=== PATIENT | male | born 1990 | race Caucasian/White ===

== ENCOUNTER 2022-12-02 08:45 | Outpatient (OUT) | payer OTHER, SELFPAY ==
[2022-12-03 04:07] LABS: Prolactin 6.1 ng/mL (4.0-15.2); Testosterone 110 ng/dL (264-916)
== END 2022-12-02 08:46 | disposition home or self-care (01) ==
LOC: LAB 08:53
PROVIDERS: PCP Nurse Practitioner Family; Visit Provider Urology
DX: E29.1 Testicular hypofunction (principal)
CPT/HCPCS: 36415; 84146; 84403

== ENCOUNTER 2022-12-17 20:04 | Inpatient (IN) | payer OTHER, SELFPAY ==
[2022-12-17 20:07] VITALS: BP 129/77; PULSE 128; RESP 22; TEMP 36.9; O2SAT 94; BMI 47.5
[2022-12-17 20:13] VITALS: O2SAT 94
--- NOTE | 2022-12-17 20:17 | ED.URI1 ---
HPI - URI/Sore Throat General Chief Complaint: Upper Respiratory Infection Stated Complaint: uri Time Seen by Provider: 12/17/22 20:12 Source: patient History of Present Illness HPI Narrative: ill for a couple of days. Cough with coughing jags. Chest pain with cough. Short of breath. no fever or nausea. No abdominal pain. Past history of diabetes. Doesn't smoke cigarettes but does vape elicited complaint: Reports cough Related Data Allergies Allergy/AdvReac Type Severity Reaction Status Date / Time No Known Drug Allergies Allergy Verified 12/17/22 20:11 Review of Systems ROS Status of ROS 10 or more systems reviewed and unremarkable except as noted in history and below Exam Constitutional Vital Signs, click to edit/add: Last Vital Signs Temp 98.5 F 12/17/22 20:07 Pulse 122 H 12/17/22 21:05 Resp 20 12/17/22 21:05 BP 129/77 12/17/22 20:07 Pulse Ox 96 12/17/22 21:05 O2 Del Method Nasal Cannula 12/17/22 21:05 O2 Flow Rate 2 12/17/22 21:05 Common normals: no apparent distress, oriented x3, healthy appearing, alert and well nourished [facility] Common normals: normocephalic and head/scalp atraumatic Eye Common normals: EOMs intact bilaterally and conjunctivae normal Chest Common normals: inspection of chest normal and palpation of chest normal Respiratory Common normals: normal respiratory effort, no retractions, no use of accessory muscles and clear to auscultation bilaterally Cardio Common normals: S1 normal heart sound and S2 normal heart sound Rate: tachycardic GI Common normals: Normal to inspection, nondistended, normoactive bowel sounds present, soft to palpation and non-tender Extremity Common normals: normal to inspection and full ROM Neuro Common normals: oriented x3, CN's II-XII intact bilaterally, moves all extremities, no focal motor deficits and no sensory deficits noted Psych Appearance: grossly normal Course Vital Signs Vital signs: Vital Signs Temperature 98.5 F 12/17/22 20:07 Pulse Rate 128 H 12/17/22 20:07 Respiratory Rate 22 12/17/22 20:07 Blood Pressure 129/77 12/17/22 20:07 Pulse Oximetry 94 L 12/17/22 20:07 Oxygen Delivery Method Room Air 12/17/22 20:07 Temperature 98.5 F 12/17/22 20:07 Pulse Rate 122 H 12/17/22 21:05 Respiratory Rate 20 12/17/22 21:05 Blood Pressure 129/77 12/17/22 20:07 Pulse Oximetry 96 12/17/22 21:05 Oxygen Delivery Method Nasal Cannula 12/17/22 21:05 Oxygen Delivery Flow Rate 2 12/17/22 21:05 MDM - URI/Sore Throat MDM Narrative Medical decision making narrative: patient presents with complaints of coughing jags, shortness of breath and feeling ill . chest is clear but he does start coughing after deep breath. No fever. WBC elevated at 14. sodium low at 128 and bicarb low also. Nasal swab positive for enter/rhino virus. Cxray is clear. Patient treated with duoneb without much improvement. pulse ox on 3L NC 90%. Discussed with hospitalist and will plan obs admission. Patient has past history of diabetes. RBS 302. he had no nausea or vomiting Lab Data Labs: Lab Results 12/17/22 12/17/22 Range/Units 20:40 20:55 WBC 14.0 H (4.0-11.0) 10^3/uL RBC 4.75 (4.70-6.10) 10^6/uL Hgb 15.5 (14.0-18.0) g/dL Hct 44.9 (42.0-54.0) % MCV 94.5 H (80.0-94.0) fL MCH 32.6 (25.9-34.0) pg MCHC 34.5 (29.9-35.2) g/dL RDW 13.2 (11.0-15.0) % Plt Count 225 (150-450) 10^3/uL MPV 11.7 (9.5-13.5) fL Neut % (Auto) 88.4 H (43.0-75.0) % Lymph % (Auto) 5.4 L (20.5-60.0) % [place] % (Auto) 5.1 (1.7-12.0) % Eos % (Auto) 0.2 L (0.9-7.0) % Baso % (Auto) 0.5 (0.2-2.0) % Neut # (Auto) 12.4 H (1.4-6.5) 10^3/uL Lymph # (Auto) 0.8 L (1.2-3.8) 10^3/uL [place] # (Auto) 0.7 (0.3-0.8) 10^3/uL Eos # (Auto) 0.0 (0.0-0.7) 10^3/uL Baso # (Auto) 0.1 (0.0-0.1) 10^3/uL Abs Immat Gran (auto) 0.05 H (0.00-0.03) 10^3/uL Imm/Tot Granulo (auto) 0.4 (0.0-0.5) % Sodium 128 L (136-145) mmol/L Potassium 4.2 (3.5-5.1) mmol/L Chloride 95 L (98-107) mmol/L Carbon Dioxide 16.8 L (21.0-32.0) mmol/L Anion Gap 20.4 BUN 8.0 (7.0-18.0) mg/dL Creatinine 0.74 (0.70-1.30) mg/dL Est GFR ( Amer) >60 (>=60) Est GFR (Non-Af Amer) >60 (>=60) BUN/Creatinine Ratio 10.8 Glucose 302 H (74-106) mg/dL Lactate <0.3 L (0.4-2.0) mmol/L Calcium 8.3 L (8.5-10.1) mg/dL Total Bilirubin 1.3 H (0.2-1.0) mg/dL AST 8 L (15-37) U/L ALT 50 (16-63) U/L Alkaline Phosphatase 101 (46-116) U/L Troponin I High Sens 4.4 (4.0-76.1) pg/mL Total Protein 7.6 (6.4-8.2) g/dL Albumin 3.4 (3.4-5.0) g/dL Globulin 4.2 g/dL Albumin/Globulin Ratio 0.8 Adenovirus (PCR) Not detected (NOT DETECTE) C. pneumoniae DNA (PCR) Not detected (NOT DETECTE) Coronavirus Type OC43 Not detected (NOT DETECTE) Coronavirus Type HKU1 Not detected (NOT DETECTE) Coronavirus Type 229E Not detected (NOT DETECTE) Coronavirus Type NL63 Not detected (NOT DETECTE) Human Metapneumovir PCR Not detected (NOT DETECTE) M. pneumoniae (PCR) Not detected (NOT DETECTE) Parainfluenza PCR Not detected (NOT DETECTE) Parainfluenza 2 (PCR) Not detected (NOT DETECTE) Parainfluenza 3 (PCR) Not detected (NOT DETECTE) Parainfluenza 4 (PCR) Not detected (NOT DETECTE) RSV (RT-PCR) Not detected (NOT DETECTE) Entero/Rhino (PCR) Detected A (NOT DETECTE) SARS-CoV-2 (PCR) Not detected (NOT DETECTE) Bordetella pertussis (PCR) Not detected (NOT DETECTE) B parapertussis DNA PCR Not detected (NOT DETECTE) Influenza Type A (PCR) Not detected (NOT DETECTE) Influenza Type B (PCR) Not detected (NOT DETECTE) Discharge Plan Discharge Chief Complaint: Upper Respiratory Infection Clinical Impression: Upper respiratory infection, Acute hyperglycemia, Hypoxemia, Hyponatremia, Viral infection Patient Disposition: Admitted as Observation
--- NOTE | 2022-12-17 20:20 | XR_ITS ---
[address] [address] Patient Name: SUHAIL RAYMOND MRN: [id number] date: 1990 Sex: M Assigned Patient Location: ER Current Patient Location: ER Accession/Order Number: [id number] Exam Date: 12/17/2022 20:50 Report Date: 12/17/2022 21:44 At the request of: NOLAN MOODY Procedure: XR chest 1V ONE-VIEW CHEST RADIOGRAPH, 12/17/2022 8:50 PM EDT COMPARISON: Chest, 05/15/2019 CLINICAL HISTORY: cough/shortness of breath and body aches FINDINGS: No acute cardiopulmonary disease. No pulmonary edema, pneumothorax, or pleural effusion. Normal heart size. No acute osseous abnormality. XR/XR chest 1V IMPRESSION: No acute abnormality identified. Electronically authenticated by: Adry FERNANDEZ Date: 12/17/2022 21:44
[2022-12-17 20:52] VITALS: PULSE 120; RESP 22; O2SAT 95
[2022-12-17] MEDS: IPRATROPIUM/ALBUTEROL SULFATE 3 ML AMPUL.NEB IH (20:52)
[2022-12-17] MEDS: ONDANSETRON PF 4 MG/2 ML VIAL IV (20:57)
[2022-12-17] MEDS: 0.9 % SODIUM CHLORIDE 1,000 ML 999 ML IV (20:57)
[2022-12-17 21:02] VITALS: O2SAT 92
--- NOTE | 2022-12-17 21:02 | PC.NURSE ---
PATIENT STARTED ON OXYGEN AT THIS TIME FOR COMFORT.
[2022-12-17 21:04] LABS: Adenovirus NOT DETECTED (NOT DETECTE); Bordetella parapertussis NOT DETECTED (NOT DETECTE); Coronavirus 229E NOT DETECTED (NOT DETECTE); Coronavirus HKU1 NOT DETECTED (NOT DETECTE); Coronavirus NL63 NOT DETECTED (NOT DETECTE); Coronavirus OC43 NOT DETECTED (NOT DETECTE); Human Metapneumovirus NOT DETECTED (NOT DETECTE); Influenza A NOT DETECTED (NOT DETECTE); Influenza B NOT DETECTED (NOT DETECTE); Mycoplasma pneumoniae NOT DETECTED (NOT DETECTE); Parainfluenza Virus 1 NOT DETECTED (NOT DETECTE); Parainfluenza Virus 2 NOT DETECTED (NOT DETECTE); Parainfluenza Virus 3 NOT DETECTED (NOT DETECTE); Parainfluenza Virus 4 NOT DETECTED (NOT DETECTE); Respiratory Syncytial Virus NOT DETECTED (NOT DETECTE); SARS-CoV-2 NOT DETECTED (NOT DETECTE)
[2022-12-17 21:05] VITALS: PULSE 122; RESP 20; O2SAT 96
[2022-12-17 21:08] LABS: Basophils Absolute Auto 0.1 10^3/uL (0.0-0.1); Basophils Percent Auto 0.5 % (0.2-2.0); Eosinophils Percent Auto 0.2 % (0.9-7.0); Hematocrit 44.9 % (42.0-54.0); Hemoglobin 15.5 g/dL (14.0-18.0); Immature Granulocytes Abs Auto 0.05 10^3/uL (0.00-0.03); Immature Granulocytes Pct Auto 0.4 % (0.0-0.5); Lymphocytes Absolute Auto 0.8 10^3/uL (1.2-3.8); Lymphocytes Percent Auto 5.4 % (20.5-60.0); Mean Corpuscular HGB Conc 34.5 g/dL (29.9-35.2); Mean Corpuscular Hemoglobin 32.6 pg (25.9-34.0); Mean Corpuscular Volume 94.5 fL (80.0-94.0); Mean Platelet Volume 11.7 fL (9.5-13.5); Monocytes Absolute Auto 0.7 10^3/uL (0.3-0.8); Monocytes Percent Auto 5.1 % (1.7-12.0); Neutrophils Absolute Auto 12.4 10^3/uL (1.4-6.5); Neutrophils Percent Auto 88.4 % (43.0-75.0); Platelet Count 225 10^3/uL (150-450); Red Blood Count 4.75 10^6/uL (4.70-6.10); Red Cell Distribution Width 13.2 % (11.0-15.0)
[2022-12-17 21:26] LABS: Lactate/Lactic Acid <0.3 mmol/L (0.4-2.0)
[2022-12-17 21:33] LABS: Alanine Aminotransferase 50 U/L (16-63); Albumin Globulin Ratio 0.8; Albumin Level 3.4 g/dL (3.4-5.0); Alkaline Phosphatase 101 U/L (46-116); Anion Gap 20.4; Aspartate Amino Transferase 8 U/L (15-37); BUN Creatinine Ratio 10.8; Bilirubin Total 1.3 mg/dL (0.2-1.0); Calcium 8.3 mg/dL (8.5-10.1); Carbon Dioxide 16.8 mmol/L (21.0-32.0); Chloride 95 mmol/L (98-107); Estimated GFR (African America >60 (>=60); Estimated GFR (Non-African Ame >60 (>=60); Globulin 4.2 g/dL; Glucose 302 mg/dL (74-106); Potassium 4.2 mmol/L (3.5-5.1); Sodium 128 mmol/L (136-145); Total Protein 7.6 g/dL (6.4-8.2); Troponin I High Sensitivity 4.4 pg/mL (4.0-76.1)
[2022-12-17 21:57] LABS: Human Rhinovirus/Enterovirus DETECTED (NOT DETECTE)
[2022-12-17 23:43] VITALS: BP 137/81; PULSE 118; RESP 20; TEMP 37.6; O2SAT 92; BMI 49.9
[2022-12-18] VITALS (8 sets, daily range): BP systolic 96–130; BP diastolic 60–79; PULSE 91–114; RESP 18–24; TEMP 36.3–37; O2SAT 90–95
[2022-12-18 00:26] LABS: Glucometer 263 mg/dL (74-106)
--- NOTE | 2022-12-18 00:51 | P.PN_ITS ---
Progress Note: Subjective Subjective Interval history: CC: Fever, chills, generalized body aches, shortness of breath, dry cough HPI: This is usually healthy 32 years old obese white male who presents with above complaints. Patient stating that he has not been feeling well for the last few days developing above symptoms. On evaluation emergency room patient found to be hypoxic. Patient not using oxygen at home. No previous history of hypoxic. Patient tested positive for entero and rhinovirus. No signs of pneumonia on chest x-ray. Admitted for further evaluation and treatment Exam Narrative Exam Narrative: ROS: 1.General: See above 2.HEENT: no GALDAMEZ, no blurry vision, no swallow problems, no nasal congestion, no sore throat 3.Pulmonary: no cough, SOB, wheezes 4.CVS: no CP, no palpitations, no GEIGER, no SOB, no intermittent claudication 5.GI: no nausea, vomiting or diarrhea, no abdominal pain, no constipation, no hematemesis or hematochezia 6.: no renal colic, no hematuria, urinary frequency or urgency 7.Extremities: no edema 8.Neurological: no dizziness, vertigo, double or blurry vision, no no focal weakness, no paresthesia, no swallow or speech problems 9.Musculosceletal: no joint pains, no joint swelling, no back pain 10.Dermatological: no skin rashes, no lesions, no pruritus 11.Hematological: no bleeding, no hx/o clots 12.Endocrinological: no heat/cold intolerance, no hx/o diabetes 13.Psychiatric: no suicidal or homicidal thoughts Physical Exam: Not in distress, pleasant, lucid, cooperative, morbidly obese Head - atraumatic, eyes - pupils equal, round, reactive to light, extra ocular movement intact, MMM Neck - supple, thyroid not enlarged, LN not palpated Lungs - clear to auscultation, no dullness on percussion CVS - heart sounds S1, S2, no additional murmurs gallop, regular rate and rhythm Gastrointestinal?abdomen is soft, non-tender, non-distended, no organomegaly, positive bowel sounds Extremities no clubbing, cyanosis or edema Neurological?cranial nerve II?XII grossly intact, no meningeal signs, no cerebellar signs, no sensory deficit Musculoskeletal - joints, no effusions, ROM preserved Dermatological - the skin dry, warm, no rashes Psychiatric?patient is AAO X3, patient has normal affect Constitutional Vital Signs, click to edit/add: Last Vital Signs Temp 99.7 F 12/17/22 23:43 Pulse 118 H 12/17/22 23:43 Resp 20 12/17/22 23:43 BP 137/81 12/17/22 23:43 Pulse Ox 92 L 12/17/22 23:43 O2 Del Method Nasal Cannula 12/17/22 23:43 O2 Flow Rate 2.5 12/17/22 23:43 Progress Note: Objective Labs Labs: Short CBC 12/17/22 Range/Units 20:40 WBC 14.0 H (4.0-11.0) 10^3/uL Hgb 15.5 (14.0-18.0) g/dL Hct 44.9 (42.0-54.0) % Plt Count 225 (150-450) 10^3/uL BMP 12/17/22 20:40 Sodium 128 L Potassium 4.2 Chloride 95 L Carbon Dioxide 16.8 L BUN 8.0 Creatinine 0.74 Glucose 302 H Calcium 8.3 L Liver Function 12/17/22 Range/Units 20:40 Total Bilirubin 1.3 H (0.2-1.0) mg/dL AST 8 L (15-37) U/L ALT 50 (16-63) U/L Alkaline Phosphatase 101 (46-116) U/L Albumin 3.4 (3.4-5.0) g/dL Progress Note: A&P Assessment and Plan (1) Upper respiratory infection: Assessment and Plan: Patient tested positive for entero and rhinovirus?symptoms control (2) Hypoxemia: Assessment and Plan: Most probably related to the above. Cannot exclude chronic due to patient's body habitus. I am going to check blood gas to delineate further. Also going to check CT angiogram of the chest to rule out pulmonary embolism (patient has a history of) (3) Diabetes: Assessment and Plan: I am going to continue with ADA diet, Accu-Cheks, coverage with insulin sliding scale (4) History of pulmonary embolism: Assessment and Plan: See above Plan END: As the provider for the telehealth service, I attest that I introduced myself to the patient, provided my credentials, disclosed by location and determined that based on a review of the patient's chart and discussion with members of the patient's treatment team, telemedicine via real-time, 2 way, and interactive audio and video platform is an appropriate and effective means of providing the service. ?The patient and I mutually agree this visit is appropriate for telemedicine. ?[place] ?The encounter took approximately 35 minutes. ?The nurse was present during the entire time and I was able to move the stethoscope in appropriate directions. ?The patient was evaluated at the Hospital ? Portions of this note may be dictated using [employer] voice recognition software. Variances in spelling and vocabulary are possible and unintentional. Not all errors may be caught and/or corrected. Please notify the author if any discrepancies are noted and/or if the meaning of any statement is unclear.? ? Patient verbally consented for treatment via video visit with patient currently located at the [facility] and provider located in [place]. Telemedicine Attestation Telemedicine Attestation I conducted this encounter from [[place]] via secure live, [id number] video conference with the patient, located at [facility] with [hypoxia]. Prior to the interview, the risks and benefits of telemedicine were discussed with the patient and verbal consent was obtained.
--- NOTE | 2022-12-18 00:56 | CT_ITS ---
The [address] [address] Patient Name: SUHAIL RAYMOND MRN: [id number] date: 1990 Sex: M Assigned Patient Location: MS Current Patient Location: [place] Accession/Order Number: [id number] Exam Date: 12/18/2022 02:40 Report Date: 12/18/2022 03:34 At the request of: SANDRA Olivarez SISTER Procedure: CT angio chest EXAM: CT angio chest HISTORY: pulmonary embolism? COMPARISON: 10/04/2020, MR 10/25/2020 TECHNIQUE: CT angiography of the pulmonary arteries following the administration of intravenous contrast. Coronal and sagittal MIP (maximum intensity projection) images were performed. FINDINGS: The study is technically adequate for the diagnosis of pulmonary embolism, with good contrast bolus to the pulmonary arteries. TUBES AND IMPLANTS: None. CHEST WALL AND LOWER NECK: Unremarkable. BONES: No suspicious lesions. Multilevel degenerative changes of the spine UPPER ABDOMEN: Hepatic steatosis. Hyperdense focus seen in the left liver lobe measuring up to 1.9 centimeters prior study dated 10/25/2020 MEDIASTINUM AND JOSEP: Unremarkable. AORTA: Unremarkable. PULMONARY ARTERIES: Unremarkable. HEART: Borderline enlarged CORONARY ARTERIES: No coronary artery calcifications. LUNG AND AIRWAYS: Confluent airspace seen in the right upper lobe and in the bilateral lower lobes PLEURA: Unremarkable. CT/CT angio chest IMPRESSION: 1. No evidence for pulmonary embolism. 2. Confluent airspace disease seen in the right upper lobe and in the bilateral lower lobe concerning for multifocal pneumonia. 3. Hepatic steatosis. Stable size of 1.9 centimeter hyperdense focus seen in the left lobe of the liver compared to 10/04/2020, suggesting benign etiology. Electronically authenticated by: MARY DHALIWAL Date: 12/18/2022 03:34
[2022-12-18 01:48] LABS: ABG PCO2 34.4 mmHg (35.0-45.0); Allen Test POSITIVE (POSITIVE); Base Excess ABG -9.7 mmol/L (-2.0-2.0); HCO3 ABG 16.8 mmol/L (22.0-26.0); Liters per Minute 2; O2 Mode NASAL CANNULA; Oxygen Saturation ABG 93.4 %; PO2 ABG 68.8 mmHg (80.0-100.0); Puncture Site R RADIAL
[2022-12-18 01:50] LABS: pH ABG 7.297 (7.350-7.450)
[2022-12-18] MEDS: INSULIN DETEMIR 300 UNIT/3 ML INSULN.PEN 10 UNIT SUBQ ×2 (01:51→21:28)
[2022-12-18] MEDS: IBUPROFEN 600 MG TABLET PO (01:51)
[2022-12-18] MEDS: 0.9 % SODIUM CHLORIDE 1,000 ML 100 ML IV ×2 (01:52→15:22)
[2022-12-18] MEDS: IPRATROPIUM/ALBUTEROL SULFATE 3 ML AMPUL.NEB IH ×4 (04:21→23:33)
[2022-12-18 05:13] LABS: Basophils Absolute Auto 0.1 10^3/uL (0.0-0.1); Basophils Percent Auto 0.4 % (0.2-2.0); Eosinophils Absolute Auto 0.1 10^3/uL (0.0-0.7); Eosinophils Percent Auto 0.4 % (0.9-7.0); Hematocrit 42.3 % (42.0-54.0); Hemoglobin 14.4 g/dL (14.0-18.0); Immature Granulocytes Abs Auto 0.05 10^3/uL (0.00-0.03); Immature Granulocytes Pct Auto 0.4 % (0.0-0.5); Lymphocytes Absolute Auto 1.8 10^3/uL (1.2-3.8); Lymphocytes Percent Auto 12.4 % (20.5-60.0); Mean Corpuscular Hemoglobin 32.7 pg (25.9-34.0); Mean Corpuscular Volume 96.1 fL (80.0-94.0); Mean Platelet Volume 11.2 fL (9.5-13.5); Monocytes Absolute Auto 0.8 10^3/uL (0.3-0.8); Monocytes Percent Auto 5.8 % (1.7-12.0); Neutrophils Absolute Auto 11.5 10^3/uL (1.4-6.5); Neutrophils Percent Auto 80.6 % (43.0-75.0); Platelet Count 207 10^3/uL (150-450); Red Cell Distribution Width 13.5 % (11.0-15.0); White Blood Count 14.3 10^3/uL (4.0-11.0)
[2022-12-18 05:22] LABS: Anion Gap 20.9; BUN Creatinine Ratio 11.2; Calcium 8.3 mg/dL (8.5-10.1); Chloride 97 mmol/L (98-107); Estimated GFR (African America >60 (>=60); Estimated GFR (Non-African Ame >60 (>=60); Glucose 308 mg/dL (74-106); Potassium 3.9 mmol/L (3.5-5.1); Sodium 130 mmol/L (136-145)
--- NOTE | 2022-12-18 08:28 | P.HP_ITS ---
H&P: HPI History of Present Illness Chief complaint: uri Narrative: Patient presented to the emergency room with increasing respiratory distress, found to be hypoxic in ER, work-up showed possible viral with positive rhinovirus but multifocal pneumonia with leukocytosis with left shift, respiratory and metabolic acidosis. Patient mated for work-up and treatment of same Review of Systems ROS Status of ROS 10 or more systems reviewed and unremarkable except as noted in history and below Constitutional Denies: fever Eyes Denies: change in vision Ears, nose, mouth, and throat Denies: throat pain Cardiovascular Denies: chest pain Respiratory Reports: shortness of breath, cough, wheezing and change in phlegm color Gastrointestinal Denies: abdominal pain Genitourinary Denies: painful urination Musculoskeletal Denies: back pain PFSH PFSH Medical History (Updated 12/18/22 @ 08:39 by Hossein Santos MD) Diabetic acidosis, type II ?E11.10 - Type 2 diabetes mellitus with ketoacidosis without coma (ICD-10) Gangrene ?I96 - Gangrene, not elsewhere classified (ICD-10) Pulmonary embolus ?I26.99 - Other pulmonary embolism without acute cor pulmonale (ICD-10) Surgical History (Updated 12/17/22 @ 23:41 by Cherise Garcia) H/O vasectomy ?Z98.52 - Vasectomy status (ICD-10) [place] teeth extracted ?K08.409 - Partial loss of teeth, unspecified cause, unspecified class (ICD- 10) Family History (Updated 12/17/22 @ 23:41 by Cherise Garcia) Grandfather Family history of cancer Grandmother Family history of cancer Social History (Updated 12/17/22 @ 23:43 by Cherise Garcia) Within the past year, how often did you have a drink containing alcohol: never Score interpretation: A score less than 4 is consistent with normal alcohol consumption. Do you use any of these nicotine containing products: vaping products Non-prescribed substance use: denies use Previous occupational history: none Highest level of school completed/degree received: high school graduate Are you now , , , , never or living with a partner: In a typical week, how many times do you talk on the telephone with family, friends, or neighbors: once per week How often do you get together with friends or relatives: once per week How often do you attend restorationism or zoroastrianism services: never Do you belong to any clubs or organizations such as restorationism groups unions, fraternal or athletic groups, or school groups: no Total score: 1 Score interpretation: A score of less than or equal to 1 indicates the most socially isolated. Little interest or pleasure in doing things: several days Feeling down, depressed, or hopeless: several days Feel stressed/tense/nervous/anxious/difficulty sleeping: only a little Do you think of yourself as: straight/heterosexual Gender Identity: male Meds Home Medications and Allergies Home Medications Medication Instructions Recorded Confirmed Type No Known Home Medications 12/17/22 12/17/22 History Allergies Allergy/AdvReac Type Severity Reaction Status Date / Time No Known Drug Allergies Allergy Verified 12/17/22 20:11 Exam Constitutional Vital Signs, click to edit/add: Last Vital Signs Temp 98 F 12/18/22 05:21 Pulse 114 H 12/18/22 05:21 Resp 20 12/18/22 05:21 BP 130/79 12/18/22 05:21 Pulse Ox 94 L 12/18/22 05:21 O2 Del Method Nasal Cannula 12/18/22 05:21 O2 Flow Rate 2 12/18/22 05:21 Documenting provider has reviewed patient's vital signs: yes Common normals: apparent distress General appearance: in distress Chest Common normals: inspection of chest normal Respiratory Common normals: abnormal respiratory effort and not clear to ascultation bilaterally Auscultation: rhonchi (Diffuse), wheezes and egophony (Egophony bilateral lower lobes) Cardio Common normals: regular rate, regular rhythm and no murmurs GI Common normals: Normal to inspection, nondistended, normoactive bowel sounds present (Morbidly obese) Results Labs Labs: Short CBC 12/17/22 12/18/22 Range/Units 20:40 04:39 WBC 14.0 H 14.3 H (4.0-11.0) 10^3/uL Hgb 15.5 14.4 (14.0-18.0) g/dL Hct 44.9 42.3 (42.0-54.0) % Plt Count 225 207 (150-450) 10^3/uL BMP 12/17/22 12/18/22 20:40 04:39 Sodium 128 L 130 L Potassium 4.2 3.9 Chloride 95 L 97 L Carbon Dioxide 16.8 L 16.0 L BUN 8.0 9.0 Creatinine 0.74 0.80 Glucose 302 H 308 H Calcium 8.3 L 8.3 L Liver Function 12/17/22 Range/Units 20:40 Total Bilirubin 1.3 H (0.2-1.0) mg/dL AST 8 L (15-37) U/L ALT 50 (16-63) U/L Alkaline Phosphatase 101 (46-116) U/L Albumin 3.4 (3.4-5.0) g/dL ABG ABG results: 12/18/22 01:40 ABG pH 7.297 L* ABG pCO2 34.4 L ABG pO2 68.8 L ABG HCO3 16.8 L ABG O2 Saturation 93.4 ABG Base Excess -9.7 L Assessment and Plan Assessment and Plan (1) Upper respiratory infection: (2) Hypoxemia: (3) Diabetes: (4) History of pulmonary embolism: Plan Sinus tachycardia, acute hypoxic respiratory failure, relative hypoxia on 2 L, metabolic and respiratory acidosis with hyponatremia, leukocytosis with left shift, severely uncontrolled diabetes mellitus secondary to multifocal pneumonia resulting in sepsis-did test positive for viral agent but with progression of disease and left shift on CBC will add IV antibiotics, wheezes noted on exam so we will change patient's aerosols to [id number] with as needed aerosols as well. Check sputum culture Poorly controlled diabetes mellitus-increase insulin sliding scale-we will hold off on steroids to treat the above secondary to his poorly controlled diabetes already Hyponatremia likely secondary to dehydration somewhat improved today. Continue to monitor Leukocytosis with left shift secondary to multifocal pneumonia-continue with antibiotics as above Hepatic steatosis with mild borderline elevated bilirubin-we will monitor this more as an outpatient Morbidly obese with possible pickwickian syndrome-diet management With severity of illness high secondary to the multifocal pneumonia with hypoxia in the metabolic and respiratory acidosis-change patient to inpatient status
[2022-12-18] MEDS: BUDESONIDE 0.5 MG/2 ML AMPULE NEB IH ×2 (09:26→23:34)
[2022-12-18] MEDS: CEFTRIAXONE 1,000 MG in 0.9 % SODIUM CHLORIDE 50 ML 100 MG IV (09:33)
[2022-12-18] MEDS: L. ACIDOPHILUS/L.BULGARICUS 1 PACKET GRAN.PACK PO ×2 (09:33→21:28)
[2022-12-18] MEDS: INSULIN ASPART 300 UNIT/3 ML PEN SUBQ ×4 (10:33→21:29)
[2022-12-18] MEDS: LEVOFLOXACIN IN DEXTROSE 5 % 750 MG/150 ML IV.SOLN 100 MG IV (10:34)
[2022-12-18] MEDS: ACETAMINOPHEN 500 MG TABLET 1000 MG PO ×3 (10:36→23:10)
[2022-12-18 11:35] LABS: Glucometer 268 mg/dL (74-106)
[2022-12-18 16:53] LABS: Glucometer 249 mg/dL (74-106)
[2022-12-18] MEDS: FLUTICASONE PROPIONATE 50 MCG NASAL SPRAY 2 SPRAY NS (18:26)
[2022-12-18 20:55] LABS: Glucometer 247 mg/dL (74-106)
[2022-12-18] MEDS: SOLIFENACIN SUCCINATE 10 MG TABLET PO (21:28)
[2022-12-19] MEDS: 0.9 % SODIUM CHLORIDE 1,000 ML 100 ML IV (01:26)
[2022-12-19] MEDS: IBUPROFEN 600 MG TABLET PO (01:31)
[2022-12-19 05:32] VITALS: PULSE 82; RESP 18; O2SAT 94
[2022-12-19] MEDS: IPRATROPIUM/ALBUTEROL SULFATE 3 ML AMPUL.NEB IH ×2 (05:32→11:12)
[2022-12-19 05:48] LABS: Basophils Percent Auto 0.6 % (0.2-2.0); Eosinophils Absolute Auto 0.1 10^3/uL (0.0-0.7); Hematocrit 38.2 % (42.0-54.0); Hemoglobin 12.6 g/dL (14.0-18.0); Immature Granulocytes Abs Auto 0.05 10^3/uL (0.00-0.03); Immature Granulocytes Pct Auto 0.8 % (0.0-0.5); Lymphocytes Absolute Auto 1.3 10^3/uL (1.2-3.8); Lymphocytes Percent Auto 19.9 % (20.5-60.0); Mean Corpuscular Hemoglobin 32.1 pg (25.9-34.0); Mean Corpuscular Volume 97.4 fL (80.0-94.0); Mean Platelet Volume 11.2 fL (9.5-13.5); Monocytes Absolute Auto 0.5 10^3/uL (0.3-0.8); Monocytes Percent Auto 7.3 % (1.7-12.0); Neutrophils Absolute Auto 4.6 10^3/uL (1.4-6.5); Neutrophils Percent Auto 69.4 % (43.0-75.0); Platelet Count 179 10^3/uL (150-450); Red Blood Count 3.92 10^6/uL (4.70-6.10); White Blood Count 6.6 10^3/uL (4.0-11.0)
[2022-12-19] MEDS: HYDROCODONE/ACET 5-325 MG TABLET 1 TAB PO (05:51)
[2022-12-19 05:54] VITALS: BP 124/60; PULSE 71; RESP 18; TEMP 36.8; O2SAT 92
[2022-12-19 06:14] LABS: Alanine Aminotransferase 30 U/L (16-63); Albumin Globulin Ratio 0.8; Albumin Level 2.9 g/dL (3.4-5.0); Alkaline Phosphatase 81 U/L (46-116); Anion Gap 16.7; Aspartate Amino Transferase <5 U/L (15-37); BUN Creatinine Ratio 11.9; Bilirubin Total 0.3 mg/dL (0.2-1.0); Calcium 8.2 mg/dL (8.5-10.1); Carbon Dioxide 18.9 mmol/L (21.0-32.0); Chloride 101 mmol/L (98-107); Estimated GFR (African America >60 (>=60); Estimated GFR (Non-African Ame >60 (>=60); Globulin 3.8 g/dL; Glucose 254 mg/dL (74-106); Potassium 3.6 mmol/L (3.5-5.1); Sodium 133 mmol/L (136-145); Total Protein 6.7 g/dL (6.4-8.2)
[2022-12-19 07:50] LABS: Glucometer 248 mg/dL (74-106)
[2022-12-19] MEDS: INSULIN ASPART 300 UNIT/3 ML PEN SUBQ ×2 (08:26→11:59)
[2022-12-19] MEDS: CEFTRIAXONE 1,000 MG in 0.9 % SODIUM CHLORIDE 50 ML 100 MG IV (08:28)
[2022-12-19] MEDS: FLUTICASONE PROPIONATE 50 MCG NASAL SPRAY 2 SPRAY NS (08:29)
--- NOTE | 2022-12-19 09:02 | PM.PN ---
Progress Note: Subjective Subjective Interval history: CC: Fever, chills, generalized body aches, shortness of breath, dry cough HPI: This is usually healthy 32 years old obese white male who presents with above complaints. Patient stating that he has not been feeling well for the last few days developing above symptoms. On evaluation emergency room patient found to be hypoxic. Patient not using oxygen at home. No previous history of hypoxic. Patient tested positive for entero and rhinovirus. No signs of pneumonia on chest x-ray. Admitted for further evaluation and treatment Exam Constitutional Vital Signs, click to edit/add: Last Vital Signs Temp 98.2 F 12/19/22 05:54 Pulse 71 12/19/22 05:54 Resp 18 12/19/22 05:54 BP 124/60 12/19/22 05:54 Pulse Ox 92 L 12/19/22 05:54 O2 Del Method Room Air 12/19/22 05:54 O2 Flow Rate 2 12/18/22 05:21 Progress Note: Objective Labs Labs: Short CBC 12/19/22 Range/Units 05:30 WBC 6.6 (4.0-11.0) 10^3/uL Hgb 12.6 L (14.0-18.0) g/dL Hct 38.2 L (42.0-54.0) % Plt Count 179 (150-450) 10^3/uL BMP 12/19/22 05:30 Sodium 133 L Potassium 3.6 Chloride 101 Carbon Dioxide 18.9 L BUN 8.0 Creatinine 0.67 L Glucose 254 H Calcium 8.2 L Liver Function 12/19/22 Range/Units 05:30 Total Bilirubin 0.3 (0.2-1.0) mg/dL AST <5 L (15-37) U/L ALT 30 (16-63) U/L Alkaline Phosphatase 81 (46-116) U/L Albumin 2.9 L (3.4-5.0) g/dL Progress Note: A&P Assessment and Plan (1) Upper respiratory infection: (2) Hypoxemia: (3) Diabetes: (4) History of pulmonary embolism:
[2022-12-19] MEDS: LEVOFLOXACIN IN DEXTROSE 5 % 750 MG/150 ML IV.SOLN 100 MG IV (09:40)
[2022-12-19 10:30] VITALS: O2SAT 94; O2SAT 96
[2022-12-19 11:10] LABS: Glucometer 303 mg/dL (74-106)
[2022-12-19 11:12] VITALS: PULSE 92; O2SAT 94
[2022-12-19] MEDS: BUDESONIDE 0.5 MG/2 ML AMPULE NEB IH (11:12)
--- NOTE | 2022-12-19 11:57 | PM.DS1 ---
DS: Providers Provider Date of admission: 12/18/22 08:59 Primary care physician: KRUPA DÍAZ Admitting clinician: Hossein Sanots Discharging clinician: Lisa Joyce DS: Diagnosis Discharge Diagnosis (1) Multifocal pneumonia: (2) Upper respiratory infection: (3) Hypoxemia: (4) Diabetes: (5) History of pulmonary embolism: DS: Summary Hospital Course Hospital Course: patient was found to have multifocal pneumonia as seen on CTA of the chest,was placed on Rocephin and Levaquin, scheduled nebulizer treatments and oxygen therapy as needed. At the time of discharge patient was saturating normal on room air also had normal saturation with ambulation. normal white blood cell count of 6.6, will be discharged home on Levaquin 750 mg daily ?5 days, albuterol inhaler to use every four hours while awake for the next two days and then just as needed and Tessalon Perles to use just as needed. Patient will have close follow-up with his primary care physician within 3-5 days to further assess his diabetes as an outpatient. Is to resume all other home medications. Patient is stable at the time of discharge please return to the hospital with any worsening signs or symptoms. Status at Discharge Functional status at discharge: independent ambulation Time Spent with Patient Time attestation: Total time spent providing and/or coordinating discharge services: Time spent: greater than 30 minutes Exam Narrative Exam Narrative: General: Patient is alert, and oriented to person, place and time with normal affect, proper hygiene, mobid obesity Skin: no visible rashes, or ulcers Head: atraumatic, acephalic Eyes: PERRLA, no nystagmus present, conjunctiva clear, no scleral icterus Heart: Normal rate and rhythm, no murmurs/rubs/gallops Lungs: no audible wheezes, crackles and normal breath sounds all lung chavis Abdomen: Normal audible bowel sounds, no distension, No palpable masses, no organomegaly, no rebound/guarding/ or rigidity Musculoskeletal: no swelling bilateral lower extremities Vascular: Normal carotid, radial, femoral, posterior tibial, and dorsalis pedis pulses Lymph: no supraclavicular, axillary, or anterior/posterior cervical adenopathy Neuro: CN II-X grossly intact, normal sensation upper and lower extremities Constitutional Vital Signs, click to edit/add: Last Vital Signs Temp 98.2 F 12/19/22 05:54 Pulse 92 H 12/19/22 11:12 Resp 18 12/19/22 05:54 BP 124/60 12/19/22 05:54 Pulse Ox 94 L 12/19/22 11:12 O2 Del Method Room Air 12/19/22 11:12 O2 Flow Rate 2 12/18/22 05:21 DS: Data Data Completed and Pending Labs on day of discharge: Labs from last 24 hours 12/19/22 12/19/22 12/19/22 11:09 07:49 05:30 WBC 6.6 RBC 3.92 L Hgb 12.6 L Hct 38.2 L MCV 97.4 H MCH 32.1 MCHC 33.0 RDW 14.0 Plt Count 179 MPV 11.2 Neut % (Auto) 69.4 Lymph % (Auto) 19.9 L Gentry % (Auto) 7.3 Eos % (Auto) 2.0 Baso % (Auto) 0.6 Neut # (Auto) 4.6 Lymph # (Auto) 1.3 Gentry # (Auto) 0.5 Eos # (Auto) 0.1 Baso # (Auto) 0.0 Abs Immat Gran (auto) 0.05 H Imm/Tot Granulo (auto) 0.8 H Sodium 133 L Potassium 3.6 Chloride 101 Carbon Dioxide 18.9 L Anion Gap 16.7 BUN 8.0 Creatinine 0.67 L Est GFR ( Amer) >60 Est GFR (Non-Af Amer) >60 BUN/Creatinine Ratio 11.9 Glucose 254 H Calcium 8.2 L Total Bilirubin 0.3 AST <5 L ALT 30 Alkaline Phosphatase 81 Total Protein 6.7 Albumin 2.9 L Globulin 3.8 Albumin/Globulin Ratio 0.8 POC Glucose 303 H 248 H 12/18/22 12/18/22 20:49 16:53 WBC RBC Hgb Hct MCV MCH MCHC RDW Plt Count MPV Neut % (Auto) Lymph % (Auto) Gentry % (Auto) Eos % (Auto) Baso % (Auto) Neut # (Auto) Lymph # (Auto) Gentry # (Auto) Eos # (Auto) Baso # (Auto) Abs Immat Gran (auto) Imm/Tot Granulo (auto) Sodium Potassium Chloride Carbon Dioxide Anion Gap BUN Creatinine Est GFR ( Amer) Est GFR (Non-Af Amer) BUN/Creatinine Ratio Glucose Calcium Total Bilirubin AST ALT Alkaline Phosphatase Total Protein Albumin Globulin Albumin/Globulin Ratio POC Glucose 247 H 249 H Discharge Plan Discharge Disposition: Home, Self-Care Discharge Medications: New benzonatate 100 mg Capsule 200 mg PO Q8H PRN (Reason: Cough) 10 Days Qty: 30 0RF albuterol sulfate 90 mcg/actuation HFA aerosol inhaler 2 inh inhalation Q4H PRN (Reason: shortness of breath or wheezing) 30 Days Qty: 8.5 0RF levofloxacin 750 mg tablet 750 mg PO DAILY 5 Days Qty: 5 0RF Continued imipramine pamoate 100 mg capsule 200 mg PO BEDTIME Levemir FlexPen 100 unit/mL (3 mL) insulin pen 100 unit subcut BID solifenacin 10 mg tablet 10 mg PO DAILY metformin 1,000 mg tablet 1,000 mg PO BID Activity: increase activity as tolerated Diet: advance to your usual diet Patient Instructions: Upper Respiratory Infection (DC) Activity Restrictions/Additional Instructions: Use albuterol every 4 hours while awake for 2 days then just as he needs it Forms: Portal Instructions Follow Up Appointments: Follow up with Dr Santos in 3-5 days. Please call Wednesday morning to make an appt - [phone] Discharge Date/Time: 12/19/22 13:48
--- NOTE | 2022-12-21 15:43 | CM.DCFOLLOWU ---
1st attempt discharge follow up call made by Floridalma Madison on 12/21/22, no answer at this time
--- NOTE | 2022-12-23 16:14 | CM.DCFOLLOWU ---
2nd attempt discharge follow up call made by Floridalma Madison on 12/23/22, no answer at this time.
--- NOTE | 2022-12-24 15:49 | CM.DCFOLLOWU ---
3 discharge follow up calls were attempted, no answer each time.
== END 2022-12-19 13:48 | disposition home or self-care (01) | DRG 720 ==
LOC: ER 23:02 → MS 23:41
PROVIDERS: Family Medicine; Internal Medicine; Admitting Provider Family Medicine; Emergency Provider Internal Medicine; Family Provider Family Medicine; PCP Nurse Practitioner Family; Visit Provider Family Medicine
DX: A41.9 Sepsis, unspecified organism (principal); J18.8 Other pneumonia, unspecified organism; J96.01 Acute respiratory failure with hypoxia; E87.4 Mixed disorder of acid-base balance; E87.1 Hypo-osmolality and hyponatremia; E66.2 Morbid (severe) obesity with alveolar hypoventilation; R65.20 Severe sepsis without septic shock; J06.9 Acute upper respiratory infection, unspecified; B34.1 Enterovirus infection, unspecified; R00.0 Tachycardia, unspecified; E11.65 Type 2 diabetes mellitus with hyperglycemia; E86.0 Dehydration; K76.0 Fatty (change of) liver, not elsewhere classified; Z68.42 Body mass index [BMI] 45.0-49.9, adult; Z79.84 Long term (current) use of oral hypoglycemic drugs; Z86.711 Personal history of pulmonary embolism; Z98.52 Vasectomy status; Z80.9 Family history of malignant neoplasm, unspecified
CPT/HCPCS: 0202U; 36415; 36600; 71045; 71275; 80048; 80053; 82805; 82948; 83605; 83880; 84484; 85025; 87070; 94640; 94761; 96365; 96366; 96367; 96375; 99285; G0378; Q3014; Q9967

== ENCOUNTER 2023-02-23 19:09 | Emergency (ER) | payer OTHER, SELFPAY ==
[2023-02-23 19:15] VITALS: BP 124/82; PULSE 100; RESP 18; TEMP 37; O2SAT 95; BMI 48.7
--- NOTE | 2023-02-23 19:29 | PC.NURSE ---
Pt presents to ER for left sided ear pain and sinus pressure Pt states this has been going on for several days and is worse at night time and mornings
--- NOTE | 2023-02-23 19:36 | ED_ITS ---
HPI - URI/Sore Throat General Chief Complaint: Upper Respiratory Infection Stated Complaint: URTI Time Seen by Provider: 02/23/23 19:20 Source: patient Limitations: no limitations History of Present Illness HPI Narrative: presents complaining of left sinus pressure for a couple of days and now has left ear pain. Tried irrigating his ear but it still feels like it it plugged. No dizziness , headache or fever. He is diabetic but states his BS are controlled. No associated nausea Related Data Allergies Allergy/AdvReac Type Severity Reaction Status Date / Time No Known Drug Allergies Allergy Verified 02/23/23 19:19 Review of Systems ROS Status of ROS 10 or more systems reviewed and unremark able except as noted in history and below [facility] Medical History (Updated 02/23/23 @ 19:40 by [place] Mor[place] MD) History of pulmonary embolism ?Z86.711 - Personal history of pulmonary embolism (ICD-10) Diabetes ?E11.9 - Type 2 diabetes mellitus without complications (ICD-10) Gangrene ?I96 - Gangrene, not elsewhere classified (ICD-10) Pulmonary embolus ?I26.99 - Other pulmonary embolism without acute cor pulmonale (ICD-10) Diabetic acidosis, type II ?E11.10 - Type 2 diabetes mellitus with ketoacidosis without coma (ICD-10) Acute hyperglycemia ?R73.9 - Hyperglycemia, unspecified (ICD-10) Surgical History (Updated 12/17/22 @ 23:41 by Cherise Garcia) [place] teeth extracted ?K08.409 - Partial loss of teeth, unspecified cause, unspecified class (ICD- 10) H/O vasectomy ?Z98.52 - Vasectomy status (ICD-10) Family History (Updated 12/17/22 @ 23:41 by Cherise Garcia) Grandfather Family history of cancer Grandmother Family history of cancer Social History (Updated 12/17/22 @ 23:43 by Cherise Garcia) Within the past year, how often did you have a drink containing alcohol: never Score interpretation: A score less than 4 is consistent with normal alcohol consumption. Smoking status: Current every day smoker Do you use any of these nicotine containing products: vaping products Non-prescribed substance use: denies use Previous occupational history: none Highest level of school completed/degree received: high school graduate Are you now , , , , never or living with a partner: In a typical week, how many times do you talk on the telephone with family, friends, or neighbors: once per week How often do you get together with friends or relatives: once per week How often do you attend orthodox or moravian services: never Do you belong to any clubs or organizations such as orthodox groups unions, fraternal or athletic groups, or school groups: no Total score: 1 Score interpretation: A score of less than or equal to 1 indicates the most socially isolated. Little interest or pleasure in doing things: several days Feeling down, depressed, or hopeless: several days Feel stressed/tense/nervous/anxious/difficulty sleeping: only a little Do you think of yourself as: straight/heterosexual Gender Identity: male Exam Constitutional Vital Signs, click to edit/add: Last Vital Signs Temp 98.6 F 02/23/23 19:15 Pulse 100 H 02/23/23 19:15 Resp 18 02/23/23 19:15 BP 124/82 02/23/23 19:15 Pulse Ox 95 02/23/23 19:15 O2 Del Method Room Air 02/23/23 19:15 Common normals: no apparent distress, oriented x3, no limitations, healthy appearing, alert and well nourished HENNM Other: left TM inflamed Eye Common normals: PERRL, EOMs intact bilaterally and conjunctivae normal Respiratory Common normals: normal respiratory effort, no retractions, no use of accessory muscles and clear to auscultation bilaterally Cardio Common normals: regular rate, regular rhythm, S1 normal heart sound and S2 normal heart sound Extremity Common normals: normal to inspection and full ROM Neuro Common normals: CN's II-XII intact bilaterally, moves all extremities and no focal motor deficits Psych Appearance: grossly normal Course Vital Signs Vital signs: Vital Signs Temperature 98.6 F 02/23/23 19:15 Pulse Rate 100 H 02/23/23 19:15 Respiratory Rate 18 02/23/23 19:15 Blood Pressure 124/82 02/23/23 19:15 Pulse Oximetry 95 02/23/23 19:15 Oxygen Delivery Method Room Air 02/23/23 19:15 Temperature 98.6 F 02/23/23 19:15 Pulse Rate 100 H 02/23/23 19:15 Respiratory Rate 18 02/23/23 19:15 Blood Pressure 124/82 02/23/23 19:15 Pulse Oximetry 95 02/23/23 19:15 Oxygen Delivery Method Room Air 02/23/23 19:15 MDM - URI/Sore Throat MDM Narrative Medical decision making narrative: patient presents with acute onset of left maxillary pressure and left ear pain. Found to have an inflamed left TM. Given dose of Augmentin in the department and discharged home with a prescription for Augmentin. Adviosed to follow up with his doctor next week for recheck Discharge Plan Discharge Chief Complaint: Upper Respiratory Infection Clinical Impression: Acute left otitis media Patient Disposition: Home, Self-Care Instructions: Ear Infection (ED) Additional Instructions: follow up with your doctor next week for recheck Stand Alone Forms: Portal Instructions Referrals: KRUPA DÍAZ [Primary Care Provider] - 1 week
[2023-02-23] MEDS: AMOXICILLIN/POTASSIUM CLAV 1 TAB TABLET PO (20:00)
== END 2023-02-23 20:04 | disposition home or self-care (01) ==
PROVIDERS: Emergency Provider Internal Medicine; Family Provider Family Medicine; PCP Nurse Practitioner Family
DX: H66.92 Otitis media, unspecified, left ear (principal); E11.9 Type 2 diabetes mellitus without complications; Z86.711 Personal history of pulmonary embolism; Z98.52 Vasectomy status
CPT/HCPCS: 99283

== ENCOUNTER 2023-07-20 09:35 | Outpatient (OUT) | payer OTHER, SELFPAY ==
--- NOTE | 2023-07-20 09:41 | XR_ITS ---
[address] [address] Patient Name: SUHAIL RAYMOND MRN: [facility]:[id number] date: 1990 Sex: M Assigned Patient Location: LAB Current Patient Location: LAB Accession/Order Number: [id number] Exam Date: 07/20/2023 09:45 Report Date: 07/20/2023 14:03 At the request of: KRUPA DÍAZ Procedure: XR lumbar spine 2-3V EXAMINATION: XR thoracic spine 3V, XR lumbar spine 2-3V HISTORY: Thoracic Back Pain M54.6 COMPARISON: CTA chest 12/18/2022, MRI lumbar spine 06/18/2022 FINDINGS: BONES: Mild right convex curvature of mid thoracic spine. Mild anterior wedging of L1 vertebral body. Mild degenerative facet arthropathy L5-S1. DISC SPACES: Moderate disc space narrowing L4-5. PARASPINOUS: Negative. No paraspinous abnormality is seen. OTHER: Negative. XR/XR lumbar spine 2-3V IMPRESSION: 1. Mild dextrocurvature of mid thoracic spine, unchanged. 2. Mild degenerative disc disease and facet arthropathy of lower lumbar spine; not appreciably changed. 3. Slight anterior wedging of L1; new versus slightly suboptimal image projection. Electronically authenticated by: VANESSA LYN Date: 07/20/2023 14:03
--- NOTE | 2023-07-20 09:41 | XR_ITS ---
[address] [address] Patient Name: SUHAIL RAYMOND MRN: [id number] date: 1990 Sex: M Assigned Patient Location: LAB Current Patient Location: LAB Accession/Order Number: [id number] Exam Date: 07/20/2023 09:45 Report Date: 07/20/2023 14:03 At the request of: KRUPA DÍAZ Procedure: XR thoracic spine 3V EXAMINATION: XR thoracic spine 3V, XR lumbar spine 2-3V HISTORY: Thoracic Back Pain M54.6 COMPARISON: CTA chest 12/18/2022, MRI lumbar spine 06/18/2022 FINDINGS: BONES: Mild right convex curvature of mid thoracic spine. Mild anterior wedging of L1 vertebral body. Mild degenerative facet arthropathy L5-S1. DISC SPACES: Moderate disc space narrowing L4-5. PARASPINOUS: Negative. No paraspinous abnormality is seen. OTHER: Negative. XR/XR thoracic spine 3V IMPRESSION: 1. Mild dextrocurvature of mid thoracic spine, unchanged. 2. Mild degenerative disc disease and facet arthropathy of lower lumbar spine; not appreciably changed. 3. Slight anterior wedging of L1; new versus slightly suboptimal image projection. Electronically authenticated by: VANESSA LYN Date: 07/20/2023 14:03
[2023-07-20 10:06] LABS: Basophils Absolute Auto 0.1 10^3/uL (0.0-0.1); Basophils Percent Auto 0.7 % (0.2-2.0); Eosinophils Absolute Auto 0.1 10^3/uL (0.0-0.7); Eosinophils Percent Auto 1.4 % (0.9-7.0); Hematocrit 43.6 % (42.0-54.0); Hemoglobin 14.7 g/dL (14.0-18.0); Immature Granulocytes Abs Auto 0.01 10^3/uL (0.00-0.03); Immature Granulocytes Pct Auto 0.1 % (0.0-0.5); Lymphocytes Absolute Auto 2.7 10^3/uL (1.2-3.8); Lymphocytes Percent Auto 38.2 % (20.5-60.0); Mean Corpuscular HGB Conc 33.7 g/dL (29.9-35.2); Mean Corpuscular Hemoglobin 31.9 pg (25.9-34.0); Mean Corpuscular Volume 94.6 fL (80.0-94.0); Mean Platelet Volume 10.9 fL (9.5-13.5); Monocytes Absolute Auto 0.5 10^3/uL (0.3-0.8); Monocytes Percent Auto 6.8 % (1.7-12.0); Neutrophils Absolute Auto 3.7 10^3/uL (1.4-6.5); Neutrophils Percent Auto 52.8 % (43.0-75.0); Platelet Count 265 10^3/uL (150-450); Red Blood Count 4.61 10^6/uL (4.70-6.10); Red Cell Distribution Width 13.1 % (11.0-15.0); White Blood Count 7.1 10^3/uL (4.0-11.0)
[2023-07-20 10:46] LABS: Alanine Aminotransferase 45 U/L (16-63); Albumin Globulin Ratio 0.9; Albumin Level 3.5 g/dL (3.4-5.0); Alkaline Phosphatase 114 U/L (46-116); Aspartate Amino Transferase 6 U/L (15-37); BUN Creatinine Ratio 16.7; Bilirubin Total 0.4 mg/dL (0.2-1.0); Calcium 9.1 mg/dL (8.5-10.1); Carbon Dioxide 27.2 mmol/L (21.0-32.0); Chloride 100 mmol/L (98-107); Chol HDL Ratio 7.5; Cholesterol 271 mg/dL (<=200); Estimated GFR (African America >60 (>=60); Estimated GFR (Non-African Ame >60 (>=60); Globulin 4.1 g/dL; Glucose 237 mg/dL (74-106); HDL Cholesterol 36 mg/dL (40-60); Potassium 4.2 mmol/L (3.5-5.1); Sodium 139 mmol/L (136-145); Thyroid Stimulating Hormone 2.732 uIU/mL (0.358-3.740); Total Protein 7.6 g/dL (6.4-8.2); Triglycerides 996 mg/dL (<=150); Uric Acid 6.6 mg/dL (3.5-7.2); VLDL CHOLESTEROL 199.2 mg/dL
[2023-07-20 10:53] LABS: LDL Cholesterol Direct 102 mg/dL
[2023-07-20 11:02] LABS: Estimated Average Glucose 223 mg/dL; Glycohemoglobin A1C 9.4 % (4.5-6.2)
[2023-07-20 11:14] LABS: Prostate Specific Antigen Scrn 0.31 ng/mL (<=4.00)
[2023-07-21 04:09] LABS: Testosterone 123 ng/dL (264-916)
[2023-07-21 12:10] LABS: Insulin 18.4 uIU/mL (2.6-24.9)
== END 2023-07-20 09:36 | disposition home or self-care (01) ==
PROVIDERS: Family Provider Family Medicine; PCP Nurse Practitioner Family; Visit Provider Nurse Practitioner Family
DX: M51.26 Other intervertebral disc displacement, lumbar region (principal); E11.9 Type 2 diabetes mellitus without complications; M54.6 Pain in thoracic spine
CPT/HCPCS: 36415; 72072; 72100; 80053; 80061; 83036; 83525; 83721; 84403; 84436; 84443; 84481; 84550; 85025; G0103

== ENCOUNTER 2023-08-04 13:15 | Outpatient (OUT) | payer OTHER, SELFPAY ==
--- NOTE | 2023-08-04 13:55 | PM.CN ---
Consult Note: HPI Data of Consult Patient: new to practice Requesting Physician: Scarlet Jaffe NP Primary Care Provider: KRUPA DÍAZ Family Provider: Hossein Santos MD Consult Narrative Reason for consult: establish Narrative: Enio Parmar a pleasant 32 year old male presents for evaluation and management of chronic whole back pain, has had pain greater than 5 years without known onset/cause. Pain constant tightness sharp burning, today pain 7/10 increases to 10/10 randomly, with long periods of activity, standing, walking, grocery shopping. Severe functional limitations at home. Upcoming PT, however has failed to benefit from PT in the past. Hx of uncontrolled DM, recent A1c 9.4%. cc:: CC: Scarlet Jaffe NP Review of Systems ROS Status of ROS 10 or more systems reviewed and unremarkable except as noted in history and below Musculoskeletal Reports: back pain PFSH PFSH Medical History History of pulmonary embolism ?Z86.711 - Personal history of pulmonary embolism (ICD-10) Diabetes ?E11.9 - Type 2 diabetes mellitus without complications (ICD-10) Gangrene ?I96 - Gangrene, not elsewhere classified (ICD-10) Pulmonary embolus ?I26.99 - Other pulmonary embolism without acute cor pulmonale (ICD-10) Diabetic acidosis, type II ?E11.10 - Type 2 diabetes mellitus with ketoacidosis without coma (ICD-10) Acute hyperglycemia ?R73.9 - Hyperglycemia, unspecified (ICD-10) Surgical History [place] teeth extracted ?K08.409 - Partial loss of teeth, unspecified cause, unspecified class (ICD-10) H/O vasectomy ?Z98.52 - Vasectomy status (ICD-10) Family History Grandfather Family history of cancer Grandmother Family history of cancer Social History Within the past year, how often did you have a drink containing alcohol: never Score interpretation: A score less than 4 is consistent with normal alcohol consumption. Smoking status: Current every day smoker Do you use any of these nicotine containing products: vaping products Non-prescribed substance use: denies use Previous occupational history: none Highest level of school completed/degree received: high school graduate Are you now , , , , never or living with a partner: In a typical week, how many times do you talk on the telephone with family, friends, or neighbors: once per week How often do you get together with friends or relatives: once per week How often do you attend oriental orthodox or taoism services: never Do you belong to any clubs or organizations such as oriental orthodox groups unions, [employer] or athletic groups, or school groups: no Total score: 1 Score interpretation: A score of less than or equal to 1 indicates the most socially isolated. Little interest or pleasure in doing things: several days Feeling down, depressed, or hopeless: several days Feel stressed/tense/nervous/anxious/difficulty sleeping: only a little Do you think of yourself as: straight/heterosexual Gender Identity: male Meds Home Medications and Allergies Allergies Allergy/AdvReac Type Severity Reaction Status Date / Time No Known Drug Allergies Allergy Verified 02/23/23 19:19 Exam Constitutional Documenting provider has reviewed patient's vital signs: yes Common normals: no apparent distress, oriented x3, healthy appearing, alert and well nourished General appearance: cooperative HENMT Common normals: normocephalic, hearing grossly normal bilaterally and moist oral mucous membranes Head and scalp: normocephalic Eye Common normals: PERRL Pupil: PERRL Neck & C-Spine Common normals: full ROM General: normal visual inspection Chest Common normals: inspection of chest normal Respiratory Common normals: normal respiratory effort, no retractions and no use of accessory muscles Back & Pelvis Thoracic spine/upper back: normal to inspection, ROM limited, pain with ROM, thoracic spinal tenderness and paraspinal muscle tenderness Lumbar spine/lower back: normal to inspection, ROM limited, pain with ROM, lumbar spinal tenderness and paraspinal muscle tenderness Other: diffuse tenderness as noted below Back image (male): 1. 2. 3. 4. 5. 6. Extremity Common normals: normal to inspection and full ROM Neuro Common normals: oriented x3, CN's II-XII intact bilaterally, moves all extremities, no focal motor deficits, no sensory deficits noted, deep tendon reflexes 2+ bilaterally and gait normal Sensorium/orientation: alert Motor exam: strength 5/5 throughout and no movement abnormalities noted Psych Common normals: mental status grossly normal, thought process normal, cooperative, affect normal, speech normal and activity/motor behavior normal Speech: normal speech Thought process: normal thought process Results Additional Findings Additional findings: If on a controlled substance or opioids, I have checked an [place]AR[place] report on this patient and there are no aberrancies noted in the prescribing history.??If on a controlled substance or opioid a drug screen was completed and reviewed within the last year, and if there has not been a drug screen completed we ordered one today to monitor higher risk, state monitored pain medication use. As part of providing excellent, safe, comprehensive care, the following was completed at our patient's visit: 1. A medication reconciliation and review to ensure accurate knowledge of current/active medications, including asking our patients to inform us about any [id number] medications or herbal remedies/nutritional supplements/alternative remedies. 2. A review to specifically ensure our patients have had annual screening for screening for depression, screening for tobacco use, and screening for unhealthy alcohol use. For concerning screenings had a discussion with the patient, provided patient education, and recommended follow-up with primary care provider when appropriate. If patient noted with a risk of falling, they received education on strength, gait, and balance training to prevent future risk of falling. Assessment and Plan Assessment and Plan (1) Lumbar spondylosis: (2) Myofascial pain: (3) Fibromyalgia: Assessment and Plan: diffuse tenderness on exam, chronic pain that shifts and moves around from neck to thighs. Historically unresponsive to all medications such as motrin, diclofenac, mobic, aleve, tylenol, gabapentin, tizanidine, flexeril, baclofen, percocet, hydrocodone, morphine, toradol, dilaudid. cannot recall trying lyrica, SSRIs, or SNRIs (4) Low back pain, unspecified: Plan start lyrica 50mg TID, call to discuss effectiveness and adjust dose. risks vs benefits and potential side effects reviewed. Has failed about listed therapies, i believe with chronic pain and symptoms of fibromyalgia lyrica would be beneficial TENS discussed and ordered upcoming PT continue aquatherapy consider duloxetine or LDN in the future continue f/u with PCP, recent A1c 9.4%. 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
== END 2023-08-04 13:16 | disposition home or self-care (01) ==
PROVIDERS: Family Provider Family Medicine; PCP Nurse Practitioner Family; Visit Provider Nurse Practitioner
DX: M47.816 Spondylosis without myelopathy or radiculopathy, lumbar region (principal); M79.18 Myalgia, other site
CPT/HCPCS: G0463

== ENCOUNTER 2023-08-17 13:03 | Outpatient (RCR) | payer OTHER, SELFPAY | END 2023-09-03 17:06 | disposition home or self-care (01) | LOC: PT 13:03 | PROVIDERS: Family Provider Family Medicine; PCP Nurse Practitioner Family; Visit Provider Nurse Practitioner Family | DX: M54.16 Radiculopathy, lumbar region (principal) | CPT/HCPCS: 97110; 97161 ==

== ENCOUNTER 2023-12-07 15:43 | Outpatient (OUT) | payer OTHER, SELFPAY ==
[2023-12-07 16:34] LABS: Estimated Average Glucose 137 mg/dL; Glycohemoglobin A1C 6.4 % (4.5-6.2)
[2023-12-07 16:52] LABS: Alanine Aminotransferase 47 U/L (16-63); Albumin Level 3.5 g/dL (3.4-5.0); Alkaline Phosphatase 111 U/L (46-116); Aspartate Amino Transferase 23 U/L (15-37); BUN Creatinine Ratio 11.5; Bilirubin Total 0.3 mg/dL (0.2-1.0); Calcium 8.9 mg/dL (8.5-10.1); Carbon Dioxide 24.9 mmol/L (21.0-32.0); Chloride 104 mmol/L (98-107); Chol HDL Ratio 4.7; Cholesterol 202 mg/dL (<=200); Estimated GFR (African America >60 (>=60 mL/min/1.73m^2); Estimated GFR (Non-African Ame >60 (>=60 mL/min/1.73m^2); Globulin 3.6 g/dL; Glucose 133 mg/dL (74-106); HDL Cholesterol 43 mg/dL (40-60); Potassium 3.9 mmol/L (3.5-5.1); Sodium 136 mmol/L (136-145); Total Protein 7.1 g/dL (6.4-8.2); Triglycerides 183 mg/dL (<=150); VLDL CHOLESTEROL 36.6 mg/dL
[2023-12-09 04:12] LABS: Testosterone 242 ng/dL (264-916)
== END 2023-12-07 15:44 | disposition home or self-care (01) ==
PROVIDERS: Family Provider Family Medicine; PCP Nurse Practitioner Family; Visit Provider Nurse Practitioner Family
DX: E29.1 Testicular hypofunction (principal); E11.9 Type 2 diabetes mellitus without complications
CPT/HCPCS: 36415; 80053; 80061; 83036; 84403

== ENCOUNTER 2024-01-13 03:11 | Emergency (ER) | payer OTHER, SELFPAY ==
[2024-01-13 03:17] VITALS: BP 164/110; PULSE 92; TEMP 36.6; O2SAT 98; BMI 36.5
--- NOTE | 2024-01-13 03:26 | ED_ITS ---
HPI HPI - General Adult General Chief complaint: Dental/Oral Stated complaint: dental pain Time Seen by Provider: 01/13/24 03:25 Source: patient Mode of arrival: walk-in Limitations: no limitations History of Present Illness HPI narrative: Patient presenting to the emergency department for evaluation of dental pain. Patient states that he knows he has cavities in the bottom right teeth. For couple weeks, but since yesterday the pain seems to be getting worse. Has an appointment for fillings but this next year because of his insurance. Patient states he is not having any drooling, trismus, is not having any difficulty eating, swallowing or drinking. He just could not get to sleep tonight pain was aching him. No other this time Related Data Home Medications ?Medication ?Instructions ?Recorded ?Confirmed atorvastatin 20 mg tablet 20 mg PO DAILY 08/04/23 08/04/23 imipramine pamoate 100 mg capsule 100 mg PO BEDTIME 08/04/23 08/04/23 insulin detemir U-100 100 unit/mL 50 unit subcut BID 08/04/23 08/04/23 (3 mL) subcutaneous pen (Levemir FlexPen) liraglutide 0.6 mg/0.1 mL (18 mg/3 1.2 mg subcut DAILY 08/04/23 08/04/23 mL) subcutaneous pen injector (Victoza 3-Cachorro) metformin 1,000 mg tablet 1,000 mg PO BID 08/04/23 08/04/23 semaglutide 0.25 mg or 0.5 mg (2 2 mg subcut .weekly 01/13/24 01/13/24 mg/3 mL) subcutaneous pen injector (Ozempic) Previous Rx's ?Medication ?Instructions ?Recorded pregabalin 50 mg capsule (Lyrica) 50 mg PO TID #90 caps 08/04/23 naproxen 500 mg tablet 500 mg PO Q12H PRN pain 5 days #20 01/13/24 tabs penicillin V potassium 500 mg 500 mg PO Q8H 10 days #30 tabs 01/13/24 tablet Allergies Allergy/AdvReac Type Severity Reaction Status Date / Time No Known Drug Allergies Allergy Verified 01/13/24 03:21 Opioid HPI Opioid Management Most Recent Opioid Data: Last Pain Scale 8 01/13/24 03:25 01/13/24 Last ED Pain Assessment 01/13/24 03:25 Review of Systems ROS Narrative Negative unless otherwise stated in the HPI PFSH PFS Medical History History of pulmonary embolism ?Z86.711 - Personal history of pulmonary embolism (ICD-10) Diabetes ?E11.9 - Type 2 diabetes mellitus without complications (ICD-10) Gangrene ?I96 - Gangrene, not elsewhere classified (ICD-10) Pulmonary embolus ?I26.99 - Other pulmonary embolism without acute cor pulmonale (ICD-10) Diabetic acidosis, type II ?E11.10 - Type 2 diabetes mellitus with ketoacidosis without coma (ICD-10) Acute hyperglycemia ?R73.9 - Hyperglycemia, unspecified (ICD-10) Surgical History [place] teeth extracted ?K08.409 - Partial loss of teeth, unspecified cause, unspecified class (ICD- 10) H/O vasectomy ?Z98.52 - Vasectomy status (ICD-10) Family History Grandfather Family history of cancer Grandmother Family history of cancer Social History Within the past year, how often did you have a drink containing alcohol: never Score interpretation: A score less than 4 is consistent with normal alcohol consumption. Smoking status: Current every day smoker Do you use any of these nicotine containing products: vaping products Non-prescribed substance use: denies use Previous occupational history: none Highest level of school completed/degree received: high school graduate Are you now , , , , never or living with a partner: In a typical week, how many times do you talk on the telephone with family, friends, or neighbors: once per week How often do you get together with friends or relatives: once per week How often do you attend congregation or gnosticist services: never Do you belong to any clubs or organizations such as congregation groups unions, fraternal or athletic groups, or school groups: no Total score: 1 Score interpretation: A score of less than or equal to 1 indicates the most socially isolated. Little interest or pleasure in doing things: not at all Feeling down, depressed, or hopeless: not at all Feel stressed/tense/nervous/anxious/difficulty sleeping: only a little Do you think of yourself as: straight/heterosexual Gender Identity: male Exam Narrative Exam Narrative: General: NAD, AAOx3, no distress HEENT: NCAT, mmm, tooth #31 at the lingual surface there is a cavity, hole with dentin, pulp exposed Neck: Supple, no LAD, negative Kernig/Brudzinski, non meningeal, no bruit Constitutional Vital Signs, click to edit/add: Last Vital Signs Temp 98 F 01/13/24 03:17 Pulse 92 H 01/13/24 03:17 Resp 20 01/13/24 03:17 BP 164/110 H 01/13/24 03:17 Pulse Ox 98 01/13/24 03:17 O2 Del Method Room Air 01/13/24 03:17 Course Vital Signs Vital signs: Vital Signs Temperature 98 F 01/13/24 03:17 Pulse Rate 92 H 01/13/24 03:17 Respiratory Rate 20 01/13/24 03:17 Blood Pressure 164/110 H 01/13/24 03:17 Pulse Oximetry 98 01/13/24 03:17 Oxygen Delivery Method Room Air 01/13/24 03:17 Temperature 98 F 01/13/24 03:17 Pulse Rate 92 H 01/13/24 03:17 Respiratory Rate 20 01/13/24 03:17 Blood Pressure 164/110 H 01/13/24 03:17 Pulse Oximetry 98 01/13/24 03:17 Oxygen Delivery Method Room Air 01/13/24 03:17 Medical Decision Making MDM Narrative Medical decision making narrative: Pt presenting for the above primary dental complaint, likely dental infection, with no signs of facial or intra-oral abscess. Pt was started on Abx, given pain meds for home, will start taking Motrin, tid Listerine rinses, Orajel prn, brushing, and given list of outpatient dental resources. Advanced guidance has been given. Vss, pex is benign at this time. Pt to fu with pcp 1-2 days for reeval, rter should sx worsen, persist or become worrysome in any way. Pt expressed understanding and agreement with plan of care at this time. Will fu as planned. Pt stable for discharge. Medical Records Medical records reviewed: Yes I reviewed the patient's medical records Discharge Plan Discharge Chief Complaint: Dental/Oral Clinical Impression: Pain, dental Patient Disposition: Home, Self-Care Time of Disposition Decision: 03:28 Prescriptions / Home Meds: New penicillin V potassium 500 mg tablet 500 mg PO Q8H 10 Days Qty: 30 0RF naproxen 500 mg tablet 500 mg PO Q12H PRN (Reason: pain) 5 Days Qty: 20 0RF No Action pregabalin [Lyrica] 50 mg capsule 50 mg PO TID Qty: 90 0RF metformin 1,000 mg tablet 1,000 mg PO BID Levemir FlexPen 100 unit/mL (3 mL) insulin pen 50 unit SUBCUT BID Victoza 3-Cachorro 0.6 mg/0.1 mL (18 mg/3 mL) pen injector 1.2 mg subcut DAILY atorvastatin 20 mg tablet 20 mg PO DAILY imipramine pamoate 100 mg capsule 100 mg PO BEDTIME Ozempic 0.25 mg or 0.5 mg (2 mg/3 mL) pen injector 2 mg SUBCUT .weekly Print Language: Citizen Of [place] Instructions: Toothache (ED) Additional Instructions: Follow-up with your PCP in the next 1 to 2 days. Return to the emergency department should symptoms worsen or become worrisome in any way. Follow-up with the emergency dentist as discussed Referrals: KRUPA DÍAZ [Primary Care Provider] - 1 week
--- OUTSIDE RECORDS SUMMARY | 2024-01-13 03:35 | XMS_ITS | CCD ---
Author Organization [facility] Care Team Providers Care Geriatric Nursing Assistant Name Role Phone Jackelin Hale Primary Care Provider [phone] MD Patricio Chakraborty Attending Provider [phone] NONE, XXXX Primary Care Physician Unavailab le NO FAMILY, PHYSICIAN Primary Care Provider Unava ilable MD Oliver Diehl Jr Emergency Provider MD Segun Cho Emergency Provider Bailey Vanegas Unavailable Shruthi Billingsley Unavailable Unavailable Primary Care Provider UnavailSHRUTHI Beatty Primary Care Physician NO FAMILY, PHYSICIAN Primary Care Provider Unava ilMD Dell Brooks Admit Provider MD Dell Kim Attending Provider NO FAMILY, PHYSICIAN Primary Care Unavailable Oliver Diehl Jr Admitting Unavailable Oliver Diehl Jr Attending Unavailable NO FAMILY, PHYSICIAN Primary Care Unavailable Segun Cho Admitting Unavailable Segun Cho Attending Unavailable Patricio Chakraborty Admitting Unavailable Patricio Chakraborty Attending Unavailable Jackelin Hale Primary Care Unavailable Dell Kim Admitting Unavailable Dell Kim Attending Unavailable NO FAMILY, PHYSICIAN Primary Care Unavailable NOE HALE JACKELIN Primary Care Unavailable DR ELIUD IRIZARRY V Consulting Unavailable SHRUTHI DÍAZ Admitting Unavailable SHRUTHI DAÍZ Attending Unavailable SHRUTHI DÍAZ Consulting Unavailable SHRUTHI DÍAZ Primary Care Unavailable LAKSHMIPATHY ., NARENDRANATH Admitting Tram vailable LAKSHMIPATHY ., NARENDRANATH Consulting Tram vailable LAKSHMIPATHY ., NARENDRANATH Attending Tram vailable SHRUTHI DÍAZ Primary Care Unavailable LAKSHMIPATHY ., NARENDRANATH Admitting Tram vailable LAKSHMIPATHY ., NARENDRANATH Consulting Tram vailable LAKSHMIPATHY ., NARENDRANATH Attending Tram vailable HOY ., DR CABA Attending Unavailable HOY ., DR CABA Admitting Unavailable ARJUN, SHRUTHI Primary Care Unavailable SHRUTHI DÍAZ Consulting Unavailable HONixon ., DR CABA Admitting Unavailable HOY ., DR CABA Attending Unavailable ARJUN, SHRUTHI Primary Care Unavailable FRANSISCO, NOLAN Consulting Unavailable NOLAN MOODY Attending Unavailable FRANSISCO, NOLAN Admitting Unavailable ARJUN, SHRUTHI Primary Care Unavailable SEGUN GALLEGOS Consulting Unavailable LALITA ., GARRISON Attending Unavailable LALITA ., GARRISON Admitting Unavailable JILLIAN .CHARLES Consulting Unavailclaudia chacko [facility], SHRUTHI Primary Care Unavailable ELIUD HERNANDEZ Consulting Unavailable FAWWAD, WRIGHT H Admitting Unavailable AICHHOLZ, KNIT GOODS MENDER JACKELIN Primary Care Unavailable FAWWAD, WRIGHT H Attending Unavailable AICHOLZ, KNIT GOODS MENDER JACKELIN Primary Care Unavailable SHRUTHI DÍAZ Attending Unavailable ARJUN, SHRUTHI Admitting Unavailable FAWWAD, WRIGHT H Attending Unavailable FAWWAD, WRIGHT H Admitting Unavailable AICHHOLZ, KNIT GOODS MENDER JACKELIN Primary Care Unavailable FAWWAD, WRIGHT H Admitting Unavailable FAWWAD, WRIGHT H Attending Unavailable ARJUN, SHRUTHI Primary Care Unavailable ARJUN, SHRUTHI Primary Care Unavailable FAWWAD, WRIGHT H Admitting Unavailable FAWWAD, WRIGHT H Attending Unavailable LUANN SEYMOUR Consulting Unavailable ARJUN, SHRUTHI Primary Care Unavailable LUANN SEYMOUR Admitting Unavailable LUANN SEYMOUR Attending Unavailable NAMAN CLAYTON Consulting Unavailable SILVANA ., DR CABA Attending Unavailable HONixon ., DR CABA Admitting Unavailable HONixon .DR CABA Consulting Unavailable ARJUN, SHRUTHI Primary Care Unavailable DR ELENI HOPKINS Consulting Unavailable NOLAN MOODY Consulting Unavailable JUANITA RIEVRA Consulting Unavailable GERTRUDIS CHAUHAN Consulting Unavailable ARJUN, SHRUTHI Primary Care Unavailable ARJUN, SHRUTHI Attending Unavailable ARJUN, SHRUTHI Admitting Unavailable ARJUN, SHRUTHI Primary Care Unavailable LAKSHMIPATHY ., NARENDRANATH Admitting Tram vailable LAKSHMIPATHY ., NARENDRANATH Attending Tram vailable ARJUN, SHRUTHI Primary Care Unavailable ARJUN, SHRUTHI Attending Unavailable ARJUN, SHRUTHI Consulting Unavailable ARJUN, SHRUTHI Admitting Unavailable ARJUN, SHRUTHI Primary Care Unavailable LAKSHMIPATHY ., NARENDRANATH Admitting Tram vailable LAKSHMIPATHY ., NARENDRANATH Consulting Tram vailable LAKSHMIPATHY ., NARENDRANATH Attending Tram vailable ARJUN, SHRUTHI Primary Care Unavailable FAWWAD, WRIGHT H Admitting Unavailable FAWWAD, WRIGHT H Attending Unavailable ARJUN, SHRUTHI Primary Care Unavailable CHAKRABORTY ., DR GOETZ Attending Unavailable CHAKRABORTY ., DR GOETZ Admitting Unavailable AICHHOLZ, NOE GUTIERREZ Primary Care Unavailable ARJUN, SHRUTHI Attending Unavailable ARJUN, SHRUTHI Admitting Unavailable WEIGHT, TAHIR Attending Unavailable CHAKRABORTY, Patricio R Attending Unavailable CHAKRABORTY, Patricio Vidales Admitting Unavailable YURIDIA, Wilian Vidales Admitting Unavailable OJUKWU, Mbanefo Attending Unavailable MARIANA BRIGGS Attending Unavailable CHAKRABORTY, Patricio Vidales Attending Unavailable CHAKRABORTY, Patricio Vidales Attending Unavailable CHAKRABORTY, Patricio Vidales Attending Unavailable CHAKRABORTY, Patricio Vidales Attending Unavailable CHAKRABORTY, Patricio Vidales Attending Unavailable Allergies Allergy Classification Reported Allergen(s) Allergy Type Date of Onset Reaction(s) Facility (1 source) No Known Medication Allergies; Translations: [No Known Medication Allergies] Propensity to adverse reactions (disorder) [facility] [place] Repository Medications Current Medications Medication Drug Class(es) Dates Sig (Normalized) Sig (Original) acetaminophen 325 mg / oxyCODONE hydrochloride 5 mg oral tablet (5 sources) Opioid Agonist Start: 08-10-2021 End: 04-01-2022 take 1 tablet by mouth every four to six hours Oxycodone-Acetami nophen (Percocet) 5-325 mg tablet Active 1 - 2 TAB PO EVERY 4-6 HOURS 14 August 10, 2021 7:30pm Start: 07-31-2021 End: 04-01-2022 take 1 tablet by mouth every six hours Oxycodone-Acetaminophen (Percocet) 5-325 mg tablet Active 1 - 2 TAB PO Every 6 hours 15 July 31, 2021 11:45pm [id number] 200 actuat albuterol 0.09 mg/actuat metered dose inhaler (4 sources) beta2-Adrenergic Agonist Start: 03-24-2021 take 2 puff(s) by inhalation four times daily as needed Albuterol Sulfate HFA 108 (90 Base) MCG/ACT 2 puffs Inhalation qid prn Mar, Active Start: 11-02-2019 albuterol Refi lls(s) 0 Start Date: 11/02/19 Status: Ordered Amitriptyline (1 source) Tricyclic Antidepressant Start: 12-15-2021 amitriptyline Oral, Once a day (at bedtime), Refills(s) 0 Start Date: 12/15/21 Status: Ordered ARIPiprazole 10 mg oral tablet (6 sources) Atypical Antipsychotic Start: 04-04-2022 take 10 mg by mouth once daily Aripiprazole Active 10 MG PO Daily April 04, 2022 12:00am Start: 02-16-2022 End: 04-04-2022 aripiprazole 5 mg Tab 30 tab (s), Refills(s) 0 Start Date: 02/16/22 Status: Ordered Azithromycin (2 sources) Macrolide Antimicrobial Start: 12-15-2021 azithr omycin 250 mg Tab Refills(s) 0 Start Date: 12/15/21 Status: Ordered Start: 03-24-2021 Zithromax 250 MG 2 tablet on the first day, then 1 tablet daily for 4 days Orally Once a day for 5 day(s) Mar, Active baclofen 10 mg oral tablet (1 source) gamma-Aminobutyric Acid-ergic Agonist Start: 07-13-2022 take 1 tablet by mouth three times daily as needed for pain baclofen 10 mg Tab 10 mg = 1 tab(s), Oral, TID, PRN Muscle pain, Refills(s) 0 Start Date: 07/13/22 Status: Ordered 24 hr buPROPion hydrochloride 450 mg extended release oral tablet (19 sources) Aminoketone Start: 04-04-2022 take 450 mg by mouth once daily in the morning Bupropion Hcl Active 450 MG PO Every morning April 04, 2022 12:00am Start: 12-15-2021 take 1 tablet by jason th every twenty-four hours buPROPion 300 mg XL /24 hrs mg tab(s), Oral, q24hr, Refills(s) 0 Start Date: 12/15/21 Status: Ordered Start: 12-15-2021 take 1 tablet by jason every twenty-four hours buPROPion 300 mg XL /24 hrs mg tab(s), Oral, q24hr, Refills(s) 0 Start Date: 12/15/21 Status: Ordered Start: 06-09-2021 take 1 mg by mouth twice daily buPROPion 150 mg ER Tab mg tab(s), Oral, BID, Refills(s) 0 Start Date: 06/09/21 Status: Ordered Start: 10-07-2020 take 1 tablet by mouth once da hazel buPROPion XL (WELLBUTRIN XL) 150 mg 24 hr tablet Take 150 mg by mouth once daily. 0 06/24/2021 Active Start: 10-07-2020 End: 04-04-2022 Bupropion Hcl (Wellbutrin Xl ) 150 mg Tablet Extended Release 24 Hr Discontinued 300 MG PO Every morning October 06, 2020 11:00pm April 04, 2022 11:25am buPROPion HCl ER (XL) Active Comment on above: Take 150 mg by mouth once daily. desmopressin acetate 0.2 mg oral tablet (8 sources) Vasopressin Analog, Factor VIII Activator Start: 07-08-2022 take 1 tablet by mouth at bedtime DDAVP 0.2 mg oral tablet 0.2 mg = 1 tab(s), Oral, Bedtime, # 90 tab(s), Refills(s) 3, Pharmacy: [facility]/pharmacy #[id number], 190, ignacio, 06/11/22 8:47:00 EDT, Height/Length Dosing, 175, kg, 06/11/22 8:47:00 EDT, Weight Dosing Start Date: 07/08/22 Status: Ordered Start: 10-06-2021 take 2 tablets by mo [facility] at bedtime DDAVP 0.2 mg oral tablet 0.4 mg = 2 tab(s), Oral, Bedtime, # 180 tab(s), Refills(s) 2, Pharmacy: [facility]/pharmacy #[id number], 190, cm, 10/06/21 11:26:00 EDT, Height/Length Dosing, 175, kg, 10/06/21 11:26:00 EDT, Weight Dosing Start Date: 10/06/21 Status: Ordered Start: 10-06-2021 take 1 tablet by jason th three times daily DDAVP 0.2 mg oral tablet 0.2 mg = 1 tab(s), Oral, TID, # 90 tab(s), Refills(s) 2, Pharmacy: [facility]/pharmacy #[id number], ignacio Lindsey, 10/06/21 11:26:00 EDT, Height/Length Dosing, 175, kg, 10/06/21 11:26:00 EDT, Weight Dosing Start Date: 10/06/21 Status: Ordered Start: 06-09-2021 take 1 tablet by jason once daily DDAVP 0.2 mg oral tablet 0.2 mg = 1 tab(s), Oral, Daily, # 30 tab(s), Refills(s) 11, Pharmacy: [facility]/pharmacy #[id number], 190, ignacio, 06/09/21 13:52:00 EDT, Height/Length Dosing, 175, kg, 06/09/21 13:52:00 EDT, Weight Dosing Start Date: 06/09/21 Status: Ordered FLUoxetine 40 mg oral capsule (16 sources) Serotonin Reuptake Inhibitor Start: 04-04-2022 take 80 mg by mouth once daily Fluoxetine Active 80 MG PO Daily April 04, 2022 12:00am Start: 06-09-2021 take 1 mg by mouth once daily FLUoxetine 40 mg Cap mg cap(s), Oral, Daily, Refills(s) 0 Start Date: 06/09/21 Status: Ordered Start: 10-05-2020 take 1 capsule by mo [facility] once daily Fluoxetine (Prozac) 20 mg capsule Active 20 MG PO Daily October 05, 2020 9:32pm Start: 10-05-2020 End: 04-04-2022 take 3 capsules by mouth once daily Fluoxetine (Prozac) 20 mg capsule Discontinued 60 MG PO Daily October 04, 2020 11:00pm April 04, 2022 11:25am Comment on above: Take 40 mg by mouth once daily. Hyoscyamine (3 sources) Hyoscyamine Sulf ate Active imipramine pamoate 100 mg oral capsule (2 sources) Tricyclic Antidepressant Start: 11-23-2022 End: 06-21-2023 imipramine pamoate 100 mg oral capsule 200 mg = 2 cap(s), Oral, Once a day (at bedtime), pt is to take 200mg daily not bid., X 30 day(s), # 60 cap(s), Refills(s) 6, Pharmacy: [facility]/pharmacy #[id number], 190, cm, 11/23/22 11:45:00 EDT, Height/Length Dosing, 179.5, kg, 11/23/22 11:45:00 EDT, Weight Dosing Start Date: 11/23/22 Stop Date: 06/21/23 Status: Ordered 3 ml insulin detemir 100 unt/ml pen injector (20 sources) Insulin Analog Start: 04-01-2022 Insulin Detemir U-100 (Levemir Flextouch U-100 Insuln) 100 unit/mL (3 mL) insulin pen Active 50 UNITS SUBCUT Twice daily morning & bedtime April 01, 2022 10:09pm Start: 06-09-2021 Levemir SubCut aneous, Refills(s) 0 Start Date: 06/09/21 Status: Ordered Start: 10-09-2020 End: 09-28-2021 insulin detemir U-100 (LEVEM IR) 100 unit/mL (3 mL) injection pen Insulin Detemir U-100 (Levemir Flextouch U-100 Insuln) 100 unit/mL (3 mL) Insulin Pen Active 35 UNITS SUBCUT Daily 0 October 09, 2020 12:11pm 0 10/09/2020 Active Start: 10-09-2020 End: 04-01-2022 Insulin Detemir U-100 (Levem ir Flextouch U-100 Insuln) 100 unit/mL (3 mL) Insulin Pen Active 35 UNITS SUBCUT Daily 0 October 09, 2020 12:11pm Comment on above: Inject 30 Units subc utaneously once daily. Insulin Detemir U-10 0 (Levemir Flextouch U-100 Insuln) 100 unit/mL (3 mL) Insulin Pen Active 35 UNITS SUBCUT Daily 0 October 09, 2020 12:11pm methylPREDNISolone 4 mg oral tablet (1 source) Corticosteroid Medrol 4 MG as directed Orally as directed Active nicotine 2 mg chewing gum (1 source) Cholinergic Nicotinic Agonist Start: 023 Nicotine (Polacrilex) Active 2 MG BUCCAL Q2H 60 April 04, 2022 12:00am pantoprazole 40 mg delayed release oral tablet (18 sources) Proton Pump Inhibitor Start: take 1 mg by mouth once daily Pantoprazole [address] Tab mg tab(s), Oral, Daily, Refills(s) 0 Start Date: 06/09/21 Status: Ordered Start: 10-05-2020 End: 04-01-2022 take 1 mg by mouth once daily Pantoprazole [address] Ta b mg tab(s), Oral, Daily, Refills(s) 0 Start Date: 06/09/21 Status: Ordered Pantoprazole Sod ium Active Comment on above: Take 40 mg by mouth once daily. solifenacin succinate 10 mg oral tablet (8 sources) Cholinergic Muscarinic Antagonist Start: 12-16-19 take 1 tablet by mouth once daily Vesicare 10 mg Tab 10 mg = 1 tab(s), Oral, Daily, # 30 tab(s), Refills(s) 11, Pharmacy: [facility]/pharmacy #[id number], 190, cm, 12/15/21 14:21:00 EDT, Height/Length Dosing, 175, kg, 12/15/21 14:21:00 EDT, Weight Dosing Start Date: 12/15/21 Status: Ordered sulfamethoxazole 800 mg / trimethoprim 160 mg oral tablet (1 source) Dihydrofolate Reductase Inhibitor Antibacterial, Sulfonamide Antimicrobial Start: 07-14-19 End: 07-19-19 Bactrim D.S. 800 mg-160 mg Tab 160 mg, Oral, BID for 5 day(s), 10 tab(s), Refill(s) 0, [facility]/pharmacy #[id number], 193, cm, 07/11/22 20:16:00 EDT, Height/Length Dosing, 181.4, kg, 07/11/22 20:16:00 EDT, Weight Dosing Start Date: 07/13/22 Stop Date: 07/18/22 Status: Ordered SUMAtriptan 50 mg oral tablet (7 sources) Serotonin-1b and Serotonin-1d Receptor Agonist Start: 10-08-19 End: 04-01-19 take 1 tablet by mouth once Sumatriptan Succinate (Imitrex) 50 mg Tablet Active 50 MG PO Once October 07, 2020 5:33pm SUMAtriptan Succ inate Active Testosterone (1 source) Androgen Start: 04-01-2022 Testosterone A ctive 100 MG IM EVERY 2 WEEKS April 01, 2022 12:00am Takes every 2 weeks.First dose on 2022 Completed/Discontinued Medications Medication Drug Class(es) Dates Sig (Normalized) Sig (Original) atorvastatin 20 mg oral tablet (11 sources) HMG-CoA Reductase Inhibitor Start: 11-02-2019 End: 04-01-2022 take 1 tablet by mouth once daily Atorvastatin (Lipitor) 20 mg tablet Discontinued 20 MG PO Daily October 04, 2020 11:00pm April 01, 2022 9:17pm Comment on above: Take 20 mg by mouth once daily. DULoxetine 30 mg delayed release oral capsule (7 sources) Serotonin and Norepinephrine Reuptake Inhibitor Start: 10-05-2020 End: 10-05-2020 Duloxetine (Cymbalta) 30 mg capsule,delayed release(DR/EC) Discontinued MG PO October 05, 2020 9:32pm October 05, 2020 11:10pm DULoxetine HCl A ctive empagliflozin 10 mg oral tablet (7 sources) Sodium-Glucose Cotransporter 2 Inhibitor Start: 10-05-2020 End: 10-09-2020 take 1 tablet by mouth once daily Empagliflozin (Jardiance) 10 mg tablet Discontinued 10 MG PO Daily October 05, 2020 11:09pm October 09, 2020 12:21pm Jardiance Active Insulin Glargine (Lantus U-100 Insulin) 100 unit/mL Cartridge (4 sources) Start: 10-06-2020 End: 10-09-2020 inject 30 [IU] by subcutaneous injection once daily at bedtime Insulin Glargine (Lantus U-100 Insulin) 100 unit/mL Cartridge Discontinued 30 UNIT SUBCUT Daily at bedtime October 06, 2020 10:14pm October 09, 2020 12:21pm Start: 10-06-2020 End: 10-09-2020 inject 30 [IU] by subcutaneous injection once daily at bedtime Insulin Glargine (Lantus U-100 Insulin) 100 unit/mL Cartridge Discontinued 30 UNIT SUBCUT Daily at bedtime October 05, 2020 11:00pm October 09, 2020 11:21am ketoconazole 20 mg/ml topical cream (8 sources) Azole Antifungal Start: 05-21-2022 ketoconazole (NIZORAL) 2 % cream APPLY TO AFFECTED AREA 3 TIMES A DAY FOR 7 DAYS 0 07/26/2021 Active Start: 10-05-2020 End: 04-01-2022 Ketoconazole Active 1 APPLIC TOPICAL Daily October 05, 2020 11:09pm Comment on above: APPLY TO AFFECTED AR EA 3 TIMES A DAY FOR 7 DAYS lisinopril 20 mg oral tablet (20 sources) Angiotensin Converting Enzyme Inhibitor Start: 10-05-2020 take 10 mg by mouth once daily Lisinopril Active 10 MG PO Daily October 04, 2020 11:00pm Start: 11-02-2019 End: 07-13-2022 take 1 mg by mouth once daily lisinopril 20 mg Tab mg tab(s), Oral, Daily, Refills(s) 0 Start Date: 11/02/19 Status: Ordered Lisinopril Activ e Comment on above: Take 20 mg by mouth once daily. 24 hr metFORMIN hydrochloride 500 mg extended release oral tablet (20 sources) Biguanide Start: take 2 tablets by mouth twice daily metFORMIN ER (GLUCOPHAGE XR) 500 mg 24 hr tablet Take 2 tablets by mouth twice daily. 60 tablet 0 08/29/2021 Active Start: 11-02-2019 take 1 mg by mouth twice daily metformin 1000 mg oral tablet mg tab(s), Oral, BID, Refills(s) 0 Start Date: 11/02/19 Status: Ordered metFORMIN HCl ER Active Comment on above: Take 2 tablets by mo ut twice daily. tiZANidine 4 mg oral tablet (11 sources) Central alpha-2 Adrenergic Agonist Start: 10-05-2020 End: 04-01-2022 take 1 tablet by mouth once daily as needed for pain tiZANidine (ZANAFLEX) 4 mg tablet Take 4 mg by mouth once daily as needed for pain. 0 05/31/2021 Active tiZANidine HCl A ctive Comment on above: Take 4 mg by mouth o nce daily as needed for pain. warfarin sodium 7.5 mg oral tablet (7 sources) Vitamin K Antagonist Start: 09-02-2021 take 1 tablet by mouth once daily warfarin (COUMADIN) 7.5 mg tablet TAKE 1 TO 1 & 1/2 TABLETS BY MOUTH DAILY DIRECTED 0 09/02/2021 Active Start: 08-29-2021 take 1 tablet by jason th once daily warfarin (COUMADIN) 5 mg tablet Take 1 tablet by mouth once daily. 3 tablet 0 08/29/2021 Active Comment on above: Take 1 tablet by jason th once daily. TAKE 1 TO 1 & 1/2 TA BLETS BY MOUTH DAILY DIRECTED Problems Active Problems Problem Classification Problem Date Documented Da te Episodic/Chronic Bacterial infection; unspecified site (1 source) Personal history of Methicillin resistant Staphylococcus aureus infection; Translations: [PERS HX METHICILLIN RSIST STAPH INF] Onset: 3 Episodic Complications of surgical procedures or medical care (7 sources) Genitourinary tract hemorrhage; Translations: [Postprocedural hematoma of a genitourinary system organ or structure following a genitourinary system procedure] Onset: 2 07-31-2021 Episodic Diabetes mellitus with complications (5 sources) Diabetic ketoacidosis; Translations: [Type 2 diabetes mellitus with ketoacidosis without coma] Onset: 3 10-05-2020 Chronic Diabetes mellitus without complication (20 sources) Diabetes mellitus; Translations: [Type 2 diabetes mellitus without complications] Onset: 1 10-09-2020 Chronic Diabetes mellitus without complication (9 sources) Glycosuria; Translations: [Glycosuria] Onset: 2 Episodic Disorders of lipid metabolism (20 sources) Hypertriglyceridemia; Translations: [Pure hyperglyceridemia] 10-05-2020 Chronic E Codes: Fall (3 sources) Fall 07-11-2022 Esophageal disorders (10 sources) Gastroesophageal reflux disease; Translations: [Gastroesophageal reflux disease without esophagitis] Onset: 3 11-02-2019 Chronic Essential hypertension (10 sources) Hypertensive disorder; Translations: [Essential (primary) hypertension] Onset: 3 11-02-2019 Chronic Fever of unknown origin (4 sources) Fever; Translations: [Fever, unspecified] Onset: 2 08-22-2021 Episodic Fluid and electrolyte disorders (4 sources) Electrolyte imbalance; Translations: [Other disorders of electrolyte and fluid balance, not elsewhere classified] Onset: 2 08-21-2021 Episodic Gastrointestinal hemorrhage (9 sources) Rectal hemorrhage 11-02-2019 Episodic Genitourinary symptoms and ill-defined conditions (20 sources) Intermittent urinary incontinence; Translations: [Nocturnal enuresis] Onset: 2 11-02-2019 Chronic Genitourinary symptoms and ill-defined conditions (18 sources) Incomplete emptying of bladder; Translations: [Urgent desire to urinate] Onset: 2 06-09-2021 Episodic Headache; including migraine (3 sources) Headache; including migraine; Translations: [HEADACHE UNSPECIFIED] Onset: 3 Inflammatory conditions of male genital organs (4 sources) Golden's gangrene; 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] Onset: 2 08-14-2021 Episodic Mood disorders (20 sources) Depressive disorder; Translations: [Depression] Onset: 2 10-09-2020 Chronic Mood disorders (2 sources) Mood disorders; Translations: [DEPRESSION UNSPECIFIED] Onset: 3 Mycoses (2 sources) Tinea cruris 08-17-2022 Episodic Nutritional deficiencies (4 sources) Deficiency of macronutrients; Translations: [Mild protein-calorie malnutrition] Onset: 2 08-20-2021 Chronic Other aftercare (1 source) Long-term current use of drug therapy; Translations: [Other intermodal dispatcher (current) drug therapy] Onset: 3 Episodic Other aftercare (1 source) Other care home (current) drug therapy; Translations: [OTH HALF-WAY CURRENT DRUG THERAPY] Onset: 3 Episodic Other aftercare (1 source) snf (current) use of insulin; Translations: [HALF-WAY CURRENT USE OF INSULIN] Onset: 3 Episodic Other aftercare (1 source) snf (current) use of oral hypoglycemic drugs; Translations: [HALF-WAY USE ORAL HYPOGLYCEMIC DX] Onset: 3 Episodic Other and unspecified benign neoplasm (2 sources) Benign neoplasm of pituitary gland; Translations: [Benign neoplasm of pituitary gland] Onset: 3 Episodic Other and unspecified benign neoplasm (2 sources) Pituitary adenoma 11-23-2022 Episodic Other circulatory disease (1 source) Low blood pressure; Translations: [Hypotension, unspecified] Onset: 3 Episodic Other connective tissue disease (1 source) Other muscle spasm; Translations: [OTHER MUSCLE SPASM] Onset: 3 Episodic Other diseases of bladder and urethra (3 sources) Overactive bladder 11-02-2019 Chronic Other diseases of veins and lymphatics (9 sources) Varicocele 06-09-2021 Episodic Other ear and sense organ disorders (1 source) Cellulitis of right external ear; Translations: [CELLULITIS OF RIGHT EXTERNAL EAR] Onset: 3 Episodic Other endocrine disorders (9 sources) 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 Other endocrine disorders (9 sources) Male hypogonadism 11-02-2019 Chronic Other endocrine disorders (2 sources) Testicular hypofunction; Translations: [Testicular hypofunction] Onset: 3 Chronic Other gastrointestinal disorders (9 sources) Splenomegaly 11-02-2019 Episodic Other liver diseases (9 sources) Large liver 11-02-2019 Episodic Other lower respiratory disease (1 source) Hypoxemia; Translations: [Hypoxemia] Onset: 3 Episodic Other male genital disorders (9 sources) Impotence 06-09-2021 Chronic Other male genital disorders (1 source) Disorder of male genital organ; Translations: [Other specified disorders of the male genital organs] Onset: 2 Episodic Other male genital disorders (9 sources) Swelling of scrotum 08-13-2021 Episodic Other nutritional; endocrine; and metabolic disorders (8 sources) Morbid obesity; Translations: [Morbid (severe) obesity due to excess calories] Onset: 1 10-09-2020 Chronic Other nutritional; endocrine; and metabolic disorders (1 source) Morbid (severe) obesity due to excess calories; Translations: [MORBID SEVERE OBES D/T EXCESS MATTHEW] Onset: 3 Chronic Other nutritional; endocrine; and metabolic disorders (1 source) Body mass index (BMI) 50.0-59.9, adult; Translations: [BODY MASS INDEX BMI 50.0-59.9 ADULT] Onset: 3 Chronic Pancreatic disorders (not diabetes) (8 sources) Acute pancreatitis; Translations: [Acute pancreatitis without necrosis or infection, unspecified] Onset: 1 10-05-2020 Episodic Residual codes; unclassified (9 sources) Central sleep apnea syndrome 11-02-2019 Chronic Residual codes; unclassified (1 source) Sleep apnea; Translations: [Primary central sleep apnea] Onset: 3 Chronic Residual codes; unclassified (4 sources) Acute pain; Translations: [Pain, unspecified] Onset: 2 08-18-2021 Episodic Residual codes; unclassified (1 source) Procedure and treatment not carried out for other reasons; Translations: [PROC AND TX NOT CARRIED OUT OTH REASONS] Onset: 3 Episodic Screening and history of mental health and substance abuse codes (5 sources) H/O: drug dependency; Translations: [Personal history of nicotine dependence] Onset: 1 08-14-2021 Episodic Skin and subcutaneous tissue infections (6 sources) Cellulitis of head [any part, except face]; Translations: [Cellulitis of face] Onset: 2 Episodic Spondylosis; intervertebral disc disorders; other back problems (10 sources) Degeneration of lumbar intervertebral disc; Translations: [Other intervertebral disc displacement, lumbar region] Onset: 3 11-02-2019 Chronic Spondylosis; intervertebral disc disorders; other back problems (6 sources) Radiculopathy, lumbar region; Translations: [Intervertebral disc disorders with radiculopathy, lumbar region] Onset: 3 Episodic Substance-related disorders (4 sources) Smoker; Translations: [Nicotine dependence, other tobacco product, uncomplicated] Onset: 3 07-11-2022 Chronic Comment on above: Added secondary to d ocumentation in Social History. Syncope (1 source) Syncope and collapse; Translations: [Syncope and collapse] Onset: 3 Episodic Unclassified (1 source) N50.82 - Scrotal pain; Translations: [N50.82 - Scrotal pain] Onset: 2 Unclassified (1 source) N50.89 - Other specified disorders of the male genital organs; Translations: [N50.89 - Other specified disorders of the male genital organs] Onset: 2 Unclassified (1 source) Z30.2 - Encounter for sterilization; Translations: [Z30.2 - Encounter for sterilization] Onset: 2 Unclassified (2 sources) LOW BACK PAIN, UNSPECIFIED; Translations: [LOW BACK PAIN, UNSPECIFIED] Onset: 3 Unclassified (1 source) CONTACT W/AND (SUSP) EXPOS COVID-19; Translations: [CONTACT W/AND (SUSP) EXPOS COVID-19] Onset: 3 Urinary tract infections (1 source) Urinary tract infectious disease; Translations: [Urinary tract infection, site not specified] Onset: 3 Episodic Viral infection (4 sources) Disease caused by 2019-nCoV; Translations: [COVID-19] Onset: 2 08-26-2021 Episodic Past or Other Problems Problem Classification Problem Date Documented Da te Episodic/Chronic Contraceptive and procreative management (4 sources) Contraception status; Translations: [Vasectomy status] Onset: 09-23-2021 06-09-2021 Episodic Immunizations and screening for infectious disease (6 sources) Contact with and (suspected) exposure to other viral communicable diseases; Translations: [Contact with or exposure to other viral diseases] Onset: 01-21-2021 Resolved: 03-24-2021 Episodic Malaise and fatigue (4 sources) Other fatigue; Translations: [OTHER FATIGUE] Onset: 11-13-2021 Episodic Other aftercare (4 sources) Encounter for therapeutic drug level monitoring; Translations: [ENC THERAPEUTC DRUG LEVL MONITORING] Onset: 01-06-2022 Episodic Other aftercare (1 source) snf (current) use of anticoagulants; Translations: [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] Onset: 02-06-2022 Episodic Other liver diseases (3 sources) Liver mass; Translations: [Hepatomegaly, not elsewhere classified] Episodic Other nutritional; endocrine; and metabolic disorders (1 source) Overweight; Translations: [OVERWEIGHT] Onset: 03-19-2022 Episodic Other screening for suspected conditions (not mental disorders or infectious disease) (6 sources) Patient encounter status; Translations: [Encounter for screening for other disorder] Onset: 11-16-2021 Episodic Comment on above: MRSA nasal screen po sitive 07/11/2022 Other upper respiratory infections (1 source) Acute upper respiratory infection, unspecified Onset: 03-24-2021 Resolved: 03-24-2021 Episodic Phlebitis; thrombophlebitis and thromboembolism (1 source) Acute embolism and thrombosis of superficial veins of right upper extremity; Translations: [ACUTE EMBO THROMB SUP VNS RT UP EXT] Onset: 09-04-2021 Episodic Pulmonary heart disease (6 sources) Pulmonary embolism; Translations: [Other pulmonary embolism without acute cor pulmonale] Onset: 08-22-2021 08-22-2021 Episodic Suicide and intentional self-inflicted injury (4 sources) Suicidal ideations; Translations: [SUICIDAL IDEATIONS] Onset: 04-01-2022 Episodic Unclassified (1 source) LOW BACK PAIN, UNSPECIFIED; Translations: [LOW BACK PAIN, UNSPECIFIED] Onset: 06-25-2022 Results Test Name Value Interpretation Reference Range Facility Pre-Certification Formon Pre-Certification Form [id number] .00CD:127 [facility] Lab Reportson 12-04-2022 Lab Reports [id number] .00CD:127 Normal [facility] Ambulatory Visit Summaryon 0 11-23-2022 Ambulatory Visit Summary Normal [facility] Patient Educationon 11-24-19 Patient Education Normal [facility] Urology Office/Clinic Noteon 11-23-2022 Urology Office/Clinic Note Normal [facility] Comment on above: Result Comment: Elec tronically Signed By: Patricio CHAKRABORTY MD\.br\Date and Time Signed: 11/23/22 13:02 EDT\.br\Electronically Co-Signed By: Tara Lee\.br\Date and Time Co-Signed: 11/23/22 13:00 EDT Ambulatory Visit Summaryon 0 08-17-2022 Ambulatory Visit Summary Normal [facility] Patient Educationon 08-18-19 Patient Education [facility] Physician Referralon 023 Physician Referral [id number] .00CD:127 Normal [facility] Urology Office/Clinic Noteon 08-17-2022 Urology Office/Clinic Note [facility] Comment on above: Result Comment: Elec tronically Signed By: Patricio CHAKRABORTY MD\.br\Date and Time Signed: 08/17/22 11:40 EDT\.br\Electronically Co-Signed By: Germaine Mccain\.br\Date and Time Co-Signed: 08/17/22 11:37 EDT C Urineon 07-14-2022 Bacteria identified Cx Nom (U) Normal [facility] Comment on above: Performed By: #### 2 [id number] ####[facility] [address] [place] [address] BMPon 07-13-2022 Anion gap [Moles/Vol] 12 mmol/L Normal 6-16 [facility] Comment on above: Performed By: #### 1 [id number], [id number] ####[facility] [address] [address] Calcium [Mass/Vol] 8.9 mg/dL Normal 8.9-11.1 [facility] Comment on above: Performed By: #### 1 [id number], [id number] ####[facility] [address] [place] [address] Chloride [Moles/Vol] 102 mmol/L Normal 101-111 [facility] Comment on above: Performed By: #### 1 [id number], [id number] ####[facility] [address] [address] CO2 [Moles/Vol] 24 mmol/L Normal 21-31 [facility] Comment on above: Performed By: #### 1 [id number], [id number] ####[facility] [address] [place] [address] Creatinine [Mass/Vol] 0.6 mg/dL Normal 0.5-1.3 [facility] Comment on above: Performed By: #### 1 [id number], [id number] ####[facility] [address] [address] Glucose [Mass/Vol] 259 mg/dL High 55-199 [facility] Comment on above: Result Comment: If t his glucose result represents a fasting glucose, interpretation should refer to the following reference range: 55-99 mg/dL Performed By: #### 1 [id number], [id number] ####[facility] [address] [place] [address] Potassium [Moles/Vol] 3.9 mmol/L Normal 3.5-5.3 [facility] Comment on above: Performed By: #### 1 [id number], [id number] ####[facility] [address] [place] [address] Sodium [Moles/Vol] 134 mmol/L Low 135-145 [facility] Comment on above: Performed By: #### 1 [id number], [id number] ####[facility] [address] [place] [address] Urea nitrogen [Mass/Vol] 14 mg/dL Normal 5-21 [facility] Comment on above: Performed By: #### 1 [id number], [id number] ####[facility] [address] [facility] [place] [address] Urea nitrogen/Creatinine [Mass ratio] 23 No Units High 10-20 [facility] Comment on above: Performed By: #### 1 [id number], [id number] ####[facility] [address] [place] [address] CHEMISTRYOrdered By: Lab ROP User on 07-13-2022 Glucose [Mass/Vol] 292 mg/dL High 55 - 99 mg/dL [facility] POC Subsection Comment on above: Result Comment: Shukri sandoval RN/ POC Device SN [id number] Invalid Interpretation Code [facility] POC Subsection POC User ID [id number] Invalid Interpretation Code [facility] POC Subsection POC Username PALAK HINSON Invalid Interpretation Code [facility] POC Subsection Glucose [Mass/Vol] 238 mg/dL High 55 - 99 mg/dL [facility] POC Subsection Comment on above: Result Comment: Shukri sandoval RN/ POC Device SN [id number] Invalid Interpretation Code [facility] POC Subsection POC User ID [id number] Invalid Interpretation Code [facility] POC Subsection POC Username PALAK HINSON Invalid Interpretation Code [facility] POC Subsection CHEMISTRYOrdered By: SYSTEM SYSTEM on 07-13-2022 Anion gap [Moles/Vol] 12 mmol/L Normal 6 - 16 mEq/L [facility] Remisol Calcium [Mass/Vol] 8.9 mg/dL Normal 8.9 - 11. 1 mg/dL [facility] Remisol Chloride [Moles/Vol] 102 mmol/L Normal 101 - 1 11 mmol/L FT Remisol CO2 [Moles/Vol] 24 mmol/L Normal 21 - 31 mmol/L [facility] Remisol Creatinine [Mass/Vol] 0.6 mg/dL Normal 0.5 - 1.3 mg/dL [facility] Remisol GFR/1.73 sq M.predicted among non-blacks MDRD (S/P/Bld) [Vol rate/Area] 131 mL/min/1.73 m2 Normal >=59mL/min/ 1.73 m2 [facility] Chem S Glucose [Mass/Vol] 259 mg/dL High 55 - 199 mg/dL [facility] Remisol Potassium [Moles/Vol] 3.9 mmol/L Normal 3.5 - 5.3 mmol/L [facility] Remisol Sodium [Moles/Vol] 134 mmol/L Low 135 - 145 mmol/L [facility] Remisol Urea nitrogen [Mass/Vol] 14 mg/dL Normal 5 - 21 mg/dL [facility] Remisol Urea nitrogen/Creatinine [Mass ratio] 23 mg/mg High 10 - 20 [facility] Remisol Capillary Glucose POCon 05-0 Glucose [Mass/Vol] 292 mg/dL High 55-99 [facility] Comment on above: Result Comment: Shukri FRSOT Performed By: #### 2 [id number] ####[facility] [address] [place] [address] Glucose [Mass/Vol] 238 mg/dL High 55-99 [facility] Comment on above: Result Comment: Shukri FROST Performed By: #### 2 [id number] ####[facility] [address] [place] [address] Discharge Instructionson Discharge Instructions [id number]. 00CD:127 Normal [facility] Discharge Note-Nursingon Discharge Note-Nursing Normal [facility] Ferritinon 07-13-2022 Ferritin [Mass/Vol] 126 ng/mL Normal 24-336 [facility] Comment on above: Result Comment: NORM ALS MEN <30 YRS 16-132 ng/mL MEN >30 YRS 8-338 ng/mL WOMEN (PREMEN) 6-104 ng/mL WOMEN (POSTMEN) 12-210 ng/mL Performed By: #### 1 [id number], [id number], [id number], [id number], [id number] ####[facility] [address] [place] [address] Inpatient Clinical Summaryon 07-13-2022 Inpatient Clinical Summary Normal [facility] Inpatient Patient Summaryon 07-13-2022 Inpatient Patient Summary Normal [facility] Inpatient Patient Summary Normal [facility] Interdisciplinary Note - Kane e Manageron 07-13-2022 Interdisciplinary Note - Anatomic Pathology Assistant Normal [facility] Comment on above: Result Comment: Elec tronically Signed By: Quang CEDILLO, Evie\.br\Date and Time Signed: 07/13/22 11:37 EDT Patient Education - Texton 0 07-13-2022 Patient Education - Text Normal [facility] eGFRon 07-13-2022 GFR/1.73 sq M.predicted among non-blacks MDRD (S/P/Bld) [Vol rate/Area] 131 mL/min/1.73 m2 Normal >=59 [facility] Comment on above: Order Comment: Order added by Discern Expert. Result Comment: Casting Room Helper julián kidney disease could be indicated at eGFR's of less than 60 mL/min/1.73m2. Kidney failure is indicated at less than 15 mL/min/1.73m2. Performed By: #### 1 [id number], [id number] ####[facility] [address] [place] [address] BNPon 07-12-2022 Natriuretic peptide B (Bld) [Mass/Vol] pg/mL Normal 5-80 [facility] Comment on above: Performed By: #### 1 [id number] ####[facility] [address] [place] [address] CHEMISTRYOrdered By: Lab ROP User on 07-12-2022 Glucose [Mass/Vol] 284 mg/dL High 55 - 99 mg/dL [facility] POC Subsection Comment on above: Result Comment: Pamela fleming Meter POC Device SN [id number] Invalid Interpretation Code [facility] POC Subsection POC User ID [id number] Invalid Interpretation Code [facility] POC Subsection POC Username ARGELIA SHARIF Invalid Interpretation Code [facility] POC Subsection CHEMISTRYOrdered By: Cass Ryan on 07-12-2022 Natriuretic peptide B (Bld) [Mass/Vol] pg/mL Normal 5 - 80 pg/mL [facility] HemeManSS CHEMISTRYOrdered By: SYSTEM SYSTEM on 07-12-2022 CRP [Mass/Vol] 6.3 mg/dL High <=1.9mg/dL FT Remis ol Ferritin [Mass/Vol] 126 ng/mL Normal 24 - 336 ng/mL FT Remisol LDH [Catalytic activity/Vol] 160 [iU]/d Normal 93 - 218 Int._Unit/L FT Remisol Procalcitonin 0.10 ng/mL Normal 0.00 - 0.50 ng/mL [facility] Remisol Troponin I.cardiac [Mass/Vol] pg/mL Low 15.90 - 38.40 pg/mL [facility] Remisol COVID-19 ([facility])on 07-12-2022 Performing Instrument FT Waqas 2 Normal Fis [facility] Comment on above: Performed By: #### 2 [id number] ####[facility] [address] [place] [address] SARS-CoV-2 (COVID-19) RNA ECTOR+probe Ql (Resp) Not detected Normal Not Detected [facility] Comment on above: Result Comment: This test result should be correlated with clinical presentations and medical history by a healthcare provider to determine its clinical significance.This assay was performed by a reverse transcriptase real-time polymerase chain reaction (rt PCR) method on the [employer] system. This test has been authorized only for the detection of nucleic acid from SARS-CoV-2, not for any other viruses or pathogens. This test has not been FDA cleared or approved. This test has been authorized by FDA under an Emergency Use Authorization (EUA). This test is only authorized for the duration of time the declaration on that circumstances exist justifying the authorization emergency use of in vitro diagnostic tests for detection and/or diagnosis of COVID-19 infection under section 564 (b) (1) of the Act, 21 U.S.C. 360 bbb-3 (b) (1), unless authorization is terminated or revoked sooner. Performed By: #### 2 [id number] ####[place] [address] SARS-CoV-2 (COVID-19) RNA ECTOR+probe Ql (Unsp spec) Pass Normal Pass [facility] Comment on above: Performed By: #### 2 [id number] ####[place] [address] Specimen source Nom (Unsp spec) Nasal Normal [facility] Comment on above: Performed By: #### 2 [id number] ####[place] [address] ADMITTED TO INTENSIVE CARE UNIT FOR CONDITION OF INTEREST:FIND:PT: NO Normal [facility] Comment on above: Performed By: #### 2 [id number] ####[place] [address] EMPLOYED IN A HEALTHCARE SETTING:FIND:PT: NO Normal [facility] Comment on above: Performed By: #### 2 [id number] ####[place] [address] FIRST TEST FOR CONDITION OF INTEREST:FIND:PT: Unknown Normal [facility] Comment on above: Performed By: #### 2 [id number] ####[place] [address] HAS SYMPTOMS RELATED TO CONDITION OF INTEREST:FIND:PT: Unknown Normal [facility] Comment on above: Performed By: #### 2 [id number] ####[place] [address] HOSPITALIZED FOR CONDITION OF INTEREST:FIND:PT: YES Normal [facility] Comment on above: Performed By: #### 2 [id number] ####[place] [address] STATUS:FIND:PT: NO Normal [facility] Comment on above: Performed By: #### 2 [id number] ####[facility] [address] [place] [address] RESIDES IN A [facility] SETTING:FIND:PT: NO Normal [facility] Comment on above: Performed By: #### 2 [id number] ####[facility] [address] [place] [address] CRPon 07-12-2022 CRP [Mass/Vol] 6.3 mg/dL High <=1.9 [facility] Comment on above: Performed By: #### 1 [id number], [id number], [id number], [id number], [id number] ####[facility] [address] [place] [address] CT Head or Brain w/o Contras ton 07-12-2022 CT Head or Brain w/o Contrast Normal [facility] CT Spine Cervical w/o Contra ston 07-12-2022 CT Spine Cervical w/o Contrast Normal [facility] CTA Cheston 07-12-2022 CTA Chest Normal [facility] Capillary Glucose POCon Glucose [Mass/Vol] 284 mg/dL High 55-99 [facility] Comment on above: Result Comment: Pamela fleming Meter Performed By: #### 2 [id number] ####[facility] [address] [place] [address] Glucose [Mass/Vol] 378 mg/dL High -99 [facility] Comment on above: Performed By: #### 2 [id number] ####[facility] [address] [place] [address] Glucose [Mass/Vol] 296 mg/dL High 55-99 [facility] Comment on above: Performed By: #### 2 [id number] ####[facility] [address] [place] [address] Glucose [Mass/Vol] 324 mg/dL High 55-99 [facility] Comment on above: Result Comment: Shukri sandoval RN/ Performed By: #### 2 [id number] ####[facility] [address] [place] [address] Glucose [Mass/Vol] 409 mg/dL High 55-99 [facility] Comment on above: Result Comment: Shukri sandoval RN/ Performed By: #### 2 [id number] ####[facility] [address] [place] [address] Consent for Treatmenton 05 Consent for Treatment [id number] .00CD:127 Normal [facility] ED Clinical Summaryon 2022 ED Clinical Summary Normal [facility] ED Note-Physicianon 07-13-19 ED Note-Physician Normal [facility] Comment on above: Result Comment: Elec tronically Signed By: Marietta Guerrero DObr\Date and Time Signed: 07/12/22 01:02 EDT ED Patient Education Noteon 07-12-2022 ED Patient Education Note Normal [facility] ED Patient Summaryon 023 ED Patient Summary Normal [facility] EMS Documentationon 07-13-19 EMS Documentation Normal [facility] EMS Documentation Normal [facility] Influenza A&B Agon Influenzae A Ag Negative Normal Negative [facility] Comment on above: Performed By: #### 1 [id number], [id number] ####[facility] [address] [place] [address] Influenzae B Ag Negative Normal Negative [facility] Comment on above: Result Comment: Test sensitivity and specificity vary for age group, specimen type, antigen types, and prevalence of disease. Test results must be evaluated in conjunction with other clinical data available to the physician. Individuals who received nasally administered Influenza A vaccine may have positive test results up to 3 days after vaccination. Performed By: #### 1 [id number], [id number] ####[facility] [address] [place] [address] Insurance Correspondence Off ice07-12-2022 Insurance Correspondence Office [id number] 1.00CD:127 Normal [facility] Interdisciplinary Note - Kane e Manageron 07-12-2022 Interdisciplinary Note - Anatomic Pathology Assistant Normal [facility] Comment on above: Result Comment: Elec tronically Signed By: Cass Loera.hilda\Date and Time Signed: 07/12/22 12:26 EDT LDHon 07-12-2022 LDH [Catalytic activity/Vol] 160 Int._Unit/L Normal 93-218 [facility] Comment on above: Performed By: #### 1 [id number], [id number], [id number], [id number], [id number] ####[facility] [address] [place] [address] Monitor Recordon 07-12-2022 Monitor Record [id number]# 1.00CD:127 Normal [facility] Monitor Record [id number]# 1.00CD:127 Normal [facility] Monitor Record [id number]# 1.00CD:127 Normal [facility] Procalcitoninon 07-12-2022 Procalcitonin .10 ng/mL Normal .00-.50 [facility] Comment on above: Result Comment: <0.5 ng/mL Low risk of severe sepsis and/or shock>2.0 ng/mL High risk of severe sepsis and/or shockConcentrations under 0.5 ng/mL do not exclude local infections or systemic infections in their initial stages (e.g.. under six hours from onset of illness). PCT concentrations between 0.5 and 2.0 ng/mL should be interpreted with consideration of the patient's history. In this range, it is recommended to retest PCT within 6 to 24 hours. Performed By: #### 1 [id number], 0700086, 3676671, 7807433, [id number] ####[facility] [address] [place] [address] RAD - Preliminary Cat Scan R eporton 07-12-2022 RAD - Preliminary Cat Scan Report [id number] .00CD:127 Normal [facility] Rapid COVID Antigen ([facility])on 07-12-2022 Rapid COV Int NEG Ctl Pass Normal [facility] Comment on above: Performed By: #### 1 [id number], [id number] ####[facility] [address] [place] [address] Rapid COV Int POS Ctl Pass Normal [facility] Comment on above: Performed By: #### 1 0856278, [id number] ####[facility] [address] [place] [address] SARS-CoV+SARS-CoV-2 (COVID-19) Ag IA.rapid Ql (Resp) Not detected Normal Not Detected [facility] Comment on above: Result Comment: The [employer]? System for Rapid Detection of SARS-CoV-2 is a chromatographic digital immunoassay intended for the direct and qualitative detection of SARS-CoV-2 nucleocapsid antigens in nasal swabs from individuals who are suspected of COVID-19 by their healthcare provider within the first five days of the onset of symptoms. Negative results should be treated as presumptive, do not rule out SARS-CoV-2 infection and should not be used as the sole basis for treatment or patient management decisions, including infection control decisions. Negative results should be considered in the context of a patient?s recent exposures, history and the presence of clinical signs and symptoms consistent with COVID-19, and confirmed with a molecular assay, if necessary, for patient management. For in vitro diagnostic use. In the [place], only for use under an Emergency Use Authorization. In the [place], this test has not been FDA cleared or approved; this test has been authorized by FDA under an EUA for use by authorized laboratories; use by laboratories certified under the CLIA, 42 U.S.C. ?263a, that meet requirements to perform moderate, high, or waived complexity tests and at the Point of Care (POC), i.e., in patient care settings operating under a CLIA Certificate of Waiver, Certificate of Compliance, or Certificate of Accreditation.This test has been authorized only for the detection of proteins from SARS-CoV-2, not for any other viruses or pathogens; and, in the [place], this test is only authorized for the duration of the declaration that circumstances exist justifying the authorization of emergency use of in vitro diagnostics for detection and/or diagnosis of the virus that causes COVID-19 under Section 564(b)(1) of the Act, 21 U.S.C. ? 360bbb-3(b)(1), unless the authorization is terminated or revoked sooner. Performed By: #### 1 [id number], [id number] ####[facility] [address] [place] [address] Troponin 3 Hr.on 07-12-2022 Troponin I.cardiac [Mass/Vol] 2.30 pg/mL Low 15.90-38.40 [facility] Comment on above: Result Comment: The 95% CI (Confidence Interval) PPV (Positive Predictive Value) for myocardial infarction in females is 38 pg/mL, in males 51 pg/mL. The results should be used in conjunction with clinical conditions of myocardial infarction.(Access High Sensitivity Troponin I Instructions For Use, [employer], October 2017) Performed By: #### 1 [id number] ####[facility] [address] [place] [address] Troponin 6 Hr.on 07-12-2022 Troponin I.cardiac [Mass/Vol] ng/mL Low 15.90-38.40 [facility] Comment on above: Result Comment: The 95% CI (Confidence Interval) PPV (Positive Predictive Value) for myocardial infarction in females is 38 pg/mL, in males 51 pg/mL. The results should be used in conjunction with clinical conditions of myocardial infarction.(MadeClose High Sensitivity Troponin I Instructions For Use, [employer], October 2017) Performed By: #### 1 [id number], 6492848, 4286309, 2138848, [id number] ####[address] [place] [address] UA With Cult Reflexon 2022 Bacteria LM Ql (Urine sed) 1+ /HPF Abnormal Trace [facility] Comment on above: Performed By: #### 2 992128, [id number] ####[facility] [address] [place] [address] Bilirubin Ql (U) Negative Normal Negative [facility] Comment on above: Performed By: #### 2 093774, [id number] ####[facility] [address] [place] [address] Clarity (U) CLEAR Normal Clear [facility] Comment on above: Performed By: #### 2 731876, [id number] ####[facility] [address] [place] [address] Color (U) YELLOW Normal Yellow [facility] Comment on above: Performed By: #### 2 214098, [id number] ####[facility] [address] [place] [address] Epithelial cells.squamous LM.HPF (Urine sed) [#/Area] 3-4 Normal 0-2 [facility] Comment on above: Performed By: #### 2 400976, [id number] ####[facility] [address] [place] [address] Glucose Test strip (U) [Mass/Vol] 2+ Abnormal Negative [facility] Comment on above: Performed By: #### 2 368462, [id number] ####[facility] [address] [place] [address] Hemoglobin Ql (U) TRACE Abnormal Negative [facility] Comment on above: Performed By: #### 2 740331, 25159527 ####[facility] [address] [place] [address] Ketones (U) [Mass/Vol] Negative Normal Negative [facility] Comment on above: Performed By: #### 2 764249, [id number] ####[facility] [address] [place] [address] Callahan.plasma/Callahan. RBC (Bld) [Mass ratio] 4-20 Normal 0-3 [facility] Comment on above: Performed By: #### 2 721511, [id number] ####[facility] [address] [place] [address] Mucus Ql (Urine sed) 1+ Normal Fish [facility] Comment on above: Performed By: #### 2 602251, [id number] ####[facility] [address] [place] [address] Nitrite Ql (U) Positive Abnormal Negative [facility] Comment on above: Performed By: #### 2 480136, [id number] ####[address] [address] pH (U) 6.0 [pH] Invalid Interpretation Code 5.0-9.0 [facility] Comment on above: Performed By: #### 2 126793, 71875079 ####[address] [address] Protein (U) [Mass/Vol] 2+ Abnormal Negative [facility] Comment on above: Performed By: #### 2 704926, 85902282 ####[address] [address] Specific gravity (U) [Rel density] 1.020 Invalid Interpretation Code 1.005-1.030 [facility] Comment on above: Performed By: #### 2 879066, [id number] ####[address] [address] Type of Urine collection method Clean Catch Normal [facility] Comment on above: Performed By: #### 2 919635, 70884331 ####[address] [address] Urobilinogen Qn (U) 0.2 {Chintan'U}/dL Normal 0.0-1.0 [facility] Comment on above: Performed By: #### 2 351621, 87126648 ####[address] [address] WBC Auto Ql (U) Negative Normal Negative [facility] Comment on above: Performed By: #### 2 605282, 03091003 ####[address] [address] WBC LM.HPF (Urine sed) [#/Area] 6-15 Abnormal 0-5 [facility] Comment on above: Performed By: #### 2 719575, [id number] ####Angela [facility] [address] [place] [address] XR Chest Single Viewon 07-12 XR Chest Single View Normal Fish er [facility] Auto Diffon 07-11-2022 Basophils/100 WBC (Bld) 0.2 % Normal 0.0-2.[address] [facility] Comment on above: Order Comment: Order Added by Discern Expert. Performed By: #### 2 298999, 41862706, 8017933, 6609757, 0221366, 0172261, 78662796, 0970788, 1049375, 25845733 ####Angela [facility] [address] [place] [address] Basophils/Leukocytes Auto (Bld) [Pure # fraction] 0.0 E9/L Normal 0.0-0.2 [facility] Comment on above: Order Comment: Order Added by Discern Expert. Performed By: #### 2 681618, 68369532, 5579483, 0297115, 1147174, 8013257, 02821921, 4962788, 9948259, 24695332 ####Angela [facility] [address] [place] [address] Eosinophils/100 WBC (Bld) 0.3 % Normal 0.0-8.0 [facility] Comment on above: Order Comment: Order Added by Discern Expert. Performed By: #### 2 943233, 41429173, 6641433, 9295435, 3032323, 3682655, 32543687, 7747491, 6644839, 05455355 ####[facility] [address] [place] [address] Eosinophils/Leukocytes Auto (Bld) [Pure # fraction] 0.0 E9/L Normal 0.0-0.5 [facility] Comment on above: Order Comment: Order Added by Discern Expert. Performed By: #### 2 950720, 17924514, 4884030, 6727504, 6966407, 9976556, 62407995, 2036614, 5654936, 71867280 ####[address] [place] [address] Lymphocytes/100 WBC (Bld) 15.1 % Normal 14.0-50.0 [facility] Comment on above: Order Comment: Order Added by Discern Expert. Performed By: #### 2 182565, 60152651, 4467197, 6362792, 3635906, 8365282, 39040570, 2212545, 6640625, 79419741 ####[address] [place] [address] Lymphocytes/Leukocytes Auto (Bld) [Pure # fraction] 1.0 E9/L Normal 1.0-4.0 [facility] Comment on above: Order Comment: Order Added by Discern Expert. Performed By: #### 2 893606, 75358883, 8417331, 1536453, 4075787, 7306215, 93771672, 9396245, 6775320, 28692460 ####[address] [address] Monocytes/100 WBC (Bld) 8.3 % Normal 4.0-14.0 [facility] Comment on above: Order Comment: Order Added by Discern Expert. Performed By: #### 2 973253, 14039625, 4162821, 8415408, 4135778, 7015402, 68075798, 1972471, 9250133, 11486348 ####[address] [place] [address] Monocytes/Leukocytes Auto (Bld) [Pure # fraction] 0.6 E9/L Normal 0.2-1.0 [facility] Comment on above: Order Comment: Order Added by Discern Expert. Performed By: #### 2 221626, 79833390, 1790504, 0670268, 3413551, 2789555, 89765589, 3291424, 9426702, 07554950 ####[address] [place] [address] Neutrophils/100 WBC (Bld) 76.1 % High 36.0-75.0 [facility] Comment on above: Order Comment: Order Added by Discern Expert. Performed By: #### 2 444423, 93964051, 4122760, 1900844, 0045280, 6410417, 21046572, 1798703, 8398655, 96993259 ####[facility] [address] [place] [address] Neutrophils/Leukocytes Auto (Bld) [Pure # fraction] 5.2 E9/L Normal 2.0-7.5 [facility] Comment on above: Order Comment: Order Added by Discern Expert. Performed By: #### 2 289565, 91341713, 2450771, 2453765, 0889167, 3100752, 94496319, 3424114, 7303944, 40530490 ####[facility] [address] [place] [address] BMPon 07-11-2022 Creatinine [Mass/Vol] 1.1 mg/dL Normal 0.5-1.3 [facility] Comment on above: Performed By: #### 2 152670, 07756105, 6143213, 9091543, 1467076, 1416519, 85409279, 1928029, 9453647, 01384130 ####[facility] [address] [place] [address] Urea nitrogen [Mass/Vol] 11 mg/dL Normal 5-21 [facility] Comment on above: Performed By: #### 2 506502, 28065722, 1452966, 0618021, 2953579, 4054384, 73085782, 4030916, 4708014, 12641985 ####[facility] [address] [place] [address] Urea nitrogen/Creatinine [Mass ratio] 10 No Units Normal 10-20 [facility] Comment on above: Performed By: #### 2 515957, 58438903, 3116030, 8667992, 3550512, 9089769, 00105255, 2806951, 0856784, 54394998 ####[facility] [address] [place] [address] Anion gap [Moles/Vol] 16 mmol/L Normal 6-16 [facility] Comment on above: Performed By: #### 2 181107, 54836350, 9113978, 5486197, 9882862, 5506823, 23493905, 3164189, 4162433, 12499818 ####[facility] [address] [place] [address] Calcium [Mass/Vol] 8.9 mg/dL Normal 8.9-11.1 [facility] Comment on above: Performed By: #### 2 195424, 75207766, 1438928, 2737536, 0768932, 1315581, 81639899, 5128968, 8647635, 93369784 ####[facility] [address] [place] [address] Chloride [Moles/Vol] 98 mmol/L Low 101-111 Fish [facility] Comment on above: Performed By: #### 2 852574, 15221675, 3551754, 7213785, 6007623, 2467805, 19818626, 8219238, 0045731, 26297234 ####[facility] [address] [place] [address] CO2 [Moles/Vol] 24 mmol/L Normal 21-31 [facility] Comment on above: Performed By: #### 2 849765, 38623795, 8296238, 5807928, 6465279, 9218924, 93571882, 2605527, 3586718, 13476482 ####[facility] [address] [place] [address] Glucose [Mass/Vol] 309 mg/dL High 55-199 [facility] Comment on above: Result Comment: If t his glucose result represents a fasting glucose, interpretation should refer to the following reference range: 55-99 mg/dL Performed By: #### 2 884075, 34518644, 3807435, 2939930, 2468247, 9785661, 63246333, 6157948, 7886218, 01677496 ####[facility] [address] [place] [address] Potassium [Moles/Vol] 4.7 mmol/L Normal 3.5-5.3 [facility] Comment on above: Performed By: #### 2 496873, 90486672, 3464231, 3288716, 9205193, 3128589, 32285047, 8515467, 8633684, 01003841 ####[facility] [address] [place] [address] Sodium [Moles/Vol] 133 mmol/L Low 135-145 [facility] Comment on above: Performed By: #### 2 497971, 48091141, 1495846, 7832184, 5720087, 7168736, 26265545, 5926291, 0361775, 18753125 ####[address] [place] [address] CBC w/ Auto Diffon 3 Erythrocyte distribution width (RBC) [Ratio] 14.5 % High 10.9-14.2 [facility] Comment on above: Performed By: #### 2 363636, 74118404, 4675438, 3519458, 1463295, 7104039, 01299392, 1183944, 1930902, 62298819 ####[address] [place] [address] Hematocrit (Bld) [Volume fraction] 44.2 % Normal 37.7-49.0 [facility] Comment on above: Performed By: #### 2 932967, 27403500, 7218418, 1328196, 1924382, 4130129, 09627144, 6935123, 4335003, 02684018 ####[address] [place] [address] Hemoglobin (Bld) [Mass/Vol] 15.0 g/dL Normal 13.5-17.5 [facility] Comment on above: Performed By: #### 2 843684, 83299008, 4863796, 1103773, 5860935, 1352948, 10628257, 9222474, 3377430, 76104153 ####[facility] [address] [place] [address] MCH (RBC) [Entitic mass] 31.8 pg Normal 27.0-34.0 [facility] Comment on above: Performed By: #### 2 213925, 95062440, 6137557, 2358112, 1304284, 3773015, 18937614, 4019362, 4197306, 12992452 ####[address] [place] [address] MCHC (RBC) [Mass/Vol] 34.0 g/dL Normal 31.4-36.0 [facility] Comment on above: Performed By: #### 2 252458, 62562254, 4798976, 2139559, 3267816, 5898642, 78620476, 3460493, 5832984, 76914585 ####[address] [address] MCV (RBC) [Entitic vol] 93.3 fL Normal 80.0-100.[address] [facility] Comment on above: Performed By: #### 2 620278, 69003528, 4186629, 1856517, 7391735, 3198511, 80114073, 5368681, 4420721, 27839921 ####[facility] [address] [place] [address] Platelet mean volume (Bld) [Entitic vol] 9.4 fL Normal 6.4-10.8 [facility] Comment on above: Performed By: #### 2 826707, 17177715, 3474541, 2308909, 8327712, 6338283, 86366898, 6973578, 4762701, 30000754 ####[address] [place] [address] Platelets (Bld) [#/Vol] 191.0 E9/L Normal 150.0-500.0 [facility] Comment on above: Performed By: #### 2 682371, 17578947, 3138412, 8147867, 5839035, 2510048, 03136697, 2337743, 6049016, 78681985 ####[facility] [address] [place] [address] RBC (Bld) [#/Vol] 4.7 E12/L Normal 4.3-5.9 [facility] Comment on above: Performed By: #### 2 237976, 12213844, 5145862, 4184619, 2822051, 6997285, 18145442, 0314291, 2107543, 92220520 ####[facility] [address] [place] [address] WBC corrected for nucl RBC Auto (Bld) [#/Vol] 6.8 E9/L Normal 4.0-11.0 [facility] Comment on above: Performed By: #### 2 611707, 98420640, 0484367, 4640813, 7954953, 7525897, 04206264, 1523620, 1419341, 39260163 ####[facility] [address] [place] [address] CHEMISTRYOrdered By: SYSTEM SYSTEM on 07-11-2022 Troponin I.cardiac [Mass/Vol] 2.30 pg/mL Low 15.90 - 38.40 pg/mL [facility] Remisol Albumin [Mass/Vol] 3.8 g/dL Normal 3.3 - 5.0 gm/dL [facility] Remisol Albumin/Globulin [Mass ratio] 1.0 {ratio} Low 1.1 - 2.2 [facility] Remisol ALP [Catalytic activity/Vol] 92 [iU]/d Normal 21 - 98 Int._Unit/L [facility] Remisol ALT No additional P-5'-P [Catalytic activity/Vol] 37 [iU]/d Normal 6 - 46 Int._Unit/L [facility] Remisol Anion gap [Moles/Vol] 16 mmol/L Normal 6 - 16 mEq/L [facility] Remisol AST [Catalytic activity/Vol] 28 [iU]/d Normal 5 - 43 Int._Unit/L [facility] Remisol Bilirubin [Mass/Vol] 1.2 mg/dL High 0.0 - 1 .1 mg/dL [facility] Remisol Bilirubin.direct [Mass/Vol] 0.2 mg/dL Normal 0.1 - 0.4 mg/dL [facility] Remisol Bilirubin.indirect [Mass or moles/Vol] 1.0 mg/dL High 0.1 - 0.9 mg/dL [facility] Remisol Calcium [Mass/Vol] 8.9 mg/dL Normal 8.9 - 11. 1 mg/dL [facility] Remisol Chloride [Moles/Vol] 98 mmol/L Low 101 - 1 11 mmol/L [facility] Remisol CO2 [Moles/Vol] 24 mmol/L Normal 21 - 31 mmol/L [facility] Remisol Creatinine [Mass/Vol] 1.1 mg/dL Normal 0.5 - 1.3 mg/dL [facility] Remisol GFR/1.73 sq M.predicted among non-blacks MDRD (S/P/Bld) [Vol rate/Area] 91 mL/min/1.73 m2 Normal >=59mL/min/ 1.73 m2 FT Chem S Globulin (S) [Mass/Vol] 3.7 g/dL Normal 1.4 - 4.0 gm/dL [facility] Remisol Glucose [Mass/Vol] 309 mg/dL High 55 - 199 mg/dL [facility] Remisol Magnesium [Mass/Vol] 1.4 mg/dL Normal 1.3 - 2 .4 mg/dL [facility] Remisol Potassium [Moles/Vol] 4.7 mmol/L Normal 3.5 - 5.3 mmol/L [facility] Remisol Protein [Mass/Vol] 7.5 g/dL Normal 6.0 - 7.8 gm/dL [facility] Remisol Sodium [Moles/Vol] 133 mmol/L Low 135 - 145 mmol/L [facility] Remisol Troponin I.cardiac [Mass/Vol] 4.40 pg/mL Low 15.90 - 38.40 pg/mL [facility] Remisol Urea nitrogen [Mass/Vol] 11 mg/dL Normal 5 - 21 mg/dL [facility] Remisol Urea nitrogen/Creatinine [Mass ratio] 10 mg/mg Normal 10 - 20 [facility] Remisol COAGULATIONOrdered By: Aura Qiu on 07-11-2022 aPTT Coag (PPP) [Time] 30.5 s Normal 25.1 - 36.5 second(s) [facility] Auto Coag Fibrin D-dimer FEU (PPP) [Mass/Vol] 1690 ng/mL FEU Invalid Interpretation Code 215 - 500 ng/mL FEU [facility] Auto Coag Comment on above: Result Comment: Resu lts Called To er dr guerrero By ts And Read Back For Confirmation On 07/11/2022 20:41:56 EDT Results Verified By Repeat Analysis INR Coag (PPP) [Relative time] 1.1 {INR} Invalid Interpretation Code [facility] Auto Coag PT Coag (PPP) [Time] 12.0 s Normal 9.4 - 1 2.5 second(s) [facility] Auto Coag Capillary Glucose POCon Glucose [Mass/Vol] 317 mg/dL High 55-99 [facility] Comment on above: Result Comment: Shukri sandoval RN/ Performed By: #### 2 [id number] ####[facility] [address] [id number] D-Dimeron 07-11-2022 Fibrin D-dimer FEU (PPP) [Mass/Vol] 1690 [id number] Abnormal 215-500 [facility] Comment on above: Result Comment: Resu lts Called To er dr guerrero By ts And Read Back For Confirmation On 07/11/2022 20:41:56 EDTResults Verified By Repeat AnalysisThis assay is intended for use as an aid in the diagnosis of DVT or PE. These conditions cannot be excluded with certainty solely on the basis of a D-dimer concentration being within the reference rangeThis D-Dimer assay may be used in conjunction with a non-high clinical pretest probability assessment to exclude deep-vein thrombosis(DVT). For exclusion of venous thrombosis or pulmonary embolism the analyte D-Dimer should not be used as an aid in patients with:Therapeutic dose anticoagulant therapy for >24 hoursFibrinolytic therapy within previous 7 daysTrauma or surgery within previous 4 weeksDisseminated malignaciesAortic aneurysmSepsis, severe infections, pneumonia, severe skin infectionsLiver cirrhosisPregnancy Performed By: #### 2 786664, [id number], [id number], 1565062, 2754020, 3693336, [id number], 6719133, 3581323, [id number] ####Julio César [facility] [address] [place] [address] ED Note-Nursingon 07-11-2022 ED Note-Nursing Normal [facility] HEMATOLOGYOrdered By: SYSTEM SYSTEM on 07-11-2022 Basophils/100 WBC (Bld) 0.2 % Normal 0.0 - 2.0 % [facility] HemeAutoSS Basophils/Leukocytes Auto (Bld) [Pure # fraction] 0.0 E9/L Normal 0.0 - 0.2 E9/L [facility] HemeAutoSS Eosinophils/100 WBC (Bld) 0.3 % Normal 0.0 - 8.0 % [facility] HemeAutoSS Eosinophils/Leukocytes Auto (Bld) [Pure # fraction] 0.0 E9/L Normal 0.0 - 0.5 E9/L [facility] HemeAutoSS Lymphocytes/100 WBC (Bld) 15.1 % Normal 14.0 - 50.0 % [facility] HemeAutoSS Lymphocytes/Leukocytes Auto (Bld) [Pure # fraction] 1.0 E9/L Normal 1.0 - 4.0 E9/L [facility] HemeAutoSS Monocytes/100 WBC (Bld) 8.3 % Normal 4.0 - 14.0 % [facility] HemeAutoSS Monocytes/Leukocytes Auto (Bld) [Pure # fraction] 0.6 E9/L Normal 0.2 - 1.0 E9/L [facility] HemeAutoSS Neutrophils/100 WBC (Bld) 76.1 % High 36.0 - 75.0 % [facility] HemeAutoSS Neutrophils/Leukocytes Auto (Bld) [Pure # fraction] 5.2 E9/L Normal 2.0 - 7.5 E9/L [facility] HemeAutoSS HEMATOLOGYOrdered By: Cortez Doyle on 07-11-2022 Erythrocyte distribution width (RBC) [Ratio] 14.5 % High 10.9 - 14.2 % [facility] HemeAutoSS Hematocrit (Bld) [Volume fraction] 44.2 % Normal 37.7 - 49.0 % [facility] HemeAutoSS Hemoglobin (Bld) [Mass/Vol] 15.0 g/dL Normal 13.5 - 17.5 gm/dL [facility] HemeAutoSS MCH (RBC) [Entitic mass] 31.8 pg Normal 27.0 - 34.0 pg [facility] HemeAutoSS MCHC (RBC) [Mass/Vol] 34.0 g/dL Normal 31.4 - 36.0 gm/dL [facility] HemeAutoSS MCV (RBC) [Entitic vol] 93.3 fL Normal 80.0 - 100.0 fL [facility] HemeAutoSS Platelet mean volume (Bld) [Entitic vol] 9.4 fL Normal 6.4 - 10.8 fL [facility] HemeAutoSS Platelets (Bld) [#/Vol] 191.0 E9/L Normal 150. 0 - 500.0 E9/L [facility] HemeAutoSS RBC (Bld) [#/Vol] 4.7 E12/L Normal 4.3 - 5.9 E12/L [facility] HemeAutoSS WBC corrected for nucl RBC Auto (Bld) [#/Vol] 6.8 E9/L Normal 4.0 - 11.0 E9/L [facility] HemeAutoSS Hep Func Panelon 07-11-2022 Albumin [Mass/Vol] 3.8 g/dL Normal 3.3-5.0 [facility] Comment on above: Performed By: #### 2 105166, 25348692, 5595087, 5691270, 8107599, 8237955, 83170903, 7806292, 2315973, 31515855 ####[facility] [address] [place] [address] Albumin/Globulin (S) [Mass conc ratio] 1.0 Low 1.1-2.2 [facility] Comment on above: Performed By: #### 2 031025, 23838105, 1061083, 4020241, 3557056, 4065031, 50329859, 3302117, 2476090, 36619817 ####[facility] [address] [place] [address] ALP [Catalytic activity/Vol] 92 Int._Unit/L Normal 21-98 [facility] Comment on above: Performed By: #### 2 621671, 94674448, 1549258, 5802674, 0758206, 7356931, 06803346, 9367644, 2271150, 16546568 ####[facility] [address] [place] [address] ALT No additional P-5'-P [Catalytic activity/Vol] 37 Int._Unit/L Normal 6-46 [facility] Comment on above: Performed By: #### 2 095473, 70949473, 9641642, 9173511, 0501085, 6865079, 15375692, 6284845, 8542804, 14431750 ####[address] [address] AST [Catalytic activity/Vol] 28 Int._Unit/L Normal 5-43 [facility] Comment on above: Performed By: #### 2 748712, 46150198, 5984227, 9696506, 2805807, 1189543, 30379753, 4030149, 0024056, 92893911 ####[address] [address] Bilirubin [Mass/Vol] 1.2 mg/dL High 0.0-1.1 [facility] Comment on above: Performed By: #### 2 248504, 05690066, 9412384, 7059012, 4211987, 8494510, 86081726, 4383343, 2461829, 03102707 ####[address] [place] [address] Bilirubin.direct [Mass/Vol] 0.2 mg/dL Normal 0.1-0.4 [facility] Comment on above: Performed By: #### 2 208685, 87732445, 6166702, 2390405, 9091617, 9228231, 94148924, 4402454, 7375921, 18788249 ####[facility] [address] [place] [address] Bilirubin.indirect [Mass or moles/Vol] 1.0 mg/dL High 0.1-0.9 [facility] Comment on above: Performed By: #### 2 704559, 22727064, 5024694, 6346412, 2692199, 7792772, 86707947, 4378447, 6383274, 00084764 ####[facility] [address] [place] [address] Globulin (S) [Mass/Vol] 3.7 g/dL Normal 1.4-4.[address] [facility] Comment on above: Performed By: #### 2 377384, 32255470, 4935558, 8680035, 2591699, 8995028, 07121195, 4686322, 7615471, 43668899 ####[facility] [address] [place] [address] Protein [Mass/Vol] 7.5 g/dL Normal 6.0-7.8 [facility] Comment on above: Performed By: #### 2 648055, 06308780, 9547790, 9813812, 4872616, 2994872, 91698312, 5453166, 9818000, 46112590 ####[facility] [address] [place] [address] Laboratory - Microbiology an d Antimicrobial susceptibilityOrdered By: Lupe Barnard on 07-11-2022 Bacteria identified Cx Nom (U) >100,000 cfu/ml Staphylococcus species Coagulase Positive [facility] MICRO OTHER TESTSOrdered By: Mariana Doyle on 07-11-2022 Influenzae A Ag Negative (07/11/22 10:22 PM) Normal Negative [facility] Man Sero Influenzae B Ag Negative (07/11/22 10:22 PM) Normal Negative [facility] Man Sero Rapid COV Int NEG Ctl Pass (07/11/22 10:22 PM) Normal [facility] Man Sero Rapid COV Int POS Ctl Pass (07/11/22 10:22 PM) Normal [facility] Man Sero SARS-CoV+SARS-CoV-2 (COVID-19) Ag IA.rapid Ql (Resp) Not Detected (07/11/22 10:22 PM) Normal Not Detected FT Man Sero Magnesiumon 07-11-2022 Magnesium [Mass/Vol] 1.4 mg/dL Normal 1.3-2.4 [facility] Comment on above: Performed By: #### 2 928755, 87599766, 0126197, 6946689, 4805299, 6927852, 73008506, 5335609, 4771093, 54417325 ####[facility] [address] [place] [address] Iron Screenon 07-11-2022 Heterophile Ab LA Ql (S) Negative Normal Negative [facility] Comment on above: Performed By: #### 2 861971, 28803036, 2704040, 3120841, 4530644, 3843350, 59473640, 6804502, 7775447, 91428285 ####[facility] [address] [place] [address] PT & PTTon 07-11-2022 aPTT Coag (PPP) [Time] 30.5 second(s) Normal 25.1-36.5 [facility] Comment on above: Result Comment: Para meter 15 days - 4 weeks 1 - 5 months 6 - 11 months 1 - 5 years 6 - 10 years 11 - 17 years PTT Mean: 35.4 (27.6-45.6) Mean: 33.5 (24.8-40.7) Mean: 32.4 (25.1-40.7) Mean: 31.6 (24.0-39.2) Mean: 31.6 (26.9-38.7) Mean: 31.0 (24.6-38.4) Pediatric Reference ranges were obtained from a study by Colton Marie et al. prepared from 1437 samples obtained at 7 different centers using the same coagulation reagent and instrumentation as [facility]. Currently there are no coagulation studies available worldwide for children to 14 days, and no normal ranges. Heparin therapeutic range (represented by Anti-Factor Xa activity of 0.2 - 0.4 U/mL) corresponds to PTT of 56.6 - 109.0 sec. Performed By: #### 2 144408, 36349633, 4008760, 5814615, 2262160, 0887811, 98183781, 5446536, 6419490, 13690094 ####[facility] [address] [place] [address] INR Coag (PPP) [Relative time] 1.1 {INR} Invalid Interpretation Code [facility] Comment on above: Result Comment: INR results are specifically intended to assess patients stabilized on long-term Anticoagulation therapy suggested INR?s ?Less Intensive Anticoagulation? 2.0 ? 3.0Conventional Range 3.0 ? 4.5 Performed By: #### 2 639259, 96387838, 1805564, 3539263, 4665374, 7945168, 37081012, 4372058, 1133505, 62675174 ####[facility] [address] [place] [address] PT Coag (PPP) [Time] 12.0 second(s) Normal 9.4-12.5 [facility] Comment on above: Result Comment: 15 d ays - 4 weeks 1 - 5 months 6 -11 months 1-5 years 6-10 years 11 -17 years Mean: 11.2 (9.5-12.6) Mean: 11.0 (9.7-12.8) Mean: 11.0 (9.8-13.0) Mean: 11.3 (9.9-13.4) Mean: 11.7 (10.0-14.6) Mean: 11.8 (10.0 - 14.1) Pediatric Reference ranges were obtained from a study by Colton Marie et al. prepared from 1437 samples obtained at 7 different centers using the same coagulation reagent and instrumentation as [facility]. Currently there are no coagulation studies available worldwide for children to 14 days, and no normal ranges. Performed By: #### 2 744408, 50820624, 1630833, 0897400, 0976571, 3900253, 39466044, 0374914, 2814262, 54422165 ####[facility] [address] [place] [address] Pre-Arrival Noteon Pre-Arrival Note Normal [facility] Rapid COVID Antigen ([facility])on 07-11-2022 ADMITTED TO INTENSIVE CARE UNIT FOR CONDITION OF INTEREST:FIND:PT: NO Normal [facility] Comment on above: Performed By: #### 1 [id number], [id number] ####[place] [address] EMPLOYED IN A HEALTHCARE SETTING:FIND:PT: NO Normal [facility] Comment on above: Performed By: #### 1 4357440, [id number] ####[place] [address] FIRST TEST FOR CONDITION OF INTEREST:FIND:PT: YES Normal [facility] Comment on above: Performed By: #### 1 2922517, [id number] ####[place] [address] HAS SYMPTOMS RELATED TO CONDITION OF INTEREST:FIND:PT: YES Normal [facility] Comment on above: Performed By: #### 1 6982647, [id number] ####[place] [address] HOSPITALIZED FOR CONDITION OF INTEREST:FIND:PT: NO Normal [facility] Comment on above: Performed By: #### 1 0042200, [id number] ####[place] [address] STATUS:FIND:PT: NO Normal [facility] Comment on above: Performed By: #### 1 5877659, [id number] ####[place] [address] [facility]ID[facility]:FIND:PT: NO Normal [facility] Comment on above: Performed By: #### 1 3660924, [id number] ####[place] [address] SEROLOGYOrdered By: Aura humphrey on 07-11-2022 Heterophile Ab LA Ql (S) Negative (07/11/22 8:19 PM) Normal Negative [facility] Man Sero Troponin 0 Hr.on 07-11-2022 Troponin I.cardiac [Mass/Vol] 4.40 pg/mL Low 15.90-38.40 [facility] Comment on above: Result Comment: The 95% CI (Confidence Interval) PPV (Positive Predictive Value) for myocardial infarction in females is 38 pg/mL, in males 51 pg/mL. The results should be used in conjunction with clinical conditions of myocardial infarction.(Access High Sensitivity Troponin I Instructions For Use, Savana Rocklin, October 2017) Performed By: #### 2 978982, 50562780, 0285898, 8017674, 5185440, 6982646, 80004472, 7696306, 6389636, 31701734 ####[facility] [address] [place] [address] URINALYSISOrdered By: Cortez Doyle on 07-11-2022 Bacteria LM Ql (Urine sed) 1+ /HPF Invalid Interpretation Code Trace/HPF [facility] UA Auto SS Bilirubin Ql (U) Negative (07/11/22 10:00 PM) Normal Negative [facility] UA Auto SS Clarity (U) Clear (07/11/22 10:00 PM) Normal Clear [facility] UA Auto SS Color (U) Yellow (07/11/22 10:00 PM) Normal Yellow [facility] UA Auto SS Epithelial cells.squamous LM.HPF (Urine sed) [#/Area] 3-4 /HPF Normal 0-2/HPF [facility] UA Aut o SS Glucose Test strip (U) [Mass/Vol] 2+ *ABN* (07/11/22 10:00 PM) Invalid Interpretation Code Negative [facility] UA Auto SS Hemoglobin Ql (U) Trace *ABN* (07/11/22 10:00 PM) Invalid Interpretation Code Negative [facility] UA Auto SS Ketones (U) [Mass/Vol] Negative (07/11/22 10:00 PM) Normal Negative [facility] UA Auto SS Callahan.plasma/Callahan. RBC (Bld) [Mass ratio] 4-20 /HPF Normal 0-3/HPF [facility] UA A uto SS Mucus Ql (Urine sed) 1+ (07/11/22 10:00 PM) Normal [facility] UA Auto SS Nitrite Ql (U) Positive *ABN* (07/11/22 10:00 PM) Invalid Interpretation Code Negative [facility] UA Auto SS pH (U) 6.0 *NA* (07/11/22 10:00 PM) Invalid Interpretation Code 5.0 - 9.0 [facility] UA Auto SS Protein (U) [Mass/Vol] 2+ *ABN* (07/11/22 10:00 PM) Invalid Interpretation Code Negative [facility] UA Auto SS Specific gravity (U) [Rel density] 1.020 *NA* (07/11/22 10:00 PM) Invalid Interpretation Code 1.005 - 1.030 [facility] UA Auto SS UA Spec Desc Clean Catch (07/11/22 10:00 PM) Normal [facility] UA Auto SS Urobilinogen Qn (U) [id number] {Chintan'U}/dL Normal 0.0 - 1.0 EU/dL [facility] UA Auto SS WBC Auto Ql (U) Negative (07/11/22 10:00 PM) Normal Negative [facility] UA Auto SS WBC LM.HPF (Urine sed) [#/Area] 6-15 /HPF Invalid Interpretation Code 0-5/HPF [facility] UA Auto SS eGFRon 07-11-2022 GFR/1.73 sq M.predicted among non-blacks MDRD (S/P/Bld) [Vol rate/Area] 91 mL/min/1.73 m2 Normal >=59 [facility] Comment on above: Order Comment: Order added by Discern Expert. Result Comment: Casting Room Helper julián kidney disease could be indicated at eGFR's of less than 60 mL/min/1.73m2. Kidney failure is indicated at less than 15 mL/min/1.73m2. Performed By: #### 2 350288, 71498562, 9016150, 4593000, 8810060, 6236656, 37183545, 2580481, 8668991, 42176984 ####[facility] [address] [place] [address] POINT OF CARE GLUCOSEon Glucose [Mass/Vol] 512 mg/dL Critically high 74-106 [facility] Comment on above: Result Comment: Resu lt Not Confirmed Performed By: #### S EDR #### [facility] [address] [address] [address] Travis Sanchez CBC AUTO DIFFon 06-19-2022 BASO # 0.0 103/ul Normal 0.0-0.1 [facility] Comment on above: Performed By: #### C BC #### [facility] [address] [address] [address] Travis Sanchez Basophils/100 WBC (Bld) 0.1 % Critically low 0.2-2.0 [facility] Comment on above: Performed By: #### C BC #### [facility] [address] [place] [address] Dr. Travis Sanchez EO # 0.0 103/ul Normal 0.0-0.7 [facility] Comment on above: Performed By: #### C BC #### [facility] [address] [place] [address] Dr. Travis Sanchez Eosinophils/100 WBC (Bld) 0.1 % Critically low 0.9-7.0 [facility] Comment on above: Performed By: #### C BC #### [facility] [address] [place] [address] Dr. Travis Sanchez Erythrocyte distribution width (RBC) [Ratio] 13.6 % Normal 11.0-15.0 [facility] Comment on above: Performed By: #### C BC #### [facility] [address] [place] [address] Dr. Travis Sanchez Hematocrit (Bld) [Volume fraction] 41.6 % Critically low 42.0-54.0 [facility] Comment on above: Performed By: #### C BC #### [facility] [address] [place] [address] Dr. Travis Sanchez Hemoglobin (Bld) [Mass/Vol] 13.9 g/dL Critically low 14.0-18.0 [facility] Comment on above: Performed By: #### C BC #### [facility] [address] [place] [address] Dr. Travis Sanchez IG # 0.05 10e3/ul Critically high 0.00-0.03 [facility] Comment on above: Performed By: #### C BC #### [facility] [address] [place] [address] Dr. Travis Sanchez IG % 0.5 % Normal 0.0-0.5 [facility] Comment on above: Performed By: #### C BC #### [facility] [address] [address] [address] Travis Sanchez LYMPH # 1.1 103/ul Critically low 1.2-3.8 [facility] Comment on above: Performed By: #### C BC #### [facility] [address] [address] [address] Travis Sanchez Lymphocytes/100 WBC (Bld) 12.2 % Critically low 20.5-60.0 [facility] Comment on above: Performed By: #### C BC #### [facility] [address] [place] [address] Dr. Travis Sanchez MANUAL DIFF REQ NO Normal [facility] Comment on above: Performed By: #### C BC #### [facility] [address] [place] [address] Dr. Travis Sanchez MCH (RBC) [Entitic mass] 31.2 pg Normal 25.9-34.0 [facility] Comment on above: Performed By: #### C BC #### [facility] [address] [place] [address] Dr. Travis Sanchez MCHC (RBC) [Mass/Vol] 33.4 g/dL Normal 29.9-35.2 [facility] Comment on above: Performed By: #### C BC #### [facility] [address] [place] [address] Dr. Travis Sanchez MCV (RBC) [Entitic vol] 93.3 fL Normal 80.0-94.0 [facility] Comment on above: Performed By: #### C BC #### [facility] [address] [address] [address] Travis Sanchez MONO # 0.5 103/ul Normal 0.3-0.8 [facility] Comment on above: Performed By: #### C BC #### [facility] [address] [place] [address] Dr. Travis Sanchez Monocytes/100 WBC (Bld) 5.3 % Normal 1.7-12.0 [facility] Comment on above: Performed By: #### C BC #### [facility] [address] [address] [address] Travis Sanchez NEUT # 7.5 103/ul Critically high 1.4-6.5 [facility] Comment on above: Performed By: #### C BC #### [facility] [address] [address] [address] Travis Sanchez Neutrophils/100 WBC (Bld) 81.8 % Critically high 43.0-75.0 [facility] Comment on above: Performed By: #### C BC #### [facility] [address] [address] [address] Travis Sanchez Platelet mean volume (Bld) [Entitic vol] 10.6 fL Normal 9.5-13.5 [facility] Comment on above: Performed By: #### C BC #### [facility] [address] [place] [address] Dr. Travis Sanchez PLT 255 103/ul Normal 150-450 [facility] Comment on above: Performed By: #### C BC #### [facility] [address] [address] [address] Travis Sanchez RBC 4.46 106/ul Critically low 4.70-6.10 [facility] Comment on above: Performed By: #### C BC #### [facility] [address] [address] [address] Travis Sanchez WBC 9.1 103/ul Normal 4.0-11.0 [facility] Comment on above: Performed By: #### C BC #### [facility] [address] [place] [address] Dr. Travis Sanchez CRPon 06-19-2022 CRP 1.6 mg/dL Critically high <=1.0 [facility] Comment on above: Performed By: #### S EDR #### [facility] [address] [address] [address] Travis Sanchez PROF CHEM 8 (BAS METB)on Anion gap [Moles/Vol] 13.2 mmol/L Normal Th [facility] Comment on above: Performed By: #### S EDR #### [facility] [address] [address] [address] Travis Sanchez Calcium [Mass/Vol] 9.3 mg/dL Normal 8.5-10.1 [facility] Comment on above: Performed By: #### S EDR #### [facility] [address] [address] [address] Travis Sanchez Chloride [Moles/Vol] 103 mmol/L Normal 98-107 [facility] Comment on above: Performed By: #### S EDR #### [facility] [address] [address] [address] Travis Sanchez CO2 [Moles/Vol] 24.3 mmol/L Normal 21.0-32.0 [facility] Comment on above: Performed By: #### S EDR #### [facility] [address] [place] [address] Dr. Travis Sanchez Creatinine [Mass/Vol] 0.72 mg/dL Normal 0.70-1.30 [facility] Comment on above: Performed By: #### S EDR #### [facility] [address] [place] [address] Dr. Travis Sanchez EGFR-AF CITIZEN OF [place] >60 Normal >=60 [facility] Comment on above: Performed By: #### S EDR #### [facility] [address] [place] [address] Dr. Travis Sanchez EGFR-NON AF CITIZEN OF [place] >60 Normal >=60 [facility] Comment on above: Performed By: #### S EDR #### [facility] [address] [place] [address] Dr. Travis Sanchez Glucose [Mass/Vol] 290 mg/dL Critically high 74-106 [facility] Comment on above: Performed By: #### S EDR #### [facility] [address] [place] [address] Dr. Travis Sanchez Potassium [Moles/Vol] 4.5 mmol/L Normal 3.5-5.1 [facility] Comment on above: Performed By: #### S EDR #### [facility] [address] [place] [address] Dr. Travis Sanchez Sodium [Moles/Vol] 136 mmol/L Normal 136-145 [facility] Comment on above: Performed By: #### S EDR #### [facility] [address] [place] [address] Dr. Travis Sanchez Urea nitrogen [Mass/Vol] 20.0 mg/dL Critically high 7.0-18.0 [facility] Comment on above: Performed By: #### S EDR #### [facility] [address] [place] [address] Dr. Travis Sanchez Urea nitrogen/Creatinine [Mass ratio] 27.8 mg/mg Normal [facility] Comment on above: Performed By: #### S EDR #### [facility] [address] [place] [address] Dr. Travis Sanchez CBC AUTO DIFFon 06-18-2022 BASO # 0.0 103/ul Normal 0.0-0.1 [facility] Comment on above: Performed By: #### S EDR #### [facility] [address] [place] [address] Dr. Travis Sanchez Basophils/100 WBC (Bld) 0.2 % Normal 0.2-2.0 [facility] Comment on above: Performed By: #### S EDR #### [facility] [address] [place] [address] Dr. Travis Sanchez EO # 0.0 103/ul Normal 0.0-0.7 [facility] Comment on above: Performed By: #### S EDR #### [facility] [address] [place] [address] Dr. Travis Sanchez Eosinophils/100 WBC (Bld) 0.4 % Critically low 0.9-7.0 [facility] Comment on above: Performed By: #### S EDR #### [facility] [address] [place] [address] Dr. Travis Sanchez Erythrocyte distribution width (RBC) [Ratio] 13.9 % Normal 11.0-15.0 [facility] Comment on above: Performed By: #### S EDR #### [facility] [address] [address] [address] Travis Sanchez Hematocrit (Bld) [Volume fraction] 42.0 % Normal 42.0-54.0 [facility] Comment on above: Performed By: #### S EDR #### [facility] [address] [place] [address] Dr. Travis Sanchez Hemoglobin (Bld) [Mass/Vol] 14.2 g/dL Normal 14.0-18.0 [facility] Comment on above: Performed By: #### S EDR #### [facility] [address] [place] [address] Dr. Travis Sanchez IG # 0.03 10e3/ul Normal 0.00-0.03 [facility] Comment on above: Performed By: #### S EDR #### [facility] [address] [place] [address] Dr. Travis Sanchez IG % 0.4 % Normal 0.0-0.5 [facility] Comment on above: Performed By: #### S EDR #### [facility] [address] [place] [address] Dr. Travis Sanchez LYMPH # 1.7 103/ul Normal 1.2-3.8 [facility] Comment on above: Performed By: #### S EDR #### [facility] [address] [place] [address] Dr. Travis Sanchez Lymphocytes/100 WBC (Bld) 20.7 % Normal 20.5-60.0 [facility] Comment on above: Performed By: #### S EDR #### [facility] [address] [place] [address] Dr. Travis Sanchez MANUAL DIFF REQ NO Normal [facility] Comment on above: Performed By: #### S EDR #### [facility] [address] [place] [address] Dr. Travis Sanchez MCH (RBC) [Entitic mass] 31.8 pg Normal 25.9-34.0 [facility] Comment on above: Performed By: #### S EDR #### [facility] [address] [address] [address] Travis Sanchez MCHC (RBC) [Mass/Vol] 33.8 g/dL Normal 29.9-35.2 [facility] Comment on above: Performed By: #### S EDR #### [facility] [address] [address] [address] Travis Sanchez MCV (RBC) [Entitic vol] 94.0 fL Normal 80.0-94.0 [facility] Comment on above: Performed By: #### S EDR #### [facility] [address] [place] [address] Dr. Travis Sanchez MONO # 0.5 103/ul Normal 0.3-0.8 [facility] Comment on above: Performed By: #### S EDR #### [facility] [address] [place] [address] Dr. Travis Sanchez Monocytes/100 WBC (Bld) 5.9 % Normal 1.7-12.0 [facility] Comment on above: Performed By: #### S EDR #### [facility] [address] [place] [address] Dr. Travis Sanchez NEUT # 5.9 103/ul Normal 1.4-6.5 [facility] Comment on above: Performed By: #### S EDR #### [facility] [address] [place] [address] Dr. Travis Sanchez Neutrophils/100 WBC (Bld) 72.4 % Normal 43.0-75.0 [facility] Comment on above: Performed By: #### S EDR #### [facility] [address] [place] [address] Dr. Travis Sanchez Platelet mean volume (Bld) [Entitic vol] 11.3 fL Normal 9.5-13.5 [facility] Comment on above: Performed By: #### S EDR #### [facility] [address] [place] [address] Dr. Travis Sanchez PLT 236 103/ul Normal 150-450 [facility] Comment on above: Performed By: #### S EDR #### [facility] [address] [address] [address] Travis Sanchez RBC 4.47 106/ul Critically low 4.70-6.10 [facility] Comment on above: Performed By: #### S EDR #### [facility] [address] [address] [address] Travis Sanchez WBC 8.1 103/ul Normal 4.0-11.[address] [facility] Comment on above: Performed By: #### S EDR #### [facility] [address] [address] [address] Travis Sanchez CRPon 06-18-2022 CRP 2.9 mg/dL Critically high <=1.0 [facility] Comment on above: Performed By: #### S EDR #### [facility] [address] [address] [address] Travis Sanchez Covid-19 PCR ([facility])on 06-06 SARS-CoV-2 (COVID-19) RNA ECTOR+probe Ql (Unsp spec) Not detected Normal NOT DETECTED [facility] Comment on above: Result Comment: When diagnostic testing is negative, the possibility of a false negative should be considered in the context of a patient's recent exposures and the presence of clinical signs and symptoms consistent with SARS-CoV-2. This test is not yet approved or cleared by the [place] FDA. When there are no FDA-approved or cleared tests available, and other criteria are met, FDA can make tests available under an emergency access mechanism called an Emergency Use Authorization (EUA). The EUA for this test is supported by the [place] of Health and Human Service's declaration that circumstances exist to justify the emergency use of in vitro diagnostics for the detection and/or diagnosis of the virus that causes COVID-19. This EUA will remain in effect for the duration of the COVID-19 declaration justifying emergency of IVDs, unless it is terminated or revoked by the FDA (after which the test may no longer be used). Performed By: #### C BC #### [facility] [address] [address] [address] Travis Sanchez MRI [facility] WO CONon 06-19-19 23 MRI [facility] WO CON HISTORY: Right-sided low back pain with radiculopathy for the past 2-3 weeks. The patient was found to have a large disc extrusion at the L4-L5 level on a recent CT scan. MRI [facility] WO CON: 06/18/2022 9:29 AM EDT COMPARISON: CT scan lumbar spine 06/12/2022. TECHNIQUE: Sagittal T1, T2, STIR, axial T1 and axial T2-weighted images of the lumbar spine were obtained. FINDINGS: Several images are slightly degraded by motion artifact. A mild rotatory levoconvex scoliosis of the lumbar spine is again seen. There is mild discogenic disease at the L1-L2, L3-L4 and L4-L5 levels with disc desiccation and osteophyte formation at these levels. There is no compression fracture or subluxation. There is a chronic Schmorl's node deformity of the superior endplate of L5. There is a moderate-sized hemangioma within the superior aspect of L3. The bone marrow signal intensity appears age appropriate. The conus medullaris is not studied in detail, but it appears grossly unremarkable. L1-L2 level: There is a very small posterior disc-osteophyte complex without spinal canal stenosis or foraminal narrowing. L2-L3 level: No significant disc protrusion, spinal canal stenosis, or foraminal narrowing is seen. L3-L4 level: A small central/left paracentral disc-osteophyte complex containing an annular fissure is again seen and this appears to cause mild spinal canal stenosis. No foraminal narrowing is seen. There is mild facet joint arthropathy. L4-L5 level: There is redemonstration of a large central/right paracentral disc extrusion which dissects caudally to the inferior aspect of L5 and into the right lateral recess. This causes severe spinal canal stenosis and severe narrowing of the right lateral recess with compression of the descending right L5 nerve root. A small disc-osteophyte complex at this level appears to cause minimal bilateral foraminal narrowing. Mild facet joint arthropathy. L5-S1 level: No significant disc protrusion, spinal canal stenosis, or foraminal narrowing is seen. IMPRESSION: 1. At the L4-L5 level there is redemonstration of a large central/right paracentral disc extrusion dissecting caudally to the inferior aspect of L5 in the right lateral recess. This causes severe spinal canal stenosis and severe narrowing of the right lateral recess with compression of the descending right L5 nerve root. There is also minimal bilateral foraminal narrowing at this level secondary to a small disc-osteophyte complex. 2. Stable appearance of a small central/left paracentral disc-osteophyte complex at the L3-L4 level which causes mild spinal canal stenosis. 3. Mild rotatory levoconvex scoliosis of the lumbar spine with mild multilevel discogenic disease. Electronically authenticated by: GERTRUDIS CHAUHAN Date: 2022-06-18 13:13 Normal [facility] POINT OF CARE GLUCOSEon 06-06 Glucose [Mass/Vol] 352 mg/dL Critically high -106 [facility] Comment on above: Performed By: #### P OCGLUC #### [facility] [address] [address] [address] Travis Sanchez Glucose [Mass/Vol] 183 mg/dL Critically high [facility]106 [facility] Comment on above: Performed By: #### S EDR #### [facility] [address] [address] [address] Travis Sanchez Glucose [Mass/Vol] 178 mg/dL Critically high [address] [place] [address] Comment on above: Performed By: #### P OCGLUC #### [facility] [address] [address] [address] Travis Sanchez Glucose [Mass/Vol] 252 mg/dL Critically high [facility]106 [facility] Comment on above: Performed By: #### P SASC #### [facility] [address] [address] [address] Travis Sanchez Glucose [Mass/Vol] 272 mg/dL Critically high [address] [place] [address] Comment on above: Performed By: #### S EDR #### [facility] [address] [address] [address] Travis Sanchez PROF CHEM 8 (BAS METB)on Anion gap [Moles/Vol] 15.3 mmol/L Normal [facility] Comment on above: Performed By: #### S EDR #### [facility] [address] [address] [address] Travis Sanchez Calcium [Mass/Vol] 8.6 mg/dL Normal 8.5-10.1 [facility] Comment on above: Performed By: #### S EDR #### [facility] [address] [address] [address] Travis Sanchez Chloride [Moles/Vol] 102 mmol/L Normal 98-107 [facility] Comment on above: Performed By: #### S EDR #### [facility] [address] [address] [address] Travis Sanchez CO2 [Moles/Vol] 25.1 mmol/L Normal 21.0-32.0 [facility] Comment on above: Performed By: #### S EDR #### [facility] [address] [place] [address] Dr. Travis Sanchez Creatinine [Mass/Vol] 0.84 mg/dL Normal 0.70-1.30 [facility] Comment on above: Performed By: #### S EDR #### [facility] [address] [address] [address] Travis Sanchez EGFR-AF CITIZEN OF [place] >60 Normal >=60 [facility] Comment on above: Performed By: #### S EDR #### [facility] [address] [address] [address] Travis Sanchez EGFR-NON AF CITIZEN OF [place] >60 Normal >=60 [facility] Comment on above: Performed By: #### S EDR #### [facility] [address] [address] [address] Travis Sanchez Glucose [Mass/Vol] 348 mg/dL Critically high 74-106 [facility] Comment on above: Performed By: #### S EDR #### [facility] [address] [address] [address] Travis Sanchez Potassium [Moles/Vol] 4.4 mmol/L Normal 3.5-5.1 [facility] Comment on above: Performed By: #### S EDR #### [facility] [address] [address] [address] Travis Sanchez Sodium [Moles/Vol] 138 mmol/L Normal 136-145 [facility] Comment on above: Performed By: #### S EDR #### [facility] [address] [address] [address] Travis Sanchez Urea nitrogen [Mass/Vol] 14.0 mg/dL Normal 7.0-18.0 [facility] Comment on above: Performed By: #### S EDR #### [facility] [address] [address] [address] Travis Sanchez Urea nitrogen/Creatinine [Mass ratio] 16.7 mg/mg Normal [facility] Comment on above: Performed By: #### S EDR #### [facility] [address] [address] [address] Travis [facility] 35 mm/hr Critically high <=15 [facility] Comment on above: Performed By: #### S EDR #### [facility] [address] [place] [address] LSPINE WO CONon 3 CT LSPINE WO CON EXAM: CT LSPINE WO CON HISTORY: Right-sided back pain COMPARISON: Lumbar spine x-rays 04/14/2017 TECHNIQUE: Axial CT imaging is performed through the lumbar spine. Sagittal and coronal reformatted/reconstru cted sequences were additionally performed. FINDINGS: Maintenance of the normal lumbar lordosis. Vertebral body heights and alignments exhibit no fracture or listhesis. Sacralization of the L5 vertebral body, a normal anatomic variant. Large disc herniation at L4-L5. Scattered small endplate osteophytes. Intervertebral disc space heights are relatively maintained. Mild facet arthrosis. No prevertebral or paraspinal soft tissue edema. Sacroiliac joints are unremarkable for patient's age. IMPRESSION: Large L4-L5 disc herniation. Outpatient MRI imaging without contrast and spine surgery consultation is necessary Electronically authenticated by: ELIUD HERNANDEZ Date: 2022-06-12 18:44 Normal [facility] Ambulatory Visit Summaryon 0 06-11-2022 Ambulatory Visit Summary Normal [facility] Patient Educationon 06-12-19 Patient Education Normal [facility] Urology Office/Clinic Noteon 06-11-2022 Urology Office/Clinic Note Normal [facility] Comment on above: Result Comment: Elec tronically Signed By: MARIANA BRIGGS PA-C\.br\Date and Time Signed: 06/11/22 09:07 EDT\.br\Electronically Co-Signed By: Alannah Ragland MA\.br\Date and Time Co-Signed: 06/11/22 09:01 EDT CBC AUTO DIFFon 05-24-2022 BASO # 0.1 103/ul Normal 0.0-0.1 [facility] Comment on above: Performed By: #### C BC #### [facility] [address] [place] [address] Dr. Travis Sanchez Basophils/100 WBC (Bld) 0.4 % Normal 0.2-2.0 [facility] Comment on above: Performed By: #### C BC #### [facility] [address] [place] [address] Dr. Travis Sanchez EO # 0.0 103/ul Normal 0.0-0.7 [facility] Comment on above: Performed By: #### C BC #### [facility] [address] [place] [address] Dr. Travis Sanchez Eosinophils/100 WBC (Bld) 0.3 % Critically low 0.9-7.0 [facility] Comment on above: Performed By: #### C BC #### [facility] [address] [place] [address] Dr. Travis Sanchez Erythrocyte distribution width (RBC) [Ratio] 14.3 % Normal 11.0-15.0 [facility] Comment on above: Performed By: #### C BC #### [facility] [address] [place] [address] Dr. Travis Sanchez Hematocrit (Bld) [Volume fraction] 41.2 % Critically low 42.0-54.0 [facility] Comment on above: Performed By: #### C BC #### [facility] [address] [place] [address] Dr. Travis Sanchez Hemoglobin (Bld) [Mass/Vol] 13.9 g/dL Critically low 14.0-18.0 [facility] Comment on above: Performed By: #### C BC #### [facility] [address] [place] [address] Dr. Travis Sanchez IG # 0.05 10e3/ul Critically high 0.00-0.03 [facility] Comment on above: Performed By: #### C BC #### [facility] [address] [place] [address] Dr. Travis Sanchez IG % 0.4 % Normal 0.0-0.5 [facility] Comment on above: Performed By: #### C BC #### [facility] [address] [place] [address] Dr. Travis Sanchez LYMPH # 1.2 103/ul Normal 1.2-3.8 [facility] Comment on above: Performed By: #### C BC #### [facility] [address] [place] [address] Dr. Travis Sanchez Lymphocytes/100 WBC (Bld) 8.9 % Critically low 20.5-60.0 [facility] Comment on above: Performed By: #### C BC #### [facility] [address] [place] [address] Dr. Travis Sanchez MANUAL DIFF REQ NO Normal [facility] Comment on above: Performed By: #### C BC #### [facility] [address] [place] [address] Dr. Travis Sanchez MCH (RBC) [Entitic mass] 31.5 pg Normal 25.9-34.0 [facility] Comment on above: Performed By: #### C BC #### [facility] [address] [place] [address] Dr. Travis Sanchez MCHC (RBC) [Mass/Vol] 33.7 g/dL Normal 29.9-35.2 [facility] Comment on above: Performed By: #### C BC #### [facility] [address] [place] [address] Dr. Travis Sanchez MCV (RBC) [Entitic vol] 93.4 fL Normal 80.0-94.0 [facility] Comment on above: Performed By: #### C BC #### [facility] [address] [place] [address] Dr. Travis Sanchez MONO # 1.0 103/ul Critically high 0.3-0.8 [facility] Comment on above: Performed By: #### C BC #### [facility] [address] [place] [address] Dr. Travis Sanchez Monocytes/100 WBC (Bld) 7.3 % Normal 1.7-12.0 [facility] Comment on above: Performed By: #### C BC #### [facility] [address] [place] [address] Dr. Travis Sanchez NEUT # 11.4 103/ul Critically high 1.4-6.5 [facility] Comment on above: Performed By: #### C BC #### [facility] [address] [place] [address] Dr. Travis Sanchez Neutrophils/100 WBC (Bld) 82.7 % Critically high 43.0-75.0 [facility] Comment on above: Performed By: #### C BC #### [facility] [address] [place] [address] Dr. Travis Sanchez Platelet mean volume (Bld) [Entitic vol] 11.0 fL Normal 9.5-13.5 [facility] Comment on above: Performed By: #### C BC #### [facility] [address] [place] [address] Dr. Travis Sanchez PLT 262 103/ul Normal 150-[address] [facility] Comment on above: Performed By: #### C BC #### [facility] [address] [place], [place] [id number] Dr. Travis Sanchez RBC 4.41 106/ul Critically low 4.70-6.10 [facility] Comment on above: Performed By: #### C BC #### [facility] [address] [place] [address] Dr. Travis Sanchez WBC 13.8 103/ul Critically high 4.0-11.0 [facility] Comment on above: Performed By: #### C BC #### [facility] [address] [place], [place] [address] Dr. Travis Sanchez CRPon 05-24-2022 CRP 16.3 mg/dL Critically high <=1.0 [facility] Comment on above: Performed By: #### P SASC #### [facility] [address] [place], [place] [address] FACIAL BONES WO CONon CT FACIAL BONES WO CON INDICATION: 31 ye ars old; Male. Headache. Right-sided facial tenderness for 2 days. History of cellulitis. TECHNIQUE: CT Head (ax/cor/sag reformats). Ionizing radiation dose reduced via iterative reconstruction/FBP blend and body size kV/mA adjustment. Comparison: Brain MRI dated 10/19/2019. Head CT dated 10/12/2012. FINDINGS: POSTOPERATIVE CHANGES: None. BRAIN PARENCHYMA: No focal lesions. No mass effect. No midline shift or herniation. No intraparenchymal or extra-axial hemorrhage. Normal victor/white differentiation. VENTRICLES/EXTRA-AXIA L SPACES: Normal for patient's age. SINUSES/MASTOIDS: The visualized sinuses are clear. Left frontal sinuses are hypoplastic. Mastoid air cells are clear. MSK: No displaced or depressed calvarial fracture is noted. OTHER: No hyperdense intraluminal thrombus is seen. TECHNIQUE: CT of the facial bones was performed. IV contrast: None. Axial, coronal, sagittal reformats were created and reviewed. Dose reduction techniques were achieved by using automated exposure control and/or adjustment of mA and/or kV according to patient size and/or use of iterative reconstruction technique. COMPARISON: None FINDINGS: FRONTAL BONES: SUPRAORBITAL SOFT TISSUES: Normal without swelling, laceration or foreign body. ORBITS: Globes: Normal without proptosis or evidence of disruption or intraocular foreign body. Retrobulbar fat: normal without mass or hematoma. Extraocular Muscles: Normal and symmetric without prolapse or evidence of entrapment. Optic Nerves: Normal without mass-effect or evidence of disruption. Preseptal Soft Tissues: Normal without swelling, laceration or foreign body. Gillespie: Intact without evidence of fracture. MAXILLA AND MANDIBLE: Maxillary and buccal soft tissues: Normal without swelling, laceration or foreign body. Maxillary bones: Intact bilaterally without fracture or avulsed teeth. Mandible: Intact bilaterally without fracture, dislocation or avulsed teeth. Nasal bones and septum: There is no soft tissue swelling. No evidence of nasal bone fracture. No evidence of septal fracture. PARANASAL SINUSES: Frontal: Clear. Ethmoid: Clear. Maxillary: Clear. Sphenoid: Clear. Zygomatic arch: Intact bilaterally. Pterygoid plates: Intact bilaterally. IMPRESSION: 1. No acute intracranial abnormality. No hemorrhage or mass effect. 2. No facial fracture or bony deformity is appreciated. 3. No drainable fluid collections are seen within the subcutaneous soft tissues. Direct visualization is recommended. Electronically authenticated by: SEGUN GALLEGOS Date: 2022-05-24 00:14 Normal [facility] LACTATE/LACTIC ACIDon 2022 Lactate [Moles/Vol] 1.3 mmol/L Normal 0.4-2.0 [facility] Comment on above: Performed By: #### C BC #### [facility] [address] [place] [address] Dr. Travis Sanchez POINT OF CARE GLUCOSEon 05-06 Glucose [Mass/Vol] 208 mg/dL Critically high 74-106 [facility] Comment on above: Performed By: #### P SASC #### [facility] [address] [place] [address] Dr. Travis Sanchez PROF CHEM 8 (BAS METB)on Anion gap [Moles/Vol] 13.9 mmol/L Normal [facility] Comment on above: Performed By: #### P SASC #### [facility] [address] [place] [address] Dr. Travis Sanchez Calcium [Mass/Vol] 8.8 mg/dL Normal 8.5-10.1 [facility] Comment on above: Performed By: #### P SASC #### [facility] [address] [place] [address] Dr. Travis Sanchez Chloride [Moles/Vol] 98 mmol/L Normal 98-107 [facility] Comment on above: Performed By: #### P SASC #### [facility] [address] [address] [address] Travis Sanchez CO2 [Moles/Vol] 25.9 mmol/L Normal 21.0-32.0 [facility] Comment on above: Performed By: #### P SASC #### [facility] [address] [place] [address] Dr. Travis Sanchez Creatinine [Mass/Vol] 0.74 mg/dL Normal 0.70-1.30 [facility] Comment on above: Performed By: #### P SASC #### [facility] Laboratory [address] [place] [address] Dr. Travis Sanchez EGFR-AF CITIZEN OF [place] >60 Normal >=60 [facility] Comment on above: Performed By: #### P SASC #### [facility] Laboratory [address] [place] [address] Dr. Travis Sanchez EGFR-NON AF CITIZEN OF [place] >60 Normal >=60 [facility] Comment on above: Performed By: #### P SASC #### [facility] Laboratory [address] [address] [address] Travis Sanchez Glucose [Mass/Vol] 203 mg/dL Critically high 74-106 [facility] Comment on above: Performed By: #### P SASC #### [facility] Laboratory [address] [place] [address] Dr. Travis Sanchez Potassium [Moles/Vol] 3.8 mmol/L Normal 3.5-5.1 [facility] Comment on above: Performed By: #### P SASC #### [facility] [address] [address] [address] Travis Sanchez Sodium [Moles/Vol] 134 mmol/L Critically low 136-145 Th [facility] Comment on above: Performed By: #### P SASC #### [facility] [address] [place] [address] Dr. Travis Sanchez Urea nitrogen [Mass/Vol] 9.0 mg/dL Normal 7.0-18.0 [facility] Comment on above: Performed By: #### P SASC #### [facility] [address] [place] [address] Dr. Travis Sanchez Urea nitrogen/Creatinine [Mass ratio] 12.2 mg/mg Normal [facility] Comment on above: Performed By: #### P [facility] #### [facility] [address] [place], [place] [address] Dr. Travis Sanchez SED RATE WESTERGRENon 2022 SED RATE 61 mm/hr Critically high <=15 [facility] Comment on above: Performed By: #### S EDR #### [facility] [address] [place], [place] [address] Dr. Travis Sanchez Glucose Glucometer (BldC) [M ass/Vol]Ordered By: Dell Kim on 04-04-2022 Glucose [Mass/Vol] 144 mg/dL [facility] Comment on above: Random Glucose Refer ence Range is dependent on time and content of last meal. Glucose of more than 200 mg/dL in a nonstressed, ambulatory subject supports the diagnosis of Diabetes Mellitus. Glucose Poct Glucometerson 0 04-04-2022 Glucose [Mass/Vol] 144 mg/dL Normal [facility] Comment on above: Result Comment: [place] om Glucose Reference Range is dependent on time and content of last meal. Glucose of more than 200 mg/dL in a nonstressed, ambulatory subject supports the diagnosis of Diabetes Mellitus. PERFORMED BY: [facility] [address] [facility] [place] [address] PATHOLOGIST REFRACTORY MANAGER JOSSELYN ROSEN M.D. Performed By: #### G LULS #### Point of Care testing , Glucose Poct Glucometerson 0 04-03-2022 Glucose [Mass/Vol] 143 mg/dL Normal [facility] Comment on above: Result Comment: [place] om Glucose Reference Range is dependent on time and content of last meal. Glucose of more than 200 mg/dL in a nonstressed, ambulatory subject supports the diagnosis of Diabetes Mellitus. PERFORMED BY: [facility] [address] [place] [address] PATHOLOGIST REFRACTORY MANAGER JOSSELYN ROSEN M.D. Performed By: #### G LULS #### Point of Care testing , Cholesterol [Mass/volume] in Serum or PlasmaOrdered By: Dell Kim on 04-02-2022 Cholesterol [Mass/Vol] 244 mg/dL 140-200 [facility] Comment on above: Chol less than 200 m g/dl low riskChol 201-239 mg/dl borderline riskChol 240 mg/dl and greater high risk Cholesterol in LDL Calc [Mas s/Vol]Ordered By: Dell Kim on 04-02-2022 Cholesterol in LDL [Mass/Vol] [facility] Comment on above: Test not performed Cholesterol in VLDL Calc [Ma ss/Vol]Ordered By: Dell Kim on 04-02-2022 Cholesterol in VLDL [Mass/Vol] [facility] Comment on above: Test not performed Glucose Poct Glucometerson 0 04-02-2022 Commemt1 Glu2: Cleaned Meter Normal [facility] Comment on above: Result Comment: PERF ORMED BY: [place] [address] PATHOLOGIST REFRACTORY MANAGER JOSSELYN ROSEN M.D. Performed By: #### G LULS ####Point of Care testing, Glucose [Mass/Vol] 239 mg/dL Normal [facility] Comment on above: Result Comment: [facility] Glucose Reference Range is dependent on time and content of last meal. Glucose of more than 200 mg/dL in a nonstressed, ambulatory subject supports the diagnosis of Diabetes Mellitus. Performed By: #### G LULS ####Point of Care testing, LDL Cholesterol Measuredon 0 04-02-2022 LDL Cholesterol Measured 122 mg/dL High 0-100 [facility] Comment on above: Result Comment: LDL ATP III CLASSIFICATION LDL less than 100 mg/dL Optimal LDL 100-129 mg/dL Near or above optimal LDL 130-159 mg/dL Borderline high LDL 160-189 mg/dL High LDL greater than 189 mg/dL Very high Performed By: #### L IPID, [id number], TSH3 wRFLX, LDLD #### [address] Lipid Panelon 04-02-2022 Cholesterol [Mass/Vol] 244 mg/dL High 140-200 [facility] Comment on above: Result Comment: Chol less than 200 mg/dl low risk Chol 201-239 mg/dl borderline risk Chol 240 mg/dl and greater high risk Performed By: #### L IPID, [id number], TSH3 wRFLX, LDLD #### [facility] [address] [id number] [place] Cholesterol in HDL [Mass/Vol] 29 mg/dL Normal 29-71 [facility] Comment on above: Result Comment: HDL CHOL ATP-III CLASSIFICATION Cardiovascular Risk HDL > or equal to 60 mg/dL LOW HDL < 40 mg/dL HIGH Performed By: #### L IPID, [id number], TSH3 wRFLX, LDLD #### [facility] [address] Cholesterol.total/Linette sterol in HDL [Mass ratio] 8.4 {ratio} Normal <5.0 [facility] Comment on above: Performed By: #### L IPID, [id number], TSH3 wRFLX, LDLD #### [facility] [address] [id number] [facility] LDL Cholesterol,Calculated Not performed Normal 0-100 [facility] Comment on above: Performed By: #### L IPID, [id number], TSH3 wRFLX, LDLD #### [facility] [address] [id number] [place] Triglyceride w/Reflex 622 mg/dL High 35-149 [facility] Comment on above: Result Comment: TRIG ATP III CLASSIFICATION TRIG less than 150 mg/dL Normal TRIG 150-199 mg/dL Borderline high TRIG 200-500 mg/dL High TRIG greater than 500 mg/dL Very high Standard traceable to the Center for Disease Conrtrol and Prevention (CDC) test method. If the triglyceride result is greater than 400, LDLC and related calculations cannot be calculated and resulted. Performed By: #### L IPID, [id number], TSH3 wRFLX, LDLD #### [facility] [address] [id number] [place] VLDL CHOLESTEROL Not performed Normal [facility] Comment on above: Performed By: #### L IPID, [id number], TSH3 wRFLX, LDLD #### [facility] [address] No Panel InformationOrdered By: Dell Kim on 04-02-2022 Bedside Glucose Comment Glu2: cleaned meter [facility] 25-Hydroxy Vitamin D Total < 7.0 ng/mL 30-100 [facility] Comment on above: VITAMIN D STATUS 25( [place])VITAMIN D RANGE (ng/mL) Deficient <20 Insufficient 20 to <30Sufficient 30 to 100Reference: Rosy MF,Byron MENDOZA, Rajinder GALDAMEZ, et al. Evaluation,treatment, and prevention of vitamin D deficiency; an Endocrine Society clinical practice guideline. JCEM. 2010; 96(7):1911-30. Serum or plasma cholesterol in LDL measurement (mass/volume)Ordered By: Dell Kim on 04-02-2022 Cholesterol in LDL [Mass/Vol] 122 mg/dL 0-100 [facility] Comment on above: LDL ATP III CLASSIFI CATIONLDL less than 100 mg/dL OptimalLDL 100-129 mg/dL Near or above optimalLDL 130-159 mg/dL Borderline highLDL 160-189 mg/dL HighLDL greater than 189 mg/dL Very high Serum or plasma high density lipoprotein (HDL) cholesterol measurementOrdered By: Dell Kim on 04-02-2022 Cholesterol in HDL [Mass/Vol] 29 mg/dL 29-71 [facility] Comment on above: HDL CHOL ATP-III CLA SSIFICATION Cardiovascular RiskHDL > or equal to 60 mg/dL LOWHDL < 40 mg/dL HIGH Serum or plasma total choles terol/high density lipoprotein (HDL) cholesterol mass ratOrdered By: Dell Kim on 04-02-2022 Cholesterol.total/Linette sterol in HDL [Mass ratio] 8.4 {ratio} <5.0 [facility] TSH DL <= 0.005 mIU/L QnOrde red By: Dell Kim on 04-02-2022 TSH Qn 1.06 m[IU]/L 0.45-5.33 [facility] Thyroid Stim Hormone w/Rflxo n 04-02-2022 Thyroid Stim Hormone w/Rflx 1.06 u[iU]/mL Normal 0.45-5.33 [facility] Comment on above: Performed By: #### L IPID, [id number], TSH3 wRFLX, LDLD #### [facility] [address] [id number] [facility] Triglyceride [Mass/volume] i n Serum or PlasmaOrdered By: Dell Kim on 04-02-2022 Triglyceride [Mass/Vol] 622 mg/dL 35-149 [facility] Comment on above: If the triglyceride result is greater than 400, LDLC and related calculations cannot be calculated and resulted.TRIG ATP III CLASSIFICATIONTRIG less than 150 mg/dL NormalTRIG 150-199 mg/dL Borderline highTRIG 200-500 mg/dL High TRIG greater than 500 mg/dL Very highStandard traceable to the Center for Disease Conrtrol and Prevention (CDC) test method. Vitamin D 25 Hydroxy Totalon 04-02-2022 Vitamin D 25 Hydroxy Total < 7.0 Low 30-100 [facility] Comment on above: Result Comment: SANDRA MIN D STATUS 25([place])VITAMIN D RANGE (ng/mL) Deficient <20 Insufficient 20 to <30 Sufficient 30 to 100 Reference: Rosy MF,Byron NC, Hilario-Alex GALDAMEZ, et al. Evaluation,treatment, and prevention of vitamin D deficiency; an Endocrine Society clinical practice guideline. JCEM. 2010; 96(7):1911-30. PERFORMED BY: [place] [address] PATHOLOGIST REFRACTORY MANAGER JOSSELYN ROSEN M.D. Performed By: #### L IPID, [id number], TSH3 wRFLX, LDLD #### [facility] [address] [id number] [facility] ACETAMINOPHENon 04-01-2022 Acetaminophen [Mass/Vol] ug/mL Critically low 10.0-30.0 [facility] Comment on above: Performed By: #### C VDTBH #### [facility] [address] [address] [address] Travis Sanchez CBC AUTO DIFFon 04-01-2022 BASO # 0.1 103/ul Normal 0.0-0.1 [facility] Comment on above: Performed By: #### C BC #### [facility] [address] [address] [address] Travis Sanchez Basophils/100 WBC (Bld) 0.8 % Normal 0.2-2.0 [facility] Comment on above: Performed By: #### C BC #### [facility] [address] [address] [address] Travis Sanchez EO # 0.1 103/ul Normal 0.0-0.7 [facility] Comment on above: Performed By: #### C BC #### [facility] [address] [place] [address] Dr. Travis Sanchez Eosinophils/100 WBC (Bld) 1.3 % Normal 0.9-7.0 [facility] Comment on above: Performed By: #### C BC #### [facility] [address] [place] [address] Dr. Travis Sanchez Erythrocyte distribution width (RBC) [Ratio] 14.1 % Normal 11.0-15.0 [facility] Comment on above: Performed By: #### C BC #### [facility] [address] [place] [address] Dr. Travis Sanchez Hematocrit (Bld) [Volume fraction] 47.9 % Normal 42.0-54.0 [facility] Comment on above: Performed By: #### C BC #### [facility] [address] [place] [address] Dr. Travis Sanchez Hemoglobin (Bld) [Mass/Vol] 15.4 g/dL Normal 14.0-18.0 [facility] Comment on above: Performed By: #### C BC #### [facility] [address] [place] [address] Dr. Travis Sanchez IG # 0.03 10e3/ul Normal 0.00-0.03 [facility] Comment on above: Performed By: #### C BC #### [facility] [address] [place] [address] Dr. Travis Sanchez IG % 0.4 % Normal 0.0-0.5 [facility] Comment on above: Performed By: #### C BC #### [facility] [address] [place] [address] Dr. Travis Sanchez LYMPH # 1.7 103/ul Normal 1.2-3.8 [facility] Comment on above: Performed By: #### C BC #### [facility] [address] [place] [address] Dr. Travis Sanchez Lymphocytes/100 WBC (Bld) 22.1 % Normal 20.5-60.0 [facility] Comment on above: Performed By: #### C BC #### [facility] [address] [place] [address] Dr. Travis Sanchez MANUAL DIFF REQ NO Normal [facility] Comment on above: Performed By: #### C BC #### [facility] [address] [place] [address] Dr. Travis Sanchez MCH (RBC) [Entitic mass] 31.5 pg Normal 25.9-34.0 [facility] Comment on above: Performed By: #### C BC #### [facility] [address] [place] [address] Dr. Travis Sanchez MCHC (RBC) [Mass/Vol] 32.2 g/dL Normal 29.9-35.2 [facility] Comment on above: Performed By: #### C BC #### [facility] [address] [place] [address] Dr. Travis Sanchez MCV (RBC) [Entitic vol] 98.0 fL Critically high 80.0-94 .0 [facility] Comment on above: Performed By: #### C BC #### [facility] [address] [place] [address] Dr. Travis Sanchez MONO # 0.5 103/ul Normal 0.3-0.8 [facility] Comment on above: Performed By: #### C BC #### [facility] [address] [place] [address] Dr. Travis Sanchez Monocytes/100 WBC (Bld) 6.2 % Normal 1.7-12.0 [facility] Comment on above: Performed By: #### C BC #### [facility] [address] [place] [address] Dr. Travis Sanchez NEUT # 5.3 103/ul Normal 1.4-6.[address] [facility] Comment on above: Performed By: #### C BC #### [facility] [address] [place] [address] Dr. Travis Sanchez Neutrophils/100 WBC (Bld) 69.2 % Normal 43.0-75.0 [facility] Comment on above: Performed By: #### C BC #### [facility] [address] [place] [address] Dr. Travis Sanchez Platelet mean volume (Bld) [Entitic vol] 11.0 fL Normal 9.5-13.5 [facility] Comment on above: Performed By: #### C BC #### [facility] [address] [place] [address] Dr. Travis Sanchez PLT 314 103/ul Normal 150-[address] [facility] Comment on above: Performed By: #### C BC #### [facility] [address] [place] [address] Dr. Travis Sanchez RBC 4.89 106/ul Normal 4.70-6.[address] [facility] Comment on above: Performed By: #### C BC #### [facility] [address] [place] [address] Dr. Travis Sanchez WBC 7.6 103/ul Normal 4.0-11.0 [facility] Comment on above: Performed By: #### C BC #### [facility] [address] [place] [address] Dr. Travis Sanchez CULTURE URINEon 04-01-2022 CULTURE URINE Culture Observations : NO GROWTH. Normal [facility] Comment on above: Performed By: #### C VDTBH #### [facility] [address] [place] [address] Dr. Travis Sanchez Covid-19 PCR (CVDTB)on 03-09 SARS-CoV-2 (COVID-19) RNA ECTOR+probe Ql (Unsp spec) Not detected Normal NOT DETECTED [facility] Comment on above: Result Comment: When diagnostic testing is negative, the possibility of a false negative should be considered in the context of a patient's recent exposures and the presence of clinical signs and symptoms consistent with SARS-CoV-2. This test is not yet approved or cleared by the [place] FDA. When there are no FDA-approved or cleared tests available, and other criteria are met, FDA can make tests available under an emergency access mechanism called an Emergency Use Authorization (EUA). The EUA for this test is supported by the Contract Negotiation Manager of Health and Human Service's declaration that circumstances exist to justify the emergency use of in vitro diagnostics for the detection and/or diagnosis of the virus that causes COVID-19. This EUA will remain in effect for the duration of the COVID-19 declaration justifying emergency of IVDs, unless it is terminated or revoked by the FDA (after which the test may no longer be used). Performed By: #### C VDTB #### [facility] [address] [place] [address] Dr. Travis Sanchez DRUG SCREEN RAPID (URINE)on 04-01-2022 AMP Negative Normal NEGATIVE [facility] Comment on above: Performed By: #### C BC #### [facility] [address] [place] [address] Dr. Travis Sanchez BAR Negative Normal NEGATIVE [facility] Comment on above: Performed By: #### C BC #### [facility] [address] [place] [address] Dr. Travis Sanchez BUP Negative Normal NEGATIVE [facility] Comment on above: Performed By: #### C BC #### [facility] [address] [place] [address] Dr. Travis Sanchez BZO Negative Normal NEGATIVE [facility] Comment on above: Performed By: #### C BC #### [facility] [address] [place] [address] Dr. Travis Sanchez JESUS Negative Normal NEGATIVE [facility] Comment on above: Performed By: #### C BC #### [facility] [address] [place] [address] Dr. Travis Sanchez CUT-OFFS SEE BELOW Normal [facility] Comment on above: Result Comment: AMP (Amphetamine): 500ng/mL, BAR (Barbituates): 200 ng/mL, BZO (Benzodiazepines): 150 ng/mL, BUP (Buprenorphine): 10 ng/mL, JESUS (Cocaine): 150 ng/mL, mAMP (Methamphetamine): 500 ng/mL, MTD (Methadone): 200 ng/mL, OPI (Opiates): 100 ng/mL, OXY (Oxycodone): 100 ng/mL, PCP (Phencyclidine): 25 ng/mL, PPX (Propoxyphene): 300 ng/mL, THC (Cannabinoids): 50 ng/mL, TCA (Trycyclic Antidepressants): 300 ng/mL Performed By: #### C BC #### [facility] [address] [place] [address] Dr. Travis Sanchez DRUG CUT HEADER DRUG CLASS TEST SYSTEM CUT-OFF CONCENTRATIONS ARE FOLLOWS: Normal [facility] Comment on above: Performed By: #### C BC #### [facility] [address] [place] [address] Dr. Travis Sanchez mAMP Negative Normal NEGATIVE [facility] Comment on above: Performed By: #### C BC #### [facility] [address] [place] [address] Dr. Travis Sanchez MTD Negative Normal NEGATIVE [facility] Comment on above: Performed By: #### C BC #### [facility] [address] [place] [address] Dr. Travis Sanchez OPI Negative Normal NEGATIVE [facility] Comment on above: Performed By: #### C BC #### [facility] [address] [place] [address] Dr. Travis Sanchez OXY Negative Normal NEGATIVE [facility] Comment on above: Performed By: #### C BC #### [facility] [address] [place] [address] Dr. Travis Sanchez PCP Negative Normal NEGATIVE [facility] Comment on above: Performed By: #### C BC #### [facility] [address] [place] [address] Dr. Travis Sanchez PPX Negative Normal NEGATIVE [facility] Comment on above: Performed By: #### C BC #### [facility] [address] [place] [address] Dr. Travis Sanchez TCA Negative Normal NEGATIVE [facility] Comment on above: Performed By: #### C BC #### [facility] [address] [place] [address] Dr. Travis Sanchez THC Negative Normal NEGATIVE [facility] Comment on above: Performed By: #### C BC #### [facility] [address] [place] [address] Dr. Travis Sanchez ER URINE PROFILEon 3 Bilirubin Ql (U) Negative Normal NEGATIVE [facility] Comment on above: Performed By: #### C BC #### [facility] [address] [place] [address] Dr. Travis Sanchez Clarity (U) CLEAR Normal CLEAR [facility] Comment on above: Performed By: #### C BC #### [facility] [address] [place] [address] Dr. Travis Sanchez Color (U) YELLOW Normal YELLOW [facility] Comment on above: Performed By: #### C BC #### [facility] [address] [place] [address] Dr. Travis Sanchez ERUAHD A micrscopic examination will be performed if indicated. Normal [facility] Comment on above: Performed By: #### C BC #### [facility] [address] [place] [address] Dr. Travis Sanchez Glucose Ql (U) >1000 Abnormal NEGATIVE [facility] Comment on above: Performed By: #### C BC #### [facility] [address] [place] [address] Dr. Travis Sanchez Hemoglobin Ql (U) Negative Normal NEGATIVE [facility] [place] Comment on above: Performed By: #### C BC #### [facility] [address] [place] [address] Dr. Travis Sanchez Ketones Ql (U) TRACE Abnormal NEGATIVE [facility] Comment on above: Performed By: #### C BC #### [facility] [address] [place] [address] Dr. Travis Sanchez LEUKOCYTES Negative Normal NEGATIVE [facility] Comment on above: Performed By: #### C BC #### [facility] [address] [place] [address] Dr. Travis Sanchez Nitrite Ql (U) Negative Normal NEGATIVE [facility] Comment on above: Performed By: #### C BC #### [facility] [address] [place] [address] Dr. Travis Sanchez pH (U) 5.5 [pH] Normal 5-9 [facility] Comment on above: Performed By: #### C BC #### [facility] [address] [place] [address] Dr. Travis Sanchez Protein (U) [Mass/Vol] 100 mg/dL Abnormal NEGAT WILIAN/ TRACE [facility] Comment on above: Performed By: #### C BC #### [facility] [address] [place] [address] Dr. Travis Sanchez SPEC GRAVITY >=1.030 Abnormal 1.005-<=1.0 25 [facility] Comment on above: Performed By: #### C BC #### [facility] [address] [place] [address] Dr. Travis Sanchez UR MICRO IND INDICATED Normal [facility] Comment on above: Performed By: #### C BC #### [facility] [address] [place] [address] Dr. Travis Sanchez Urobilinogen Qn (U) 0.2 {Chintan'U}/dL Normal 0.2 - 1. 0 [facility] Comment on above: Performed By: #### C BC #### [facility] [facility] [address] [place] [address] Dr. Travis Sanchez ETHANOL (BLD ALC)on 04-01-19 23 ALC NOTE NOTE: 80 mg/dl is th e legal limit for a blood alcohol level Normal [facility] Comment on above: Performed By: #### E TH #### [facility] [address] [place] [address] Dr. Travis Sanchez Ethanol [Mass/Vol] mg/dL Normal [facility] Comment on above: Performed By: #### E TH #### [facility] [address] [place] [address] Dr. Travis Sanchez PROF 14(COMP METB)on 023 Albumin [Mass/Vol] 3.5 g/dL Normal 3.4-5.0 [facility] Comment on above: Performed By: #### C VDTBH #### [facility] [address] [place] [address] Dr. Travis Sanchez Albumin/Globulin [Mass ratio] 0.9 {ratio} Normal [facility] Comment on above: Performed By: #### C VDTBH #### [facility] [address] [place] [address] Dr. Travis Sanchez ALP [Catalytic activity/Vol] 98 U/L Normal 46-116 [facility] Comment on above: Performed By: #### C VDTBH #### [facility] [address] [place] [address] Dr. Travis Sanchez ALT [Catalytic activity/Vol] 36 U/L Normal 16-63 [facility] Comment on above: Performed By: #### C VDTBH #### [facility] [address] [place] [address] Dr. Travis Sanchez Anion gap [Moles/Vol] 16.8 mmol/L Normal [facility] Comment on above: Performed By: #### C VDTBH #### [facility] [address] [place] [address] Dr. Travis Sanchez AST [Catalytic activity/Vol] 18 U/L Normal 15-37 [facility] Comment on above: Performed By: #### C VDTBH #### [facility] [address] [place] [address] Dr. Travis Sanchez Bilirubin [Mass/Vol] 0.3 mg/dL Normal 0.2-1.0 [facility] Comment on above: Performed By: #### C VDTBH #### [facility] [address] [place] [address] Dr. Travis Sanchez Calcium [Mass/Vol] 9.1 mg/dL Normal 8.5-10.1 [facility] Comment on above: Performed By: #### C VDTBH #### [facility] [address] [address] [address] Travis Sanchez Chloride [Moles/Vol] 101 mmol/L Normal 98-107 [facility] Comment on above: Performed By: #### C VDTBH #### [facility] [address] [address] [address] Travis Sanchez CO2 [Moles/Vol] 22.1 mmol/L Normal 21.0-32.0 [facility] Comment on above: Performed By: #### C VDTBH #### [facility] [address] [address] [address] Travis Sanchez Creatinine [Mass/Vol] 0.81 mg/dL Normal 0.70-1.30 [facility] Comment on above: Performed By: #### C VDTBH #### [facility] [address] [place] [address] Dr. Travis Sanchez EGFR-AF CITIZEN OF [place] >60 Normal >=60 [facility] Comment on above: Performed By: #### C VDTBH #### [facility] [address] [place] [address] Dr. Travis Sanchez EGFR-NON AF CITIZEN OF [place] >60 Normal >=60 [facility] Comment on above: Performed By: #### C VDTBH #### [facility] [address] [place] [address] Dr. Travis Sanchez Globulin (S) [Mass/Vol] 3.7 g/dL Normal [facility] Comment on above: Performed By: #### C VDTBH #### [facility] [address] [place] [address] Dr. Travis Sanchez Glucose [Mass/Vol] 277 mg/dL Critically high 74-106 [facility] Comment on above: Performed By: #### C VDTBH #### [facility] [address] [place] [address] Dr. Travis Sanchez Potassium [Moles/Vol] 3.9 mmol/L Normal 3.5-5.1 [facility] Comment on above: Performed By: #### C VDTBH #### [facility] [address] [place] [address] Dr. Travis Sanchez Protein [Mass/Vol] 7.2 g/dL Normal 6.4-8.2 [facility] Comment on above: Performed By: #### C VDTBH #### [facility] [address] [place] [address] Dr. Travis Sanchez Sodium [Moles/Vol] 136 mmol/L Normal 136-145 [facility] Comment on above: Performed By: #### C VDTBH #### [facility] [address] [place] [address] Dr. Travis Sanchez Urea nitrogen [Mass/Vol] 11.0 mg/dL Normal 7.0-18.0 [facility] Comment on above: Performed By: #### C VDTBH #### [facility] [address] [place] [address] Dr. Travis Sanchez Urea nitrogen/Creatinine [Mass ratio] 13.6 mg/mg Normal [facility] Comment on above: Performed By: #### C VDTBH #### [facility] [address] [place] [address] Dr. Travis Sanchez SALICYLATEon 04-01-2022 SALICYLATE <2.8 Normal <=19.[address] [facility] Comment on above: Performed By: #### C VDTBH #### [facility] [address] [place] [address] Dr. Travis Sanchez URINE MICROSCOPIC ONLYon BACTERIA SMALL Abnormal NONE SEEN [facility] Comment on above: Performed By: #### C BC #### [facility] [address] [place] [address] Dr. Travis Sanchez Bacteria identified Cx Nom (U) INDICATED Normal [facility] Comment on above: Performed By: #### C BC #### [facility] [address] [place] [address] Dr. Travis Sanchez CAST SEEN Abnormal NONE SEEN [facility] Comment on above: Performed By: #### C BC #### [facility] [address] [place] [address] Dr. Travis Sanchez Crystals LM Nom (Urine sed) NONE SEEN Normal NONE SEEN [facility] Comment on above: Performed By: #### C BC #### [facility] [address] [place] [address] Dr. Travis Sanchez Epithelial cells LM Ql (Urine sed) MODERATE Abnormal NONE SEEN /RARE [facility] Comment on above: Performed By: #### C BC #### [facility] [address] [place] [address] Dr. Travis Sanchez HYALINE CAST RARE Normal [facility] Comment on above: Performed By: #### C BC #### [facility] [address] [place] [address] Dr. Travis Sanchez MUCOUS MODERATE Abnormal NONE SEEN [facility] Comment on above: Performed By: #### C BC #### [facility] [address] [place] [address] Dr. Travis Sanchez RBC 0-2 Normal 0-2 [facility] Comment on above: Performed By: #### C BC #### [facility] [address] [place] [address] Dr. Travis Sanchez WBC 2-5 Abnormal NONE SEEN [facility] Comment on above: Performed By: #### C BC #### [facility] [address] [place] [address] Dr. Travis Sanchez TESTOSTERONE, TOTALon 2022 Testosterone [Mass/Vol] 240 ng/dL Critically low 264-916 [facility] Comment on above: Result Comment: Adul t male reference interval is based on a population of healthy nonobese males (BMI <30) between 19 and 39 years old. mike Prado.al. JCEM 2017,102;6142-7144. PMID: [id number]. Performed By: #### C BC #### [facility] [address] [place] [address] Dr. Travis Sanchez GLYCOHEMOGLOBIN A1Con 2022 ADA RECOMMENDATION SEE BELOW Normal [facility] Comment on above: Result Comment: ADA RECOMMENDED LIMIT 4.0 - 6.0 ADA THERAPEUTIC TARGET < 7.0 ACTION SUGGESTED > 7.0 Performed By: #### C BC #### [facility] [address] [place], [place] [address] Dr. Travis Sanchez Glucose [Mass/Vol] 212 mg/dL Normal [facility] Comment on above: Performed By: #### C BC #### [facility] [address] [place], [place] [address] Dr. Travis Sanchez HbA1c (Bld) [Mass fraction] 9.0 % Critically high 4.5-6.2 [facility] Comment on above: Performed By: #### C BC #### [facility] [address] [place], [place] [address] Dr. Travis Sanchez [facility] Coding Summary.on 02-19-2022 Coding Summary. Normal [facility] CHEMISTRYOrdered By: SYSTEM SYSTEM on 02-16-2022 Anion gap [Moles/Vol] 16 mmol/L Normal 6 - 16 mEq/L [facility] Remisol Chloride [Moles/Vol] 97 mmol/L Low 101 - 1 11 mmol/L [facility] Remisol CO2 [Moles/Vol] 24 mmol/L Normal 21 - 31 mmol/L [facility] Remisol Potassium [Moles/Vol] 4.2 mmol/L Normal 3.5 - 5.3 mmol/L [facility] Remisol Sodium [Moles/Vol] 133 mmol/L Low 135 - 145 mmol/L [facility] Remisol Lyteson 02-16-2022 Anion gap [Moles/Vol] 16 mmol/L Normal 6-16 [facility] Comment on above: Performed By: #### 2 [id number] ####[facility] [address] [place] [address] Chloride [Moles/Vol] 97 mmol/L Low 101-111 [facility] Comment on above: Performed By: #### 2 [id number] ####[facility] [address] [address] CO2 [Moles/Vol] 24 mmol/L Normal 21-31 [facility] Comment on above: Performed By: #### 2 [id number] ####[facility] [address] [address] Potassium [Moles/Vol] 4.2 mmol/L Normal 3.5-5.3 [facility] Comment on above: Performed By: #### 2 [id number] ####[facility] [address] [place] [address] Sodium [Moles/Vol] 133 mmol/L Low 135-145 [facility] Comment on above: Performed By: #### 2 [id number] ####[facility] [address] [place] [address] Patient Educationon 02-17-20 Patient Education Normal [facility] Urology Office/Clinic Noteon 02-16-2022 Urology Office/Clinic Note Normal [facility] Comment on above: Result Comment: Elec tronically Signed By: Patricio CHAKRABORTY MD\.br\Date and Time Signed: 02/16/22 15:06 EST\.br\Electronically Co-Signed By: Germaine Mccain\.br\Date and Time Co-Signed: 02/16/22 15:05 EST Ambulatory Visit Summaryon 1 Ambulatory Visit Summary Normal [facility] Patient Educationon 12-16-19 Patient Education Normal [facility] Reminderson 12-15-2021 Reminders Normal [facility] Comment on above: Other Comment: in er ror Urology Office/Clinic Noteon 12-15-2021 Urology Office/Clinic Note Normal [facility] Comment on above: Result Comment: Elec tronically Signed By: Patricio CHAKRABORTY MD R\.br\Date and Time Signed: 12/15/21 15:50 EDT\.br\Electronically Co-Signed By: Alannah Ragland MA\.br\Date and Time Co-Signed: 12/15/21 15:45 EDT INSULINon 11-14-2021 Insulin 27.9 uIU/mL Critically high 2.6-24.9 [facility] Comment on above: Performed By: #### S EDR #### [facility] [address] [address] [address] Travis Sanchez CBC AUTO DIFFon 11-13-2021 BASO # 0.0 103/ul Normal 0.0-0.1 [facility] Comment on above: Performed By: #### C BC #### [facility] [address] [address] [address] Travis Sanchez Basophils/100 WBC (Bld) 0.5 % Normal 0.2-2.0 [facility] Comment on above: Performed By: #### C BC #### [facility] [address] [place] [address] Dr. Travis Sanchez EO # 0.1 103/ul Normal 0.0-0.7 [facility] Comment on above: Performed By: #### C BC #### [facility] [address] [place] [address] Dr. Travis Sanchez Eosinophils/100 WBC (Bld) 1.8 % Normal 0.9-7.0 [facility] Comment on above: Performed By: #### C BC #### [facility] [address] [place] [address] Dr. Travis Sanchez Erythrocyte distribution width (RBC) [Ratio] 13.7 % Normal 11.0-15.0 [facility] Comment on above: Performed By: #### C BC #### [facility] [address] [place] [address] Dr. Travis Sanchez Hematocrit (Bld) [Volume fraction] 40.9 % Critically low 42.0-54.0 [facility] Comment on above: Performed By: #### C BC #### [facility] [address] [place] [address] Dr. Travis Sanchez Hemoglobin (Bld) [Mass/Vol] 13.7 g/dL Critically low 14.0-18.0 [facility] Comment on above: Performed By: #### C BC #### [facility] [address] [place] [address] Dr. Travis Sanchez IG # 0.04 10e3/ul Critically high 0.00-0.03 [facility] Comment on above: Performed By: #### C BC #### [facility] [address] [place] [address] Dr. Travis Sanchez IG % 0.7 % Critically high 0.0-0.5 [facility] Comment on above: Performed By: #### C BC #### [facility] [address] [place] [address] Dr. Travis Sanchez LYMPH # 1.6 103/ul Normal 1.2-3.8 [facility] Comment on above: Performed By: #### C BC #### [facility] [address] [place] [address] Dr. Travis Sanchez Lymphocytes/100 WBC (Bld) 25.8 % Normal 20.5-60.0 [facility] Comment on above: Performed By: #### C BC #### [facility] [address] [place] [address] Dr. Travis Sanchez MANUAL DIFF REQ NO Normal [facility] Comment on above: Performed By: #### C BC #### [facility] [address] [place] [address] Dr. Travis Sanchez MCH (RBC) [Entitic mass] 30.4 pg Normal 25.9-34.0 [facility] Comment on above: Performed By: #### C BC #### [facility] [address] [place] [address] Dr. Travis Sanchez MCHC (RBC) [Mass/Vol] 33.5 g/dL Normal 29.9-35.2 [facility] Comment on above: Performed By: #### C BC #### [facility] [address] [place] [address] Dr. Travis Sanchez MCV (RBC) [Entitic vol] 90.9 fL Normal 80.0-94.0 [facility] Comment on above: Performed By: #### C BC #### [facility] [address] [place] [address] Dr. Travis Sanchez MONO # 0.4 103/ul Normal 0.3-0.8 [facility] Comment on above: Performed By: #### C BC #### [facility] [address] [place] [address] Dr. Travis Sanchez Monocytes/100 WBC (Bld) 6.4 % Normal 1.7-12.0 [facility] Comment on above: Performed By: #### C BC #### [facility] [address] [address] [address] Travis Sanchez NEUT # 4.0 103/ul Normal 1.4-6.5 [facility] Comment on above: Performed By: #### C BC #### [facility] [address] [address] [address] Travis Sanchez Neutrophils/100 WBC (Bld) 64.8 % Normal 43.0-75.0 [facility] Comment on above: Performed By: #### C BC #### [facility] [address] [address] [address] Travis Sanchez Platelet mean volume (Bld) [Entitic vol] 10.4 fL Normal 9.5-13.5 [facility] Comment on above: Performed By: #### C BC #### [facility] [address] [address] [address] Travis Sanchez PLT 271 103/ul Normal 150-450 [facility] Comment on above: Performed By: #### C BC #### [facility] [address] [address] [address] Travis Sanchez RBC 4.50 106/ul Critically low 4.70-6.10 [facility] Comment on above: Performed By: #### C BC #### [facility] [address] [address] [address] Travis Sanchez WBC 6.1 103/ul Normal 4.0-11.0 [facility] Comment on above: Performed By: #### C BC #### [facility] [address] [address] [address] Travis Sanchez DIRECT LDLon 11-13-2021 Cholesterol in LDL [Mass/Vol] 124 mg/dL Normal [facility] Comment on above: Performed By: #### P SASC #### [facility] [address] [address] [address] Travis Sanchez DLDL NORMAL SEE BELOW Normal [facility] Comment on above: Result Comment: <100 mg/dl OPTIMAL 100 - 129 mg/dl NEAR OR ABOVE OPTIMAL 130 - 159 mg/dl BORDERLINE HIGH 160 - 189 mg/dl HIGH >190 mg/dl VERY HIGH Performed By: #### P SASC #### [facility] [address] [address] [address] Travis Sanchez GLYCOHEMOGLOBIN A1Con 2021 ADA RECOMMENDATION SEE BELOW Normal [facility] Comment on above: Result Comment: ADA RECOMMENDED LIMIT 4.0 - 6.0 ADA THERAPEUTIC TARGET < 7.0 ACTION SUGGESTED > 7.0 Performed By: #### S EDR #### [facility] [address] [address] [address] Travis Sanchez Glucose [Mass/Vol] 223 mg/dL Normal [facility] Comment on above: Performed By: #### S EDR #### [facility] [address] [place] [address] Dr. Travis Sanchez HbA1c (Bld) [Mass fraction] 9.4 % Critically high 4.5-6.2 [facility] Comment on above: Performed By: #### S EDR #### [facility] [address] [address] [address] Travis Sanchez LIPID PROFILEon 11-13-2021 CHOL-HDL RATIO NORM SEE BELOW Normal [facility] Comment on above: Result Comment: 3.3 - 4.4 LOW RISK 4.4 - 7.1 AVERAGE RISK 7.1 - 11.0 MODERATE RISK >11.0 HIGH RISK Performed By: #### C BC #### [facility] [address] [place] [address] Dr. Travis Sanchez Cholesterol [Mass/Vol] 265 mg/dL Critically high <=200 [facility] Comment on above: Performed By: #### C BC #### [facility] [address] [address] [address] Travis Sanchez Cholesterol in HDL [Mass/Vol] 37 mg/dL Critically low 40-60 [facility] Comment on above: Performed By: #### C BC #### [facility] [address] [address] [address] Travis Sanchez Cholesterol.total/Linette sterol in HDL [Mass ratio] 7.2 {ratio} Normal [facility] Comment on above: Performed By: #### C BC #### [facility] [address] [address] [address] Travis Sanchez HDL NORMAL > or = 60 mg/dl - LO W CARDIOVASCULAR RISK <40 mg/dl - HIGH CARDIOVASCULAR RISK Normal [facility] Comment on above: Performed By: #### C BC #### [facility] [address] [address] [address] Travis Sanchez Triglyceride [Mass/Vol] 604 mg/dL Critically high <=150 [facility] Comment on above: Performed By: #### C BC #### [facility] [address] [address] [address] Travis Sanchez VLDL CALC 120.8 mg/dL Normal [facility] Comment on above: Performed By: #### C BC #### [facility] [address] [place] [address] Dr. Travis Sanchez PROF 14(COMP METB)on 022 Albumin [Mass/Vol] 3.8 g/dL Normal 3.4-5.0 [facility] Comment on above: Performed By: #### P SASC #### [facility] [address] [place] [address] Dr. Travis Sanchez Albumin/Globulin [Mass ratio] 1.0 {ratio} Normal [facility] Comment on above: Performed By: #### P SASC #### [facility] [address] [place] [address] Dr. Travis Sanchez ALP [Catalytic activity/Vol] 103 U/L Normal 46-116 [facility] Comment on above: Performed By: #### P SASC #### [facility] [address] [address] [address] Travis Sanchez ALT [Catalytic activity/Vol] 41 U/L Normal 16-63 [facility] Comment on above: Performed By: #### P SASC #### [facility] [address] [place] [address] Dr. Travis Sanchez Anion gap [Moles/Vol] 14.4 mmol/L Normal [facility] Comment on above: Performed By: #### P SASC #### [facility] [address] [address] [address] Travis Sanchez AST [Catalytic activity/Vol] 17 U/L Normal 15-37 [facility] Comment on above: Performed By: #### P SASC #### [facility] [address] [address] [address] Travis Sanchez Bilirubin [Mass/Vol] 0.3 mg/dL Normal 0.2-1.0 [facility] Comment on above: Performed By: #### P SASC #### [facility] [address] [address] [address] Travis Sanchez Calcium [Mass/Vol] 9.1 mg/dL Normal 8.5-10.1 [facility] Comment on above: Performed By: #### P SASC #### [facility] [address] [address] [address] Travis Sanchez Chloride [Moles/Vol] 99 mmol/L Normal 98-107 [facility] Comment on above: Performed By: #### P SASC #### [facility] [address] [address] [address] Travis Sanchez CO2 [Moles/Vol] 25.7 mmol/L Normal 21.0-32.0 [facility] Comment on above: Performed By: #### P SASC #### [facility] [address] [address] [address] Travis Sanchez Creatinine [Mass/Vol] 0.69 mg/dL Critically low 0.70-1.30 [facility] Comment on above: Performed By: #### P SASC #### [facility] [address] [address] [address] Travis Sanchez EGFR-AF CITIZEN [place] >60 Normal >=60 [facility] Comment on above: Performed By: #### P SASC #### [facility] [address] [address] [address] Travis Sanchez EGFR-NON AF CITIZEN [place] >60 Normal >=60 [facility] Comment on above: Performed By: #### P SASC #### [facility] [address] [address] [address] Travis Sanchez Globulin (S) [Mass/Vol] 3.9 g/dL Normal [facility] Comment on above: Performed By: #### P SASC #### [facility] [address] [address] [address] Travis Sanchez Glucose [Mass/Vol] 269 mg/dL Critically high 74-106 [facility] Comment on above: Performed By: #### P SASC #### [facility] [address] [address] [address] Travis Sanchez Potassium [Moles/Vol] 4.1 mmol/L Normal 3.5-5.1 [facility] Comment on above: Performed By: #### P SASC #### [facility] Laboratory [address] [address] [address] Travis Sanchez Protein [Mass/Vol] 7.7 g/dL Normal 6.4-8.2 [facility] Comment on above: Performed By: #### P SASC #### [facility] Laboratory [address] [address] [address] Travis Sanchez Sodium [Moles/Vol] 135 mmol/L Critically low 136-145 [facility] Comment on above: Performed By: #### P SASC #### [facility] Laboratory [address] [address] [address] Travis Sanchez Urea nitrogen [Mass/Vol] 11.0 mg/dL Normal 7.0-18.0 [facility] Comment on above: Performed By: #### P SASC #### [facility] Laboratory [address] [address] [address] Travis Sanchez Urea nitrogen/Creatinine [Mass ratio] 15.9 mg/mg Normal [facility] Comment on above: Performed By: #### P SASC #### [facility] Laboratory [address] [address] [address] Travis Sanchez URIC ACID SERUMon 11-13-2021 Urate [Mass/Vol] 5.5 mg/dL Normal 3.5-7.2 [facility] Comment on above: Performed By: #### C #### [facility] Laboratory [address] [address] [address] 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 Presented to ED on 08/13 and was taken to the OR for scrotal exploration and extensive scrotal debridement. Had scrotal debridment x3 08/13/2021, 08/15/2021 and 08/19/2021. Physical Exam There were no vitals taken for this visit. General: Alert, no acute distress, oriented Lungs: No respiratory distress or pursed lip breathing Psych: Affect and mood normal Abdomen: Estimated body mass index is 48.08 kg/m? as calculated from the following: Height as of 08/13/21: 190.5 cm (6' 3 ). Weight as of 08/29/21: 174.5 kg (384 lb 11.2 oz). Overall healing well, some fibrinous exudate, but swelling down, scrotum soft, stitches removed. Assessment: Post op Plan: - will follow up locally as needed Scribed for Dr. Tahir Dejesus by Goran Nuñez, medical scientific officer, on September 23, 2021 I agree with the Chief Complaint, ROS, and Past Histories independently gathered by the clinical direct support professional home health including scribe and or medical student and or MIGUEL and or resident or fellow and the remaining scribed note accurately describes my personal service to the patient. Tahir Dejesus MD, MS [facility] Referring Provider: SELF [200] Allergies As of Date: 09/23/2021 (No Known Allergies) Date Reviewed: 09/23/2021 Reviewed by: Rell Gallegos MA - Fully Assessed Reason for Visit: Follow Up [171] Primary Visit Diagnosis:Vasectomy status [Z98.52] Prescriptions as of 10/06/2021 - warfarin (COUMADIN) 7.5 mg tablet TAKE 1 TO 1 AND 1/2 TABLETS BY MOUTH DAILY DIRECTED - warfarin (COUMADIN) 5 mg tablet Take 1 tablet by mouth once daily. - LEVEMIR FLEXTOUCH U-100 INSULIN 100 unit/mL (3 mL) injection pen Inject 30 Units subcutaneously once daily. - metFORMIN ER (GLUCOPHAGE XR) 500 mg 24 hr tablet Take 2 tablets by mouth twice daily. - atorvastatin (LIPITOR) 20 mg tablet Take 20 mg by mouth once daily. - buPROPion XL (WELLBUTRIN XL) 150 mg 24 hr tablet Take 150 mg by mouth once daily. - FLUoxetine (PROZAC) 40 mg capsule Take 40 mg by mouth once daily. - insulin detemir U-100 (LEVEMIR) 100 unit/mL (3 mL) injection pen Insulin Detemir U-100 (Levemir Flextouch U-100 Insuln) 100 unit/mL (3 mL) Insulin Pen Active 35 UNITS SUBCUT Daily 0 October 09, 2020 12:11pm - ketoconazole (NIZORAL) 2 % cream APPLY TO AFFECTED AREA 3 TIMES A DAY FOR 7 DAYS - lisinopril (ZESTRIL, PRINIVIL) 20 mg tablet Take 20 mg by mouth once daily. - pantoprazole DR (PROTONIX) 40 mg tablet Take 40 mg by mouth once daily. - tiZANidine (ZANAFLEX) 4 mg tablet Take 4 mg by mouth once daily as needed for pain. 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 Depressive disorder [F32.A] 08/14/2021 Diabetes mellitus (HCC) [E11.9] 10/09/2020 Hypertriglyceridemia [E78.1] 08/14/2021 08/18/2021 Acute pancreatitis [K85.90] 10/25/2020 Personal history of nicotine dependence [Z87.89*10/09/2020 Obstructive sleep apnea [G47.33] 10/09/2020 08/26/2021 Morbid obesity (HCC) [E66.01] 10/09/2020 Contact with and (suspected) exposure to covid-*03/24/2021 COVID [U07.1] 08/14/2021 Hypotension [I95.9] 08/15/2021 08/26/2021 Acute postoperative respiratory insufficiency [*08/15/2021 Acute pain [R52] 08/18/2021 Mild protein-calorie malnutrition (HCC) [E44.1] 08/20/2021 Electrolyte imbalance [E87.8] 08/21/2021 Pulmonary embolism (HCC) [I26.99] 08/22/2021 Fever [R50.9] 08/22/2021 Other chest pain [R07.89] 08/26/2021 08/27/2021 Encounter Status:Closed by HERB TEEKERRI on 10/06/21 Normal [facility] US VENOUS DOPPLER R Fernie US VENOUS DOPPLER R ARM EXAMINATION: US VENOUS DOPPLER R ARM HISTORY: Cellulitis COMPARISON: No relevant comparison available. TECHNIQUE: Grayscale, color and Doppler ultrasound FINDINGS: Region: Right arm Thrombus: No deep vein thrombus. Echogenic thrombus identified in the superficial cephalic vein extending from the distal forearm to the wrist Flow: Decreased and absent flow corresponding to thrombus Compressibility: Noncompressibility corresponding to thrombus Augmentation normal augmentation of the deep vein system IMPRESSION: Occlusive and nonocclusive superficial vein thrombus identified in the cephalic vein from the distal forearm to the wrist, this corresponds to the patient's pain and redness *Exam performed in accordance with [facility] practice guidelines- Peripheral venous ultrasound, June 01, 2009. Electronically authenticated by: ELIUD IRIZARRY Date: 2021-09-01 13:01 Normal [facility] CONSULTon 08-13-2021 CONSULT HNO ID: [id number] Author: Angel Nelson MD Service: Urology Author Type: Resident Type: Consults Filed: 08/13/2021 4:55 PM Note Text: [facility] UROLOGY CONSULT NOTE Service Date: 08/13/2021 Service Time: 4:55 PM ASSESSMENT AND PLAN: 30 year old male with history of DM2, recent vasectomy presenting from [facility] urologist's office with c/f Golden's gangrene. AFVSS in ED. In distress. BG 400. Lactate 1.5. Given non-septic status, can further delineate cause of scrotal swelling with pain, necrotizing infection v. hematoma v. cellulitis. Plan: CT A/P w/ con from diaphragm->knees to assess for possible Golden's gangrene If CT negative, recommend admission to medicine for blood glucose control If CT positive for FD, to OR for exploration Informed consent obtained for surgery Serial scrotal exams Would keep patient NPO for now, mIVF Stringent glucose control COVID, CBC, BMP, coags, T+S Plan of care discussed with chief, Dr. Calderón, and staff, Weight. 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 Patient underwent uncomplicated vasectomy 3 weeks ago. Had scrotal swelling 3-4 days afterwards and then on July 31, presented to local ED for continued scrotal swelling with pain. Was given pain medications and sent home. Patient presented to urologist's office with continued pain today and exam concerning for severe swelling and pain. Patient denies associated nausea, emesis x1 at home, and SOB with this pain. Denies any hematuria or issues voiding at this time. --- No past medical history on file. No past surgical history on file. No family history on file. Social History Tobacco Use - Smoking status: Not on file - Smokeless tobacco: Not on file Substance Use Topics - Alcohol use: Not on file - Drug use: Not on file MEDICATIONS: Prior to Admission Medications: No prescriptions on file. No current facility-administered medications for this encounter. ALLERGIES: Patient has no allergy information on record. COMPLETE REVIEW OF SYSTEMS: GEN: (-)Fevers, weight loss CV: denies chest pain PULM: No cough or difficulty breathing GI: (-)diarrhea or constipation : See HPI HEME: no famhx of abnormal bleeding or bruising SKIN: (-)new rashes ID: (-)recent illness All other relevant ROS reviewed and otherwise negative unless documented above PHYSICAL EXAM: There were no vitals taken for this visit. Gen: In apparent distress, obese Pulmonary: Clear to auscultation bilaterally, symmetric and equal chest rise, tachypneic. Cardiac: Tachycardic, regular rhythm Abdomen: Soft, non-distended, non-tender in all quadrants. No peritoneal signs : Penis: circumcised, w/o plaques, lesions, masses, or deformities. Scrotum edematous and enlarged with induration, edema, no palpable crepitus, exquisitely TTP, could not palpate testicles due to TTP Extremities: No lower extremity edema LABS: Pending IMAGING: Pending Normal [facility] Glucose Glucometer (dC) [M ass/Vol]Ordered By: Segun Cho on 08-10-2021 Glucose [Mass/Vol] 397 mg/dL [facility] Comment on above: Random Glucose Refer ence Range is dependent on time and content of last meal. Glucose of more than 200 mg/dL in a nonstressed, ambulatory subject supports the diagnosis of Diabetes Mellitus. Glucose Poct Glucometerson 0 08-10-2021 Glucose [Mass/Vol] 397 mg/dL Normal [facility] Comment on above: Result Comment: [facility] Glucose Reference Range is dependent on time and content of last meal. Glucose of more than 200 mg/dL in a nonstressed, ambulatory subject supports the diagnosis of Diabetes Mellitus. PERFORMED BY: [facility] [place] [address] PATHOLOGIST REFRACTORY MANAGER JOSSELYN ROSEN M.D. Performed By: #### G LULS #### Point of Care testing , US scrotumon 08-10-2021 US scrotum [facility] Main [id number] Ultrasound Report Signed Patient: Enio Raymond MR#: [id number] : 1990 Acct:[id number] Age/Sex: 30 / M ADM Date: 08/10/21 Loc: ER Room: Type: [facility] Attending Dr: Ordering Provider: Segun Cho MD Date of Service: 08/10/21 US/US scrotum: UROGENITAL COMPLAINTS Copies to: Segun Cho MD SCROTAL ULTRASOUND WITH DUPLEX IMAGING COMPARISON: 07/31/2021 CLINICAL DATA: Testicular pain and swelling for the past 2 weeks. Recent vasectomy. The right testis measures 3.7 x 2.7 x 2.3 cm. The left testis measures 4.6 x 4.7 x 3.0 cm. The testes are normal in echogenicity. There are no developing intratesticular masses. There is demonstration of bilateral duplex and color Doppler testicular blood flow. The epididymal heads are similar in size. There is scrotal wall thickening. There is also heterogeneous mixed echogenicity area superior to the right testis which is a new finding since the previous exam. It measures at least 6.2 x 6.3 x 2.9 cm. There is no prominent hydrocele. Dilated vessels with slow flow are again seen. US/US scrotum IMPRESSION: NO INTRATESTICULAR MASS OR TORSION. SCROTAL SWELLING WITH HETEROGENEOUS MIXED ECHOGENICITY AREA WITHIN THE SOFT TISSUES NEAR THE RIGHT TESTIS. AN INFLAMMATORY PROCESS IS POSSIBLE AND ABSCESS IS NOT EXCLUDED. Impression dictated by: Estrella Chung M.D.08/10/2021 7:04 PM Dictation Location: [address] [address] Tech: Mariana Caban Transcribed By: PAVEL 08/10/211903 Dictated By: Estrella Chung MD 08/10/211899 Signed By: 08/10/211903 [facility] [address] [address] Ultrasound Report Signed Patient: Enio Raymond MR#: [id number] : 1990 Acct:[id number] Age/Sex: 30 / M ADM Date: 07/31/21 Loc: ER Room: Type: [facility] ER Attending Dr: Ordering Provider: Oliver Diehl Jr, MD Date of Service: 07/31/21 US/US scrotum: post vasectomy pain, swelling Copies to: Oliver Diehl Jr, MD Scrotal ultrasound HISTORY: Posterior vasectomy pain. Incision site pain. COMPARISON:None RIGHT testicle measures 3.7 x 2.9 x 2.3 cm. LEFT testicle measures 3.8 x 2.8 x 3.3 cm. No testicular mass or microcalcifications identified. Normal color flow of both testicles identified. RIGHT epididymal head measures 1.6 x 0.5 x 1.8 cm. LEFT epididymal head measures 1.6 x 0.7 x 2.0 cm. Between the testicles are the tubular structure which has hypoechoic material traveling through which may represent slow blood flow. This may correspond with a dilated vessel.. No hydroceles identified. Prominent edematous tissues superior to the RIGHT testicle. US/US scrotum IMPRESSION: Unremarkable testicles and epididymides. Tubular structure between the testicles which has hyperechoic material traveling through it. This is consistent with a dilated vessel with slow blood flow. RIGHT prominent edematous soft tissue changes. Impression dictated by: Gael Agiular M.D.08/01/2021 9:01 AM Dictation Location: [address] [address] Tech: [facility] Transcribed By: [facility] 08/01/21900 Dictated By: Gael Aguilar DO 08/01/21 0830 Signed By: 08/01/21 0901 Normal [facility] Urinalysison 08-01-2021 Appearance (U) Clear Normal Clear [facility] Comment on above: Order Comment: Name Collection Type:: Clean-Voided Midstream Performed By: #### U A ####[facility] [address] [place] [address] [facility] Bilirubin,Urine Negative Normal Negative [facility] Comment on above: Order Comment: Name Collection Type:: Clean-Voided Midstream Performed By: #### U A ####[address] [address] [facility] Color (U) Yellow Normal Yellow [facility] Comment on above: Order Comment: Name Collection Type:: Clean-Voided Midstream Performed By: #### U A ####[address] [address] [facility] Glucose Ql (U) >=1000 High Normal [facility] Comment on above: Order Comment: Name Collection Type:: Clean-Voided Midstream Performed By: #### U A ####[address] [address] [facility] Ketones Ql (U) Trace High Negative [facility] Comment on above: Order Comment: Name Collection Type:: Clean-Voided Midstream Performed By: #### U A ####[address] [address] [facility] Leukocyte esterase Test strip Ql (U) Negative Normal Negative [facility] Comment on above: Order Comment: Name Collection Type:: Clean-Voided Midstream Performed By: #### U A ####[address] [address] [facility] Nitrite,Urine Negative Normal Negative [facility] Comment on above: Order Comment: Name Collection Type:: Clean-Voided Midstream Performed By: #### U A ####[address] [address] [facility] Occult Blood,Urine Negative Normal Negative [facility] Comment on above: Order Comment: Name Collection Type:: Clean-Voided Midstream Result Comment: PERF ORMED BY: [facility] [address] [place] [address] PATHOLOGIST REFRACTORY MANAGER JOSSELYN ROSEN M.D. Performed By: #### U A ####[address] [address] [facility] pH (U) 6.0 [pH] Normal 5.0-9.0 [facility] Comment on above: Order Comment: Name Collection Type:: Clean-Voided Midstream Performed By: #### U A ####[address] [address] [place] [address] [facility] Protein,Urine Negative Normal Negative [facility] Comment on above: Order Comment: Name Collection Type:: Clean-Voided Midstream Performed By: #### U A ####[address] [place] [address] [facility] Specificy [place],Urine 1.038 High 1.001-1.030 [facility] Comment on above: Order Comment: Name Collection Type:: Clean-Voided Midstream Performed By: #### U A ####[facility] [place] [address] [facility] Urobilinogen,Urine Normal Normal Normal [facility] Comment on above: Order Comment: Name Collection Type:: Clean-Voided Midstream Performed By: #### U A ####[address] [place] [address] [facility] Bilirubin Test strip Ql (U)O rdered By: Oliver Diehl on 07-31-2021 Bilirubin Ql (U) Negative Negative [facility] Color Auto (U)Ordered By: Myles Diehl on 07-31-2021 Color (U) Yellow Yellow [facility] Ketones Auto test strip (U) [Mass/Vol]Ordered By: Oliver Diehl on 07-31-2021 Ketones (U) [Mass/Vol] Trace Negative [facility] Nitrite Test strip Ql (U)Ord ered By: Oliver Diehl on 07-31-2021 Nitrite Ql (U) Negative Negative [facility] Protein Auto test strip (U) [Mass/Vol]Ordered By: Oliver Diehl on 07-31-2021 Protein (U) [Mass/Vol] Negative Negative [facility] Specific gravity Auto test s trip (U) [Rel density]Ordered By: Oliver Diehl on 07-31-2021 Specific gravity (U) [Rel density] 1.038 1.001-1.030 [facility] Urine clarity by refractomet ry automatedOrdered By: Oliver Diehl on 07-31-2021 Clarity Refractometry automated (U) Clear Clear [facility] Urine glucose measurement by automated test strip (mass/volume)Ordered By: Oliver Diehl on 07-31-2021 Glucose Auto test strip (U) [Mass/Vol] >=1000 mg/dL Normal [facility] Urine hemoglobin detection b y automated test stripOrdered By: Oliver Diehl on 07-31-2021 Hemoglobin Auto test strip Ql (U) Negative Negative [facility] Urine leukocyte esterase det ection by automated test stripOrdered By: Oliver Diehl on 07-31-2021 Leukocyte esterase Auto test strip Ql (U) Negative Negative [facility] Urobilinogen Auto test strip (U) [Mass/Vol]Ordered By: Oliver Diehl on 07-31-2021 Urobilinogen (U) [Mass/Vol] Normal mg/dL Normal [facility] pH Auto test strip (U)Ordere d By: Oliver Diehl on 07-31-2021 pH (U) 6.0 [pH] 5.0-9.0 [facility] Grey 07-25-2021 L - -------- Specimen: [id number] Received: 07/25/21 Status: NIRAV Jacinto Num: [id number] Spec Type: Surgical Subm Dr: Patricio Chakraborty MD Tissues: A VAS DEFERENS - sterilization (LT) B VAS DEFERENS - sterilization (RT) Procedures: HE Stain/2, Gross/Micro L2/2 -------- Patient Age/Sex Location Account Attending Physician -------- Enio Raymond 30/M [place] [id number] Patricio Chakraborty MD -------- SPEC NUM: [id number] RECD: 07/25/21 STATUS: NIRAV BENNETT NUM: [id number] RACHEL: 07/25/21- [facility] DR: Patricio Chakraborty MD ENTERED: 07/25/[address] [facility] [address]: Dino [facility] SPEC TYPE: Surgical DEPT: S ORDERED: HE Stain/2, Gross/Micro L2/2 ORDERED: HE Stain/2, Gross/Micro L2/2 Pathological Diagnosis A. Left vas deferens, vasectomy: - Complete cross-section of benign vas deferens B. Right vas deferens, vasectomy: - Complete cross-section of benign vas deferens Clinical Information Desires sterilization Gross Description A. Received in 10% neutral buffered formalin, labeled with the patient's name, number and left vas deferens left vas deferens is a 0.8 cm in length x 0.3 cm in diameter tubular tissue fragment, which is submitted in toto to be cut at embedding. Entirely submitted in one cassette labeled A1. (JYOTI/SALINA) B. Received in 10% neutral buffered formalin, labeled with the patient's name, number and right vas deferens is a 1.3 cm in length x 0.3 cm in diameter carter tubular tissue fragment, which is submitted in toto to be cut at embedding. Entirely submitted in one cassette labeled B1. (JYOTI/SALINA) -------- Specimen: Received: 07/25/21 Status: NIRAV Bennett Num: [id number] Spec Type: Surgical Subm Dr: Patricio Chakraborty MD Tissues: A VAS DEFERENS - sterilization (LT) B VAS DEFERENS - sterilization (RT) Procedures: JOSH Stain/2, Gross/Micro L2/2 -------- Patient: Enio Raymond [id number] (Continued) -------- Specimen: Received: 07/25/21 (Continued) Signed (signature on file) Josselyn Rosen MD 07/28/21 1753 -------- Specimen: Received: 07/25/21 Status: NIRAV Bennett Num: [id number] Spec Type: Surgical Subm Dr: Patricio Chakraborty MD Tissues: A VAS DEFERENS - sterilization (LT) B VAS DEFERENS - sterilization (RT) Procedures: HE Stain/2, Gross/Micro L2/2 -------- Patient: Enio Raymond [id number] (Continued) -------- Specimen: [id number] Received: 07/25/21 (Continued) Microscopic Description A. One glass slide with H E stained material has been examined. The microscopic findings support the above pathologic diagnosis. B. One glass slide with H E stained material has been examined. The microscopic findings support the above pathologic diagnosis. [id number] -------- -------- Specimen: [id number] Received: 07/25/21 Status: NIRAV Bennett Num: [id number] Spec Type: Surgical Subm Dr: Patricio Chakraborty MD Tissues: A VAS DEFERENS - sterilization (LT) B VAS DEFERENS - sterilization (RT) Procedures: HE Stain/2, Gross/Micro L2/2 -------- Patient: Enio Raymond [id number] (Continued) -------- Signed (signature on file) Josselyn Rosen MD 07/28/21 9935 [facility] COVID Quick Testingon 2020 Result Negative [employer] Other Covid-19 PCRon 01-21-2021 SARS-CoV-2 (COVID-19) RNA ECTOR+probe Ql (Unsp spec) Not detected [employer] Other Covid-19 PCR [employer] Other Vital Signs Date Time Vital Sign Value Performing Clinician Facility 11-23-2022 11:43-0400 Blood Pressure Location Patricio CHAKRABORTY [facility] 11-23-2022 11:43-0400 Diastolic blood pressure 74 mm[Hg] Patricio CHAKRABORTY [facility] 11-23-2022 11:43-0400 Heart rate 80 /min Patricio CHAKRABORTY [facility] 11-23-2022 11:43-0400 Respiratory rate 16 /min Patricio CHAKRABORTY [facility] 11-23-2022 11:43-0400 Systolic blood pressure 120 mm[Hg] Patricio CHAKRABORTY [facility] 07-13-2022 14:00-0400 Body temperature 97.7 [degF] Ronobir YURIDIA [facility] 07-13-2022 14:00-0400 Diastolic blood pressure 73 mm[Hg] Ronobir YURIDIA [facility] 07-13-2022 14:00-0400 Heart rate 82 /min Ronobir YURIDIA [facility] 07-13-2022 14:00-0400 Respiratory rate 17 /min Ronobir YURIDIA [facility] 07-13-2022 14:00-0400 SaO2% (BldA) [Mass fraction] 95 % Ronobir YURIDIA [facility] 07-13-2022 14:00-0400 Systolic blood pressure 115 mm[Hg] Ronobir YURIDIA [facility] 07-13-2022 12:53-0400 Hourly Rounding Ronobir YURIDIA [facility] 07-13-2022 12:53-0400 Promise to Return Ronobir YURIDIA [facility] 07-13-2022 11:00-0400 gluc 292 mg/dL Ronobir YURIDIA [facility] 07-13-2022 11:00-0400 Hourly Rounding Ronobir YURIDIA [facility] 07-13-2022 11:00-0400 Promise to Return Ronobir YURIDIA [facility] 07-13-2022 10:00-0400 Hourly Rounding Ronobir YURIDIA [facility] 07-13-2022 10:00-0400 Promise to Return Ronobir YURIDIA [facility] 07-13-2022 09:29-0400 Diastolic blood pressure 70 mm[Hg] Ronobir YURIDIA [facility] 07-13-2022 09:29-0400 Systolic blood pressure 108 mm[Hg] Ronobir YURIDIA [facility] 07-13-2022 08:00-0400 Heart rate 77 /min Ronobir YURIDIA [facility] 07-13-2022 08:00-0400 Mean blood pressure 83 mm[Hg] Ronobir YURIDIA [facility] 07-13-2022 08:00-0400 Respiratory rate 18 /min Ronobir YURIDIA [facility] 07-13-2022 08:00-0400 SaO2% (BldA) [Mass fraction] 96 % Ronobir YURIDIA [facility] 07-13-2022 07:00-0400 gluc 238 mg/dL Ronobir YURIDIA [facility] 07-12-2022 20:24-0400 Heart rate 85 /min Ronobir YURIDIA [facility] 07-12-2022 20:23-0400 Mean blood pressure 89 mm[Hg] Ronobir YURIDIA [facility] 07-12-2022 20:23-0400 Body temperature 97.88 [degF] Ronobir YURIDIA [facility] 07-12-2022 17:00-0400 Mean blood pressure 88 mm[Hg] Ronobir YURIDIA [facility] 07-12-2022 17:00-0400 Body temperature 97.52 [degF] Ronobir YURIDIA [facility] 07-12-2022 16:20-0400 Mean blood pressure 93 mm[Hg] Ronobir YURIDIA [facility] 07-12-2022 12:38-0400 Respiratory rate 16 /min Ronobir YURIDIA [facility] 07-12-2022 00:44-0400 Heart rate 105 /min Ronobir YURIDIA [facility] 07-12-2022 00:00-0400 Mean blood pressure 97 mm[Hg] Ronobir YURIDIA [facility] 07-11-2022 23:00-0400 Mean blood pressure 82 mm[Hg] Ronobir YURIDIA [facility] 07-11-2022 20:13-0400 Heart rate 119 /min Ronobir YURIDIA [facility] 07-11-2022 20:10-0400 gluc 317 mg/dL Ronobir YURIDIA [facility] 07-11-2022 20:10-0400 gluc Ronobir YURIDIA [facility] 06-11-2022 08:45-0400 Blood Pressure Location MARIANA BRIGGS [facility] 06-11-2022 08:45-0400 Diastolic blood pressure 82 mm[Hg] MARIANA BRIGGS [facility] 06-11-2022 08:45-0400 Heart rate 88 /min MARIANA BRIGGS [facility] 06-11-2022 08:45-0400 Systolic blood pressure 132 mm[Hg] MARIANA BRIGGS [facility] 04-04-2022 07:30-0500 Body temperature 97.4 [degF] PHYSICIAN NO [facility] 04-04-2022 07:30-0500 Diastolic blood pressure 111 mm[Hg] PHYSICIAN NO [facility] 04-04-2022 07:30-0500 Heart rate 100 /min PHYSICIAN NO [facility] 04-04-2022 07:30-0500 SaO2% (BldA) [Mass fraction] 97 % PHYSICIAN NO [facility] 04-04-2022 07:30-0500 Systolic blood pressure 175 mm[Hg] PHYSICIAN NO [facility] 04-03-2022 20:25-0500 Respiratory rate 16 /min PHYSICIAN NO [facility] 04-02-2022 16:30-0500 Body height 193.04 cm PHYSICIAN NO [facility] 04-01-2022 19:34-0500 Body weight 184.61 kg PHYSICIAN NO [facility] 12-15-2021 14:10-0400 Blood Pressure Location Patricio CHAKRABORTY [facility] 12-15-2021 14:10-0400 Diastolic blood pressure 87 mm[Hg] Patricio CHAKRABORTY [facility] 12-15-2021 14:10-0400 Heart rate 75 /min Patricio CHAKRABORTY [facility] 12-15-2021 14:10-0400 Respiratory rate 16 /min Patricio CHAKRABORTY [facility] 12-15-2021 14:10-0400 Systolic blood pressure 137 mm[Hg] Patricio CHAKRABORTY [facility] 10-06-2021 11:21-0400 Blood Pressure Location Patricio CHAKRABORTY [facility] 10-06-2021 11:21-0400 Diastolic blood pressure 81 mm[Hg] Patricio CHAKRABORTY [facility] 10-06-2021 11:21-0400 Heart rate 104 /min Patricio CHAKRABORTY [facility] 10-06-2021 11:21-0400 Respiratory rate 16 /min Patricio CHAKRABORTY [facility] 10-06-2021 11:21-0400 Systolic blood pressure 125 mm[Hg] Patricio CHAKRABORTY [facility] 08-10-2021 17:39-0400 Body height 190.5 cm Jackelin Hale Work Phone: [facility] 08-10-2021 17:39-0400 Body mass index (BMI) [Ratio] 51 kg/m2 Jackelin Aichholz Work Phone: [facility] 08-10-2021 17:39-0400 Body temperature 98.5 [degF] Jackelin Aichholz Work Phone: [facility] 08-10-2021 17:39-0400 Body weight 185 kg Jackelin Aichholz Work Phone: [facility] 08-10-2021 17:39-0400 Diastolic blood pressure 81 mm[Hg] Jackelin Aichholz Work Phone: [facility] 08-10-2021 17:39-0400 Heart rate 122 /min Jackelin Aichholz Work Phone: [facility] 08-10-2021 17:39-0400 Respiratory rate 23 /min Jackelin Aichholz Work Phone: [facility] 08-10-2021 17:39-0400 SaO2% (BldA) [Mass fraction] 96 % Jackelin Aichholz Work Phone: [facility] 08-10-2021 17:39-0400 Systolic blood pressure 134 mm[Hg] Jackelin Aichholz Work Phone: [facility] 07-31-2021 22:13-0400 Body temperature 98.5 [degF] Jackelin Aichholz Work Phone: [facility] 07-31-2021 22:13-0400 Diastolic blood pressure 109 mm[Hg] Jackelin Aichholz Work Phone: [facility] 07-31-2021 22:13-0400 Heart rate 115 /min Jackelin Aichholz Work Phone: [facility] 07-31-2021 22:13-0400 Respiratory rate 22 /min Jackelin Aichholz Work Phone: [facility] 07-31-2021 22:13-0400 SaO2% (BldA) [Mass fraction] 95 % Jackelin Aichholz Work Phone: [facility] 07-31-2021 22:13-0400 Systolic blood pressure 177 mm[Hg] Jackelin Darlynholz Work Phone: [facility] 07-31-2021 22:12-0400 Body height 190.5 cm Jackelin Warrenhholz Work Phone: [facility] 07-31-2021 22:12-0400 Body mass index (BMI) [Ratio] 51.7 kg/m2 Jackelinkemar Kelleyhholz Work Phone: [facility] 07-31-2021 22:12-0400 Body weight 188 kg Jackelin Santizoholz Work Phone: [facility] 03-24-2021 12:30-0500 Body height 190.5 cm Shruthi Analilia Other [employer] Other 03-24-2021 12:30-0500 Body temperature 96 [degF] Shruthi Analilia Other [employer] Other 03-24-2021 12:30-0500 SaO2% (BldA) [Mass fraction] 98 % Shruthi Analilia Other [employer] Other 01-21-2021 11:15-0500 Body height 190.5 cm Bailey Ginty Other [employer] Other 01-21-2021 11:15-0500 Body mass index (BMI) [Ratio] 49.99 kg/m2 Bailey Ginty Other [employer] Other 01-21-2021 11:15-0500 Body temperature 98.1 [degF] Bailey Ginty Other [employer] Other 01-21-2021 11:15-0500 Body weight 181.44 kg Bailey Guilherme Other [employer] Other 01-21-2021 11:15-0500 SaO2% (BldA) [Mass fraction] 94 % Bailey Vanegas Other [employer] Other Encounters Encounter Date Encounter Type Care Provider Facility Start: 03-29-2023 ambulatory Patricio CHAKRABORTY Facili ty:[facility] Start: 03-29-2023 End: 03-29-2023 Patient encounter procedure Patricio CHAKRABORTY [facility] Start: 11-23-2022 End: 11-24-2022 ambulatory Patricio CHAKRABORTY Facility:[facility] Start: 11-23-2022 End: 11-23-2022 Patient encounter procedure Patricio CHAKRABORTY [facility] [employer] Start: 08-17-2022 End: 08-18-2022 ambulatory Patricio CHAKRABORTY Facility:[facility] Start: 08-04-2022 ambulatory SHRUTHI DÍAZ Facility: Start: 07-14-2022 ambulatory SHRUTHI DÍAZ Facility: Start: 07-11-2022 End: 07-13-2022 ambulatory Wilian SHI Facility:[facility] Start: 07-11-2022 End: 07-13-2022 Observation Wilian SHI [facility] Start: 07-07-2022 End: 07-07-2022 ambulatory SHRUTHI DÍAZ Facility:[facility] Start: 06-25-2022 End: 06-26-2022 ambulatory SHRUTHI DÍAZ Facility:[facility] Start: 06-19-[address] GERTRUDIS PINA . Facili ty:[facility] Start: 06-18-2022 End: 06-19-[address] GERTRUDIS PINA . Facility:[facility] Start: 06-12-2022 End: 06-12-2022 ambulatory GARRISON CELIS . Facility:[facility] Start: 06-11-2022 End: 06-12-2022 ambulatory MARIANA BRIGGS Facility:[facility] Start: 06-11-2022 End: 06-11-2022 Patient encounter procedure MARIANA E CHESTER [facility] [place] Start: 05-23-2022 End: 05-24-2022 ambulatory NOLAN FRANSISCO Facility:[facility] Start: 05-04-2022 ambulatory SHRUTHI DÍAZ Facility: [facility] Start: 04-01-2022 End: 04-04-2022 Evaluation and management of inpatient Dell Kim Facility:[facility] Start: 04-01-2022 End: 04-04-2022 Evaluation and management of inpatient PHYSICIAN MARC [facility] [place] [address] Work Phone: Start: 04-01-2022 End: 04-01-2022 ambulatory LUANN SEYMOUR Facility:[facility] Start: 03-17-2022 End: 03-18-[address] GERTRUDIS PINA . Facility:[facility] Start: 02-16-2022 End: 02-17-2022 ambulatory Patricio CHAKRABORTY Facility:[facility] Start: 02-16-2022 End: 02-16-2022 Lab Drop off Patricio CHAKRABORTY [facility] Start: 02-16-2022 End: 02-17-2022 ambulatory Patricio CHAKRABORTY Facility: [facility] Start: 02-16-2022 End: 02-16-2022 Patient encounter procedure Patricio CHAKRABORTY [facility] Start: 01-06-2022 End: 02-04-2022 ambulatory SHAIKH Patience MOSER Facility:[facility] Start: 12-15-2021 End: 10-11-2022 ambulatory Patricio CHAKRABORTY Facility:[facility] Start: 12-15-2021 End: 12-15-2021 Patient encounter procedure Patricio Vidales CHAKRABORTY [facility] Start: 12-07-2021 End: 01-05-2022 ambulatory SHRUTHI DÍAZ Facility: Start: 11-13-2021 End: 11-14-2021 ambulatory SHRUTHI DÍAZ Facility:[facility] Start: 11-06-2021 End: 12-06-2021 ambulatory SHRUTHI DÍAZ Facility:[facility] Start: 10-28-2021 End: 10-28-2021 Anticoagulant drug monitoring Viktor Gilbert MD Work Phone: Vascular Medicine Comment on above: 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) (Primary Dx); Anticoagulation management encounter Start: 10-28-2021 End: 10-28-2021 Telemedicine consultation with patient Viktor Gilbert MD Work Phone: [facility] Start: 10-09-2021 ambulatory [employer] JACKELIN GEOFFREY Facil ity:[facility] Start: 10-06-2021 End: 10-06-2021 Patient encounter procedure Patricio Vidales CHAKRABORTY [facility] Start: 10-06-2021 End: 11-05-2021 ambulatory Patience SHANTI Facility:[facility] Start: 09-23-2021 End: 09-23-2021 Patient encounter procedure Tahir Dejesus MD Work Phone: Urology Comment on above: Vasectomy status (Pr imary Dx) Start: 09-23-2021 End: 09-24-2021 ambulatory Tahir Dejesus MD Work Phone: Urology Start: 09-10-2021 Telephone encounter [facility] & Comment on above: Returning Patient's Call Start: 09-05-2021 End: 10-03-2021 ambulatory [employer] JACKELIN WARRENPatienceADALI Facility:[facility] Start: 09-02-2021 End: 09-05-2021 ambulatory SHAIKH Patience MOSER Facility:[facility] Start: 09-01-2021 End: 09-02-2021 ambulatory [employer] JACKELIN HALE Facility:[facility] Start: 08-13-2021 End: 08-13-2021 Patient encounter procedure Patricio Sobeida PALMER [facility] [place] Start: 08-10-2021 End: 08-10-2021 Emergency department patient visit PHYSICIAN NO FAMILY Facility:[facility] Start: 08-10-2021 End: 08-10-2021 Emergency department patient visit Jackelin Geoffrey Work Phone: [facility] Start: 08-01-2021 End: 08-01-2021 Emergency department patient visit PHYSICIAN NO FAMILY Facility:[facility] Start: 07-31-2021 End: 07-31-2021 Emergency department patient visit Jackelin Warrenpatienceadali Work Phone: [facility]-Emergency Room Start: 07-25-2021 End: 07-25-2021 ambulatory Patricio Chakraborty Facility:[facility] Start: 07-25-2021 End: 07-25-2021 Departed Referred Jackelin Geoffrey Work Phone: [facility] [place] Start: 03-24-2021 End: 03-24-2021 ambulatory Shruthi Billingsley Other [employer] Other Start: 03-24-2021 Office outpatient vi sit 15 minutes Shruthi Billingsley [facility] Start: 01-23-2021 End: 01-23-2021 ambulatory Bailey Ginty Other [employer] Other Start: 01-23-2021 Telephone encounter Bailey Ginty [facility] Start: 01-21-2021 End: 01-21-2021 ambulatory Bailey Ginty Other [facility] [employer] Other Start: 01-21-2021 Office outpatient vi sit 15 minutes Bailey Vanegas [facility] Procedures Date Procedure Procedure Detail Performing Clinician Start: 11-13-2021 PSA screening NOE HALE Comment on above: Performed By: #### P [facility] #### [facility] [address] [place] [address] Dr. Travis Sanchez Start: 08-13-2021 H/O: vasectomy Patricio CHAKRABORTY Start: 08-10-2021 Echography of scrotu m and contents Jackelin Hale Work Phone: Start: 07-31-2021 Echography of scrotu m and contents Jackelin Hale Work Phone: Start: 07-25-2021 Vasectomy Patricio TA H/O: vasectomy Status post vasectomy( Confirmed ) Patricio CHAKRABORTY H/O: vasectomy Vasectomy status Tee Dejesus MD Work Phone: Knee joint operation Patricio CHAKRABORTY Tooth and periodonti um operation Patricio CHAKRABORTY Plan of Treatment Date Care Activity Detail Author Start: 04-04-2022 [facility] Start: 04-01-2022 Referral to Database Management System Specialist [facility] Start: 04-01-2022 Hospital admission [facility] Start: 11-06-2021 Influenza vaccination INFLUENZA (#1) [facility] Start: 07-31-2021 Echography of scrotu m and contents US scrotum [facility] Start: 12-14-2007 HEPATITIS B (1 of 3 - Risk 3-dose series) HEPATITIS B (1 of 3 - Risk 3-dose series) [facility] Start: 12-14-2007 Urine microalbumin profile DTAP,TDAP,TD (1 - Tdap) [facility] Start: 2006 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 ANNUAL PCP TEAM CHRONIC DISEASE VISIT [facility] Start: 2006 Hepatitis B surface antibody level LDL CHOLESTEROL [facility] Start: 2006 HEPATITIS C SCREENING HEPATITIS C SC REENING [facility] Start: 2006 HIV SCREENING HIV SCREENING [facility] Start: 1998 3 comp foot exam completed DIABETIC FOOT EXAM [facility] Start: 1998 Hepatitis B screening URINE AL BUMIN:CREATININE RATIO [facility] Start: 1998 Hepatitis C antibody , confirmatory test DILATED RETINAL EXAM [facility] Start: 1994 PNEUMOCOCCAL (1 - PCV) PNEUMOCOCCAL (1 - PCV) [facility] Start: 1993 Hemoglobin A1c/Hemoglobin.total in Blood HBA1C [facility] Start: 06-13-1989 COVID-19 VACCINE (#1) COVID-19 VACCI NE (#1) [facility] Start: 1988 HEPATITIS B (1 of 3 - 3-dose series) HEPATITIS B (1 of 3 - 3-dose series) [facility] Patient Education [facility] Work Phone: Patient referral [facility] Work Phone: URINALYSIS, REFLEX MICROSCOPIC URINALYSIS, REFLEX MICROSCOPIC Lab Routine Screening for genitourinary condition Ordered: 09/23/2021 [facility] Work Phone: Comment on above: Ordered: 09/23/2021 [facility] Immunizations Immunization Date Immunization Notes Care Provider Salima eason 03-16-2006 tetanus toxoid, redu sindy diphtheria toxoid, and acellular pertussis vaccine, adsorbed MARIANA CHESTER [facility] 07-19-2001 measles, mumps and rubella virus vaccine MARIANA CHESTER [facility] 10-28-1994 DTaP, unspecified formulation MARIANA CHESTER [facility] 06-24-1990 Hib, unspecified formulation MARIANA CHESTER [facility] 03-18-1990 Hib, unspecified formulation MARIANA BRIGGS [facility] 03-18-1990 measles, mumps and rubella virus vaccine MARIANA BRIGGS [facility] Payers Date Payer Category Payer Medicaid [place] [employer] [place] [employer] [id number] 2019-Present [phone] [address] [place] [id number] Medicaid [id number] 2019 Medicaid [place] [employer] [id number] 2019-Present [phone] [address] [place] [address] Medicaid [id number] 1988 Unknown [id number] 2.16.840.1.046717.3.579.2.5 93 1988 Unknown [id number] 2.16.840.1.444176.3.579.2.5 93 1988 Unknown [id number] 2.16.840.1.177500.3.579.2.5 93 1988 Unknown [id number] 2.16.840.1.460916.3.579.2.5 93 1988 Unknown [id number] 2.16.840.1.271904.3.579.2.5 93 1988 Unknown [id number] 2.16.840.1.779036.3.579.2.5 93 1988 Unknown [id number] 2.16.840.1.628877.3.579.2.5 93 1988 Unknown [id number] 2.16.840.1.292701.3.579.2.5 93 1988 Unknown [id number] 2.16.840.1.931751.3.579.2.5 93 1988 Unknown [id number] 2.16.840.1.350631.3.579.2.5 93 1988 Unknown [id number] 2.16.840.1.186638.3.579.2.5 93 1988 Unknown [id number] 2.16.840.1.782249.3.579.2.5 93 1988 Unknown [id number] 2.16.840.1.694885.3.579.2.5 93 1988 Unknown [id number] 2.16.840.1.557167.3.579.2.5 93 1988 Unknown [id number] 2.16.840.1.844297.3.579.2.5 93 1988 Unknown [id number] 2.16.840.1.626827.3.579.2.5 93 1988 Unknown [id number] 2.16.840.1.047334.3.579.2.5 93 1988 Unknown [id number] 2.16.840.1.425522.3.579.2.5 93 1988 Unknown [id number] 2.16.840.1.898164.3.579.2.5 93 1988 Unknown [id number] 2.16.840.1.819471.3.579.2.5 93 1988 Unknown [id number] 2.16.840.1.326495.3.579.2.5 93 1988 Unknown [id number] 2.16.840.1.593179.3.579.2.7 27 1988 Unknown [id number] 2.16.840.1.661049.3.579.2.7 27 1988 Unknown [id number] 2.16.840.1.825141.3.579.2.7 27 1988 Unknown [id number] 2.16.840.1.352154.3.579.2.7 27 1988 Unknown [id number] 2.16.840.1.304093.3.579.2.7 27 1988 Unknown [id number] 2.16.840.1.937148.3.579.2.7 27 1988 Unknown [id number] 2.16.840.1.722563.3.579.2.7 27 1988 Unknown [id number] 2.16.840.1.849587.3.579.2.7 27 1959 Medicaid [id number] Self-pay [id number] Unknown [place] BC/BS [id number] Unknown [id number] 2.16.840.1.701538.19 Unknown [id number] 2.16.840.1.032966.3.579.2.5 31 Unknown [id number] 2.16.840.1.270103.3.579.2.5 31 Unknown [id number] 2.16.840.1.718595.3.579.2.5 31 Unknown [id number] 2.16.840.1.466366.3.579.2.5 31 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 [employer] [facility] [id number] Social History Date Type Detail Facility [facility]: [facility]06-[facility] Start: 10-07-2003 End: 10-06-2020 History of tobacco use [facility] Other Start: 1990 Sex Assigned At Male F [facility] Start: 06-09-2021 End: 02-16-2022 Tobacco smoking status Light tobacco smoker (finding) [facility] Tobacco smoking status Smokeless tobacco user within last 30 days [facility] Start: 07-31-2021 End: 04-02-2022 Tobacco smoking status NHIS Smoker (finding) [facility] Start: 08-13-2021 [facility] History of tobacco use Cigarette Smoker [facility] Start: 08-13-2021 Cigarettes smoked current (pack per day) - Reported 0.5 [facility] Start: 08-18-2021 End: 10-30-2021 Alcohol intake Lifetime non-drinker (finding) [facility] Start: 08-13-2021 History SDOH Alcohol Frequency 1 [facility] Start: 1990 Sex Assigned At Not on file [facility] Start: 08-18-2021 End: 09-23-2021 Exposure to SARS-CoV-2 (event) Not sure [facility] Start: 10-07-2021 End: 10-17-2021 Exposure to SARS-CoV-2 (event) Unable to assess [facility] Start: 11-23-2022 Tobacco smoking status Never s moked tobacco (finding) [facility] Goals Date Patient Goal Desired Activity /State Functional Status Date Assessment Result Facility 11-23-2022 Functional Status N/A [facility] 07-12-2022 Functional Status No [facility] 07-11-2022 Functional Status [facility] 06-11-2022 Functional Status N/A [facility] 04-04-2022 Functional status Patient at Baseline [facility] Work Phone: 02-16-2022 Functional Status N/A [facility] 12-15-2021 Functional Status N/A [facility] 10-06-2021 Functional Status N/A [facility] Mental Status Date Assessment Result Facility 04-04-2022 Cognitive function Cognitive Sta tus Patient at Baseline [facility] Work Phone: Clinical Notes 01-21-2021 to 11-23-2022 Note Date & Type Note Facility 11-23-2022 Hospital Discharg e instructions Patient Education 11/23/2022 12:58:10 Hypogonadism, Male Hypogonadism, Male Male hypogonadism is a condition of having a level of testosterone that is lower than normal. Testosterone is a chemical, or hormone, that is made mainly in the testicles. In boys, testosterone is responsible for the development of male characteristics during puberty. These include: Making the penis bigger. Growing and building the muscles. Growing facial hair. Deepening the voice. In adult men, testosterone is responsible for maintaining: An interest in sex and the ability to have sex. Muscle mass. Sperm production. Red blood cell production. Bone strength. Testosterone also gives men energy and a sense of well-being. Testosterone normally decreases as men age and the testicles make less testosterone. Testosterone levels can vary from man to man. Not all men will have signs and symptoms of low testosterone. Weight, alcohol use, medicines, and certain medical conditions can affect a man's testosterone level. What are the causes? This condition is caused by: A natural decrease in testosterone that occurs as a man grows older. This is the main cause of this condition. Use of medicines, such as antidepressants, steroids, and opioids. Diseases and conditions that affect the testicles or the making of testosterone. These include: ?Injury or damage to the testicles from trauma, cancer, cancer treatment, or infection. ?Diabetes. ?Sleep apnea. ?Genetic conditions that men are born with. ?Disease of the pituitary gland. This gland is in the brain. It produces hormones. ?Obesity. ?Metabolic syndrome. This is a group of diseases that affect blood pressure, blood sugar, cholesterol, and belly fat. ?HIV or AIDS. ?Alcohol abuse. ?Kidney failure. ?Other long-term or chronic diseases. What are the signs or symptoms? Common symptoms of this condition include: Loss of interest in sex (low sex drive). Inability to have or maintain an erection (erectile dysfunction). Feeling tired (fatigue). Mood changes, like irritability or depression. Loss of muscle and body hair. Infertility. Large breasts. Weight gain (obesity). How is this diagnosed? Your health care provider can diagnose hypogonadism based on: Your signs and symptoms. A physical exam to check your testosterone levels. This includes blood tests. Testosterone levels can change throughout the day. Levels are highest in the morning. You may need to have repeat blood tests before getting a diagnosis of hypogonadism. Depending on your medical history and test results, your health care provider may also do other tests to find the cause of low testosterone. How is this treated? This condition is treated with testosterone replacement therapy. Testosterone can be given by: Injection or through pellets inserted under the skin. Gels or patches placed on the skin or in the mouth. Testosterone therapy is not for everyone. It has risks and side effects. Your health care provider will consider your medical history, your risk for prostate cancer, your age, and your symptoms before putting you on testosterone replacement therapy. Follow these instructions at home: Take upzw-adg-kcvbbhh and prescription medicines only as told by your health care provider. Eat foods that are high in fiber, such as beans, whole grains, and fresh fruits and vegetables. Limit foods that are high in fat and processed sugars, such as fried or sweet foods. If you drink alcohol: ?Limit how much you have to 0 2 drinks a day. ?Know how much alcohol is in your drink. In the [place] one drink equals one 12 oz bottle of beer (355 mL), one 5 oz glass of wine (148 mL), or one 1 oz glass of hard liquor (44 mL). Return to your normal activities as told by your health care provider. Ask your health care provider what activities are safe for you. Keep all follow-up visits. This is important. Contact a health care provider if: You have any of the signs or symptoms of low testosterone. You have any side effects from testosterone therapy. Summary Male hypogonadism is a condition of having a level of testosterone that is lower than normal. The natural drop in testosterone production that occurs with age is the most common cause of this condition. Low testosterone can also be caused by many diseases and conditions that affect the testicles and the making of testosterone. This condition is treated with testosterone replacement therapy. There are risks and side effects of testosterone therapy. Your health care provider will consider your age, medical history, symptoms, and risks for prostate cancer before putting you on testosterone therapy. This information is not intended to replace advice given to you by your health care provider. Make sure you discuss any questions you have with your health care provider. Document Revised: 10/24/2020 Document Reviewed: 10/24/2020 [employer] Patient Education 2022 [employer]. 11/23/2022 12:46:35 Overactive Bladder, Adult Overactive Bladder, Adult Overactive bladder is a condition in which a person has a sudden and frequent need to urinate. A person might also leak urine if he or she cannot get to the bathroom fast enough (urinary incontinence). Sometimes, symptoms can interfere with work or social activities. What are the causes? Overactive bladder is associated with poor nerve signals between your bladder and your brain. Your bladder may get the signal to empty before it is full. You may also have very sensitive muscles that make your bladder squeeze too soon. This condition may also be caused by other factors, such as: Medical conditions: ?Urinary tract infection. ?Infection of nearby tissues. ?Prostate enlargement. ?Bladder stones, inflammation, or tumors. ?Diabetes. ?Muscle or nerve weakness, especially from these conditions: ?A spinal cord injury. ?Stroke. ?Multiple sclerosis. ?Parkinson's disease. Other causes: ?Surgery on the uterus or urethra. ?Drinking too much caffeine or alcohol. ?Certain medicines, especially those that eliminate extra fluid in the body (diuretics). ?Constipation. What increases the risk? You may be at greater risk for overactive bladder if you: Are an older adult. Smoke. Are going through menopause. Have prostate problems. Have a neurological disease, such as stroke, dementia, Parkinson's disease, or multiple sclerosis (MS). Eat or drink alcohol, spicy food, caffeine, and other things that irritate the bladder. Are overweight or obese. What are the signs or symptoms? Symptoms of this condition include a sudden, strong urge to urinate. Other symptoms include: Leaking urine. Urinating 8 or more times a day. Waking up to urinate 2 or more times overnight. How is this diagnosed? This condition may be diagnosed based on: Your symptoms and medical history. A physical exam. Blood or urine tests to check for possible causes, such as infection. You may also need to see a health care provider who specializes in urinary tract problems. This is called a urologist. How is this treated? Treatment for overactive bladder depends on the cause of your condition and whether it is mild or severe. Treatment may include: Bladder training, such as: ?Learning to control the urge to urinate by following a schedule to urinate at regular intervals. ?Doing Kegel exercises to strengthen the pelvic floor muscles that support your bladder. Special devices, such as: ?Biofeedback. This uses sensors to help you become aware of your body's signals. ?Electrical stimulation. This uses electrodes placed inside the body (implanted) or outside the body. These electrodes send gentle pulses of electricity to strengthen the nerves or muscles that control the bladder. ?Women may use a plastic device, called a pessary, that fits into the vagina and supports the bladder. Medicines, such as: ?Antibiotics to treat bladder infection. ?Antispasmodics to stop the bladder from releasing urine at the wrong time. ?Tricyclic antidepressants to relax bladder muscles. ?Injections of botulinum toxin type A directly into the bladder tissue to relax bladder muscles. Surgery, such as: ?A device may be implanted to help manage the nerve signals that control urination. ?An electrode may be implanted to stimulate electrical signals in the bladder. ?A procedure may be done to change the shape of the bladder. This is done only in very severe cases. Follow these instructions at home: Eating and drinking Make diet or lifestyle changes recommended by your health care provider. These may include: ?Drinking fluids throughout the day and not only with meals. ?Cutting down on caffeine or alcohol. ?Eating a healthy and balanced diet to prevent constipation. This may include: ?Choosing foods that are high in fiber, such as beans, whole grains, and fresh fruits and vegetables. ?Limiting foods that are high in fat and processed sugars, such as fried and sweet foods. Lifestyle Lose weight if needed. Do not use any products that contain nicotine or tobacco. These include cigarettes, chewing tobacco, and vaping devices, such as e-cigarettes. If you need help quitting, ask your health care provider. General instructions Take vsfx-dof-eyrgoja and prescription medicines only as told by your health care provider. If you were prescribed an antibiotic medicine, take it as told by your health care provider. Do not stop taking the antibiotic even if you start to feel better. Use any implants or pessary as told by your health care provider. If needed, wear pads to absorb urine leakage. Keep a log to track how much and when you drink, and when you need to urinate. This will help your health care provider monitor your condition. Keep all follow-up visits. This is important. Contact a health care provider if: You have a fever or chills. Your symptoms do not get better with treatment. Your pain and discomfort get worse. You have more frequent urges to urinate. Get help right away if: You are not able to control your bladder. Summary Overactive bladder refers to a condition in which a person has a sudden and frequent need to urinate. Several conditions may lead to an overactive bladder. Treatment for overactive bladder depends on the cause and severity of your condition. Making lifestyle changes, doing Kegel exercises, keeping a log, and taking medicines can help with this condition. This information is not intended to replace advice given to you by your health care provider. Make sure you discuss any questions you have with your health care provider. Document Revised: 11/11/2020 Document Reviewed: 11/11/2020 [employer] Patient Education 2022 [employer]. Follow Up Care 08/17/2022 11:49:19 With:PALMER TORREZ, Patricio Vidales, URL Address: [facility] [address], [place] [address] [phone] When: Unknown Comments:sched brain MRI [facility] 07-13-2022 Evaluation + Plan note Extrac thuy from: Title:Discharge Note Author:RENALDO TORREZ, Parvin Ventura ate:07/13/22 Discharge To, Anticipated II - Home independently Discharged to - Home independently Discharge Diet(s): Calorie Controlled- 1800 Calorie Diet (07/13/22 10:03:00) Prescriptions Bactrim D.S. 800 mg-160 mg Tab, 160 mg, Oral, BID DDAVP 0.2 mg oral tablet, 0.2 mg= 1 tab(s), Oral, Bedtime, 3 refills Vesicare 10 mg Tab, 10 mg= 1 tab(s), Oral, Daily, 11 refills Home aripiprazole 5 mg Tab baclofen 10 mg Tab, 10 mg= 1 tab(s), Oral, TID, PRN buPROPion 300 mg XL /24 hrs, Oral, q24hr FLUoxetine 40 mg Cap, Oral, Daily Levemir, SubCutaneous lisinopril 20 mg Tab, Oral, Daily metformin 1000 mg oral tablet, Oral, BID Pantoprazole [address] Tab, Oral, Daily, Still taking, not as prescribed: takes as needed With When Contact Information SHRUTHI DÍAZ Within 3 to [address] [place] [address] [phone] Business (1) Additional Instructions: Call for followup appointment Hypotension, Lmcc-aj-Kcsr Urinary Tract Infection, Adult Extracted from: Title:Admission H & P Author:Wilian SHI DO Date:07/12/22 1. Syncope (R55: Syncope and collapse) Unclear cause. Patient did have an elevated D-dimer. He states he has had sick contacts recently. I am concerned for possibility of COVID-19. We will send PCR and place patient on COVID precautions. Will fluid resuscitate patient as ordered below. 2. Hypoxia (R09.02: Hypoxemia) Again high clinical suspicion for COVID-19 PCR pending. Oxygen as needed. We will start patient on dexamethasone 6 mg IV x1 dose now. Then dexamethasone 6 mg p.o. daily. We will also start patient Paxlovid because of the hypoxia. Pulmonary toilet as ordered - duo-nebs q6hrs and alb neb q2hrs prn, Tessalon Perles as needed. CTA chest negative for central PE or acute disease. Timing of IV contrast not optimal therefore unable to exclude peripheral PE. 3. Acute UTI (N39.0: Urinary tract infection, site not specified) Rocephin 1 g IV every 24 hours 4. Central sleep apnea (G47.31: Primary central sleep apnea) Oxygen overnight. Patient noncompliant with CPAP 5. Enuresis (R32: Unspecified urinary incontinence) Will order oxybutynin while patient is in hospital. Vesicare and oral DDAVP nonformulary. 6. Depression (F32.A: Depression, unspecified) Resume home medications once reconciled. 7. Diabetes (E11.9: Type 2 diabetes mellitus without complications) Sliding scale insulin. Diabetic diet. Continue home metformin dose 8. GERD (gastroesophageal reflux disease) (K21.9: Gastro-esophageal reflux disease without esophagitis) Continue Protonix 9. On deep vein thrombosis (DVT) prophylaxis (Z79.899: Other care home (current) drug therapy) SCD, enoxaparin Orders: acetaminophen, 650 mg = 2 tab(s), Tab, Oral, q6hr PRN Pain, Routine, Start date 07/12/22 2:51:00 EDT, 07/12/22 2:51:00 EDT albuterol, 2.5 mg, 3 mL, Soln-Inh, Inhalation, q2hr PRN Shortness of breath or wheezing, Routine, Start date 07/12/22 2:52:00 EDT albuterol-ipratropium, 3 mL, Soln-Inh, Inhalation, QID, Routine, Start date 07/12/22 8:00:00 EDT aripiprazole, 5 mg = 1 tab(s), Tab, Oral, Daily, Routine, Start date 07/12/22 9:00:00 EDT, 07/12/22 1:21:00 EDT benzonatate, 100 mg = 1 cap(s), Cap, Oral, TID PRN Cough, Routine, Start date 07/12/22 2:52:00 EDT, 07/12/22 2:52:00 EDT buPROPion, 300 mg = 1 tab(s), Tab-ER, Oral, Daily, Routine, Start date 07/12/22 9:00:00 EDT, 07/12/22 1:23:00 EDT ceftriaxone + Sodium Chloride 0.9% intravenous solution 50 mL, 1,000 mg = 1 EA, IV Piggyback, q24hr, Routine, Start date 07/13/22 0:00:00 EDT, 100 mL/hr, Infuse over 30 minute(s), 07/13/22 0:00:00 EDT dexamethasone, 6 mg = 1.5 tab(s), Tab, Oral, Daily for 30 day(s), Stop date 08/11/22 8:59:00 EDT, Routine, Start date 07/12/22 9:00:00 EDT, 07/12/22 2:48:00 EDT dexamethasone, 6 mg = 1.5 mL, Injection, IV Push, Once, Stop date 07/12/22 3:00:00 EDT, Routine, Start date 07/12/22 3:00:00 EDT, 07/12/22 2:48:00 EDT diphenhydrAMINE, 25 mg = 1 cap(s), Cap, Oral, q6hr PRN Itching, Routine, Start date 07/12/22 2:51:00 EDT, 07/12/22 2:51:00 EDT enoxaparin, 40 mg = 0.4 mL, Injection, SubCutaneous, Daily, Routine, Start date 07/12/22 9:00:00 EDT, 07/12/22 2:51:00 EDT fluoxetine, 40 mg = 2 cap(s), Cap, Oral, Daily, Routine, Start date 07/12/22 9:00:00 EDT, 07/12/22 1:23:00 EDT glucose, 50 mL, Soln-IV, IV Push, Once PRN Blood glucose, Routine, Start date 07/12/22 2:50:00 EDT hydrALAZINE, 10 mg = 0.5 mL, Injection, IV Push, q6hr PRN Other (see comment), Routine, Start date 07/12/22 2:51:00 EDT, 07/12/22 2:51:00 EDT insulin lispro, 0-10 Units, Injection-Insulin, SubCutaneous, QIDACHS, Routine, Start date 07/12/22 7:30:00 EDT lisinopril, 20 mg = 1 tab(s), Tab, Oral, Daily, Routine, Start date 07/12/22 9:00:00 EDT, 07/12/22 1:24:00 EDT melatonin, 9 mg = 3 tab(s), Tab, Oral, Bedtime PRN Insomnia for 30 day(s), Stop date 08/11/22 2:47:00 EDT, Routine, Start date 07/12/22 2:48:00 EDT, 07/12/22 2:48:00 EDT metformin, 500 mg = 1 tab(s), Tab, Oral, BID, Routine, Start date 07/12/22 9:00:00 EDT, 07/12/22 1:24:00 EDT nirmatrelvir-ritonavir, 1 EA, Oral, BID, Routine, Start date 07/12/22 9:00:00 EDT ondansetron, 4 mg = 2 mL, Injection, IV Push, q6hr PRN Nausea, Routine, Start date 07/12/22 2:51:00 EDT, 07/12/22 2:51:00 EDT oxybutynin, 10 mg = 2 tab(s), Tab-ER, Oral, Daily, Routine, Start date 07/12/22 9:00:00 EDT, 07/12/22 1:25:00 EDT pantoprazole, 40 mg = 1 tab(s), Tab-DR, Oral, Daily PRN Dyspepsia, Routine, Start date 07/12/22 1:25:00 EDT promethazine, 12.5 mg = 0.5 mL, Injection, IV Push, q6hr PRN Nausea, Routine, Start date 07/12/22 2:51:00 EDT, 07/12/22 2:51:00 EDT Sodium Chloride 0.9% intravenous solution, 1,000 mL, Soln-IV, IV, Once, Stop date 07/12/22 4:00:00 EDT, Routine, Start date 07/12/22 4:00:00 EDT, Infuse over 61, minute(s) Sodium Chloride 0.9% intravenous solution 1,000 mL, 1,000 mL, IV, 75 mL/hr, Routine, Start date 07/12/22 2:51:00 EDT, 13.3 hour(s), Total volume (mL): 1,000, 181.4 kg, 3.12, m2 Ambulate with Assistance Below the Knee Intermittent Pneumatic Compression Device C-Reactive Protein Cardiac Monitoring COVID-19 ([facility]) Diabetic/Calorie Control Diet Ferritin Hypoglycemia Protocol Responsive Patient Hypoglycemia Protocol Unresponsive Patient Intake and Output Isolation Precautions Lactate Dehydrogenase Notify Provider Vital Signs Notify Provider Vital Signs Oxygen Protocol Place in Status Precautions Procalcitonin Resuscitation Status - Full Routine Capillary Glucose POC Weight Anticipated stay less than 2 midnights. Patient will be observation status. Extracted from: Title:ED Note Author:Marietta Guerrero DO Date :07/11/22 Hypoxia (R09.02: Hypoxemia) Syncope (R55: Syncope and collapse) Transient hypotension (I95.9: Hypotension, unspecified) Orders: ceftriaxone + Sodium Chloride 0.9% intravenous solution 50 mL, 1,000 mg = 1 EA, IV Piggyback, Once, Stop date 07/11/22 23:26:00 EDT, STAT, Start date 07/11/22 23:26:00 EDT, 100 mL/hr, Infuse over 30 minute(s), 07/11/22 23:26:00 EDT ondansetron, 4 mg = 2 mL, Injection, IV Push, Once, Stop date 07/11/22 20:12:00 EDT, STAT, Start date 07/11/22 20:12:00 EDT, 07/11/22 20:12:00 EDT Sodium Chloride 0.9% intravenous solution, 1,000 mL, Soln-IV, IV, Once, Stop date 07/11/22 20:12:00 EDT, STAT, Start date 07/11/22 20:12:00 EDT, Infuse over 61, minute(s) Automated Diff Basic Metabolic Panel CBC w/ Auto Diff CT Head or Brain w/o Contrast CT Spine Cervical w/o Contrast CTA Chest D-Dimer ECG 12 Lead Adult ED Cardiac Monitoring ED Physician consult Hospitalist for continued care eGFR Hepatic Function Panel Influenza A&B Ag Magnesium Level Mononucleosis Screen Oxygen Saturation PT & PTT Rapid COVID Antigen ([facility]) Saline Lock Insert Troponin 0 Hr. Troponin 3 Hr. Troponin 6 Hr. Troponin 9 Hr. UA With Cult Reflex Urine Culture Future Appointments Appointment Date:08/17/2022 10:30:00 AM Scheduled Provider:Patricio CHAKRABORTY MD Location:[facility] Appointment Type:URO Office Visit Future Scheduled Tests Laboratory* Semen Analysis Post Vasectomy 10/06/21 * Semen Analysis Post Vasectomy 10/06/21 [facility]:Result Comment: Electronically Signed By: RENALDO TORREZ, Parvin\.br\Date and Time Signed: 07/13/22 10:19 [id number] Hospital Discharge instructions Patient Education 07/13/2022 10:17:27 Hypotension, Oppz-lu-Pxur Hypotension As your heart beats, it forces blood through your body. This force is called blood pressure. If youhave hypotension, you have low blood pressure. When your blood pressure is too low, you may not get enough blood to your brain or other parts of your body. This may cause you to feel weak, light-headed, have a fast heartbeat, or even faint. Low blood pressure may be harmless, or it may cause serious problems. What are the causes? Blood loss. Not enough water in the body (dehydration). Heart problems. Hormone problems. . A very bad infection. Not having enough of certain nutrients. Very bad allergic reactions. Certain medicines. What increases the risk? Age. The risk increases as you get older. Conditions that affect the heart or the brain and spinal cord (central nervous system). What are the signs or symptoms? Feeling: ?Weak. ?Light-headed. ?Dizzy. ?Tired (fatigued). Blurred vision. Fast heartbeat. Fainting, in very bad cases. How is this treated? Changing your diet. This may involve drinking more water or including more salt (sodium) in your diet by eating high-salt foods. Taking medicines to raise your blood pressure. Changing how much you take (the dosage) of some of your medicines. Wearing compression stockings. These stockings help to prevent blood clots and reduce swelling in your legs. In some cases, you may need to go to the hospital to: Receive fluids through an IV tube. Receive donated blood through an IV tube (transfusion). Get treated for an infection or heart problems, if this applies. Be monitored while medicines that you are taking wear off. Follow these instructions at home: Eating and drinking Drink enough fluids to keep your pee (urine) pale yellow. Eat a healthy diet. Follow instructions from your doctor about what you can eat or drink. A healthydiet includes: ?Fresh fruits and vegetables. ?Whole grains. ?Low-fat (lean) meats. ?Low-fat dairy products. If told, include more salt in your diet. Do not add extra salt to your diet unless your doctor tells you to. Eat small meals often. Avoid standing up quickly after you eat. Medicines Take rbjm-utr-auonhdq and prescription medicines only as told by your doctor. ?Follow instructions from your doctor about changing how much you take of your medicines, if this applies. ?Do not stop or change any of your medicines on your own. General instructions Wear compression stockings as told by your doctor. Get up slowly from lying down or sitting. Avoid hot showers and a lot of heat as told by your doctor. Return to your normal activities when your doctor says that it is safe. Do not smoke or use any products that contain nicotine or tobacco. If you need help quitting, ask your doctor. Keep all follow-up visits. Contact a doctor if: You vomit. You have watery poop (diarrhea). You have a fever for more than 2 3 days. You feel more thirsty than normal. You feel weak and tired. Get help right away if: You have chest pain. You have a fast or uneven heartbeat. You lose feeling (have numbness) in any part of your body. You cannot move your arms or your legs. You have trouble talking. You get sweaty or feel light-headed. You faint. You have trouble breathing. You have trouble staying awake. You feel mixed up (confused). These symptoms may be an emergency. Get help right away. Call 911. Do not wait to see if the symptoms will go away. Do not drive yourself to the hospital. Summary Hypotension is also called low blood pressure. It is when the force of blood pumping through your body is too weak. Hypotension may be harmless, or it may cause serious problems. Treatment may include changing your diet and medicines, and wearing compression stockings. In very bad cases, you may need to go to the hospital. This information is not intended to replace advice given to you by your health care provider. Make sure you discuss any questions you have with your health care provider. Document Revised: 10/13/2021 Document Reviewed: 10/13/2021 [employer] Patient Education 2022 [employer]. 07/13/2022 10:17:23 Urinary Tract Infection, Adult Urinary Tract Infection, Adult A urinary tract infection (UTI) is an infection of any part of the urinary tract. The urinary tractincludes the kidneys, ureters, bladder, and urethra. These organs make, store, and get rid of urinein the body. An upper UTI affects the ureters and kidneys. A lower UTI affects the bladder and urethra. What are the causes? Most urinary tract infections are caused by bacteria in your genital area around your urethra, where urine leaves your body. These bacteria grow and cause inflammation of your urinary tract. What increases the risk? You are more likely to develop this condition if: You have a urinary catheter that stays in place. You are not able to control when you urinate or have a bowel movement (incontinence). You are female and you: ?Use a spermicide or diaphragm for control. ?Have low estrogen levels. ?Are . You have certain genes that increase your risk. You are sexually active. You take antibiotic medicines. You have a condition that causes your flow of urine to slow down, such as: ?An enlarged prostate, if you are male. ?Blockage in your urethra. ?A kidney stone. ?A nerve condition that affects your bladder control (neurogenic bladder). ?Not getting enough to drink, or not urinating often. You have certain medical conditions, such as: ?Diabetes. ?A weak disease-fighting system (immunesystem). ?Sickle cell disease. ?Gout. ?Spinal cord injury. What are the signs or symptoms? Symptoms of this condition include: Needing to urinate right away (urgency). Frequent urination. This may include small amounts of urine each time you urinate. Pain or burning with urination. Blood in the urine. Urine that smells bad or unusual. Trouble urinating. Cloudy urine. Vaginal discharge, if you are female. Pain in the abdomen or the lower back. You may also have: Vomiting or a decreased appetite. Confusion. Irritability or tiredness. A fever or chills. Diarrhea. The first symptom in older adults may be confusion. In some cases, they may not have any symptoms until the infection has worsened. How is this diagnosed? This condition is diagnosed based on your medical history and a physical exam. You may also have other tests, including: Urine tests. Blood tests. Tests for STIs (sexually transmitted infections). If you have had more than one UTI, a cystoscopy or imaging studies may be done to determine the cause of the infections. How is this treated? Treatment for this condition includes: Antibiotic medicine. Mzyz-mnf-wnjtwqj medicines to treat discomfort. Drinking enough water to stay hydrated. If you have frequent infections or have other conditions such as a kidney stone, you may need to see a health care provider who specializes in the urinary tract (urologist). In rare cases, urinary tract infections can cause sepsis. Sepsis is a life- threatening condition that occurs when the body responds to an infection. Sepsis is treated in the hospital with IV antibiotics, fluids, and other medicines. Follow these instructions at home: Medicines Take kgkx-vmy-vkdtzcr and prescription medicines only as told by your health care provider. If you were prescribed an antibiotic medicine, take it as told by your health care provider. Do notstop using the antibiotic even if you start to feel better. General instructions Make sure you: ?Empty your bladder often and completely. Do not hold urine for long periods of time. ?Empty your bladder after sex. ?Wipe from front to back after urinating or having a bowel movement if you are female. Use each tissue only one time when you wipe. Drink enough fluid to keep your urine pale yellow. Keep all follow-up visits. This is important. Contact a health care provider if: Your symptoms do not get better after 1 2 days. Your symptoms go away and then return. Get help right away if: You have severe pain in your back or your lower abdomen. You have a fever or chills. You have nausea or vomiting. Summary A urinary tract infection (UTI) is an infection of any part of the urinary tract, which includes the kidneys, ureters, bladder, and urethra. Most urinary tract infections are caused by bacteria in your genital area. Treatment for this condition often includes antibiotic medicines. If you were prescribed an antibiotic medicine, take it as told by your health care provider. Do notstop using the antibiotic even if you start to feel better. Keep all follow-up visits. This is important. This information is not intended to replace advice given to you by your health care provider. Make sure you discuss any questions you have with your health care provider. Document Revised: 10/04/2020 Document Reviewed: 10/04/2020 [employer] Patient Education 2022 [place]. Follow Up Care 07/11/2022 20:06:03 With:SHRUTHI DÍAZ Address: [address] [place] [phone] Business (1) When:07/17/2022 15:15:00 Comments:Call for followup appointment [facility]05-07-2023 [facility] [place]Comment on above:Result Comment: Electronically Signed By: Wilian SHI DO\Date and Time Signed: 07/12/22 03:16 [id number] NoteCONSULTATION CONSULTATION DATE: 06/25/2022 TO: Shruthi Díaz CNP CHIEF COMPLAINT: Includes severe lower back pain, right leg pain. HISTORY OF PRESENT ILLNESS: Review of systems, past medical/surgical history were obtained and documented on the health questionnaire and is available upon request. He is a 31-year-old male who reports having had sudden onset pain in her lower back, radiating to his thigh, his right lower extremity, starting approximately two months ago. It occurred spontaneously and increased rapidly to its present state, where he complains of 5-7/10 pain, sharp in character, increased with activities such as sitting. He feels most comfortable standing or laying in the semi-recumbent position. He denies any change in bowel and bladder habits and reports progressive weakness in his right lower extremity. EXAM: Notable for the patient having very mild weakness in his right lower extremity, mainly his right EHL. He has an equivocally depressed right Achilles reflex. Straight leg raise is positive, approximately 45 degrees. He had no clinical myelopathy involving his lower extremities, though he has had hypoesthesia along the right L5 dermatome. IMPRESSION: Patient appears to have pain secondary to L4-5 disc displacement with right L5 radicular component, myofascial spasm. RECOMMENDATIONS: I have asked him to discontinue gabapentin secondary to its ineffectiveness. We will trial him on Zonegran 100 mg to 200 mg at bedtime as tolerated. I have given him 10 pills of [place] to trial and to have available for severe pain, 5 mg pills, 1-2 b.i.d., not for daily use and these are to last him one month's time. I have placed him on baclofen 10 mg pills, 1-2 t.i.d. Will obtain urine toxicology screen on today's visit. He did report the use of Percocet did not help him to any significant degree. I have also recommended an L4-5 lumbar epidural steroid injection under fluoroscopic guidance. As part of providing excellent, safe, comprehensive care, the following was completed at our patient's visit: 1. A medication reconciliation and review to ensure accurate knowledge of current/active medications, including asking our patients to inform us about any rppk-cvf-zvmtivk medications or herbal remedies/nutritional supplements/alternative remedies. 2. A review to specifically ensure our patients have had annual screening for: elevated body mass index (BMI, see intake chart for exact total), tobacco use, screening for depression, and screening for unhealthy alcohol use. When screening is concerning, patients are provided with education and the specific recommendation to discuss the concerning health issue and treatment options with their primary care provider.[id number] Discharge instructions Patient Education 06/11/2022 08:51:48 Overactive Bladder, Adult Overactive Bladder, Adult Overactive bladder refers to a condition in which a person has a sudden need to pass urine. The person may leak urine if he or she cannot get to the bathroom fast enough (urinary incontinence). A person with this condition may also wake up several times in the night to go to the bathroom. Overactive bladder is associated with poor nerve signals between your bladder and your brain. Your bladder may get the signal to empty before it is full. You may also have very sensitive muscles thatmake your bladder squeeze too soon. These symptoms might interfere with daily work or social activities. What are the causes? This condition may be associated with or caused by: Urinary tract infection. Infection of nearby tissues, such as the prostate. Prostate enlargement. Surgery on the uterus or urethra. Bladder stones, inflammation, or tumors. Drinking too much caffeine or alcohol. Certain medicines, especially medicines that get rid of extra fluid in the body (diuretics). Muscle or nerve weakness, especially from: ?A spinal cord injury. ?Stroke. ?Multiple sclerosis. ?Parkinson's disease. Diabetes. Constipation. What increases the risk? You may be at greater risk for overactive bladder if you: Are an older adult. Smoke. Are going through menopause. Have prostate problems. Have a neurological disease, such as stroke, dementia, Parkinson's disease, or multiple sclerosis (MS). Eat or drink things that irritate the bladder. These include alcohol, spicy food, and caffeine. Are overweight or obese. What are the signs or symptoms? Symptoms of this condition include: Sudden, strong urge to urinate. Leaking urine. Urinating 8 or more times a day. Waking up to urinate 2 or more times a night. How is this diagnosed? Your health care provider may suspect overactive bladder based on your symptoms. He or she will diagnose this condition by: A physical exam and medical history. Blood or urine tests. You might need bladder or urine tests to help determine what is causing your overactive bladder. You might also need to see a health care provider who specializes in urinary tract problems (urologist). How is this treated? Treatment for overactive bladder depends on the cause of your condition and whether it is mild or severe. You can also make lifestyle changes at home. Options include: Bladder training. This may include: ?Learning to control the urge to urinate by following a schedule that directs you to urinate at regular intervals (timed voiding). ?Doing Kegel exercises to strengthen your pelvic floor muscles, which support your bladder. Toning these muscles can help you control urination, even if your bladder muscles are overactive. Special devices. This may include: ?Biofeedback, which uses sensors to help you become aware of your body's signals. ?Electrical stimulation, which uses electrodes placed inside the body (implanted) or outside the body. These electrodes send gentle pulses of electricity to strengthen the nerves or muscles that control the bladder. ?Women may use a plastic device that fits into the vagina and supports the bladder (pessary). Medicines. ?Antibiotics to treat bladder infection. ?Antispasmodics to stop the bladder from releasing urine at the wrong time. ?Tricyclic antidepressants to relax bladder muscles. ?Injections of botulinum toxin type A directly into the bladder tissue to relax bladder muscles. Lifestyle changes. This may include: ?Weight loss. Talk to your health care provider about weight loss methods that would work best for you. ?Diet changes. This may include reducing how much alcohol and caffeine you consume, or drinking fluids at different times of the day. ?Not smoking. Do not use any products that contain nicotine or tobacco, such as cigarettes and e-cigarettes. If you need help quitting, ask your health care provider. Surgery. ?A device may be implanted to help manage the nerve signals that control urination. ?An electrode may be implanted to stimulate electrical signals in the bladder. ?A procedure may be done to change the shape of the bladder. This is done only in very severe cases. Follow these instructions at home: Lifestyle Make any diet or lifestyle changes that are recommended by your health care provider. These may include: ?Drinking less fluid or drinking fluids at different times of the day. ?Cutting down on caffeine or alcohol. ?Doing Kegel exercises. ?Losing weight if needed. ?Eating a healthy and balanced diet to prevent constipation. This may include: ?Eating foods that are high in fiber, such as fresh fruits and vegetables, whole grains, and beans. ?Limiting foods that are high in fat and processed sugars, such as fried and sweet foods. General instructions Take wvee-mhb-rlhwpfc and prescription medicines only as told by your health care provider. If you were prescribed an antibiotic medicine, take it as told by your health care provider. Do notstop taking the antibiotic even if you start to feel better. Use any implants or pessary as told by your health care provider. If needed, wear pads to absorb urine leakage. Keep a journal or log to track how much and when you drink and when you feel the need to urinate. This will help your health care provider monitor your condition. Keep all follow-up visits as told by your health care provider. This is important. Contact a health care provider if: You have a fever. Your symptoms do not get better with treatment. Your pain and discomfort get worse. You have more frequent urges to urinate. Get help right away if: You are not able to control your bladder. Summary Overactive bladder refers to a condition in which a person has a sudden need to pass urine. Several conditions may lead to an overactive bladder. Treatment for overactive bladder depends on the cause and severity of your condition. Follow your health care provider's instructions about lifestyle changes, doing Kegel exercises, keeping a journal, and taking medicines. This information is not intended to replace advice given to you by your health care provider. Make sure you discuss any questions you have with your health care provider. Document Released: 12/19/2009 Document Revised: 06/15/2019 Document Reviewed: 03/10/2018 [employer] Patient Education 2020 [place]. Follow Up Care 06/04/2022 15:50:17 With:MARIANA BRIGGS PA-C, URL Address: [address] [place] [address] [phone] When: Unknown [facility] 01-28-2023 Discharge summary Author Dell Kim [facility] April 04, 2022 11:32am Note Date/Time April 04, 2022 1 1:30am [facility] [address] [place] [id number] Discharge Summary Signed Patient: Enio Raymond MR#: [id number] : 1990 Acct:[id number] Age/Sex: 31 / M Adm Date: 3 Loc: 1S Room: 7C7564-[address]: Dell Kim MD Copies to: Dell Kim MD NO FAMILY PHYSICIAN~ Providers Date of Discharge: 04/04/22 Discharging Provider: Dell Kim Primary Care Provider: PHYSICIAN NO FAMILY Consults: 04/01/22 19:46 Consult to Case Management Routine 04/01/22 19:50 Consult to Dietitian Routine Discharge Diagnosis (1) Depression: Final Diagnosis Final Discharge Diagnosis: MDD PTSD Summary Hospital Course Hospital course: According to admission: Mr. Raymond is a 31 year old male who presented to concern for depression and suicidal ideation. Upon assessment, patient reported that he was watching a show with his which triggered thoughts from his past.? He does report that his son when he was 1 years old.? He stated that he did not want to deal with things and havethoughts of suicide.? He stated that things were going on for a couple months and were worsening over the past few days.? He stated that his plan would be to overdose on medications.? He reported depressive symptoms of sleep issues, appetite issues, anhedonia and low energy.? He denied any hallucinations and denied any symptoms of shelly. 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 The doses were increased during his hospitalization. He had gradual improvement of his symptoms of depression as time went on. He did not report any other suicidal thoughts. He did not exhibit any behavior concerning for suicidality. As symptoms improved he becamebrighter and attended groups. He was able to laugh and smile more on the unit as well. His came to visit him during his hospitalization. She stated that she also noticed an improvement. She stated that he is not someone that can hide how he is feeling and felt that he was doing better. On the day of discharge, patient reported that he was doing better. He denied any depression or suicidality. He was tolerating his medications and was comfortable dischargeplan home and following up with outpatient services. Patient's also statedthat she would ensure that patient follows up with outpatient services and will call for appointments. Time spent discussing smoking cessation with patient: 3 to 10 minutes Condition Condition at Discharge: Stable Status at Discharge Cognitive/behavioral status at discharge: Mental Status Exam: Appearance: grossly normal Mental Status: mental status grossly normal Mood: Euthymic mood Affect: Normal affect Speech and Movement: speech and movement normal and speech clear Attitude: cooperative Thought Process: normal Thought Content: Denied hallucinations, no homicidality and no suicidality Insight: Good Judgment: Good Functional status at discharge: independent ambulation Overall status at discharge: patient is back to baseline Time Spent with Patient Time spent providing/coordinating discharge services (# min): 30 Diagnostic Studies Completed and Pending Studies Labs on day of discharge: 04/04/22 06:29: POC Glucose 144 Exam Physical Exam Vital Signs: Temp Pulse Resp BP Pulse Ox O2 Del Method 97.4 F L 100 H 16 175/111 H 97 Room Air 04/04/22 07:30 04/04/22 07:30 04/03/22 20:25 04/04/22 07:30 04/04/22 07:30 04/04/22 07:30 Discharge Plan Discharge Plan Patient Disposition: Home Activity: No Activity Restriction Diet: Regular Prescriptions: New aripiprazole 10 mg Tablet 10 mg PO DAILY 14 Days Qty: 14 1RF bupropion HCl 450 mg tablet extended release 24 hr 450 mg PO QAM Qty: 14 1RF fluoxetine 40 mg capsule 80 mg PO DAILY 14 Days Qty: 28 1RF nicotine (polacrilex) 2 mg Gum 2 mg buccal Q2H PRN (Reason: Nicotine Cravings) Qty: 60 0RF Continued lisinopril 20 mg tablet 10 mg PO DAILY Patient Comments: TAKE 1 TABLET BY MOUTH EVERY DAY metformin 500 mg tablet extended release 24 hr 1,000 mg PO BID Patient Comments: TAKE 2 TABLETS BY MOUTH TWICE A DAY Levemir FlexTouch U-100 Insuln 100 unit/mL (3 mL) insulin pen 50 units subcut BID.AM.HS solifenacin [Vesicare] 10 mg Tablet 10 mg PO DAILY Rx Instructions: Takes at hs testosterone 100 mg/mL Suspension 100 mg IM Q2W Rx Instructions: Takes every 2 weeks.First dose on 2022 Discontinued fluoxetine [Prozac] 20 mg capsule 60 mg PO DAILY Patient Comments: TAKE 1 CAPSULE BY MOUTH EVERY DAY bupropion HCl [Wellbutrin XL] 150 mg Tablet Extended Release 24 Hr 300 mg PO QAM aripiprazole [Abilify] 5 mg Tablet 5 mg PO DAILY Follow Up: [facility] [Other] (Psychiatry: with Dr. Biggs Therapy: ) [facility] Hotline [Outside] Shruthi Díaz NP-C [Referring] - Documented By: Dell Kim MD 04/04/22 112 Signed By: <Electronically signed by Dell Kim MD> 04/04/22 1132 [facility] Work Phone: 1(563) 772-581201-27-2023 Progress note Author Dell Kim [facility] April 03, 2022 1:47pm Note Date/Time April 03, 2022 1 :47pm [facility] [address] [place] [address] Psychiatry Progress Note Signed Patient: Enio Raymond MR#: [id number] : 1990 Acct:[id number] Age/Sex: 31 / M Adm Date: 3 Loc: Room: [address] [place] [address] Type : ADM IN Attending Dr: Dell Kim MD Copies to: ~ Date of Service: 04/03/2022 Subjective Subjective Narrative: Mr. Raymond reported that he is doing good. He reported that he feels a bit betterthan when he first came in. He reported that he is less anxious and he has had no negative thoughts. Denied any current suicidal thoughts. He stated that he has been attending groups as well. Mental Status Exam: Appearance: grossly normal Mental Status: mental status grossly normal Mood: Improving mood Affect: Improving affect Speech and Movement: speech and movement normal and speech clear Attitude: cooperative Thought Process: normal Thought Content: Denied hallucinations, no homicidality, improving suicidality Insight: fair Judgment: fair Exam Physical Exam Vital Signs: Temp Pulse Resp BP Pulse Ox O2 Del Method 97.5 F L 99 H 16 129/89 97 Room Air 04/03/22 07:30 04/03/22 07:30 04/02/22 20:23 04/03/22 08:47 04/03/22 07:30 04/03/22 07:30 Assessment/Plan Assessment/Plan (1) Depression: Code(s): F32.9 - Major depressive disorder, single episode, unspecified Status: Acute Plan Patient doing a little bit better at this time and stated that suicidal thoughtshave been improving Continue Abilify 10 mg, Prozac 80 mg and Wellbutrin 450 mg Continue to monitor mental status Encourage group participation and medication compliance Risk benefits alternatives explained Documented By: Dell Kim MD 04/03/226 Signed By: <Electronically signed by Dell Kim MD> 04/03/227 [facility] Work Phone: 1(730) 425-942701-26-2023 History and physical note Author Dell Kim [facility] April 02, 2022 1:07pm Note Date/Time April 02, 2022 1 :03pm [facility] [address] [place] [address] Psychiatry H&P Signed Patient: Enio Raymond MR#: [id number] : 1990 Acct:[id number] Age/Sex: 31 / M Adm Date: 3 Loc: Room: [address] [place] [address] Type: ADM IN Attending Dr: Dell Kim MD Copies to: Dell Kim MD NO FAMILY PHYSICIAN~ Date of Service: 04/02/2022 HPI History of Present Illness History of present illness: Mr. Raymond is a 31 year old male who presented to concern for depression and suicidal ideation. Upon assessment, patient reported that he was watching a show with his which triggered thoughts from his past. He does report that his son when hewas 1 years old. He stated that he did not want to deal with things and have thoughts of suicide. He stated that things were going on for a couple months and were worsening over the past few days. He stated that his plan would be to overdose on medications. He reported depressive symptoms of sleep issues, appetite issues, anhedonia and low energy. He denied any hallucinations and denied any symptoms of shelly. 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 Review of symptoms: Constitutional: Denies chills and Denies fever(s) Eyes: Denies change in vision ENT: Denies abnormal hearing Cardiovascular: Denies chest pain Respiratory: Denies chest congestion and Denies cough Gastrointestinal: Denies change in bowel habits Genitourinary: Denies dysuria Musculoskeletal: Denies atrophy and Denies myalgias Integumentary/Breasts: Denies dry skin Neurologic: Denies abnormal gait and Denies abnormal movements Psychiatric: Reports depression and suicidal ideation Physical exam: Const: cooperative Nutritional Appearance: average body habitus Orientation: alert, awake and oriented x3 HEENT: Head normal to inspection, hearing grossly normal bilaterally, external nose normal, face symmetric Eyes: appearance normal, both eyes and all related structures, sclerae normal Neck: normal visual inspection and full ROM Resp: normal respiratory effort, able to speak in complete sentences and symmetric chest movement Cardio: regular rate GI: normal to inspection and non-distended : deferred Skin: no rashes or lesions noted Neuro: CNII: Visual chavis intact, CNIII,IV,: EOM intact, no nystagmus. Pupilsequal, round, reactive to light and accommodation, CNV: Sensation intact to light touch, CNVII: Raises eyebrows, smile/frown, puff out cheeks symmetrically, CNVIII: Hearing intact bilaterally, CNIX,X: Voice normal, soft palate elevation normal, symmetrical, CNXI: Shoulder shrug strong, equal bilaterally, CNXII: Tongue protrusion midline, movement symmetrical. Extrem: normal to inspection and full ROM Mental Status Exam: Appearance: grossly normal Mental Status: mental status grossly normal Mood: dysthymic mood Affect: dysphoric affect Speech and Movement: speech and movement normal and speech clear Attitude: cooperative Thought Process: normal Thought Content: Denied hallucinations, no homicidality, reported suicidality Insight: fair Judgment: fair PMFSH Vaccinated for COVID-19?: No Medical History (Updated 08/10/21 @ 19:30 by Segun Cho MD) Depression Diabetes Hyperlipidemia Hypertension Morbid (severe) obesity due to excess calories Pancreatitis Surgical History (Updated 07/31/21 @ 22:12 by Laine Kent RN) History of arthroscopy of both knees History of vasectomy Family History (Updated 04/01/22 @ 19:32 by Monica Schreiber RN) Father Bipolar disorder Brother Bipolar disorder Social History Smoking Status: Current every day smoker Tobacco Type: smokeless tobacco Substance Use Type: None Social History Comments: Lives with and daughter Meds Medications and Allergies Allergies No Known Allergies Allergy (Verified 08/10/21 17:40) Home Medications fluoxetine 20 mg capsule (Prozac) 60 mg PO DAILY 10/05/20 [History Confirmed 04/01/22] lisinopril 20 mg tablet 10 mg PO DAILY 10/05/20 [History Confirmed 04/01/22] metformin 500 mg tablet,extended release 24 hr 1,000 mg PO BID 10/05/20 [History Confirmed 04/02/22] bupropion HCl 150 mg 24 hr tablet, extended release (Wellbutrin XL) 300 mg PO QAM 10/07/20 [History Confirmed 04/01/22] aripiprazole 5 mg tablet (Abilify) 5 mg PO DAILY 04/01/22 [History Confirmed 04/01/22] insulin detemir U-100 100 unit/mL (3 mL) subcutaneous pen (Levemir FlexTouch U- 100 Insulin) 50 units subcut BID.AM.HS 04/01/22 [History Confirmed 04/01/22] solifenacin 10 mg tablet (Vesicare) 10 mg PO DAILY 04/01/22 [History Confirmed 04/01/22] testosterone 100 mg/mL intramuscular suspension 100 mg IM Q2W 04/01/22 [History Confirmed 04/01/22] Exam Physical Exam Vital Signs: Temp Pulse Resp BP Pulse Ox O2 Del Method 97.3 F L 81 18 127/86 95 Room Air 04/02/22 07:30 04/02/22 07:30 04/02/22 07:30 04/02/22 07:30 04/02/22 07:30 04/02/22 07:30 Assessment/Plan (1) Depression: Code(s): F32.9 - Major depressive disorder, single episode, unspecified Status: Acute Plan Patient presenting due to concern for depression and suicidal ideation with thoughts of overdose Increase Abilify 10 mg, Prozac 80 mg and Wellbutrin 450 mg Continue to monitor mental status Encourage group participation and medication compliance Risk benefits alternatives explained Documented By: Dell Kim MD 04/02/22 1301 Signed By: <Electronically signed by Dell Kim MD> 04/02/22 1307 [facility] Work Phone: [phone] Hospital Discharge instructions Patient Education 02/16/2022 08:54:53 Overactive Bladder, Adult Overactive Bladder, Adult Overactive bladder refers to a condition in which a person has a sudden need to pass urine. The person may leak urine if he or she cannot get to the bathroom fast enough (urinary incontinence). A person with this condition may also wake up several times in the night to go to the bathroom. Overactive bladder is associated with poor nerve signals between your bladder and your brain. Your bladder may get the signal to empty before it is full. You may also have very sensitive muscles thatmake your bladder squeeze too soon. These symptoms might interfere with daily work or social activities. What are the causes? This condition may be associated with or caused by: Urinary tract infection. Infection of nearby tissues, such as the prostate. Prostate enlargement. Surgery on the uterus or urethra. Bladder stones, inflammation, or tumors. Drinking too much caffeine or alcohol. Certain medicines, especially medicines that get rid of extra fluid in the body (diuretics). Muscle or nerve weakness, especially from: ?A spinal cord injury. ?Stroke. ?Multiple sclerosis. ?Parkinson's disease. Diabetes. Constipation. What increases the risk? You may be at greater risk for overactive bladder if you: Are an older adult. Smoke. Are going through menopause. Have prostate problems. Have a neurological disease, such as stroke, dementia, Parkinson's disease, or multiple sclerosis (MS). Eat or drink things that irritate the bladder. These include alcohol, spicy food, and caffeine. Are overweight or obese. What are the signs or symptoms? Symptoms of this condition include: Sudden, strong urge to urinate. Leaking urine. Urinating 8 or more times a day. Waking up to urinate 2 or more times a night. How is this diagnosed? Your health care provider may suspect overactive bladder based on your symptoms. He or she will diagnose this condition by: A physical exam and medical history. Blood or urine tests. You might need bladder or urine tests to help determine what is causing your overactive bladder. You might also need to see a health care provider who specializes in urinary tract problems (urologist). How is this treated? Treatment for overactive bladder depends on the cause of your condition and whether it is mild or severe. You can also make lifestyle changes at home. Options include: Bladder training. This may include: ?Learning to control the urge to urinate by following a schedule that directs you to urinate at regular intervals (timed voiding). ?Doing Kegel exercises to strengthen your pelvic floor muscles, which support your bladder. Toning these muscles can help you control urination, even if your bladder muscles are overactive. Special devices. This may include: ?Biofeedback, which uses sensors to help you become aware of your body's signals. ?Electrical stimulation, which uses electrodes placed inside the body (implanted) or outside the body. These electrodes send gentle pulses of electricity to strengthen the nerves or muscles that control the bladder. ?Women may use a plastic device that fits into the vagina and supports the bladder (pessary). Medicines. ?Antibiotics to treat bladder infection. ?Antispasmodics to stop the bladder from releasing urine at the wrong time. ?Tricyclic antidepressants to relax bladder muscles. ?Injections of botulinum toxin type A directly into the bladder tissue to relax bladder muscles. Lifestyle changes. This may include: ?Weight loss. Talk to your health care provider about weight loss methods that would work best for you. ?Diet changes. This may include reducing how much alcohol and caffeine you consume, or drinking fluids at different times of the day. ?Not smoking. Do not use any products that contain nicotine or tobacco, such as cigarettes and e-cigarettes. If you need help quitting, ask your health care provider. Surgery. ?A device may be implanted to help manage the nerve signals that control urination. ?An electrode may be implanted to stimulate electrical signals in the bladder. ?A procedure may be done to change the shape of the bladder. This is done only in very severe cases. Follow these instructions at home: Lifestyle Make any diet or lifestyle changes that are recommended by your health care provider. These may include: ?Drinking less fluid or drinking fluids at different times of the day. ?Cutting down on caffeine or alcohol. ?Doing Kegel exercises. ?Losing weight if needed. ?Eating a healthy and balanced diet to prevent constipation. This may include: ?Eating foods that are high in fiber, such as fresh fruits and vegetables, whole grains, and beans. ?Limiting foods that are high in fat and processed sugars, such as fried and sweet foods. General instructions Take movg-tkg-knwkzbn and prescription medicines only as told by your health care provider. If you were prescribed an antibiotic medicine, take it as told by your health care provider. Do notstop taking the antibiotic even if you start to feel better. Use any implants or pessary as told by your health care provider. If needed, wear pads to absorb urine leakage. Keep a journal or log to track how much and when you drink and when you feel the need to urinate. This will help your health care provider monitor your condition. Keep all follow-up visits as told by your health care provider. This is important. Contact a health care provider if: You have a fever. Your symptoms do not get better with treatment. Your pain and discomfort get worse. You have more frequent urges to urinate. Get help right away if: You are not able to control your bladder. Summary Overactive bladder refers to a condition in which a person has a sudden need to pass urine. Several conditions may lead to an overactive bladder. Treatment for overactive bladder depends on the cause and severity of your condition. Follow your health care provider's instructions about lifestyle changes, doing Kegel exercises, keeping a journal, and taking medicines. This information is not intended to replace advice given to you by your health care provider. Make sure you discuss any questions you have with your health care provider. Document Released: 12/19/2009 Document Revised: 06/15/2019 Document Reviewed: 03/10/2018 [email or web address] Patient Education 2020 [place]. Follow Up Care 12/15/2021 15:51:03 With:PALMER TORRZE, Patricio Vidales, URL Address: [facility] [address] , [place] [address]- When: Unknown [facility] 10-10-2022 Hospital Discharge instructions Patient Education 12/15/2021 15:13:04 Urinary Incontinence Urinary Incontinence Urinary incontinence refers to a condition in which a person is unable to control where and when topass urine. A person with this condition will urinate when he or she does not mean to (involuntarily). What are the causes? This condition may be caused by: Medicines. Infections. Constipation. Overactive bladder muscles. Weak bladder muscles. Weak pelvic floor muscles. These muscles provide support for the bladder, intestine, and, in women,the uterus. Enlarged prostate in men. The prostate is a gland near the bladder. When it gets too big, it can pinch the urethra. With the urethra blocked, the bladder can weaken and lose the ability to empty properly. Surgery. Emotional factors, such as anxiety, stress, or post-traumatic stress disorder (PTSD). Pelvic organ prolapse. This happens in women when organs shift out of place and into the vagina. This shift can prevent the bladder and urethra from working properly. What increases the risk? The following factors may make you more likely to develop this condition: Older age. Obesity and physical inactivity. and childbirth. Menopause. Diseases that affect the nerves or spinal cord (neurological diseases). Long-term (chronic) coughing. This can increase pressure on the bladder and pelvic floor muscles. What are the signs or symptoms? Symptoms may vary depending on the type of urinary incontinence you have. They include: A sudden urge to urinate, but passing urine involuntarily before you can get to a bathroom (urge incontinence). Suddenly passing urine with any activity that forces urine to pass, such as coughing, laughing, exercise, or sneezing (stress incontinence). Needing to urinate often, but urinating only a small amount, or constantly dribbling urine (overflow incontinence). Urinating because you cannot get to the bathroom in time due to a physical disability, such as arthritis or injury, or communication and thinking problems, such as Alzheimer disease (functional incontinence). How is this diagnosed? This condition may be diagnosed based on: Your medical history. A physical exam. Tests, such as: ?Urine tests. ?X-rays of your kidney and bladder. ?Ultrasound. ?CT scan. ?Cystoscopy. In this procedure, a health care provider inserts a tube with a light and camera (cystoscope) through the urethra and into the bladder in order to check for problems. ?Urodynamic testing. These tests assess how well the bladder, urethra, and sphincter can store and release urine. There are different types of urodynamic tests, and they vary depending on what the test is measuring. To help diagnose your condition, your health care provider may recommend that you keep a log of when you urinate and how much you urinate. How is this treated? Treatment for this condition depends on the type of incontinence that you have and its cause. Treatment may include: Lifestyle changes, such as: ?Quitting smoking. ?Maintaining a healthy weight. ?Staying active. Try to get 150 minutes of moderate-intensity exercise every week. Ask your health care provider which activities are safe for you. ?Eating a healthy diet. ?Avoid high-fat foods, like fried foods. ?Avoid refined carbohydrates like white bread and white rice. ?Limit how much alcohol and caffeine you drink. ?Increase your fiber intake. Foods such as fresh fruits, vegetables, beans, and whole grains are healthy sources of fiber. Pelvic floor muscle exercises. Bladder training, such as lengthening the amount of time between bathroom breaks, or using the bathroom at regular intervals. Using techniques to suppress bladder urges. This can include distraction techniques or controlled breathing exercises. Medicines to relax the bladder muscles and prevent bladder spasms. Medicines to help slow or prevent the growth of a man's prostate. Botox injections. These can help relax the bladder muscles. Using pulses of electricity to help change bladder reflexes (electrical nerve stimulation). For women, using a bilingual medical receptionist to prevent urine leaks. This is a small, tampon-like, disposable device that is inserted into the urethra. Injecting collagen or carbon beads (bulking agents) into the urinary sphincter. These can help thicken tissue and close the bladder opening. Surgery. Follow these instructions at home: Lifestyle Limit alcohol and caffeine. These can fill your bladder quickly and irritate it. Keep yourself clean to help prevent odors and skin damage. Ask your doctor about special skin creams and cleansers that can protect the skin from urine. Consider wearing pads or adult diapers. Make sure to change them regularly, and always change them right after experiencing incontinence. General instructions Take odlx-kua-ffhbcbh and prescription medicines only as told by your health care provider. Use the bathroom about every 3 4 hours, even if you do not feel the need to urinate. Try to empty your bladder completely every time. After urinating, wait a minute. Then try to urinate again. Make sure you are in a relaxed position while urinating. If your incontinence is caused by nerve problems, keep a log of the medicines you take and the times you go to the bathroom. Keep all follow-up visits as told by your health care provider. This is important. Contact a health care provider if: You have pain that gets worse. Your incontinence gets worse. Get help right away if: You have a fever or chills. You are unable to urinate. You have redness in your groin area or down your legs. Summary Urinary incontinence refers to a condition in which a person is unable to control where and when topass urine. This condition may be caused by medicines, infection, weak bladder muscles, weak pelvic floor muscles, enlargement of the prostate (in men), or surgery. The following factors increase your risk for developing this condition: older age, obesity, and childbirth, menopause, neurological diseases, and chronic coughing. There are several types of urinary incontinence. They include urge incontinence, stress incontinence, overflow incontinence, and functional incontinence. This condition is usually treated first with lifestyle and behavioral changes, such as quitting smoking, eating a healthier diet, and doing regular pelvic floor exercises. Other treatment options include medicines, bulking agents, medical devices, electrical nerve stimulation, or surgery. This information is not intended to replace advice given to you by your health care provider. Make sure you discuss any questions you have with your health care provider. Document Released: 04/01/2005 Document Revised: 03/04/2018 Document Reviewed: 06/03/2017 [employer] Patient Education 2020 [place]. Follow Up Care 10/06/2021 12:21:17 With:PALMER TORREZ, Patricio Vidales, URL Address: [facility] [address] [place] [address] [phone] When:02/23/2022 [facility] 08-25-2022 NoteHNO ID: [id number] Author: Viktor Gilbert MD Service: ? Author Type: Physician Type: Progress Notes Filed: 10/30/2021 4:49 PM Note Text: HVTI TELEPHONE VISIT PROGRESS NOTE This is a telephone encounter initiated for an established patient, parent or guardian not originating from a related Evaluation AND Management service provided within the previous 7 days nor leading to an Evaluation AND Management service or procedure within the next 24 hours or soonest available appointment. Enio Meredith Raymond has consented to this telephone encounter. Persons Present: patient Chief Complaint/Reason: Provoked DVT HPI: Patient is a 30 year old male with a medical history significant for type 2 diabetes and morbid obesity (BMI 48). Patient underwent a vasectomy on 07/25/2021. This was complicated by a scrotal abscess and Golden's gangrene. Patient underwent several debridement surgeries in August 2021 and hospital stay was also complicated by COVID-19 infection. It was during this hospitalization patient was diagnosed with bilateral segmental and subsegmental pulmonary embolism. Patient was treated with anticoagulation (low molecular weight heparin 150 mg twice daily. This was inadequate for his weight and transition to oral anticoagulation was recommended. Unfortunately, patient did not want to stay in the hospital after his long hospitalization and left AGAINST MEDICAL ADVICE. Patient reported being switched to oral anticoagulation as an outpatient and was on the drug for about 4 to 6 weeks. Denies any significant bleeding episodes. Denied any chest pain or shortness of breath. No significant pedal edema. No anticipated surgeries for his Golden's gangrene in the upcoming weeks. This was the patient's first episode of a VTE. No family history of venous thromboembolism. Data Reviewed: CT 08/21/2021 BILATERAL PULMONARY EMBOLI IN THE SEGMENTAL AND SUBSEGMENTAL BRANCHES ESPECIALLY IN THE LOWER LOBES. THESE COULD BE RELATED TO ACUTE OR EARLY SUBACUTE IN NATURE. NO EVIDENCE OF SIGNIFICANT RV STRAIN. MULTIFOCAL PARENCHYMAL OPACITIES SUGGESTING INFLAMMATION/INFECTION, HEMORRHAGE AND/OR EDEMA WITH SUPERIMPOSED PARTIAL ATELECTASIS IN THE DEPENDENT AND BASILAR REGIONS. UNDERLYING AREA OF EARLY INFARCTION IN THE RIGHT LOWER LOBE IS NOT EXCLUDED. NODULE OF DIFFERENT ETIOLOGY IS NOT EXCLUDED WELL. CT FOLLOW-UP IS RECOMMENDED. INDETERMINATE HETEROGENEOUS DENSITIES IN BILATERAL RIBS. CLINICAL CORRELATION IS RECOMMENDED. FURTHER EVALUATION BY BONE SCAN CAN BE PERFORMED IF CLINICALLY INDICATED. Assessment and Plan: 30-year-old male with a history of provoked pulmonary embolism (08/21/2021) in the context of several surgeries and COVID-19 infection. Patient is here for follow-up. Regarding the etiology of the patient's VTE-we have obvious provoking risk factors. I would not recommend any thrombophilia testing for him. He would benefit from at least 3 months of anticoagulation (11/21/2021). Today, he reports already being off anticoagulation and does not intend to reinitiate it for the remainder of the 3 months. We talked at length about signs and symptoms of recurrent venous thromboembolism. We also further talked about his elevated risk of recurrent VTE in the context of any hospitalizations or surgeries in the future. He is otherwise doing well and will reach out to us for any concerns. Total Time Spent: 21-30 minutes Viktor Gilbert MD, MS, [facility] Department of Cardiovascular Medicine [address], [place] [address] Appointments: (Cardiology); (Vascular Medicine) This note was dictated using a voice recognition software. Please excuse any inadvertent typographical/grammatical/syntax errors that may have escaped the final proofread. Please don't hesitate to contact my office for any clarification.[facility]08[facility]2022 History of Present illness Narrative* Viktor Gilbert MD - 10/30/2021 4:37 PM EDT HVTI TELEPHONE VISIT PROGRESS NOTE This is a telephone encounter initiated for an established patient, parent or guardian not originating from a related Evaluation & Management service provided within the previous 7 days nor leading to an Evaluation & Management service or procedure within the next 24 hours or soonest available appointment. Enio Raymond has consented to this telephone encounter. Persons Present: patient Chief Complaint/Reason: Provoked DVT HPI: Patient is a 30 year old male with a medical history significant for type 2 diabetes and morbid obesity (BMI 48). Patient underwent a vasectomy on 07/25/2021. This was complicated by a scrotal abscess and Golden's gangrene. Patient underwent several debridement surgeries in August 2021 and hospital stay was also complicated by COVID-19 infection. It was during this hospitalization patient wasdiagnosed with bilateral segmental and subsegmental pulmonary embolism. Patient was treated with anticoagulation (low molecular weight heparin 150 mg twice daily. This was inadequate for his weight and transition to oral anticoagulation was recommended. Unfortunately, patient did not want to stay in the hospital after his long hospitalization and left AGAINST MEDICAL ADVICE. Patient reported being switched to oral anticoagulation as an outpatient and was on the drug for about 4 to 6 weeks. Denies any significant bleeding episodes. Denied any chest pain or shortness of breath. No significant pedal edema. No anticipated surgeries for his Golden's gangrene in the upcoming weeks. This was the patient's first episode of a VTE. No family history of venous thromboembolism. Data Reviewed: CT 08/21/2021 BILATERAL PULMONARY EMBOLI IN THE SEGMENTAL AND SUBSEGMENTAL BRANCHES ESPECIALLY IN THE LOWER LOBES. THESE COULD BE RELATED TO ACUTE OR EARLY SUBACUTE IN NATURE. NO EVIDENCE OF SIGNIFICANT RV STRAIN. MULTIFOCAL PARENCHYMAL OPACITIES SUGGESTING INFLAMMATION/INFECTION, HEMORRHAGE AND/OR EDEMA WITH SUPERIMPOSED PARTIAL ATELECTASIS IN THE DEPENDENT AND BASILAR REGIONS. UNDERLYING AREA OF EARLY INFARCTION IN THE RIGHT LOWER LOBE IS NOT EXCLUDED. NODULE OF DIFFERENT ETIOLOGY IS NOT EXCLUDED WELL. CT FOLLOW-UP IS RECOMMENDED. INDETERMINATE HETEROGENEOUS DENSITIES IN BILATERAL RIBS. CLINICAL CORRELATION IS RECOMMENDED. FURTHER EVALUATION BY BONE SCAN CAN BE PERFORMED IF CLINICALLY INDICATED. Assessment and Plan: 30-year-old male with a history of provoked pulmonary embolism (08/21/2021) in the context of several surgeries and COVID-19 infection. Patient is here for follow-up. Regarding the etiology of the patient's VTE-we have obvious provoking risk factors. I would not recommend any thrombophilia testing for him. He would benefit from at least 3 months of anticoagulation(11/21/2021). Today, he reports already being off anticoagulation and does not intend to reinitiate it for the remainder of the 3 months. We talked at length about signs and symptoms of recurrent venous thromboembolism. We also further talked about his elevated risk of recurrent VTE in the context of any hospitalizations or surgeries in the future. He is otherwise doing well and will reach out to us for any concerns. Total Time Spent: 21-30 minutes Viktor Gilbert MD, MS, [facility] Department of Cardiovascular Medicine [address], [place] [address] Appointments: (Cardiology); (Vascular Medicine) This note was dictated using a voice recognition software. Please excuse any inadvertent typographical/grammatical/syntax errors that may have escaped the final proofread. Please don't hesitate to contact my office for any clarification. [facility] Discharge instructions Patient Education 10/06/2021 12:05:20 Proteinuria Proteinuria Proteinuria is when there is too much protein in the urine. Proteins are important for building muscles and bones. Proteins are also needed to fight infections, help the blood to clot, and keep body fluids in balance. Proteinuria may be mild and temporary, or it may be an early sign of kidney disease. The kidneys make urine. Healthy kidneys also keep substances like proteins from leaving the blood and ending up inthe urine. What are the causes? This condition may be caused by damage to the kidneys or by temporary causes such as fever or stress. Proteinuria may happen when the kidneys are not working well. Healthy kidneys have filters (glomeruli) that keep proteins out of the urine. Proteinuria may mean that the glomeruli are damaged. The main causes of this type of damage are: Diabetes. High blood pressure. Other causes of kidney damage can also cause proteinuria, such as: Diseases of the immune system, such as lupus, rheumatoid arthritis, sarcoidosis, and Goodpasture syndrome. Heart disease or heart failure. Kidney infection. Certain cancers, including kidney cancer, lymphoma, leukemia, and multiple myeloma. Amyloidosis. This is a disease that causes abnormal proteins to build up in body tissues. Reactions to certain medicines, such as NSAIDs. Injuries or poisons (toxins). High blood pressure that occurs during (preeclampsia and eclampsia). Temporary proteinuria may result from conditions that put stress on the kidneys. These conditions usually do not cause kidney damage. They include: Fever. Exposure to cold or heat. Emotional or physical stress. Extreme exercise. Standing for long periods of time. What increases the risk? You are more likely to develop this condition if you: Have diabetes. Have high blood pressure. Have heart disease or heart failure. Have an immune disease, cancer, or other disease that affects the kidneys. Have a family history of kidney disease. Are 65 years of age or older. Are overweight. Are of , , /, or descent. Are . Have an infection. What are the signs or symptoms? Mild proteinuria may not cause symptoms. As more proteins enter the urine, symptoms of kidney disease may develop, such as: Foamy urine. Swelling of the face, abdomen, hands, legs, or feet (edema). Needing to urinate frequently. Fatigue. Difficulty sleeping. Dry and itchy skin. Nausea and vomiting. Muscle cramps. Shortness of breath. How is this diagnosed? This condition may be diagnosed with a urine test. You may have this test as part of a routine physical exam or because you have symptoms of kidney disease or risk factors for kidney disease. You mayalso have: Blood tests to measure the level of a certain substance (creatinine) that increases with kidney disease. Imaging tests of your kidney, such as a CT scan or an ultrasound, to look for signs of kidney damage. How is this treated? If your proteinuria is mild or temporary, treatment may not be needed for this condition. Your health care provider may show you how to monitor the level of protein in your urine at home. Identifyingproteinuria early is important so that the cause of the condition can be treated. Treatment for this condition depends on the cause of your proteinuria. Treatment may include: Making diet and lifestyle changes. Getting blood pressure under control. Getting blood sugar under control, if you have diabetes. Managing any other medical conditions you have that affect your kidneys. Giving , if you are . Avoiding medicines that damage your kidneys. In severe cases, kidney disease may need to be treated with medicines or dialysis. Follow these instructions at home: Activity Return to your normal activities as told by your health care provider. Ask your health care provider what activities are safe for you. Ask your health care provider to recommend an exercise program. General instructions Check your protein levels at home if directed by your health care provider. Follow instructions from your health care provider about eating or drinking restrictions. If you are overweight, ask your health care provider about diets that can help you get to a healthyweight. Take nihq-egv-szrfgue and prescription medicines only as told by your health care provider. Keep all follow-up visits as told by your health care provider. This is important. Contact a health care provider if: You have new symptoms. Your symptoms get worse or do not improve. Get help right away if you: Have back pain. Have diarrhea. Vomit. Have a fever. Have a rash. Summary Proteinuria is when there is too much protein in the urine. Proteinuria may be mild and temporary, or it may be an early sign of kidney disease. This condition may be diagnosed with a urine test. Treatment for this condition depends on the cause of your proteinuria. Treatment may include diet and lifestyle changes, blood pressure and blood sugar management, and avoiding medicines that may damage the kidneys. If the proteinuria is severe, it may need to be treated with medicines or dialysis. This information is not intended to replace advice given to you by your health care provider. Make sure you discuss any questions you have with your health care provider. Document Released: 04/14/2006 Document Revised: 10/10/2018 Document Reviewed: 10/10/2018 [employer] Patient Education 2020 [place]. Follow Up Care 10/01/2021 14:34:21 With:PALMER TORREZ, Patricio Vidales, URL Address: [facility] [address], [place] [phone] When:Within 2 Month(s) [facility] 07-19-2022 NoteHNO ID: [id number] Author: Tahir Dejesus MD Service: ? 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 Presented to ED on 08/13 and was taken to the OR for scrotal exploration and extensive scrotal debridement. Had scrotal debridment x3 08/13/2021, 08/15/2021 and 08/19/2021. Physical Exam There were no vitals taken for this visit. General: Alert, no acute distress, oriented Lungs: No respiratory distress or pursed lip breathing Psych: Affect and mood normal Abdomen: Estimated body mass index is 48.08 kg/m? as calculated from the following: Height as of 08/13/21: 190.5 cm (6' 3 ). Weight as of 08/29/21: 174.5 kg (384 lb 11.2 oz). Overall healing well, some fibrinous exudate, but swelling down, scrotum soft, stitches removed. Assessment: Post op Plan: - will follow up locally as needed Scribed for Dr. Tahir Dejesus by adriel Vazquez scribe, on September 23, 2021 I agree with the Chief Complaint, ROS, and Past Histories independently gathered by the clinical direct support professional home health including scribe and or medical student and or MIGUEL and or resident or fellow and the remaining scribed note accurately describes my personal service to the patient. 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 Presented to ED on 08/13 and was taken to the OR for scrotal exploration and extensive scrotal debridement. Had scrotal debridment x3 08/13/2021, 08/15/2021 and 08/19/2021. Physical Exam There were no vitals taken for this visit. General: Alert, no acute distress, oriented Lungs: No respiratory distress or pursed lip breathing Psych: Affect and mood normal Abdomen: Estimated body mass index is 48.08 kg/m as calculated from the following: Height as of 08/13/21: 190.5 cm (6' 3 ). Weight as of 08/29/21: 174.5 kg (384 lb 11.2 oz). Overall healing well, some fibrinous exudate, but swelling down, scrotum soft, stitches removed. Assessment: Post op Plan: - will follow up locally as needed Scribed for Dr. Tahir Dejesus by adriel Vazquez scribe, on September 23, 2021 I agree with the Chief Complaint, ROS, and Past Histories independently gathered by the clinical direct support professional home health including scribe and or medical student and or MIGUEL and or resident or fellow and the remaining scribed note accurately describes my personal service to the patient. Tahir Dejesus MD, MS [facility] documented in this encounterProm[facility] NotePatient Outreach (UROLMN) ENIO RAYMOND ([id number]) 1990 M T Date Time Provider Department 09/23/21 TAHIR DEJESUS During your visit today, we recorded the following information about you: Allergies As of Date: 09/23/2021 (No Known Allergies) Date Reviewed: 09/23/2021 Reviewed by: Rell Gallegos MA - Fully Assessed Visit Diagnosis:Screening for genitourinary condition [Z13.89] Order(s):URINALYSIS, REFLEX MICROSCOPIC [[id number]] Order #: [id number]. #:[id number] Prescriptions as of 09/26/2021 - warfarin (COUMADIN) 7.5 mg tablet TAKE 1 TO 1 AND 1/2 TABLETS BY MOUTH DAILY DIRECTED - warfarin (COUMADIN) 5 mg tablet Take 1 tablet by mouth once daily. - LEVEMIR FLEXTOUCH U-100 INSULIN 100 unit/mL (3 mL) injection pen Inject 30 Units subcutaneously once daily. - metFORMIN ER (GLUCOPHAGE XR) 500 mg 24 hr tablet Take 2 tablets by mouth twice daily. - atorvastatin (LIPITOR) 20 mg tablet Take 20 mg by mouth once daily. - buPROPion XL (WELLBUTRIN XL) 150 mg 24 hr tablet Take 150 mg by mouth once daily. - FLUoxetine (PROZAC) 40 mg capsule Take 40 mg by mouth once daily. - insulin detemir U-100 (LEVEMIR) 100 unit/mL (3 mL) injection pen Insulin Detemir U-100 (Levemir Flextouch U-100 Insuln) 100 unit/mL (3 mL) Insulin Pen Active 35 UNITS SUBCUT Daily 0 October 09, 2020 12:11pm - ketoconazole (NIZORAL) 2 % cream APPLY TO AFFECTED AREA 3 TIMES A DAY FOR 7 DAYS - lisinopril (ZESTRIL, PRINIVIL) 20 mg tablet Take 20 mg by mouth once daily. - pantoprazole DR (PROTONIX) 40 mg tablet Take 40 mg by mouth once daily. - tiZANidine (ZANAFLEX) 4 mg tablet Take 4 mg by mouth once daily as needed for pain. 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 Depressive disorder [F32.A] 08/14/2021 Diabetes mellitus (HCC) [E11.9] 10/09/2020 Hypertriglyceridemia [E78.1] 08/14/2021 08/18/2021 Acute pancreatitis [K85.90] 10/25/2020 Personal history of nicotine dependence [Z87.89*10/09/2020 Obstructive sleep apnea [G47.33] 10/09/2020 08/26/2021 Morbid obesity (HCC) [E66.01] 10/09/2020 Contact with and (suspected) exposure to covid-*03/24/2021 COVID [U07.1] 08/14/2021 Hypotension [I95.9] 08/15/2021 08/26/2021 Acute postoperative respiratory insufficiency [*08/15/2021 Acute pain [R52] 08/18/2021 Mild protein-calorie malnutrition (HCC) [E44.1] 08/20/2021 Electrolyte imbalance [E87.8] 08/21/2021 Pulmonary embolism (HCC) [I26.99] 08/22/2021 Fever [R50.9] 08/22/2021 Other chest pain [R07.89] 08/26/2021 08/27/2021 Encounter Status:Closed by KATALINA BILLINGS on 09/26/21[facility] 09-10-2021 Miscellaneous Notes* Telephone Encounter - Alana Douglass Castle - 09/10/2021 3:46 PM EDT Returned call to patient's . Incision edges are no longer approximated. No drainage. PCP put patient on antibiotics. They are keeping a DSD on it. Advised to monitor but it is okay to wait to seeDr. Weight until scheduled follow up appt. Mrs. Raymond verbalized understanding. All questions answered. Alana Castle RN documented in this encounterPromed[facility] History of Past illness Narrative* Problem Noted Date Resolved Date Other chest pain 08/26/2021 08/27/2021 Last Assessment & Plan: 08/26 c/o RCW and R shoulder pain radiating to R upper arm, denies SOB. ECG and troponin series unremarkable. Resolved with IV fentanyl. PLAN: - Repeat ECG and cardiac enzymes if c/o chest pain - Continue Tele Hypotension 08/15/2021 08/26/2021 Last Assessment & Plan: Assessment: Hypotensive this AM in setting of DKA/Fourniers Gangrene, [place]/Central line placed. S/p 750cc albumin with good response PLAN: -Fluid bolus prn -Consider pressors if stops responding to fluid Hypertriglyceridemia 08/14/2021 08/18/2021 Last Assessment & Plan: Trigs 1444, propofol stopped. Precedex added PLAN: -- recheck and add statin if indicated Obstructive sleep apnea 10/09/2020 08/27/19 Last Assessment & Plan: Non compliant with CPAP at home PLAN: - extubate to BiPAP today documented as of this encounter (statuses as of 09/10/2021) [facility] History of Past illness Narrative* Problem Noted Date Resolved Date Other chest pain 08/26/2021 08/27/2021 Last Assessment & Plan: 08/26 c/o RCW and R shoulder pain radiating to R upper arm, denies SOB. ECG and troponin series unremarkable. Resolved with IV fentanyl. PLAN: - Repeat ECG and cardiac enzymes if c/o chest pain - Continue Tele Hypotension 08/15/2021 08/26/2021 Last Assessment & Plan: Assessment: Hypotensive this AM in setting of DKA/Fourniers Gangrene, [place]/Central line placed. S/p 750cc albumin with good response PLAN: -Fluid bolus prn -Consider pressors if stops responding to fluid Hypertriglyceridemia 08/14/2021 08/18/2021 Last Assessment & Plan: Trigs 1444, propofol stopped. Precedex added PLAN: -- recheck and add statin if indicated Obstructive sleep apnea 10/09/2020 08/27/19 Last Assessment & Plan: Non compliant with CPAP at home PLAN: - extubate to BiPAP today documented as of this encounter (statuses as of 09/26/2021) [facility] History of Past illness Narrative* Problem Noted Date Resolved Date Other chest pain 08/26/2021 08/27/2021 Last Assessment & Plan: 08/26 c/o RCW and R shoulder pain radiating to R upper arm, denies SOB. ECG and troponin series unremarkable. Resolved with IV fentanyl. PLAN: - Repeat ECG and cardiac enzymes if c/o chest pain - Continue Tele Hypotension 08/15/2021 08/26/2021 Last Assessment & Plan: Assessment: Hypotensive this AM in setting of DKA/Fourniers Gangrene, [place]/Central line placed. S/p 750cc albumin with good response PLAN: -Fluid bolus prn -Consider pressors if stops responding to fluid Hypertriglyceridemia 08/14/2021 08/18/2021 Last Assessment & Plan: Trigs 1444, propofol stopped. Precedex added PLAN: -- recheck and add statin if indicated Obstructive sleep apnea 10/09/2020 08/27/19 Last Assessment & Plan: Non compliant with CPAP at home PLAN: - extubate to BiPAP today documented as of this encounter (statuses as of 10/06/2021) [facility] History of Past illness Narrative* Problem Noted Date Resolved Date Other chest pain 08/26/2021 08/27/2021 Last Assessment & Plan: 08/26 c/o RCW and R shoulder pain radiating to R upper arm, denies SOB. ECG and troponin series unremarkable. Resolved with IV fentanyl. PLAN: - Repeat ECG and cardiac enzymes if c/o chest pain - Continue Tele Hypotension 08/15/2021 08/26/2021 Last Assessment & Plan: Assessment: Hypotensive this AM in setting of DKA/Fourniers Gangrene, [place]/Central line placed. S/p 750cc albumin with good response PLAN: -Fluid bolus prn -Consider pressors if stops responding to fluid Hypertriglyceridemia 08/14/2021 08/18/2021 Last Assessment & Plan: Trigs 1444, propofol stopped. Precedex added PLAN: -- recheck and add statin if indicated Obstructive sleep apnea 10/09/2020 08/27/19 Last Assessment & Plan: Non compliant with CPAP at home PLAN: - extubate to BiPAP today documented as of this encounter (statuses as of 10/30/2021) [facility] Hospital Discharge instructions Patient Education 08/13/2021 12:24:12 Scrotal Swelling Scrotal Swelling Scrotal swelling refers to a condition in which the sac of skin that contains the testes (scrotum) is enlarged or swollen. Many things can cause the scrotum to enlarge or swell, including: Fluid around the testicle (hydrocele). A weakened area in the muscles around the groin (hernia). An enlarged vein around the testicle (varicocele). An injury. An infection. Certain medical treatments. Certain medical conditions, such as congestive heart failure. A recent genital surgery or procedure. A twisting of the spermatic cord that cuts off blood supply (testicular torsion). Testicular cancer. Scrotal swelling can happen along with scrotal pain. Follow these instructions at home: Until the swelling goes away: ?Rest. The best position to rest in is to lie down. ?Limit activity. Put ice on the scrotum: ?Put ice in a plastic bag. ?Place a towel between your skin and the bag. ?Leave the ice on for 20 minutes, 2 3 times a day for [address] rolled towel under your testicles for support. Wear loose-fitting clothing or an athletic support cup for comfort. Take rxfz-vbr-wnkbgfj and prescription medicines only as told by your health care provider. Perform a monthly self-exam of the scrotum and penis. Feel for changes. Ask your health care provider how to perform a monthly self-exam if you are unsure. Contact a health care provider if: You have a sudden pain that is persistent and does not improve. You have a heavy feeling or notice fluid in the scrotum. You have pain or burning while urinating. You have blood in your urine or semen. You feel a lump around the testicle. You notice that one testicle is larger than the other. Keep in mind that a small difference in sizeis normal. You have a persistent dull ache or pain in your groin or scrotum. Get help right away if: The pain does not go away. The pain becomes severe. You have a fever or chills. You have pain or vomiting that cannot be controlled. One or both sides of the scrotum are very red and swollen. There is redness spreading upward from your scrotum to your abdomen or downward from your scrotum to your thighs. Summary Scrotal swelling refers to a condition in which the sac of skin that contains the testes (scrotum) is enlarged. Many things can cause the scrotum to swell, including hydrocele, a hernia, and a varicocele. Limiting activity and icing the scrotum may help reduce swelling and pain. Contact your health care provider if you develop scrotal pain that is sudden and persistent, or if you have pain while urinating. Do this also if you feel a lump around the testicle or notice blood in your urine or semen. Get help right away for uncontrolled pain or vomiting, for very red and swollen scrotum, or for fever or chills. This information is not intended to replace advice given to you by your health care provider. Make sure you discuss any questions you have with your health care provider. Document Released: 03/27/2011 Document Revised: 02/04/2018 Document Reviewed: 05/10/2017 [employer] Patient Education 2020 [place]. Follow Up Care 08/12/2021 16:38:44 With:PALMER TORREZ, Patricio Vidales, URL Address: [facility] [address], [place] [address]- When: Unknown [facility] 01-17-2022 Evaluation note* Encounter Date Diagnosis Assessment Notes Treatment Notes Treatment Clinical Notes Mar, Contact with and (suspected) exposure to other viral communicable diseases (ICD-10 - Z20.828) Mar, Viral upper respiratory illness (ICD-10 - J06.9) Drink plenty fluids and get plenty of rest. Stop the cefdinir. Take the Zithromax and Medrol Dosepak as prescribed until gone. Use the albuterol inhaler as prescribed as needed for cough or shortness of breath. Follow-up with your family physician and request COVID PCR test today. Follow-up with your family physician if no improvement in 2 to 3 days. Mar, Other Additional time spent conducting pre-visit phone call, screening for symptoms, instructions on social distancing, application and removal of PPE, and cleaning of examination room, equipment and supplies was preformed. Patient education given for testing methodology and results. Patient care instructions given in writting by [facility] Care At Home document. [employer] Other 11-16-2021 Evaluation note* Encounter Date Diagnosis Assessment Notes Treatment Notes Treatment Clinical Notes Jan, Contact with and (suspected) exposure to other viral communicable diseases (ICD-10 - Z20.828) Advised patient that COVID antigen rapid test today in office was negative. Due to close contact with COVID+ person, I am highly suspicious and offered PCR test. After discussion with patient PCR order placed and patient was provided with copy of order and instructions on how to schedule. Advised that I will call them with results within 2-5 days. Discussed supportive care of viral infections, including, OTC cold medications such as Cordicidin HBP, Tylenol/Motrin as directed on packaging for fever/aches, increase fluids and rest, cool mist humidification, throat lozenges. Patient to follow-up with UC or PCP for persistent or worsening sx despite tx. Immediate eval by ER for warning s/sx as discussed, including but not limited to, SOB, difficulty breathing, chest pain, palpitations, fever >103 or fevers that are not reduced with antipyretic, significant dehydration (unable to keep fluids or food down, persistent vomiting/diarrhea) , abdominal pain, lethargy, severe headache. Patient was provided with education hand sheet. Patient verbalizes understanding and is agreeable to treatment plan Jan, Other Additional time spent conducting pre-visit phone call, screening for symptoms, instructions on social distancing, application and removal of PPE, and cleaning of examination room, equipment and supplies was preformed. Patient education given for testing methodology and results. Patient care instructions given in writting by [facility] Home document [employer] Other Evaluation + Plan note No data available for this section [facility] [place] Evaluation + Plan note Future Appointments Appointment Date:12/15/2021 01:15:00 PM Scheduled Provider:Patricio CHAKRABORTY MD Location:[facility] Appointment Type:URO Office Visit Diagnostic Tests Pending * Electrolyte Panel 10/06/21 Future Scheduled Tests Laboratory* Semen Analysis Post Vasectomy 10/06/21 * Semen Analysis Post Vasectomy 10/06/21 [facility] evaluation + Plan note Future Appointments Appointment Date:02/16/2022 01:15:00 PM Scheduled Provider:Patricio CHAKRABORTY MD Location:[facility] Appointment Type:URO Office Visit Diagnostic Tests Pending * Electrolyte Panel 12/15/21 Future Scheduled Tests Laboratory* Semen Analysis Post Vasectomy 10/06/21 * Semen Analysis Post Vasectomy 10/06/21 [facility] evaluation + Plan note Future Appointments Appointment Date:08/17/2022 10:30:00 AM Scheduled Provider:Patricio CHAKRABORTY MD Location:[facility] Appointment Type:URO Office Visit Future Scheduled Tests Laboratory* Semen Analysis Post Vasectomy 10/06/21 * Semen Analysis Post Vasectomy 10/06/21 [facility] evaluation + Plan note Future Appointments Appointment Date:03/29/2023 11:15:00 AM Scheduled Provider:Patricio CHAKRABORTY MD Location:[facility] Appointment Type:URO Office Visit Diagnostic Tests Pending * Testosterone Level Total 11/23/22 * Prolactin Level 11/23/22 [facility] evaldiogpo noteNo assessment information available [facility] [employer] Work Phone: Evaluation noteNo InformationNortVal[facility] [employer] Other Evaluation note* Diagnosis Screening for genitourinary condition Screening for other and unspecified genitourinary condition documented in this encounter [facility] note* Diagnosis Vasectomy status- Primary documented in this encounter [facility] note* Diagnosis Multiple subsegmental pulmonary emboli without acute cor pulmonale (HCC)- Primary Anticoagulation management encounter Encounter for therapeutic drug monitoring documented in this encounter [facility] note* Diagnosis Onset Date Resolution Status Depression acute [facility] [employer] Work Phone: Hisgerk general Narrative - Reported* Type Description Date Medical History fx rt great toe Medical History diabetes mallitus Medical History mood disorder Surgical History arthroscopic knee surgery [place] TIME PLUS Q Other Hospital Discharge instructions No data [facility] for this [facility] Additional Instructions Regular Diet No Activity [facility] Work Phone: Progress note No data available for this section [facility] Chief Complaint and Reason for Visit Chief Complaint Desired Sterilizatio n Chief Complaint Desired Sterilizatio n Urogenital Swelling s/p vasectomy Chief Complaint Desired Sterilizatio n Urogenital Swelling s/p vasectomy Cold Sweats, Scrotum Pain, loss of control of blad Chief Complaint MDD Reason for Visit Depression Advance Directives Advance Directive Response Recorded Date/ Time Advance Directives No March 22, 2020 6:22am Documents on File Type Date Recorded Patient Cna Caregiver Expl anation Advance Directive(s) 08/13/2021 5:01 PM Advance Directive Response Recorded Date/ Time Advance Directives No March 22, 2020 5:22am Summary Purpose Family History Relationship Condition Age at Onset Recorded Date/T danelle father Bipolar affective disorder Unknown brother Bipolar affective disorder Unknown No Family History Records Found Additional Source Comments Care Teams (unrecognized sec tion and content) Personnel Name: SHRUTHI DÍAZ CNP Address: Address: [address] [facility] [place] [address] Team Status: Inactive Member Role Status Dates Jackelin Hale Primary Care Provider Active Patricio Chakraborty MD Attending Provider Active Team Status: Active Member Role Status Dates Jackelin Hale Primary Care Provider Active Team Status: Inactive Member Role Status Dates PHYSICIAN NO FAMILY Primary Care Provider Active Oliver Diehl Jr, MD Emergency Provider Active Team Status: Active Member Role Status Dates PHYSICIAN NO FAMILY Primary Care Provider Active Team Status: Inactive Member Role Status Dates PHYSICIAN NO FAMILY Primary Care Provider Active Segun Cho MD Emergency Provider Active Team Status: Inactive Member Role Status Dates PHYSICIAN NO FAMILY Primary Care Provider Active Dell Kim MD Admit Provider, Attending Provider Active Goals (unrecognized section and content) Goals may be documented in a n alternate section No data available for this sectionGoals may be documented in an alternate sectionGoals may be documented in an alternate sectionNo InformationNo InformationNo Information No data available for this section No data available for this section No data available for this section No data available for this section No data available for this section No data available for this section No data available for this section No data available for this section (unrecognized sect ion and content) No Status Records FoundNo Status Records FoundNo Status Records FoundNo Status Records FoundNo Status Records Found INFORMATION SOURCE (unrecogn ized section and content) DATE CREATED AUTHOR 08/14/2021 [facility] DATE CREATED AUTHOR AUTHOR'S ORGANIZ ATION 04/04/2022 [facility] DATE CREATED AUTHOR AUTHOR'S ORGANIZ ATION [facility]/17/2022 [facility] DATE CREATED AUTHOR AUTHOR'S ORGANIZ ATION 09/22/2022 [facility] DATE CREATED AUTHOR AUTHOR'S ORGANIZ ATION 12/11/2022 [facility] REASON FOR VISIT (unrecogniz ed section and content) Reason Comments Follow Up Reason Comments Returning Patient's Call #11 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, 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, COUGH#6 EXPOSURE, COUGH, LOSS OF SMELL X3 DAYS, COVID Provider Visit Source Comments (unrecognize d section and content) In the event this informatio n is protected by the Federal Confidentiality of Alcohol and Drug Abuse Patient Records regulations: The Federal rules restrict any use of the information to criminally investigate or prosecute any alcohol or drug abuse patient.[facility] the event this information is protected by the Federal Confidentiality of Alcohol and Drug Abuse Patient Records regulations: The Federal rules restrict any use of the information to criminally investigate or prosecute any alcohol or drug abuse patient.[facility] the event this information is protected by the Federal Confidentiality of Alcohol and Drug Abuse Patient Records regulations: The Federal rules restrict any use of the information to criminally investigate or prosecute any alcohol or drug abuse patient.[facility] the event this information is protected by the Federal Confidentiality of Alcohol and Drug Abuse Patient Records regulations: The Federal rules restrict any use of the information to criminally investigate or prosecute any alcohol or drug abuse patient.[facility] FOR RECORDS PERTAINING TO PATIENTS WHO ARE OR HAVE BEEN ENROLLED IN A CHEMICAL DEPENDENCY/SUBSTANCEABUSE PROGRAM, SOME INFORMATION MAY BE OMITTED. This clinical summary was aggregated from multiple sources. Caution should be exercised in using it in the provision of clinical care. This summary normalizes information from multiple sources, and as a consequence, information in this document may materially change the coding, format and clinical context of patient data. In addition, data may be omitted in some cases. CLINICAL DECISIONS SHOULD BE BASED ON THE PRIMARY CLINICAL RECORDS. [facility] [employer] [facility]. provides no warranty or guarantee of the accuracy or completeness of information in this document.
[2024-01-13] MEDS: KETOROLAC TROMETHAMINE 30 MG/ML VIAL 15 MG IM (03:53)
[2024-01-13] MEDS: PENICILLIN V POTASSIUM 250 MG TABLET 500 MG PO (03:54)
[2024-01-13 04:02] VITALS: BP 180/120
== END 2024-01-13 04:04 | disposition home or self-care (01) ==
LOC: ER 03:32
PROVIDERS: Emergency Provider Emergency Medicine; Family Provider Family Medicine; PCP Nurse Practitioner Family
DX: K08.89 Other specified disorders of teeth and supporting structures (principal); F17.290 Nicotine dependence, other tobacco product, uncomplicated
CPT/HCPCS: 96372; 99284; J1885

== ENCOUNTER 2024-03-31 11:21 | Outpatient (OUT) | payer OTHER, SELFPAY ==
--- OUTSIDE RECORDS SUMMARY | 2024-03-31 11:38 | XMS_ITS | CCD ---
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 Name Role Phone Jackelin Hale Primary Care Provider [phone] MD Patricio Chakraborty Attending Provider [phone] NONE, XXXX Primary Care Physician Unavailab le NO FAMILY, PHYSICIAN Primary Care Provider Unava ilable MD Oliver Diehl Jr Emergency Provider MD Segun Cho Emergency Provider [phone] Bailey Vanegas Unavailable Shruthi Billingsley Unavailable Unavailable Primary Care Provider UnavailSHRUTHI Beatty Primary Care Physician [phone] NO FAMILY, PHYSICIAN Primary Care Provider Unava ilMD Dell Brooks Admit Provider MD Dell Kim Attending Provider [phone] NO FAMILY, PHYSICIAN Primary Care Unavailable Oliver [...] Consulting Unavailable SHRUTHI DÍAZ Admitting Unavailable SHRUTHI DÍAZ Attending Unavailable SHRUTHI DÍAZ Consulting Unavailable SHRUTHI [...] Admitting Unavailable JILLIAN .CHARLES Consulting Unavailclaudia chacko [facility], SHRUTHI Primary Care Unavailable ELIUD HERNANDEZ Consulting Unavailable FAWWAD, WRIGHT H Admitting Unavailable AICHHOLZ, EVENT CREW TECHNICIAN JACKELIN Primary Care Unavailable FAWWAD, WRIGHT H Attending Unavailable AICHOLZ, EVENT CREW TECHNICIAN JACKELIN Primary Care Unavailable SHRUTHI DÍAZ Attending Unavailable ARJUN, SHRUTHI Admitting Unavailable FAWWAD, WRIGHT H Attending Unavailable FAWWAD, WRIGHT H Admitting Unavailable AICHHOLZ, EVENT CREW TECHNICIAN JACKELIN Primary Care Unavailable FAWWAD, WRIGHT H Admitting Unavailable FAWWAD, WRIGHT H Attending Unavailable ARJUN, SHRUTHI Primary Care Unavailable ARJUN, HSRUTHI Primary Care Unavailable FAWWAD, WRIGHT H Admitting [...] Consulting Unavailable NOLAN MOODY Consulting Unavailable JUANITA RIVERA Consulting Unavailable GERTRUDIS CHAUHAN Consulting Unavailable ARJUN, [...] vailable LAKSHMIPATHY ., NARENDRANATH Attending Tram vailable AJRUN, SHRUTHI Primary Care Unavailable FAWWAD, WRIGHT H [...] Propensity to adverse reactions (disorder) [facility] Repository Medications Current Medications Medication Drug Class(es) [...] 6 hours 15 July 31, 2021 11:45pm [id number] 200 actuat albuterol 0.09 mg/actuat metered dose [...] Bedtime, # 90 tab(s), Refills(s) 3, Pharmacy: [facility]/pharmacy #[id number], 190, ignacio, 06/11/22 8:47:00 EDT, Height/Length Dosing, 175, kg, 06/11/22 8:47:00 EDT, Weight Dosing Start Date: 07/08/22 Status: Ordered Start: 10-06-2021 take 2 tablets by mo [facility] at bedtime DDAVP 0.2 mg oral tablet 0.4 mg = 2 tab(s), Oral, Bedtime, # 180 tab(s), Refills(s) 2, Pharmacy: [facility]/pharmacy #[id number], 190, cm, 10/06/21 11:26:00 EDT, Height/Length Dosing, 175, kg, 10/06/21 11:26:00 EDT, Weight Dosing Start Date: 10/06/21 Status: Ordered Start: 10-06-2021 take 1 tablet by jason th three times daily DDAVP 0.2 mg oral tablet 0.2 mg = 1 tab(s), Oral, TID, # 90 tab(s), Refills(s) 2, Pharmacy: [facility]/pharmacy #[id number], ignacio Lindsey, 10/06/21 11:26:00 EDT, Height/Length Dosing, 175, kg, 10/06/21 11:26:00 EDT, Weight Dosing Start Date: 10/06/21 Status: Ordered Start: 06-09-2021 take 1 tablet by jason once daily DDAVP 0.2 mg oral tablet 0.2 mg = 1 tab(s), Oral, Daily, # 30 tab(s), Refills(s) 11, Pharmacy: [facility]/pharmacy #[id number], 190, ignacio, 06/09/21 13:52:00 EDT, [...] Start: 10-05-2020 take 1 capsule by mo [facility] once daily Fluoxetine (Prozac) 20 mg capsule [...] day(s), # 60 cap(s), Refills(s) 6, Pharmacy: [facility]/pharmacy #[id number], 190, cm, 11/23/22 11:45:00 EDT, [...] Daily, # 30 tab(s), Refills(s) 11, Pharmacy: [facility]/pharmacy #[id number], 190, cm, 12/15/21 14:21:00 EDT, Height/Length Dosing, 175, kg, 12/15/21 14:21:00 EDT, Weight Dosing Start Date: 12/15/21 Status: Ordered sulfamethoxazole 800 mg / trimethoprim 160 mg oral tablet (1 source) Dihydrofolate Reductase Inhibitor Antibacterial, Sulfonamide Antimicrobial Start: 07-14-19 End: 07-19-19 Bactrim D.S. 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) drug therapy] Onset: 3 Episodic Other aftercare (1 source) Other usp (current) drug therapy; Translations: [OTH NURSING HOME CURRENT DRUG THERAPY] Onset: 3 Episodic Other aftercare (1 source) group home (current) use of insulin; Translations: [NURSING HOME CURRENT USE OF INSULIN] Onset: 3 Episodic Other aftercare (1 source) group home (current) use of oral hypoglycemic drugs; Translations: [NURSING HOME USE ORAL HYPOGLYCEMIC DX] Onset: 3 Episodic [...] Onset: 01-06-2022 Episodic Other aftercare (1 source) group home (current) use of anticoagulants; Translations: [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 USE ANTICOAGULANTS] Onset: 02-06-2022 Episodic Other [...] Facility Pre-Certification Formon Pre-Certification Form [id number]#1 .00CD:127 [facility] Lab Reportson 12-04-2022 Lab Reports [id number]#1 .00CD:127 Normal [facility] Ambulatory Visit Summaryon 0 11-23-2022 Ambulatory Visit Summary Normal [facility] Patient Educationon 11-24-19 Patient Education Normal [facility] Urology Office/Clinic Noteon 11-23-2022 Urology Office/Clinic Note Normal [facility] Comment on above: Result Comment: Elec tronically Signed By: Patricio CHAKRABORTY MD\.br\Date and Time Signed: 11/23/22 13:02 EDT\.br\Electronically Co-Signed By: Tara Lee\.br\Date and Time Co-Signed: 11/23/22 13:00 EDT Ambulatory Visit Summaryon 0 08-17-2022 Ambulatory Visit Summary Normal [facility] Patient Educationon 08-18-19 Patient Education [facility] Physician Referralon 023 Physician Referral [id number]#1 .00CD:127 Normal [facility] Urology Office/Clinic Noteon 08-17-2022 Urology Office/Clinic Note [facility] Comment on above: Result Comment: Elec tronically Signed By: Patricio CHAKRABORTY MD\.br\Date and Time Signed: 08/17/22 11:40 EDT\.br\Electronically Co-Signed By: Germaine Mccain\.br\Date and Time Co-Signed: 08/17/22 11:37 EDT C Urineon 07-14-2022 Bacteria identified Cx Nom (U) Normal [facility] Comment on above: Performed By: #### 2 [id number] ####[facility] [address] [place] [address] BMPon 07-13-2022 Anion gap [Moles/Vol] 12 mmol/L Normal 6-16 [facility] Comment on above: Performed By: #### 1 [id number], [id number] ####[facility] [address] [place] [address] Calcium [Mass/Vol] 8.9 mg/dL Normal 8.9-11.1 [facility] Comment on above: Performed By: #### 1 [id number], [id number] ####[facility] [address] [place] [address] Chloride [Moles/Vol] 102 mmol/L Normal 101-111 [facility] Comment on above: Performed By: #### 1 [id number], [id number] ####[facility] [address] [place] [address] CO2 [Moles/Vol] 24 mmol/L Normal 21-31 [facility] Comment on above: Performed By: #### 1 [id number], [id number] ####[facility] [address] [place] [address] Creatinine [Mass/Vol] 0.6 mg/dL Normal 0.5-1.3 [facility] Comment on above: Performed By: #### 1 [id number], [id number] ####[facility] [address] [place] [address] Glucose [Mass/Vol] 259 mg/dL High 55-199 [facility] Comment on above: Result Comment: If t his glucose result represents a fasting glucose, interpretation should refer to the following reference range: 55-99 mg/dL Performed By: #### 1 [id number], [id number] ####[facility] [address] [place] [address] Potassium [Moles/Vol] 3.9 mmol/L Normal 3.5-5.3 [facility] Comment on above: Performed By: #### 1 [id number], [id number] ####[facility] [address] AveNsaint [place] [address] Sodium [Moles/Vol] 134 mmol/L Low 135-145 [facility] Comment on above: Performed By: #### 1 [id number], [id number] ####[facility] [address] [place] [address] Urea nitrogen [Mass/Vol] 14 mg/dL Normal 5-21 [facility] Comment on above: Performed By: #### 1 [id number], [id number] ####[facility] [address] [place] [address] Urea nitrogen/Creatinine [Mass ratio] 23 No Units High 10-20 [facility] Comment on above: Performed By: #### 1 [id number], [id number] ####[facility] [address] [place] [address] CHEMISTRYOrdered By: Lab ROP User on 07-13-2022 Glucose [Mass/Vol] 292 mg/dL High 55 - 99 mg/dL [facility] POC Subsection Comment on above: Result Comment: Shukri sandoval RN/ POC Device SN [id number] Invalid Interpretation Code [facility] POC Subsection POC User ID [id number] Invalid Interpretation Code [facility] POC Subsection POC Username PALAK HINSON Invalid Interpretation Code [facility] POC Subsection Glucose [Mass/Vol] 238 mg/dL High 55 - 99 mg/dL [facility] POC Subsection Comment on above: Result Comment: Shukri sandoval RN/ POC Device SN [id number] Invalid Interpretation Code [facility] POC Subsection POC User ID [id number] Invalid Interpretation Code [facility] POC Subsection POC Username PALAK HINSON Invalid Interpretation Code [facility] POC Subsection CHEMISTRYOrdered By: SYSTEM SYSTEM on 07-13-2022 Anion gap [Moles/Vol] 12 mmol/L Normal 6 - 16 mEq/L [facility] Remisol Calcium [Mass/Vol] 8.9 mg/dL Normal 8.9 - 11. 1 mg/dL [facility] Remisol Chloride [Moles/Vol] 102 mmol/L Normal 101 - 1 11 mmol/L FT Remisol CO2 [Moles/Vol] 24 mmol/L Normal 21 - 31 mmol/L [facility] Remisol Creatinine [Mass/Vol] 0.6 mg/dL Normal 0.5 - 1.3 mg/dL [facility] Remisol GFR/1.73 sq M.predicted among non-blacks MDRD (S/P/Bld) [Vol rate/Area] 131 mL/min/1.73 m2 Normal >=59mL/min/ 1.73 m2 [facility] Chem S Glucose [Mass/Vol] 259 mg/dL High 55 - 199 mg/dL [facility] Remisol Potassium [Moles/Vol] 3.9 mmol/L Normal 3.5 - 5.3 mmol/L [facility] Remisol Sodium [Moles/Vol] 134 mmol/L Low 135 - 145 mmol/L [facility] Remisol Urea nitrogen [Mass/Vol] 14 mg/dL Normal 5 - 21 mg/dL [facility] Remisol Urea nitrogen/Creatinine [Mass ratio] 23 mg/mg High 10 - 20 [facility] Remisol Capillary Glucose POCon 05-0 Glucose [Mass/Vol] 292 mg/dL High 55-99 [facility] Comment on above: Result Comment: Shukri FROST Performed By: #### 2 [id number] ####[facility] [address] [place] [address] Glucose [Mass/Vol] 238 mg/dL High 55-99 [facility] Comment on above: Result Comment: Shukri FROST Performed By: #### 2 [id number] ####[facility] [address] [place] [address] Discharge Instructionson Discharge Instructions [id number]#1. 00CD:127 Normal [facility] Discharge Note-Nursingon Discharge Note-Nursing Normal [facility] Ferritinon 07-13-2022 Ferritin [Mass/Vol] 126 ng/mL Normal 24-336 [facility] Comment on above: Result Comment: NORM ALS MEN <30 YRS 16-132 ng/mL MEN >30 YRS 8-338 ng/mL WOMEN (PREMEN) 6-104 ng/mL WOMEN (POSTMEN) 12-210 ng/mL Performed By: #### 1 [id number], [id number], [id number], [id number], [id number] ####[facility] [address] [place] [address] Inpatient Clinical Summaryon 07-13-2022 Inpatient Clinical Summary Normal [facility] Inpatient Patient Summaryon 07-13-2022 Inpatient Patient Summary Normal [facility] Inpatient Patient Summary Normal [facility] Interdisciplinary Note - Kane e Manageron 07-13-2022 Interdisciplinary Note - Nutrition Consultant Normal [facility] Comment on above: Result Comment: Elec tronically Signed By: Quang CEDILLO, Evie\.br\Date and Time Signed: 07/13/22 11:37 EDT Patient Education - Texton 0 07-13-2022 Patient Education - Text Normal [facility] eGFRon 07-13-2022 GFR/1.73 sq M.predicted among non-blacks MDRD (S/P/Bld) [Vol rate/Area] 131 mL/min/1.73 m2 Normal >=59 [facility] Comment on above: Order Comment: Order added by Discern Expert. Result Comment: Director Of Partnerships julián kidney disease could be indicated at eGFR's of less than 60 mL/min/1.73m2. Kidney failure is indicated at less than 15 mL/min/1.73m2. Performed By: #### 1 [id number], [id number] ####[facility] [address] [place] [address] BNPon 07-12-2022 Natriuretic peptide B (Bld) [Mass/Vol] pg/mL Normal 5-80 [facility] Comment on above: Performed By: #### 1 [id number] ####[facility] [address] [place] [address] CHEMISTRYOrdered By: Lab ROP User on 07-12-2022 Glucose [Mass/Vol] 284 mg/dL High 55 - 99 mg/dL [facility] POC Subsection Comment on above: Result Comment: Pamela fleming Meter POC Device SN [id number] Invalid Interpretation Code [facility] POC Subsection POC User ID [id number] Invalid Interpretation Code [facility] POC Subsection POC Username ARGELIA SHARIF Invalid Interpretation Code [facility] POC Subsection CHEMISTRYOrdered By: Cass Ryan on 07-12-2022 Natriuretic peptide B (Bld) [Mass/Vol] pg/mL Normal 5 - 80 pg/mL [facility] HemeManSS CHEMISTRYOrdered By: SYSTEM SYSTEM on 07-12-2022 CRP [Mass/Vol] 6.3 mg/dL High <=1.9mg/dL FT Remis ol Ferritin [Mass/Vol] 126 ng/mL Normal 24 - 336 ng/mL FT Remisol LDH [Catalytic activity/Vol] 160 [iU]/d Normal 93 - 218 Int._Unit/L FT Remisol Procalcitonin 0.10 ng/mL Normal 0.00 - 0.50 ng/mL [facility] Remisol Troponin I.cardiac [Mass/Vol] pg/mL Low 15.90 - 38.40 pg/mL [facility] Remisol COVID-19 ([facility])on 07-12-2022 Performing Instrument FT Waqas 2 Normal Fis [facility] Comment on above: Performed By: #### 2 [id number] ####[facility] [address] [place] [address] SARS-CoV-2 (COVID-19) RNA ECTOR+probe Ql (Resp) Not detected Normal Not Detected [facility] Comment on above: Result Comment: This test result should be correlated with clinical presentations and medical history by a healthcare provider to determine its clinical significance.This assay was performed by a reverse transcriptase real-time polymerase chain reaction (rt PCR) method on the [employer] system. This test has been authorized only [...] or revoked sooner. Performed By: #### 2 [id number] ####[place] [address] SARS-CoV-2 (COVID-19) RNA ECTOR+probe Ql (Unsp spec) Pass Normal Pass [facility] Comment on above: Performed By: #### 2 [id number] ####[place] [address] Specimen source Nom (Unsp spec) Nasal Normal [facility] Comment on above: Performed By: #### 2 [id number] ####[place] [address] ADMITTED TO INTENSIVE CARE UNIT FOR CONDITION OF INTEREST:FIND:PT: NO Normal [facility] Comment on above: Performed By: #### 2 [id number] ####[place] [address] EMPLOYED IN A HEALTHCARE SETTING:FIND:PT: NO Normal [facility] Comment on above: Performed By: #### 2 [id number] ####[place] [address] FIRST TEST FOR CONDITION OF INTEREST:FIND:PT: Unknown Normal [facility] Comment on above: Performed By: #### 2 [id number] ####[place] [address] HAS SYMPTOMS RELATED TO CONDITION OF INTEREST:FIND:PT: Unknown Normal [facility] Comment on above: Performed By: #### 2 [id number] ####[place] [address] HOSPITALIZED FOR CONDITION OF INTEREST:FIND:PT: YES Normal [facility] Comment on above: Performed By: #### 2 [id number] ####[place] [address] STATUS:FIND:PT: NO Normal [facility] Comment on above: Performed By: #### 2 [id number] ####[facility] [address] [place] [address] RESIDES IN A [facility] SETTING:FIND:PT: NO Normal [facility] Comment on above: Performed By: #### 2 [id number] ####[facility] [address] [place] [address] CRPon 07-12-2022 CRP [Mass/Vol] 6.3 mg/dL High <=1.9 [facility] Comment on above: Performed By: #### 1 [id number], [id number], 8366324, [id number], [id number] ####[facility] [address] [place] [address] CT Head or Brain w/o Contras ton 07-12-2022 CT Head or Brain w/o Contrast Normal [facility] CT Spine Cervical w/o Contra ston 07-12-2022 CT Spine Cervical w/o Contrast Normal [facility] CTA Cheston 07-12-2022 CTA Chest Normal [facility] Capillary Glucose POCon Glucose [Mass/Vol] 284 mg/dL High 55-99 [facility] Comment on above: Result Comment: Pamela fleming Meter Performed By: #### 2 [id number] ####[facility] [address] [place] [address] Glucose [Mass/Vol] 378 mg/dL High -99 [facility] Comment on above: Performed By: #### 2 [id number] ####[facility] [address] [place] [address] Glucose [Mass/Vol] 296 mg/dL High 55-99 [facility] Comment on above: Performed By: #### 2 [id number] ####[facility] [address] [place] [address] Glucose [Mass/Vol] 324 mg/dL High 55-99 [facility] Comment on above: Result Comment: Shukri sandoval RN/ Performed By: #### 2 [id number] ####[facility] [address] [place] [address] Glucose [Mass/Vol] 409 mg/dL High 55-99 [facility] Comment on above: Result Comment: Shukri sandoval RN/ Performed By: #### 2 [id number] ####[facility] [address] [place] [address] Consent for Treatmenton 05 Consent for Treatment [id number]#1 .00CD:127 Normal [facility] ED Clinical Summaryon 2022 ED Clinical Summary Normal [facility] ED Note-Physicianon 07-13-19 ED Note-Physician Normal [facility] Comment on above: Result Comment: Elec tronically Signed By: Marietta Guerrero DObr\Date and Time Signed: 07/12/22 01:02 EDT ED Patient Education Noteon 07-12-2022 ED Patient Education Note Normal [facility] ED Patient Summaryon 023 ED Patient Summary Normal [facility] EMS Documentationon 07-13-19 EMS Documentation Normal [facility] EMS Documentation Normal [facility] Influenza A&B Agon Influenzae A Ag Negative Normal Negative [facility] Comment on above: Performed By: #### 1 [id number], [id number] ####[facility] [address] [place] [address] Influenzae B Ag Negative Normal Negative [facility] Comment on above: Result Comment: Test sensitivity and specificity vary for age group, specimen type, antigen types, and prevalence of disease. Test results must be evaluated in conjunction with other clinical data available to the physician. Individuals who received nasally administered Influenza A vaccine may have positive test results up to 3 days after vaccination. Performed By: #### 1 [id number], [id number] ####[facility] [address] [place] [address] Insurance Correspondence Off ice07-12-2022 Insurance Correspondence Office [id number]# 1.00CD:127 Normal [facility] Interdisciplinary Note - Kane e Manageron 07-12-2022 Interdisciplinary Note - Nutrition Consultant Normal [facility] Comment on above: Result Comment: Elec tronically Signed By: Cass Loera.hilda\Date and Time Signed: 07/12/22 12:26 EDT LDHon 07-12-2022 LDH [Catalytic activity/Vol] 160 Int._Unit/L Normal 93-218 [facility] Comment on above: Performed By: #### 1 [id number], 5402859, 9489597, [id number], [id number] ####[facility] [address] [address] Monitor Recordon 07-12-2022 Monitor Record [id number]# 1.00CD:127 Normal [facility] Monitor Record [id number]# 1.00CD:127 Normal [facility] Monitor Record [id number]# 1.00CD:127 Normal [facility] Procalcitoninon 07-12-2022 Procalcitonin .10 ng/mL Normal .00-.50 [facility] Comment on above: Result Comment: <0.5 ng/mL [...] to 24 hours. Performed By: #### 1 [id number], 7152673, 0951761, [id number], [id number] ####[facility] [address] [place] [address] RAD - Preliminary Cat Scan R eporton 07-12-2022 RAD - Preliminary Cat Scan Report [id number]#1 .00CD:127 Normal [facility] Rapid COVID Antigen ([facility])on 07-12-2022 Rapid COV Int NEG Ctl Pass Normal [facility] Comment on above: Performed By: #### 1 [id number], [id number] ####[facility] [address] [place] [address] Rapid COV Int POS Ctl Pass Normal [facility] Comment on above: Performed By: #### 1 [id number], [id number] ####[facility] [address] [place] [address] SARS-CoV+SARS-CoV-2 (COVID-19) Ag IA.rapid Ql (Resp) Not detected Normal Not Detected [facility] Comment on above: Result Comment: The [employer]? System for Rapid Detection of SARS-CoV-2 is [...] or revoked sooner. Performed By: #### 1 [id number], [id number] ####[facility] [facility] [address] [place] [address] Troponin 3 Hr.on 07-12-2022 Troponin I.cardiac [Mass/Vol] 2.30 pg/mL Low 15.90-38.40 [facility] Comment on above: Result Comment: The 95% CI (Confidence Interval) PPV (Positive Predictive Value) for myocardial infarction in females is 38 pg/mL, in males 51 pg/mL. The results should be used in conjunction with clinical conditions of myocardial infarction.(Access High Sensitivity Troponin I Instructions For Use, [employer] October 2017) Performed By: #### 1 [id number] ####[facility] [address] [place] [address] Troponin 6 Hr.on 07-12-2022 Troponin I.cardiac [Mass/Vol] ng/mL Low 15.90-38.40 [facility] Comment on above: Result Comment: The 95% CI (Confidence Interval) PPV (Positive Predictive Value) for myocardial infarction in females is 38 pg/mL, in males 51 pg/mL. The results should be used in conjunction with clinical conditions of myocardial infarction.(DoveCon[employer]ene High Sensitivity Troponin I Instructions For Use, [employer] October 2017) Performed By: #### 1 [id number], 2757539, 9804055, 9700528, [id number] ####[address] [place] [address] UA With Cult Reflexon 2022 Bacteria LM Ql (Urine sed) 1+ /HPF Abnormal Trace [facility] Comment on above: Performed By: #### 2 618778, [id number] ####[facility] [address] [place] [address] Bilirubin Ql (U) Negative Normal Negative [facility] Comment on above: Performed By: #### 2 064594, [id number] ####[facility] [address] [place] [address] Clarity (U) CLEAR Normal Clear [facility] Comment on above: Performed By: #### 2 241087, [id number] ####[facility] [address] [place] [address] Color (U) YELLOW Normal Yellow [facility] Comment on above: Performed By: #### 2 079741, [id number] ####[facility] [address] [place] [address] Epithelial cells.squamous LM.HPF (Urine sed) [#/Area] 3-4 Normal 0-2 [facility] Comment on above: Performed By: #### 2 271436, [id number] ####[facility] [address] [place] [address] Glucose Test strip (U) [Mass/Vol] 2+ Abnormal Negative [facility] Comment on above: Performed By: #### 2 639528, 68938850 ####[facility] [address] [place] [address] Hemoglobin Ql (U) TRACE Abnormal Negative [facility] Comment on above: Performed By: #### 2 537431, [id number] ####[facility] [address] [place] [address] Ketones (U) [Mass/Vol] Negative Normal Negative [facility] Comment on above: Performed By: #### 2 795903, [id number] ####[facility] [address] [place] [address] [place].plasma/[place]ub[place]. RBC (Bld) [Mass ratio] 4-20 Normal 0-3 [facility] Comment on above: Performed By: #### 2 058998, [id number] ####[facility] [address] [facility] [place] [address] Mucus Ql (Urine sed) 1+ Normal [facility] Comment on above: Performed By: #### 2 717285, 39120001 ####[facility] [address] [place] [address] Nitrite Ql (U) Positive Abnormal Negative [facility] Comment on above: Performed By: #### 2 172220, [id number] ####[address] [address] pH (U) 6.0 [pH] Invalid Interpretation Code 5.0-9.0 [facility] Comment on above: Performed By: #### 2 486879, [id number] ####[address] [address] Protein (U) [Mass/Vol] 2+ Abnormal Negative [facility] Comment on above: Performed By: #### 2 545716, [id number] ####[address] [address] Specific gravity (U) [Rel density] 1.020 Invalid Interpretation Code 1.005-1.030 [facility] Comment on above: Performed By: #### 2 335063, [id number] ####[address] [address] Type of Urine collection method Clean Catch Normal [facility] Comment on above: Performed By: #### 2 670021, 15382245 ####[address] [address] Urobilinogen Qn (U) 0.2 {Chintan'U}/dL Normal 0.0-1.0 [facility] Comment on above: Performed By: #### 2 284272, 60019900 ####[address] [address] WBC Auto Ql (U) Negative Normal Negative [facility] Comment on above: Performed By: #### 2 626767, 38649944 ####[address] [address] WBC LM.HPF (Urine sed) [#/Area] 6-15 Abnormal 0-5 [facility] Comment on above: Performed By: #### 2 162248, [id number] ####[facility] [address] [place] [address] XR Chest Single Viewon 07-12 XR Chest Single View Normal Fish er [facility] Auto Diffon 07-11-2022 Basophils/100 WBC (Bld) 0.2 % Normal 0.0-2.0 [facility] Comment on above: Order Comment: Order Added by Discern Expert. Performed By: #### 2 249171, 30527366, 3600043, 3000307, 1328072, 7445785, 87797776, 0713918, 0425145, 69150060 ####[facility] [address] [place] [address] Basophils/Leukocytes Auto (Bld) [Pure # fraction] 0.0 E9/L Normal 0.0-0.2 [facility] Comment on above: Order Comment: Order Added by Discern Expert. Performed By: #### 2 815752, 08612791, 5152901, 3819886, 1483282, 5969602, 96368087, 7453326, 3312139, 09053468 ####[facility] [address] [place] [address] Eosinophils/100 WBC (Bld) 0.3 % Normal 0.0-8.0 [facility] Comment on above: Order Comment: Order Added by Discern Expert. Performed By: #### 2 169246, 70580297, 1810494, 0439211, 6137480, 1608565, 07676143, 4347228, 6004410, 29086120 ####[facility] [address] [place] [address] Eosinophils/Leukocytes Auto (Bld) [Pure # fraction] 0.0 E9/L Normal 0.0-0.5 [facility] Comment on above: Order Comment: Order Added by Discern Expert. Performed By: #### 2 334461, 76506388, 4636542, 2285329, 8242868, 5884387, 70066572, 6297786, 4152191, 82983117 ####[address] [place] [address] Lymphocytes/100 WBC (Bld) 15.1 % Normal 14.0-50.0 [facility] Comment on above: Order Comment: Order Added by Discern Expert. Performed By: #### 2 631272, 31866915, 1450543, 8688523, 6445548, 2597601, 06448960, 5463308, 8229726, 93311100 ####[address] [place] [address] Lymphocytes/Leukocytes Auto (Bld) [Pure # fraction] 1.0 E9/L Normal 1.0-4.0 [facility] Comment on above: Order Comment: Order Added by Discern Expert. Performed By: #### 2 298665, 35574084, 9815333, 7244141, 6654534, 8141854, 38587697, 0803334, 7974186, 33912691 ####[address] [address] Monocytes/100 WBC (Bld) 8.3 % Normal 4.0-14.0 [facility] Comment on above: Order Comment: Order Added by Discern Expert. Performed By: #### 2 335129, 80917016, 9332073, 8519883, 5712654, 1113041, 70769419, 7630283, 9584683, 33243019 ####[address] [place] [address] Monocytes/Leukocytes Auto (Bld) [Pure # fraction] 0.6 E9/L Normal 0.2-1.0 [facility] Comment on above: Order Comment: Order Added by Discern Expert. Performed By: #### 2 993381, 42974651, 2677554, 3170460, 5728456, 4274269, 09235023, 8515102, 9654651, 30145027 ####[address] [place] [address] Neutrophils/100 WBC (Bld) 76.1 % High 36.0-75.0 [facility] Comment on above: Order Comment: Order Added by Discern Expert. Performed By: #### 2 640988, 10526511, 7472910, 8471120, 0922888, 2697587, 92050564, 8129146, 1032314, 10217811 ####[facility] [address] [place] [address] Neutrophils/Leukocytes Auto (Bld) [Pure # fraction] 5.2 E9/L Normal 2.0-7.5 [facility] Comment on above: Order Comment: Order Added by Discern Expert. Performed By: #### 2 574075, 51720069, 4686671, 2375937, 0184919, 0949354, 38128547, 4769860, 0393868, 49002304 ####[facility] [address] [place] [address] BMPon 07-11-2022 Creatinine [Mass/Vol] 1.1 mg/dL Normal 0.5-1.3 [facility] Comment on above: Performed By: #### 2 771969, 99931859, 9913281, 6397985, 5747530, 5357214, 85902206, 9898197, 4179867, 57592067 ####[facility] [address] [place] [address] Urea nitrogen [Mass/Vol] 11 mg/dL Normal 5-21 [facility] Comment on above: Performed By: #### 2 973991, 98860801, 6324365, 4002611, 1798272, 9279517, 55505781, 2970570, 2598158, 07079512 ####[facility] [address] [place] [address] Urea nitrogen/Creatinine [Mass ratio] 10 No Units Normal 10-20 [facility] Comment on above: Performed By: #### 2 102427, 27182858, 5373386, 0021953, 7264724, 2702606, 89808907, 2450994, 1776082, 53232023 ####[facility] [address] [facility] [place] [address] Anion gap [Moles/Vol] 16 mmol/L Normal 6-16 [facility] Comment on above: Performed By: #### 2 700768, 52111386, 0955993, 1006613, 1818572, 9740403, 87817915, 8952719, 9335240, 84078026 ####[facility] [address] [place] [address] Calcium [Mass/Vol] 8.9 mg/dL Normal 8.9-11.1 [facility] Comment on above: Performed By: #### 2 433845, 45285363, 8271067, 1344154, 6006906, 9298119, 29219341, 4918234, 3644206, 02175409 ####[facility] [address] [place] [address] Chloride [Moles/Vol] 98 mmol/L Low 101-111 Fish [facility] Comment on above: Performed By: #### 2 535560, 22515348, 7064984, 0208361, 3126418, 4784473, 42082401, 6099913, 3123781, 43343406 ####[facility] [address] [place] [address] CO2 [Moles/Vol] 24 mmol/L Normal 21-31 [facility] Comment on above: Performed By: #### 2 921570, 16882099, 8975346, 9866322, 9139351, 8775071, 37342460, 7595135, 9292522, 03305508 ####[facility] [address] [place] [address] Glucose [Mass/Vol] 309 mg/dL High 55-199 [facility] Comment on above: Result Comment: If t his glucose result represents a fasting glucose, interpretation should refer to the following reference range: 55-99 mg/dL Performed By: #### 2 202704, 06938693, 9328551, 6232372, 3489706, 3809344, 73952739, 8114618, 9947409, 88224587 ####[facility] [address] [place] [address] Potassium [Moles/Vol] 4.7 mmol/L Normal 3.5-5.3 [facility] Comment on above: Performed By: #### 2 132561, 09540741, 4576348, 8892364, 8639923, 0153047, 76552903, 9061218, 8569851, 92804357 ####[facility] [address] [place] [address] Sodium [Moles/Vol] 133 mmol/L Low 135-145 [facility] Comment on above: Performed By: #### 2 935098, 69132185, 5139304, 5917617, 3663315, 9378527, 45790635, 6728552, 8781729, 46409795 ####[address] [place] [address] CBC w/ Auto Diffon 3 Erythrocyte distribution width (RBC) [Ratio] 14.5 % High 10.9-14.2 [facility] Comment on above: Performed By: #### 2 807955, 82422675, 6571899, 5180279, 5727533, 4363254, 28783679, 7253059, 9360222, 75530285 ####[address] [place] [address] Hematocrit (Bld) [Volume fraction] 44.2 % Normal 37.7-49.0 [facility] Comment on above: Performed By: #### 2 540177, 87912352, 9338460, 2775531, 1333600, 8826772, 49626411, 9437008, 6172595, 17889113 ####[address] [place] [address] Hemoglobin (Bld) [Mass/Vol] 15.0 g/dL Normal 13.5-17.5 [facility] Comment on above: Performed By: #### 2 177054, 08384418, 9052407, 6497332, 5104010, 4376707, 64335274, 3790341, 6776852, 45236058 ####[facility] [address] [place] [address] MCH (RBC) [Entitic mass] 31.8 pg Normal 27.0-34.0 [facility] Comment on above: Performed By: #### 2 265682, 47872015, 7954475, 5618613, 7368110, 1583414, 08350637, 8197227, 4389164, 16870126 ####[address] [place] [address] MCHC (RBC) [Mass/Vol] 34.0 g/dL Normal 31.4-36.0 [facility] Comment on above: Performed By: #### 2 901825, 87340942, 9637193, 1537125, 5300183, 9741850, 63564942, 8945007, 8091225, 01207618 ####[address] [address] MCV (RBC) [Entitic vol] 93.3 fL Normal 80.0-100.0 [facility] Comment on above: Performed By: #### 2 059380, 72953826, 0850537, 4396839, 4356236, 4970107, 91429479, 8332321, 7740150, 99633801 ####[facility] [address] [place] [address] Platelet mean volume (Bld) [Entitic vol] 9.4 fL Normal 6.4-10.8 [facility] Comment on above: Performed By: #### 2 983460, 82490147, 4589645, 4397770, 3539827, 1284079, 63427447, 5187272, 3149739, 95133611 ####[address] [place] [address] Platelets (Bld) [#/Vol] 191.0 E9/L Normal 150.0-500.0 [facility] Comment on above: Performed By: #### 2 588327, 68590548, 7036614, 2241170, 1808519, 3885802, 54522208, 3211229, 5040227, 95832119 ####[facility] [address] [place] [address] RBC (Bld) [#/Vol] 4.7 E12/L Normal 4.3-5.9 [facility] Comment on above: Performed By: #### 2 266523, 42814608, 5275514, 8068889, 2625852, 5958826, 03989238, 0507223, 6683325, 95255844 ####[facility] [address] [place] [address] WBC corrected for nucl RBC Auto (Bld) [#/Vol] 6.8 E9/L Normal 4.0-11.0 [facility] Comment on above: Performed By: #### 2 692077, 53677414, 6017523, 1622731, 6985260, 7151288, 87220772, 1767362, 6459200, 63986284 ####[facility] [address] [place] [address] CHEMISTRYOrdered By: SYSTEM SYSTEM on 07-11-2022 Troponin [...] ratio] 10 mg/mg Normal 10 - 20 [facility] Remisol COAGULATIONOrdered By: Aura Qiu on 07-11-2022 aPTT Coag (PPP) [Time] 30.5 s Normal 25.1 - 36.5 second(s) [facility] Auto Coag Fibrin D-dimer FEU (PPP) [Mass/Vol] 1690 ng/mL FEU Invalid Interpretation Code 215 - 500 ng/mL FEU [facility] Auto Coag Comment on above: Result Comment: Resu lts Called To er dr guerrero By ts And Read Back For Confirmation On 07/11/2022 20:41:56 EDT Results Verified By Repeat Analysis INR Coag (PPP) [Relative time] 1.1 {INR} Invalid Interpretation Code [facility] Auto Coag PT Coag (PPP) [Time] 12.0 s Normal 9.4 - 1 2.5 second(s) [facility] Auto Coag Capillary Glucose POCon Glucose [Mass/Vol] 317 mg/dL High 55-99 [facility] Comment on above: Result Comment: Shukri sandoval RN/ Performed By: #### 2 [id number] ####[facility] [address] D-Dimeron 07-11-2022 Fibrin D-dimer FEU (PPP) [Mass/Vol] 1690 [id number] Abnormal 215-500 [facility] Comment on above: Result Comment: Resu lts [...] skin infectionsLiver cirrhosisPregnancy Performed By: #### 2 344804, 91431861, 4649257, 2304228, 2797551, 5052440, 43238458, 9933676, 7485588, 63300790 ####[facility]io [facility] [address] [place] [address] ED Note-Nursingon 07-11-2022 ED Note-Nursing Normal [facility] HEMATOLOGYOrdered By: SYSTEM SYSTEM on 07-11-2022 Basophils/100 [...] 4.7 E12/L Normal 4.3 - 5.9 E12/L [facility] HemeAutoSS WBC corrected for nucl RBC Auto (Bld) [#/Vol] 6.8 E9/L Normal 4.0 - 11.0 E9/L [facility] HemeAutoSS Hep Func Panelon 07-11-2022 Albumin [Mass/Vol] 3.8 g/dL Normal 3.3-5.0 [facility] Comment on above: Performed By: #### 2 794216, 85923064, 5128646, 6171446, 2863690, 8089588, 32562240, 6745011, 2560602, 22499631 ####[facility] [address] [place] [address] Albumin/Globulin (S) [Mass conc ratio] 1.0 Low 1.1-2.2 [facility] Comment on above: Performed By: #### 2 536481, 18760302, 4290556, 3589126, 9971698, 1059342, 44079394, 2657447, 7831937, 05495282 ####[facility] [address] [place] [address] ALP [Catalytic activity/Vol] 92 Int._Unit/L Normal 21-98 [facility] Comment on above: Performed By: #### 2 150998, 03841350, 8884513, 7296728, 9982960, 6978857, 76414190, 0390861, 9555899, 49893647 ####[facility] [address] [place] [address] ALT No additional P-5'-P [Catalytic activity/Vol] 37 Int._Unit/L Normal 6-46 [facility] Comment on above: Performed By: #### 2 038273, 66800618, 5031982, 7864597, 3045210, 7640643, 52876124, 1594851, 0057797, 95010210 ####[address] [address] AST [Catalytic activity/Vol] 28 Int._Unit/L Normal 5-43 [facility] Comment on above: Performed By: #### 2 755447, 51284328, 1900749, 1388547, 2127073, 0722789, 49605227, 2992136, 2320056, 15534476 ####[address] [address] Bilirubin [Mass/Vol] 1.2 mg/dL High 0.0-1.1 [facility] [place] Comment on above: Performed By: #### 2 423819, 65586962, 4707422, 1874223, 4177395, 5750601, 03723940, 1563228, 1351063, 66747275 ####[address] [place] [address] Bilirubin.direct [Mass/Vol] 0.2 mg/dL Normal 0.1-0.4 [facility] Comment on above: Performed By: #### 2 658601, 87198420, 1122424, 3632613, 9913719, 8268760, 40165168, 2954214, 8817610, 58097356 ####[facility] [address] [place] [address] Bilirubin.indirect [Mass or moles/Vol] 1.0 mg/dL High 0.1-0.9 [facility] Comment on above: Performed By: #### 2 562989, 14755645, 5909854, 6332565, 7075887, 6175476, 56117286, 5491169, 4071458, 88337563 ####[facility] [address] [place] [address] Globulin (S) [Mass/Vol] 3.7 g/dL Normal 1.4-4.0 [facility] Comment on above: Performed By: #### 2 506800, 81151322, 5292259, 7478194, 0530484, 5093436, 32369473, 9178617, 4484044, 00322161 ####[facility] [address] [place] [address] Protein [Mass/Vol] 7.5 g/dL Normal 6.0-7.8 [facility] Comment on above: Performed By: #### 2 529998, 10542123, 3592107, 4227169, 9863331, 2592744, 01717254, 8319111, 4913885, 28032205 ####[facility] [address] [place] [address] Laboratory - Microbiology an d Antimicrobial susceptibilityOrdered By: Lupe Barnard on 07-11-2022 Bacteria identified Cx Nom (U) >100,000 cfu/ml Staphylococcus species Coagulase Positive [facility] MICRO OTHER TESTSOrdered By: Mariana Doyle on 07-11-2022 Influenzae A Ag Negative (07/11/22 10:22 PM) Normal Negative [facility] Man Sero Influenzae B Ag Negative (07/11/22 10:22 PM) Normal Negative FT Man Sero Rapid COV Int NEG Ctl Pass (07/11/22 10:22 PM) Normal FT Man Sero Rapid COV Int POS Ctl Pass (07/11/22 10:22 PM) Normal [facility] Man Sero SARS-CoV+SARS-CoV-2 (COVID-19) Ag IA.rapid Ql (Resp) Not Detected (07/11/22 10:22 PM) Normal Not Detected FT Man Sero Magnesiumon 07-11-2022 Magnesium [Mass/Vol] 1.4 mg/dL Normal 1.3-2.4 [facility] [place] Comment on above: Performed By: #### 2 043244, 71211650, 9815561, 3894016, 2027712, 0777567, 73263760, 1560024, 4643153, 58323668 ####[facility] [address] [place] [address] Monona Screenon 07-11-2022 Heterophile Ab LA Ql (S) Negative Normal Negative [facility] Comment on above: Performed By: #### 2 961330, 45950337, 0133679, 5277535, 1307251, 4727684, 12555888, 1292250, 1370664, 52737705 ####[facility] [address] [place] [address] PT & PTTon 07-11-2022 aPTT Coag (PPP) [Time] 30.5 second(s) Normal 25.1-36.5 [facility] Comment on above: Result Comment: Para meter [...] the same coagulation reagent and instrumentation as [facility]. Currently there are no coagulation studies available worldwide for children to 14 days, and no normal ranges. Heparin therapeutic range (represented by Anti-Factor Xa activity of 0.2 - 0.4 U/mL) corresponds to PTT of 56.6 - 109.0 sec. Performed By: #### 2 846130, 16105974, 5690874, 1019579, 9429427, 6466632, 26204340, 8924119, 0038832, 25808111 ####[facility] [address] [place] [address] INR Coag (PPP) [Relative time] 1.1 {INR} Invalid Interpretation Code [facility] Comment on above: Result Comment: INR results are specifically intended to assess patients stabilized on long-term Anticoagulation therapy suggested INR?s ?Less Intensive Anticoagulation? 2.0 ? 3.0Conventional Range 3.0 ? 4.5 Performed By: #### 2 085440, 41138747, 1013267, 3825140, 3592503, 8633918, 18131378, 6359271, 7936965, 84054596 ####[facility] [address] [place] [address] PT Coag (PPP) [Time] 12.0 second(s) Normal 9.4-12.5 [facility] Comment on above: Result Comment: 15 d [...] the same coagulation reagent and instrumentation as [facility]. Currently there are no coagulation studies available worldwide for children to 14 days, and no normal ranges. Performed By: #### 2 588536, 49684137, 6727065, 9459867, 8749002, 1539977, 54837416, 3331262, 5871113, 63030097 ####[facility] [address] [place] [address] Pre-Arrival Noteon Pre-Arrival Note Normal [facility] Rapid COVID Antigen ([facility]on 07-11-2022 ADMITTED TO INTENSIVE CARE UNIT FOR CONDITION OF INTEREST:FIND:PT: NO Normal [facility] Comment on above: Performed By: #### 1 4795259, [id number] ####[place] [address] EMPLOYED IN A HEALTHCARE SETTING:FIND:PT: NO Normal [facility] Comment on above: Performed By: #### 1 7081163, [id number] ####[place] [address] FIRST TEST FOR CONDITION OF INTEREST:FIND:PT: YES Normal [facility] Comment on above: Performed By: #### 1 0971743, [id number] ####[place] [address] HAS SYMPTOMS RELATED TO CONDITION OF INTEREST:FIND:PT: YES Normal [facility] Comment on above: Performed By: #### 1 8910494, [id number] ####[place] [address] HOSPITALIZED FOR CONDITION OF INTEREST:FIND:PT: NO Normal [facility] Comment on above: Performed By: #### 1 6303540, [id number] ####[place] [address] STATUS:FIND:PT: NO Normal [facility] Comment on above: Performed By: #### 1 7883583, [id number] ####[place] [address] [facility]:FIND:PT: NO Normal [facility] Comment on above: Performed By: #### 1 [id number], [id number] ####[place] [address] SEROLOGYOrdered By: Aura humphrey on 07-11-2022 Heterophile Ab LA Ql (S) Negative (07/11/22 8:19 PM) Normal Negative [facility] [place] Sero Troponin 0 Hr.on 07-11-2022 Troponin I.cardiac [Mass/Vol] 4.40 pg/mL Low 15.90-38.40 [facility] Comment on above: Result Comment: The 95% CI (Confidence Interval) PPV (Positive Predictive Value) for myocardial infarction in females is 38 pg/mL, in males 51 pg/mL. The results should be used in conjunction with clinical conditions of myocardial infarction.(Access High Sensitivity Troponin I Instructions For Use, Savana Brodhead, October 2017) Performed By: #### 2 [id number], [id number], [id number], [id number] ####[facility] [id number] [place] [address] URINALYSISOrdered By: Cortez Doyle on 07-11-2022 Bacteria [...] PM) Normal Negative [facility] UA Auto SS [place].plasma/[place]. RBC (Bld) [Mass ratio] 4-20 /HPF Normal 0-3/HPF [facility] UA A uto SS Mucus Ql (Urine sed) 1+ (07/11/22 10:00 PM) Normal [facility] UA Auto SS Nitrite Ql (U) Positive *ABN* (07/11/22 10:00 PM) Invalid Interpretation Code Negative [facility] UA Auto SS pH (U) 6.0 *NA* (07/11/22 10:00 PM) Invalid Interpretation Code 5.0 - 9.0 [facility] [place] UA Auto SS Protein (U) [Mass/Vol] 2+ *ABN* (07/11/22 10:00 PM) Invalid Interpretation Code Negative [facility] [place] UA Auto SS Specific gravity (U) [Rel density] 1.020 *NA* (07/11/22 10:00 PM) Invalid Interpretation Code 1.005 - 1.030 [facility] [place] UA Auto SS UA Spec Desc Clean Catch (07/11/22 10:00 PM) Normal [facility] [place] UA Auto SS Urobilinogen Qn (U) [id number] {Chintan'U}/dL Normal 0.0 - 1.0 EU/dL [facility] [place] UA Auto SS WBC Auto Ql (U) Negative (07/11/22 10:00 PM) Normal Negative [facility] [place] UA Auto SS WBC LM.HPF (Urine sed) [#/Area] 6-15 /HPF Invalid Interpretation Code 0-5/HPF [facility] [place] UA Auto SS eGFRon 07-11-2022 GFR/1.73 sq M.predicted among non-blacks MDRD (S/P/Bld) [Vol rate/Area] 91 mL/min/1.73 m2 Normal >=59 [facility] Comment on above: Order Comment: Order added by Discern Expert. Result Comment: Director Of Partnerships julián kidney disease could be indicated at eGFR's of less than 60 mL/min/1.73m2. Kidney failure is indicated at less than 15 mL/min/1.73m2. Performed By: #### 2 [id number], [id number] ####[facility] [address] [place] [address] POINT OF CARE GLUCOSEon Glucose [Mass/Vol] 512 mg/dL Critically high 74-106 [facility] Comment on above: Result Comment: Resu lt Not Confirmed Performed By: #### S EDR #### [facility] [address] [address] [address] Travis Sanchez CBC AUTO DIFFon 06-19-2022 BASO # 0.0 103/ul Normal 0.0-0.1 [facility] Comment on above: Performed By: #### C BC #### [facility] [address] [address] [address] Travis Sanchez Basophils/100 WBC (Bld) 0.1 % Critically low 0.2-2.0 [facility] Comment on above: Performed By: #### C BC #### [facility] [address] [place] [address] Dr. Travis Sanchez EO # 0.0 103/ul Normal 0.0-0.7 [facility] Comment on above: Performed By: #### C BC #### [facility] [address] [place] [address] Dr. Travis Sanchez Eosinophils/100 WBC (Bld) 0.1 % Critically low 0.9-7.0 [facility] Comment on above: Performed By: #### C BC #### [facility] [address] [place] [address] Dr. Travis Sanchez Erythrocyte distribution width (RBC) [Ratio] 13.6 % Normal 11.0-15.0 [facility] Comment on above: Performed By: #### C BC #### [facility] [address] [place] [address] Dr. Travis Sanchez Hematocrit (Bld) [Volume fraction] 41.6 % Critically low 42.0-54.0 [facility] Comment on above: Performed By: #### C BC #### [facility] [address] [place] [address] Dr. Travis Sanchez Hemoglobin (Bld) [Mass/Vol] 13.9 g/dL Critically low 14.0-18.0 [facility] Comment on above: Performed By: #### C BC #### [facility] [address] [place] [address] Dr. Travis Sanchez IG # 0.05 10e3/ul Critically high 0.00-0.03 [facility] Comment on above: Performed By: #### C BC #### [facility] [address] [place] [address] Dr. Travis Sanchez IG % 0.5 % Normal 0.0-0.5 [facility] Comment on above: Performed By: #### C BC #### [facility] [address] [address] [address] Travis Sanchez LYMPH # 1.1 103/ul Critically low 1.2-3.8 [facility] Comment on above: Performed By: #### C BC #### [facility] [address] [address] [address] Travis Sanchez Lymphocytes/100 WBC (Bld) 12.2 % Critically low 20.5-60.0 [facility] Comment on above: Performed By: #### C BC #### [facility] [address] [place] [address] Dr. Travis Sanchez MANUAL DIFF REQ NO Normal [facility] Comment on above: Performed By: #### C BC #### [facility] [address] [place] [address] Dr. Travis Sanchez MCH (RBC) [Entitic mass] 31.2 pg Normal 25.9-34.0 [facility] Comment on above: Performed By: #### C BC #### [facility] [address] [place] [address] Dr. Travis Sanchez MCHC (RBC) [Mass/Vol] 33.4 g/dL Normal 29.9-35.2 [facility] Comment on above: Performed By: #### C BC #### [facility] [address] [place] [address] Dr. Travis Sanchez MCV (RBC) [Entitic vol] 93.3 fL Normal 80.0-94.0 [facility] Comment on above: Performed By: #### C BC #### [facility] [address] [address] [address] Travis Sanchez MONO # 0.5 103/ul Normal 0.3-0.8 [facility] Comment on above: Performed By: #### C BC #### [facility] [address] [place] [address] Dr. Travis Sanchez Monocytes/100 WBC (Bld) 5.3 % Normal 1.7-12.0 [facility] Comment on above: Performed By: #### C BC #### [facility] [address] [address] [address] Travis Sanchez NEUT # 7.5 103/ul Critically high 1.4-6.5 [facility] Comment on above: Performed By: #### C BC #### [facility] [address] [address] [address] Travis Sanchez Neutrophils/100 WBC (Bld) 81.8 % Critically high 43.0-75.0 [facility] Comment on above: Performed By: #### C BC #### [facility] [address] [address] [address] Travis Sanchez Platelet mean volume (Bld) [Entitic vol] 10.6 fL Normal 9.5-13.5 [facility] Comment on above: Performed By: #### C BC #### [facility] [address] [place] [address] Dr. Travis Sanchez PLT 255 103/ul Normal 150-450 [facility] Comment on above: Performed By: #### C BC #### [facility] [address] [address] [address] Travis Sanchez RBC 4.46 106/ul Critically low 4.70-6.10 [facility] Comment on above: Performed By: #### C BC #### [facility] [address] [address] [address] Travis Sanchez WBC 9.1 103/ul Normal 4.0-11.0 [facility] Comment on above: Performed By: #### C BC #### [facility] [address] [place] [address] Dr. Travis Sanchez CRPon 06-19-2022 CRP 1.6 mg/dL Critically high <=1.0 [facility] Comment on above: Performed By: #### S EDR #### [facility] [address] [address] [address] Travis Sanchez PROF CHEM 8 (BAS METB)on Anion gap [Moles/Vol] 13.2 mmol/L Normal [facility] Comment on above: Performed By: #### S EDR #### [facility] [address] [address] [address] Travis Sanchez Calcium [Mass/Vol] 9.3 mg/dL Normal 8.5-10.1 [facility] Comment on above: Performed By: #### S EDR #### [facility] [address] [address] [address] Travis Sanchez Chloride [Moles/Vol] 103 mmol/L Normal 98-107 [facility] Comment on above: Performed By: #### S EDR #### [facility] [address] [address] [address] Travis Sanchez CO2 [Moles/Vol] 24.3 mmol/L Normal 21.0-32.[address] [facility] Comment on above: Performed By: #### S EDR #### [facility] [address] [place] [address] Dr. Travis Sanchez Creatinine [Mass/Vol] 0.72 mg/dL Normal 0.70-1.30 [facility] Comment on above: Performed By: #### S EDR #### [facility] [address] [place] [address] Dr. Travis Sanchez EGFR-AF LIBERIAN >60 Normal >=[address] [facility] Comment on above: Performed By: #### S EDR #### [facility] [address] [place] [address] Dr. Travis Sanchez EGFR-NON AF LIBERIAN >60 Normal >=60 [facility] Comment on above: Performed By: #### S EDR #### [facility] [address] [place] [address] Dr. Travis Sanchez Glucose [Mass/Vol] 290 mg/dL Critically high 74-106 [facility] Comment on above: Performed By: #### S EDR #### [facility] [address] [place] [address] Dr. Travis Sanchez Potassium [Moles/Vol] 4.5 mmol/L Normal 3.5-5.1 [facility] Comment on above: Performed By: #### S EDR #### [facility] [address] [place] [address] Dr. Travis Sanchez Sodium [Moles/Vol] 136 mmol/L Normal 136-145 [facility] Comment on above: Performed By: #### S EDR #### [facility] [address] [place] [address] Dr. Travis Sanchez Urea nitrogen [Mass/Vol] 20.0 mg/dL Critically high 7.0-18.0 [facility] Comment on above: Performed By: #### S EDR #### [facility] [address] [place] [address] Dr. Travis Sanchez Urea nitrogen/Creatinine [Mass ratio] 27.8 mg/mg Normal [facility] Comment on above: Performed By: #### S EDR #### [facility] [address] [place] [address] Dr. Travis Sanchez CBC AUTO DIFFon 06-18-2022 BASO # 0.0 103/ul Normal 0.0-0.1 [facility] Comment on above: Performed By: #### S EDR #### [facility] [address] [place] [address] Dr. Travis Sanchez Basophils/100 WBC (Bld) 0.2 % Normal 0.2-2.0 [facility] Comment on above: Performed By: #### S EDR #### [facility] [address] [place] [address] Dr. Travis Sanchez EO # 0.0 103/ul Normal 0.0-0.7 [facility] Comment on above: Performed By: #### S EDR #### [facility] [address] [place] [address] Dr. Travis Sanchez Eosinophils/100 WBC (Bld) 0.4 % Critically low 0.9-7.0 [facility] Comment on above: Performed By: #### S EDR #### [facility] [address] [place] [address] Dr. Travis Sanchez Erythrocyte distribution width (RBC) [Ratio] 13.9 % Normal 11.0-15.0 [facility] Comment on above: Performed By: #### S EDR #### [facility] [address] [address] [address] Travis Sanchez Hematocrit (Bld) [Volume fraction] 42.0 % Normal 42.0-54.0 [facility] Comment on above: Performed By: #### S EDR #### [facility] [address] [place] [address] Dr. Travis Sanchez Hemoglobin (Bld) [Mass/Vol] 14.2 g/dL Normal 14.0-18.0 [facility] Comment on above: Performed By: #### S EDR #### [facility] [address] [place] [address] Dr. Travis Sanchez IG # 0.03 10e3/ul Normal 0.00-0.03 [facility] Comment on above: Performed By: #### S EDR #### [facility] [address] [place] [address] Dr. Travis Sanchez IG % 0.4 % Normal 0.0-0.5 [facility] Comment on above: Performed By: #### S EDR #### [facility] [address] [place] [address] Dr. Travis Sanchez LYMPH # 1.7 103/ul Normal 1.2-3.8 [facility] Comment on above: Performed By: #### S EDR #### [facility] [address] [place] [address] Dr. Travis Sanchez Lymphocytes/100 WBC (Bld) 20.7 % Normal 20.5-60.0 [facility] Comment on above: Performed By: #### S EDR #### [facility] [address] [place] [address] Dr. Travis Sanchez MANUAL DIFF REQ NO Normal [facility] Comment on above: Performed By: #### S EDR #### [facility] [address] [place] [address] Dr. Travis Sanchez MCH (RBC) [Entitic mass] 31.8 pg Normal 25.9-34.0 [facility] Comment on above: Performed By: #### S EDR #### [facility] [address] [address] [address] Travis Sanchez MCHC (RBC) [Mass/Vol] 33.8 g/dL Normal 29.9-35.2 [facility] Comment on above: Performed By: #### S EDR #### [facility] [address] [address] [address] Travis Sanchez MCV (RBC) [Entitic vol] 94.0 fL Normal 80.0-94.0 [facility] Comment on above: Performed By: #### S EDR #### [facility] [address] [place] [address] Dr. Travis Sanchez MONO # 0.5 103/ul Normal 0.3-0.8 [facility] Comment on above: Performed By: #### S EDR #### [facility] [address] [place] [address] Dr. Travis Sanchez Monocytes/100 WBC (Bld) 5.9 % Normal 1.7-12.0 [facility] Comment on above: Performed By: #### S EDR #### [facility] [address] [place] [address] Dr. Travis Sanchez NEUT # 5.9 103/ul Normal 1.4-6.5 [facility] Comment on above: Performed By: #### S EDR #### [facility] [address] [place] [address] Dr. Travis Sanchez Neutrophils/100 WBC (Bld) 72.4 % Normal 43.0-75.0 [facility] Comment on above: Performed By: #### S EDR #### [facility] [address] [place] [address] Dr. Travis Sanchez Platelet mean volume (Bld) [Entitic vol] 11.3 fL Normal 9.5-13.5 [facility] Comment on above: Performed By: #### S EDR #### [facility] [address] [place] [address] Dr. Travis Sanchez PLT 236 103/ul Normal 150-450 [facility] Comment on above: Performed By: #### S EDR #### [facility] [address] [address] [address] Travis Sanchez RBC 4.47 106/ul Critically low 4.70-6.10 [facility] Comment on above: Performed By: #### S EDR #### [facility] [address] [address] [address] Travis Sanchez WBC 8.1 103/ul Normal 4.0-11.0 [facility] Comment on above: Performed By: #### S EDR #### [facility] [address] [address] [address] Travis Sanchez CRPon 06-18-2022 CRP 2.9 mg/dL Critically high <=1.0 [facility] Comment on above: Performed By: #### S EDR #### [facility] [address] [address] [address] Travis Sanchez Covid-19 PCR ([facility])on 06-06 SARS-CoV-2 (COVID-19) RNA ECTOR+probe Ql (Unsp spec) Not detected Normal NOT DETECTED [facility] Comment on above: Result Comment: When [...] for this test is supported by the [place] of Health and Human Service's declaration that [...] used). Performed By: #### C BC #### [facility] [address] [address] [address] Travis Sanchez MRI LSDARBY WO CONon 06-19-19 23 MRI [facility] WO CON HISTORY: Right-sided low back pain with radiculopathy for the past 2-3 weeks. The patient was found to have a large disc extrusion at the L4-L5 level on a recent CT scan. MRI [facility] WO CON: 06/18/2022 9:29 AM EDT COMPARISON: [...] by: GERTRUDIS CHAUHAN Date: 2022-06-18 13:13 Normal [facility] POINT OF CARE GLUCOSEon 06-06 Glucose [Mass/Vol] 352 mg/dL Critically high -106 [facility] Comment on above: Performed By: #### P OCGLUC #### [facility] [address] [address] [address] Travis Sanchez Glucose [Mass/Vol] 183 mg/dL Critically high [facility]106 [facility] Comment on above: Performed By: #### S EDR #### [facility] [address] [address] [address] Travis Sanchez Glucose [Mass/Vol] 178 mg/dL Critically high [address] [place] [address] Comment on above: Performed By: #### P OCGLUC #### [facility] [address] [address] [address] Travis Sanhcez Glucose [Mass/Vol] 252 mg/dL Critically high [facility]106 [facility] Comment on above: Performed By: #### P SASC #### [facility] [address] [address] [address] Travis Sanchez Glucose [Mass/Vol] 272 mg/dL Critically high [address] [place] [address] Comment on above: Performed By: #### S EDR #### [facility] [address] [address] [address] Travis Sanchez PROF CHEM 8 (BAS METB)on Anion gap [Moles/Vol] 15.3 mmol/L Normal [facility] Comment on above: Performed By: #### S EDR #### [facility] [address] [address] [address] Travis Sanchez Calcium [Mass/Vol] 8.6 mg/dL Normal 8.5-10.1 [facility] Comment on above: Performed By: #### S EDR #### [facility] [address] [address] [address] Travis Sanchez Chloride [Moles/Vol] 102 mmol/L Normal 98-107 [facility] Comment on above: Performed By: #### S EDR #### [facility] [address] [address] [address] Travis Sanchez CO2 [Moles/Vol] 25.1 mmol/L Normal 21.0-32.[address] [facility] Comment on above: Performed By: #### S EDR #### [facility] [address] [place] [address] Dr. Travis Sanchez Creatinine [Mass/Vol] 0.84 mg/dL Normal 0.70-1.30 [facility] Comment on above: Performed By: #### S EDR #### [facility] [address] [address] [address] Travis Sanchez EGFR-AF LIBERIAN >60 Normal >=[address] [facility] Comment on above: Performed By: #### S EDR #### [facility] [address] [address] [address] Travis Sanchez EGFR-NON AF LIBERIAN >60 Normal >=60 [facility] Comment on above: Performed By: #### S EDR #### [facility] [address] [address] [address] Travis Sanchez Glucose [Mass/Vol] 348 mg/dL Critically high 74-106 [facility] Comment on above: Performed By: #### S EDR #### [facility] [address] [address] [address] Travis Sanchez Potassium [Moles/Vol] 4.4 mmol/L Normal 3.5-5.1 [facility] Comment on above: Performed By: #### S EDR #### [facility] [address] [address] [address] Travis Sanchez Sodium [Moles/Vol] 138 mmol/L Normal 136-145 [facility] Comment on above: Performed By: #### S EDR #### [facility] [address] [address] [address] Travis Sanchez Urea nitrogen [Mass/Vol] 14.0 mg/dL Normal 7.0-18.0 [facility] Comment on above: Performed By: #### S EDR #### [facility] [address] [address] [address] Travis Sanchez Urea nitrogen/Creatinine [Mass ratio] 16.7 mg/mg Normal [facility] Comment on above: Performed By: #### S EDR #### [facility] [address] [address] [address] [facility] mm/hr Critically high <=15 [facility] Comment on above: Performed By: #### S EDR #### [facility] [address] [place] [address] LSPINE WO CONon [...] by: ELIUD HERNANDEZ Date: 2022-06-12 18:44 Normal [facility] Ambulatory Visit Summaryon 0 06-11-2022 Ambulatory Visit Summary Normal [facility] Patient Educationon 06-12-19 Patient Education Normal [facility] Urology Office/Clinic Noteon 06-11-2022 Urology Office/Clinic Note Normal [facility] Comment on above: Result Comment: Elec tronically Signed By: MARIANA BRIGGS PA-C\.br\Date and Time Signed: 06/11/22 09:07 EDT\.br\Electronically Co-Signed By: Alannah Ragland MA\.br\Date and Time Co-Signed: 06/11/22 09:01 EDT CBC AUTO DIFFon 05-24-2022 BASO # 0.1 103/ul Normal 0.0-0.1 [facility] Comment on above: Performed By: #### C BC #### [facility] [address] [place] [address] Dr. Travis Sanchez Basophils/100 WBC (Bld) 0.4 % Normal 0.2-2.0 [facility] Comment on above: Performed By: #### C BC #### [facility] [address] [place] [address] Dr. Travis Sanchez EO # 0.0 103/ul Normal 0.0-0.7 [facility] Comment on above: Performed By: #### C BC #### [facility] [address] [place] [address] Dr. Travis Sanchez Eosinophils/100 WBC (Bld) 0.3 % Critically low 0.9-7.0 [facility] Comment on above: Performed By: #### C BC #### [facility] [address] [place] [address] Dr. Travis Sanchez Erythrocyte distribution width (RBC) [Ratio] 14.3 % Normal 11.0-15.0 [facility] Comment on above: Performed By: #### C BC #### [facility] [address] [place] [address] Dr. Travis Sanchez Hematocrit (Bld) [Volume fraction] 41.2 % Critically low 42.0-54.0 [facility] Comment on above: Performed By: #### C BC #### [facility] [address] [place] [address] Dr. Travis Sanchez Hemoglobin (Bld) [Mass/Vol] 13.9 g/dL Critically low 14.0-18.0 [facility] Comment on above: Performed By: #### C BC #### [facility] [address] [place] [address] Dr. Travis Sanchez IG # 0.05 10e3/ul Critically high 0.00-0.03 [facility] Comment on above: Performed By: #### C BC #### [facility] [address] [place] [address] Dr. Travis Sanchez IG % 0.4 % Normal 0.0-0.5 [facility] Comment on above: Performed By: #### C BC #### [facility] [address] [place] [address] Dr. Travis Sanchez LYMPH # 1.2 103/ul Normal 1.2-3.8 [facility] Comment on above: Performed By: #### C BC #### [facility] [address] [place] [place] [address] Dr. Travis Sanchez Lymphocytes/100 WBC (Bld) 8.9 % Critically low 20.5-60.0 [facility] Comment on above: Performed By: #### C BC #### [facility] [address] [place] [address] Dr. Travis Sanchez MANUAL DIFF REQ NO Normal [facility] Comment on above: Performed By: #### C BC #### [facility] [address] [place] [address] Dr. Travis Sanchez MCH (RBC) [Entitic mass] 31.5 pg Normal 25.9-34.0 [facility] Comment on above: Performed By: #### C BC #### [facility] [address] [place] [address] Dr. Travis Sanchez MCHC (RBC) [Mass/Vol] 33.7 g/dL Normal 29.9-35.2 [facility] Comment on above: Performed By: #### C BC #### [facility] [address] [place] [address] Dr. Travis Sanchez MCV (RBC) [Entitic vol] 93.4 fL Normal 80.0-94.0 [facility] Comment on above: Performed By: #### C BC #### [facility] [address] [place] [address] Dr. Travis Sanchze MONO # 1.0 103/ul Critically high 0.3-0.8 [facility] Comment on above: Performed By: #### C BC #### [facility] [address] [place] [address] Dr. Travis Sanchez Monocytes/100 WBC (Bld) 7.3 % Normal 1.7-12.0 [facility] Comment on above: Performed By: #### C BC #### [facility] [address] [place] [address] Dr. Travis Sanchez NEUT # 11.4 103/ul Critically high 1.4-6.[address] [facility] Comment on above: Performed By: #### C BC #### [facility] [address] [place] [address] Dr. Travis Sanchez Neutrophils/100 WBC (Bld) 82.7 % Critically high 43.0-75.0 [facility] Comment on above: Performed By: #### C BC #### [facility] [address] [place] [address] Dr. Travis Sanchez Platelet mean volume (Bld) [Entitic vol] 11.0 fL Normal 9.5-13.5 [facility] Comment on above: Performed By: #### C BC #### [facility] [address] [place] [address] Dr. Travis Sanchez PLT 262 103/ul Normal 150-450 [facility] Comment on above: Performed By: #### C BC #### [facility] [address] [place], [place] [id number] Dr. Travis Sanchez RBC 4.41 106/ul Critically low 4.70-6.10 [facility] Comment on above: Performed By: #### C BC #### [facility] [address] [place] [address] Dr. Travis Sanchez WBC 13.8 103/ul Critically high 4.0-11.0 [facility] Comment on above: Performed By: #### C BC #### [facility] [address] [place], [place] [address] Dr. Travis Sanchez CRPon 05-24-2022 CRP 16.3 mg/dL Critically high <=1.0 [facility] Comment on above: Performed By: #### P SASC #### [facility] [address] [place], [place] [address] FACIAL BONES WO [...] by: SEGUN GALLEGOS Date: 2022-05-24 00:14 Normal [facility] LACTATE/LACTIC ACIDon 2022 Lactate [Moles/Vol] 1.3 mmol/L Normal 0.4-2.0 [facility] Comment on above: Performed By: #### C BC #### [facility] [address] [place] [address] Dr. Travis Sanchez POINT OF CARE GLUCOSEon 05-06 Glucose [Mass/Vol] 208 mg/dL Critically high 74-106 [facility] Comment on above: Performed By: #### P SASC #### [facility] [address] [place] [address] Dr. Travis Sanchez PROF CHEM 8 (BAS METB)on Anion gap [Moles/Vol] 13.9 mmol/L Normal [facility] Comment on above: Performed By: #### P SASC #### [facility] [address] [place] [address] Dr. Travis Sanchez Calcium [Mass/Vol] 8.8 mg/dL Normal 8.5-10.1 [facility] Comment on above: Performed By: #### P SASC #### [facility] [address] [place] [address] Dr. Travis Sanchez Chloride [Moles/Vol] 98 mmol/L Normal 98-107 [facility] Comment on above: Performed By: #### P SASC #### [facility] [address] [place] [address] [address] Travis Sanchez CO2 [Moles/Vol] 25.9 mmol/L Normal 21.0-32.[address] [facility] Comment on above: Performed By: #### P SASC #### [facility] [address] [place] [address] Dr. Travis Sanchez Creatinine [Mass/Vol] 0.74 mg/dL Normal 0.70-1.30 [facility] Comment on above: Performed By: #### P SASC #### [facility] [address] [place] [address] Dr. Travis Sanchez EGFR-AF LIBERIAN >60 Normal >=[address] [facility] Comment on above: Performed By: #### P SASC #### [facility] [address] [place] [address] Dr. Travis Sanchez EGFR-NON AF LIBERIAN >60 Normal >=60 [facility] Comment on above: Performed By: #### P SASC #### [facility] [address] [address] [address] Travis Sanchez Glucose [Mass/Vol] 203 mg/dL Critically high 74-106 T [facility] Comment on above: Performed By: #### P SASC #### [facility] [address] [place] [address] Dr. Travis Sanchez Potassium [Moles/Vol] 3.8 mmol/L Normal 3.5-5.1 [facility] Comment on above: Performed By: #### P SASC #### [facility] [address] [place] [address] [address] Travis Sanchez Sodium [Moles/Vol] 134 mmol/L Critically low 136-145 [facility] Comment on above: Performed By: #### P SASC #### [facility] [address] [place] [address] Dr. Travis Sanchez Urea nitrogen [Mass/Vol] 9.0 mg/dL Normal 7.0-18.0 [facility] Comment on above: Performed By: #### P SASC #### [facility] [address] [place] [address] Dr. Travis Sanchez Urea nitrogen/Creatinine [Mass ratio] 12.2 mg/mg Normal [facility] Comment on above: Performed By: #### P [facility] #### [facility] [address] [place], [place] [address] Dr. Travis Sanchez SED RATE WESTERGRENon 2022 SED RATE 61 mm/hr Critically high <=15 [facility] Comment on above: Performed By: #### S EDR #### [facility] [address] [place], [place] [address] Dr. Travis Sanchez Glucose Glucometer (BldC) [M ass/Vol]Ordered By: Dell Kim on 04-04-2022 Glucose [Mass/Vol] 144 mg/dL [facility] Comment on above: Random Glucose Refer ence Range is dependent on time and content of last meal. Glucose of more than 200 mg/dL in a nonstressed, ambulatory subject supports the diagnosis of Diabetes Mellitus. Glucose Poct Glucometerson 0 04-04-2022 Glucose [Mass/Vol] 144 mg/dL Normal [facility] Comment on above: Result Comment: [place] om Glucose Reference Range is dependent on time and content of last meal. Glucose of more than 200 mg/dL in a nonstressed, ambulatory subject supports the diagnosis of Diabetes Mellitus. PERFORMED BY: [facility] [address] [place] [address] PATHOLOGIST [employer]UMENT [employer] JOSSELYN ROSEN M.D. Performed By: #### G LULS #### Point of Care testing , Glucose Poct Glucometerson 0 04-03-2022 Glucose [Mass/Vol] 143 mg/dL Normal [facility] Comment on above: Result Comment: [place] om Glucose Reference Range is dependent on time and content of last meal. Glucose of more than 200 mg/dL in a nonstressed, ambulatory subject supports the diagnosis of Diabetes Mellitus. PERFORMED BY: [facility] [address] [address] PATHOLOGIST [employer]STRUMENT [employer] JOSSELYN ROSEN M.D. Performed By: #### G LULS #### Point of Care testing , Cholesterol [Mass/volume] in Serum or PlasmaOrdered By: Dell Kim on 04-02-2022 Cholesterol [Mass/Vol] 244 mg/dL 140-200 [facility] Comment on above: Chol less than 200 m g/dl low riskChol 201-239 mg/dl borderline riskChol 240 mg/dl and greater high risk Cholesterol in LDL Calc [Mas s/Vol]Ordered By: Dell Kim on 04-02-2022 Cholesterol in LDL [Mass/Vol] [facility] Comment on above: Test not performed Cholesterol in VLDL Calc [Ma ss/Vol]Ordered By: Dell Kim on 04-02-2022 Cholesterol in VLDL [Mass/Vol] [facility] Comment on above: Test not performed Glucose Poct Glucometerson 0 04-02-2022 Commemt1 Glu2: Cleaned Meter Normal [facility] Comment on above: Result Comment: PERF ORMED BY: [place] [address] PATHOLOGIST [employer] INSTRUMENT [employer] JOSSELYN ROSEN M.D. Performed By: #### G LULS ####Point of Care testing, Glucose [Mass/Vol] 239 mg/dL Normal [facility] Comment on above: Result Comment: [facility] Glucose Reference Range is dependent on time and content of last meal. Glucose of more than 200 mg/dL in a nonstressed, ambulatory subject supports the diagnosis of Diabetes Mellitus. Performed By: #### G LULS ####Point of Care testing, LDL Cholesterol Measuredon 0 04-02-2022 LDL Cholesterol Measured 122 mg/dL High 0-100 [facility] Comment on above: Result Comment: LDL ATP III CLASSIFICATION LDL less than 100 mg/dL Optimal LDL 100-129 mg/dL Near or above optimal LDL 130-159 mg/dL Borderline high LDL 160-189 mg/dL High LDL greater than 189 mg/dL Very high Performed By: #### L IPID, [id number], TSH3 wRFLX, LDLD #### [address] Lipid Panelon 04-02-2022 Cholesterol [Mass/Vol] 244 mg/dL High 140-200 [facility] Comment on above: Result Comment: Chol less than 200 mg/dl low risk Chol 201-239 mg/dl borderline risk Chol 240 mg/dl and greater high risk Performed By: #### L IPID, [id number], TSH3 wRFLX, LDLD #### [facility] [address] [id number] [place] Cholesterol in HDL [Mass/Vol] 29 mg/dL Normal 29-71 [facility] Comment on above: Result Comment: HDL CHOL ATP-III CLASSIFICATION Cardiovascular Risk HDL > or equal to 60 mg/dL LOW HDL < 40 mg/dL HIGH Performed By: #### L IPID, [id number], TSH3 wRFLX, LDLD #### [facility] [address] Cholesterol.total/Linette sterol in HDL [Mass ratio] 8.4 {ratio} Normal <5.0 [facility] Comment on above: Performed By: #### L IPID, [id number], TSH3 wRFLX, LDLD #### [facility] [address] [id number] [facility] LDL Cholesterol,Calculated Not performed Normal 0-100 [facility] Comment on above: Performed By: #### L IPID, [id number], TSH3 wRFLX, LDLD #### [facility] [address] [id number] [place] Triglyceride w/Reflex 622 mg/dL High 35-149 [facility] Comment on above: Result Comment: TRIG ATP [...] and resulted. Performed By: #### L IPID, [id number], TSH3 wRFLX, LDLD #### [facility] [address] [id number] [place] VLDL CHOLESTEROL Not performed Normal [facility] Comment on above: Performed By: #### L IPID, [id number], TSH3 wRFLX, LDLD #### [facility] [address] No Panel InformationOrdered By: Dell Kim on 04-02-2022 Bedside Glucose Comment Glu2: cleaned meter [facility] 25-Hydroxy Vitamin D Total < 7.0 ng/mL 30-100 [facility] Comment on above: VITAMIN D [...] Cholesterol in LDL [Mass/Vol] 122 mg/dL 0-100 [facility] Comment on above: LDL ATP III CLASSIFI CATIONLDL less than 100 mg/dL OptimalLDL 100-129 mg/dL Near or above optimalLDL 130-159 mg/dL Borderline highLDL 160-189 mg/dL HighLDL greater than 189 mg/dL Very high Serum or plasma high density lipoprotein (HDL) cholesterol measurementOrdered By: Dell Kim on 04-02-2022 Cholesterol in HDL [Mass/Vol] 29 mg/dL 29-71 [facility] Comment on above: HDL CHOL ATP-III CLA SSIFICATION Cardiovascular RiskHDL > or equal to 60 mg/dL LOWHDL < 40 mg/dL HIGH Serum or plasma total choles terol/high density lipoprotein (HDL) cholesterol mass ratOrdered By: Dell Kim on 04-02-2022 Cholesterol.total/Linette sterol in HDL [Mass ratio] 8.4 {ratio} <5.0 [facility] TSH DL <= 0.005 mIU/L QnOrde red By: Dell Kim on 04-02-2022 TSH Qn 1.06 m[IU]/L 0.45-5.33 [facility] Thyroid Stim Hormone w/Rflxo n 04-02-2022 Thyroid Stim Hormone w/Rflx 1.06 u[iU]/mL Normal 0.45-5.33 [facility] Comment on above: Performed By: #### L IPID, [id number], TSH3 wRFLX, LDLD #### [facility] [address] [id number] [facility] Triglyceride [Mass/volume] i n Serum or PlasmaOrdered By: Dell Kim on 04-02-2022 Triglyceride [Mass/Vol] 622 mg/dL 35-149 F [facility] Comment on above: If the triglyceride result [...] 25 Hydroxy Total < 7.0 Low 30-100 [facility] Comment on above: Result Comment: SANDRA MIN D STATUS 25(OH)VITAMIN D RANGE (ng/mL) Deficient <20 Insufficient 20 to <30 Sufficient 30 to 100 Reference: Rosy MF,Byron NC, Hilario-Alex GALDAMEZ, et al. Evaluation,treatment, and prevention of vitamin D deficiency; an Endocrine Society clinical practice guideline. JCEM. 2010; 96(7):1911-30. PERFORMED BY: [place] [address] PATHOLOGIST [employer] IN[employer]UMENT [employer] JOSSELYN ROSEN M.D. Performed By: #### L IPID, [id number], TSH3 wRFLX, LDLD #### [facility] [address] [id number] [facility] ACETAMINOPHENon 04-01-2022 Acetaminophen [Mass/Vol] ug/mL Critically low 10.0-30.0 [facility] Comment on above: Performed By: #### C VDTBH #### [facility] [address] [address] [address] Travis Sanchez CBC AUTO DIFFon 04-01-2022 BASO # 0.1 103/ul Normal 0.0-0.1 [facility] Comment on above: Performed By: #### C BC #### [facility] [address] [address] [address] Travis Sanchez Basophils/100 WBC (Bld) 0.8 % Normal 0.2-2.0 [facility] Comment on above: Performed By: #### C BC #### [facility] [address] [address] [address] Travis Sanchez EO # 0.1 103/ul Normal 0.0-0.7 [facility] Comment on above: Performed By: #### C BC #### [facility] [address] [place] [address] Dr. Travis Sanchez Eosinophils/100 WBC (Bld) 1.3 % Normal 0.9-7.0 [facility] Comment on above: Performed By: #### C BC #### [facility] [address] [place] [address] Dr. Travis Sanchez Erythrocyte distribution width (RBC) [Ratio] 14.1 % Normal 11.0-15.0 [facility] Comment on above: Performed By: #### C BC #### [facility] [address] [place] [address] Dr. Travis Sanchez Hematocrit (Bld) [Volume fraction] 47.9 % Normal 42.0-54.0 [facility] Comment on above: Performed By: #### C BC #### [facility] [address] [place] [address] Dr. Travis Sanchez Hemoglobin (Bld) [Mass/Vol] 15.4 g/dL Normal 14.0-18.0 [facility] Comment on above: Performed By: #### C BC #### [facility] [address] [place] [address] Dr. Travis Sanchez IG # 0.03 10e3/ul Normal 0.00-0.03 [facility] Comment on above: Performed By: #### C BC #### [facility] [address] [place] [address] Dr. Travis Sanchez IG % 0.4 % Normal 0.0-0.5 [facility] Comment on above: Performed By: #### C BC #### [facility] [address] [place] [address] Dr. Tarvis Sanchez LYMPH # 1.7 103/ul Normal 1.2-3.8 [facility] Comment on above: Performed By: #### C BC #### [facility] [address] [place] [address] Dr. Travis Sanchez Lymphocytes/100 WBC (Bld) 22.1 % Normal 20.5-60.0 [facility] Comment on above: Performed By: #### C BC #### [facility] [address] [place] [address] Dr. Travis Sanchez MANUAL DIFF REQ NO Normal [facility] Comment on above: Performed By: #### C BC #### [facility] [address] [place] [address] Dr. Travis Sanchez MCH (RBC) [Entitic mass] 31.5 pg Normal 25.9-34.0 [facility] Comment on above: Performed By: #### C BC #### [facility] [address] [place] [address] Dr. Travis Sanchez MCHC (RBC) [Mass/Vol] 32.2 g/dL Normal 29.9-35.2 [facility] Comment on above: Performed By: #### C BC #### [facility] [address] [place] [address] Dr. Travis Sanchez MCV (RBC) [Entitic vol] 98.0 fL Critically high 80.0-94 .0 [facility] Comment on above: Performed By: #### C BC #### [facility] [address] [place] [address] Dr. Travis Sanchez MONO # 0.5 103/ul Normal 0.3-0.8 [facility] Comment on above: Performed By: #### C BC #### [facility] [address] [place] [address] Dr. Travis Sanchez Monocytes/100 WBC (Bld) 6.2 % Normal 1.7-12.0 [facility] Comment on above: Performed By: #### C BC #### [facility] [address] [place] [address] Dr. Travis Sanchez NEUT # 5.3 103/ul Normal 1.4-6.5 [facility] Comment on above: Performed By: #### C BC #### [facility] [address] [place] [address] Dr. Travis Sanchez Neutrophils/100 WBC (Bld) 69.2 % Normal 43.0-75.0 [facility] Comment on above: Performed By: #### C BC #### [facility] [address] [place] [address] Dr. Travis Sanchez Platelet mean volume (Bld) [Entitic vol] 11.0 fL Normal 9.5-13.5 [facility] Comment on above: Performed By: #### C BC #### [facility] [address] [place] [address] Dr. rTavis Sanchez PLT 314 103/ul Normal 150-450 [facility] Comment on above: Performed By: #### C BC #### [facility] [address] [place] [address] Dr. Travis Sanchez RBC 4.89 106/ul Normal 4.70-6.10 [facility] Comment on above: Performed By: #### C BC #### [facility] [address] [place] [address] Dr. Travis Sanchez WBC 7.6 103/ul Normal 4.0-11.0 [facility] Comment on above: Performed By: #### C BC #### [facility] [address] [place] [address] Dr. Travis Sanchez CULTURE URINEon 04-01-2022 CULTURE URINE Culture Observations : NO GROWTH. Normal [facility] Comment on above: Performed By: #### C VDTBH #### [facility] [address] [place] [address] Dr. Travis Sanchez Covid-19 PCR (CVDTB)on 03-09 SARS-CoV-2 (COVID-19) RNA ECTOR+probe Ql (Unsp spec) Not detected Normal NOT DETECTED [facility] Comment on above: Result Comment: When [...] for this test is supported by the Online Publisher of Health and Human Service's declaration that [...] used). Performed By: #### C VDTB #### [facility] [address] [place] [address] Dr. Travis Sanchez DRUG SCREEN RAPID (URINE)on 04-01-2022 AMP Negative Normal NEGATIVE [facility] Comment on above: Performed By: #### C BC #### [facility] [address] [place] [address] Dr. Travis Sanchez BAR Negative Normal NEGATIVE [facility] Comment on above: Performed By: #### C BC #### [facility] [address] [place] [address] Dr. Travis Sanchez BUP Negative Normal NEGATIVE [facility] Comment on above: Performed By: #### C BC #### [facility] [address] [place] [address] Dr. Travis Sanchez BZO Negative Normal NEGATIVE [facility] Comment on above: Performed By: #### C BC #### [facility] [address] [place] [address] Dr. Travis Sanchez JESUS Negative Normal NEGATIVE [facility] Comment on above: Performed By: #### C BC #### [facility] [address] [place] [address] Dr. Travis Sanchez CUT-OFFS SEE BELOW Normal [facility] Comment on above: Result Comment: AMP (Amphetamine): 500ng/mL, BAR (Barbituates): 200 ng/mL, BZO (Benzodiazepines): 150 ng/mL, BUP (Buprenorphine): 10 ng/mL, JESUS (Cocaine): 150 ng/mL, mAMP (Methamphetamine): 500 ng/mL, MTD (Methadone): 200 ng/mL, OPI (Opiates): 100 ng/mL, OXY (Oxycodone): 100 ng/mL, PCP (Phencyclidine): 25 ng/mL, PPX (Propoxyphene): 300 ng/mL, THC (Cannabinoids): 50 ng/mL, TCA (Trycyclic Antidepressants): 300 ng/mL Performed By: #### C BC #### [facility] [address] [place] [address] Dr. Travis Sanchez DRUG CUT HEADER DRUG CLASS TEST SYSTEM CUT-OFF CONCENTRATIONS ARE FOLLOWS: Normal [facility] Comment on above: Performed By: #### C BC #### [facility] [address] [place] [address] Dr. Travis Sanchez mAMP Negative Normal NEGATIVE [facility] Comment on above: Performed By: #### C BC #### [facility] [address] [place] [address] Dr. Travis Sanchez MTD Negative Normal NEGATIVE [facility] Comment on above: Performed By: #### C BC #### [facility] [address] [place] [address] Dr. Travis Sanchez OPI Negative Normal NEGATIVE [facility] Comment on above: Performed By: #### C BC #### [facility] [address] [place] [address] Dr. Travis Sanchez OXY Negative Normal NEGATIVE [facility] Comment on above: Performed By: #### C BC #### [facility] [address] [place] [address] Dr. Travis Sanchez PCP Negative Normal NEGATIVE [facility] Comment on above: Performed By: #### C BC #### [facility] [address] [place] [address] Dr. Travis Sanchez PPX Negative Normal NEGATIVE [facility] Comment on above: Performed By: #### C BC #### [facility] [address] [place] [address] Dr. Travis Sanchez TCA Negative Normal NEGATIVE [facility] Comment on above: Performed By: #### C BC #### [facility] [address] [place] [address] Dr. Travis Sanchez THC Negative Normal NEGATIVE [facility] Comment on above: Performed By: #### C BC #### [facility] [address] [place] [address] Dr. Travis Sanchez ER URINE PROFILEon 3 Bilirubin Ql (U) Negative Normal NEGATIVE [facility] Comment on above: Performed By: #### C BC #### [facility] [address] [place] [address] Dr. Travis Sanchez Clarity (U) CLEAR Normal CLEAR [facility] Comment on above: Performed By: #### C BC #### [facility] [address] [place] [address] Dr. Travis Sanchez Color (U) YELLOW Normal YELLOW [facility] Comment on above: Performed By: #### C BC #### [facility] [address] [place] [address] Dr. Travis Sanchez ERUAHD A micrscopic examination will be performed if indicated. Normal [facility] Comment on above: Performed By: #### C BC #### [facility] [address] [place] [address] Dr. Travis Sanchez Glucose Ql (U) >1000 Abnormal NEGATIVE [facility] Comment on above: Performed By: #### C BC #### [facility] [address] [place] [address] Dr. Travis Sanchez Hemoglobin Ql (U) Negative Normal NEGATIVE [facility] Comment on above: Performed By: #### C BC #### [facility] [address] [place] [address] Dr. Travis Sanchez Ketones Ql (U) TRACE Abnormal NEGATIVE [facility] Comment on above: Performed By: #### C BC #### [facility] [address] [place] [address] Dr. Travis Sanchez LEUKOCYTES Negative Normal NEGATIVE [facility] Comment on above: Performed By: #### C BC #### [facility] [address] [place] [address] Dr. Travis Sanchez Nitrite Ql (U) Negative Normal NEGATIVE [facility] Comment on above: Performed By: #### C BC #### [facility] [address] [place] [address] Dr. Travis Sanchez pH (U) 5.5 [pH] Normal 5-9 [facility] Comment on above: Performed By: #### C BC #### [facility] [address] [place] [address] Dr. Travis Sanchez Protein (U) [Mass/Vol] 100 mg/dL Abnormal NEGAT WILIAN/ TRACE [facility] Comment on above: Performed By: #### C BC #### [facility] [address] [place] [address] Dr. Travis Sanchez SPEC GRAVITY >=1.030 Abnormal 1.005-<=1.0 25 [facility] Comment on above: Performed By: #### C BC #### [facility] [address] [place] [address] Dr. Travis Sanchez UR MICRO IND INDICATED Normal [facility] Comment on above: Performed By: #### C BC #### [facility] [address] [place] [address] Dr. Travis Sanchez Urobilinogen Qn (U) 0.2 {Chintan'U}/dL Normal 0.2 - 1. 0 [facility] Comment on above: Performed By: #### C BC #### [facility] [address] [place] [address] Dr. Travis Sanchez ETHANOL (BLD ALC)on 04-01-19 23 ALC NOTE NOTE: 80 mg/dl is th e legal limit for a blood alcohol level Normal [facility] Comment on above: Performed By: #### E TH #### [facility] [address] [place] [address] Dr. Travis Sanchez Ethanol [Mass/Vol] mg/dL Normal [facility] Comment on above: Performed By: #### E TH #### [facility] [address] [place] [address] Dr. Travis Sanchez PROF 14(COMP METB)on 023 Albumin [Mass/Vol] 3.5 g/dL Normal 3.4-5.0 [facility] Comment on above: Performed By: #### C VDTBH #### [facility] [address] [place] [address] Dr. Travis Sanchez Albumin/Globulin [Mass ratio] 0.9 {ratio} Normal [facility] Comment on above: Performed By: #### C VDTBH #### [facility] [address] [place] [address] Dr. Travis Sanchez ALP [Catalytic activity/Vol] 98 U/L Normal 46-116 [facility] Comment on above: Performed By: #### C VDTBH #### [facility] [address] [place] [address] Dr. Travis Sanchez ALT [Catalytic activity/Vol] 36 U/L Normal 16-63 [facility] Comment on above: Performed By: #### C VDTBH #### [facility] [address] [place] [address] Dr. Travis Sanchez Anion gap [Moles/Vol] 16.8 mmol/L Normal [facility] Comment on above: Performed By: #### C VDTBH #### [facility] [address] [place] [address] Dr. Travis Sanchez AST [Catalytic activity/Vol] 18 U/L Normal 15-37 [facility] Comment on above: Performed By: #### C VDTBH #### [facility] [address] [place] [address] Dr. Travis Sanchez Bilirubin [Mass/Vol] 0.3 mg/dL Normal 0.2-1.0 [facility] Comment on above: Performed By: #### C VDTBH #### [facility] [address] [place] [address] Dr. Travis Sanchez Calcium [Mass/Vol] 9.1 mg/dL Normal 8.5-10.1 [facility] Comment on above: Performed By: #### C VDTBH #### [facility] [address] [address] [address] Travis Sanchez Chloride [Moles/Vol] 101 mmol/L Normal 98-107 [facility] Comment on above: Performed By: #### C VDTBH #### [facility] [address] [address] [address] Travis Sanchez CO2 [Moles/Vol] 22.1 mmol/L Normal 21.0-32.[address] [facility] Comment on above: Performed By: #### C VDTBH #### [facility] [address] [address] [address] Travis Sanchez Creatinine [Mass/Vol] 0.81 mg/dL Normal 0.70-1.30 [facility] Comment on above: Performed By: #### C VDTBH #### [facility] [address] [place] [address] Dr. Travis Sanchez EGFR-AF LIBERIAN >60 Normal >=[address] [facility] Comment on above: Performed By: #### C VDTBH #### [facility] [address] [place] [address] Dr. Travis Sanchez EGFR-NON AF LIBERIAN >60 Normal >=60 [facility] Comment on above: Performed By: #### C VDTBH #### [facility] [address] [place] [address] Dr. Travis Sanchez Globulin (S) [Mass/Vol] 3.7 g/dL Normal [facility] Comment on above: Performed By: #### C VDTBH #### [facility] [address] [place] [address] Dr. Travis Sanchez Glucose [Mass/Vol] 277 mg/dL Critically high 74-106 [facility] Comment on above: Performed By: #### C VDTBH #### [facility] [address] [place] [address] Dr. Travis Sanchez Potassium [Moles/Vol] 3.9 mmol/L Normal 3.5-5.1 [facility] Comment on above: Performed By: #### C VDTBH #### [facility] [address] [place] [address] Dr. Travis Sanchez Protein [Mass/Vol] 7.2 g/dL Normal 6.4-8.2 [facility] Comment on above: Performed By: #### C VDTBH #### [facility] [address] [place] [address] Dr. Travis Sanchez Sodium [Moles/Vol] 136 mmol/L Normal 136-145 [facility] Comment on above: Performed By: #### C VDTBH #### [facility] [address] [place] [address] Dr. Travis Sanchez Urea nitrogen [Mass/Vol] 11.0 mg/dL Normal 7.0-18.0 [facility] Comment on above: Performed By: #### C VDTBH #### [facility] [address] [place] [address] Dr. Travis Sanchez Urea nitrogen/Creatinine [Mass ratio] 13.6 mg/mg Normal [facility] Comment on above: Performed By: #### C VDTBH #### [facility] [address] [place] [address] Dr. Travis Sanchez SALICYLATEon 04-01-2022 SALICYLATE <2.8 Normal <=19.9 [facility] Comment on above: Performed By: #### C VDTBH #### [facility] [address] [place] [address] Dr. Travis Sanchez URINE MICROSCOPIC ONLYon BACTERIA SMALL Abnormal NONE SEEN [facility] Comment on above: Performed By: #### C BC #### [facility] [address] [place] [address] Dr. Travis Sanchez Bacteria identified Cx Nom (U) INDICATED Normal [facility] Comment on above: Performed By: #### C BC #### [facility] [address] [place] [address] Dr. Travis Sanchez CAST SEEN Abnormal NONE SEEN [facility] Comment on above: Performed By: #### C BC #### [facility] [address] [place] [address] Dr. Travis Sanchez Crystals LM Nom (Urine sed) NONE SEEN Normal NONE SEEN [facility] Comment on above: Performed By: #### C BC #### [facility] [address] [place] [address] Dr. Travis Sanchez Epithelial cells LM Ql (Urine sed) MODERATE Abnormal NONE SEEN /RARE [facility] Comment on above: Performed By: #### C BC #### [facility] [address] [place] [address] Dr. Travis Sanchez HYALINE CAST RARE Normal [facility] Comment on above: Performed By: #### C BC #### [facility] [address] [place] [address] Dr. Travis Sanchez MUCOUS MODERATE Abnormal NONE SEEN [facility] Comment on above: Performed By: #### C BC #### [facility] [address] [place] [address] Dr. Travis Sanchez RBC 0-2 Normal 0-2 [facility] Comment on above: Performed By: #### C BC #### [facility] [address] [place] [address] Dr. Travis Sanchez WBC 2-5 Abnormal NONE SEEN [facility] Comment on above: Performed By: #### C BC #### [facility] [address] [place] [address] Dr. Travis Sanchez TESTOSTERONE, TOTALon 2022 Testosterone [Mass/Vol] 240 ng/dL Critically low 264-916 [facility] Comment on above: Result Comment: Adul t male reference interval is based on a population of healthy nonobese males (BMI <30) between 19 and 39 years old. mike Prado.al. JCEM 2017,102;8057-7043. PMID: [id number]. Performed By: #### C BC #### [facility] [address] [place] [address] Dr. Travis Sanchez GLYCOHEMOGLOBIN A1Con 2022 ADA RECOMMENDATION SEE BELOW Normal [facility] Comment on above: Result Comment: ADA RECOMMENDED LIMIT 4.0 - 6.0 ADA THERAPEUTIC TARGET < 7.0 ACTION SUGGESTED > 7.0 Performed By: #### C BC #### [facility] [address] [place], [place] [address] Dr. Travis Sanchez Glucose [Mass/Vol] 212 mg/dL Normal [facility] Comment on above: Performed By: #### C BC #### [facility] [address] [place], [place] [address] Dr. Travis Sanchez HbA1c (Bld) [Mass fraction] 9.0 % Critically high 4.5-6.2 [facility] Comment on above: Performed By: #### C BC #### [facility] [address] [place], [place] [address] Dr. Travis Sanchez [place] [facility] [place] [facility] Coding Summary.on 02-19-2022 Coding Summary. Normal [facility] CHEMISTRYOrdered By: SYSTEM SYSTEM on 02-16-2022 Anion gap [Moles/Vol] 16 mmol/L Normal 6 - 16 mEq/L [facility] [place] Remisol Chloride [Moles/Vol] 97 mmol/L Low 101 - 1 11 mmol/L [facility] [place] Remisol CO2 [Moles/Vol] 24 mmol/L Normal 21 - 31 mmol/L [facility] [place] Remisol Potassium [Moles/Vol] 4.2 mmol/L Normal 3.5 - 5.3 mmol/L [facility] [place] Remisol Sodium [Moles/Vol] 133 mmol/L Low 135 - 145 mmol/L [facility] [place] Remisol Lyteson 02-16-2022 Anion gap [Moles/Vol] 16 mmol/L Normal 6-16 [facility] Comment on above: Performed By: #### 2 [id number] ####[facility] [address] [place] [address] Chloride [Moles/Vol] 97 mmol/L Low 101-111 [facility] Comment on above: Performed By: #### 2 [id number] ####[facility] [address] [place] [address] CO2 [Moles/Vol] 24 mmol/L Normal 21-31 [facility] Comment on above: Performed By: #### 2 [id number] ####[facility] [address] [place] [address] Potassium [Moles/Vol] 4.2 mmol/L Normal 3.5-5.3 [facility] Comment on above: Performed By: #### 2 [id number] ####[facility] [address] [place] [address] Sodium [Moles/Vol] 133 mmol/L Low 135-145 [facility] Comment on above: Performed By: #### 2 [id number] ####[facility] [address] [place] [address] Patient Educationon 02-17-20 Patient Education Normal [facility] Urology Office/Clinic Noteon 02-16-2022 Urology Office/Clinic Note Normal [facility] Comment on above: Result Comment: Elec tronically Signed By: Patricio CHAKRABORTY MD\.br\Date and Time Signed: 02/16/22 15:06 EST\.br\Electronically Co-Signed By: Germaine Mccain\.br\Date and Time Co-Signed: 02/16/22 15:05 EST Ambulatory Visit Summaryon 1 Ambulatory Visit Summary Normal [facility] Patient Educationon 12-16-19 Patient Education Normal [facility] Reminderson 12-15-2021 Reminders Normal [facility] Comment on above: Other Comment: in er ror Urology Office/Clinic Noteon 12-15-2021 Urology Office/Clinic Note Normal [facility] Comment on above: Result Comment: Elec tronically Signed By: Patricio CHAKRABORTY MD R\.br\Date and Time Signed: 12/15/21 15:50 EDT\.br\Electronically Co-Signed By: Alannah Ragland MA\.br\Date and Time Co-Signed: 12/15/21 15:45 EDT INSULINon 11-14-2021 Insulin 27.9 uIU/mL Critically high 2.6-24.[address] [facility] Comment on above: Performed By: #### S EDR #### [facility] [address] [address] [address] Travis Sanchez CBC AUTO DIFFon 11-13-2021 BASO # 0.0 103/ul Normal 0.0-0.1 [facility] Comment on above: Performed By: #### C BC #### [facility] [address] [address] [address] Travis Sanchez Basophils/100 WBC (Bld) 0.5 % Normal 0.2-2.0 [facility] Comment on above: Performed By: #### C BC #### [facility] [address] [place] [address] Dr. Travis Sanchez EO # 0.1 103/ul Normal 0.0-0.7 [facility] Comment on above: Performed By: #### C BC #### [facility] [address] [place] [address] Dr. Travis Sanchez Eosinophils/100 WBC (Bld) 1.8 % Normal 0.9-7.0 [facility] Comment on above: Performed By: #### C BC #### [facility] [address] [place] [address] Dr. Travis Sanchez Erythrocyte distribution width (RBC) [Ratio] 13.7 % Normal 11.0-15.0 [facility] Comment on above: Performed By: #### C BC #### [facility] [address] [place] [address] Dr. Travis Sanchez Hematocrit (Bld) [Volume fraction] 40.9 % Critically low 42.0-54.0 [facility] Comment on above: Performed By: #### C BC #### [facility] [address] [place] [address] Dr. Travis Sanchez Hemoglobin (Bld) [Mass/Vol] 13.7 g/dL Critically low 14.0-18.0 [facility] Comment on above: Performed By: #### C BC #### [facility] [address] [place] [address] Dr. Travis Sanchez IG # 0.04 10e3/ul Critically high 0.00-0.03 [facility] Comment on above: Performed By: #### C BC #### [facility] [address] [place] [address] Dr. Travis Sanchez IG % 0.7 % Critically high 0.0-0.5 [facility] Comment on above: Performed By: #### C BC #### [facility] [address] [place] [address] Dr. Travis Sanchez LYMPH # 1.6 103/ul Normal 1.2-3.8 [facility] Comment on above: Performed By: #### C BC #### [facility] [address] [place] [address] Dr. Travis Sanchez Lymphocytes/100 WBC (Bld) 25.8 % Normal 20.5-60.0 [facility] Comment on above: Performed By: #### C BC #### [facility] [address] [place] [address] Dr. Travis Sanchez MANUAL DIFF REQ NO Normal [facility] Comment on above: Performed By: #### C BC #### [facility] [address] [place] [address] Dr. Travis Sanchez MCH (RBC) [Entitic mass] 30.4 pg Normal 25.9-34.0 [facility] Comment on above: Performed By: #### C BC #### [facility] [address] [place] [address] Dr. Travis Sanchez MCHC (RBC) [Mass/Vol] 33.5 g/dL Normal 29.9-35.2 [facility] Comment on above: Performed By: #### C BC #### [facility] [address] [place] [address] Dr. Travis Sanchez MCV (RBC) [Entitic vol] 90.9 fL Normal 80.0-94.0 [facility] Comment on above: Performed By: #### C BC #### [facility] [address] [place] [address] Dr. Travis Sanchez MONO # 0.4 103/ul Normal 0.3-0.8 [facility] Comment on above: Performed By: #### C BC #### [facility] [address] [place] [address] Dr. Travis Sanchez Monocytes/100 WBC (Bld) 6.4 % Normal 1.7-12.0 [facility] Comment on above: Performed By: #### C BC #### [facility] [address] [address] [address] Travis Sanchez NEUT # 4.0 103/ul Normal 1.4-6.5 [facility] Comment on above: Performed By: #### C BC #### [facility] [address] [address] [address] Travis Sanchez Neutrophils/100 WBC (Bld) 64.8 % Normal 43.0-75.0 [facility] Comment on above: Performed By: #### C BC #### [facility] [address] [address] [address] Travis Sanchez Platelet mean volume (Bld) [Entitic vol] 10.4 fL Normal 9.5-13.5 [facility] Comment on above: Performed By: #### C BC #### [facility] [address] [address] [address] Travis Sanchez PLT 271 103/ul Normal 150-450 [facility] Comment on above: Performed By: #### C BC #### [facility] [address] [address] [address] Travis Sanchez RBC 4.50 106/ul Critically low 4.70-6.10 [facility] Comment on above: Performed By: #### C BC #### [facility] [address] [address] [address] Travis Sanchez WBC 6.1 103/ul Normal 4.0-11.0 [facility] Comment on above: Performed By: #### C BC #### [facility] [address] [address] [address] Travis Sanchez DIRECT LDLon 11-13-2021 Cholesterol in LDL [Mass/Vol] 124 mg/dL Normal [facility] Comment on above: Performed By: #### P SASC #### [facility] [address] [address] [address] Travis Sanchez DLDL NORMAL SEE BELOW Normal [facility] Comment on above: Result Comment: <100 mg/dl OPTIMAL 100 - 129 mg/dl NEAR OR ABOVE OPTIMAL 130 - 159 mg/dl BORDERLINE HIGH 160 - 189 mg/dl HIGH >190 mg/dl VERY HIGH Performed By: #### P SASC #### [facility] [address] [address] [address] Travis Sanchez GLYCOHEMOGLOBIN A1Con 2021 ADA RECOMMENDATION SEE BELOW Normal [facility] Comment on above: Result Comment: ADA RECOMMENDED LIMIT 4.0 - 6.0 ADA THERAPEUTIC TARGET < 7.0 ACTION SUGGESTED > 7.0 Performed By: #### S EDR #### [facility] [address] [address] [address] Travis Sanchez Glucose [Mass/Vol] 223 mg/dL Normal [facility] Comment on above: Performed By: #### S EDR #### [facility] [address] [place] [address] Dr. Travis Sanchez HbA1c (Bld) [Mass fraction] 9.4 % Critically high 4.5-6.2 [facility] Comment on above: Performed By: #### S EDR #### [facility] [address] [address] [address] Travis Sanchez LIPID PROFILEon 11-13-2021 CHOL-HDL RATIO NORM SEE BELOW Normal [facility] Comment on above: Result Comment: 3.3 - 4.4 LOW RISK 4.4 - 7.1 AVERAGE RISK 7.1 - 11.0 MODERATE RISK >11.0 HIGH RISK Performed By: #### C BC #### [facility] [address] [place] [address] Dr. Travis Sanchez Cholesterol [Mass/Vol] 265 mg/dL Critically high <=200 [facility] Comment on above: Performed By: #### C BC #### [facility] [address] [address] [address] Travis Sanchez Cholesterol in HDL [Mass/Vol] 37 mg/dL Critically low 40-60 [facility] Comment on above: Performed By: #### C BC #### [facility] [address] [address] [address] Travis Sanchez Cholesterol.total/Linette sterol in HDL [Mass ratio] 7.2 {ratio} Normal [facility] Comment on above: Performed By: #### C BC #### [facility] [address] [address] [address] Travis Sanchez HDL NORMAL > or = 60 mg/dl - LO W CARDIOVASCULAR RISK <40 mg/dl - HIGH CARDIOVASCULAR RISK Normal [facility] Comment on above: Performed By: #### C BC #### [facility] [address] [address] [address] Travis Sanchez Triglyceride [Mass/Vol] 604 mg/dL Critically high <=150 [facility] Comment on above: Performed By: #### C BC #### [facility] [address] [address] [address] Travis Sanchez VLDL CALC 120.8 mg/dL Normal [facility] Comment on above: Performed By: #### C BC #### [facility] [address] [place] [address] Dr. Travis Sanchez PROF 14(COMP METB)on 022 Albumin [Mass/Vol] 3.8 g/dL Normal 3.4-5.0 [facility] Comment on above: Performed By: #### P SASC #### [facility] [address] [place] [address] Dr. Travis Sanchez Albumin/Globulin [Mass ratio] 1.0 {ratio} Normal [facility] Comment on above: Performed By: #### P SASC #### [facility] [address] [place] [address] Dr. Travis Sanchez ALP [Catalytic activity/Vol] 103 U/L Normal 46-116 [facility] Comment on above: Performed By: #### P SASC #### [facility] [address] [address] [address] Travis Sanchez ALT [Catalytic activity/Vol] 41 U/L Normal 16-63 [facility] Comment on above: Performed By: #### P SASC #### [facility] [address] [place] [address] Dr. Travis Sanchez Anion gap [Moles/Vol] 14.4 mmol/L Normal [facility] Comment on above: Performed By: #### P SASC #### [facility] [address] [address] [address] Travis Sanchez AST [Catalytic activity/Vol] 17 U/L Normal 15-37 [facility] Comment on above: Performed By: #### P SASC #### [facility] [address] [address] [address] Travis Sanchez Bilirubin [Mass/Vol] 0.3 mg/dL Normal 0.2-1.0 [facility] Comment on above: Performed By: #### P SASC #### [facility] [address] [address] [address] Travis Sanchez Calcium [Mass/Vol] 9.1 mg/dL Normal 8.5-10.1 [facility] Comment on above: Performed By: #### P SASC #### [facility] [address] [address] [address] Travis Sanchez Chloride [Moles/Vol] 99 mmol/L Normal 98-107 [facility] Comment on above: Performed By: #### P SASC #### [facility] [address] [address] [address] Travis Sanchez CO2 [Moles/Vol] 25.7 mmol/L Normal 21.0-32.[address] [facility] Comment on above: Performed By: #### P SASC #### [facility] [address] [address] [address] Travis Sanchez Creatinine [Mass/Vol] 0.69 mg/dL Critically low 0.70-1.30 [facility] Comment on above: Performed By: #### P SASC #### [facility] [address] [address] [address] Travis Sanchez EGFR-AF LIBERIAN >60 Normal >=[address] [facility] Comment on above: Performed By: #### P SASC #### [facility] [address] [address] [address] Travis Sanchez EGFR-NON AF LIBERIAN >60 Normal >=60 [facility] Comment on above: Performed By: #### P SASC #### [facility] [address] [address] [address] Travis Sanchez Globulin (S) [Mass/Vol] 3.9 g/dL Normal [facility] Comment on above: Performed By: #### P SASC #### [facility] [address] [address] [address] Travis Sanchez Glucose [Mass/Vol] 269 mg/dL Critically high 74-106 [facility] Comment on above: Performed By: #### P SASC #### [facility] [address] [address] [address] Travis Sanchez Potassium [Moles/Vol] 4.1 mmol/L Normal 3.5-5.1 [facility] Comment on above: Performed By: #### P SASC #### [facility] [address] [address] [address] Travis Sanchez Protein [Mass/Vol] 7.7 g/dL Normal 6.4-8.2 [facility] Comment on above: Performed By: #### P SASC #### [facility] [address] [address] [address] Travis Sanchez Sodium [Moles/Vol] 135 mmol/L Critically low 136-145 [facility] Comment on above: Performed By: #### P SASC #### [facility] [address] [address] [address] Travis Sanchez Urea nitrogen [Mass/Vol] 11.0 mg/dL Normal 7.0-18.0 [facility] Comment on above: Performed By: #### P SASC #### [facility] [address] [address] [address] Travis Sanchez Urea nitrogen/Creatinine [Mass ratio] 15.9 mg/mg Normal [facility] Comment on above: Performed By: #### P SASC #### [facility] [address] [address] [address] Travis Sanchez URIC ACID SERUMon 11-13-2021 Urate [Mass/Vol] 5.5 mg/dL Normal 3.5-7.[address] [facility] Comment on above: Performed By: #### C #### [facility] [address] [address] [address] Travis Weems 09-23-2021 CNOV Office Visit (UROLMN ) MANDIENIO Reinoso ([id number]) 1990 M T Date Time Provider Department 09/23/21 4:00 PM TAHIR DEJESUS During your visit today, we recorded the following information about you: Tahir Dejesus MD 10/06/2021 8:48 AM Signed PATIENT: Enio Raymond [id number] REFERRING MD: Self 09/23/2021 Chief Complaint Post op History of Present Illness Enio Raymond is a very pleasant 30 year old male who presents for post op check up Had recent vasectomy from [facility] urologist office with severe scrotal pain [...] Dr. Tahir Dejesus by Goran Nuñez, medical officer psychiatry, on September 23, 2021 I agree with the Chief Complaint, ROS, and Past Histories independently gathered by the clinical clerical and office support workers including scribe and or medical student and or MIGUEL and or resident or fellow and the remaining scribed note accurately describes my personal service to the patient. Tahir Dejesus MD, MS [facility] Referring Provider: SELF [200] Allergies As [...] Status:Closed by HERB TEEKERRI on 10/06/21 Normal [facility] US VENOUS DOPPLER R Fernie US VENOUS [...] by: ELIUD IRIZARRY Date: 2021-09-01 13:01 Normal [facility] CONSULTon 08-13-2021 CONSULT HNO ID: [id number] Author: Angel Nelson MD Service: Urology Author Type: Resident Type: Consults Filed: 08/13/2021 4:55 PM Note Text: [facility] UROLOGY CONSULT NOTE Service Date: 08/13/2021 Service Time: 4:55 PM ASSESSMENT AND PLAN: 30 year old male with history of DM2, recent vasectomy presenting from [facility] urologist's office with c/f Golden's gangrene. [...] Angel Nelson MD Urology Resident PGY-2 Pager: [phone] For weekend or after hours issues [place] [phone] HPI: Enio Raymond is a 30 year old male [...] extremity edema LABS: Pending IMAGING: Pending Normal [facility] Glucose Glucometer (dC) [M ass/Vol]Ordered By: Segun Cho on 08-10-2021 Glucose [Mass/Vol] 397 mg/dL [facility] Comment on above: Random Glucose Refer ence Range is dependent on time and content of last meal. Glucose of more than 200 mg/dL in a nonstressed, ambulatory subject supports the diagnosis of Diabetes Mellitus. Glucose Poct Glucometerson 0 08-10-2021 Glucose [Mass/Vol] 397 mg/dL Normal [facility] Comment on above: Result Comment: [facility] Glucose Reference Range is dependent on time and content of last meal. Glucose of more than 200 mg/dL in a nonstressed, ambulatory subject supports the diagnosis of Diabetes Mellitus. PERFORMED BY: [facility] [place] [address] PATHOLOGIST PRECISION INSTRUMENT MAKER JOSSELYN ROSEN M.D. Performed By: #### G LULS #### Point of Care testing , US scrotumon 08-10-2021 US scrotum [facility] Main [address] [id number] Ultrasound Report Signed Patient: Enio Raymond MR#: [id number] : 1990 Acct:[id number] Age/Sex: 30 / M ADM Date: 08/10/21 Loc: ER Room: Type: [facility] Attending Dr: Ordering Provider: Segun Cho MD [...] Estrella Chung M.D.08/10/2021 7:04 PM Dictation Location: [address] [address] Tech: Mariana Caban Transcribed By: PAVEL 08/10/211903 Dictated By: Estrella Chung MD 08/10/211899 Signed By: 08/10/211903 [facility] US scrotumon 08-01-2021 scrotThe [facility] Main [address] [address] Ultrasound Report Signed Patient: Enio Raymond MR#: [id number] : 1990 Acct:[id number] Age/Sex: 30 / M ADM Date: 07/31/21 Loc: ER Room: Type: [facility] ER Attending Dr: Ordering Provider: Oliver Diehl [...] soft tissue changes. Impression dictated by: Gael Aguilar M.D.08/01/2021 9:01 AM Dictation Location: [address] [place] [address] Tech: [facility] Transcribed By: [facility] 08/01/[address] Dictated By: Gael Aguilar DO 08/01/21 0830 Signed By: 08/01/21 0901 Normal [facility] Urinalysison 08-01-2021 Appearance (U) Clear Normal Clear [facility] Comment on above: Order Comment: Name Collection Type:: Clean-Voided Midstream Performed By: #### U A ####[facility] [address] [place] [address] [facility] Bilirubin,Urine Negative Normal Negative [facility] Comment on above: Order Comment: Name Collection Type:: Clean-Voided Midstream Performed By: #### U A ####[address] [address] [facility] Color (U) Yellow Normal Yellow [facility] Comment on above: Order Comment: Name Collection Type:: Clean-Voided Midstream Performed By: #### U A ####[address] [address] [facility] Glucose Ql (U) >=1000 High Normal [facility] Comment on above: Order Comment: Name Collection Type:: Clean-Voided Midstream Performed By: #### U A ####[address] [address] [facility] Ketones Ql (U) Trace High Negative [facility] Comment on above: Order Comment: Name Collection Type:: Clean-Voided Midstream Performed By: #### U A ####[address] [address] [facility] Leukocyte esterase Test strip Ql (U) Negative Normal Negative [facility] Comment on above: Order Comment: Name Collection Type:: Clean-Voided Midstream Performed By: #### U A ####[address] [address] [facility] Nitrite,Urine Negative Normal Negative [facility] Comment on above: Order Comment: Name Collection Type:: Clean-Voided Midstream Performed By: #### U A ####[address] [address] [facility] Occult Blood,Urine Negative Normal Negative [facility] Comment on above: Order Comment: Name Collection Type:: Clean-Voided Midstream Result Comment: PERF ORMED BY: [facility] [address] [place] [address] PATHOLOGIST PRECISION INSTRUMENT MAKER JOSSELYN ROSEN M.D. Performed By: #### U A ####[address] [address] [facility] pH (U) 6.0 [pH] Normal 5.0-9.0 [facility] Comment on above: Order Comment: Name Collection Type:: Clean-Voided Midstream Performed By: #### U A ####[address] [address] [place] [address] [facility] Protein,Urine Negative Normal Negative [facility] Comment on above: Order Comment: Name Collection Type:: Clean-Voided Midstream Performed By: #### U A ####[address] [place] [address] [facility] Specificy [place],Urine 1.038 High 1.001-1.030 [facility] Comment on above: Order Comment: Name Collection Type:: Clean-Voided Midstream Performed By: #### U A ####[facility] [place] [address] [facility] Urobilinogen,Urine Normal Normal Normal [facility] Comment on above: Order Comment: Name Collection Type:: Clean-Voided Midstream Performed By: #### U A ####[address] [place] [address] [facility] Bilirubin Test strip Ql (U)O rdered By: Oliver Diehl on 07-31-2021 Bilirubin Ql (U) Negative Negative [facility] Color Auto (U)Ordered By: Myles Diehl on 07-31-2021 Color (U) Yellow Yellow [facility] Ketones Auto test strip (U) [Mass/Vol]Ordered By: Oliver Diehl on 07-31-2021 Ketones (U) [Mass/Vol] Trace Negative [facility] Nitrite Test strip Ql (U)Ord ered By: Oliver Diehl on 07-31-2021 Nitrite Ql (U) Negative Negative [facility] Protein Auto test strip (U) [Mass/Vol]Ordered By: Oliver Diehl on 07-31-2021 Protein (U) [Mass/Vol] Negative Negative [facility] Specific gravity Auto test s trip (U) [Rel density]Ordered By: Oliver Diehl on 07-31-2021 Specific gravity (U) [Rel density] 1.038 1.001-1.030 [facility] Urine clarity by refractomet ry automatedOrdered By: Oliver Diehl on 07-31-2021 Clarity Refractometry automated (U) Clear Clear [facility] Urine glucose measurement by automated test strip (mass/volume)Ordered By: Oliver Diehl on 07-31-2021 Glucose Auto test strip (U) [Mass/Vol] >=1000 mg/dL Normal [facility] Urine hemoglobin detection b y automated test stripOrdered By: Oliver Diehl on 07-31-2021 Hemoglobin Auto test strip Ql (U) Negative Negative [facility] Urine leukocyte esterase det ection by automated test stripOrdered By: Oliver Diehl on 07-31-2021 Leukocyte esterase Auto test strip Ql (U) Negative Negative [facility] Urobilinogen Auto test strip (U) [Mass/Vol]Ordered By: Oliver Dihel on 07-31-2021 Urobilinogen (U) [Mass/Vol] Normal mg/dL Normal [facility] pH Auto test strip (U)Ordere d By: Oliver Diehl on 07-31-2021 pH (U) 6.0 [pH] 5.0-9.0 [facility] Grey 07-25-2021 L - -------- Specimen: [id number] Received: 07/25/21 Status: NIRAV Jacinto Num: [id number] Spec Type: Surgical Subm Dr: Patricio Chakraborty MD Tissues: A VAS DEFERENS - sterilization (LT) B VAS DEFERENS - sterilization (RT) Procedures: HE Stain/2, Gross/Micro L2/2 -------- Patient Age/Sex Location Account Attending Physician -------- Enio Raymond 30/M [place] [id number] Patricio Chakraborty MD -------- SPEC NUM: [id number] RECD: 07/25/21 STATUS: NIRAV BENNETT NUM: [id number] RACHEL: 07/25/21- [facility] DR: Patricio Chakraborty MD ENTERED: 07/25/21 [facility] DR: Dino [facility] SPEC TYPE: Surgical DEPT: S ORDERED: HE [...] Specimen: Received: 07/25/21 Status: NIRAV Bennett Num: [id number] Spec Type: Surgical Subm Dr: Patricio Chakraborty MD Tissues: A VAS DEFERENS - sterilization (LT) B VAS DEFERENS - sterilization (RT) Procedures: JOSH Stain/2, Gross/Micro L2/2 -------- Patient: Enio Raymond [id number] (Continued) -------- Specimen: Received: 07/25/21 (Continued) Signed (signature on file) Josselyn Rosen MD 07/28/21 1753 -------- Specimen: Received: 07/25/21 Status: NIRAV Bennett Num: [id number] Spec Type: Surgical Subm Dr: Patricio Chakraborty MD Tissues: A VAS DEFERENS - sterilization (LT) B VAS DEFERENS - sterilization (RT) Procedures: HE Stain/2, Gross/Micro L2/2 -------- Patient: Enio Ryamond [id number] (Continued) -------- Specimen: [id number] Received: 07/25/21 (Continued) Microscopic Description A. One glass slide with H E stained material has been examined. The microscopic findings support the above pathologic diagnosis. B. One glass slide with H E stained material has been examined. The microscopic findings support the above pathologic diagnosis. [id number] -------- -------- Specimen: [id number] Received: 07/25/21 Status: NIRAV Bennett Num: [id number] Spec Type: Surgical Subm Dr: Patricio Chakraborty MD Tissues: A VAS DEFERENS - sterilization (LT) B VAS DEFERENS - sterilization (RT) Procedures: HE Stain/2, Gross/Micro L2/2 -------- Patient: Enio Raymond [id number] (Continued) -------- Signed (signature on file) Josselyn Rosen MD 07/28/21 7953 [facility] COVID Quick Testingon 2020 Result Negative [facility] Other Covid-19 PCRon 01-21-2021 SARS-CoV-2 (COVID-19) RNA ECTOR+probe Ql (Unsp spec) Not detected [facility] Other Covid-19 PCR [facility] Other Vital Signs Date Time Vital Sign Value Performing Clinician Facility 11-23-2022 11:43-0400 Blood Pressure Location Patricio CHAKRABORTY [facility] 11-23-2022 11:43-0400 Diastolic blood pressure 74 mm[Hg] Patricio CHAKRABORTY [facility] 11-23-2022 11:43-0400 Heart rate 80 /min Patricio CHAKRABORTY [facility] 11-23-2022 11:43-0400 Respiratory rate 16 /min Patricio CHAKRABORTY [facility] 11-23-2022 11:43-0400 Systolic blood pressure 120 mm[Hg] Patricio CHAKRABORTY [facility] 07-13-2022 14:00-0400 Body temperature 97.7 [degF] Ronobir YURIDIA [facility] 07-13-2022 14:00-0400 Diastolic blood pressure 73 mm[Hg] Ronobir YURIDIA [facility] 07-13-2022 14:00-0400 Heart rate 82 /min Ronobir YURIDIA [facility] 07-13-2022 14:00-0400 Respiratory rate 17 /min Ronobir YURIDIA [facility] 07-13-2022 14:00-0400 SaO2% (BldA) [Mass fraction] 95 % Ronobir YURIDIA [facility] 07-13-2022 14:00-0400 Systolic blood pressure 115 mm[Hg] Ronobir YURIDIA [facility] 07-13-2022 12:53-0400 Hourly Rounding Ronobir YURIDIA [facility] 07-13-2022 12:53-0400 Promise to Return Ronobir YURIDIA [facility] 07-13-2022 11:00-0400 gluc 292 mg/dL Ronobir YURIDIA [facility] 07-13-2022 11:00-0400 Hourly Rounding Ronobir YURIDIA [facility] 07-13-2022 11:00-0400 Promise to Return Ronobir YURIDIA [facility] 07-13-2022 10:00-0400 Hourly Rounding Ronobir YURIDIA [facility] 07-13-2022 10:00-0400 Promise to Return Ronobir YURIDIA [facility] 07-13-2022 09:29-0400 Diastolic blood pressure 70 mm[Hg] Ronobir YURIDIA [facility] 07-13-2022 09:29-0400 Systolic blood pressure 108 mm[Hg] Ronobir YURIDIA [facility] 07-13-2022 08:00-0400 Heart rate 77 /min Ronobir YURIDIA [facility] 07-13-2022 08:00-0400 Mean blood pressure 83 mm[Hg] Ronobir YURIDIA [facility] 07-13-2022 08:00-0400 Respiratory rate 18 /min Ronobir YURIDIA [facility] 07-13-2022 08:00-0400 SaO2% (BldA) [Mass fraction] 96 % Ronobir YURIDIA [facility] 07-13-2022 07:00-0400 gluc 238 mg/dL Ronobir YURIDIA [facility] 07-12-2022 20:24-0400 Heart rate 85 /min Ronobir YURIDIA [facility] 07-12-2022 20:23-0400 Mean blood pressure 89 mm[Hg] Ronobir YURIDIA [facility] 07-12-2022 20:23-0400 Body temperature 97.88 [degF] Ronobir YURIDIA [facility] 07-12-2022 17:00-0400 Mean blood pressure 88 mm[Hg] Ronobir YURIDIA [facility] 07-12-2022 17:00-0400 Body temperature 97.52 [degF] Ronobir YURIDIA [facility] 07-12-2022 16:20-0400 Mean blood pressure 93 mm[Hg] Ronobir YURIDIA [facility] 07-12-2022 12:38-0400 Respiratory rate 16 /min Ronobir YURIDIA [facility] 07-12-2022 00:44-0400 Heart rate 105 /min Ronobir YURIDIA [facility] 07-12-2022 00:00-0400 Mean blood pressure 97 mm[Hg] Ronobir YURIDIA [facility] 07-11-2022 23:00-0400 Mean blood pressure 82 mm[Hg] Ronobir YURIDIA [facility] 07-11-2022 20:13-0400 Heart rate 119 /min Ronobir YURIDIA [facility] 07-11-2022 20:10-0400 gluc 317 mg/dL Ronobir YURIDIA [facility] 07-11-2022 20:10-0400 gluc Ronobir YURIDIA [facility] 06-11-2022 08:45-0400 Blood Pressure Location MARIANA BRIGGS [facility] 06-11-2022 08:45-0400 Diastolic blood pressure 82 mm[Hg] MARIANA BRIGGS [facility] 06-11-2022 08:45-0400 Heart rate 88 /min MARIANA BRIGGS [facility] 06-11-2022 08:45-0400 Systolic blood pressure 132 mm[Hg] MARIANA BRIGGS [facility] 04-04-2022 07:30-0500 Body temperature 97.4 [degF] PHYSICIAN NO [facility] 04-04-2022 07:30-0500 Diastolic blood pressure 111 mm[Hg] PHYSICIAN NO [facility] 04-04-2022 07:30-0500 Heart rate 100 /min PHYSICIAN NO [facility] 04-04-2022 07:30-0500 SaO2% (BldA) [Mass fraction] 97 % PHYSICIAN NO [facility] 04-04-2022 07:30-0500 Systolic blood pressure 175 mm[Hg] PHYSICIAN NO [facility] 04-03-2022 20:25-0500 Respiratory rate 16 /min PHYSICIAN NO [facility] 04-02-2022 16:30-0500 Body height 193.04 cm PHYSICIAN NO [facility] 04-01-2022 19:34-0500 Body weight 184.61 kg PHYSICIAN NO [facility] 12-15-2021 14:10-0400 Blood Pressure Location Patricio CHAKRABORTY [facility] 12-15-2021 14:10-0400 Diastolic blood pressure 87 mm[Hg] Patricio CHAKRABORTY [facility] 12-15-2021 14:10-0400 Heart rate 75 /min Patricio CHAKRABORTY [facility] 12-15-2021 14:10-0400 Respiratory rate 16 /min Patricio CHAKRABORTY [facility] 12-15-2021 14:10-0400 Systolic blood pressure 137 mm[Hg] Patricio CHAKRABORTY [facility] 10-06-2021 11:21-0400 Blood Pressure Location Patricio CHAKRABORTY [facility] 10-06-2021 11:21-0400 Diastolic blood pressure 81 mm[Hg] Patricio CHAKRABORTY [facility] 10-06-2021 11:21-0400 Heart rate 104 /min Patricio CHAKRABORTY [facility] 10-06-2021 11:21-0400 Respiratory rate 16 /min Patricio CHAKRABORTY [facility] 10-06-2021 11:21-0400 Systolic blood pressure 125 mm[Hg] Patricio CHAKRABORTY [facility] 08-10-2021 17:39-0400 Body height 190.5 cm Jackelin Hale Work Phone: [facility] 08-10-2021 17:39-0400 Body mass index (BMI) [Ratio] 51 kg/m2 Jackelin Aichholz Work Phone: [facility] 08-10-2021 17:39-0400 Body temperature 98.5 [degF] Jackelin Aichholz Work Phone: [facility] 08-10-2021 17:39-0400 Body weight 185 kg Jackelin Aichholz Work Phone: [facility] 08-10-2021 17:39-0400 Diastolic blood pressure 81 mm[Hg] Jackelin Aichholz Work Phone: [facility] 08-10-2021 17:39-0400 Heart rate 122 /min Jackelin Aichholz Work Phone: [facility] 08-10-2021 17:39-0400 Respiratory rate 23 /min Jackelin Aichholz Work Phone: [facility] 08-10-2021 17:39-0400 SaO2% (BldA) [Mass fraction] 96 % Jackelin Aichholz Work Phone: [facility] 08-10-2021 17:39-0400 Systolic blood pressure 134 mm[Hg] Jackelin Aichholz Work Phone: [facility] 07-31-2021 22:13-0400 Body temperature 98.5 [degF] Jackelin Aichholz Work Phone: [facility] 07-31-2021 22:13-0400 Diastolic blood pressure 109 mm[Hg] Jackelin Aichholz Work Phone: [facility] 07-31-2021 22:13-0400 Heart rate 115 /min Jackelin Aichholz Work Phone: [facility] 07-31-2021 22:13-0400 Respiratory rate 22 /min Jackelin Aichholz Work Phone: [facility] 07-31-2021 22:13-0400 SaO2% (BldA) [Mass fraction] 95 % Jackelin Aichholz Work Phone: [facility] 07-31-2021 22:13-0400 Systolic blood pressure 177 mm[Hg] Jackelin Darlynholz Work Phone: [facility] 07-31-2021 22:12-0400 Body height 190.5 cm Jackelin Warrenhholz Work Phone: [facility] 07-31-2021 22:12-0400 Body mass index (BMI) [Ratio] 51.7 kg/m2 Jackelinkemar Kelleyhholz Work Phone: [facility] 07-31-2021 22:12-0400 Body weight 188 kg Jackelin Santizoholz Work Phone: [facility] 03-24-2021 12:30-0500 Body height 190.5 cm Shruthi Analilia Other [facility] Other 03-24-2021 12:30-0500 Body temperature 96 [degF] Shruthi Analilia Other [facility] Other 03-24-2021 12:30-0500 SaO2% (BldA) [Mass fraction] 98 % Shruthi Analilia Other [facility] Other 01-21-2021 11:15-0500 Body height 190.5 cm Bailey Ginty Other [facility] Other 01-21-2021 11:15-0500 Body mass index (BMI) [Ratio] 49.99 kg/m2 Bailey Ginty Other [facility] Other 01-21-2021 11:15-0500 Body temperature 98.1 [degF] Bailey Ginty Other [facility] Other 01-21-2021 11:15-0500 Body weight 181.44 kg Bailey Guilherme Other [facility] Other 01-21-2021 11:15-0500 SaO2% (BldA) [Mass fraction] 94 % Bailey Vanegas Other [facility] Other Encounters Encounter Date Encounter Type Care Provider Facility Start: 03-29-2023 ambulatory Patricio CHAKRABORTY Facili ty:[facility] [place] Start: 03-29-2023 End: 03-29-2023 Patient encounter procedure Patricio CHAKRABORTY [facility] [place] Start: 11-23-2022 End: 11-24-2022 ambulatory Patricio CHAKRABORTY Facility:[facility] [place] Start: 11-23-2022 End: 11-23-2022 Patient encounter procedure Patricio CHAKRABORTY [facility] Start: 08-17-2022 End: 08-18-2022 ambulatory Patricio CHAKRABORTY Facility:[facility] [place] Start: 08-04-2022 ambulatory SHRUTHI DÍAZ Facility: Start: 07-14-2022 ambulatory SHRUTHI DÍAZ Facility: Start: 07-11-2022 End: 07-13-2022 ambulatory Wilian SHI [place] Start: 07-11-2022 End: 07-13-2022 Observation Wilian SHI [facility] Start: 07-07-2022 End: 07-07-2022 ambulatory SHRUTHI DÍAZ [...] procedure MARIANA E CHESTER [facility] [place] Start: 05-23-2022 End: 05-24-2022 ambulatory ONLAN FRANSISCO Facility:[facility] Start: 05-04-2022 ambulatory SHRUTHI DÍAZ Facility: [facility] Start: 04-01-2022 End: 04-04-2022 Evaluation and management of inpatient Dell Kim Facility:[facility] Start: 04-01-2022 End: 04-04-2022 Evaluation and management of inpatient PHYSICIAN MARC [facility] [place] [address] Work Phone: Start: 04-01-2022 End: 04-01-2022 ambulatory LUANN SEYMOUR Facility:[facility] Start: 03-17-2022 End: 03-18-[address] GERTRUDIS PINA . Facility:[facility] Start: 02-16-2022 End: 02-17-2022 ambulatory Patricio CHAKRABORTY [place] Start: 02-16-2022 End: 02-16-2022 Lab Drop off Patricio CHAKRABORTY [facility] Start: 02-16-2022 End: 02-17-2022 ambulatory Patricio CHAKRABORTY Facility: [place] Start: 02-16-2022 End: 02-16-2022 Patient encounter procedure Patricio CHAKRABORTY [facility] [place] Start: 01-06-2022 End: 02-04-2022 ambulatory SHAIKH Patience MOSER Facility:[facility] Start: 12-15-2021 End: 10-11-2022 ambulatory Patricio CHAKRABORTY Facility:[facility] [place] Start: 12-15-2021 End: 12-15-2021 Patient encounter procedure Patricio Vidales CHAKRABORTY [facility] Start: 12-07-2021 End: 01-05-2022 ambulatory SHRUTHI DÍAZ [...] with patient Viktor Gilbert MD Work Phone: [facility] Start: 10-09-2021 ambulatory EVENT CREW TECHNICIAN JACKELIN GEOFFREY Facil ity:[facility]1 Start: 10-06-2021 End: 10-06-2021 Patient encounter procedure Patricio Vidales CHAKRABORTY [facility] Start: 10-06-2021 End: 11-05-2021 ambulatory Patience SHANTI Facility:[facility] Start: 09-23-2021 End: 09-23-2021 Patient encounter procedure Tahir Dejesus MD Work Phone: Urology Comment on above: Vasectomy status (Pr imary Dx) Start: 09-23-2021 End: 09-24-2021 ambulatory Tahir Dejesus MD Work Phone: Urology Start: 09-10-2021 Telephone encounter Alana [facility] & Comment on above: Returning Patient's Call Start: 09-05-2021 End: 10-03-2021 ambulatory EVENT CREW TECHNICIAN JACKELIN WARRENPatienceADALI Facility:[facility] Start: 09-02-2021 End: 09-05-2021 ambulatory SHAIKH Patience MOSER Facility:[facility] Start: 09-01-2021 End: 09-02-2021 ambulatory EVENT CREW TECHNICIAN JACKELIN HALE Facility:[facility] Start: 08-13-2021 End: 08-13-2021 Patient encounter procedure Patricio Sobeida PALMER [facility] [place] Start: 08-10-2021 End: 08-10-2021 Emergency department patient visit PHYSICIAN NO FAMILY Facility:[facility] Start: 08-10-2021 End: 08-10-2021 Emergency department patient visit Jackelin Geoffrey Work Phone: [facility]-Emergency [facility] Start: 08-01-2021 End: 08-01-2021 Emergency department patient visit PHYSICIAN NO FAMILY Facility:[facility] Start: 07-31-2021 End: 07-31-2021 Emergency department patient visit Jackelin Warrenpatienceadali Work Phone: [facility]-Emergency Room Start: 07-25-2021 End: 07-25-2021 ambulatory Patricio Chakraborty Facility:[facility] Start: 07-25-2021 End: 07-25-2021 Departed Referred Jackelin Geoffrey Work Phone: [facility] Main [place] Start: 03-24-2021 End: 03-24-2021 ambulatory Shruthi Billingsley Other [facility] Other Start: 03-24-2021 Office outpatient vi sit 15 minutes Shruthi Billingsley [facility] Start: 01-23-2021 End: 01-23-2021 ambulatory Bailey Ginty Other [facility] Other Start: 01-23-2021 Telephone encounter Bailey Ginty [facility] Start: 01-21-2021 End: 01-21-2021 ambulatory Bailey Ginty Other [facility] Other Start: 01-21-2021 Office outpatient vi sit 15 minutes Bailey Vanegas [facility] Procedures Date Procedure Procedure Detail Performing Clinician Start: 11-13-2021 PSA screening NOE HALE Comment on above: Performed By: #### P [facility] #### [facility] [address] [place] [address] Dr. Travis Sanchez Start: 08-13-2021 H/O: vasectomy [...] Date Care Activity Detail Author Start: 04-04-2022 [facility] Start: 04-01-2022 Referral to Dockworker [facility] Start: 04-01-2022 Hospital admission [facility] Start: 11-06-2021 Influenza vaccination INFLUENZA (#1) [facility] Start: 07-31-2021 Echography of scrotu m and contents US scrotum [facility] Start: 12-14-2007 HEPATITIS B (1 of 3 - Risk 3-dose series) HEPATITIS B (1 of 3 - Risk 3-dose series) [facility] Start: 12-14-2007 Urine microalbumin profile DTAP,TDAP,TD (1 - Tdap) [facility] Start: 2006 ANNUAL PCP TEAM BANK CASHIER JULIÁN DISEASE VISIT ANNUAL PCP TEAM CHRONIC DISEASE VISIT [facility] Start: 2006 Hepatitis B surface antibody level LDL CHOLESTEROL [facility] Start: 2006 HEPATITIS C SCREENING HEPATITIS C SC REENING [facility] Start: 2006 HIV SCREENING HIV SCREENING [facility] Start: 1998 3 comp foot exam completed DIABETIC FOOT EXAM [facility] Start: 1998 Hepatitis B screening URINE AL BUMIN:CREATININE RATIO [facility] Start: 1998 Hepatitis C antibody , confirmatory test DILATED RETINAL EXAM [facility] Start: 1994 PNEUMOCOCCAL (1 - PCV) PNEUMOCOCCAL (1 - PCV) [facility] Start: 1993 Hemoglobin A1c/Hemoglobin.total in Blood HBA1C [facility] Start: 06-13-1989 COVID-19 VACCINE (#1) COVID-19 VACCI NE (#1) [facility] Start: 1988 HEPATITIS B (1 of 3 - 3-dose series) HEPATITIS B (1 of 3 - 3-dose series) [facility] Patient Education [facility] Work Phone: Patient referral [facility] Work Phone: URINALYSIS, REFLEX MICROSCOPIC URINALYSIS, REFLEX MICROSCOPIC Lab Routine Screening for genitourinary condition Ordered: 09/23/2021 [facility] Work Phone: Comment on above: Ordered: 09/23/2021 [facility] Immunizations Immunization Date Immunization Notes Care Provider Salima eason 03-16-2006 tetanus toxoid, redu sindy diphtheria toxoid, and acellular pertussis vaccine, adsorbed MARIANA CHESTER [facility] 07-19-2001 measles, mumps and rubella virus vaccine MARIANA CHESTER [facility] 10-28-1994 DTaP, unspecified formulation MARIANA CHESTER [facility] 06-24-1990 Hib, unspecified formulation MARIANA CHESTER [facility] 03-18-1990 Hib, unspecified formulation MARIANA BRIGGS [facility] 03-18-1990 measles, mumps and rubella virus vaccine MARIANA BRIGGS [facility] Payers Date Payer Category Payer Medicaid [employer] [employer] [employer] [id number] 2019-Present [phone] [place] [address] Medicaid [id number] 2019 Medicaid [place] [employer] [place] [employer] [id number] 2019-Present [phone] [address] [place] [address] Medicaid [id number] 1988 Unknown [id number] 2.16.840.1.399725.3.579.2.5 93 1988 Unknown [id number] 2.16.840.1.675662.3.579.2.5 93 1988 Unknown [id number] 2.16.840.1.076705.3.579.2.5 93 1988 Unknown [id number] 2.16.840.1.527973.3.579.2.5 93 1988 Unknown [id number] 2.16.840.1.198523.3.579.2.5 93 1988 Unknown [id number] 2.16.840.1.868015.3.579.2.5 93 1988 Unknown [id number] 2.16.840.1.290285.3.579.2.5 93 1988 Unknown [id number] 2.16.840.1.657509.3.579.2.5 93 1988 Unknown [id number] 2.16.840.1.420710.3.579.2.5 93 1988 Unknown [id number] 2.16.840.1.450981.3.579.2.5 93 1988 Unknown [id number] 2.16.840.1.210756.3.579.2.5 93 1988 Unknown [id number] 2.16.840.1.948515.3.579.2.5 93 1988 Unknown [id number] 2.16.840.1.987414.3.579.2.5 93 1988 Unknown [id number] 2.16.840.1.523643.3.579.2.5 93 1988 Unknown [id number] 2.16.840.1.387804.3.579.2.5 93 1988 Unknown [id number] 2.16.840.1.849301.3.579.2.5 93 1988 Unknown [id number] 2.16.840.1.922041.3.579.2.5 93 1988 Unknown [id number] 2.16.840.1.024125.3.579.2.5 93 1988 Unknown [id number] 2.16.840.1.215004.3.579.2.5 93 1988 Unknown [id number] 2.16.840.1.235288.3.579.2.5 93 1988 Unknown [id number] 2.16.840.1.105958.3.579.2.5 93 1988 Unknown [id number] 2.16.840.1.010284.3.579.2.7 27 1988 Unknown [id number] 2.16.840.1.399165.3.579.2.7 27 1988 Unknown [id number] 2.16.840.1.041454.3.579.2.7 27 1988 Unknown [id number] 2.16.840.1.659124.3.579.2.7 27 1988 Unknown [id number] 2.16.840.1.519212.3.579.2.7 27 1988 Unknown [id number] 2.16.840.1.401181.3.579.2.7 27 1988 Unknown [id number] 2.16.840.1.278533.3.579.2.7 27 1988 Unknown [id number] 2.16.840.1.803250.3.579.2.7 27 1959 Medicaid [id number] 1959 Self-pay [id number] Unknown [place] BC/[place] [id number] Unknown [id number] 2.16.840.1.667313.19 Unknown [id number] 2.16.840.1.025302.3.579.2.5 31 Unknown [id number] 2.16.840.1.087163.3.579.2.5 31 Unknown [id number] 2.16.840.1.385076.3.579.2.5 31 Unknown [id number] 2.16.840.1.333512.3.579.2.5 31 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 [employer] [facility] [id number] Social History Date Type Detail Facility Start: 10-06-2020 [facility] (finding) [facility] Start: 10-07-2003 End: 10-06-2020 History of tobacco use [facility] [employer] Other Start: 1990 Sex Assigned At Male F [facility] Start: 06-09-2021 End: 02-16-2022 Tobacco smoking status Light tobacco smoker (finding) [facility] Tobacco smoking status Smokeless tobacco user within last 30 days [facility] Start: 07-31-2021 End: 04-02-2022 Tobacco smoking status NHIS Smoker (finding) [facility] Start: 08-13-2021 Tobacco [facility] Smokes tobacco daily [facility] History of tobacco use Cigarette Smoker C [facility] Start: 08-13-2021 Cigarettes smoked current (pack per day) - Reported 0.5 [facility] Start: 08-18-2021 End: 10-30-2021 Alcohol intake Lifetime non-drinker (finding) [facility] Start: 08-13-2021 History SDOH Alcohol Frequency 1 [facility] Start: 1990 Sex Assigned At Not on file C [facility] Start: 08-18-2021 End: 09-23-2021 Exposure to SARS-CoV-2 (event) Not sure [facility] Start: 10-07-2021 End: 10-17-2021 Exposure to SARS-CoV-2 (event) Unable to assess [facility] Start: 11-23-2022 Tobacco smoking status Never s moked tobacco (finding) [facility] Goals Date Patient Goal Desired Activity /State Functional Status Date Assessment Result Facility 11-23-2022 Functional Status N/A [facility] 07-12-2022 Functional Status No [facility] 07-11-2022 Functional Status [facility] 06-11-2022 Functional Status N/A [facility] 04-04-2022 Functional status Patient at Baseline [facility] Work Phone: 02-16-2022 Functional Status N/A [facility] 12-15-2021 Functional Status N/A [facility] 10-06-2021 Functional Status N/A [facility] Mental Status Date Assessment Result Facility 04-04-2022 Cognitive function Cognitive Sta tus Patient at Baseline [facility] Work Phone: Clinical Notes 01-21-2021 to [...] therapy. Follow these instructions at home: Take jaxc-bxi-yrjuyny and prescription medicines only as told by [...] provider. Document Revised: 10/24/2020 Document Reviewed: 10/24/2020 [employer] Patient Education 2022 [employer]. 11/23/2022 12:46:35 Overactive Bladder, Adult Overactive Bladder, [...] your health care provider. General instructions Take wzln-cgy-ukskizb and prescription medicines only as told by [...] provider. Document Revised: 11/11/2020 Document Reviewed: 11/11/2020 [employer] Patient Education 2022 [employer]. Follow Up Care 08/17/2022 11:49:19 With:PALMER TORREZ, Patricio Vidales, URL Address: [facility] [address], [place] [address]- [phone] When: Unknown Comments:sched brain MRI [facility] 07-13-2022 Evaluation + Plan note Extrac thuy [...] Within 3 to 5 days [address] [place] [address] [phone] Business (1) Additional Instructions: Call for followup appointment Hypotension, Juef-nx-Gyxl Urinary Tract Infection, Adult Extracted from: Title:Admission [...] deep vein thrombosis (DVT) prophylaxis (Z79.899: Other usp (current) drug therapy) SCD, enoxaparin Orders: acetaminophen, [...] Compression Device C-Reactive Protein Cardiac Monitoring COVID-19 ([facility] Diabetic/Calorie Control Diet Ferritin Hypoglycemia Protocol Responsive [...] Saturation PT & PTT Rapid COVID Antigen ([facility] Saline Lock Insert Troponin 0 Hr. Troponin 3 Hr. Troponin 6 Hr. Troponin 9 Hr. UA With Cult Reflex Urine Culture Future Appointments Appointment Date:08/17/2022 10:30:00 AM Scheduled Provider:Patricio CHAKRABORTY MD Location:[facility] Appointment Type:URO Office Visit Future Scheduled Tests Laboratory* Semen Analysis Post Vasectomy 10/06/21 * Semen Analysis Post Vasectomy 10/06/21 [facility]05-08-2023 NoteFisher R Adams Cowley Shock Trauma CenterComment on above:Result Comment: Electronically Signed By: RENALDO TORREZ, Parvin\.br\Date and Time Signed: 07/13/22 10:19 [id number] Hospital Discharge instructions Patient Education 07/13/2022 10:17:27 Hypotension, Wqqy-nn-Ahev Hypotension As your heart beats, it forces [...] up quickly after you eat. Medicines Take uizb-vwz-rbudsbk and prescription medicines only as told by [...] provider. Document Revised: 10/13/2021 Document Reviewed: 10/13/2021 [employer] Patient Education 2022 [employer]. 07/13/2022 10:17:23 Urinary Tract Infection, Adult Urinary [...] Treatment for this condition includes: Antibiotic medicine. Wtrp-lsj-qixovzq medicines to treat discomfort. Drinking enough water [...] Follow these instructions at home: Medicines Take rdty-xqf-leqqnbm and prescription medicines only as told by [...] provider. Document Revised: 10/04/2020 Document Reviewed: 10/04/2020 [employer] Patient Education 2022 [employer]. Follow Up Care 07/11/2022 20:06:03 With:SHRUTHI DÍAZ Address: [address] [place] [address]- [phone] Business (1) When:07/17/2022 15:15:00 Comments:Call for followup appointment [facility]05-07-2023 [facility]Comment on above:Result Comment: Electronically Signed By: Wilian HSI DO\Date and Time Signed: 07/12/22 03:16 [id number] NoteCONSULTATION CONSULTATION DATE: 06/25/2022 TO: Shruthi Díaz [...] I have given him 10 pills of [place] to trial and to have available for [...] our patients to inform us about any nagq-ilq-auuvvfa medications or herbal remedies/nutritional supplements/alternative remedies. 2. [...] treatment options with their primary care provider.[id number] Hospital Discharge instructions Patient Education 06/11/2022 08:51:48 [...] fried and sweet foods. General instructions Take fsuz-qdn-pvttlgf and prescription medicines only as told by [...] 12/19/2009 Document Revised: 06/15/2019 Document Reviewed: 03/10/2018 [employer] Patient Education 2020 [employer]. Follow Up Care 06/04/2022 15:50:17 With:MARIANA BRIGGS PA-C, URL Address: [address] [facility] 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 Patient was continued on his home [...] signed by Dell Kim MD> 04/04/22 1132 [facility] Work Phone: 1(680) 494-666901-27-2023 Progress note Author Dell Kim [facility] April 03, 2022 1:47pm Note Date/Time April 03, 2022 1 :47pm [facility] [address] [place] [address] Psychiatry Progress Note Signed Patient: Enio Raymond MR#: [id number] : 1990 Acct:[id number] Age/Sex: 31 / M Adm Date: 3 Loc: Room: [address] [place] [address] Type : ADM IN Attending Dr: Dell [...] <Electronically signed by Dell Kim MD> 04/03/227 [facility] Work Phone: 1(149) 240-444501-26-2023 History and physical note Author Dell Kim [facility] April 02, 2022 1:07pm Note Date/Time April 02, 2022 1 :03pm [facility] [address] [place] [address] Psychiatry H&P Signed Patient: Enio Raymond MR#: [id number] : 1990 Acct:[id number] Age/Sex: 31 / M Adm Date: 3 Loc: Room: [address] [place] [address] Type: ADM IN Attending Dr: Dell Kim [...] issues, reported sobriety Living: With family 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 General instructions Take czow-lad-dbkkret and prescription medicines only as told by [...] 12/19/2009 Document Revised: 06/15/2019 Document Reviewed: 03/10/2018 [facility] Patient Education 2020 [employer]. Follow Up Care 12/15/2021 15:51:03 With:PALMER TORREZ, Patricio Vidales, URL Address: [facility] [address] [place] [address]- When: Unknown [facility] 10-10-2022 Hospital Discharge instructions Patient Education 12/15/2021 [...] (electrical nerve stimulation). For women, using a medical detailist to prevent urine leaks. This is a [...] right after experiencing incontinence. General instructions Take vsme-zqh-wwratdh and prescription medicines only as told by [...] 04/01/2005 Document Revised: 03/04/2018 Document Reviewed: 06/03/2017 [employer] Patient Education 2020 [employer]. Follow Up Care 10/06/2021 12:21:17 With:PALMER TORREZ, Patricio Vidales, URL Address: [facility] [address] [place] [address]- [phone] When:02/23/2022 [facility] 08-25-2022 NoteHNO ID: [id number] Author: Viktor Gilbert MD Service: ? Author [...] Spent: 21-30 minutes Viktor Gilbert MD, MS, [facility] Ashley Joyce Department of Cardiovascular Medicine [address], [place] [address] Appointments: (Cardiology); (Vascular Medicine) This note was dictated using a voice recognition software. Please excuse any inadvertent typographical/grammatical/syntax errors that may have escaped the final proofread. Please don't hesitate to contact my office for any clarification.[facility]08-25-2022 History of Present illness Narrative* Viktor Gilbert [...] Spent: 21-30 minutes Viktor Gilbert MD, MS, [facility] Ashley Joyce Department of Cardiovascular Medicine [address], [place] [address] Appointments: (Cardiology); (Vascular Medicine) This note was dictated using a voice recognition software. Please excuse any inadvertent typographical/grammatical/syntax errors that may have escaped the final proofread. Please don't hesitate to contact my office for any clarification. documented in [facility] encounter[facility] Hospital Discharge instructions Patient Education 10/06/2021 [...] help you get to a healthyweight. Take cdsj-jhm-kksqiar and prescription medicines only as told by [...] 04/14/2006 Document Revised: 10/10/2018 Document Reviewed: 10/10/2018 [employer] Patient Education 2020 [employer]. Follow Up Care 10/01/2021 14:34:21 With:PALMER TORREZ, Patricio Vidales, URL Address: [facility] [address], [place] [address] [phone] When:Within 2 Month(s) [facility] 07-19-2022 NoteHNO ID: [id number] Author: Tahir Dejesus MD Service: ? Author Type: Physician Type: Progress Notes Filed: 10/06/2021 8:48 AM Note Text: PATIENT: Enio Raymond [id number] REFERRING MD: Harsh 09/23/2021 Chief Complaint Post op History of Present Illness Enio Raymond is a very pleasant 30 year old male who presents for post op check up Had recent vasectomy from [facility] urologist office with severe scrotal pain [...] Past Histories independently gathered by the clinical clerical and office support workers including scribe and or medical student and or MIGUEL and or resident or fellow and the remaining scribed note accurately describes my personal service to the patient. Tahir Dejesus MD, MS [facility]07-19-2022 History of Present illness Narrative* Tahir Dejesus MD - 09/23/2021 4:00 PM EDT PATIENT: Enio Raymond [id number] REFERRING MD: Self 09/23/2021 Chief Complaint Post op History of Present Illness Enio Raymond is a very pleasant 30 year old male who presents for post op check up Had recent vasectomy from [facility] urologist office with severe scrotal pain [...] Past Histories independently gathered by the clinical clerical and office support workers including scribe and or medical student and or MIGUEL and or resident or fellow and the remaining scribed note accurately describes my personal service to the patient. Tahir Dejesus MD, MS [facility] documented in this encounterTrihealth [facility]07-19-2022 NotePatient Outreach (UROLMN) ENIO RAYMOND ([id number]) 1990 M T Date Time Provider Department 09/23/21 TAHIR DEJESUS During your visit today, we recorded the following information about you: Allergies As of Date: 09/23/2021 (No Known Allergies) Date Reviewed: 09/23/2021 Reviewed by: Rell Gallegos MA - Fully Assessed Visit Diagnosis:Screening for genitourinary condition [Z13.89] Order(s):URINALYSIS, REFLEX MICROSCOPIC [[id number]] Order #: [id number]. #:[id number] Prescriptions as of 09/26/2021 - warfarin (COUMADIN) [...] 08/27/2021 Encounter Status:Closed by KATALINA BILLINGS on 09/26/21[facility] 09-10-2021 Miscellaneous Notes* Telephone Encounter - Alana [...] answered. Alana Castle RN [facility] History of Past illness Narrative* Problem [...] this AM in setting of DKA/[place] Gangrene, [place]/Central line placed. S/p 750cc albumin with good [...] of this encounter (statuses as of 09/10/2021) [facility] History of Past illness Narrative* Problem [...] of this encounter (statuses as of 09/26/2021) [facility] History of Past illness Narrative* Problem [...] of this encounter (statuses as of 10/06/2021) [facility] History of Past illness Narrative* Problem [...] of this encounter (statuses as of 10/30/2021) [facility] Hospital Discharge instructions Patient Education 08/13/2021 [...] an athletic support cup for comfort. Take [id number]-[id number] and prescription medicines only as told by [...] 03/27/2011 Document Revised: 02/04/2018 Document Reviewed: 05/10/2017 [employer] Patient Education 2020 [employer]. Follow Up Care 08/12/2021 16:38:44 With:PALMER TORREZ, Patricio Vidales, URL Address: [facility] [address], [place] [address]- When: Unknown [facility] [place] 01-17-2022 Evaluation note* Encounter Date [...] Patient care instructions given in writting by [facility] Care At Home document. [employer] Other 11-16-2021 Evaluation note* Encounter Date Diagnosis [...] Patient care instructions given in writting by [facility] Care At Home document [employer] Other Evaluation + Plan note No data available for this section [facility] [place] Evaluation + Plan note Future Appointments Appointment Date:12/15/2021 01:15:00 PM Scheduled Provider:Patricio CHAKRABORTY MD Location:[facility] Appointment Type:URO Office Visit Diagnostic Tests Pending * Electrolyte Panel 10/06/21 Future Scheduled Tests Laboratory* Semen Analysis Post Vasectomy 10/06/21 * Semen Analysis Post Vasectomy 10/06/21 [facility] evaluation + Plan note Future Appointments Appointment Date:02/16/2022 01:15:00 PM Scheduled Provider:Patricio CHAKRABORTY MD Location:[facility] Appointment Type:URO Office Visit Diagnostic Tests Pending * Electrolyte Panel 12/15/21 Future Scheduled Tests Laboratory* Semen Analysis Post Vasectomy 10/06/21 * Semen Analysis Post Vasectomy 10/06/21 [facility] evaluation + Plan note Future Appointments Appointment Date:08/17/2022 10:30:00 AM Scheduled Provider:Patricio CHAKRABORTY MD Location:[facility] Appointment Type:URO Office Visit Future Scheduled Tests Laboratory* Semen Analysis Post Vasectomy 10/06/21 * Semen Analysis Post Vasectomy 10/06/21 [facility] evaluation + Plan note Future Appointments Appointment Date:03/29/2023 11:15:00 AM Scheduled Provider:Patricio CHAKRABORTY MD Location:[facility] Appointment Type:URO Office Visit Diagnostic Tests Pending * Testosterone Level Total 11/23/22 * Prolactin Level 11/23/22 [facility] evalbtyymr noteNo assessment information available [facility] Work Phone: Evaluation noteNo InformationNortMercy [facility] Other Evaluation note* Diagnosis Screening for genitourinary condition Screening for other and unspecified genitourinary condition documented in this encounter [facility] note* Diagnosis Vasectomy status- Primary documented in this encounter [facility] note* Diagnosis Multiple subsegmental pulmonary emboli without acute cor pulmonale (HCC)- Primary Anticoagulation management encounter Encounter for therapeutic drug monitoring documented in this encounter [facility] note* Diagnosis Onset Date Resolution Status Depression acute [facility] Work Phone: Hiscsge general Narrative - Reported* Type Description Date Medical History fx rt great toe Medical History diabetes mallitus Medical History mood disorder Surgical History arthroscopic knee surgery [facility] [employer] Other Hospital Discharge instructions No data available for this section [facility] Additional Instructions Regular Diet No Activity RestrictionsAultman Hospital [facility] Work Phone: Progress note No data available for this section [facility] Chief Complaint and Reason for Visit Chief [...] Documents on File Type Date Recorded Patient Founder Expl anation Advance Directive(s) 08/13/2021 5:01 PM [...] SHRUTHI DÍAZ CNP Address: Address: [address] [facility], [place] [address] Team Status: Inactive Member Role Status [...] section and content) DATE CREATED AUTHOR 08/14/2021 [facility] DATE CREATED AUTHOR AUTHOR'S ORGANIZ ATION 04/04/2022 [facility] DATE CREATED AUTHOR AUTHOR'S ORGANIZ ATION 07/17/2022 [facility] DATE CREATED AUTHOR AUTHOR'S ORGANIZ ATION 09/22/2022 [facility] DATE CREATED AUTHOR AUTHOR'S ORGANIZ ATION 12/11/2022 [facility] REASON FOR VISIT (unrecogniz ed section and [...] or prosecute any alcohol or drug abuse patient.[facility] HospitalIn the event this information is protected by the Federal Confidentiality of Alcohol and Drug Abuse Patient Records regulations: The Federal rules restrict any use of the information to criminally investigate or prosecute any alcohol or drug abuse patient.[facility] Hospital[facility] the event this information is protected by the Federal Confidentiality of Alcohol and Drug Abuse Patient Records regulations: The Federal rules restrict any use of the information to criminally investigate or prosecute any alcohol or drug abuse patient.[facility] Hospital[facility] the event this information is protected by the Federal Confidentiality of Alcohol and Drug Abuse Patient Records regulations: The Federal rules restrict any use of the information to criminally investigate or prosecute any alcohol or drug abuse patient.[facility] FOR RECORDS PERTAINING TO PATIENTS WHO [...] BE BASED ON THE PRIMARY CLINICAL RECORDS. [facility] [employer] [facility]. provides no warranty or guarantee of the accuracy or completeness of information in this document.
[2024-03-31 13:28] LABS: Estimated Average Glucose 131 mg/dL; Glycohemoglobin A1C 6.2 % (4.5-6.2)
[2024-04-01 08:09] LABS: Testosterone 319 ng/dL (264-916)
== END 2024-03-31 11:22 | disposition home or self-care (01) ==
LOC: LAB 11:24
PROVIDERS: Family Provider Family Medicine; PCP Nurse Practitioner Family; Visit Provider Nurse Practitioner Family
DX: E29.1 Testicular hypofunction (principal); E11.9 Type 2 diabetes mellitus without complications
CPT/HCPCS: 36415; 83036; 84403

== ENCOUNTER 2024-04-27 21:37 | Emergency (ER) | payer OTHER, SELFPAY ==
[2024-04-27 21:40] VITALS: BP 159/99; PULSE 97; TEMP 36.7; O2SAT 98; BMI 38.7
--- OUTSIDE RECORDS SUMMARY | 2024-04-27 21:43 | XMS_ITS | CCD ---
Author Organization [facility] Care Team Providers Care Car Deliverer Name Role Phone Jackelin Hale Primary Care Provider MD Patricio Chakraborty Attending Provider [phone] NONE, XXXX Primary Care Physician Unavailab le NO FAMILY, PHYSICIAN Primary Care Provider Unava ilable MD Oliver Diehl Jr Emergency Provider MD Segun Cho Emergency Provider Bailey Vanegas Unavailable Shruthi Billingsley Unavailable Unavailable Primary Care Provider UnavailSHRUTHI Beatty Primary Care Physician [phone] NO FAMILY, PHYSICIAN Primary Care Provider Unava [...] Unavailable NO FAMILY, PHYSICIAN Primary Care Unavailable GEOFFREY, NOE JACKELIN Primary Care Unavailable DR ELIUD IRIZARRY [...] Admitting Unavailable JILLIAN .CHARLES Consulting Unavailclaudia chacko [facility], SHRUTHI Primary Care Unavailable ELIUD HERNANDEZ Consulting Unavailable FAWWAD, WRIGHT H Admitting Unavailable AICHHOLZ, PAINTER SPRING JACKELIN Primary Care Unavailable FAWWAD, WRIGHT H Attending Unavailable AICHOLZ, PAINTER SPRING JACKELIN Primary Care Unavailable SHRUTHI DÍAZ Attending Unavailable ARJUN, SHRUTHI Admitting Unavailable FAWWAD, WRIGHT H Attending Unavailable FAWWAD, WRIGHT H Admitting Unavailable AICHHOLZ, PAINTER SPRING JACKELIN Primary Care Unavailable FAWWAD, WRIGHT H [...] Medication Allergies] Propensity to adverse reactions (disorder) [facility] Repository Medications Current Medications Medication Drug Class(es) [...] 6 hours 15 July 31, 2021 11:45pm [id number] 200 actuat albuterol 0.09 mg/actuat metered dose [...] Bedtime, # 90 tab(s), Refills(s) 3, Pharmacy: [facility]/pharmacy #[id number], 190, ignacio, 06/11/22 8:47:00 EDT, Height/Length Dosing, 175, kg, 06/11/22 8:47:00 EDT, Weight Dosing Start Date: 07/08/22 Status: Ordered Start: 10-06-2021 take 2 tablets by mo [facility] at bedtime DDAVP 0.2 mg oral tablet 0.4 mg = 2 tab(s), Oral, Bedtime, # 180 tab(s), Refills(s) 2, Pharmacy: [facility]/pharmacy #[id number], 190, cm, 10/06/21 11:26:00 EDT, Height/Length Dosing, 175, kg, 10/06/21 11:26:00 EDT, Weight Dosing Start Date: 10/06/21 Status: Ordered Start: 10-06-2021 take 1 tablet by jason th three times daily DDAVP 0.2 mg oral tablet 0.2 mg = 1 tab(s), Oral, TID, # 90 tab(s), Refills(s) 2, Pharmacy: [facility]/pharmacy #[id number], ignacio Lindsey, 10/06/21 11:26:00 EDT, Height/Length Dosing, 175, kg, 10/06/21 11:26:00 EDT, Weight Dosing Start Date: 10/06/21 Status: Ordered Start: 06-09-2021 take 1 tablet by jason once daily DDAVP 0.2 mg oral tablet 0.2 mg = 1 tab(s), Oral, Daily, # 30 tab(s), Refills(s) 11, Pharmacy: [facility]/pharmacy #[id number], 190, ignacio, 06/09/21 13:52:00 EDT, Height/Length [...] Start: 10-05-2020 take 1 capsule by mo [facility] once daily Fluoxetine (Prozac) 20 mg [...] day(s), # 60 cap(s), Refills(s) 6, Pharmacy: [facility]/pharmacy #[id number], 190, cm, 11/23/22 11:45:00 EDT, Height/Length [...] Daily, # 30 tab(s), Refills(s) 11, Pharmacy: [facility]/pharmacy #[id number], 190, cm, 12/15/21 14:21:00 EDT, Height/Length Dosing, 175, kg, 12/15/21 14:21:00 EDT, Weight Dosing Start Date: 12/15/21 Status: Ordered sulfamethoxazole 800 mg / trimethoprim 160 mg oral tablet (1 source) Dihydrofolate Reductase Inhibitor Antibacterial, Sulfonamide Antimicrobial Start: 07-14-19 End: 07-19-19 Bactrim D.S. 800 mg-160 mg Tab 160 mg, Oral, BID for 5 day(s), 10 tab(s), Refill(s) 0, [facility]/pharmacy #[id number], 193, cm, 07/11/22 20:16:00 EDT, Height/Length [...] current use of drug therapy; Translations: [Other buttermaker helper (current) drug therapy] Onset: 3 Episodic Other aftercare (1 source) Other buttermaker helper (current) drug therapy; Translations: [OTH CARE HOME CURRENT DRUG THERAPY] Onset: 3 Episodic Other aftercare (1 source) watermaster (current) use of insulin; Translations: [NURSERY HAND CURRENT USE OF INSULIN] Onset: 3 Episodic Other aftercare (1 source) watermaster (current) use of oral hypoglycemic drugs; Translations: [CARE HOME USE ORAL HYPOGLYCEMIC DX] Onset: 3 [...] Onset: 01-06-2022 Episodic Other aftercare (1 source) watermaster (current) use of anticoagulants; Translations: [NURSERY HAND CURRNT USE ANTICOAGULANTS] Onset: 02-06-2022 Episodic Other [...] Facility Pre-Certification Formon Pre-Certification Form [id number]#1 .00CD:127 [facility] Lab Reportson 12-04-2022 Lab Reports [id number]#1 .00CD:127 Normal [facility] Ambulatory Visit Summaryon 0 11-23-2022 Ambulatory Visit Summary Normal [facility] Patient Educationon 11-24-19 Patient Education Normal [facility] Urology Office/Clinic Noteon 11-23-2022 Urology Office/Clinic Note Normal [facility] Comment on above: Result Comment: Elec tronically Signed By: Patricio CHAKRABORTY MD\.br\Date and Time Signed: 11/23/22 13:02 EDT\.br\Electronically Co-Signed By: Tara Lee\.br\Date and Time Co-Signed: 11/23/22 13:00 EDT Ambulatory Visit Summaryon 0 08-17-2022 Ambulatory Visit Summary Normal [facility] Patient Educationon 08-18-19 Patient Education [facility] Physician Referralon 023 Physician Referral [id number]#1 .00CD:127 Normal [facility] Urology Office/Clinic Noteon 08-17-2022 Urology Office/Clinic Note [facility] Comment on above: Result Comment: Elec tronically Signed By: Patricio CHAKRABORTY MD\.br\Date and Time Signed: 08/17/22 11:40 EDT\.br\Electronically Co-Signed By: Germaine Mccain\.br\Date and Time Co-Signed: 08/17/22 11:37 EDT C Urineon 07-14-2022 Bacteria identified Cx Nom (U) Normal [facility] Comment on above: Performed By: #### 2 [id number], [id number] ####[facility] [address] [place] [address] BMPon 07-13-2022 Anion gap [Moles/Vol] 12 mmol/L Normal 6-16 [facility] Comment on above: Performed By: #### 1 [id number], [id number] ####[facility] [address] [place] [facility] [place] [address] Calcium [Mass/Vol] 8.9 mg/dL Normal 8.9-11.1 [facility] Comment on above: Performed By: #### 1 [id number], [id number] ####[facility] [address]Norn[address] [place] [facility] [place] [address] Chloride [Moles/Vol] 102 mmol/L Normal 101-111 [facility] Comment on above: Performed By: #### 1 [id number], [id number] ####[facility] [address] [place] [address] CO2 [Moles/Vol] 24 mmol/L Normal 21-31 [facility] Comment on above: Performed By: #### 1 [id number], [id number] ####[facility] [address] [place] [facility] [place] [address] Creatinine [Mass/Vol] 0.6 mg/dL Normal 0.5-1.3 [facility] Comment on above: Performed By: #### 1 [id number], [id number] ####[facility] [address] [place] [facility] [place] [address] Glucose [Mass/Vol] 259 mg/dL High 55-199 [facility] Comment on above: Result Comment: If t his glucose result represents a fasting glucose, interpretation should refer to the following reference range: 55-99 mg/dL Performed By: #### 1 [id number], [id number] ####[facility] [address] [place] [address] Potassium [Moles/Vol] 3.9 mmol/L Normal 3.5-5.3 [facility] Comment on above: Performed By: #### 1 [id number], [id number] ####[facility] [address] [place] [address] Sodium [Moles/Vol] 134 mmol/L Low 135-145 [facility] Comment on above: Performed By: #### 1 [id number], [id number] ####[facility] [address] [facility] [place] [address] Urea nitrogen [Mass/Vol] 14 mg/dL Normal 5-21 [facility] Comment on above: Performed By: #### 1 [id number], [id number] ####[facility] [address] [facility] [place] [address] Urea nitrogen/Creatinine [Mass ratio] 23 No Units High 10-20 [facility] Comment on above: Performed By: #### 1 [id number], [id number] ####[facility] [address] [facility] [place] [address] CHEMISTRYOrdered By: Lab ROP User on 07-13-2022 Glucose [Mass/Vol] 292 mg/dL High 55 - 99 mg/dL [facility] POC Subsection Comment on above: Result Comment: Shukri sandoval RN/ POC Device SN [id number] Invalid Interpretation Code [facility] POC Subsection POC User ID [id number] Invalid Interpretation Code [facility] POC Subsection POC Username PALAK HINSON Invalid Interpretation Code [facility] POC Subsection Glucose [Mass/Vol] 238 mg/dL High 55 - 99 mg/dL [facility] POC Subsection Comment on above: Result Comment: Shukri sandoval RN/ POC Device SN [id number] Invalid Interpretation Code [facility] POC Subsection POC User ID [id number] Invalid Interpretation Code [facility] POC Subsection POC Username PALAK HINSON Invalid Interpretation Code [facility] POC Subsection CHEMISTRYOrdered By: SYSTEM SYSTEM on 07-13-2022 Anion gap [Moles/Vol] 12 mmol/L Normal 6 - 16 mEq/L [facility] Remisol Calcium [Mass/Vol] 8.9 mg/dL Normal 8.9 - 11. 1 mg/dL [facility] Remisol Chloride [Moles/Vol] 102 mmol/L Normal 101 - 1 11 mmol/L FT Remisol CO2 [Moles/Vol] 24 mmol/L Normal 21 - 31 mmol/L [facility] Remisol Creatinine [Mass/Vol] 0.6 mg/dL Normal 0.5 - 1.3 mg/dL [facility] Remisol GFR/1.73 sq M.predicted among non-blacks MDRD (S/P/Bld) [Vol rate/Area] 131 mL/min/1.73 m2 Normal >=59mL/min/ 1.73 m2 [facility] Chem S Glucose [Mass/Vol] 259 mg/dL High 55 - 199 mg/dL [facility] Remisol Potassium [Moles/Vol] 3.9 mmol/L Normal 3.5 - 5.3 mmol/L [facility] Remisol Sodium [Moles/Vol] 134 mmol/L Low 135 - 145 mmol/L [facility] Remisol Urea nitrogen [Mass/Vol] 14 mg/dL Normal 5 - 21 mg/dL [facility] Remisol Urea nitrogen/Creatinine [Mass ratio] 23 mg/mg High 10 - 20 [facility] Remisol Capillary Glucose POCon 05-0 Glucose [Mass/Vol] 292 mg/dL High 55-99 [facility] Comment on above: Result Comment: Shukri FROST Performed By: #### 2 [id number] ####[facility] [address] [place] [address] Glucose [Mass/Vol] 238 mg/dL High 55-99 [facility] Comment on above: Result Comment: Shukri FROST Performed By: #### 2 [id number] ####[facility] [address] [place] [address] Discharge Instructionson Discharge Instructions [id number]#1. 00CD:127 Normal [facility] Discharge Note-Nursingon Discharge Note-Nursing Normal [facility] Ferritinon 07-13-2022 Ferritin [Mass/Vol] 126 ng/mL Normal 24-336 [facility] Comment on above: Result Comment: NORM ALS MEN <30 YRS 16-132 ng/mL MEN >30 YRS 8-338 ng/mL WOMEN (PREMEN) 6-104 ng/mL WOMEN (POSTMEN) 12-210 ng/mL Performed By: #### 1 [id number], [id number], [id number], [id number], [id number] ####[facility] [address] [place] [address] Inpatient Clinical Summaryon 07-13-2022 Inpatient Clinical Summary Normal [facility] Inpatient Patient Summaryon 07-13-2022 Inpatient Patient Summary Normal [facility] Inpatient Patient Summary Normal [facility] Interdisciplinary Note - Kane e Manageron 07-13-2022 Interdisciplinary Note - Servomechanism Assembler Normal [facility] Comment on above: Result Comment: Elec tronically Signed By: Quang CEDILLO, Evie\.br\Date and Time Signed: 07/13/22 11:37 EDT Patient Education - Texton 0 07-13-2022 Patient Education - Text Normal [facility] eGFRon 07-13-2022 GFR/1.73 sq M.predicted among non-blacks MDRD (S/P/Bld) [Vol rate/Area] 131 mL/min/1.73 m2 Normal >=59 [facility] Comment on above: Order Comment: Order added by Discern Expert. Result Comment: In[employer] julián kidney disease could be indicated at eGFR's of less than 60 mL/min/1.73m2. Kidney failure is indicated at less than 15 mL/min/1.73m2. Performed By: #### 1 [id number], [id number] ####[facility] [address] [place] [address] BNPon 07-12-2022 Natriuretic peptide B (Bld) [Mass/Vol] pg/mL Normal 5-80 [facility] Comment on above: Performed By: #### 1 [id number] ####[facility] [address] [place] [address] CHEMISTRYOrdered By: Lab ROP User on 07-12-2022 Glucose [Mass/Vol] 284 mg/dL High 55 - 99 mg/dL [facility] POC Subsection Comment on above: Result Comment: Pamela fleming Meter POC Device SN [id number] Invalid Interpretation Code [facility] POC Subsection POC User ID [id number] Invalid Interpretation Code [facility] POC Subsection POC Username ARGELIA SHARIF Invalid Interpretation Code [facility] POC Subsection CHEMISTRYOrdered By: Cass Ryan on 07-12-2022 Natriuretic peptide B (Bld) [Mass/Vol] pg/mL Normal 5 - 80 pg/mL [facility] HemeManSS CHEMISTRYOrdered By: SYSTEM SYSTEM on 07-12-2022 CRP [Mass/Vol] 6.3 mg/dL High <=1.9mg/dL FT Remis ol Ferritin [Mass/Vol] 126 ng/mL Normal 24 - 336 ng/mL FT Remisol LDH [Catalytic activity/Vol] 160 [iU]/d Normal 93 - 218 Int._Unit/L FT Remisol Procalcitonin 0.10 ng/mL Normal 0.00 - 0.50 ng/mL [facility] Remisol Troponin I.cardiac [Mass/Vol] pg/mL Low 15.90 - 38.40 pg/mL [facility] Remisol COVID-19 ([facility])on 07-12-2022 Performing Instrument FT Waqas 2 Normal [facility] Comment on above: Performed By: #### 2 [id number] ####[facility] [address] [place] [address] SARS-CoV-2 (COVID-19) RNA ECTOR+probe Ql (Resp) Not detected Normal Not Detected [facility] Comment on above: Result Comment: This test result should be correlated with clinical presentations and medical history by a healthcare provider to determine its clinical significance.This assay was performed by a reverse transcriptase real-time polymerase chain reaction (rt PCR) method on the [employer] system. This test has been authorized only [...] or revoked sooner. Performed By: #### 2 [id number] ####[place] [address] SARS-CoV-2 (COVID-19) RNA ECTOR+probe Ql (Unsp spec) Pass Normal Pass [facility] Comment on above: Performed By: #### 2 [id number] ####[place] [address] Specimen source Nom (Unsp spec) Nasal Normal [facility] Comment on above: Performed By: #### 2 [id number] ####[place] [address] ADMITTED TO INTENSIVE CARE UNIT FOR CONDITION OF INTEREST:FIND:PT: NO Normal [facility] Comment on above: Performed By: #### 2 [id number] ####[place] [address] EMPLOYED IN A HEALTHCARE SETTING:FIND:PT: NO Normal [facility] Comment on above: Performed By: #### 2 [id number] ####[place] [address] FIRST TEST FOR CONDITION OF INTEREST:FIND:PT: Unknown Normal [facility] Comment on above: Performed By: #### 2 [id number] ####[place] [address] HAS SYMPTOMS RELATED TO CONDITION OF INTEREST:FIND:PT: Unknown Normal [facility] Comment on above: Performed By: #### 2 [id number] ####[place] [address] HOSPITALIZED FOR CONDITION OF INTEREST:FIND:PT: YES Normal [facility] Comment on above: Performed By: #### 2 [id number] ####[place] [address] STATUS:FIND:PT: NO Normal [facility] Comment on above: Performed By: #### 2 [id number] ####[facility] [address] [place] [address] RESIDES IN A [facility] CARE SETTING:FIND:PT: NO Normal [facility] Comment on above: Performed By: #### 2 [id number] ####[facility] [address] [place] [address] CRPon 07-12-2022 CRP [Mass/Vol] 6.3 mg/dL High <=1.9 [facility] Comment on above: Performed By: #### 1 [id number], [id number], [id number], [id number], [id number] ####[facility] [address] [place] [address] CT Head or Brain w/o Contras ton 07-12-2022 CT Head or Brain w/o Contrast Normal [facility] CT Spine Cervical w/o Contra ston 07-12-2022 CT Spine Cervical w/o Contrast Normal [facility] CTA Cheston 07-12-2022 CTA Chest Normal [facility] Capillary Glucose POCon Glucose [Mass/Vol] 284 mg/dL High 55-99 [facility] Comment on above: Result Comment: Pamela fleming Meter Performed By: #### 2 [id number] ####[facility] [address] [place] [address] Glucose [Mass/Vol] 378 mg/dL High -99 [facility] Comment on above: Performed By: #### 2 [id number] ####[facility] [address] [place] [address] Glucose [Mass/Vol] 296 mg/dL High 55-99 [facility] Comment on above: Performed By: #### 2 [id number] ####[facility] [address] [place] [address] Glucose [Mass/Vol] 324 mg/dL High 55-99 [facility] Comment on above: Result Comment: Shukri sandoval RN/ Performed By: #### 2 [id number] ####[facility] [address] [place] [address] Glucose [Mass/Vol] 409 mg/dL High 55-99 [facility] Comment on above: Result Comment: Shukri sandoval RN/ Performed By: #### 2 [id number] ####[facility] [address] [place] [address] Consent for Treatmenton 05 Consent for Treatment [id number] .00CD:127 Normal [facility] ED Clinical Summaryon 2022 ED Clinical Summary Normal [facility] ED Note-Physicianon 07-13-19 ED Note-Physician Normal [facility] Comment on above: Result Comment: Elec tronically Signed By: Marietta Guerrero DObr\Date and Time Signed: 07/12/22 01:02 EDT ED Patient Education Noteon 07-12-2022 ED Patient Education Note Normal [facility] ED Patient Summaryon 023 ED Patient Summary Normal [facility] EMS Documentationon 07-13-19 EMS Documentation Normal [facility] EMS Documentation Normal [facility] Influenza A&B Agon Influenzae A Ag Negative Normal Negative [facility] Comment on above: Performed By: #### 1 [id number], [id number] ####[facility] [address] [place] [address] Influenzae B Ag Negative Normal Negative [facility] Comment on above: Result Comment: Test sensitivity and specificity vary for age group, specimen type, antigen types, and prevalence of disease. Test results must be evaluated in conjunction with other clinical data available to the physician. Individuals who received nasally administered Influenza A vaccine may have positive test results up to 3 days after vaccination. Performed By: #### 1 [id number], [id number] ####[facility] [address] [place] [address] Insurance Correspondence Off ice07-12-2022 Insurance Correspondence Office [id number]# 1.00CD:127 Normal [facility] Interdisciplinary Note - Kane e Manageron 07-12-2022 Interdisciplinary Note - Servomechanism Assembler Normal [facility] Comment on above: Result Comment: Elec tronically Signed By: Cass Loera.hilda\Date and Time Signed: 07/12/22 12:26 EDT LDHon 07-12-2022 LDH [Catalytic activity/Vol] 160 Int._Unit/L Normal 93-218 [facility] Comment on above: Performed By: #### 1 [id number], 3471567, 7274983, 1393394, [id number] ####[facility] [address] [facility] [facility] [place] [address] Monitor Recordon 07-12-2022 Monitor Record [id number]# 1.00CD:127 Normal [facility] Monitor Record [id number]# 1.00CD:127 Normal [facility] Monitor Record [id number]# 1.00CD:127 Normal [facility] Procalcitoninon 07-12-2022 Procalcitonin .10 ng/mL Normal .00-.50 [facility] Comment on above: Result Comment: [...] to 24 hours. Performed By: #### 1 [id number], 8561421, 7751297, [id number], [id number] ####[facility] [address] [place] [address] RAD - Preliminary Cat Scan R eporton 07-12-2022 RAD - Preliminary Cat Scan Report [id number] .00CD:127 Normal [facility] Rapid COVID Antigen ([facility])on 07-12-2022 Rapid COV Int NEG Ctl Pass Normal [facility] Comment on above: Performed By: #### 1 [id number], [id number] ####[facility] [address] [place] [address] Rapid COV Int POS Ctl Pass Normal [facility] Comment on above: Performed By: #### 1 [id number], [id number] ####[facility] [address] [place] [address] SARS-CoV+SARS-CoV-2 (COVID-19) Ag IA.rapid Ql (Resp) Not detected Normal Not Detected [facility] Comment on above: Result Comment: The Cream.HR? System for Rapid Detection of SARS-CoV-2 is [...] or revoked sooner. Performed By: #### 1 [id number], [id number] ####[facility] [address] [place] [address] Troponin 3 Hr.on 07-12-2022 Troponin I.cardiac [Mass/Vol] 2.30 pg/mL Low 15.90-38.40 [facility] Comment on above: Result Comment: The 95% CI (Confidence Interval) PPV (Positive Predictive Value) for myocardial infarction in females is 38 pg/mL, in males 51 pg/mL. The results should be used in conjunction with clinical conditions of myocardial infarction.(Access High Sensitivity Troponin I Instructions For Use, [facility], October 2017) Performed By: #### 1 [id number] ####[facility] [address] [place] [address] Troponin 6 Hr.on 07-12-2022 Troponin I.cardiac [Mass/Vol] ng/mL Low 15.90-38.40 [facility] Comment on above: Result Comment: The 95% CI (Confidence Interval) PPV (Positive Predictive Value) for myocardial infarction in females is 38 pg/mL, in males 51 pg/mL. The results should be used in conjunction with clinical conditions of myocardial infarction.(Branch Metrics High Sensitivity Troponin I Instructions For Use, [facility], October 2017) Performed By: #### 1 [id number], 4215014, 5136514, 6880570, [id number] ####[address] [place] [address] UA With Cult Reflexon 2022 Bacteria LM Ql (Urine sed) 1+ /HPF Abnormal Trace [facility] Comment on above: Performed By: #### 2 197189, [id number] ####[facility] [address] [place] [address] Bilirubin Ql (U) Negative Normal Negative [facility] Comment on above: Performed By: #### 2 872858, [id number] ####[facility] [address] [place] [address] Clarity (U) CLEAR Normal Clear [facility] Comment on above: Performed By: #### 2 226820, [id number] ####[facility] [address] [place] [address] Color (U) YELLOW Normal Yellow [facility] Comment on above: Performed By: #### 2 080189, [id number] ####[facility] [address] [place] [address] Epithelial cells.squamous LM.HPF (Urine sed) [#/Area] 3-4 Normal 0-2 [facility] Comment on above: Performed By: #### 2 645594, [id number] ####[facility] [address] [place] [address] Glucose Test strip (U) [Mass/Vol] 2+ Abnormal Negative [facility] Comment on above: Performed By: #### 2 097425, [id number] ####[facility] [address] [place] [address] Hemoglobin Ql (U) TRACE Abnormal Negative [facility] Comment on above: Performed By: #### 2 273098, 46922386 ####[facility] [address] [place] [address] Ketones (U) [Mass/Vol] Negative Normal Negative [facility] Comment on above: Performed By: #### 2 068830, 19778404 ####[facility] [address] [facility] [place] [address] Wailuku.plasma/Wailuku. RBC (Bld) [Mass ratio] 4-20 Normal 0-3 [facility] Comment on above: Performed By: #### 2 040862, [id number] ####[facility] [address] [facility] [address] Mucus Ql (Urine sed) 1+ Normal Fish [facility] Comment on above: Performed By: #### 2 053849, [id number] ####[facility] [address] [place] [address] Nitrite Ql (U) Positive Abnormal Negative [facility] Comment on above: Performed By: #### 2 915930, [id number] ####[address] [address] pH (U) 6.0 [pH] Invalid Interpretation Code 5.0-9.0 [facility] Comment on above: Performed By: #### 2 479670, 80913765 ####[address] [address] Protein (U) [Mass/Vol] 2+ Abnormal Negative [facility] Comment on above: Performed By: #### 2 583503, 99089231 ####[address] [address] Specific gravity (U) [Rel density] 1.020 Invalid Interpretation Code 1.005-1.030 [facility] Comment on above: Performed By: #### 2 107295, [id number] ####[address] [address] Type of Urine collection method Clean Catch Normal [facility] Comment on above: Performed By: #### 2 251255, [id number] ####[address] [address] Urobilinogen Qn (U) 0.2 {Chintan'U}/dL Normal 0.0-1.0 [facility] Comment on above: Performed By: #### 2 485624, [id number] ####[address] [address] WBC Auto Ql (U) Negative Normal Negative [facility] Comment on above: Performed By: #### 2 561352, [id number] ####[address] [address] WBC LM.HPF (Urine sed) [#/Area] 6-15 Abnormal 0-5 [facility] Comment on above: Performed By: #### 2 561171, 70799012 ####Angela [facility] [address] [place] [address] XR Chest Single Viewon 07-12 XR Chest Single View Normal Fish er [facility] Auto Diffon 07-11-2022 Basophils/100 WBC (Bld) 0.2 % Normal 0.0-2.[address] [facility] Comment on above: Order Comment: Order Added by Discern Expert. Performed By: #### 2 324999, 91331618, 1018155, 9630431, 3542368, 1278521, 41207348, 9603444, 6267141, 40601999 ####Angela [facility] [address] [place] [address] Basophils/Leukocytes Auto (Bld) [Pure # fraction] 0.0 E9/L Normal 0.0-0.2 [facility] Comment on above: Order Comment: Order Added by Discern Expert. Performed By: #### 2 296267, 02303899, 4583025, 4234587, 4107487, 3784955, 06386797, 1691842, 8732938, 07790932 ####Angela [facility] [address] [place] [address] Eosinophils/100 WBC (Bld) 0.3 % Normal 0.0-8.0 [facility] Comment on above: Order Comment: Order Added by Discern Expert. Performed By: #### 2 146562, 92958830, 2790731, 1079916, 7548456, 5732484, 30397153, 5216661, 7345565, 84189909 ####[facility] [address] [place] [address] Eosinophils/Leukocytes Auto (Bld) [Pure # fraction] 0.0 E9/L Normal 0.0-0.5 [facility] Comment on above: Order Comment: Order Added by Discern Expert. Performed By: #### 2 579938, 47014781, 3775276, 3266656, 3218280, 1129133, 06750424, 9869123, 3419123, 83301188 ####[address] [place] [address] Lymphocytes/100 WBC (Bld) 15.1 % Normal 14.0-50.0 [facility] Comment on above: Order Comment: Order Added by Discern Expert. Performed By: #### 2 792136, 19714325, 0374185, 1687667, 7729326, 1748892, 82001376, 1367192, 4278976, 06363057 ####[address] [place] [address] Lymphocytes/Leukocytes Auto (Bld) [Pure # fraction] 1.0 E9/L Normal 1.0-4.0 [facility] Comment on above: Order Comment: Order Added by Discern Expert. Performed By: #### 2 067823, 21990171, 8894806, 8020679, 7387782, 0046195, 13601753, 1975043, 6463427, 28578496 ####[address] [address] Monocytes/100 WBC (Bld) 8.3 % Normal 4.0-14.0 [facility] Comment on above: Order Comment: Order Added by Discern Expert. Performed By: #### 2 782581, 72089978, 2900759, 2092408, 8745862, 0905910, 92225667, 1823608, 6593682, 44212692 ####[address] [place] [address] Monocytes/Leukocytes Auto (Bld) [Pure # fraction] 0.6 E9/L Normal 0.2-1.0 [facility] Comment on above: Order Comment: Order Added by Discern Expert. Performed By: #### 2 924224, 53607697, 4556646, 4457711, 7184701, 8977342, 88623720, 8379436, 4936374, 86453233 ####[address] [place] [address] Neutrophils/100 WBC (Bld) 76.1 % High 36.0-75.0 [facility] Comment on above: Order Comment: Order Added by Discern Expert. Performed By: #### 2 559686, 42151020, 8973057, 6445347, 4576420, 1920281, 52828921, 5056887, 0042950, 92856658 ####[facility] [address] [place] [address] Neutrophils/Leukocytes Auto (Bld) [Pure # fraction] 5.2 E9/L Normal 2.0-7.5 [facility] Comment on above: Order Comment: Order Added by Discern Expert. Performed By: #### 2 544171, 48436609, 6306526, 5043747, 0922224, 8927977, 50096819, 1935936, 3542121, 00137258 ####[facility] [address] [place] [address] BMPon 07-11-2022 Creatinine [Mass/Vol] 1.1 mg/dL Normal 0.5-1.3 [facility] Comment on above: Performed By: #### 2 705629, 12303746, 7500876, 1878826, 4199708, 1977680, 66125385, 6997974, 6874472, 58576827 ####[facility] [address] [place] [address] Urea nitrogen [Mass/Vol] 11 mg/dL Normal 5-21 [facility] Comment on above: Performed By: #### 2 514143, 22490296, 6343737, 6950274, 0991290, 1865873, 45145421, 5757303, 2977892, 09099374 ####[facility] [address] [place] [address] Urea nitrogen/Creatinine [Mass ratio] 10 No Units Normal 10-20 [facility] Comment on above: Performed By: #### 2 614020, 24065490, 0206476, 4372606, 5389948, 7292990, 84967682, 3449515, 1643083, 99266965 ####[facility] [address] [place] [address] Anion gap [Moles/Vol] 16 mmol/L Normal 6-16 [facility] Comment on above: Performed By: #### 2 050730, 48365476, 6539959, 6665764, 2045798, 4795049, 44943488, 6926081, 5010845, 67749991 ####[facility] [address] [place] [address] Calcium [Mass/Vol] 8.9 mg/dL Normal 8.9-11.1 [facility] Comment on above: Performed By: #### 2 699088, 74525898, 7653636, 6303433, 7606688, 3895957, 08424850, 5167637, 9565826, 04338653 ####[facility] [address] [place] [address] Chloride [Moles/Vol] 98 mmol/L Low 101-111 Fish [facility] Comment on above: Performed By: #### 2 598649, 42467789, 5496607, 2842359, 0725079, 7297371, 11251012, 0592369, 4656082, 25368277 ####[facility] [address] [place] [address] CO2 [Moles/Vol] 24 mmol/L Normal 21-31 [facility] Comment on above: Performed By: #### 2 807841, 03356659, 0503052, 1737675, 0640486, 3960509, 22391609, 6955296, 2685644, 52178439 ####[facility] [address] [place] [address] Glucose [Mass/Vol] 309 mg/dL High 55-199 [facility] Comment on above: Result Comment: If t his glucose result represents a fasting glucose, interpretation should refer to the following reference range: 55-99 mg/dL Performed By: #### 2 408422, 74106952, 2791543, 3635107, 4988286, 2281921, 40263089, 4122310, 6645935, 99968139 ####[facility] [address] [place] [address] Potassium [Moles/Vol] 4.7 mmol/L Normal 3.5-5.3 [facility] Comment on above: Performed By: #### 2 661047, 48908050, 7625348, 0929968, 3475501, 0899214, 83309255, 0896633, 8177236, 51223087 ####[facility] [address] [place] [address] Sodium [Moles/Vol] 133 mmol/L Low 135-145 [facility] Comment on above: Performed By: #### 2 525998, 23588194, 7549089, 9005652, 5210605, 8069778, 76798094, 3172507, 8699670, 07316134 ####[address] [place] [address] CBC w/ Auto Diffon 3 Erythrocyte distribution width (RBC) [Ratio] 14.5 % High 10.9-14.2 [facility] Comment on above: Performed By: #### 2 879061, 97068465, 5470678, 0847104, 6650291, 8333175, 05648156, 4174163, 6805728, 41645814 ####[address] [place] [address] Hematocrit (Bld) [Volume fraction] 44.2 % Normal 37.7-49.0 [facility] Comment on above: Performed By: #### 2 880221, 97598900, 5269765, 0189593, 3667312, 6158757, 14575072, 5245112, 9554554, 72403325 ####[address] [place] [address] Hemoglobin (Bld) [Mass/Vol] 15.0 g/dL Normal 13.5-17.5 [facility] Comment on above: Performed By: #### 2 294092, 36666670, 5966302, 0849176, 0579300, 5931832, 92708074, 8363818, 9991268, 09019825 ####[facility] [address] [place] [address] MCH (RBC) [Entitic mass] 31.8 pg Normal 27.0-34.0 [facility] Comment on above: Performed By: #### 2 631148, 40935965, 1378072, 3435893, 3115768, 0028378, 44402905, 8135967, 5745768, 58440781 ####[address] [place] [address] MCHC (RBC) [Mass/Vol] 34.0 g/dL Normal 31.4-36.0 [facility] Comment on above: Performed By: #### 2 757192, 88756391, 4098910, 9993878, 9908727, 3701019, 65420100, 2525093, 9493702, 24788061 ####[address] [address] MCV (RBC) [Entitic vol] 93.3 fL Normal 80.0-100.[address] [facility] Comment on above: Performed By: #### 2 579001, 57136048, 2955029, 3378934, 7137867, 5066337, 12614786, 9072005, 3796063, 16323374 ####[facility] [address] [place] [address] Platelet mean volume (Bld) [Entitic vol] 9.4 fL Normal 6.4-10.8 [facility] Comment on above: Performed By: #### 2 180481, 28336646, 5856100, 5191107, 2527856, 2103497, 73791384, 8702162, 3072285, 78441505 ####[address] [place] [address] Platelets (Bld) [#/Vol] 191.0 E9/L Normal 150.0-500.0 [facility] Comment on above: Performed By: #### 2 319047, 33050617, 2376128, 5585898, 7493643, 2081157, 05372536, 7677026, 6180432, 17772673 ####[facility] [address] [place] [address] RBC (Bld) [#/Vol] 4.7 E12/L Normal 4.3-5.9 [facility] Comment on above: Performed By: #### 2 764288, 40121366, 3370836, 0963578, 0579573, 7749241, 01964384, 2569501, 2320469, 76172577 ####[facility] [address] [place] [address] WBC corrected for nucl RBC Auto (Bld) [#/Vol] 6.8 E9/L Normal 4.0-11.0 [facility] Comment on above: Performed By: #### 2 929174, 73691642, 4695925, 7377688, 0103178, 3146418, 60061470, 6678629, 9946180, 92011725 ####[facility] [address] [place] [address] CHEMISTRYOrdered By: SYSTEM SYSTEM on 07-11-2022 Troponin [...] ratio] 10 mg/mg Normal 10 - 20 [facility] Remisol COAGULATIONOrdered By: Aura Qiu on 07-11-2022 aPTT Coag (PPP) [Time] 30.5 s Normal 25.1 - 36.5 second(s) [facility] Auto Coag Fibrin D-dimer FEU (PPP) [Mass/Vol] 1690 ng/mL FEU Invalid Interpretation Code 215 - 500 ng/mL FEU [facility] Auto Coag Comment on above: Result Comment: Resu lts Called To er dr guerrero By ts And Read Back For Confirmation On 07/11/2022 20:41:56 EDT Results Verified By Repeat Analysis INR Coag (PPP) [Relative time] 1.1 {INR} Invalid Interpretation Code [facility] Auto Coag PT Coag (PPP) [Time] 12.0 s Normal 9.4 - 1 2.5 second(s) [facility] Auto Coag Capillary Glucose POCon Glucose [Mass/Vol] 317 mg/dL High 55-99 [facility] Comment on above: Result Comment: Shukri sandoval RN/ Performed By: #### 2 99610964 ####[facility] [address] D-Dimeron 07-11-2022 Fibrin D-dimer FEU (PPP) [Mass/Vol] 1690 [id number] Abnormal 215-500 [facility] Comment on above: Result Comment: Resu lts [...] skin infectionsLiver cirrhosisPregnancy Performed By: #### 2 494041, 96094225, 2578467, 8396985, 7292300, 7757966, 75743977, 2549327, 4990169, 28329983 ####Julio César [facility] [address] [place] [address] ED Note-Nursingon 07-11-2022 ED Note-Nursing Normal [facility] HEMATOLOGYOrdered By: SYSTEM SYSTEM on 07-11-2022 Basophils/100 [...] 4.7 E12/L Normal 4.3 - 5.9 E12/L [facility] HemeAutoSS WBC corrected for nucl RBC Auto (Bld) [#/Vol] 6.8 E9/L Normal 4.0 - 11.0 E9/L [facility] HemeAutoSS Hep Func Panelon 07-11-2022 Albumin [Mass/Vol] 3.8 g/dL Normal 3.3-5.0 [facility] Comment on above: Performed By: #### 2 100640, 22504995, 3125101, 4444696, 8343345, 4118502, 36072710, 4040829, 8492742, 82867782 ####[facility] [address] [place] [address] Albumin/Globulin (S) [Mass conc ratio] 1.0 Low 1.1-2.2 [facility] Comment on above: Performed By: #### 2 375316, 14114246, 0788564, 1174530, 3254931, 0287974, 75459999, 1400340, 6872790, 01748996 ####[facility] [address] [place] [address] ALP [Catalytic activity/Vol] 92 Int._Unit/L Normal 21-98 [facility] Comment on above: Performed By: #### 2 424865, 36194954, 6565771, 6129606, 4957598, 4680035, 73360940, 8922703, 5916689, 64364983 ####[facility] [address] [place] [address] ALT No additional P-5'-P [Catalytic activity/Vol] 37 Int._Unit/L Normal 6-46 [facility] Comment on above: Performed By: #### 2 174751, 02845149, 5465954, 0547958, 7441113, 6771000, 34981544, 2634005, 6691015, 80092584 ####[address] [address] AST [Catalytic activity/Vol] 28 Int._Unit/L Normal 5-43 [facility] Comment on above: Performed By: #### 2 995935, 10719842, 6888936, 2023508, 3256706, 0702575, 40006165, 1569854, 1795440, 96031263 ####[address] [address] Bilirubin [Mass/Vol] 1.2 mg/dL High 0.0-1.1 [facility] Comment on above: Performed By: #### 2 836702, 92489585, 2334202, 5404318, 5642170, 3896087, 78909257, 0535331, 9644334, 78044740 ####[address] [place] [address] Bilirubin.direct [Mass/Vol] 0.2 mg/dL Normal 0.1-0.4 [facility] Comment on above: Performed By: #### 2 320103, 62538043, 7996665, 8484668, 0937205, 1940365, 17032687, 1830790, 3635414, 52484533 ####[facility] [address] [place] [address] Bilirubin.indirect [Mass or moles/Vol] 1.0 mg/dL High 0.1-0.9 [facility] Comment on above: Performed By: #### 2 258345, 80055116, 5845292, 2879553, 9295734, 3143012, 36921577, 9453046, 7088259, 86108711 ####[facility] [address] [place] [address] Globulin (S) [Mass/Vol] 3.7 g/dL Normal 1.4-4.[address] [facility] Comment on above: Performed By: #### 2 855444, 72434330, 0662189, 6262474, 1577474, 4389013, 10516167, 2858835, 7117162, 84808296 ####[facility] [address] [place] [address] Protein [Mass/Vol] 7.5 g/dL Normal 6.0-7.8 [facility] Comment on above: Performed By: #### 2 741917, 41686110, 5991719, 1174617, 8028675, 2771970, 21856832, 1314008, 8753141, 68146103 ####[facility] [address] [place] [address] Laboratory - Microbiology an d Antimicrobial susceptibilityOrdered By: Lupe Barnard on 07-11-2022 Bacteria identified Cx Nom (U) >100,000 cfu/ml Staphylococcus species Coagulase Positive [facility] MICRO OTHER TESTSOrdered By: Mariana Doyle on 07-11-2022 Influenzae A Ag Negative (07/11/22 10:22 PM) Normal Negative [facility] Man Sero Influenzae B Ag Negative (07/11/22 10:22 PM) Normal Negative FT Man Sero Rapid COV Int NEG Ctl Pass (07/11/22 10:22 PM) Normal FT Man Sero Rapid COV Int POS Ctl Pass (07/11/22 10:22 PM) Normal [facility] Man Sero SARS-CoV+SARS-CoV-2 (COVID-19) Ag IA.rapid Ql (Resp) Not Detected (07/11/22 10:22 PM) Normal Not Detected FT Man Sero Magnesiumon 07-11-2022 Magnesium [Mass/Vol] 1.4 mg/dL Normal 1.3-2.4 [facility] Comment on above: Performed By: #### 2 924721, 11498793, 2665490, 3254309, 2358592, 6353659, 27872068, 5031221, 5643107, 29087633 ####[facility] [address] [place] [address] [place] Screenon 07-11-2022 Heterophile Ab LA Ql (S) Negative Normal Negative [facility] Comment on above: Performed By: #### 2 225743, 87461447, 1089963, 0536733, 5894525, 4170602, 36297416, 9001692, 8491123, 60189039 ####[facility] [address] [place] [address] PT & PTTon 07-11-2022 aPTT Coag (PPP) [Time] 30.5 second(s) Normal 25.1-36.5 [facility] Comment on above: Result Comment: Para meter [...] the same coagulation reagent and instrumentation as [facility]. Currently there are no coagulation studies available worldwide for children to 14 days, and no normal ranges. Heparin therapeutic range (represented by Anti-Factor Xa activity of 0.2 - 0.4 U/mL) corresponds to PTT of 56.6 - 109.0 sec. Performed By: #### 2 969241, 71933154, 9579713, 2183353, 0854746, 5606792, 34224158, 9900415, 5585860, 25966049 ####[facility] [address] [place] [address] INR Coag (PPP) [Relative time] 1.1 {INR} Invalid Interpretation Code [facility] Comment on above: Result Comment: INR results are specifically intended to assess patients stabilized on long-term Anticoagulation therapy suggested INR?s ?Less Intensive Anticoagulation? 2.0 ? 3.0Conventional Range 3.0 ? 4.5 Performed By: #### 2 922127, 08997996, 4033535, 9500559, 4509974, 1947833, 35486805, 0702128, 7167596, 42395640 ####[facility] [address] [place] [address] PT Coag (PPP) [Time] 12.0 second(s) Normal 9.4-12.5 [facility] Comment on above: Result Comment: 15 d [...] the same coagulation reagent and instrumentation as [facility]. Currently there are no coagulation studies available worldwide for children to 14 days, and no normal ranges. Performed By: #### 2 764958, 03265991, 2505302, 7348437, 3629015, 1349339, 48403935, 8204351, 2703297, 83539430 ####[facility] [address] [place] [address] Pre-Arrival Noteon Pre-Arrival Note Normal [facility] Rapid COVID Antigen ([facility])on 07-11-2022 ADMITTED TO INTENSIVE CARE UNIT FOR CONDITION OF INTEREST:FIND:PT: NO Normal [facility] Comment on above: Performed By: #### 1 6167944, [id number] ####[place] [address] EMPLOYED IN A HEALTHCARE SETTING:FIND:PT: NO Normal [facility] Comment on above: Performed By: #### 1 2687494, [id number] ####[place] [address] FIRST TEST FOR CONDITION OF INTEREST:FIND:PT: YES Normal [facility] Comment on above: Performed By: #### 1 0380191, [id number] ####[place] [address] HAS SYMPTOMS RELATED TO CONDITION OF INTEREST:FIND:PT: YES Normal [facility] Comment on above: Performed By: #### 1 0055752, [id number] ####[place] [address] HOSPITALIZED FOR CONDITION OF INTEREST:FIND:PT: NO Normal [facility] Comment on above: Performed By: #### 1 5298274, [id number] ####[place] [address] STATUS:FIND:PT: NO Normal [facility] Comment on above: Performed By: #### 1 8103422, [id number] ####[place] [address] [facility]:FIND:PT: NO Normal [facility] Comment on above: Performed By: #### 1 1115652, [id number] ####[place] [address] SEROLOGYOrdered By: Aura humphrey on 07-11-2022 Heterophile Ab LA Ql (S) Negative (07/11/22 8:19 PM) Normal Negative [facility] Man Sero Troponin 0 Hr.on 07-11-2022 Troponin I.cardiac [Mass/Vol] 4.40 pg/mL Low 15.90-38.40 [facility] Comment on above: Result Comment: The 95% CI (Confidence Interval) PPV (Positive Predictive Value) for myocardial infarction in females is 38 pg/mL, in males 51 pg/mL. The results should be used in conjunction with clinical conditions of myocardial infarction.(Access High Sensitivity Troponin I Instructions For Use, Savana Ruben, October 2017) Performed By: #### 2 [id number], [id number], [id number], [id number], [id number], [id number] ####[facility] [id number] [place] [address] URINALYSISOrdered By: Cortez Doyle on 07-11-2022 Bacteria [...] PM) Normal Negative [facility] UA Auto SS [place].plasma/[place]. RBC (Bld) [Mass ratio] 4-20 /HPF Normal 0-3/HPF [facility] UA A uto SS Mucus Ql (Urine sed) 1+ (07/11/22 10:00 PM) Normal [facility] UA Auto SS Nitrite Ql (U) Positive *ABN* (07/11/22 10:00 PM) Invalid Interpretation Code Negative [facility] UA Auto SS pH (U) 6.0 *NA* (07/11/22 10:00 PM) Invalid Interpretation Code 5.0 - 9.0 [facility] Auto SS Protein (U) [Mass/Vol] 2+ *ABN* (07/11/22 10:00 PM) Invalid Interpretation Code Negative [facility] Auto SS Specific gravity (U) [Rel density] 1.020 *NA* (07/11/22 10:00 PM) Invalid Interpretation Code 1.005 - 1.030 [facility] Auto SS UA Spec Desc Clean Catch (07/11/22 10:00 PM) Normal [facility] Auto SS Urobilinogen Qn (U) [id number] {Chintan'U}/dL Normal 0.0 - 1.0 EU/dL [facility] Auto SS WBC Auto Ql (U) Negative (07/11/22 10:00 PM) Normal Negative [facility] Auto SS WBC LM.HPF (Urine sed) [#/Area] 6-15 /HPF Invalid Interpretation Code 0-5/HPF [facility] Auto SS eGFRon 07-11-2022 GFR/1.73 sq M.predicted among non-blacks MDRD (S/P/Bld) [Vol rate/Area] 91 mL/min/1.73 m2 Normal >=59 [facility] Comment on above: Order Comment: Order added by Discern Expert. Result Comment: [employer] julián kidney disease could be indicated at eGFR's of less than 60 mL/min/1.73m2. Kidney failure is indicated at less than 15 mL/min/1.73m2. Performed By: #### 2 [id number], [id number], [id number], [id number], [id number], [id number] ####[facility] [id number] [place] [address] POINT OF CARE GLUCOSEon Glucose [Mass/Vol] 512 mg/dL Critically high 74-106 [facility] Comment on above: Result Comment: Resu lt Not Confirmed Performed By: #### S EDR #### [facility] [address] [address] [address] Travis Sanchez CBC AUTO DIFFon 06-19-2022 BASO # 0.0 103/ul Normal 0.0-0.1 [facility] Comment on above: Performed By: #### C BC #### [facility] [address] [address] [address] Travis Sanchez Basophils/100 WBC (Bld) 0.1 % Critically low 0.2-2.0 [facility] Comment on above: Performed By: #### C BC #### [facility] [address] [place] [address] Dr. Travis Sanchez EO # 0.0 103/ul Normal 0.0-0.7 [facility] Comment on above: Performed By: #### C BC #### [facility] [address] [place] [address] Dr. Travis Sanchez Eosinophils/100 WBC (Bld) 0.1 % Critically low 0.9-7.0 [facility] Comment on above: Performed By: #### C BC #### [facility] [address] [place] [address] Dr. Travis Sanchez Erythrocyte distribution width (RBC) [Ratio] 13.6 % Normal 11.0-15.0 [facility] Comment on above: Performed By: #### C BC #### [facility] [address] [place] [address] Dr. Travis Sanchez Hematocrit (Bld) [Volume fraction] 41.6 % Critically low 42.0-54.0 [facility] Comment on above: Performed By: #### C BC #### [facility] [address] [place] [address] Dr. Travis Sanchez Hemoglobin (Bld) [Mass/Vol] 13.9 g/dL Critically low 14.0-18.0 [facility] Comment on above: Performed By: #### C BC #### [facility] [address] [place] [address] Dr. Travis Sanchez IG # 0.05 10e3/ul Critically high 0.00-0.03 [facility] Comment on above: Performed By: #### C BC #### [facility] [address] [place] [address] Dr. Travis Sanchez IG % 0.5 % Normal 0.0-0.5 [facility] Comment on above: Performed By: #### C BC #### [facility] [address] [address] [address] Travis Sanchez LYMPH # 1.1 103/ul Critically low 1.2-3.8 [facility] Comment on above: Performed By: #### C BC #### [facility] [address] [address] [address] Travis Sanchez Lymphocytes/100 WBC (Bld) 12.2 % Critically low 20.5-60.0 [facility] Comment on above: Performed By: #### C BC #### [facility] [address] [place] [address] Dr. Travis Sanchez MANUAL DIFF REQ NO Normal [facility] Comment on above: Performed By: #### C BC #### [facility] [address] [place] [address] Dr. Travis Sanchez MCH (RBC) [Entitic mass] 31.2 pg Normal 25.9-34.0 [facility] Comment on above: Performed By: #### C BC #### [facility] [address] [place] [address] Dr. Travis Sanchez MCHC (RBC) [Mass/Vol] 33.4 g/dL Normal 29.9-35.2 [facility] Comment on above: Performed By: #### C BC #### [facility] [address] [place] [address] Dr. Travis Sanchez MCV (RBC) [Entitic vol] 93.3 fL Normal 80.0-94.0 [facility] Comment on above: Performed By: #### C BC #### [facility] [address] [address] [address] Travis Sanchez MONO # 0.5 103/ul Normal 0.3-0.8 [facility] Comment on above: Performed By: #### C BC #### [facility] [address] [place] [address] Dr. Travis Sanchez Monocytes/100 WBC (Bld) 5.3 % Normal 1.7-12.0 [facility] Comment on above: Performed By: #### C BC #### [facility] [address] [address] [address] Travis Sanchez NEUT # 7.5 103/ul Critically high 1.4-6.5 [facility] Comment on above: Performed By: #### C BC #### [facility] [address] [address] [address] Travis Sanchez Neutrophils/100 WBC (Bld) 81.8 % Critically high 43.0-75.0 [facility] Comment on above: Performed By: #### C BC #### [facility] [address] [address] [address] Travis Sanchez Platelet mean volume (Bld) [Entitic vol] 10.6 fL Normal 9.5-13.5 [facility] Comment on above: Performed By: #### C BC #### [facility] [address] [place] [address] Dr. Travis Sanchez PLT 255 103/ul Normal 150-450 [facility] Comment on above: Performed By: #### C BC #### [facility] [address] [address] [address] Travis Sanchez RBC 4.46 106/ul Critically low 4.70-6.10 [facility] Comment on above: Performed By: #### C BC #### [facility] [address] [address] [address] Travis Sanchez WBC 9.1 103/ul Normal 4.0-11.0 [facility] Comment on above: Performed By: #### C BC #### [facility] [address] [place] [address] Dr. Travis Sanchez CRPon 06-19-2022 CRP 1.6 mg/dL Critically high <=1.0 [facility] Comment on above: Performed By: #### S EDR #### [facility] [address] [address] [address] Travis Sanchez PROF CHEM 8 (BAS METB)on Anion gap [Moles/Vol] 13.2 mmol/L Normal Th [facility] Comment on above: Performed By: #### S EDR #### [facility] [address] [address] [address] Travis Sanchez Calcium [Mass/Vol] 9.3 mg/dL Normal 8.5-10.1 [facility] Comment on above: Performed By: #### S EDR #### [facility] [address] [address] [address] Travis Sanchez Chloride [Moles/Vol] 103 mmol/L Normal 98-107 [facility] Comment on above: Performed By: #### S EDR #### [facility] [address] [address] [address] Travis Sanchez CO2 [Moles/Vol] 24.3 mmol/L Normal 21.0-32.0 [facility] Comment on above: Performed By: #### S EDR #### [facility] [address] [place] [address] Dr. Travis Sanchez Creatinine [Mass/Vol] 0.72 mg/dL Normal 0.70-1.30 [facility] Comment on above: Performed By: #### S EDR #### [facility] [address] [place] [address] Dr. Travis Sanchez EGFR-AF GHANAIAN >60 Normal >=60 [facility] Comment on above: Performed By: #### S EDR #### [facility] [address] [place] [address] Dr. Travis Sanchez EGFR-NON AF GHANAIAN >60 Normal >=60 [facility] Comment on above: Performed By: #### S EDR #### [facility] [address] [place] [address] Dr. Travis Sanchez Glucose [Mass/Vol] 290 mg/dL Critically high 74-106 [facility] Comment on above: Performed By: #### S EDR #### [facility] [address] [place] [address] Dr. Travis Sanchez Potassium [Moles/Vol] 4.5 mmol/L Normal 3.5-5.1 [facility] Comment on above: Performed By: #### S EDR #### [facility] [address] [place] [address] Dr. Travis Sanchez Sodium [Moles/Vol] 136 mmol/L Normal 136-145 [facility] Comment on above: Performed By: #### S EDR #### [facility] [address] [place] [address] Dr. Travis Sanchez Urea nitrogen [Mass/Vol] 20.0 mg/dL Critically high 7.0-18.0 [facility] Comment on above: Performed By: #### S EDR #### [facility] [address] [place] [address] Dr. Travis Sanchez Urea nitrogen/Creatinine [Mass ratio] 27.8 mg/mg Normal [facility] Comment on above: Performed By: #### S EDR #### [facility] [address] [place] [address] Dr. Travis Sanchez CBC AUTO DIFFon 06-18-2022 BASO # 0.0 103/ul Normal 0.0-0.1 [facility] Comment on above: Performed By: #### S EDR #### [facility] [address] [place] [address] Dr. Travis Sanchez Basophils/100 WBC (Bld) 0.2 % Normal 0.2-2.0 [facility] Comment on above: Performed By: #### S EDR #### [facility] [address] [place] [address] Dr. Travis Sanchez EO # 0.0 103/ul Normal 0.0-0.7 [facility] Comment on above: Performed By: #### S EDR #### [facility] [address] [place] [address] Dr. Travis Sanchez Eosinophils/100 WBC (Bld) 0.4 % Critically low 0.9-7.0 [facility] Comment on above: Performed By: #### S EDR #### [facility] [address] [place] [address] Dr. Travis Sanchez Erythrocyte distribution width (RBC) [Ratio] 13.9 % Normal 11.0-15.0 [facility] Comment on above: Performed By: #### S EDR #### [facility] [address] [address] [address] Tarvis Sanchez Hematocrit (Bld) [Volume fraction] 42.0 % Normal 42.0-54.0 [facility] Comment on above: Performed By: #### S EDR #### [facility] [address] [place] [address] Dr. Travis Sanchez Hemoglobin (Bld) [Mass/Vol] 14.2 g/dL Normal 14.0-18.0 [facility] Comment on above: Performed By: #### S EDR #### [facility] [address] [place] [address] Dr. Travis Sanchez IG # 0.03 10e3/ul Normal 0.00-0.03 [facility] Comment on above: Performed By: #### S EDR #### [facility] [address] [place] [address] Dr. Travis Sanchez IG % 0.4 % Normal 0.0-0.5 [facility] Comment on above: Performed By: #### S EDR #### [facility] [address] [place] [address] Dr. Travis Sanchez LYMPH # 1.7 103/ul Normal 1.2-3.8 [facility] Comment on above: Performed By: #### S EDR #### [facility] [address] [place] [address] Dr. Travis Sanchez Lymphocytes/100 WBC (Bld) 20.7 % Normal 20.5-60.0 [facility] Comment on above: Performed By: #### S EDR #### [facility] [address] [place] [address] Dr. Travis Sanchez MANUAL DIFF REQ NO Normal [facility] Comment on above: Performed By: #### S EDR #### [facility] [address] [place] [address] Dr. Travis Sanchez MCH (RBC) [Entitic mass] 31.8 pg Normal 25.9-34.0 [facility] Comment on above: Performed By: #### S EDR #### [facility] [address] [address] [address] Travis Sanchez MCHC (RBC) [Mass/Vol] 33.8 g/dL Normal 29.9-35.2 [facility] Comment on above: Performed By: #### S EDR #### [facility] [address] [address] [address] Travis Sanchez MCV (RBC) [Entitic vol] 94.0 fL Normal 80.0-94.0 [facility] Comment on above: Performed By: #### S EDR #### [facility] [address] [place] [address] Dr. Travis Sanchez MONO # 0.5 103/ul Normal 0.3-0.8 [facility] Comment on above: Performed By: #### S EDR #### [facility] [address] [place] [address] Dr. Travis Sanchez Monocytes/100 WBC (Bld) 5.9 % Normal 1.7-12.0 [facility] Comment on above: Performed By: #### S EDR #### [facility] [address] [place] [address] Dr. Travis Sanchez NEUT # 5.9 103/ul Normal 1.4-6.5 [facility] Comment on above: Performed By: #### S EDR #### [facility] [address] [place] [address] Dr. Travis Sanchez Neutrophils/100 WBC (Bld) 72.4 % Normal 43.0-75.0 [facility] Comment on above: Performed By: #### S EDR #### [facility] [address] [place] [address] Dr. Travis Sanchez Platelet mean volume (Bld) [Entitic vol] 11.3 fL Normal 9.5-13.5 [facility] Comment on above: Performed By: #### S EDR #### [facility] [address] [place] [address] Dr. Travis Sanchez PLT 236 103/ul Normal 150-450 [facility] Comment on above: Performed By: #### S EDR #### [facility] [address] [address] [address] Travis Sanchez RBC 4.47 106/ul Critically low 4.70-6.10 [facility] Comment on above: Performed By: #### S EDR #### [facility] [address] [address] [address] Travis Sanchez WBC 8.1 103/ul Normal 4.0-11.0 [facility] Comment on above: Performed By: #### S EDR #### [facility] [address] [address] [address] Travis Sanchez CRPon 06-18-2022 CRP 2.9 mg/dL Critically high <=1.0 [facility] Comment on above: Performed By: #### S EDR #### [facility] [address] [address] [address] Travis Sanchez Covid-19 PCR ([facility])on 06-06 SARS-CoV-2 (COVID-19) RNA ECTOR+probe Ql (Unsp spec) Not detected Normal NOT DETECTED [facility] Comment on above: Result Comment: When diagnostic [...] for this test is supported by the [place] of Health and Human Service's declaration that [...] used). Performed By: #### C BC #### [facility] [address] [address] [address] Travis Sanchez MRI LSHAYES WO CONon 06-19-19 23 MRI [facility] WO CON HISTORY: Right-sided low back pain with radiculopathy for the past 2-3 weeks. The patient was found to have a large disc extrusion at the L4-L5 level on a recent CT scan. MRI [facility] WO CON: 06/18/2022 9:29 AM EDT [...] by: GERTRUDIS CHAUHAN Date: 2022-06-18 13:13 Normal [facility] POINT OF CARE GLUCOSEon 06-06 Glucose [Mass/Vol] 352 mg/dL Critically high -106 [facility] Comment on above: Performed By: #### P OCGLUC #### [facility] [address] [address] [address] Travis Sanchez Glucose [Mass/Vol] 183 mg/dL Critically high [facility]106 [facility] Comment on above: Performed By: #### S EDR #### [facility] [address] [address] [address] Travis Sanchez Glucose [Mass/Vol] 178 mg/dL Critically high [address] [place] [address] Comment on above: Performed By: #### P OCGLUC #### [facility] [address] [address] [address] Travis Sanchez Glucose [Mass/Vol] 252 mg/dL Critically high [facility]106 [facility] Comment on above: Performed By: #### P SASC #### [facility] [address] [address] [address] Travis Sanchez Glucose [Mass/Vol] 272 mg/dL Critically high [address] [place] [address] Comment on above: Performed By: #### S EDR #### [facility] [address] [address] [address] Travis Sanchez PROF CHEM 8 (BAS METB)on Anion gap [Moles/Vol] 15.3 mmol/L Normal [facility] Comment on above: Performed By: #### S EDR #### [facility] [address] [address] [address] Travis Sanchez Calcium [Mass/Vol] 8.6 mg/dL Normal 8.5-10.1 [facility] Comment on above: Performed By: #### S EDR #### [facility] [address] [address] [address] Travis Sanchez Chloride [Moles/Vol] 102 mmol/L Normal 98-107 [facility] Comment on above: Performed By: #### S EDR #### [facility] [address] [address] [address] Travis Sanchez CO2 [Moles/Vol] 25.1 mmol/L Normal 21.0-32.0 [facility] Comment on above: Performed By: #### S EDR #### [facility] [address] [place] [address] Dr. Travis Sanchez Creatinine [Mass/Vol] 0.84 mg/dL Normal 0.70-1.30 [facility] Comment on above: Performed By: #### S EDR #### [facility] [address] [address] [address] Travis Sanchez EGFR-AF GHANAIAN >60 Normal >=60 [facility] Comment on above: Performed By: #### S EDR #### [facility] [address] [address] [address] Travis Sanchez EGFR-NON AF GHANAIAN >60 Normal >=60 [facility] Comment on above: Performed By: #### S EDR #### [facility] [address] [address] [address] Travis Sanchez Glucose [Mass/Vol] 348 mg/dL Critically high 74-106 [facility] Comment on above: Performed By: #### S EDR #### [facility] [address] [address] [address] Travis Sanchez Potassium [Moles/Vol] 4.4 mmol/L Normal 3.5-5.1 [facility] Comment on above: Performed By: #### S EDR #### [facility] [address] [address] [address] Travis Sanchez Sodium [Moles/Vol] 138 mmol/L Normal 136-145 [facility] Comment on above: Performed By: #### S EDR #### [facility] [address] [address] [address] Travis Sanchez Urea nitrogen [Mass/Vol] 14.0 mg/dL Normal 7.0-18.0 [facility] Comment on above: Performed By: #### S EDR #### [facility] [address] [address] [address] Travis Sanchez Urea nitrogen/Creatinine [Mass ratio] 16.7 mg/mg Normal [facility] Comment on above: Performed By: #### S EDR #### [facility] [address] [address] [address] [facility] mm/hr Critically high <=15 [facility] Comment on above: Performed By: #### S EDR #### [facility] [address] [place] [address] LSPINE WO CONon [...] by: ELIUD HERNANDEZ Date: 2022-06-12 18:44 Normal [facility] Ambulatory Visit Summaryon 0 06-11-2022 Ambulatory Visit Summary Normal [facility] Patient Educationon 06-12-19 Patient Education Normal [facility] Urology Office/Clinic Noteon 06-11-2022 Urology Office/Clinic Note Normal [facility] Comment on above: Result Comment: Elec tronically Signed By: MARIANA BRIGGS PA-C\.br\Date and Time Signed: 06/11/22 09:07 EDT\.br\Electronically Co-Signed By: Alannah Ragland MA\.br\Date and Time Co-Signed: 06/11/22 09:01 EDT CBC AUTO DIFFon 05-24-2022 BASO # 0.1 103/ul Normal 0.0-0.1 [facility] Comment on above: Performed By: #### C BC #### [facility] [address] [place] [address] Dr. Travis Sanchez Basophils/100 WBC (Bld) 0.4 % Normal 0.2-2.0 [facility] Comment on above: Performed By: #### C BC #### [facility] [address] [place] [address] Dr. Travis Sanchez EO # 0.0 103/ul Normal 0.0-0.7 [facility] Comment on above: Performed By: #### C BC #### [facility] [address] [place] [address] Dr. Travis Sanchez Eosinophils/100 WBC (Bld) 0.3 % Critically low 0.9-7.0 [facility] Comment on above: Performed By: #### C BC #### [facility] [address] [place] [address] Dr. Travis Sanchez Erythrocyte distribution width (RBC) [Ratio] 14.3 % Normal 11.0-15.0 [facility] Comment on above: Performed By: #### C BC #### [facility] [address] [place] [address] Dr. Travis Sanchez Hematocrit (Bld) [Volume fraction] 41.2 % Critically low 42.0-54.0 [facility] Comment on above: Performed By: #### C BC #### [facility] [address] [place] [address] Dr. Travis Sanchez Hemoglobin (Bld) [Mass/Vol] 13.9 g/dL Critically low 14.0-18.0 [facility] Comment on above: Performed By: #### C BC #### [facility] [address] [place] [address] Dr. Travis Sanchez IG # 0.05 10e3/ul Critically high 0.00-0.03 [facility] Comment on above: Performed By: #### C BC #### [facility] [address] [place] [address] Dr. Travis Sanchez IG % 0.4 % Normal 0.0-0.5 [facility] Comment on above: Performed By: #### C BC #### [facility] [address] [place] [address] Dr. Travis Sanchez LYMPH # 1.2 103/ul Normal 1.2-3.8 [facility] Comment on above: Performed By: #### C BC #### [facility] [address] [place] [address] Dr. Travis Sanchez Lymphocytes/100 WBC (Bld) 8.9 % Critically low 20.5-60.0 [facility] Comment on above: Performed By: #### C BC #### [facility] [address] [place] [address] Dr. Travis Sanchez MANUAL DIFF REQ NO Normal [facility] [facility] Comment on above: Performed By: #### C BC #### [facility] [address] [place] [address] Dr. Travis Sanchez MCH (RBC) [Entitic mass] 31.5 pg Normal 25.9-34.0 [facility] Comment on above: Performed By: #### C BC #### [facility] [address] [place] [address] Dr. Travis Sanchez MCHC (RBC) [Mass/Vol] 33.7 g/dL Normal 29.9-35.2 [facility] Comment on above: Performed By: #### C BC #### [facility] [address] [place] [address] Dr. Travis Sanchez MCV (RBC) [Entitic vol] 93.4 fL Normal 80.0-94.0 [facility] Comment on above: Performed By: #### C BC #### [facility] [address] [place] [address] Dr. Travis Sanchez MONO # 1.0 103/ul Critically high 0.3-0.8 [facility] Comment on above: Performed By: #### C BC #### [facility] [address] [place] [address] Dr. Travis Sanchez Monocytes/100 WBC (Bld) 7.3 % Normal 1.7-12.0 [facility] Comment on above: Performed By: #### C BC #### [facility] [address] [place] [address] Dr. Travis Sanchez NEUT # 11.4 103/ul Critically high 1.4-6.5 [facility] Comment on above: Performed By: #### C BC #### [facility] [address] [place] [address] Dr. Travis Sanchez Neutrophils/100 WBC (Bld) 82.7 % Critically high 43.0-75.0 [facility] Comment on above: Performed By: #### C BC #### [facility] [address] [place] [address] Dr. Travis Sanchez Platelet mean volume (Bld) [Entitic vol] 11.0 fL Normal 9.5-13.5 [facility] Comment on above: Performed By: #### C BC #### [facility] [address] [place] [address] Dr. Travis Sanchez PLT 262 103/ul Normal 150-450 [facility] Comment on above: Performed By: #### C BC #### [facility] [address] [place], [place] [id number] Dr. Travis Sanchez RBC 4.41 106/ul Critically low 4.70-6.10 [facility] Comment on above: Performed By: #### C BC #### [facility] [address] [place] [address] Dr. Travis Sanchez WBC 13.8 103/ul Critically high 4.0-11.0 [facility] Comment on above: Performed By: #### C BC #### [facility] [address], [place] [address] Dr. Travis Sanchez CRPon 05-24-2022 CRP 16.3 mg/dL Critically high <=1.0 [facility] Comment on above: Performed By: #### P SASC #### [facility] [address] [place], [place] [address] FACIAL BONES WO [...] by: SEGUN GALLEGOS Date: 2022-05-24 00:14 Normal [facility] LACTATE/LACTIC ACIDon 2022 Lactate [Moles/Vol] 1.3 mmol/L Normal 0.4-2.0 [facility] Comment on above: Performed By: #### C BC #### [facility] [address] [place] [address] Dr. Travis Sanchez POINT OF CARE GLUCOSEon 05-06 Glucose [Mass/Vol] 208 mg/dL Critically high 74-106 [facility] Comment on above: Performed By: #### P SASC #### [facility] [address] [place] [address] Dr. Travis Sanchez PROF CHEM 8 (BAS METB)on Anion gap [Moles/Vol] 13.9 mmol/L Normal [facility] Comment on above: Performed By: #### P SASC #### [facility] [address] [place] [address] Dr. Travis Sanchez Calcium [Mass/Vol] 8.8 mg/dL Normal 8.5-10.1 [facility] Comment on above: Performed By: #### P SASC #### [facility] [address] [place] [address] Dr. Travis Sanchez Chloride [Moles/Vol] 98 mmol/L Normal 98-107 [facility] Comment on above: Performed By: #### P SASC #### [facility] [address] [address] [address] Travis Sanchez CO2 [Moles/Vol] 25.9 mmol/L Normal 21.0-32.0 [facility] Comment on above: Performed By: #### P SASC #### [facility] [address] [place] [address] Dr. Travis Sanchez Creatinine [Mass/Vol] 0.74 mg/dL Normal 0.70-1.30 [facility] Comment on above: Performed By: #### P SASC #### [facility] [address] [place] [address] Dr. Travis Sanchez EGFR-AF GHANAIAN >60 Normal >=60 [facility] Comment on above: Performed By: #### P SASC #### [facility] [address] [place] [address] Dr. Travis Sanchez EGFR-NON AF GHANAIAN >60 Normal >=60 [facility] Comment on above: Performed By: #### P SASC #### [facility] [address] [address] [address] Travis Sanchez Glucose [Mass/Vol] 203 mg/dL Critically high 74-106 T [facility] Comment on above: Performed By: #### P SASC #### [facility] [address] [place] [address] Dr. Travis Sanchez Potassium [Moles/Vol] 3.8 mmol/L Normal 3.5-5.1 [facility] Comment on above: Performed By: #### P SASC #### [facility] [address] [address] [address] Travis Sanchez Sodium [Moles/Vol] 134 mmol/L Critically low 136-145 Th [facility] Comment on above: Performed By: #### P SASC #### [facility] [address] [place] [address] Dr. Travis Sanchez Urea nitrogen [Mass/Vol] 9.0 mg/dL Normal 7.0-18.0 [facility] Comment on above: Performed By: #### P SASC #### [facility] [address] [place] [address] Dr. Travis Sanchez Urea nitrogen/Creatinine [Mass ratio] 12.2 mg/mg Normal [facility] Comment on above: Performed By: #### P [facility] #### [facility] [address], [place] [address] Dr. Travis Sanchez SED RATE WESTERGRENon 2022 SED RATE 61 mm/hr Critically high <=15 [facility] Comment on above: Performed By: #### S EDR #### [facility] [address], [place] [address] Dr. Travis Sanchez Glucose Glucometer (BldC) [M ass/Vol]Ordered By: Dell Kim on 04-04-2022 Glucose [Mass/Vol] 144 mg/dL [facility] Comment on above: Random Glucose Refer ence Range is dependent on time and content of last meal. Glucose of more than 200 mg/dL in a nonstressed, ambulatory subject supports the diagnosis of Diabetes Mellitus. Glucose Poct Glucometerson 0 04-04-2022 Glucose [Mass/Vol] 144 mg/dL Normal [facility] Comment on above: Result Comment: [place] om Glucose Reference Range is dependent on time and content of last meal. Glucose of more than 200 mg/dL in a nonstressed, ambulatory subject supports the diagnosis of Diabetes Mellitus. PERFORMED BY: [facility] [address] [place] [address] PATHOLOGIST PROGRAM CONTROL ANALYST JOSSELYN ROSEN M.D. Performed By: #### G LULS #### Point of Care testing , Glucose Poct Glucometerson 0 04-03-2022 Glucose [Mass/Vol] 143 mg/dL Normal [facility] Comment on above: Result Comment: [place] om Glucose Reference Range is dependent on time and content of last meal. Glucose of more than 200 mg/dL in a nonstressed, ambulatory subject supports the diagnosis of Diabetes Mellitus. PERFORMED BY: [facility] [address] [address] PATHOLOGIST PROGRAM CONTROL ANALYST JOSSELYN ROSEN M.D. Performed By: #### G LULS #### Point of Care testing , Cholesterol [Mass/volume] in Serum or PlasmaOrdered By: Dell Kim on 04-02-2022 Cholesterol [Mass/Vol] 244 mg/dL 140-200 [facility] Comment on above: Chol less than 200 m g/dl low riskChol 201-239 mg/dl borderline riskChol 240 mg/dl and greater high risk Cholesterol in LDL Calc [Mas s/Vol]Ordered By: Dell Kim on 04-02-2022 Cholesterol in LDL [Mass/Vol] [facility] Comment on above: Test not performed Cholesterol in VLDL Calc [Ma ss/Vol]Ordered By: Dell Kim on 04-02-2022 Cholesterol in VLDL [Mass/Vol] [facility] Comment on above: Test not performed Glucose Poct Glucometerson 0 04-02-2022 Commemt1 Glu2: Cleaned Meter Normal [facility] Comment on above: Result Comment: PERF ORMED BY: [place] [address] PATHOLOGIST PROGRAM CONTROL ANALYST JOSSELYN ROSEN M.D. Performed By: #### G LULS ####Point of Care testing, Glucose [Mass/Vol] 239 mg/dL Normal [facility] Comment on above: Result Comment: [facility] Glucose Reference Range is dependent on time and content of last meal. Glucose of more than 200 mg/dL in a nonstressed, ambulatory subject supports the diagnosis of Diabetes Mellitus. Performed By: #### G LULS ####Point of Care testing, LDL Cholesterol Measuredon 0 04-02-2022 LDL Cholesterol Measured 122 mg/dL High 0-100 [facility] Comment on above: Result Comment: LDL ATP III CLASSIFICATION LDL less than 100 mg/dL Optimal LDL 100-129 mg/dL Near or above optimal LDL 130-159 mg/dL Borderline high LDL 160-189 mg/dL High LDL greater than 189 mg/dL Very high Performed By: #### L IPID, [id number], TSH3 wRFLX, LDLD #### [address] Lipid Panelon 04-02-2022 Cholesterol [Mass/Vol] 244 mg/dL High 140-200 [facility] Comment on above: Result Comment: Chol less than 200 mg/dl low risk Chol 201-239 mg/dl borderline risk Chol 240 mg/dl and greater high risk Performed By: #### L IPID, [id number], TSH3 wRFLX, LDLD #### [facility] [address] [id number] [place] Cholesterol in HDL [Mass/Vol] 29 mg/dL Normal 29-71 [facility] Comment on above: Result Comment: HDL CHOL ATP-III CLASSIFICATION Cardiovascular Risk HDL > or equal to 60 mg/dL LOW HDL < 40 mg/dL HIGH Performed By: #### L IPID, [id number], TSH3 wRFLX, LDLD #### [facility] [address] Cholesterol.total/Linette sterol in HDL [Mass ratio] 8.4 {ratio} Normal <5.0 [facility] Comment on above: Performed By: #### L IPID, [id number], TSH3 wRFLX, LDLD #### [facility] [address] [id number] [facility] LDL Cholesterol,Calculated Not performed Normal 0-100 [facility] Comment on above: Performed By: #### L IPID, [id number], TSH3 wRFLX, LDLD #### [facility] [address] [id number] [place] Triglyceride w/Reflex 622 mg/dL High 35-149 [facility] Comment on above: Result Comment: TRIG [...] and resulted. Performed By: #### L IPID, [id number], TSH3 wRFLX, LDLD #### [facility] [address] [id number] [place] VLDL CHOLESTEROL Not performed Normal [facility] Comment on above: Performed By: #### L IPID, [id number], TSH3 wRFLX, LDLD #### [facility] [address] No Panel InformationOrdered By: Dell Kim on 04-02-2022 Bedside Glucose Comment Glu2: cleaned meter [facility] 25-Hydroxy Vitamin D Total < 7.0 ng/mL 30-100 [facility] Comment on above: VITAMIN D STATUS 25( [place])VITAMIN D RANGE (ng/mL) Deficient <20 Insufficient 20 to <30Sufficient 30 to 100Reference: Rosy MF,Byron MENDOZA, Rajinder GALDAMEZ, et al. Evaluation,treatment, and prevention of vitamin D deficiency; an Endocrine Society clinical practice guideline. JCEM. 2010; 96(7):1911-30. Serum or plasma cholesterol in LDL measurement (mass/volume)Ordered By: Dell Kim on 04-02-2022 Cholesterol in LDL [Mass/Vol] 122 mg/dL 0-100 [facility] Comment on above: LDL ATP III CLASSIFI CATIONLDL less than 100 mg/dL OptimalLDL 100-129 mg/dL Near or above optimalLDL 130-159 mg/dL Borderline highLDL 160-189 mg/dL HighLDL greater than 189 mg/dL Very high Serum or plasma high density lipoprotein (HDL) cholesterol measurementOrdered By: Dell Kim on 04-02-2022 Cholesterol in HDL [Mass/Vol] 29 mg/dL 29-71 [facility] Comment on above: HDL CHOL ATP-III CLA SSIFICATION Cardiovascular RiskHDL > or equal to 60 mg/dL LOWHDL < 40 mg/dL HIGH Serum or plasma total choles terol/high density lipoprotein (HDL) cholesterol mass ratOrdered By: Dell Kim on 04-02-2022 Cholesterol.total/Linette sterol in HDL [Mass ratio] 8.4 {ratio} <5.0 [facility] TSH DL <= 0.005 mIU/L QnOrde red By: Dell Kim on 04-02-2022 TSH Qn 1.06 m[IU]/L 0.45-5.33 [facility] Thyroid Stim Hormone w/Rflxo n 04-02-2022 Thyroid Stim Hormone w/Rflx 1.06 u[iU]/mL Normal 0.45-5.33 [facility] Comment on above: Performed By: #### L IPID, [id number], TSH3 wRFLX, LDLD #### [facility] [address] [id number] [facility] Triglyceride [Mass/volume] i n Serum or PlasmaOrdered By: Dell Kim on 04-02-2022 Triglyceride [Mass/Vol] 622 mg/dL 35-149 [facility] Comment on above: [...] 25 Hydroxy Total < 7.0 Low 30-100 [facility] Comment on above: Result Comment: SANDRA MIN D STATUS 25([place])VITAMIN D RANGE (ng/mL) Deficient <20 Insufficient 20 to <30 Sufficient 30 to 100 Reference: Rosy MF,Byron NC, Hilario-Alex GALDAMEZ, et al. Evaluation,treatment, and prevention of vitamin D deficiency; an Endocrine Society clinical practice guideline. JCEM. 2010; 96(7):1911-30. PERFORMED BY: [place] [address] PATHOLOGIST PROGRAM CONTROL ANALYST JOSSELYN ROSEN M.D. Performed By: #### L IPID, [id number], TSH3 wRFLX, LDLD #### [facility] [address] [id number] [facility] ACETAMINOPHENon 04-01-2022 Acetaminophen [Mass/Vol] ug/mL Critically low 10.0-30.0 [facility] Comment on above: Performed By: #### C VDTBH #### [facility] [address] [address] [address] Travis Sanchez CBC AUTO DIFFon 04-01-2022 BASO # 0.1 103/ul Normal 0.0-0.1 [facility] Comment on above: Performed By: #### C BC #### [facility] [address] [address] [address] Travis Sanchez Basophils/100 WBC (Bld) 0.8 % Normal 0.2-2.0 [facility] Comment on above: Performed By: #### C BC #### [facility] [address] [address] [address] Travis Sanchez EO # 0.1 103/ul Normal 0.0-0.7 [facility] Comment on above: Performed By: #### C BC #### [facility] [address] [place] [address] Dr. Travis Sanchez Eosinophils/100 WBC (Bld) 1.3 % Normal 0.9-7.0 [facility] Comment on above: Performed By: #### C BC #### [facility] [address] [place] [address] Dr. Travis Sanchez Erythrocyte distribution width (RBC) [Ratio] 14.1 % Normal 11.0-15.0 [facility] Comment on above: Performed By: #### C BC #### [facility] [address] [place] [address] Dr. Travis Sanchez Hematocrit (Bld) [Volume fraction] 47.9 % Normal 42.0-54.0 [facility] Comment on above: Performed By: #### C BC #### [facility] [address] [place] [address] Dr. Travis Sanchez Hemoglobin (Bld) [Mass/Vol] 15.4 g/dL Normal 14.0-18.0 [facility] Comment on above: Performed By: #### C BC #### [facility] [address] [place] [address] Dr. Travis Sanchez IG # 0.03 10e3/ul Normal 0.00-0.03 [facility] Comment on above: Performed By: #### C BC #### [facility] [address] [place] [address] Dr. Travis Sanchez IG % 0.4 % Normal 0.0-0.5 [facility] Comment on above: Performed By: #### C BC #### [facility] [address] [place] [address] Dr. Travis Sanchez LYMPH # 1.7 103/ul Normal 1.2-3.8 [facility] Comment on above: Performed By: #### C BC #### [facility] [address] [place] [address] Dr. Travis Sanchez Lymphocytes/100 WBC (Bld) 22.1 % Normal 20.5-60.0 [facility] Comment on above: Performed By: #### C BC #### [facility] [address] [place] [address] Dr. Travis Sanchez MANUAL DIFF REQ NO Normal [facility] Comment on above: Performed By: #### C BC #### [facility] [address] [place] [address] Dr. Travis Sanchez MCH (RBC) [Entitic mass] 31.5 pg Normal 25.9-34.0 [facility] Comment on above: Performed By: #### C BC #### [facility] [address] [place] [address] Dr. Trvais Sanchez MCHC (RBC) [Mass/Vol] 32.2 g/dL Normal 29.9-35.2 [facility] Comment on above: Performed By: #### C BC #### [facility] [address] [place] [address] Dr. Travis Sanchez MCV (RBC) [Entitic vol] 98.0 fL Critically high 80.0-94 .0 [facility] Comment on above: Performed By: #### C BC #### [facility] [address] [place] [address] Dr. Travis Sanchez MONO # 0.5 103/ul Normal 0.3-0.8 [facility] Comment on above: Performed By: #### C BC #### [facility] [address] [place] [address] Dr. Travis Sanchez Monocytes/100 WBC (Bld) 6.2 % Normal 1.7-12.0 [facility] Comment on above: Performed By: #### C BC #### [facility] [address] [place] [address] Dr. Travis Sanchez NEUT # 5.3 103/ul Normal 1.4-6.5 [facility] Comment on above: Performed By: #### C BC #### [facility] [address] [place] [address] Dr. Travis Sanchez Neutrophils/100 WBC (Bld) 69.2 % Normal 43.0-75.0 [facility] Comment on above: Performed By: #### C BC #### [facility] [address] [place] [address] Dr. Travis Sanchez Platelet mean volume (Bld) [Entitic vol] 11.0 fL Normal 9.5-13.5 [facility] Comment on above: Performed By: #### C BC #### [facility] [address] [place] [address] Dr. Travis Sanchez PLT 314 103/ul Normal 150-450 [facility] Comment on above: Performed By: #### C BC #### [facility] [address] [place] [address] Dr. Travis Sanchez RBC 4.89 106/ul Normal 4.70-6.10 [facility] Comment on above: Performed By: #### C BC #### [facility] [address] [place] [address] Dr. Travis Sanchez WBC 7.6 103/ul Normal 4.0-11.0 [facility] Comment on above: Performed By: #### C BC #### [facility] [address] [place] [address] Dr. Travis Sanchez CULTURE URINEon 04-01-2022 CULTURE URINE Culture Observations : NO GROWTH. Normal [facility] Comment on above: Performed By: #### C VDTBH #### [facility] [address] [place] [address] Dr. Travis Sanchez Covid-19 PCR (CVDTB)on 03-09 SARS-CoV-2 (COVID-19) RNA ECTOR+probe Ql (Unsp spec) Not detected Normal NOT DETECTED [facility] Comment on above: Result Comment: When diagnostic [...] for this test is supported by the Medical Secretary Receptionist of Health and Human Service's declaration that [...] used). Performed By: #### C VDTB #### [facility] [address] [place] [address] Dr. Travis Sanchez DRUG SCREEN RAPID (URINE)on 04-01-2022 AMP Negative Normal NEGATIVE [facility] Comment on above: Performed By: #### C BC #### [facility] [address] [place] [address] Dr. Travis Sanchez BAR Negative Normal NEGATIVE [facility] Comment on above: Performed By: #### C BC #### [facility] [address] [place] [address] Dr. Travis Sanchez BUP Negative Normal NEGATIVE [facility] Comment on above: Performed By: #### C BC #### [facility] [address] [place] [address] Dr. Travis Sanchez BZO Negative Normal NEGATIVE [facility] Comment on above: Performed By: #### C BC #### [facility] [address] [place] [address] Dr. Travis Sanchez JESUS Negative Normal NEGATIVE [facility] Comment on above: Performed By: #### C BC #### [facility] [address] [place] [address] Dr. Travis Sanchez CUT-OFFS SEE BELOW Normal [facility] Comment on above: Result Comment: AMP [...] ng/mL Performed By: #### C BC #### [facility] [address] [place] [address] Dr. Travis Sanchez DRUG CUT HEADER DRUG CLASS TEST SYSTEM CUT-OFF CONCENTRATIONS ARE FOLLOWS: Normal [facility] Comment on above: Performed By: #### C BC #### [facility] [address] [place] [address] Dr. Travis Sanchez mAMP Negative Normal NEGATIVE [facility] Comment on above: Performed By: #### C BC #### [facility] [address] [place] [address] Dr. Travis Sanchez MTD Negative Normal NEGATIVE [facility] Comment on above: Performed By: #### C BC #### [facility] [address] [place] [address] Dr. Travis Sanchez OPI Negative Normal NEGATIVE [facility] Comment on above: Performed By: #### C BC #### [facility] [address] [place] [address] Dr. Travis Sanchez OXY Negative Normal NEGATIVE [facility] Comment on above: Performed By: #### C BC #### [facility] [address] [place] [address] Dr. Travis Sanchez PCP Negative Normal NEGATIVE [facility] Comment on above: Performed By: #### C BC #### [facility] [address] [place] [address] Dr. Travis Sanchez PPX Negative Normal NEGATIVE [facility] Comment on above: Performed By: #### C BC #### [facility] [address] [place] [address] Dr. Travis Sanchez TCA Negative Normal NEGATIVE [facility] Comment on above: Performed By: #### C BC #### [facility] [address] [place] [address] Dr. Travis Sanchez THC Negative Normal NEGATIVE [facility] Comment on above: Performed By: #### C BC #### [facility] [address] [place] [address] Dr. Travis Sanchez ER URINE PROFILEon 3 Bilirubin Ql (U) Negative Normal NEGATIVE [facility] Comment on above: Performed By: #### C BC #### [facility] [address] [place] [address] Dr. Travis Sanchez Clarity (U) CLEAR Normal CLEAR [facility] Comment on above: Performed By: #### C BC #### [facility] [address] [place] [address] Dr. Travis Sanchez Color (U) YELLOW Normal YELLOW [facility] Comment on above: Performed By: #### C BC #### [facility] [address] [place] [address] Dr. Travis Sanchez ERUAHD A micrscopic examination will be performed if indicated. Normal [facility] Comment on above: Performed By: #### C BC #### [facility] [address] [place] [address] Dr. Travis Sanchez Glucose Ql (U) >1000 Abnormal NEGATIVE [facility] Comment on above: Performed By: #### C BC #### [facility] [address] [place] [address] Dr. Travis Sanchez Hemoglobin Ql (U) Negative Normal NEGATIVE [facility] Comment on above: Performed By: #### C BC #### [facility] [address] [place] [address] Dr. Travis Sanchez Ketones Ql (U) TRACE Abnormal NEGATIVE [facility] Comment on above: Performed By: #### C BC #### [facility] [address] [place] [address] Dr. Travis Sanchez LEUKOCYTES Negative Normal NEGATIVE [facility] Comment on above: Performed By: #### C BC #### [facility] [address] [place] [address] Dr. Travis Sanchez Nitrite Ql (U) Negative Normal NEGATIVE [facility] Comment on above: Performed By: #### C BC #### [facility] [address] [place] [address] Dr. Travis Sanchez pH (U) 5.5 [pH] Normal 5-9 [facility] Comment on above: Performed By: #### C BC #### [facility] [address] [place] [address] Dr. Travis Sanchez Protein (U) [Mass/Vol] 100 mg/dL Abnormal NEGAT WILIAN/ TRACE [facility] Comment on above: Performed By: #### C BC #### [facility] [address] [place] [address] Dr. Travis Sanchez SPEC GRAVITY >=1.030 Abnormal 1.005-<=1.0 25 [facility] Comment on above: Performed By: #### C BC #### [facility] [address] [place] [address] Dr. Travis Sanchez UR MICRO IND INDICATED Normal [facility] Comment on above: Performed By: #### C BC #### [facility] [address] [place] [address] Dr. Travis Sanchez Urobilinogen Qn (U) 0.2 {Chintan'U}/dL Normal 0.2 - 1. 0 [facility] Comment on above: Performed By: #### C BC #### [facility] [address] [place] [address] Dr. Travis Sanchez ETHANOL (BLD ALC)on 04-01-19 23 ALC NOTE NOTE: 80 mg/dl is th e legal limit for a blood alcohol level Normal [facility] Comment on above: Performed By: #### E TH #### [facility] [address] [place] [address] Dr. Travis Sanchez Ethanol [Mass/Vol] mg/dL Normal [facility] Comment on above: Performed By: #### E TH #### [facility] [address] [place] [address] Dr. Travis Sanchez PROF 14(COMP METB)on 023 Albumin [Mass/Vol] 3.5 g/dL Normal 3.4-5.0 [facility] Comment on above: Performed By: #### C VDTBH #### [facility] [address] [place] [address] Dr. Travis Sanchez Albumin/Globulin [Mass ratio] 0.9 {ratio} Normal [facility] Comment on above: Performed By: #### C VDTBH #### [facility] [address] [place] [address] Dr. Travis Sanchez ALP [Catalytic activity/Vol] 98 U/L Normal 46-116 [facility] Comment on above: Performed By: #### C VDTBH #### [facility] [address] [place] [address] Dr. Travis Sanchez ALT [Catalytic activity/Vol] 36 U/L Normal 16-63 [facility] Comment on above: Performed By: #### C VDTBH #### [facility] [address] [place] [address] Dr. Travis Sanchez Anion gap [Moles/Vol] 16.8 mmol/L Normal [facility] Comment on above: Performed By: #### C VDTBH #### [facility] [address] [place] [address] Dr. Travis Sanchez AST [Catalytic activity/Vol] 18 U/L Normal 15-37 [facility] Comment on above: Performed By: #### C VDTBH #### [facility] [address] [place] [address] Dr. Travis Sanchez Bilirubin [Mass/Vol] 0.3 mg/dL Normal 0.2-1.0 [facility] Comment on above: Performed By: #### C VDTBH #### [facility] [address] [place] [address] Dr. Travis Sanchez Calcium [Mass/Vol] 9.1 mg/dL Normal 8.5-10.1 [facility] Comment on above: Performed By: #### C VDTBH #### [facility] [address] [address] [address] Travis Sanchez Chloride [Moles/Vol] 101 mmol/L Normal 98-107 [facility] Comment on above: Performed By: #### C VDTBH #### [facility] [address] [address] [address] Travis Sanchez CO2 [Moles/Vol] 22.1 mmol/L Normal 21.0-32.0 [facility] Comment on above: Performed By: #### C VDTBH #### [facility] [address] [address] [address] Travis Sanchez Creatinine [Mass/Vol] 0.81 mg/dL Normal 0.70-1.30 [facility] Comment on above: Performed By: #### C VDTBH #### [facility] [address] [place] [address] Dr. Trvais Sanchez EGFR-AF GHANAIAN >60 Normal >=60 [facility] Comment on above: Performed By: #### C VDTBH #### [facility] [address] [place] [address] Dr. Travis Sanchez EGFR-NON AF GHANAIAN >60 Normal >=60 [facility] Comment on above: Performed By: #### C VDTBH #### [facility] [address] [place] [address] Dr. Travis Sanchez Globulin (S) [Mass/Vol] 3.7 g/dL Normal [facility] Comment on above: Performed By: #### C VDTBH #### [facility] [address] [place] [address] Dr. Travis Sanchez Glucose [Mass/Vol] 277 mg/dL Critically high 74-106 [facility] Comment on above: Performed By: #### C VDTBH #### [facility] [address] [place] [address] Dr. Travis Sanchez Potassium [Moles/Vol] 3.9 mmol/L Normal 3.5-5.1 [facility] Comment on above: Performed By: #### C VDTBH #### [facility] [address] [place] [address] Dr. Travis Sanchez Protein [Mass/Vol] 7.2 g/dL Normal 6.4-8.2 [facility] Comment on above: Performed By: #### C VDTBH #### [facility] [address] [place] [address] Dr. Travis Sanchez Sodium [Moles/Vol] 136 mmol/L Normal 136-145 [facility] Comment on above: Performed By: #### C VDTBH #### [facility] [address] [place] [address] Dr. Travis Sanchez Urea nitrogen [Mass/Vol] 11.0 mg/dL Normal 7.0-18.0 [facility] Comment on above: Performed By: #### C VDTBH #### [facility] [address] [place] [address] Dr. Travis Sanchez Urea nitrogen/Creatinine [Mass ratio] 13.6 mg/mg Normal [facility] Comment on above: Performed By: #### C VDTBH #### [facility] [address] [place] [address] Dr. Travis Sanchez SALICYLATEon 04-01-2022 SALICYLATE <2.8 Normal <=19.9 [facility] Comment on above: Performed By: #### C VDTBH #### [facility] [address] [place] [address] Dr. Travis Sanchez URINE MICROSCOPIC ONLYon BACTERIA SMALL Abnormal NONE SEEN [facility] Comment on above: Performed By: #### C BC #### [facility] [address] [place] [address] Dr. Travis Sanchez Bacteria identified Cx Nom (U) INDICATED Normal [facility] Comment on above: Performed By: #### C BC #### [facility] [address] [place] [address] Dr. Travis Sanchez CAST SEEN Abnormal NONE SEEN [facility] Comment on above: Performed By: #### C BC #### [facility] [address] [place] [address] Dr. Travis Sanchez Crystals LM Nom (Urine sed) NONE SEEN Normal NONE SEEN [facility] Comment on above: Performed By: #### C BC #### [facility] [address] [place] [address] Dr. Travis Sanchez Epithelial cells LM Ql (Urine sed) MODERATE Abnormal NONE SEEN /RARE [facility] Comment on above: Performed By: #### C BC #### [facility] [address] [place] [address] Dr. Travis Sanchez HYALINE CAST RARE Normal [facility] Comment on above: Performed By: #### C BC #### [facility] [address] [place] [address] Dr. Travis Sanchez MUCOUS MODERATE Abnormal NONE SEEN [facility] Comment on above: Performed By: #### C BC #### [facility] [address] [place] [address] Dr. Travis Sanchez RBC 0-2 Normal 0-2 [facility] Comment on above: Performed By: #### C BC #### [facility] [address] [place] [address] Dr. Travis Sanchez WBC 2-5 Abnormal NONE SEEN [facility] Comment on above: Performed By: #### C BC #### [facility] [address] [place] [address] Dr. Travis Sanchez TESTOSTERONE, TOTALon 2022 Testosterone [Mass/Vol] 240 ng/dL Critically low 264-916 [facility] Comment on above: Result Comment: Adul t male reference interval is based on a population of healthy nonobese males (BMI <30) between 19 and 39 years old. mike Prado.al. JCEM 2017,102;3555-3733. PMID: [id number]. Performed By: #### C BC #### [facility] [address] [place] [address] Dr. Travis Sanchez GLYCOHEMOGLOBIN A1Con 2022 ADA RECOMMENDATION SEE BELOW Normal [facility] Comment on above: Result Comment: ADA RECOMMENDED LIMIT 4.0 - 6.0 ADA THERAPEUTIC TARGET < 7.0 ACTION SUGGESTED > 7.0 Performed By: #### C BC #### [facility] [address] [place], [place] [address] Dr. Travis Sanchez Glucose [Mass/Vol] 212 mg/dL Normal [facility] Comment on above: Performed By: #### C BC #### [facility] [address] [place], [place] [address] Dr. Travis Sanchez HbA1c (Bld) [Mass fraction] 9.0 % Critically high 4.5-6.2 [facility] Comment on above: Performed By: #### C BC #### [facility] [address] [place], [place] [address] Dr. Travis Sanchez Provider [facility] Letter [facility] Coding Summary.on 02-19-2022 Coding Summary. Normal [facility] CHEMISTRYOrdered By: SYSTEM SYSTEM on 02-16-2022 Anion gap [Moles/Vol] 16 mmol/L Normal 6 - 16 mEq/L [facility] Remisol Chloride [Moles/Vol] 97 mmol/L Low 101 - 1 11 mmol/L [facility] Remisol CO2 [Moles/Vol] 24 mmol/L Normal 21 - 31 mmol/L [facility] Remisol Potassium [Moles/Vol] 4.2 mmol/L Normal 3.5 - 5.3 mmol/L [facility] Remisol Sodium [Moles/Vol] 133 mmol/L Low 135 - 145 mmol/L [facility] Remisol Lyteson 02-16-2022 Anion gap [Moles/Vol] 16 mmol/L Normal 6-16 [facility] Comment on above: Performed By: #### 2 [id number] ####[facility] [address] [place] [address] Chloride [Moles/Vol] 97 mmol/L Low 101-111 [facility] Comment on above: Performed By: #### 2 [id number] ####[facility] [address] [place] [address] CO2 [Moles/Vol] 24 mmol/L Normal 21-31 [facility] Comment on above: Performed By: #### 2 [id number] ####[facility] [address] [place] [address] Potassium [Moles/Vol] 4.2 mmol/L Normal 3.5-5.3 [facility] Comment on above: Performed By: #### 2 [id number] ####[facility] [address] [place] [address] Sodium [Moles/Vol] 133 mmol/L Low 135-145 [facility] Comment on above: Performed By: #### 2 [id number] ####[facility] [address] [place] [address] Patient Educationon 02-17-20 Patient Education Normal [facility] Urology Office/Clinic Noteon 02-16-2022 Urology Office/Clinic Note Normal [facility] Comment on above: Result Comment: Elec tronically Signed By: Patricio CHAKRABORTY MD\.br\Date and Time Signed: 02/16/22 15:06 EST\.br\Electronically Co-Signed By: Germaine Mccain\.br\Date and Time Co-Signed: 02/16/22 15:05 EST Ambulatory Visit Summaryon 1 Ambulatory Visit Summary Normal [facility] Patient Educationon 12-16-19 Patient Education Normal [facility] Reminderson 12-15-2021 Reminders Normal [facility] Comment on above: Other Comment: in er ror Urology Office/Clinic Noteon 12-15-2021 Urology Office/Clinic Note Normal [facility] Comment on above: Result Comment: Elec tronically Signed By: Patricio CHAKRABORTY MD R\.br\Date and Time Signed: 12/15/21 15:50 EDT\.br\Electronically Co-Signed By: Alannah Ragland MA\.br\Date and Time Co-Signed: 12/15/21 15:45 EDT INSULINon 11-14-2021 Insulin 27.9 uIU/mL Critically high 2.6-24.9 [facility] Comment on above: Performed By: #### S EDR #### [facility] [address] [address] [address] Travis Sanchez CBC AUTO DIFFon 11-13-2021 BASO # 0.0 103/ul Normal 0.0-0.1 [facility] Comment on above: Performed By: #### C BC #### [facility] [address] [address] [address] Travis Sanchez Basophils/100 WBC (Bld) 0.5 % Normal 0.2-2.0 [facility] Comment on above: Performed By: #### C BC #### [facility] [address] [place] [address] Dr. Travis Sanchez EO # 0.1 103/ul Normal 0.0-0.7 [facility] Comment on above: Performed By: #### C BC #### [facility] [address] [place] [address] Dr. Travis Sanchez Eosinophils/100 WBC (Bld) 1.8 % Normal 0.9-7.0 [facility] Comment on above: Performed By: #### C BC #### [facility] [address] [place] [address] Dr. Travis Sanchez Erythrocyte distribution width (RBC) [Ratio] 13.7 % Normal 11.0-15.0 [facility] Comment on above: Performed By: #### C BC #### [facility] [address] [place] [address] Dr. Travis Sanchez Hematocrit (Bld) [Volume fraction] 40.9 % Critically low 42.0-54.0 [facility] Comment on above: Performed By: #### C BC #### [facility] [address] [place] [address] Dr. Travis Sanchez Hemoglobin (Bld) [Mass/Vol] 13.7 g/dL Critically low 14.0-18.0 [facility] Comment on above: Performed By: #### C BC #### [facility] [address] [place] [address] Dr. Travis Sanchez IG # 0.04 10e3/ul Critically high 0.00-0.03 [facility] Comment on above: Performed By: #### C BC #### [facility] [address] [place] [address] Dr. Travis Sanchez IG % 0.7 % Critically high 0.0-0.5 [facility] Comment on above: Performed By: #### C BC #### [facility] [address] [place] [address] Dr. Travis Sanchez LYMPH # 1.6 103/ul Normal 1.2-3.8 [facility] Comment on above: Performed By: #### C BC #### [facility] [address] [place] [address] Dr. Travis Sanchez Lymphocytes/100 WBC (Bld) 25.8 % Normal 20.5-60.0 [facility] Comment on above: Performed By: #### C BC #### [facility] [address] [place] [address] Dr. Travis Sanchez MANUAL DIFF REQ NO Normal [facility] Comment on above: Performed By: #### C BC #### [facility] [address] [place] [address] Dr. Travis Sanchez MCH (RBC) [Entitic mass] 30.4 pg Normal 25.9-34.0 [facility] Comment on above: Performed By: #### C BC #### [facility] [address] [place] [address] Dr. Travis Sanchez MCHC (RBC) [Mass/Vol] 33.5 g/dL Normal 29.9-35.2 [facility] Comment on above: Performed By: #### C BC #### [facility] [address] [place] [address] Dr. Travis Sanchez MCV (RBC) [Entitic vol] 90.9 fL Normal 80.0-94.0 [facility] Comment on above: Performed By: #### C BC #### [facility] [address] [place] [address] Dr. Travis Sanchez MONO # 0.4 103/ul Normal 0.3-0.8 [facility] Comment on above: Performed By: #### C BC #### [facility] [address] [place] [address] Dr. Travis Sanchez Monocytes/100 WBC (Bld) 6.4 % Normal 1.7-12.0 [facility] Comment on above: Performed By: #### C BC #### [facility] [address] [address] [address] Travis Sanchez NEUT # 4.0 103/ul Normal 1.4-6.5 [facility] Comment on above: Performed By: #### C BC #### [facility] [address] [address] [address] Travis Sanchez Neutrophils/100 WBC (Bld) 64.8 % Normal 43.0-75.0 [facility] Comment on above: Performed By: #### C BC #### [facility] [address] [address] [address] Travis Sanchez Platelet mean volume (Bld) [Entitic vol] 10.4 fL Normal 9.5-13.5 [facility] Comment on above: Performed By: #### C BC #### [facility] [address] [address] [address] Travis Sanchez PLT 271 103/ul Normal 150-450 [facility] Comment on above: Performed By: #### C BC #### [facility] [address] [address] [address] Travis Sanchez RBC 4.50 106/ul Critically low 4.70-6.10 [facility] Comment on above: Performed By: #### C BC #### [facility] [address] [address] [address] Travis Sanchez WBC 6.1 103/ul Normal 4.0-11.0 [facility] Comment on above: Performed By: #### C BC #### [facility] [address] [address] [address] Travis Sanchez DIRECT LDLon 11-13-2021 Cholesterol in LDL [Mass/Vol] 124 mg/dL Normal [facility] Comment on above: Performed By: #### P SASC #### [facility] [address] [address] [address] Travis Sanchez DLDL NORMAL SEE BELOW Normal [facility] Comment on above: Result Comment: <100 mg/dl OPTIMAL 100 - 129 mg/dl NEAR OR ABOVE OPTIMAL 130 - 159 mg/dl BORDERLINE HIGH 160 - 189 mg/dl HIGH >190 mg/dl VERY HIGH Performed By: #### P SASC #### [facility] [address] [address] [address] Travis Sanchez GLYCOHEMOGLOBIN A1Con 2021 ADA RECOMMENDATION SEE BELOW Normal [facility] Comment on above: Result Comment: ADA RECOMMENDED LIMIT 4.0 - 6.0 ADA THERAPEUTIC TARGET < 7.0 ACTION SUGGESTED > 7.0 Performed By: #### S EDR #### [facility] [address] [address] [address] Travis Sanchez Glucose [Mass/Vol] 223 mg/dL Normal [facility] Comment on above: Performed By: #### S EDR #### [facility] [address] [place] [address] Dr. Travis Sanchez HbA1c (Bld) [Mass fraction] 9.4 % Critically high 4.5-6.2 [facility] Comment on above: Performed By: #### S EDR #### [facility] [address] [address] [address] Travis Sanchez LIPID PROFILEon 11-13-2021 CHOL-HDL RATIO NORM SEE BELOW Normal [facility] Comment on above: Result Comment: 3.3 - 4.4 LOW RISK 4.4 - 7.1 AVERAGE RISK 7.1 - 11.0 MODERATE RISK >11.0 HIGH RISK Performed By: #### C BC #### [facility] [address] [place] [address] Dr. Travis Sanchez Cholesterol [Mass/Vol] 265 mg/dL Critically high <=200 [facility] Comment on above: Performed By: #### C BC #### [facility] [address] [address] [address] Travis Sanchez Cholesterol in HDL [Mass/Vol] 37 mg/dL Critically low 40-60 [facility] Comment on above: Performed By: #### C BC #### [facility] [address] [address] [address] Travis Sanchez Cholesterol.total/Linette sterol in HDL [Mass ratio] 7.2 {ratio} Normal [facility] Comment on above: Performed By: #### C BC #### [facility] [address] [address] [address] Travis Sanchez HDL NORMAL > or = 60 mg/dl - LO W CARDIOVASCULAR RISK <40 mg/dl - HIGH CARDIOVASCULAR RISK Normal [facility] Comment on above: Performed By: #### C BC #### [facility] [address] [address] [address] Travis Sanchez Triglyceride [Mass/Vol] 604 mg/dL Critically high <=150 [facility] Comment on above: Performed By: #### C BC #### [facility] [address] [address] [address] Travis Sanchez VLDL CALC 120.8 mg/dL Normal [facility] Comment on above: Performed By: #### C BC #### [facility] [address] [place] [address] Dr. Travis Sanchez PROF 14(COMP METB)on 022 Albumin [Mass/Vol] 3.8 g/dL Normal 3.4-5.0 [facility] Comment on above: Performed By: #### P SASC #### [facility] [address] [place] [address] Dr. Travis Sanchez Albumin/Globulin [Mass ratio] 1.0 {ratio} Normal [facility] Comment on above: Performed By: #### P SASC #### [facility] [address] [place] [address] Dr. Travis Sanchez ALP [Catalytic activity/Vol] 103 U/L Normal 46-116 [facility] Comment on above: Performed By: #### P SASC #### [facility] [address] [address] [address] Travis Sanchez ALT [Catalytic activity/Vol] 41 U/L Normal 16-63 [facility] Comment on above: Performed By: #### P SASC #### [facility] [address] [place] [address] Dr. Travis Sanchez Anion gap [Moles/Vol] 14.4 mmol/L Normal [facility] Comment on above: Performed By: #### P SASC #### [facility] [address] [address] [address] Travis Sanchez AST [Catalytic activity/Vol] 17 U/L Normal 15-37 [facility] Comment on above: Performed By: #### P SASC #### [facility] [address] [address] [address] Travis Sanchez Bilirubin [Mass/Vol] 0.3 mg/dL Normal 0.2-1.0 [facility] Comment on above: Performed By: #### P SASC #### [facility] [address] [address] [address] Travis Sanchez Calcium [Mass/Vol] 9.1 mg/dL Normal 8.5-10.1 [facility] Comment on above: Performed By: #### P SASC #### [facility] [address] [address] [address] Travis Sanchez Chloride [Moles/Vol] 99 mmol/L Normal 98-107 [facility] Comment on above: Performed By: #### P SASC #### [facility] [address] [address] [address] Travis Sanchez CO2 [Moles/Vol] 25.7 mmol/L Normal 21.0-32.0 [facility] Comment on above: Performed By: #### P SASC #### [facility] [address] [address] [address] Travis Sanchez Creatinine [Mass/Vol] 0.69 mg/dL Critically low 0.70-1.30 [facility] Comment on above: Performed By: #### P SASC #### [facility] [address] [address] [address] Travis Sanchez EGFR-AF GHANAIAN >60 Normal >=60 [facility] Comment on above: Performed By: #### P SASC #### [facility] [address] [address] [address] Travis Sanchez EGFR-NON AF GHANAIAN >60 Normal >=60 [facility] Comment on above: Performed By: #### P SASC #### [facility] [address] [address] [address] Travis Sanchez Globulin (S) [Mass/Vol] 3.9 g/dL Normal [facility] Comment on above: Performed By: #### P SASC #### [facility] [address] [address] [address] Travis Sanchez Glucose [Mass/Vol] 269 mg/dL Critically high 74-106 [facility] Comment on above: Performed By: #### P SASC #### [facility] [address] [address] [address] Travis Sanchez Potassium [Moles/Vol] 4.1 mmol/L Normal 3.5-5.1 [facility] Comment on above: Performed By: #### P SASC #### [facility] [address] [address] [address] Travis Sanchez Protein [Mass/Vol] 7.7 g/dL Normal 6.4-8.2 [facility] Comment on above: Performed By: #### P SASC #### [facility] [address] [address] [address] Travis Sanchez Sodium [Moles/Vol] 135 mmol/L Critically low 136-145 [facility] Comment on above: Performed By: #### P SASC #### [facility] [address] [address] [address] Travis Sanchez Urea nitrogen [Mass/Vol] 11.0 mg/dL Normal 7.0-18.0 [facility] Comment on above: Performed By: #### P SASC #### [facility] [address] [address] [address] Travis Sanchez Urea nitrogen/Creatinine [Mass ratio] 15.9 mg/mg Normal [facility] Comment on above: Performed By: #### P SASC #### [facility] [address] [address] [address] Travis Sanchez URIC ACID SERUMon 11-13-2021 Urate [Mass/Vol] 5.5 mg/dL Normal 3.5-7.2 [facility] Comment on above: Performed By: #### C #### [facility] [address] [address] [address] Travis Weems 09-23-2021 CNOV Office Visit (UROLMN ) MANDIENOI Reinoso ([id number]) 1990 M T Date Time Provider Department 09/23/21 4:00 PM TAHIR DEJESUS During your visit today, we recorded the following information about you: Tahir Dejesus MD 10/06/2021 8:48 AM Signed PATIENT: Enio Raymond [id number] REFERRING MD: Self 09/23/2021 Chief Complaint Post op History of Present Illness Enio Raymond is a very pleasant 30 year old male who presents for post op check up Had recent vasectomy from [facility] urologist office with severe scrotal pain with [...] Dr. Tahir Dejesus by Goran Nuñez, medical device engineer, on September 23, 2021 I agree with the Chief Complaint, ROS, and Past Histories independently gathered by the clinical system support specialist including scribe and or medical student and or MIGUEL and or resident or fellow and the remaining scribed note accurately describes my personal service to the patient. Tahir Dejesus MD, MS [facility] [place] [facility] Referring Provider: SELF [200] Allergies As of [...] Status:Closed by HERB TEEKERRI on 10/06/21 Normal [facility] US VENOUS DOPPLER R Fernie [...] by: ELIUD IRIZARRY Date: 2021-09-01 13:01 Normal [facility] CONSULTon 08-13-2021 CONSULT HNO ID: [id number] Author: Angel Nelson MD Service: Urology Author Type: Resident Type: Consults Filed: 08/13/2021 4:55 PM Note Text: [facility] UROLOGY CONSULT NOTE Service Date: 08/13/2021 Service Time: 4:55 PM ASSESSMENT AND PLAN: 30 year old male with history of DM2, recent vasectomy presenting from [facility] urologist's office with c/f Golden's gangrene. AFVSS [...] Angel Nelson MD Urology Resident PGY-2 Pager: [phone] For weekend or after hours issues [place] [phone] HPI: Enio Raymond is a 30 year [...] extremity edema LABS: Pending IMAGING: Pending Normal [facility] Glucose Glucometer (dC) [M ass/Vol]Ordered By: Segun Cho on 08-10-2021 Glucose [Mass/Vol] 397 mg/dL [facility] Comment on above: Random Glucose Refer ence Range is dependent on time and content of last meal. Glucose of more than 200 mg/dL in a nonstressed, ambulatory subject supports the diagnosis of Diabetes Mellitus. Glucose Poct Glucometerson 0 08-10-2021 Glucose [Mass/Vol] 397 mg/dL Normal [facility] Comment on above: Result Comment: [facility] Glucose Reference Range is dependent on time and content of last meal. Glucose of more than 200 mg/dL in a nonstressed, ambulatory subject supports the diagnosis of Diabetes Mellitus. PERFORMED BY: [facility] [place] [address] PATHOLOGIST PROGRAM CONTROL ANALYST JOSSELYN ROSEN M.D. Performed By: #### G LULS #### Point of Care testing , US scrotumon 08-10-2021 US scrotum [facility] [address] [place] [id number] Ultrasound Report Signed Patient: Enio Raymond MR#: [id number] : 1990 Acct:[id number] Age/Sex: 30 / M ADM Date: 08/10/21 Loc: ER Room: Type: [facility] Attending Dr: Ordering Provider: Segun Cho [...] Estrella Chung M.D.08/10/2021 7:04 PM Dictation Location: [address] [place] [address] Tech: Mariana Caban Transcribed By: PAVEL 08/10/211903 Dictated By: Estrella Chung MD 08/10/211899 Signed By: 08/10/211903 [facility] [address] [address] Ultrasound Report Signed Patient: Enio Raymond MR#: [id number] : 1990 Acct:[id number] Age/Sex: 30 / M ADM Date: 07/31/21 Loc: ER Room: Type: [facility] ER Attending Dr: Ordering Provider: Oliver [...] Gael Aguilar M.D.08/01/2021 9:01 AM Dictation Location: [place] [address] Tech: [facility] Transcribed By: [facility] 08/01/21900 Dictated By: Gael Aguilar DO 08/01/21 0830 Signed By: 08/01/21 0901 Normal [facility] Urinalysison 08-01-2021 Appearance (U) Clear Normal Clear [facility] Comment on above: Order Comment: Name Collection Type:: Clean-Voided Midstream Performed By: #### U A ####[facility] [id number] [place] [address] [facility] Bilirubin,Urine Negative Normal Negative [facility] Comment on above: Order Comment: Name Collection Type:: Clean-Voided Midstream Performed By: #### U A ####[address] [address] [facility] Color (U) Yellow Normal Yellow [facility] Comment on above: Order Comment: Name Collection Type:: Clean-Voided Midstream Performed By: #### U A ####[address] [address] [facility] Glucose Ql (U) >=1000 High Normal [facility] Comment on above: Order Comment: Name Collection Type:: Clean-Voided Midstream Performed By: #### U A ####[address] [address] [facility] Ketones Ql (U) Trace High Negative [facility] Comment on above: Order Comment: Name Collection Type:: Clean-Voided Midstream Performed By: #### U A ####[address] [address] [facility] Leukocyte esterase Test strip Ql (U) Negative Normal Negative [facility] Comment on above: Order Comment: Name Collection Type:: Clean-Voided Midstream Performed By: #### U A ####[address] [address] [facility] Nitrite,Urine Negative Normal Negative [facility] Comment on above: Order Comment: Name Collection Type:: Clean-Voided Midstream Performed By: #### U A ####[address] [address] [facility] Occult Blood,Urine Negative Normal Negative [facility] Comment on above: Order Comment: Name Collection Type:: Clean-Voided Midstream Result Comment: PERF ORMED BY: [facility] [address] [place] [address] PATHOLOGIST PROGRAM CONTROL ANALYST JOSSELYN ROSEN M.D. Performed By: #### U A ####[address] [address] [facility] pH (U) 6.0 [pH] Normal 5.0-9.0 [facility] Comment on above: Order Comment: Name Collection Type:: Clean-Voided Midstream Performed By: #### U A ####[address] [address] [place] [address] [facility] Protein,Urine Negative Normal Negative [facility] Comment on above: Order Comment: Name Collection Type:: Clean-Voided Midstream Performed By: #### U A ####[address] [place] [address] [facility] Specificy [place],Urine 1.038 High 1.001-1.030 [facility] Comment on above: Order Comment: Name Collection Type:: Clean-Voided Midstream Performed By: #### U A ####[facility] [place] [address] [facility] Urobilinogen,Urine Normal Normal Normal [facility] Comment on above: Order Comment: Name Collection Type:: Clean-Voided Midstream Performed By: #### U A ####[address] [place] [address] [facility] Bilirubin Test strip Ql (U)O rdered By: Oliver Diehl on 07-31-2021 Bilirubin Ql (U) Negative Negative [facility] Color Auto (U)Ordered By: Myles Diehl on 07-31-2021 Color (U) Yellow Yellow [facility] Ketones Auto test strip (U) [Mass/Vol]Ordered By: Oliver Diehl on 07-31-2021 Ketones (U) [Mass/Vol] Trace Negative [facility] Nitrite Test strip Ql (U)Ord ered By: Oliver Diehl on 07-31-2021 Nitrite Ql (U) Negative Negative [facility] Protein Auto test strip (U) [Mass/Vol]Ordered By: Oliver Diehl on 07-31-2021 Protein (U) [Mass/Vol] Negative Negative [facility] Specific gravity Auto test s trip (U) [Rel density]Ordered By: Oliver Diehl on 07-31-2021 Specific gravity (U) [Rel density] 1.038 1.001-1.030 [facility] Urine clarity by refractomet ry automatedOrdered By: Oliver Diehl on 07-31-2021 Clarity Refractometry automated (U) Clear Clear [facility] Urine glucose measurement by automated test strip (mass/volume)Ordered By: Oliver Diehl on 07-31-2021 Glucose Auto test strip (U) [Mass/Vol] >=1000 mg/dL Normal [facility] Urine hemoglobin detection b y automated test stripOrdered By: Oliver Diehl on 07-31-2021 Hemoglobin Auto test strip Ql (U) Negative Negative [facility] Urine leukocyte esterase det ection by automated test stripOrdered By: Oliver Diehl on 07-31-2021 Leukocyte esterase Auto test strip Ql (U) Negative Negative [facility] Urobilinogen Auto test strip (U) [Mass/Vol]Ordered By: Oliver Diehl on 07-31-2021 Urobilinogen (U) [Mass/Vol] Normal mg/dL Normal [facility] pH Auto test strip (U)Ordere d By: Oliver Diehl on 07-31-2021 pH (U) 6.0 [pH] 5.0-9.0 [facility] Grey 07-25-2021 L - -------- Specimen: [id number] Received: 07/25/21 Status: NIRAV Jacinto Num: [id number] Spec Type: Surgical Subm Dr: Patricio Chakraborty MD Tissues: A VAS DEFERENS - sterilization (LT) B VAS DEFERENS - sterilization (RT) Procedures: HE Stain/2, Gross/Micro L2/2 -------- Patient Age/Sex Location Account Attending Physician -------- Enio Raymond 30/M [place] [id number] Patricio Chakraborty MD -------- SPEC NUM: [id number] RECD: 07/25/21 STATUS: NIRAV BENNETT NUM: [id number] RACHEL: 07/25/21- [facility] DR: Patricio Chakraborty MD ENTERED: 07/25/21 [facility] DR: Dino [facility] SPEC TYPE: Surgical DEPT: S ORDERED: [...] Specimen: Received: 07/25/21 Status: NIRAV Bennett Num: [id number] Spec Type: Surgical Subm Dr: Patricio Chakraborty MD Tissues: A VAS DEFERENS - sterilization (LT) B VAS DEFERENS - sterilization (RT) Procedures: JOSH Stain/2, Gross/Micro L2/2 -------- Patient: Enio Raymond [id number] (Continued) -------- Specimen: Received: 07/25/21 (Continued) Signed (signature on file) Josselyn Rosen MD 07/28/21 1753 -------- Specimen: Received: 07/25/21 Status: NIRAV Bennett Num: [id number] Spec Type: Surgical Subm Dr: Patricio Chakraborty MD Tissues: A VAS DEFERENS - sterilization (LT) B VAS DEFERENS - sterilization (RT) Procedures: HE Stain/2, Gross/Micro L2/2 -------- Patient: Enio Raymond [id number] (Continued) -------- Specimen: [id number] Received: 07/25/21 (Continued) Microscopic Description A. One glass slide with H E stained material has been examined. The microscopic findings support the above pathologic diagnosis. B. One glass slide with H E stained material has been examined. The microscopic findings support the above pathologic diagnosis. [id number] -------- -------- Specimen: [id number] Received: 07/25/21 Status: NIRAV Bennett Num: [id number] Spec Type: Surgical Subm Dr: Patricio Chakraborty MD Tissues: A VAS DEFERENS - sterilization (LT) B VAS DEFERENS - sterilization (RT) Procedures: HE Stain/2, Gross/Micro L2/2 -------- Patient: Enio Raymond [id number] (Continued) -------- Signed (signature on file) Josselyn Rosen MD 07/28/21 1710 [facility] COVID Quick Testingon 2020 Result Negative [facility] Other Covid-19 PCRon 01-21-2021 SARS-CoV-2 (COVID-19) RNA ECTOR+probe Ql (Unsp spec) Not detected [facility] Other Covid-19 PCR [facility] Other Vital Signs Date Time Vital Sign Value Performing Clinician Facility 11-23-2022 11:43-0400 Blood Pressure Location Patricio CHAKRABORTY [facility] 11-23-2022 11:43-0400 Diastolic blood pressure 74 mm[Hg] Patricio CHAKRABORTY [facility] 11-23-2022 11:43-0400 Heart rate 80 /min Patricio CHAKRABORTY [facility] 11-23-2022 11:43-0400 Respiratory rate 16 /min Patricio CHAKRABORTY [facility] 11-23-2022 11:43-0400 Systolic blood pressure 120 mm[Hg] Patricio CHAKRABORTY [facility] 07-13-2022 14:00-0400 Body temperature 97.7 [degF] Ronobir YURIDIA [facility] 07-13-2022 14:00-0400 Diastolic blood pressure 73 mm[Hg] Ronobir YURIDIA [facility] 07-13-2022 14:00-0400 Heart rate 82 /min Ronobir [facility]ID[facility] 07-13-2022 14:00-0400 Respiratory rate 17 /min Ronobir [facility]ID[facility] 07-13-2022 14:00-0400 SaO2% (BldA) [Mass fraction] 95 % Ronobir [facility]ID[facility] 07-13-2022 14:00-0400 Systolic blood pressure 115 mm[Hg] Ronobir [facility]URID[facility] 07-13-2022 12:53-0400 Hourly Rounding Ronobir YURIDIA [facility] 07-13-2022 12:53-0400 Promise to Return Ronobir YURIDIA [facility] 07-13-2022 11:00-0400 gluc 292 mg/dL Ronobir [facility]ID[facility] 07-13-2022 11:00-0400 Hourly [address]ing Ronobir [facility]ID[facility] 07-13-2022 11:00-0400 Promise to Return Ronobir [facility]ID[facility] 07-13-2022 10:00-0400 Hourly [address] Ronobir [facility] 07-13-2022 10:00-0400 Promise to Return Ronobir [facility] 07-13-2022 09:29-0400 Diastolic blood pressure 70 mm[Hg] Ronobir [facility]ID[facility] 07-13-2022 09:29-0400 Systolic blood pressure 108 mm[Hg] Ronobir [facility]ID[facility] 07-13-2022 08:00-0400 Heart rate 77 /min Ronobir [facility] 07-13-2022 08:00-0400 Mean blood pressure 83 mm[Hg] Ronobir [facility]ID[facility] 07-13-2022 08:00-0400 Respiratory rate 18 /min Ronobir [facility] 07-13-2022 08:00-0400 SaO2% (BldA) [Mass fraction] 96 % Ronobir [facility]ID[facility] 07-13-2022 07:00-0400 gluc 238 mg/dL Ronobir [facility] 07-12-2022 20:24-0400 Heart rate 85 /min Ronobir [facility] 07-12-2022 20:23-0400 Mean blood pressure 89 mm[Hg] Ronobir [facility]ID[facility] 07-12-2022 20:23-0400 Body temperature 97.88 [degF] Ronobir [facility]ID[facility] 07-12-2022 17:00-0400 Mean blood pressure 88 mm[Hg] Ronobir [facility]ID[facility] 07-12-2022 17:00-0400 Body temperature 97.52 [degF] Ronobir [facility]ID[facility] 07-12-2022 16:20-0400 Mean blood pressure 93 mm[Hg] Ronobir [facility]ID[facility] 07-12-2022 12:38-0400 Respiratory rate 16 /min Ronobir [facility] 07-12-2022 00:44-0400 Heart rate 105 /min Ronobir [facility] 07-12-2022 00:00-0400 Mean blood pressure 97 mm[Hg] Ronobir [facility]ID[facility] 07-11-2022 23:00-0400 Mean blood pressure 82 mm[Hg] Ronobir [facility]ID[facility] 07-11-2022 20:13-0400 Heart rate 119 /min Ronobir [facility] 07-11-2022 20:10-0400 gluc 317 mg/dL Ronobir [facility] 07-11-2022 20:10-[address] [facility] 06-11-2022 08:45-0400 Blood Pressure Location MARIANA BRIGGS [facility] 06-11-2022 08:45-0400 Diastolic blood pressure 82 mm[Hg] MARIANA BRIGGS [facility] 06-11-2022 08:45-0400 Heart rate 88 /min MARIANA BRIGGS [facility] 06-11-2022 08:45-0400 Systolic blood pressure 132 mm[Hg] MARIANA BRIGGS [facility] 04-04-2022 07:30-0500 Body temperature 97.4 [degF] PHYSICIAN NO [facility] 04-04-2022 07:30-0500 Diastolic blood pressure 111 mm[Hg] PHYSICIAN NO [facility] 04-04-2022 07:30-0500 Heart rate 100 /min PHYSICIAN NO [facility] 04-04-2022 07:30-0500 SaO2% (BldA) [Mass fraction] 97 % PHYSICIAN NO [facility] 04-04-2022 07:30-0500 Systolic blood pressure 175 mm[Hg] PHYSICIAN NO [facility] 04-03-2022 20:25-0500 Respiratory rate 16 /min PHYSICIAN NO [facility] 04-02-2022 16:30-0500 Body height 193.04 cm PHYSICIAN NO [facility] 04-01-2022 19:34-0500 Body weight 184.61 kg PHYSICIAN NO [facility] 12-15-2021 14:10-0400 Blood Pressure Location Patricio CHAKRABORTY [facility] 12-15-2021 14:10-0400 Diastolic blood pressure 87 mm[Hg] Patricio CHAKRABORTY [facility] 12-15-2021 14:10-0400 Heart rate 75 /min Patricio CHAKRABORTY [facility] 12-15-2021 14:10-0400 Respiratory rate 16 /min Patricio CHAKRABORTY [facility] 12-15-2021 14:10-0400 Systolic blood pressure 137 mm[Hg] Patricio CHAKRABORTY [facility] 10-06-2021 11:21-0400 Blood Pressure Location Patricio CHAKRABORTY [facility] 10-06-2021 11:21-0400 Diastolic blood pressure 81 mm[Hg] Patricio CHAKRABORTY [facility] 10-06-2021 11:21-0400 Heart rate 104 /min Patricio CHAKRABORTY [facility] 10-06-2021 11:21-0400 Respiratory rate 16 /min Patricio CHAKRABORTY [facility] 10-06-2021 11:21-0400 Systolic blood pressure 125 mm[Hg] Patricio CHAKRABORTY [facility] 08-10-2021 17:39-0400 Body height 190.5 cm Jackelin Hale Work Phone: [facility] 08-10-2021 17:39-0400 Body mass index (BMI) [Ratio] 51 kg/m2 Jackelin Aichholz Work Phone: [facility] 08-10-2021 17:39-0400 Body temperature 98.5 [degF] Jackelin Aichholz Work Phone: [facility] 08-10-2021 17:39-0400 Body weight 185 kg Jackelin Aichholz Work Phone: [facility] 08-10-2021 17:39-0400 Diastolic blood pressure 81 mm[Hg] Jackelin Aichholz Work Phone: [facility] 08-10-2021 17:39-0400 Heart rate 122 /min Jackelin Aichholz Work Phone: [facility] 08-10-2021 17:39-0400 Respiratory rate 23 /min Jackelin Aichholz Work Phone: [facility] 08-10-2021 17:39-0400 SaO2% (BldA) [Mass fraction] 96 % Jackelin Aichholz Work Phone: [facility] 08-10-2021 17:39-0400 Systolic blood pressure 134 mm[Hg] Jackelin Aichholz Work Phone: [facility] 07-31-2021 22:13-0400 Body temperature 98.5 [degF] Jackelin Aichholz Work Phone: [facility] 07-31-2021 22:13-0400 Diastolic blood pressure 109 mm[Hg] Jackelin Aichholz Work Phone: [facility] 07-31-2021 22:13-0400 Heart rate 115 /min Jackelin Aichholz Work Phone: [facility] 07-31-2021 22:13-0400 Respiratory rate 22 /min Jackelin Aichholz Work Phone: [facility] 07-31-2021 22:13-0400 SaO2% (BldA) [Mass fraction] 95 % Jackelin Aichholz Work Phone: [facility] 07-31-2021 22:13-0400 Systolic blood pressure 177 mm[Hg] Jackelin Darlynholz Work Phone: [facility] 07-31-2021 22:12-0400 Body height 190.5 cm Jackelin Warrenhholz Work Phone: [facility] 07-31-2021 22:12-0400 Body mass index (BMI) [Ratio] 51.7 kg/m2 Jackelinkemar Kelleyhholz Work Phone: [facility] 07-31-2021 22:12-0400 Body weight 188 kg Jackelin Santizoholz Work Phone: [facility] 03-24-2021 12:30-0500 Body height 190.5 cm Shruthi Analilia Other [facility] Other 03-24-2021 12:30-0500 Body temperature 96 [degF] Shruthi Analilia Other [facility] Other 03-24-2021 12:30-0500 SaO2% (BldA) [Mass fraction] 98 % Shruthi Analilia Other [facility] Other 01-21-2021 11:15-0500 Body height 190.5 cm Bailey Ginty Other [facility] Other 01-21-2021 11:15-0500 Body mass index (BMI) [Ratio] 49.99 kg/m2 Bailey Ginty Other [facility] Other 01-21-2021 11:15-0500 Body temperature 98.1 [degF] Bailey Ginty Other [facility] Other 01-21-2021 11:15-0500 Body weight 181.44 kg Bailey Guilherme Other [facility] Other 01-21-2021 11:15-0500 SaO2% (BldA) [Mass fraction] 94 % Bailey Vanegas Other [facility] Other Encounters Encounter Date Encounter Type Care Provider Facility Start: 03-29-2023 ambulatory Patricio CHAKRABORTY Facili ty:[facility] Start: 03-29-2023 End: 03-29-2023 Patient encounter procedure Patricio CHAKRABORTY [facility] Start: 11-23-2022 End: 11-24-2022 ambulatory Patricio CHAKRABORTY Facility:[facility] Start: 11-23-2022 End: 11-23-2022 Patient encounter procedure Patricio CHAKRABORTY [facility] [employer] Start: 08-17-2022 End: 08-18-2022 ambulatory Patricio CHAKRABORTY Facility:[facility] Start: 08-04-2022 ambulatory SHRUTHI DÍAZ Facility: Start: 07-14-2022 ambulatory SHRUTHI DÍAZ Facility: Start: 07-11-2022 End: 07-13-2022 ambulatory Wilian SHI [facility] Start: 07-11-2022 End: 07-13-[address] [facility] Start: 07-07-2022 End: 07-07-2022 ambulatory SHRUTHI [...] procedure MARIANA E CHESTER [facility] Start: 05-23-2022 End: 05-24-2022 ambulatory NOLAN FRANSISCO Facility:[facility] Start: 05-04-2022 ambulatory SHRUTHI DÍAZ Facility: [facility] Start: 04-01-2022 End: 04-04-2022 Evaluation and management of inpatient Dell Kim Facility:[facility] Start: 04-01-2022 End: 04-04-2022 Evaluation and management of inpatient PHYSICIAN MARC [facility] [place] [address] Work Phone: Start: 04-01-2022 End: 04-01-2022 ambulatory LUANN SEYMOUR Facility:[facility]1 Start: 03-17-2022 End: 03-18-[address] GERTRUDIS PINA . Facility:[facility]1 Start: 02-16-2022 End: 02-17-2022 ambulatory Patricio CHAKRABORTY [facility] Start: 02-16-2022 End: 02-16-2022 Lab Drop off Patricio CHAKRABORTY [facility] Start: 02-16-2022 End: 02-17-2022 ambulatory Patricio CHAKRABORTY Facility: [place] Start: 02-16-2022 End: 02-16-2022 Patient encounter procedure Patricio CHAKRABORTY [facility] [place] Start: 01-06-2022 End: 02-04-2022 ambulatory SHAIKH Patience MOSER Facility:[facility]1 Start: 12-15-2021 End: 10-11-2022 ambulatory Patricio CHAKRABORTY Facility:[facility] [place] Start: 12-15-2021 End: 12-15-2021 Patient encounter procedure Patricio Vidales CHAKRABORTY [facility] Start: 12-07-2021 End: 01-05-2022 ambulatory SHRUTHI [...] with patient Viktor Gilbert MD Work Phone: [facility] Start: 10-09-2021 ambulatory PAINTER SPRING JACKELIN GEOFFREY Facil ity:H1 Start: 10-06-2021 End: 10-06-2021 Patient encounter procedure Patricio Vidales CHAKRABORTY [facility] Start: 10-06-2021 End: 11-05-2021 ambulatory Patience SHANTI Facility:[facility] Start: 09-23-2021 End: 09-23-2021 Patient encounter procedure Tahir Dejesus MD Work Phone: Urology Comment on above: Vasectomy status (Pr imary Dx) Start: 09-23-2021 End: 09-24-2021 ambulatory Tahir Dejesus MD Work Phone: Urology Start: 09-10-2021 Telephone encounter Alana [facility] & Comment on above: Returning Patient's Call Start: 09-05-2021 End: 10-03-2021 ambulatory PAINTER SPRING JACKELIN WARRENPatienceADALI Facility:[facility]1 Start: 09-02-2021 End: 09-05-2021 ambulatory SHAIKH Patience MOSER Facility:[facility] Start: 09-01-2021 End: 09-02-2021 ambulatory PAINTER SPRING JACKELIN HALE Facility:[facility]1 Start: 08-13-2021 End: 08-13-2021 Patient encounter procedure Patricio Sobeida PALMER [facility] Start: 08-10-2021 End: 08-10-2021 Emergency department patient visit PHYSICIAN NO FAMILY Facility:[facility] Start: 08-10-2021 End: 08-10-2021 Emergency department patient visit Jackelin Geoffrey Work Phone: [facility] Start: 08-01-2021 End: 08-01-2021 Emergency department patient visit PHYSICIAN NO FAMILY Facility:[facility] Start: 07-31-2021 End: 07-31-2021 Emergency department patient visit Jackelin Warrenpatienceadali Work Phone: [facility] Start: 07-25-2021 End: 07-25-2021 ambulatory Patricio Chakraborty Facility:[facility] Start: 07-25-2021 End: 07-25-2021 Departed Referred Jackelin Geoffrey Work Phone: [facility] [place] Start: 03-24-2021 End: 03-24-2021 ambulatory Shruthi Billingsley Other [employer] Other Start: 03-24-2021 Office outpatient vi sit 15 minutes Shruthi Billingsley [facility] Start: 01-23-2021 End: 01-23-2021 ambulatory Bailey Ginty Other [employer] Other Start: 01-23-2021 Telephone encounter Bailey Ginty [facility] Start: 01-21-2021 End: 01-21-2021 ambulatory Bailey Ginty Other [facility] [employer] Other Start: 01-21-2021 Office outpatient vi sit 15 minutes Bailey Vanegas [facility] Procedures Date Procedure Procedure Detail Performing Clinician Start: 11-13-2021 PSA screening NOE HALE Comment on above: Performed By: #### [facility] #### [facility] [address] [place] [address] Dr. Travis Sanchez Start: 08-13-2021 H/O: vasectomy [...] Date Care Activity Detail Author Start: 04-04-2022 [facility] Start: 04-01-2022 Referral to Environmental Health And Safety Manager [facility] Start: 04-01-2022 Hospital admission [facility] Start: 11-06-2021 Influenza vaccination INFLUENZA (#1) [facility] Start: 07-31-2021 Echography of scrotu m and contents US scrotum [facility] Start: 12-14-2007 HEPATITIS B (1 of 3 - Risk 3-dose series) HEPATITIS B (1 of 3 - Risk 3-dose series) [facility] Start: 12-14-2007 Urine microalbumin profile DTAP,TDAP,TD (1 - Tdap) [facility] Start: 2006 ANNUAL PCP TEAM INSPECTOR [employer] JULIÁN DISEASE VISIT ANNUAL PCP TEAM CHRONIC DISEASE VISIT [facility] Start: 2006 Hepatitis B surface antibody level LDL CHOLESTEROL [facility] Start: 2006 HEPATITIS C SCREENING HEPATITIS C SC REENING [facility] Start: 2006 HIV SCREENING HIV SCREENING [facility] Start: 1998 3 comp foot exam completed DIABETIC FOOT EXAM [facility] Start: 1998 Hepatitis B screening URINE AL BUMIN:CREATININE RATIO [facility] Start: 1998 Hepatitis C antibody , confirmatory test DILATED RETINAL EXAM [facility] Start: 1994 PNEUMOCOCCAL (1 - PCV) PNEUMOCOCCAL (1 - PCV) [facility] Start: 1993 Hemoglobin A1c/Hemoglobin.total in Blood HBA1C [facility] Start: 06-13-1989 COVID-19 VACCINE (#1) COVID-19 VACCI NE (#1) [facility] Start: 1988 HEPATITIS B (1 of 3 - 3-dose series) HEPATITIS B (1 of 3 - 3-dose series) [facility] Patient Education [facility] Work Phone: Patient referral [facility] Work Phone: URINALYSIS, REFLEX MICROSCOPIC URINALYSIS, REFLEX MICROSCOPIC Lab Routine Screening for genitourinary condition Ordered: 09/23/2021 [facility] Work Phone: Comment on above: Ordered: 09/23/2021 [facility] Immunizations Immunization Date Immunization Notes Care Provider Salima eason 03-16-2006 tetanus toxoid, redu sindy diphtheria toxoid, and acellular pertussis vaccine, adsorbed MARIANA CHESTER [facility] 07-19-2001 measles, mumps and rubella virus vaccine MARIANA CHESTER [facility] 10-28-1994 DTaP, unspecified formulation MARIANA CHESTER [facility] 06-24-1990 Hib, unspecified formulation MARIANA CHESTER [facility] 03-18-1990 Hib, unspecified formulation MARIANA BRIGGS [facility] 03-18-1990 measles, mumps and rubella virus vaccine MARIANA BRIGGS [facility] Payers Date Payer Category Payer Medicaid [place] [employer] [employer] [id number] 2019-Present [phone] [address] [place] [address] Medicaid [id number] 2019 Medicaid [place] [id number] 2019-Present [phone] [address] [place] [address] Medicaid [id number] 1988 Unknown [id number] 2.16.840.1.487506.3.579.2.5 93 1988 Unknown [id number] 2.16.840.1.179826.3.579.2.5 93 1988 Unknown [id number] 2.16.840.1.231673.3.579.2.5 93 1988 Unknown [id number] 2.16.840.1.792515.3.579.2.5 93 1988 Unknown [id number] 2.16.840.1.744728.3.579.2.5 93 1988 Unknown [id number] 2.16.840.1.071184.3.579.2.5 93 1988 Unknown [id number] 2.16.840.1.521333.3.579.2.5 93 1988 Unknown [id number] 2.16.840.1.496036.3.579.2.5 93 1988 Unknown [id number] 2.16.840.1.852712.3.579.2.5 93 1988 Unknown [id number] 2.16.840.1.856151.3.579.2.5 93 1988 Unknown [id number] 2.16.840.1.360819.3.579.2.5 93 1988 Unknown [id number] 2.16.840.1.242057.3.579.2.5 93 1988 Unknown [id number] 2.16.840.1.455953.3.579.2.5 93 1988 Unknown [id number] 2.16.840.1.148937.3.579.2.5 93 1988 Unknown [id number] 2.16.840.1.211724.3.579.2.5 93 1988 Unknown [id number] 2.16.840.1.980109.3.579.2.5 93 1988 Unknown [id number] 2.16.840.1.389166.3.579.2.5 93 1988 Unknown [id number] 2.16.840.1.973166.3.579.2.5 93 1988 Unknown [id number] 2.16.840.1.854875.3.579.2.5 93 1988 Unknown [id number] 2.16.840.1.486646.3.579.2.5 93 1988 Unknown [id number] 2.16.840.1.360813.3.579.2.5 93 1988 Unknown [id number] 2.16.840.1.391253.3.579.2.7 27 1988 Unknown [id number] 2.16.840.1.636426.3.579.2.7 27 1988 Unknown [id number] 2.16.840.1.559196.3.579.2.7 27 1988 Unknown [id number] 2.16.840.1.879170.3.579.2.7 27 1988 Unknown [id number] 2.16.840.1.763714.3.579.2.7 27 1988 Unknown [id number] 2.16.840.1.894246.3.579.2.7 27 1988 Unknown [id number] 2.16.840.1.290033.3.579.2.7 27 1988 Unknown [id number] 2.16.840.1.310099.3.579.2.7 27 1959 Medicaid [id number] 1959 Self-pay [id number] Unknown [place] [id number] Unknown [id number] 2.16.840.1.159757.19 Unknown [id number] 2.16.840.1.032178.3.579.2.5 31 Unknown [id number] 2.16.840.1.747635.3.579.2.5 31 Unknown [id number] 2.16.840.1.949248.3.579.2.5 31 Unknown [id number] 2.16.840.1.346255.3.579.2.5 31 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 Industrial [place] [facility] [id number] Social History Date Type Detail Facility Start: 10-06-2020 [facility] Start: 10-07-2003 End: 10-06-2020 History of tobacco use Ionia Poken Other Start: 1990 Sex Assigned At Male F [facility] Start: 06-09-2021 End: 02-16-2022 Tobacco smoking status Light tobacco smoker (finding) [facility] Tobacco smoking status Smokeless tobacco user within last 30 days [facility] Start: 07-31-2021 End: 04-02-2022 Tobacco smoking status NHIS Smoker (finding) [facility] Start: 08-13-2021 [facility] History of tobacco use Cigarette Smoker C [facility] Start: 08-13-2021 Cigarettes smoked current (pack per day) - Reported 0.5 [facility] Start: 08-18-2021 End: 10-30-2021 Alcohol intake Lifetime non-drinker (finding) [facility] Start: 08-13-2021 History SDOH Alcohol Frequency [address] [facility] Start: 1990 Sex Assigned At Not on file C [facility] Start: 08-18-2021 End: 09-23-2021 Exposure to SARS-CoV-2 (event) Not sure [facility] Start: 10-07-2021 End: 10-17-2021 Exposure to SARS-CoV-2 (event) Unable to assess [facility] Start: 11-23-2022 Tobacco smoking status Never s moked tobacco (finding) [facility] Goals Date Patient Goal Desired Activity /State Functional Status Date Assessment Result Facility 11-23-2022 Functional Status N/A [facility] 07-12-2022 Functional Status No [facility] 07-11-2022 Functional Status [facility] 06-11-2022 Functional Status N/A [facility] 04-04-2022 Functional status Patient at Baseline [facility] Work Phone: 02-16-2022 Functional Status N/A [facility] 12-15-2021 Functional Status N/A [facility] 10-06-2021 Functional Status N/A [facility] Mental Status Date Assessment Result Facility 04-04-2022 Cognitive function Cognitive Sta tus Patient at Baseline [facility] Work Phone: Clinical Notes 01-21-2021 to [...] therapy. Follow these instructions at home: Take bhfe-xyp-vepdcpe and prescription medicines only as told by [...] provider. Document Revised: 10/24/2020 Document Reviewed: 10/24/2020 [employer] Patient Education 2022 [employer]. 11/23/2022 12:46:35 Overactive Bladder, Adult Overactive Bladder, [...] your health care provider. General instructions Take qobg-ryw-vwbydvh and prescription medicines only as told by [...] provider. Document Revised: 11/11/2020 Document Reviewed: 11/11/2020 [employer] Patient Education 2022 Velteo. 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 Troponin 3 Hr. Troponin 6 Hr. Troponin 9 Hr. UA With Cult Reflex Urine Culture Future Appointments Appointment Date:08/17/2022 10:30:00 AM Scheduled Provider:Patricio CHAKRABORTY MD Location:[facility] Appointment Type:URO Office Visit Future Scheduled Tests Laboratory* Semen Analysis Post Vasectomy 10/06/21 * Semen Analysis Post Vasectomy 10/06/21 [facility]05-08-20[facility]Fisher [facility]Comment on above:Result Comment: Electronically Signed By: ERNALDO TORREZ, Parvin\.br\Date and Time Signed: 07/13/22 10:19 [id number] Hospital Discharge instructions Patient Education 07/13/2022 10:17:27 Hypotension, Fdhz-ou-Xmxe Hypotension As your heart beats, it forces [...] up quickly after you eat. Medicines Take ysac-ebq-afqyaie and prescription medicines only as told by [...] provider. Document Revised: 10/13/2021 Document Reviewed: 10/13/2021 [employer] Patient Education 2022 [employer]teo. 07/13/2022 10:17:23 Urinary Tract Infection, Adult Urinary [...] Treatment for this condition includes: Antibiotic medicine. Tyfr-vxz-kvbzdmi medicines to treat discomfort. Drinking enough water [...] Follow these instructions at home: Medicines Take jsgn-rnq-pwplpou and prescription medicines only as told by [...] provider. Document Revised: 10/04/2020 Document Reviewed: 10/04/2020 [employer] Patient Education 2022 Velteo. Follow Up Care 07/11/2022 20:06:03 With:SHRUTHI DÍAZ Address: [address] [place] [address]- [phone] Business (1) When:07/17/2022 15:15:00 Comments:Call for followup appointment [facility]05-07-2023 [facility]wood Medical CenterComment on above:Result Comment: Electronically Signed By: Wilian SHI DO\Date and Time Signed: 07/12/22 03:16 [id number] NoteCONSULTATION CONSULTATION DATE: 06/25/2022 TO: Shruthi Díaz [...] I have given him 10 pills of [place] to trial and to have available for [...] our patients to inform us about any ptys-noe-kxvyhpw medications or herbal remedies/nutritional supplements/alternative remedies. 2. [...] treatment options with their primary care provider.[id number] Hospital Discharge instructions Patient Education 06/11/2022 08:51:48 [...] fried and sweet foods. General instructions Take lbtt-guo-awaerdo and prescription medicines only as told by [...] 12/19/2009 Document Revised: 06/15/2019 Document Reviewed: 03/10/2018 [employer] Patient Education 2020 Velteo. Follow Up Care 06/04/2022 15:50:17 With:MARIANA BRIGGS PA-C, URL Address: [address] [facility] 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 Patient was continued on his home [...] signed by Dell Kim MD> 04/04/22 1132 [facility] Work Phone: 1(647) 456-666601-27-2023 Progress note Author Dell Kim [facility] April 03, 2022 1:47pm Note Date/Time April 03, 2022 1 :47pm [facility] [address] [place] [address] Psychiatry Progress Note Signed Patient: Enio Raymond MR#: [id number] : 1990 Acct:[id number] Age/Sex: 31 / M Adm Date: 3 Loc: Room: [address] [place] [address] Type : ADM IN Attending Dr: Dell [...] <Electronically signed by Dell Kim MD> 04/03/227 [facility] Work Phone: 1(182) 441-836001-26-2023 History and physical note Author Dell Kim [facility] April 02, 2022 1:07pm Note Date/Time April 02, 2022 1 :03pm [facility] [address] [place] [address] Psychiatry H&P Signed Patient: Enio Raymond MR#: [id number] : 1990 Acct:[id number] Age/Sex: 31 / M Adm Date: 3 Loc: Room: [address] [place] [address] Type: ADM IN Attending Dr: Dell Kim [...] issues, reported sobriety Living: With family 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 General instructions Take ntdh-uwn-aahqvhh and prescription medicines only as told by [...] 12/19/2009 Document Revised: 06/15/2019 Document Reviewed: 03/10/2018 [employer] Patient Education 2020 Velteo. Follow Up Care 12/15/2021 15:51:03 With:PALMER TORREZ, Patricio Vidales, URL Address: [facility] [address] , [place] [address]- When: Unknown [facility] 10-10-2022 Hospital Discharge instructions Patient Education [...] nerve stimulation). For women, using a medical affairs director to prevent urine leaks. This is a [...] right after experiencing incontinence. General instructions Take wzqo-cgg-oxxexxy and prescription medicines only as told by [...] 04/01/2005 Document Revised: 03/04/2018 Document Reviewed: 06/03/2017 [employer] Patient Education 2020 Velteo. Follow Up Care 10/06/2021 12:21:17 With:PALMER TORREZ, Patricio Vidales, URL Address: [facility] [address] [place] [address] [phone] When:02/23/2022 [facility] 08-25-2022 NoteHNO ID: [id number] Author: Viktor Gilbert MD Service: ? Author [...] Spent: 21-30 minutes Viktor Gilbert MD, MS, [facility] Ashley Joyce Department of Cardiovascular Medicine [address], [place] [address] Appointments: (Cardiology); (Vascular Medicine) This note was dictated using a voice recognition software. Please excuse any inadvertent typographical/grammatical/syntax errors that may have escaped the final proofread. Please don't hesitate to contact my office for any clarification.[facility]08-25-2022 History of Present illness Narrative* [...] Spent: 21-30 minutes Viktor Gilbert MD, MS, [facility] Ashley Joyce Department of Cardiovascular Medicine [address], [place] [address] Appointments: (Cardiology); (Vascular Medicine) This note was dictated using a voice recognition software. Please excuse any inadvertent typographical/grammatical/syntax errors that may have escaped the final proofread. Please don't hesitate to contact my office for any clarification. documented in [facility] Hospital Discharge instructions Patient Education 10/06/2021 12:05:20 [...] help you get to a healthyweight. Take ilaa-qsh-wteyypv and prescription medicines only as told by [...] 04/14/2006 Document Revised: 10/10/2018 Document Reviewed: 10/10/2018 [employer] Patient Education 2020 Velteo. Follow Up Care 10/01/2021 14:34:21 With:PALMER TORREZ, Patricio Vidales, URL Address: [facility] [address], [place] [phone] When:Within 2 Month(s) [facility] 07-19-2022 NoteHNO ID: [id number] Author: Tahir Dejesus MD Service: ? Author Type: Physician Type: Progress Notes Filed: 10/06/2021 8:48 AM Note Text: PATIENT: Enio Raymond [id number] REFERRING MD: Harsh 09/23/2021 Chief Complaint Post op History of Present Illness Enio Raymond is a very pleasant 30 year old male who presents for post op check up Had recent vasectomy from [facility] urologist office with severe scrotal pain with [...] Past Histories independently gathered by the clinical system support specialist including scribe and or medical student and or MIGUEL and or resident or fellow and the remaining scribed note accurately describes my personal service to the patient. Tahir Dejesus MD, MS [facility] [place] [facility]07-19-2022 History of Present illness Narrative* Tahir Dejesus MD - 09/23/2021 4:00 PM EDT PATIENT: Enio Raymond [id number] REFERRING MD: Self 09/23/2021 Chief Complaint Post op History of Present Illness Enio aRymond is a very pleasant 30 year old male who presents for post op check up Had recent vasectomy from [facility] urologist office with severe scrotal pain with [...] Past Histories independently gathered by the clinical system support specialist including scribe and or medical student and or MIGUEL and or resident or fellow and the remaining scribed note accurately describes my personal service to the patient. Tahir Dejesus MD, MS [facility] [place] [facility] documented in this encounterSt. [facility]20[facility] NotePatient Outreach (UROLMN) ENIO RAYMOND ([id number]) 1990 M T Date Time Provider Department 09/23/21 TAHIR DEJESUS During your visit today, we recorded the following information about you: Allergies As of Date: 09/23/2021 (No Known Allergies) Date Reviewed: 09/23/2021 Reviewed by: Rell Gallegos MA - Fully Assessed Visit Diagnosis:Screening for genitourinary condition [Z13.89] Order(s):URINALYSIS, REFLEX MICROSCOPIC [[id number]] Order #: [id number]. #:[id number] Prescriptions as of 09/26/2021 - warfarin (COUMADIN) [...] 08/27/2021 Encounter Status:Closed by KATALINA BILLINGS on 09/26/21[facility] 09-10-2021 Miscellaneous Notes* Telephone Encounter [...] answered. Alana Castle RN documented in this encounterSt. [facility] History of Past illness Narrative* Problem Noted [...] of this encounter (statuses as of 09/10/2021) 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 S/p 750cc albumin with good [...] of this encounter (statuses as of 09/26/2021) 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 S/p 750cc albumin with good [...] of this encounter (statuses as of 10/06/2021) 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 S/p 750cc albumin with good [...] of this encounter (statuses as of 10/30/2021) [facility] Hospital Discharge instructions Patient Education 08/13/2021 12:24:12 [...] an athletic support cup for comfort. Take [id number] and prescription medicines only as told by [...] 03/27/2011 Document Revised: 02/04/2018 Document Reviewed: 05/10/2017 [employer] Patient Education 2020 [employer]. Follow Up Care 08/12/2021 16:38:44 With:PALMER TORREZ, Patricio Vidales, URL Address: [facility] [address], [place] [address]- When: Unknown [facility] 01-17-2022 Evaluation note* Encounter Date Diagnosis Assessment [...] Patient care instructions given in writting by [facility] Care At Home document. [employer] Other 11-16-2021 Evaluation note* Encounter Date Diagnosis [...] Patient care instructions given in writting by [facility] Care At Home document [employer] Other Evaluation + Plan note No data available for this section [facility] [place] Evaluation + Plan note Future Appointments Appointment Date:12/15/2021 01:15:00 PM Scheduled Provider:Patricio CHAKRABORTY MD Location:[facility] Appointment Type:URO Office Visit Diagnostic Tests Pending * Electrolyte Panel 10/06/21 Future Scheduled Tests Laboratory* Semen Analysis Post Vasectomy 10/06/21 * Semen Analysis Post Vasectomy 10/06/21 [facility] evaluation + Plan note Future Appointments Appointment Date:02/16/2022 01:15:00 PM Scheduled Provider:Patricio CHAKRABORTY MD Location:[facility] Appointment Type:URO Office Visit Diagnostic Tests Pending * Electrolyte Panel 12/15/21 Future Scheduled Tests Laboratory* Semen Analysis Post Vasectomy 10/06/21 * Semen Analysis Post Vasectomy 10/06/21 [facility] evaluation + Plan note Future Appointments Appointment Date:08/17/2022 10:30:00 AM Scheduled Provider:Patricio CHAKRABORTY MD Location:[facility] Appointment Type:URO Office Visit Future Scheduled Tests Laboratory* Semen Analysis Post Vasectomy 10/06/21 * Semen Analysis Post Vasectomy 10/06/21 [facility] evaluation + Plan note Future Appointments Appointment Date:03/29/2023 11:15:00 AM Scheduled Provider:Patricio CHAKRABORTY MD Location:[facility] Appointment Type:URO Office Visit Diagnostic Tests Pending * Testosterone Level Total 11/23/22 * Prolactin Level 11/23/22 [facility] evalegatjh noteNo assessment information available [facility] In[employer]Patient Work Phone: Evaluation noteNo InformationNortBro[facility] [employer] Other Evaluation note* Diagnosis Screening for genitourinary condition Screening for other and unspecified genitourinary condition documented in this encounter [facility] note* Diagnosis Vasectomy status- Primary documented in this encounter [facility] note* Diagnosis Multiple subsegmental pulmonary emboli without acute cor pulmonale (HCC)- Primary Anticoagulation management encounter Encounter for therapeutic drug monitoring documented in this encounter [facility] note* Diagnosis Onset Date Resolution Status Depression acute [facility] [employer] Work Phone: Histfzm general Narrative - Reported* Type Description Date Medical History fx rt great toe Medical History diabetes mallitus Medical History mood disorder Surgical History arthroscopic knee surgery [facility] Other Hospital Discharge instructions No data 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 DATE CREATED AUTHOR AUTHOR'S ORGANIZ ATION 07/17/2022 [facility] DATE CREATED AUTHOR AUTHOR'S ORGANIZ ATION 09/22/2022 [facility] DATE CREATED AUTHOR AUTHOR'S ORGANIZ ATION 12/11/2022 [facility] REASON FOR VISIT (unrecogniz ed section and [...] or prosecute any alcohol or drug abuse patient.[facility] the event this information is protected by the Federal Confidentiality of Alcohol and Drug Abuse Patient Records regulations: The Federal rules restrict any use of the information to criminally investigate or prosecute any alcohol or drug abuse patient.[facility] the event this information is protected by the Federal Confidentiality of Alcohol and Drug Abuse Patient Records regulations: The Federal rules restrict any use of the information to criminally investigate or prosecute any alcohol or drug abuse patient.[facility] the event this information is protected by the Federal Confidentiality of Alcohol and Drug Abuse Patient Records regulations: The Federal rules restrict any use of the information to criminally investigate or prosecute any alcohol or drug abuse patient.[facility] FOR RECORDS PERTAINING TO PATIENTS WHO ARE [...] BE BASED ON THE PRIMARY CLINICAL RECORDS. [facility] [employer] [facility]. provides no warranty or guarantee of the accuracy or completeness of information in this document.
--- NOTE | 2024-04-27 22:19 | ED_ITS ---
HPI HPI - General Adult General Chief complaint: Dental/Oral Stated complaint: oral pain Time Seen by Provider: 04/27/24 21:57 Source: patient Mode of arrival: walk-in Limitations: no limitations History of Present Illness HPI narrative: Patient is a very nice 33-year-old male who is coming in complaining of dental pain that started this morning. Patient is having pain to tooth #30 and 31. Patient is clammy, rocking back and forth in bed secondary to pain. Patient was trying to sleep tonight and could not fall asleep secondary to pain. Patient has been alternating Tylenol ibuprofen today with no relief. Patient does have a dentist appointment tomorrow morning. Patient appears to be mostly in pain. He denies trauma. Patient says that he was chewing something earlier today and he felt like a piece of his tooth might of fallen off. Patient has no nausea or vomiting. No headache or neck pain. No other acute complaints. Patient drove himself to the ER today. Patient's mother is a nurse who is known to me as well. All systems are negative except as noted/marked. All systems reviewed and otherwise negative. Nurses note and vital signs reviewed and patient is not hypoxic. Nurses notes reviewed and patient is noted to be non-hypoxic. General: The patient is uncomfortable, alert and oriented x3, patient is mild distress secondary to pain, rocking back and forth, clammy, non toxic in no apparent distress. Head: Atraumatic and normocephalic. Eyes: Normal conjunctiva ENT: The oropharynx is normal. No pharyngeal erythema, uvular edema, tonsillar exudates, asymmetry or trismus. Uvula is midline. Mouth is normal to inspection With the exception of a pain on percussion of the tooth # 30/31 and evidence of dental caries. Probably has II nerve roots exposed to tooth #30/31. Tooth #30 has a opening to the medial aspect middle of the tooth. Tooth #31 to the anterior lateral aspect of the tooth, he has a small opening noted as well just above the gum tissue. No drainage or pus noted. No abscess. Patient There is no evidence of facial asymmetry or abscess formation. Floor of the mouth is soft. No tenderness in the submental or submandibular space. No tongue elevation or deviation. The patient has no evidence of periapical abscess, gingivitis, ANUG or other acute pathology. Airway is patent. Patient left TM shows no erythema, perforation or bulging. Neck: The neck demonstrates normal range of motion. No meningeals signs are present. No stridor. No masses or lymphandenopathy noted. Respiratory: No acute distress, lungs are clear to auscultation, no wheezing, rhonchi, or rales noted. No stridor or retractions are noted. Cardiovascular: Regular rate and rhythm Skin: The skin exam shows no evidence of rashes Neuro: Alert and oriented x4, normal speech Lymphatic: No cervical lymphadenopathy Related Data Home Medications ?Medication ?Instructions ?Recorded ?Confirmed imipramine pamoate 100 mg capsule 100 mg PO BEDTIME 08/04/23 04/27/24 Allergies Allergy/AdvReac Type Severity Reaction Status Date / Time No Known Drug Allergies Allergy Verified 04/27/24 21:44 Opioid HPI Opioid Management Most Recent Opioid Data: Last Pain Scale 8 01/13/24 03:53 01/13/24 [facility] Medical History History of pulmonary embolism ?Z86.711 - Personal history of pulmonary embolism (ICD-10) Diabetes ?E11.9 - Type 2 diabetes mellitus without complications (ICD-10) Gangrene ?I96 - Gangrene, not elsewhere classified (ICD-10) Pulmonary embolus ?I26.99 - Other pulmonary embolism without acute cor pulmonale (ICD-10) Diabetic acidosis, type II ?E11.10 - Type 2 diabetes mellitus with ketoacidosis without coma (ICD-10) Acute hyperglycemia ?R73.9 - Hyperglycemia, unspecified (ICD-10) Surgical History Traphill teeth extracted ?K08.409 - Partial loss of teeth, unspecified cause, unspecified class (ICD- 10) H/O vasectomy ?Z98.52 - Vasectomy status (ICD-10) Family History Grandfather Family history of cancer Grandmother Family history of cancer Social History Within the past year, how often did you have a drink containing alcohol: never Score interpretation: A score less than 4 is consistent with normal alcohol consumption. Smoking status: Current every day smoker Do you use any of these nicotine containing products: vaping products Non-prescribed substance use: denies use Previous occupational history: none Highest level of school completed/degree received: high school graduate Are you now , , , , never or living with a partner: In a typical week, how many times do you talk on the telephone with family, friends, or neighbors: once per week How often do you get together with friends or relatives: once per week How often do you attend confucianist or mandaeism services: never Do you belong to any clubs or organizations such as confucianist groups unions, [employer] or athletic groups, or school groups: no Total score: 1 Score interpretation: A score of less than or equal to 1 indicates the most socially isolated. Little interest or pleasure in doing things: not at all Feeling down, depressed, or hopeless: not at all Feel stressed/tense/nervous/anxious/difficulty sleeping: only a little Do you think of yourself as: straight/heterosexual Gender Identity: male Exam Constitutional Vital Signs, click to edit/add: Last Vital Signs Temp 98.1 F 04/27/24 21:40 Pulse 97 H 04/27/24 21:40 Resp 18 04/27/24 21:40 BP 159/99 H 04/27/24 21:40 Pulse Ox 98 04/27/24 21:40 O2 Del Method Room Air 04/27/24 21:40 Course Vital Signs Vital signs: Vital Signs Temperature 98.1 F 04/27/24 21:40 Pulse Rate 97 H 04/27/24 21:40 Respiratory Rate 18 04/27/24 21:40 Blood Pressure 159/99 H 04/27/24 21:40 Pulse Oximetry 98 04/27/24 21:40 Oxygen Delivery Method Room Air 04/27/24 21:40 Temperature 98.1 F 04/27/24 21:40 Pulse Rate 97 H 04/27/24 21:40 Respiratory Rate 18 04/27/24 21:40 Blood Pressure 159/99 H 04/27/24 21:40 Pulse Oximetry 98 04/27/24 21:40 Oxygen Delivery Method Room Air 04/27/24 21:40 Medical Decision Making MDM Narrative Medical decision making narrative: Patient was very nice, very appreciated. Patient was given dental analgesia. Patient was also given 2 [place] to take home as well for pain. Patient has not a dentist appointment in the morning. No pus or drainage needed, no antibiotic needed. Patient was very thankful for help. No question at discharge. Discharge Plan Discharge Chief Complaint: Dental/Oral Clinical Impression: Pain, dental, Atypical face pain Patient Disposition: Home, Self-Care Time of Disposition Decision: 22:17 Condition: Fair Prescriptions / Home Meds: No Action imipramine pamoate 100 mg capsule 100 mg PO BEDTIME Print Language: Tajik Instructions: Toothache (ED), Atypical Facial Pain (ED) Additional Instructions: Use 1 cotton ball every 4-6 hours to help with dental/nerve pain See your dentist tomorrow morning You may take 1 [place] every 4 hours as needed for acute pain Referrals: KRUPA DÍAZ [Primary Care Provider] - 1 week
[2024-04-27] MEDS: BENZOCAINE 30 ML, lidocaine HCL 15 ML MM (22:21)
[2024-04-27] MEDS: HYDROCODONE/ACET 5-325 MG TABLET 2 TAB PO (22:21)
== END 2024-04-27 22:29 | disposition home or self-care (01) ==
PROVIDERS: Emergency Provider Emergency Medicine; Family Provider Family Medicine; PCP Nurse Practitioner Family
DX: K08.89 Other specified disorders of teeth and supporting structures (principal); G50.1 Atypical facial pain
CPT/HCPCS: 99284

== ENCOUNTER 2024-07-04 14:28 | Outpatient (OUT) | payer OTHER, SELFPAY ==
[2024-07-04 15:22] LABS: Estimated Average Glucose 126 mg/dL
== END 2024-07-04 14:29 | disposition home or self-care (01) ==
LOC: LAB 14:31
PROVIDERS: Family Provider Family Medicine; PCP Nurse Practitioner Family; Visit Provider Nurse Practitioner Family
DX: E11.9 Type 2 diabetes mellitus without complications (principal)
CPT/HCPCS: 36415; 83036

== ENCOUNTER 2024-07-10 13:04 | Outpatient (OUT) | payer OTHER, SELFPAY ==
[2024-07-11 04:07] LABS: Testosterone 683 ng/dL (264-916)
== END 2024-07-10 13:05 | disposition home or self-care (01) ==
LOC: LAB 13:06
PROVIDERS: Family Provider Family Medicine; PCP Nurse Practitioner Family; Visit Provider Nurse Practitioner Family
DX: E29.1 Testicular hypofunction (principal)
CPT/HCPCS: 36415; 84403

== ENCOUNTER 2024-08-21 23:06 | Emergency (ER) | payer OTHER, SELFPAY ==
--- OUTSIDE RECORDS SUMMARY | 2024-04-28 05:51 | XMS_ITS | Continuity of Care Document ---
[facility] Organization [facility] Address [address] [place] [address] Phone Care Team Providers Care Extension Course Counselor Name Role Phone Mati Salgado DMD Unavailable [...] Prophylaxis Adult Nutrit Couns For Control Of [place] Dis Oct Oral Hygiene Instruction Oral Hygiene Instruction Resin Composite 2s; Posterior 4 Resin Composite 1s; Posterior 4 Intraoral-complete Series (bw) Oral Hygiene Instruction Comp Oral Eval New/estab Patient 2023 Advance Directives Directive Yes / No Effective Date File Name No Information Encounters Encounter Description Practice Location Reason(s) For Visit Diagnoses Date Provider Providers Copied on Encounter [facility], [address] [place] [address], [id number], [place] tel:[phone] Dental Clinic dental emergency (chief complaint) Encounter for screening for dental disorders Naomi Thorne. [address] [place] [address], [id number], [place]. tel:[phone] [facility], [address] [place] [address], [id number], [place] tel:[phone] Dental Clinic [place] (chief complaint) Encounter for screening for dental disorders Naomi DMD Mati. [address] [place], [place], [id number], [place]. tel:[phone] [facility], [address] [place] [address], [id number], [place] tel:[phone] Dental Clinic filling (chief complaint) Encounter for screening for dental disorders Naomi DMD Mati. [address] [place], [place], [id number], [place]. tel:[phone] [facility], [address] [place] [address], [id number], [place] tel:[phone] Dental Clinic dn (chief complaint) Encounter for screening for dental disorders Naomi DMD Mati. [address] [place], [place], [id number], [place]. tel:[phone] Family History Family Member Type Diagnosis Age At Onset No Information Payers Payer name Insurance type Covered democrat ID Dada apple(s) [facility] [employer] id CFC [id number] D Medicaid ap - [facility] [id number] Social History Type Description Quantity Date Captured [...] Of Treatment Date Type Action Status Goal Tdap. Due on due Goal Unhealthy drug use screening . Due on due Goal Hepatitis C screening. Due o n due Goal Influenza vaccine. Due on due Goal Depression screening. Due on due Goal RLP. Due on due Goal PRAPARE ASSESSMENT. Due on due Goal Tdap Vaccine. Due on 2024 due Goal Depression screening. Due on due Goal Unhealthy drug use screening . Due on due Goal PRAPARE ASSESSMENT. Due on A due Goal Hep A. Due on du e Goal RLP. Due on due Goal Influenza vaccine. Due on Au due Goal Tdap. Due on due Goal Tdap Vaccine. Due on 2023 due Goal Hepatitis C screening. Due o [...] due Goal RLP. Due on due Goal Tdap Vaccine. Due on 2023 due Goal PRAPARE ASSESSMENT. Due on due Goal RLP. Due on due Goal Depression screening. Due on due Goal Hepatitis C screening. Due o n due Goal Influenza vaccine. Due on due [...]
--- OUTSIDE RECORDS SUMMARY | 2024-08-21 23:20 | XMS_ITS | CCD ---
Author Organization [facility] Care Team Providers Care Supervisor Force Adjustment Name Role Phone Jakcelin Hale Primary Care Provider [phone] MD Patricio Chakraborty Attending Provider NONE, XXXX Primary Care Physician Unavailab le NO FAMILY, PHYSICIAN Primary Care Provider Unava ilable MD Oliver Diehl Jr Emergency Provider MD Segun Cho Emergency Provider Bailey Vanegas Unavailable Shruthi Billingsley Unavailable Unavailable Primary Care Provider UnavailSHRUTHI Beatty Primary Care Physician [phone] NO FAMILY, PHYSICIAN Primary Care Provider Unava [...] FAMILY, PHYSICIAN Primary Care Unavailable NOE HALE JACKLEIN Primary Care Unavailable DR ELIUD IRIZARRY V [...] MOODY Attending Unavailable FRANSISCO, NOLAN Admitting Unavailable AJRUN, SHRUTHI Primary Care Unavailable SEGUN GALLEGOS Consulting Unavailable LALITA ., GARRISON Attending Unavailable LALITA ., GARRISON Admitting Unavailable JILLIAN .CHARLES Consulting Unavailclaudia chacko [facility], SHRUTHI Primary Care Unavailable ELIUD HERNANDEZ Consulting Unavailable FAWWAD, WRIGHT H Admitting Unavailable AICHHOLZ, RECEIVING BARN CUSTODIAN JACKELIN Primary Care Unavailable FAWWAD, WRIGHT H Attending Unavailable AICHOLZ, RECEIVING BARN CUSTODIAN JACKELIN Primary Care Unavailable SHRUTHI DÍAZ Attending Unavailable ARJUN, SHRUTHI Admitting Unavailable FAWWAD, WRIGHT H Attending Unavailable FAWWAD, WRIGHT H Admitting Unavailable AICHHOLZ, RECEIVING BARN CUSTODIAN JACKELIN Primary Care Unavailable FAWWAD, WRIGHT H [...] SHRUTHI Primary Care Unavailable CHAKRABORTY ., DR GOEZT Attending Unavailable CHAKRABORTY ., DR GOETZ Admitting Unavailable AICHHOLZ, NOE GUTIERREZ Primary Care Unavailable ARJUN, SHRUTHI Attending Unavailable ARJUN, SHRUTHI Admitting Unavailable WEIGHT, THAIR Attending Unavailable CHAKRABORTY, Patricio R Attending Unavailable [...] Medication Allergies] Propensity to adverse reactions (disorder) [facility] Repository Medications Current Medications Medication Drug Class(es) [...] 6 hours 15 July 31, 2021 11:45pm [id number] 200 actuat albuterol 0.09 mg/actuat metered dose [...] Bedtime, # 90 tab(s), Refills(s) 3, Pharmacy: [facility]/pharmacy #[id number], 190, ignacio, 06/11/22 8:47:00 EDT, Height/Length Dosing, 175, kg, 06/11/22 8:47:00 EDT, Weight Dosing Start Date: 07/08/22 Status: Ordered Start: 10-06-2021 take 2 tablets by mo [facility] at bedtime DDAVP 0.2 mg oral tablet 0.4 mg = 2 tab(s), Oral, Bedtime, # 180 tab(s), Refills(s) 2, Pharmacy: [facility]/pharmacy #[id number], 190, cm, 10/06/21 11:26:00 EDT, Height/Length Dosing, 175, kg, 10/06/21 11:26:00 EDT, Weight Dosing Start Date: 10/06/21 Status: Ordered Start: 10-06-2021 take 1 tablet by jason th three times daily DDAVP 0.2 mg oral tablet 0.2 mg = 1 tab(s), Oral, TID, # 90 tab(s), Refills(s) 2, Pharmacy: [facility]/pharmacy #[id number], ignacio Lindsey, 10/06/21 11:26:00 EDT, Height/Length Dosing, 175, kg, 10/06/21 11:26:00 EDT, Weight Dosing Start Date: 10/06/21 Status: Ordered Start: 06-09-2021 take 1 tablet by jason once daily DDAVP 0.2 mg oral tablet 0.2 mg = 1 tab(s), Oral, Daily, # 30 tab(s), Refills(s) 11, Pharmacy: [facility]/pharmacy #[id number], 190, ignacio, 06/09/21 13:52:00 EDT, Height/Length [...] Start: 10-05-2020 take 1 capsule by mo [facility] once daily Fluoxetine (Prozac) 20 mg [...] day(s), # 60 cap(s), Refills(s) 6, Pharmacy: [facility]/pharmacy #[id number], 190, cm, 11/23/22 11:45:00 EDT, Height/Length [...] Daily, # 30 tab(s), Refills(s) 11, Pharmacy: [facility]/pharmacy #[id number], 190, cm, 12/15/21 14:21:00 EDT, Height/Length Dosing, 175, kg, 12/15/21 14:21:00 EDT, Weight Dosing Start Date: 12/15/21 Status: Ordered sulfamethoxazole 800 mg / trimethoprim 160 mg oral tablet (1 source) Dihydrofolate Reductase Inhibitor Antibacterial, Sulfonamide Antimicrobial Start: 07-14-19 End: 07-19-19 Bactrim D.S. 800 mg-160 mg Tab 160 mg, Oral, BID for 5 day(s), 10 tab(s), Refill(s) 0, [facility]/pharmacy #[id number], 193, cm, 07/11/22 20:16:00 EDT, Height/Length [...] current use of drug therapy; Translations: [Other medical terminologist (current) drug therapy] Onset: 3 Episodic Other aftercare (1 source) Other medical terminologist (current) drug therapy; Translations: [OTH ASSISTED CURRENT DRUG THERAPY] Onset: 3 Episodic Other aftercare (1 source) long term acute care registered nurse (current) use of insulin; Translations: [STONE OPERATOR CURRENT USE OF INSULIN] Onset: 3 Episodic Other aftercare (1 source) long term acute care registered nurse (current) use of oral hypoglycemic drugs; Translations: [ASSISTED USE ORAL HYPOGLYCEMIC DX] Onset: 3 Episodic [...] Onset: 01-06-2022 Episodic Other aftercare (1 source) long term acute care registered nurse (current) use of anticoagulants; Translations: [ASSISTED CURRNT USE ANTICOAGULANTS] Onset: 02-06-2022 Episodic Other [...] Facility Pre-Certification Formon Pre-Certification Form [id number]#1 .00CD:127 [facility] Lab Reportson 12-04-2022 Lab Reports [id number]#1 .00CD:[address] [facility] Ambulatory Visit Summaryon 0 11-23-2022 Ambulatory Visit Summary Normal [facility] Patient Educationon 11-24-[address] [facility] Urology Office/Clinic Noteon 11-23-2022 Urology Office/Clinic Note Normal [facility] Comment on above: Result Comment: Elec tronically Signed By: Patricio CHAKRABORTY MD\.br\Date and Time Signed: 11/23/22 13:02 EDT\.br\Electronically Co-Signed By: Tara Lee\.br\Date and Time Co-Signed: 11/23/22 13:00 EDT Ambulatory Visit Summaryon 0 08-17-2022 Ambulatory Visit Summary Normal [facility] Patient Educationon 08-18-19 Patient Education [facility] Physician Referralon 023 Physician Referral [id number]#1 .00CD:[address] [facility] Urology Office/Clinic Noteon 08-17-2022 Urology Office/Clinic Note [facility] Comment on above: Result Comment: Elec tronically Signed By: Patricio CHAKRABORTY MD\.br\Date and Time Signed: 08/17/22 11:40 EDT\.br\Electronically Co-Signed By: Germaine Mccain\.br\Date and Time Co-Signed: 08/17/22 11:37 EDT C Urineon 07-14-2022 Bacteria identified Cx Nom (U) Normal [facility] Comment on above: Performed By: #### 2 [id number], [id number] ####[facility] [address] [place] [address] BMPon 07-13-2022 Anion gap [Moles/Vol] 12 mmol/L Normal 6-16 [facility] Comment on above: Performed By: #### 1 [id number], [id number] ####[facility] [address] [place] [address] Calcium [Mass/Vol] 8.9 mg/dL Normal 8.9-11.1 [facility] Comment on above: Performed By: #### 1 [id number], [id number] ####[facility] [address] [place] [address] Chloride [Moles/Vol] 102 mmol/L Normal 101-111 [facility] Comment on above: Performed By: #### 1 [id number], [id number] ####[facility] [address] [address] CO2 [Moles/Vol] 24 mmol/L Normal 21-31 [facility] Comment on above: Performed By: #### 1 [id number], [id number] ####[facility] [address] [address] Creatinine [Mass/Vol] 0.6 mg/dL Normal 0.5-1.3 [facility] Comment on above: Performed By: #### 1 [id number], [id number] ####[facility] [address] [address] Glucose [Mass/Vol] 259 mg/dL High 55-199 [facility] Comment on above: Result Comment: If t his glucose result represents a fasting glucose, interpretation should refer to the following reference range: 55-99 mg/dL Performed By: #### 1 [id number], [id number] ####[facility] [address] [place] [address] Potassium [Moles/Vol] 3.9 mmol/L Normal 3.5-5.3 [facility] Comment on above: Performed By: #### 1 [id number], [id number] ####[facility] [address] [place] [address] Sodium [Moles/Vol] 134 mmol/L Low 135-145 [facility] Comment on above: Performed By: #### 1 6121309, [id number] ####[facility] [address] [place] [address] Urea nitrogen [Mass/Vol] 14 mg/dL Normal 5-21 [facility] Comment on above: Performed By: #### 1 [id number], [id number] ####[facility] [address] [place] [address] Urea nitrogen/Creatinine [Mass ratio] 23 No Units High 10-20 [facility] Comment on above: Performed By: #### 1 [id number], [id number] ####[facility] [address] [place] [address] CHEMISTRYOrdered By: Lab ROP User on 07-13-2022 Glucose [Mass/Vol] 292 mg/dL High 55 - 99 mg/dL [facility] POC Subsection Comment on above: Result Comment: Shukri sandoval RN/ POC Device SN [id number] Invalid Interpretation Code [facility] POC Subsection POC User ID [id number] Invalid Interpretation Code [facility] POC Subsection POC Username PALAK HINSON Invalid Interpretation Code [facility] POC Subsection Glucose [Mass/Vol] 238 mg/dL High 55 - 99 mg/dL [facility] POC Subsection Comment on above: Result Comment: Shukri sandoval RN/ POC Device SN [id number] Invalid Interpretation Code [facility] POC Subsection POC User ID [id number] Invalid Interpretation Code [facility] POC Subsection POC Username PALAK HINSON Invalid Interpretation Code [facility] POC Subsection CHEMISTRYOrdered By: SYSTEM SYSTEM on 07-13-2022 Anion gap [Moles/Vol] 12 mmol/L Normal 6 - 16 mEq/L [facility] Remisol Calcium [Mass/Vol] 8.9 mg/dL Normal 8.9 - 11. 1 mg/dL [facility] Remisol Chloride [Moles/Vol] 102 mmol/L Normal 101 - 1 11 mmol/L FT Remisol CO2 [Moles/Vol] 24 mmol/L Normal 21 - 31 mmol/L [facility] Remisol Creatinine [Mass/Vol] 0.6 mg/dL Normal 0.5 - 1.3 mg/dL [facility] Remisol GFR/1.73 sq M.predicted among non-blacks MDRD (S/P/Bld) [Vol rate/Area] 131 mL/min/1.73 m2 Normal >=59mL/min/ 1.73 m2 [facility] Chem S Glucose [Mass/Vol] 259 mg/dL High 55 - 199 mg/dL [facility] Remisol Potassium [Moles/Vol] 3.9 mmol/L Normal 3.5 - 5.3 mmol/L [facility] Remisol Sodium [Moles/Vol] 134 mmol/L Low 135 - 145 mmol/L [facility] Remisol Urea nitrogen [Mass/Vol] 14 mg/dL Normal 5 - 21 mg/dL [facility] Remisol Urea nitrogen/Creatinine [Mass ratio] 23 mg/mg High 10 - 20 [facility] Remisol Capillary Glucose POCon 05-0 Glucose [Mass/Vol] 292 mg/dL High 55-99 [facility] Comment on above: Result Comment: Shukri FROST Performed By: #### 2 [id number] ####[facility] [address] [place] [address] Glucose [Mass/Vol] 238 mg/dL High 55-99 [facility] Comment on above: Result Comment: Shukri FROST Performed By: #### 2 [id number] ####[facility] [address] [place] [address] Discharge Instructionson Discharge Instructions [id number]#1. 00CD:[address] [facility] Discharge Note-Nursingon Discharge Note-Nursing Normal [facility] Ferritinon 07-13-2022 Ferritin [Mass/Vol] 126 ng/mL Normal 24-336 [facility] Comment on above: Result Comment: NORM ALS MEN <30 YRS 16-132 ng/mL MEN >30 YRS 8-338 ng/mL WOMEN (PREMEN) 6-104 ng/mL WOMEN (POSTMEN) 12-210 ng/mL Performed By: #### 1 [id number], 5588861, 5880708, 8391647, [id number] ####[facility] [address] [place] [address] Inpatient Clinical Summaryon 07-13-2022 Inpatient Clinical Summary Normal [facility] Inpatient Patient Summaryon 07-13-2022 Inpatient Patient Summary Normal [facility] Inpatient Patient Summary Normal [facility] Interdisciplinary Note - Kane e Manageron 07-13-2022 Interdisciplinary Note - Lozenge Maker Normal [facility] Comment on above: Result Comment: Elec tronically Signed By: Quang CEDILLO, Evie\.br\Date and Time Signed: 07/13/22 11:37 EDT Patient Education - Texton 0 07-13-2022 Patient Education - Text Normal [facility] eGFRon 07-13-2022 GFR/1.73 sq M.predicted among non-blacks MDRD (S/P/Bld) [Vol rate/Area] 131 mL/min/1.73 m2 Normal >=59 [facility] Comment on above: Order Comment: Order added by Discern Expert. Result Comment: Boning Room Worker julián kidney disease could be indicated at eGFR's of less than 60 mL/min/1.73m2. Kidney failure is indicated at less than 15 mL/min/1.73m2. Performed By: #### 1 [id number], [id number] ####[facility] [address] [place] [address] BNPon 07-12-2022 Natriuretic peptide B (Bld) [Mass/Vol] pg/mL Normal 5-80 [facility] Comment on above: Performed By: #### 1 [id number] ####[facility] [address] [place] [address] CHEMISTRYOrdered By: Lab ROP User on 07-12-2022 Glucose [Mass/Vol] 284 mg/dL High 55 - 99 mg/dL [facility] POC Subsection Comment on above: Result Comment: Pamela fleming Meter POC Device SN [id number] Invalid Interpretation Code [facility] POC Subsection POC User ID [id number] Invalid Interpretation Code [facility] POC Subsection POC Username ARGELIA SHARIF Invalid Interpretation Code [facility] POC Subsection CHEMISTRYOrdered By: Cass Ryan on 07-12-2022 Natriuretic peptide B (Bld) [Mass/Vol] pg/mL Normal 5 - 80 pg/mL [facility] HemeManSS CHEMISTRYOrdered By: SYSTEM SYSTEM on 07-12-2022 CRP [Mass/Vol] 6.3 mg/dL High <=1.9mg/dL FT Remis ol Ferritin [Mass/Vol] 126 ng/mL Normal 24 - 336 ng/mL FT Remisol LDH [Catalytic activity/Vol] 160 [iU]/d Normal 93 - 218 Int._Unit/L FT Remisol Procalcitonin 0.10 ng/mL Normal 0.00 - 0.50 ng/mL [facility] Remisol Troponin I.cardiac [Mass/Vol] pg/mL Low 15.90 - 38.40 pg/mL [facility] Remisol COVID-19 ([facility])on 07-12-2022 Performing Instrument FT Waqas 2 Normal Fis [facility] Comment on above: Performed By: #### 2 [id number] ####[facility] [address] [place] [address] SARS-CoV-2 (COVID-19) RNA ECTOR+probe Ql (Resp) Not detected Normal Not Detected [facility] Comment on above: Result Comment: This test result should be correlated with clinical presentations and medical history by a healthcare provider to determine its clinical significance.This assay was performed by a reverse transcriptase real-time polymerase chain reaction (rt PCR) method on the Mobile [employer] system. This test has been authorized only [...] or revoked sooner. Performed By: #### 2 [id number] ####[place] [address] SARS-CoV-2 (COVID-19) RNA ECTOR+probe Ql (Unsp spec) Pass Normal Pass [facility] Comment on above: Performed By: #### 2 [id number] ####[place] [address] Specimen source Nom (Unsp spec) Nasal Normal [facility] Comment on above: Performed By: #### 2 [id number] ####[place] [address] ADMITTED TO INTENSIVE CARE UNIT FOR CONDITION OF INTEREST:FIND:PT: NO Normal [facility] Comment on above: Performed By: #### 2 [id number] ####[place] [address] EMPLOYED IN A HEALTHCARE SETTING:FIND:PT: NO Normal [facility] Comment on above: Performed By: #### 2 [id number] ####[place] [address] FIRST TEST FOR CONDITION OF INTEREST:FIND:PT: Unknown Normal [facility] Comment on above: Performed By: #### 2 [id number] ####[place] [address] HAS SYMPTOMS RELATED TO CONDITION OF INTEREST:FIND:PT: Unknown Normal [facility] Comment on above: Performed By: #### 2 [id number] ####[place] [address] HOSPITALIZED FOR CONDITION OF INTEREST:FIND:PT: YES Normal [facility] Comment on above: Performed By: #### 2 [id number] ####[place] [address] STATUS:FIND:PT: NO Normal [facility] Comment on above: Performed By: #### 2 [id number] ####[facility] [address] [place] [address] RESIDES IN A [facility] CARE SETTING:FIND:PT: NO Normal [facility] Comment on above: Performed By: #### 2 [id number] ####[facility] [address] [place] [address] CRPon 07-12-2022 CRP [Mass/Vol] 6.3 mg/dL High <=1.9 [facility] Comment on above: Performed By: #### 1 9883271, 8698765, 6180148, 2697523, [id number] ####[facility] [address] [place] [address] CT Head or Brain w/o Contras ton 07-12-2022 CT Head or Brain w/o Contrast Normal [facility] CT Spine Cervical w/o Contra ston 07-12-2022 CT Spine Cervical w/o Contrast Normal [facility] CTA Cheston 07-12-[address] [facility] Capillary Glucose POCon Glucose [Mass/Vol] 284 mg/dL High 55-99 [facility] Comment on above: Result Comment: Pamela fleming Meter Performed By: #### 2 [id number] ####[facility] [address] [place] [address] Glucose [Mass/Vol] 378 mg/dL High -99 [facility] Comment on above: Performed By: #### 2 [id number] ####[facility] [address] [place] [address] Glucose [Mass/Vol] 296 mg/dL High 55-99 [facility] Comment on above: Performed By: #### 2 [id number] ####[facility] [address] [place] [address] Glucose [Mass/Vol] 324 mg/dL High 55-99 [facility] Comment on above: Result Comment: Shukri sandoval RN/ Performed By: #### 2 [id number] ####[facility] [address] [place] [address] Glucose [Mass/Vol] 409 mg/dL High 55-99 [facility] Comment on above: Result Comment: Shukri sandoval RN/ Performed By: #### 2 [id number] ####[facility] [address] [place] [address] Consent for Treatmenton 05 Consent for Treatment [id number]#1 .00CD:[address] [facility] ED Clinical Summaryon 2022 ED Clinical Summary Normal [facility] ED Note-Physicianon 07-13-19 ED Note-Physician Normal [facility] Comment on above: Result Comment: Elec tronically Signed By: Marietta Guerrero DObr\Date and Time Signed: 07/12/22 01:02 EDT ED Patient Education Noteon 07-12-2022 ED Patient Education Note Normal [facility] ED Patient Summaryon 023 ED Patient Summary [address] [facility] EMS Documentationon 07-13-[address] [facility] EMS Documentation Normal [facility] Influenza A&B Agon Influenzae A Ag Negative Normal Negative [facility] Comment on above: Performed By: #### 1 [id number], [id number] ####[facility] [address] [place] [address] Influenzae B Ag Negative Normal Negative [facility] Comment on above: Result Comment: Test sensitivity and specificity vary for age group, specimen type, antigen types, and prevalence of disease. Test results must be evaluated in conjunction with other clinical data available to the physician. Individuals who received nasally administered Influenza A vaccine may have positive test results up to 3 days after vaccination. Performed By: #### 1 [id number], [id number] ####[facility] [address] [place] [address] Insurance Correspondence Off ice07-12-2022 Insurance Correspondence Office [id number]# 1.00CD:[address] [facility] Interdisciplinary Note - Kane e Manageron 07-12-2022 Interdisciplinary Note - Lozenge Maker Normal [facility] Comment on above: Result Comment: Elec tronically Signed By: Cass Loera.hilda\Date and Time Signed: 07/12/22 12:26 EDT LDHon 07-12-2022 LDH [Catalytic activity/Vol] 160 Int._Unit/L Normal 93-218 [facility] Comment on above: Performed By: #### 1 3788365, 6559547, 0323131, 3585544, [id number] ####[facility] [address] ReplySendbridgeport [place] [address] Monitor Recordon 07-12-2022 Monitor Record [id number]# 1.00CD:[address] [facility] Monitor Record [id number]# 1.00CD:[address] [facility] Monitor Record [id number]# 1.00CD:[address] [facility] Procalcitoninon 07-12-2022 Procalcitonin .10 ng/mL Normal .00-.50 [facility] Comment on above: [...] to 24 hours. Performed By: #### 1 8977645, 2751342, 4001783, 6011934, [id number] ####[facility] [address] [place] [address] RAD - Preliminary Cat Scan R eporton 07-12-2022 RAD - Preliminary Cat Scan Report [id number]#1 .00CD:[address] [facility] Rapid COVID Antigen ([facility])on 07-12-2022 Rapid COV Int NEG Ctl Pass Normal [facility] Comment on above: Performed By: #### 1 [id number], [id number] ####[facility] [address] [place] [address] Rapid COV Int POS Ctl Pass Normal [facility] Comment on above: Performed By: #### 1 [id number], [id number] ####[facility] [address] [place] [address] SARS-CoV+SARS-CoV-2 (COVID-19) Ag IA.rapid Ql (Resp) Not detected Normal Not Detected [facility] Comment on above: Result Comment: The [employer]? System for Rapid Detection of SARS-CoV-2 is [...] or revoked sooner. Performed By: #### 1 [id number], [id number] ####[facility] [address] [place] [address] Troponin 3 Hr.on 07-12-2022 Troponin I.cardiac [Mass/Vol] 2.30 pg/mL Low 15.90-38.40 [facility] Comment on above: Result Comment: The 95% CI (Confidence Interval) PPV (Positive Predictive Value) for myocardial infarction in females is 38 pg/mL, in males 51 pg/mL. The results should be used in conjunction with clinical conditions of myocardial infarction.(Access High Sensitivity Troponin I Instructions For Use, [employer], October 2017) Performed By: #### 1 [id number] ####[facility] [address] [place] [address] Troponin 6 Hr.on 07-12-2022 Troponin I.cardiac [Mass/Vol] ng/mL Low 15.90-38.40 [facility] Comment on above: Result Comment: The 95% CI (Confidence Interval) PPV (Positive Predictive Value) for myocardial infarction in females is 38 pg/mL, in males 51 pg/mL. The results should be used in conjunction with clinical conditions of myocardial infarction.(Gliph High Sensitivity Troponin I Instructions For Use, [employer]INAS [employer]HARMA, October 2017) Performed By: #### 1 [id number], 3407302, 0953917, 7716764, [id number] ####[address] [place] [address] UA With Cult Reflexon 2022 Bacteria LM Ql (Urine sed) 1+ /HPF Abnormal Trace [facility] Comment on above: Performed By: #### 2 291553, [id number] ####[facility] [address] [place] [address] Bilirubin Ql (U) Negative Normal Negative [facility] Comment on above: Performed By: #### 2 372074, [id number] ####[facility] [address] [place] [address] Clarity (U) CLEAR Normal Clear [facility] Comment on above: Performed By: #### 2 960239, [id number] ####[facility] [address] [place] [address] Color (U) YELLOW Normal Yellow [facility] Comment on above: Performed By: #### 2 [id number], [id number] ####[facility] [address] [place] [address] Epithelial cells.squamous LM.HPF (Urine sed) [#/Area] 3-4 Normal 0-2 [facility] Comment on above: Performed By: #### 2 978417, [id number] ####[facility] [address] [place] [address] Glucose Test strip (U) [Mass/Vol] 2+ Abnormal Negative [facility] Comment on above: Performed By: #### 2 324678, [id number] ####[facility] [address] [place] [address] Hemoglobin Ql (U) TRACE Abnormal Negative [facility] Comment on above: Performed By: #### 2 728489, [id number] ####[facility] [address] [place], [place] [address] Ketones (U) [Mass/Vol] Negative Normal Negative [facility] Comment on above: Performed By: #### 2 846370, [id number] ####[facility] [address] [place] [address] Custer.plasma/Custer. RBC (Bld) [Mass ratio] 4-20 Normal 0-3 [facility] Comment on above: Performed By: #### 2 058855, [id number] ####[facility] [address] [place] [address] Mucus Ql (Urine sed) 1+ Normal [facility] Comment on above: Performed By: #### 2 679385, [id number] ####[facility] [address] [place] [address] Nitrite Ql (U) Positive Abnormal Negative [facility] Comment on above: Performed By: #### 2 832042, [id number] ####[address] [address] pH (U) 6.0 [pH] Invalid Interpretation Code 5.0-9.0 [facility] Comment on above: Performed By: #### 2 047584, [id number] ####[address] [address] Protein (U) [Mass/Vol] 2+ Abnormal Negative [facility] Comment on above: Performed By: #### 2 621693, [id number] ####[address] [address] Specific gravity (U) [Rel density] 1.020 Invalid Interpretation Code 1.005-1.030 [facility] Comment on above: Performed By: #### 2 317008, 00685495 ####[address] [address] Type of Urine collection method Clean Catch Normal [facility] Comment on above: Performed By: #### 2 489903, 78087574 ####[address] [address] Urobilinogen Qn (U) 0.2 {Chintan'U}/dL Normal 0.0-1.0 [facility] Comment on above: Performed By: #### 2 837764, [id number] ####[address] [address] WBC Auto Ql (U) Negative Normal Negative [facility] Comment on above: Performed By: #### 2 440042, [id number] ####[address] [address] WBC LM.HPF (Urine sed) [#/Area] 6-15 Abnormal 0-5 [facility] Comment on above: Performed By: #### 2 935742, [id number] ####[facility] [address] [place] [address] XR Chest Single Viewon 07-12 XR Chest Single View Normal Fish er [facility] Auto Diffon 07-11-2022 Basophils/100 WBC (Bld) 0.2 % Normal 0.0-2.0 F [facility] Comment on above: Order Comment: Order Added by Discern Expert. Performed By: #### 2 278458, 54694809, 9804902, 2852096, 4528398, 2696689, 09997175, 5048905, 6120248, 69673469 ####[facility] [address] [place] [address] Basophils/Leukocytes Auto (Bld) [Pure # fraction] 0.0 E9/L Normal 0.0-0.2 [facility] Comment on above: Order Comment: Order Added by Discern Expert. Performed By: #### 2 525018, 30675736, 3612961, 6370803, 7122646, 8239562, 31758033, 3678374, 6866381, 80782030 ####[facility] [address] [place] [address] Eosinophils/100 WBC (Bld) 0.3 % Normal 0.0-8.0 [facility] Comment on above: Order Comment: Order Added by Discern Expert. Performed By: #### 2 702537, 40255545, 0829126, 8939985, 1076902, 7183165, 66761449, 4710251, 7912212, 87027890 ####[facility] [address] [place] [address] Eosinophils/Leukocytes Auto (Bld) [Pure # fraction] 0.0 E9/L Normal 0.0-0.5 [facility] Comment on above: Order Comment: Order Added by Discern Expert. Performed By: #### 2 415690, 40585133, 1070654, 3908810, 3082408, 4026210, 03920646, 2284688, 2924305, 56724799 ####[address] [place] [address] Lymphocytes/100 WBC (Bld) 15.1 % Normal 14.0-50.0 [facility] Comment on above: Order Comment: Order Added by Discern Expert. Performed By: #### 2 006119, 10754081, 2587074, 4320181, 7019841, 4400523, 34782735, 6643677, 4194690, 49207815 ####[address] [place] [address] Lymphocytes/Leukocytes Auto (Bld) [Pure # fraction] 1.0 E9/L Normal 1.0-4.0 [facility] Comment on above: Order Comment: Order Added by Discern Expert. Performed By: #### 2 812555, 97600978, 4410443, 3418422, 7690348, 7753611, 70474388, 8072739, 7584745, 55113867 ####[address] [address] Monocytes/100 WBC (Bld) 8.3 % Normal 4.0-14.0 [facility] Comment on above: Order Comment: Order Added by Discern Expert. Performed By: #### 2 850337, 46216963, 1280502, 2623848, 6920593, 7132491, 37926432, 8779799, 0013507, 82596012 ####[address] [place] [address] Monocytes/Leukocytes Auto (Bld) [Pure # fraction] 0.6 E9/L Normal 0.2-1.0 [facility] Comment on above: Order Comment: Order Added by Discern Expert. Performed By: #### 2 458527, 61648902, 6809375, 6722497, 3799777, 5166983, 21046228, 8709824, 2404483, 04121221 ####[address] [place] [address] Neutrophils/100 WBC (Bld) 76.1 % High 36.0-75.0 [facility] Comment on above: Order Comment: Order Added by Discern Expert. Performed By: #### 2 914911, 54354738, 4511018, 0060783, 7801011, 2460543, 62251620, 0050316, 7530661, 39678270 ####[facility] [address] [place] [address] Neutrophils/Leukocytes Auto (Bld) [Pure # fraction] 5.2 E9/L Normal 2.0-7.5 [facility] Comment on above: Order Comment: Order Added by Discern Expert. Performed By: #### 2 189041, 13804637, 0019954, 5967875, 4068206, 7693358, 53778857, 8670959, 2336566, 30923495 ####[facility] [address] [place] [address] BMPon 07-11-2022 Creatinine [Mass/Vol] 1.1 mg/dL Normal 0.5-1.3 [facility] Comment on above: Performed By: #### 2 015936, 07811642, 9496070, 5182427, 6035396, 1433548, 58154584, 3064519, 9390791, 65634483 ####[facility] [address] [place] [address] Urea nitrogen [Mass/Vol] 11 mg/dL Normal 5-21 [facility] Comment on above: Performed By: #### 2 013186, 21937502, 2384021, 1528098, 9335160, 0928177, 79582022, 4307430, 2488836, 99026535 ####[facility] [address] [place] [address] Urea nitrogen/Creatinine [Mass ratio] 10 No Units Normal 10-20 [facility] Comment on above: Performed By: #### 2 678438, 06690847, 2304688, 1774647, 9787564, 1111591, 93379626, 6277156, 3850075, 75121769 ####[facility] [address] [place] [address] Anion gap [Moles/Vol] 16 mmol/L Normal 6-16 [facility] Comment on above: Performed By: #### 2 929365, 89919067, 1898981, 1714183, 7020887, 3001067, 49719774, 4847087, 4719641, 49446663 ####[facility] [address] [place] [address] Calcium [Mass/Vol] 8.9 mg/dL Normal 8.9-11.1 [facility] Comment on above: Performed By: #### 2 143270, 99415655, 9197141, 7637438, 2458137, 6429713, 88592389, 7175796, 8060099, 62182461 ####[facility] [address] [place] [address] Chloride [Moles/Vol] 98 mmol/L Low 101-111 [facility] Comment on above: Performed By: #### 2 821504, 14357584, 0909848, 9875983, 3677774, 1356249, 87565585, 6577801, 4655162, 38054406 ####[facility] [address] [place] [address] CO2 [Moles/Vol] 24 mmol/L Normal 21-31 [facility] Comment on above: Performed By: #### 2 154744, 37444146, 4143890, 0402224, 2858921, 8577127, 80920899, 1403283, 7745520, 40721746 ####[facility] [address] [place] [address] Glucose [Mass/Vol] 309 mg/dL High 55-199 [facility] Comment on above: Result Comment: If t his glucose result represents a fasting glucose, interpretation should refer to the following reference range: 55-99 mg/dL Performed By: #### 2 869795, 52341575, 5715224, 5862946, 8877385, 8698583, 43477463, 2495791, 9059352, 77796859 ####[facility] [address] [place] [address] Potassium [Moles/Vol] 4.7 mmol/L Normal 3.5-5.3 [facility] Comment on above: Performed By: #### 2 244182, 18111846, 9753556, 7564371, 5406704, 5795711, 69458511, 0746061, 1951968, 64893371 ####[facility] [address] [place] [address] Sodium [Moles/Vol] 133 mmol/L Low 135-145 [facility] Comment on above: Performed By: #### 2 741028, 98216339, 4579927, 9520916, 8004487, 1376424, 67793526, 8500093, 3528569, 07655243 ####[address] [place] [address] CBC w/ Auto Diffon 3 Erythrocyte distribution width (RBC) [Ratio] 14.5 % High 10.9-14.2 [facility] Comment on above: Performed By: #### 2 651083, 81805360, 2105226, 4033024, 5361821, 4204112, 02355454, 0679375, 4215140, 04030094 ####[address] [place] [address] Hematocrit (Bld) [Volume fraction] 44.2 % Normal 37.7-49.0 [facility] Comment on above: Performed By: #### 2 777649, 65901002, 5393566, 5181418, 5643049, 9779865, 94537616, 9489134, 0176025, 95877567 ####[address] [place] [address] Hemoglobin (Bld) [Mass/Vol] 15.0 g/dL Normal 13.5-17.5 [facility] Comment on above: Performed By: #### 2 119475, 87517194, 8342367, 5822088, 1373878, 7426431, 49229233, 7091982, 8982076, 20358666 ####[facility] [address] [place] [address] MCH (RBC) [Entitic mass] 31.8 pg Normal 27.0-34.0 [facility] Comment on above: Performed By: #### 2 499137, 78521911, 2653209, 1767762, 2479073, 8662314, 34300803, 4785436, 6539876, 32528149 ####[address] [place] [address] MCHC (RBC) [Mass/Vol] 34.0 g/dL Normal 31.4-36.0 [facility] Comment on above: Performed By: #### 2 153655, 02367369, 4535469, 7624096, 2163185, 1193778, 32530770, 4169463, 6053303, 07637909 ####[address] [address] MCV (RBC) [Entitic vol] 93.3 fL Normal 80.0-100.0 F [facility] Comment on above: Performed By: #### 2 978259, 68649456, 8157651, 6069736, 4365586, 1307061, 19179320, 7484902, 3734357, 06926315 ####[facility] [address] [place] [address] Platelet mean volume (Bld) [Entitic vol] 9.4 fL Normal 6.4-10.8 [facility] Comment on above: Performed By: #### 2 101827, 72639964, 2614051, 7880274, 6036294, 1352011, 82850082, 9719569, 6124722, 82311085 ####[address] [place] [address] Platelets (Bld) [#/Vol] 191.0 E9/L Normal 150.0-500.0 [facility] Comment on above: Performed By: #### 2 484068, 62391157, 4576745, 8490962, 1455625, 1377474, 92790325, 3510575, 4163948, 44860431 ####[facility] [address] [place] [address] RBC (Bld) [#/Vol] 4.7 E12/L Normal 4.3-5.9 [facility] Comment on above: Performed By: #### 2 436081, 00618170, 9523984, 0002008, 7510985, 6470379, 92353576, 6265713, 5346564, 78222994 ####[facility] [address] [place] [address] WBC corrected for nucl RBC Auto (Bld) [#/Vol] 6.8 E9/L Normal 4.0-11.0 [facility] Comment on above: Performed By: #### 2 437457, 06197344, 6946658, 6791918, 2463782, 1457306, 29124923, 3791479, 0925652, 88765273 ####[facility] [address] [place] [address] CHEMISTRYOrdered By: SYSTEM SYSTEM on 07-11-2022 Troponin [...] ratio] 10 mg/mg Normal 10 - 20 [facility] Remisol COAGULATIONOrdered By: Aura Qiu on 07-11-2022 aPTT Coag (PPP) [Time] 30.5 s Normal 25.1 - 36.5 second(s) [facility] Auto Coag Fibrin D-dimer FEU (PPP) [Mass/Vol] 1690 ng/mL FEU Invalid Interpretation Code 215 - 500 ng/mL FEU [facility] Auto Coag Comment on above: Result Comment: Resu lts Called To er dr guerrero By ts And Read Back For Confirmation On 07/11/2022 20:41:56 EDT Results Verified By Repeat Analysis INR Coag (PPP) [Relative time] 1.1 {INR} Invalid Interpretation Code [facility] Auto Coag PT Coag (PPP) [Time] 12.0 s Normal 9.4 - 1 2.5 second(s) [facility] Auto Coag Capillary Glucose POCon Glucose [Mass/Vol] 317 mg/dL High 55-99 [facility] Comment on above: Result Comment: Shukri sandoval RN/ Performed By: #### 2 [id number] ####[facility] [id number] D-Dimeron 07-11-2022 Fibrin D-dimer FEU (PPP) [Mass/Vol] 1690 [id number] Abnormal 215-500 [facility] Comment on above: Result Comment: Resu lts [...] skin infectionsLiver cirrhosisPregnancy Performed By: #### 2 142917, 23815151, 5127933, 7381704, 8191182, 0585954, 65910150, 3687139, 8615054, 08912415 ####Julio César [facility] [address] [place] [address] ED Note-Nursingon 07-11-2022 ED Note-Nursing Normal [facility] HEMATOLOGYOrdered By: SYSTEM SYSTEM on 07-11-2022 [...] 4.7 E12/L Normal 4.3 - 5.9 E12/L [facility] HemeAutoSS WBC corrected for nucl RBC Auto (Bld) [#/Vol] 6.8 E9/L Normal 4.0 - 11.0 E9/L [facility] HemeAutoSS Hep Func Panelon 07-11-2022 Albumin [Mass/Vol] 3.8 g/dL Normal 3.3-5.0 [facility] Comment on above: Performed By: #### 2 075317, 02688494, 6354989, 9903905, 9024273, 4055717, 10560128, 0937537, 9007976, 35884435 ####[facility] [address] [place] [address] Albumin/Globulin (S) [Mass conc ratio] 1.0 Low 1.1-2.2 [facility] Comment on above: Performed By: #### 2 014735, 62452148, 1158307, 2009096, 9103589, 9895709, 49701733, 4407122, 7171503, 29950372 ####[facility] [address] [place] [address] ALP [Catalytic activity/Vol] 92 Int._Unit/L Normal 21-98 [facility] Comment on above: Performed By: #### 2 175485, 92724247, 1366802, 1689281, 2001702, 7709503, 24032799, 6876685, 2582156, 52670254 ####[facility] [address] [place] [address] ALT No additional P-5'-P [Catalytic activity/Vol] 37 Int._Unit/L Normal 6-46 [facility] Comment on above: Performed By: #### 2 482017, 92596390, 8137628, 6144880, 3937859, 6034482, 65818099, 3109556, 2711939, 79891414 ####[address] [address] AST [Catalytic activity/Vol] 28 Int._Unit/L Normal 5-43 [facility] Comment on above: Performed By: #### 2 849495, 50594329, 9564783, 4261537, 2614945, 2684647, 15854240, 0283457, 0130617, 16392226 ####[address] [address] Bilirubin [Mass/Vol] 1.2 mg/dL High 0.0-1.1 [facility] Comment on above: Performed By: #### 2 022564, 08166987, 8854080, 0219219, 2964342, 1112811, 19036389, 2703221, 0341155, 57667810 ####[address] [place] [address] Bilirubin.direct [Mass/Vol] 0.2 mg/dL Normal 0.1-0.4 [facility] Comment on above: Performed By: #### 2 917109, 64798558, 0541450, 5281111, 1024190, 1734214, 88305900, 9470131, 2703243, 81804920 ####[facility] [address] [place] [address] Bilirubin.indirect [Mass or moles/Vol] 1.0 mg/dL High 0.1-0.9 [facility] Comment on above: Performed By: #### 2 531545, 61966703, 4426121, 7305674, 7601340, 3902281, 19976813, 2381236, 1759096, 31177652 ####[facility] [address] [place] [address] Globulin (S) [Mass/Vol] 3.7 g/dL Normal 1.4-4.0 [facility] Comment on above: Performed By: #### 2 241226, 62950983, 0056607, 8419064, 4158658, 0791939, 13693742, 0842975, 1512805, 97904065 ####[facility] [address] [place] [address] Protein [Mass/Vol] 7.5 g/dL Normal 6.0-7.8 [facility] Comment on above: Performed By: #### 2 277804, 98253656, 0793988, 1268786, 5647966, 5673812, 42141884, 0811141, 0391981, 80277529 ####[facility] [address] [place] [address] Laboratory - Microbiology an d Antimicrobial susceptibilityOrdered By: Lupe Barnard on 07-11-2022 Bacteria identified Cx Nom (U) >100,000 cfu/ml Staphylococcus species Coagulase Positive [facility] MICRO OTHER TESTSOrdered By: Mariana Doyle on 07-11-2022 Influenzae A Ag Negative (07/11/22 10:22 PM) Normal Negative [facility] Man Sero Influenzae B Ag Negative (07/11/22 10:22 PM) Normal Negative [facility] Sero Rapid COV Int NEG Ctl Pass (07/11/22 10:22 PM) Normal [facility] Man Sero Rapid COV Int POS Ctl Pass (07/11/22 10:22 PM) Normal [facility] Man Sero SARS-CoV+SARS-CoV-2 (COVID-19) Ag IA.rapid Ql (Resp) Not Detected (07/11/22 10:22 PM) Normal Not Detected [facility] Man Sero Magnesiumon 07-11-2022 Magnesium [Mass/Vol] 1.4 mg/dL Normal 1.3-2.4 [facility] Comment on above: Performed By: #### 2 068128, 72092677, 8721693, 5707111, 9352768, 9659330, 02764558, 2962418, 5626705, 02827806 ####[facility] [address] [place] [address] [place] Screenon 07-11-2022 Heterophile Ab LA Ql (S) Negative Normal Negative [facility] Comment on above: Performed By: #### 2 241969, 25987169, 6350731, 3961748, 6549267, 6575790, 08171274, 1064081, 1456048, 54862632 ####[facility] [address] [place] [address] PT & PTTon 07-11-2022 aPTT Coag (PPP) [Time] 30.5 second(s) Normal 25.1-36.5 [facility] Comment on above: Result Comment: Para meter [...] the same coagulation reagent and instrumentation as [facility]. Currently there are no coagulation studies available worldwide for children to 14 days, and no normal ranges. Heparin therapeutic range (represented by Anti-Factor Xa activity of 0.2 - 0.4 U/mL) corresponds to PTT of 56.6 - 109.0 sec. Performed By: #### 2 029370, 40038144, 5407674, 3118378, 4363486, 5994104, 56712172, 1659887, 6384100, 73890567 ####[facility] [address] [place] [address] INR Coag (PPP) [Relative time] 1.1 {INR} Invalid Interpretation Code [facility] Comment on above: Result Comment: INR results are specifically intended to assess patients stabilized on long-term Anticoagulation therapy suggested INR?s ?Less Intensive Anticoagulation? 2.0 ? 3.0Conventional Range 3.0 ? 4.5 Performed By: #### 2 604896, 76531759, 6337028, 3981145, 5225511, 1849216, 40103074, 4826307, 0824679, 03425809 ####[facility] [address] [place] [address] PT Coag (PPP) [Time] 12.0 second(s) Normal 9.4-12.5 [facility] Comment on above: Result Comment: 15 d [...] the same coagulation reagent and instrumentation as [facility]. Currently there are no coagulation studies available worldwide for children to 14 days, and no normal ranges. Performed By: #### 2 456884, 18658322, 7345985, 9269454, 4063899, 4154698, 32016797, 9355391, 2346425, 15114099 ####[facility] [address] [place] [address] Pre-Arrival Noteon Pre-Arrival Note Normal [facility] Rapid COVID Antigen ([facility])on 07-11-2022 ADMITTED TO INTENSIVE CARE UNIT FOR CONDITION OF INTEREST:FIND:PT: NO Normal [facility] Comment on above: Performed By: #### 1 8462712, [id number] ####[place] [address] EMPLOYED IN A HEALTHCARE SETTING:FIND:PT: NO Normal [facility] Comment on above: Performed By: #### 1 6582845, [id number] ####[place] [address] FIRST TEST FOR CONDITION OF INTEREST:FIND:PT: YES Normal [facility] Comment on above: Performed By: #### 1 3219285, [id number] ####[place] [address] HAS SYMPTOMS RELATED TO CONDITION OF INTEREST:FIND:PT: YES Normal [facility] Comment on above: Performed By: #### 1 1296566, [id number] ####[place] [address] HOSPITALIZED FOR CONDITION OF INTEREST:FIND:PT: NO Normal [facility] Comment on above: Performed By: #### 1 0726245, [id number] ####[place] [address] STATUS:FIND:PT: NO Normal [facility] Comment on above: Performed By: #### 1 9001223, [id number] ####[place] [address] [facility]:FIND:PT: NO Normal [facility] Comment on above: Performed By: #### 1 0288047, [id number] ####[place] [address] SEROLOGYOrdered By: Aura humphrey on 07-11-2022 Heterophile Ab LA Ql (S) Negative (07/11/22 8:19 PM) Normal Negative [facility] Man Sero Troponin 0 Hr.on 07-11-2022 Troponin I.cardiac [Mass/Vol] 4.40 pg/mL Low 15.90-38.40 [facility] Comment on above: Result Comment: The 95% CI (Confidence Interval) PPV (Positive Predictive Value) for myocardial infarction in females is 38 pg/mL, in males 51 pg/mL. The results should be used in conjunction with clinical conditions of myocardial infarction.(Access High Sensitivity Troponin I Instructions For Use, Savana Ruben, October 2017) Performed By: #### 2 589109, 18931211, 5532079, 6922435, 0784537, 8935926, 20701486, 7368810, 8045906, 85503085 ####[facility] [address] [place] [address] URINALYSISOrdered By: Cortez Doyle on 07-11-2022 Bacteria [...] PM) Normal Negative [facility] UA Auto SS Custer.plasma/Custer. RBC (Bld) [Mass ratio] 4-20 /HPF Normal 0-3/HPF [facility] UA A uto SS Mucus Ql (Urine sed) 1+ (07/11/22 10:00 PM) Normal [facility] UA Auto SS Nitrite Ql (U) Positive *ABN* (07/11/22 10:00 PM) Invalid Interpretation Code Negative [facility] UA Auto SS pH (U) 6.0 *NA* (07/11/22 10:00 PM) Invalid Interpretation Code 5.0 - 9.0 [facility] UA Auto SS Protein (U) [Mass/Vol] 2+ *ABN* (07/11/22 10:00 PM) Invalid Interpretation Code Negative [facility] UA Auto SS Specific gravity (U) [Rel density] 1.020 *NA* (07/11/22 10:00 PM) Invalid Interpretation Code 1.005 - 1.030 [facility] UA Auto SS UA Spec Desc Clean Catch (07/11/22 10:00 PM) Normal [facility] UA Auto SS Urobilinogen Qn (U) 0.2327111 {Chintan'U}/dL Normal 0.0 - 1.0 EU/dL [facility] UA Auto SS WBC Auto Ql (U) Negative (07/11/22 10:00 PM) Normal Negative [facility] UA Auto SS WBC LM.HPF (Urine sed) [#/Area] 6-15 /HPF Invalid Interpretation Code 0-5/HPF [facility] UA Auto SS eGFRon 07-11-2022 GFR/1.73 sq M.predicted among non-blacks MDRD (S/P/Bld) [Vol rate/Area] 91 mL/min/1.73 m2 Normal >=59 [facility] Comment on above: Order Comment: Order added by Discern Expert. Result Comment: Boning Room Worker juilán kidney disease could be indicated at eGFR's of less than 60 mL/min/1.73m2. Kidney failure is indicated at less than 15 mL/min/1.73m2. Performed By: #### 2 257503, 14659019, 1023198, 0069675, 7804989, 7598162, 01845179, 2860249, 6337210, 82140176 ####[facility] [address] [place] [address] POINT OF CARE GLUCOSEon Glucose [Mass/Vol] 512 mg/dL Critically high 74-106 [facility] Comment on above: Result Comment: Resu lt Not Confirmed Performed By: #### S EDR #### [facility] [address] [address] [address] Travis Sanchez CBC AUTO DIFFon 06-19-2022 BASO # 0.0 103/ul Normal 0.0-0.1 [facility] Comment on above: Performed By: #### C BC #### [facility] [address] [address] [address] Travis Sanchez Basophils/100 WBC (Bld) 0.1 % Critically low 0.2-2.0 [facility] Comment on above: Performed By: #### C BC #### [facility] [address] [place] [address] Dr. Travis Sanchez EO # 0.0 103/ul Normal 0.0-0.7 [facility] Comment on above: Performed By: #### C BC #### [facility] [address] [place] [address] Dr. Travis Sanchez Eosinophils/100 WBC (Bld) 0.1 % Critically low 0.9-7.0 [facility] Comment on above: Performed By: #### C BC #### [facility] [address] [place] [address] Dr. Travis Sanchez Erythrocyte distribution width (RBC) [Ratio] 13.6 % Normal 11.0-15.0 [facility] Comment on above: Performed By: #### C BC #### [facility] [address] [place] [address] Dr. Travis Sanchez Hematocrit (Bld) [Volume fraction] 41.6 % Critically low 42.0-54.0 [facility] Comment on above: Performed By: #### C BC #### [facility] [address] [place] [address] Dr. Travis Sanchez Hemoglobin (Bld) [Mass/Vol] 13.9 g/dL Critically low 14.0-18.0 [facility] Comment on above: Performed By: #### C BC #### [facility] [address] [place] [address] Dr. Travis Sanchez IG # [email or web address] [id number] Critically high 0.00-0.03 [facility] Comment on above: Performed By: #### C BC #### [facility] [address] [place] [address] Dr. Travis Sanchez IG % 0.5 % Normal 0.0-0.5 [facility] Comment on above: Performed By: #### C BC #### [facility] [facility] [address] [address] [address] Travis Sanchez LYMPH # 1.1 103/ul Critically low 1.2-3.8 [facility] Comment on above: Performed By: #### C BC #### [facility] [address] [address] [address] Travis Sanchez Lymphocytes/100 WBC (Bld) 12.2 % Critically low 20.5-60.0 [facility] Comment on above: Performed By: #### C BC #### [facility] [address] [place] [address] Dr. Travis Sanchez MANUAL DIFF REQ NO Normal [facility] Comment on above: Performed By: #### C BC #### [facility] [address] [place] [address] Dr. Travis Sanchez MCH (RBC) [Entitic mass] 31.2 pg Normal 25.9-34.0 [facility] Comment on above: Performed By: #### C BC #### [facility] [address] [place] [address] Dr. Travis Sanchez MCHC (RBC) [Mass/Vol] 33.4 g/dL Normal 29.9-35.2 [facility] Comment on above: Performed By: #### C BC #### [facility] [address] [place] [address] Dr. Travis Sanchez MCV (RBC) [Entitic vol] 93.3 fL Normal 80.0-94.0 [facility] Comment on above: Performed By: #### C BC #### [facility] [address] [address] [address] Travis Sanchez MONO # 0.5 103/ul Normal 0.3-0.8 [facility] Comment on above: Performed By: #### C BC #### [facility] [address] [place] [address] Dr. Travis Sanchez Monocytes/100 WBC (Bld) 5.3 % Normal 1.7-12.0 [facility] Comment on above: Performed By: #### C BC #### [facility] [address] [address] [address] Travis Sanchez NEUT # 7.5 103/ul Critically high 1.4-6.[address] [facility] Comment on above: Performed By: #### C BC #### [facility] [address] [address] [address] Travis Sanchez Neutrophils/100 WBC (Bld) 81.8 % Critically high 43.0-75.0 [facility] Comment on above: Performed By: #### C BC #### [facility] [address] [address] [address] Travis Sanchez Platelet mean volume (Bld) [Entitic vol] 10.6 fL Normal 9.5-13.5 [facility] Comment on above: Performed By: #### C BC #### [facility] [address] [place] [address] Dr. Travis Sanchez PLT 255 103/ul Normal 150-450 [facility] Comment on above: Performed By: #### C BC #### [facility] [address] [address] [address] Travis Sanchez RBC 4.46 106/ul Critically low 4.70-6.[address] [facility] Comment on above: Performed By: #### C BC #### [facility] [address] [address] [address] Travis Sanchez WBC 9.1 103/ul Normal 4.0-11.0 [facility] Comment on above: Performed By: #### C BC #### [facility] [address] [place] [address] Dr. Travis Sanchez CRPon 06-19-2022 CRP 1.6 mg/dL Critically high <=1.[address] [facility] Comment on above: Performed By: #### S EDR #### [facility] [address] [address] [address] Travis Sanchez PROF CHEM 8 (BAS METB)on Anion gap [Moles/Vol] 13.2 mmol/L Normal [facility] Comment on above: Performed By: #### S EDR #### [facility] [address] [address] [address] Travis Sanchez Calcium [Mass/Vol] 9.3 mg/dL Normal 8.5-10.1 [facility] Comment on above: Performed By: #### S EDR #### [facility] [address] [address] [address] Travis Sanchez Chloride [Moles/Vol] 103 mmol/L Normal 98-107 [facility] Comment on above: Performed By: #### S EDR #### [facility] [address] [address] [address] Travis Sanchez CO2 [Moles/Vol] 24.3 mmol/L Normal 21.0-32.0 [facility] Comment on above: Performed By: #### S EDR #### [facility] [address] [place] [address] Dr. Travis Sanchez Creatinine [Mass/Vol] 0.72 mg/dL Normal 0.70-1.30 [facility] Comment on above: Performed By: #### S EDR #### [facility] [address] [place] [address] Dr. Travis Sanchez EGFR-AF ZAMBIAN >60 Normal >=60 [facility] Comment on above: Performed By: #### S EDR #### [facility] [address] [place] [address] Dr. Travis Sanchez EGFR-NON AF ZAMBIAN >60 Normal >=60 [facility] Comment on above: Performed By: #### S EDR #### [facility] [address] [place] [address] Dr. Travis Sanchez Glucose [Mass/Vol] 290 mg/dL Critically high 74-106 [facility] Comment on above: Performed By: #### S EDR #### [facility] [address] [place] [address] Dr. Travis Sanchez Potassium [Moles/Vol] 4.5 mmol/L Normal 3.5-5.1 [facility] Comment on above: Performed By: #### S EDR #### [facility] [address] [place] [address] Dr. Travis Sanchez Sodium [Moles/Vol] 136 mmol/L Normal 136-145 [facility] Comment on above: Performed By: #### S EDR #### [facility] [address] [place] [address] Dr. Travis Sanchez Urea nitrogen [Mass/Vol] 20.0 mg/dL Critically high 7.0-18.0 [facility] Comment on above: Performed By: #### S EDR #### [facility] [address] [place] [address] Dr. Travis Sanchez Urea nitrogen/Creatinine [Mass ratio] 27.8 mg/mg Normal [facility] Comment on above: Performed By: #### S EDR #### [facility] [address] [place] [address] Dr. Travis Sanchez CBC AUTO DIFFon 06-18-2022 BASO # 0.0 103/ul Normal 0.0-0.1 [facility] Comment on above: Performed By: #### S EDR #### [facility] [address] [place] [address] Dr. Travis Sanchez Basophils/100 WBC (Bld) 0.2 % Normal 0.2-2.0 [facility] Comment on above: Performed By: #### S EDR #### [facility] [address] [place] [address] Dr. Travis Sanchez EO # 0.0 103/ul Normal 0.0-0.7 [facility] Comment on above: Performed By: #### S EDR #### [facility] [address] [place] [address] Dr. Travis Sanchez Eosinophils/100 WBC (Bld) 0.4 % Critically low 0.9-7.0 [facility] Comment on above: Performed By: #### S EDR #### [facility] [address] [place] [address] Dr. Travis Sanchez Erythrocyte distribution width (RBC) [Ratio] 13.9 % Normal 11.0-15.0 [facility] Comment on above: Performed By: #### S EDR #### [facility] [address] [address] [address] Travis Sanchez Hematocrit (Bld) [Volume fraction] 42.0 % Normal 42.0-54.0 [facility] Comment on above: Performed By: #### S EDR #### [facility] [address] [place] [address] Dr. Travis Sanhcez Hemoglobin (Bld) [Mass/Vol] 14.2 g/dL Normal 14.0-18.0 [facility] Comment on above: Performed By: #### S EDR #### [facility] [address] [place] [address] Dr. Travis Sanchez IG # 0.03 10e3/ul Normal 0.00-0.03 [facility] Comment on above: Performed By: #### S EDR #### [facility] [address] [place] [address] Dr. Travis Sanchez IG % 0.4 % Normal 0.0-0.5 [facility] Comment on above: Performed By: #### S EDR #### [facility] [address] [place] [address] Dr. Travis Sanchez LYMPH # 1.7 103/ul Normal 1.2-3.8 [facility] Comment on above: Performed By: #### S EDR #### [facility] [address] [place] [address] Dr. Travis Sanchez Lymphocytes/100 WBC (Bld) 20.7 % Normal 20.5-60.0 [facility] Comment on above: Performed By: #### S EDR #### [facility] [address] [place] [address] Dr. Travis Sanchez MANUAL DIFF REQ NO Normal [facility] Comment on above: Performed By: #### S EDR #### [facility] [address] [place] [address] Dr. Travis Sanchez MCH (RBC) [Entitic mass] 31.8 pg Normal 25.9-34.0 [facility] Comment on above: Performed By: #### S EDR #### [facility] [address] [address] [address] Travis Sanchez MCHC (RBC) [Mass/Vol] 33.8 g/dL Normal 29.9-35.2 [facility] Comment on above: Performed By: #### S EDR #### [facility] [address] [address] [address] Travis Sanchez MCV (RBC) [Entitic vol] 94.0 fL Normal 80.0-94.0 [facility] Comment on above: Performed By: #### S EDR #### [facility] [address] [place] [address] Dr. Travis Sanchez MONO # 0.5 103/ul Normal 0.3-0.8 [facility] Comment on above: Performed By: #### S EDR #### [facility] [address] [place] [address] Dr. Travis Sanchez Monocytes/100 WBC (Bld) 5.9 % Normal 1.7-12.0 [facility] Comment on above: Performed By: #### S EDR #### [facility] [address] [place] [address] Dr. Travis Sanchez NEUT # 5.9 103/ul Normal 1.4-6.5 [facility] Comment on above: Performed By: #### S EDR #### [facility] [address] [place] [address] Dr. Travis Sanchez Neutrophils/100 WBC (Bld) 72.4 % Normal 43.0-75.0 [facility] Comment on above: Performed By: #### S EDR #### [facility] [address] [place] [address] Dr. Travis Sanchez Platelet mean volume (Bld) [Entitic vol] 11.3 fL Normal 9.5-13.5 [facility] Comment on above: Performed By: #### S EDR #### [facility] [address] [place] [address] Dr. Travis Sanchez PLT 236 103/ul Normal 150-450 [facility] Comment on above: Performed By: #### S EDR #### [facility] [address] [address] [address] Travis Sanchez RBC 4.47 106/ul Critically low 4.70-6.10 [facility] Comment on above: Performed By: #### S EDR #### [facility] [address] [address] [address] Travis Sanchez WBC 8.1 103/ul Normal 4.0-11.0 [facility] Comment on above: Performed By: #### S EDR #### [facility] [address] [address] [address] Travis Sanchez CRPon 06-18-2022 CRP 2.9 mg/dL Critically high <=1.[address] [facility] Comment on above: Performed By: #### S EDR #### [facility] [address] [address] [address] Travis Sanchez Covid-19 PCR ([facility])on 06-06 SARS-CoV-2 (COVID-19) RNA ECTOR+probe Ql (Unsp spec) Not detected Normal NOT DETECTED [facility] Comment on above: Result Comment: When [...] for this test is supported by the [place] of [employer] and Human Service's declaration that [...] used). Performed By: #### C BC #### [facility] [address] [address] [address] Travis Sanchez [place] WO CONon 06-19-19 23 MRI [facility] WO CON HISTORY: Right-sided low back pain with radiculopathy for the past 2-3 weeks. The patient was found to have a large disc extrusion at the L4-L5 level on a recent CT scan. MRI [facility] WO CON: 06/18/2022 9:29 AM EDT [...] by: GERTRUDIS CHAUHAN Date: 2022-06-18 13:13 Normal [facility] POINT OF CARE GLUCOSEon 06-06 Glucose [Mass/Vol] 352 mg/dL Critically high -106 [facility] Comment on above: Performed By: #### P OCGLUC #### [facility] [address] [address] [address] Travis Sanchez Glucose [Mass/Vol] 183 mg/dL Critically high [facility]106 [facility] Comment on above: Performed By: #### S EDR #### [facility] [address] [address] [address] Travis Sanchez Glucose [Mass/Vol] 178 mg/dL Critically high [address] [place] [address] Comment on above: Performed By: #### P OCGLUC #### [facility] [address] [address] [address] Travis Sanchez Glucose [Mass/Vol] 252 mg/dL Critically high [facility]106 [facility] Comment on above: Performed By: #### P SASC #### [facility] [address] [address] [address] Travis Sanchez Glucose [Mass/Vol] 272 mg/dL Critically high [address] [place] [address] Comment on above: Performed By: #### S EDR #### [facility] [address] [address] [address] Travis Sanchez PROF CHEM 8 (BAS METB)on Anion gap [Moles/Vol] 15.3 mmol/L Normal [facility] Comment on above: Performed By: #### S EDR #### [facility] [address] [address] [address] Travis Sanchez Calcium [Mass/Vol] 8.6 mg/dL Normal 8.5-10.1 [facility] Comment on above: Performed By: #### S EDR #### [facility] [address] [address] [address] Trvais Sanchez Chloride [Moles/Vol] 102 mmol/L Normal 98-107 [facility] Comment on above: Performed By: #### S EDR #### [facility] [address] [address] [address] Travis Sanchez CO2 [Moles/Vol] 25.1 mmol/L Normal 21.0-32.0 [facility] Comment on above: Performed By: #### S EDR #### [facility] [address] [place] [address] Dr. Travis Sanchez Creatinine [Mass/Vol] 0.84 mg/dL Normal 0.70-1.30 [facility] Comment on above: Performed By: #### S EDR #### [facility] [address] [address] [address] Travis Sanchez EGFR-AF ZAMBIAN >60 Normal >=60 [facility] Comment on above: Performed By: #### S EDR #### [facility] [address] [address] [address] Travis Sanchez EGFR-NON AF ZAMBIAN >60 Normal >=60 [facility] Comment on above: Performed By: #### S EDR #### [facility] [address] [address] [address] Travis Sanchez Glucose [Mass/Vol] 348 mg/dL Critically high 74-106 [facility] Comment on above: Performed By: #### S EDR #### [facility] [address] [address] [address] Travis Sanchez Potassium [Moles/Vol] 4.4 mmol/L Normal 3.5-5.1 [facility] Comment on above: Performed By: #### S EDR #### [facility] [address] [address] [address] Travis Sanchez Sodium [Moles/Vol] 138 mmol/L Normal 136-145 [facility] Comment on above: Performed By: #### S EDR #### [facility] [address] [address] [address] Travis Sanchez Urea nitrogen [Mass/Vol] 14.0 mg/dL Normal 7.0-18.0 [facility] Comment on above: Performed By: #### S EDR #### [facility] [address] [address] [address] Travis Sanchez Urea nitrogen/Creatinine [Mass ratio] 16.7 mg/mg Normal [facility] Comment on above: Performed By: #### S EDR #### [facility] [address] [address] [address] [facility]/hr Critically high <=[address] [facility] Comment on above: Performed By: #### S EDR #### [facility] [address] [place] [address] [place] WO CONon [...] by: ELIUD HERNANDEZ Date: 2022-06-12 18:44 Normal [facility] Ambulatory Visit Summaryon 0 06-11-2022 Ambulatory Visit Summary Normal [facility] Patient Educationon 06-12-[address] [facility] Urology Office/Clinic Noteon 06-11-2022 Urology Office/Clinic Note Normal [facility] Comment on above: Result Comment: Elec tronically Signed By: MARIANA BRIGGS PA-C\.br\Date and Time Signed: 06/11/22 09:07 EDT\.br\Electronically Co-Signed By: Alannah Ragland MA\.br\Date and Time Co-Signed: 06/11/22 09:01 EDT CBC AUTO DIFFon 05-24-2022 BASO # 0.1 103/ul Normal 0.0-0.1 [facility] Comment on above: Performed By: #### C BC #### [facility] [address] [place] [address] Dr. Travis Sanchez Basophils/100 WBC (Bld) 0.4 % Normal 0.2-2.0 [facility] Comment on above: Performed By: #### C BC #### [facility] [address] [place] [address] Dr. Travis Sanchez EO # 0.0 103/ul Normal 0.0-0.7 [facility] Comment on above: Performed By: #### C BC #### [facility] [address] [place] [address] Dr. Travis Sanchez Eosinophils/100 WBC (Bld) 0.3 % Critically low 0.9-7.0 [facility] Comment on above: Performed By: #### C BC #### [facility] [address] [place] [address] Dr. Travis Sanchez Erythrocyte distribution width (RBC) [Ratio] 14.3 % Normal 11.0-15.0 [facility] Comment on above: Performed By: #### C BC #### [facility] [address] [place] [address] Dr. Travis Sanchez Hematocrit (Bld) [Volume fraction] 41.2 % Critically low 42.0-54.0 [facility] Comment on above: Performed By: #### C BC #### [facility] [address] [place] [address] Dr. Travis Sanchez Hemoglobin (Bld) [Mass/Vol] 13.9 g/dL Critically low 14.0-18.0 [facility] Comment on above: Performed By: #### C BC #### [facility] [address] [place] [address] Dr. Travis Sanchez IG # 0.05 10e3/ul Critically high 0.00-0.03 [facility] Comment on above: Performed By: #### C BC #### [facility] [address] [place] [address] Dr. Travis Sanchez IG % 0.4 % Normal 0.0-0.5 [facility] Comment on above: Performed By: #### C BC #### [facility] [address] [place] [address] Dr. Travis Sanchez LYMPH # 1.2 103/ul Normal 1.2-3.8 [facility] Comment on above: Performed By: #### C BC #### [facility] [address] [place] [address] Dr. Travis Sanchez Lymphocytes/100 WBC (Bld) 8.9 % Critically low 20.5-60.0 [facility] Comment on above: Performed By: #### C BC #### [facility] [address] [place] [address] Dr. Travis Sanchez MANUAL DIFF REQ NO Normal [facility] Comment on above: Performed By: #### C BC #### [facility] [address] [place] [address] Dr. Travis Sanchez MCH (RBC) [Entitic mass] 31.5 pg Normal 25.9-34.0 [facility] Comment on above: Performed By: #### C BC #### [facility] [address] [place] [address] Dr. Travis Sanchez MCHC (RBC) [Mass/Vol] 33.7 g/dL Normal 29.9-35.2 [facility] Comment on above: Performed By: #### C BC #### [facility] [address] [place] [address] Dr. Travis Sanchez MCV (RBC) [Entitic vol] 93.4 fL Normal 80.0-94.0 [facility] Comment on above: Performed By: #### C BC #### [facility] [address] [place] [address] Dr. Travis Sanchez MONO # 1.0 103/ul Critically high 0.3-0.8 [facility] Comment on above: Performed By: #### C BC #### [facility] [address] [place] [address] Dr. Travis Sanchez Monocytes/100 WBC (Bld) 7.3 % Normal 1.7-12.0 [facility] Comment on above: Performed By: #### C BC #### [facility] [address] [place] [address] Dr. Travis Sanchez NEUT # 11.4 103/ul Critically high 1.4-6.5 [facility] Comment on above: Performed By: #### C BC #### [facility] [address] [place] [address] Dr. Travis Sanchez Neutrophils/100 WBC (Bld) 82.7 % Critically high 43.0-75.0 [facility] Comment on above: Performed By: #### C BC #### [facility] [address] [place] [address] Dr. Travis Sanchez Platelet mean volume (Bld) [Entitic vol] 11.0 fL Normal 9.5-13.5 [facility] Comment on above: Performed By: #### C BC #### [facility] [address] [place] [address] Dr. Travis Sanchez PLT 262 103/ul Normal 150-450 [facility] Comment on above: Performed By: #### C BC #### [facility] [address] [place], [place] [id number] Dr. Travis Sanchez RBC 4.41 106/ul Critically low 4.70-6.10 [facility] Comment on above: Performed By: #### C BC #### [facility] [address] [place] [address] Dr. Travis Sanchez WBC 13.8 103/ul Critically high 4.0-11.0 [facility] Comment on above: Performed By: #### C BC #### [facility] [address] [place], [place] [address] Dr. Travis Sanchez CRPon 05-24-2022 CRP 16.3 mg/dL Critically high <=1.[address] [facility] Comment on above: Performed By: #### P SASC #### [facility] [address] [place], [place] [address] FACIAL BONES WO [...] by: SEGUN GALLEGOS Date: 2022-05-24 00:14 Normal [facility] LACTATE/LACTIC ACIDon 2022 Lactate [Moles/Vol] 1.3 mmol/L Normal 0.4-2.0 [facility] [place] Comment on above: Performed By: #### C BC #### [facility] [address] [place] [address] Dr. Travis Sanchez POINT OF CARE GLUCOSEon 05-06 Glucose [Mass/Vol] 208 mg/dL Critically high 74-106 [facility] Comment on above: Performed By: #### P SASC #### [facility] [address] [place] [address] Dr. Travis Sanchez PROF CHEM 8 (BAS METB)on Anion gap [Moles/Vol] 13.9 mmol/L Normal [facility] Comment on above: Performed By: #### P SASC #### [facility] [address] [place] [address] Dr. Travis Sanchez Calcium [Mass/Vol] 8.8 mg/dL Normal 8.5-10.1 [facility] Comment on above: Performed By: #### P SASC #### [facility] [address] [place] [address] Dr. Travis Sanchez Chloride [Moles/Vol] 98 mmol/L Normal 98-107 [facility] Comment on above: Performed By: #### P SASC #### [facility] [address] [place] [address] Dr. Travis Sanchez CO2 [Moles/Vol] 25.9 mmol/L Normal 21.0-32.0 [facility] Comment on above: Performed By: #### P SASC #### [facility] [address] [place] [address] Dr. Travis Sanchez Creatinine [Mass/Vol] 0.74 mg/dL Normal 0.70-1.30 [facility] Comment on above: Performed By: #### P SASC #### [facility] [address] [place] [address] Dr. Travis Sanchez EGFR-AF ZAMBIAN >60 Normal >=60 [facility] Comment on above: Performed By: #### P SASC #### [facility] [address] [place] [address] Dr. Travis Sanchez EGFR-NON AF ZAMBIAN >60 Normal >=60 [facility] Comment on above: Performed By: #### P SASC #### [facility] [address] [place] [address] [address] Travis Sanchez Glucose [Mass/Vol] 203 mg/dL Critically high 74-106 T [facility] Comment on above: Performed By: #### P SASC #### [facility] [address] [place] [address] Dr. Travis Sanchez Potassium [Moles/Vol] 3.8 mmol/L Normal 3.5-5.1 [facility] Comment on above: Performed By: #### P SASC #### [facility] [address] [place] [address] [address] Travis Sanchez Sodium [Moles/Vol] 134 mmol/L Critically low 136-145 Th [facility] Comment on above: Performed By: #### P SASC #### [facility] [address] [place] [address] Dr. Travis Sanchez Urea nitrogen [Mass/Vol] 9.0 mg/dL Normal 7.0-18.0 [facility] Comment on above: Performed By: #### P SASC #### [facility] [address] [place] [address] Dr. Travis Sanchez Urea nitrogen/Creatinine [Mass ratio] 12.2 mg/mg Normal [facility] Comment on above: Performed By: #### P [facility] #### [facility] [address] [place], [place] [address] Dr. Travis Sanchez SED RATE WESTERGRENon 2022 SED RATE 61 mm/hr Critically high <=[address] [facility] Comment on above: Performed By: #### S EDR #### [facility] [address] [place], [place] [address] Dr. Travis Sanchez Glucose Glucometer (BldC) [M ass/Vol]Ordered By: Dlel Kim on 04-04-2022 Glucose [Mass/Vol] 144 mg/dL [facility] Comment on above: Random Glucose Refer ence Range is dependent on time and content of last meal. Glucose of more than 200 mg/dL in a nonstressed, ambulatory subject supports the diagnosis of Diabetes Mellitus. Glucose Poct Glucometerson 0 04-04-2022 Glucose [Mass/Vol] 144 mg/dL Normal [facility] Comment on above: Result Comment: [place] om Glucose Reference Range is dependent on time and content of last meal. Glucose of more than 200 mg/dL in a nonstressed, ambulatory subject supports the diagnosis of Diabetes Mellitus. PERFORMED BY: [facility] [address] [facility] [place] [address] PATHOLOGIST SUPERVISOR EVAPORATOR JOSSELYN ROSEN M.D. Performed By: #### G LULS #### Point of Care testing , Glucose Poct Glucometerson 0 04-03-2022 Glucose [Mass/Vol] 143 mg/dL Normal [facility] Comment on above: Result Comment: [place] om Glucose Reference Range is dependent on time and content of last meal. Glucose of more than 200 mg/dL in a nonstressed, ambulatory subject supports the diagnosis of Diabetes Mellitus. PERFORMED BY: [facility] [address] [place] [address] PATHOLOGIST SUPERVISOR EVAPORATOR JOSSELYN ROSEN M.D. Performed By: #### G LULS #### Point of Care testing , Cholesterol [Mass/volume] in Serum or PlasmaOrdered By: Dell Kim on 04-02-2022 Cholesterol [Mass/Vol] 244 mg/dL 140-200 [facility] Comment on above: Chol less than 200 m g/dl low riskChol 201-239 mg/dl borderline riskChol 240 mg/dl and greater high risk Cholesterol in LDL Calc [Mas s/Vol]Ordered By: Dell Kim on 04-02-2022 Cholesterol in LDL [Mass/Vol] [facility] Comment on above: Test not performed Cholesterol in VLDL Calc [Ma ss/Vol]Ordered By: Dell Kim on 04-02-2022 Cholesterol in VLDL [Mass/Vol] [facility] Comment on above: Test not performed Glucose Poct Glucometerson 0 04-02-2022 Commemt1 Glu2: Cleaned Meter Normal [facility] Comment on above: Result Comment: PERF ORMED BY: [place] [address] PATHOLOGIST SUPERVISOR EVAPORATOR JOSSELYN ROSEN M.D. Performed By: #### G LULS ####Point of Care testing, Glucose [Mass/Vol] 239 mg/dL Normal [facility] Comment on above: Result Comment: [facility] Glucose Reference Range is dependent on time and content of last meal. Glucose of more than 200 mg/dL in a nonstressed, ambulatory subject supports the diagnosis of Diabetes Mellitus. Performed By: #### G LULS ####Point of Care testing, LDL Cholesterol Measuredon 0 04-02-2022 LDL Cholesterol Measured 122 mg/dL High 0-100 [facility] Comment on above: Result Comment: LDL ATP III CLASSIFICATION LDL less than 100 mg/dL Optimal LDL 100-129 mg/dL Near or above optimal LDL 130-159 mg/dL Borderline high LDL 160-189 mg/dL High LDL greater than 189 mg/dL Very high Performed By: #### L IPID, [id number], TSH3 wRFLX, LDLD #### [address] Lipid Panelon 04-02-2022 Cholesterol [Mass/Vol] 244 mg/dL High 140-200 [facility] Comment on above: Result Comment: Chol less than 200 mg/dl low risk Chol 201-239 mg/dl borderline risk Chol 240 mg/dl and greater high risk Performed By: #### L IPID, [id number], TSH3 wRFLX, LDLD #### [facility] [address] [place] [id number] [place] Cholesterol in HDL [Mass/Vol] 29 mg/dL Normal 29-71 [facility] Comment on above: Result Comment: HDL CHOL ATP-III CLASSIFICATION Cardiovascular Risk HDL > or equal to 60 mg/dL LOW HDL < 40 mg/dL HIGH Performed By: #### L IPID, [id number], TSH3 wRFLX, LDLD #### [facility] [address] Cholesterol.total/Linette sterol in HDL [Mass ratio] 8.4 {ratio} Normal <5.0 [facility] Comment on above: Performed By: #### L IPID, [id number], TSH3 wRFLX, LDLD #### [facility] [address] [place] [id number] [facility] LDL Cholesterol,Calculated Not performed Normal 0-100 [facility] Comment on above: Performed By: #### L IPID, [id number], TSH3 wRFLX, LDLD #### [facility] [address] [place] [id number] [place] Triglyceride w/Reflex 622 mg/dL High 35-149 [facility] Comment on above: Result Comment: TRIG [...] and resulted. Performed By: #### L IPID, [id number], TSH3 wRFLX, LDLD #### [facility] [address] [place] [id number] [place] VLDL CHOLESTEROL Not performed Normal [facility] Comment on above: Performed By: #### L IPID, [id number], TSH3 wRFLX, LDLD #### [facility] [address] No Panel InformationOrdered By: Dell Kim on 04-02-2022 Bedside Glucose Comment Glu2: cleaned meter [facility] 25-Hydroxy Vitamin D Total < 7.0 ng/mL 30-100 [facility] Comment on above: VITAMIN D STATUS 25( [place])VITAMIN D RANGE (ng/mL) Deficient <20 Insufficient 20 to <30Sufficient 30 to 100Reference: Rosy MF,Byron MENDOZA, Rajinder GALDAMEZ, et al. Evaluation,treatment, and prevention of vitamin D deficiency; an Endocrine Society clinical practice guideline. JCEM. 2010; 96(7):1911-30. Serum or plasma cholesterol in LDL measurement (mass/volume)Ordered By: Dell Kim on 04-02-2022 Cholesterol in LDL [Mass/Vol] 122 mg/dL 0-100 [facility] Comment on above: LDL ATP III CLASSIFI CATIONLDL less than 100 mg/dL OptimalLDL 100-129 mg/dL Near or above optimalLDL 130-159 mg/dL Borderline highLDL 160-189 mg/dL HighLDL greater than 189 mg/dL Very high Serum or plasma high density lipoprotein (HDL) cholesterol measurementOrdered By: Dell Kim on 04-02-2022 Cholesterol in HDL [Mass/Vol] 29 mg/dL 29-71 [facility] Comment on above: HDL CHOL ATP-III CLA SSIFICATION Cardiovascular RiskHDL > or equal to 60 mg/dL LOWHDL < 40 mg/dL HIGH Serum or plasma total choles terol/high density lipoprotein (HDL) cholesterol mass ratOrdered By: Dell Kim on 04-02-2022 Cholesterol.total/Linette sterol in HDL [Mass ratio] 8.4 {ratio} <5.0 [facility] TSH DL <= 0.005 mIU/L QnOrde red By: Dell Kim on 04-02-2022 TSH Qn 1.06 m[IU]/L 0.45-5.33 [facility] Thyroid Stim Hormone w/Rflxo n 04-02-2022 Thyroid Stim Hormone w/Rflx 1.06 u[iU]/mL Normal 0.45-5.33 [facility] Comment on above: Performed By: #### L IPID, [id number], TSH3 wRFLX, LDLD #### [facility] [address] [place] [id number] [facility] Triglyceride [Mass/volume] i n Serum or PlasmaOrdered By: Dell Kim on 04-02-2022 Triglyceride [Mass/Vol] 622 mg/dL 35-149 F [facility] Comment on above: If the triglyceride [...] 25 Hydroxy Total < 7.0 Low 30-100 [facility] Comment on above: Result Comment: SANDRA MIN D STATUS 25([place])VITAMIN D RANGE (ng/mL) Deficient <20 Insufficient 20 to <30 Sufficient 30 to 100 Reference: Rosy MF,Byron NC, Hilario-Alex GALDAMEZ, et al. Evaluation,treatment, and prevention of vitamin D deficiency; an Endocrine Society clinical practice guideline. JCEM. 2010; 96(7):1911-30. PERFORMED BY: [place] [address] PATHOLOGIST SUPERVISOR EVAPORATOR JOSSELYN ROSEN M.D. Performed By: #### L IPID, [id number], TSH3 wRFLX, LDLD #### [facility] [address] [place] [id number] [facility] ACETAMINOPHENon 04-01-2022 Acetaminophen [Mass/Vol] ug/mL Critically low 10.0-30.0 [facility] Comment on above: Performed By: #### C VDTBH #### [facility] [address] [place] [address] [address] Travis Sanchez CBC AUTO DIFFon 04-01-2022 BASO # 0.1 103/ul Normal 0.0-0.1 [facility] Comment on above: Performed By: #### C BC #### [facility] [address] [place] [address] [address] Travis Sanchez Basophils/100 WBC (Bld) 0.8 % Normal 0.2-2.0 [facility] Comment on above: Performed By: #### C BC #### [facility] [address] [place] [address] [address] Travis Sanchez EO # 0.1 103/ul Normal 0.0-0.7 [facility] Comment on above: Performed By: #### C BC #### [facility] [address] [place] [address] Dr. Travis Sanchez Eosinophils/100 WBC (Bld) 1.3 % Normal 0.9-7.0 [facility] Comment on above: Performed By: #### C BC #### [facility] [address] [place] [address] Dr. Travis Sanchez Erythrocyte distribution width (RBC) [Ratio] 14.1 % Normal 11.0-15.0 [facility] Comment on above: Performed By: #### C BC #### [facility] [address] [place] [address] Dr. Travis Sanchez Hematocrit (Bld) [Volume fraction] 47.9 % Normal 42.0-54.0 [facility] Comment on above: Performed By: #### C BC #### [facility] [address] [place] [address] Dr. Travis Sanchez Hemoglobin (Bld) [Mass/Vol] 15.4 g/dL Normal 14.0-18.0 [facility] Comment on above: Performed By: #### C BC #### [facility] [address] [place] [address] Dr. Travis Sanchez IG # 0.03 10e3/ul Normal 0.00-0.03 [facility] Comment on above: Performed By: #### C BC #### [facility] [address] [place] [address] Dr. Travis Sanchez IG % 0.4 % Normal 0.0-0.5 [facility] Comment on above: Performed By: #### C BC #### [facility] [address] [place] [address] Dr. Travis Sanchez LYMPH # 1.7 103/ul Normal 1.2-3.8 [facility] Comment on above: Performed By: #### C BC #### [facility] [address] [place] [address] Dr. Travis Sanchez Lymphocytes/100 WBC (Bld) 22.1 % Normal 20.5-60.0 [facility] Comment on above: Performed By: #### C BC #### [facility] [address] [place] [address] Dr. Travis Sanchez MANUAL DIFF REQ NO Normal [facility] Comment on above: Performed By: #### C BC #### [facility] [address] [place] [address] Dr. Travis Sanchez MCH (RBC) [Entitic mass] 31.5 pg Normal 25.9-34.0 [facility] Comment on above: Performed By: #### C BC #### [facility] [address] [place] [address] Dr. Travis Sanchez MCHC (RBC) [Mass/Vol] 32.2 g/dL Normal 29.9-35.2 [facility] Comment on above: Performed By: #### C BC #### [facility] [address] [place] [address] Dr. Travis Sanchez MCV (RBC) [Entitic vol] 98.0 fL Critically high 80.0-94 .0 [facility] Comment on above: Performed By: #### C BC #### [facility] [address] [place] [address] Dr. Travis Sanchez MONO # 0.5 103/ul Normal 0.3-0.8 [facility] Comment on above: Performed By: #### C BC #### [facility] [address] [place] [address] Dr. Travis Sanchez Monocytes/100 WBC (Bld) 6.2 % Normal 1.7-12.0 [facility] Comment on above: Performed By: #### C BC #### [facility] [address] [place] [address] Dr. Travis Sanchez NEUT # 5.3 103/ul Normal 1.4-6.5 [facility] Comment on above: Performed By: #### C BC #### [facility] [address] [place] [address] Dr. Travis Sanchez Neutrophils/100 WBC (Bld) 69.2 % Normal 43.0-75.0 [facility] Comment on above: Performed By: #### C BC #### [facility] [address] [place] [address] Dr. Travis Sanchez Platelet mean volume (Bld) [Entitic vol] 11.0 fL Normal 9.5-13.5 [facility] Comment on above: Performed By: #### C BC #### [facility] [address] [place] [address] Dr. Travis Sanchez PLT 314 103/ul Normal 150-450 [facility] Comment on above: Performed By: #### C BC #### [facility] [address] [place] [address] Dr. Travis Sanchez RBC 4.89 106/ul Normal 4.70-6.10 [facility] Comment on above: Performed By: #### C BC #### [facility] [address] [place] [address] Dr. Travis Sanchez WBC 7.6 103/ul Normal 4.0-11.0 [facility] Comment on above: Performed By: #### C BC #### [facility] [address] [place] [address] Dr. Travis Sanchez CULTURE URINEon 04-01-2022 CULTURE URINE Culture Observations : NO GROWTH. Normal [facility] Comment on above: Performed By: #### C VDTBH #### [facility] [address] [place] [address] Dr. Travis Sanchez Covid-19 PCR (CVDTB)on 03-09 SARS-CoV-2 (COVID-19) RNA ECTOR+probe Ql (Unsp spec) Not detected Normal NOT DETECTED [facility] Comment on above: Result Comment: When [...] for this test is supported by the [place] of Health and Human Service's declaration that [...] used). Performed By: #### C VDTB #### [facility] [address] [place] [address] Dr. Travis Sanchez DRUG SCREEN RAPID (URINE)on 04-01-2022 AMP Negative Normal NEGATIVE [facility] Comment on above: Performed By: #### C BC #### [facility] [address] [place] [address] Dr. Travis Sanchez BAR Negative Normal NEGATIVE [facility] Comment on above: Performed By: #### C BC #### [facility] [address] [place] [address] Dr. Travis Sanchez BUP Negative Normal NEGATIVE [facility] Comment on above: Performed By: #### C BC #### [facility] [address] [place] [address] Dr. Travis Sanchez BZO Negative Normal NEGATIVE [facility] Comment on above: Performed By: #### C BC #### [facility] [address] [place] [address] Dr. Travis Sanchez JESUS Negative Normal NEGATIVE [facility] Comment on above: Performed By: #### C BC #### [facility] [address] [place] [address] Dr. Travis Sanchez CUT-OFFS SEE BELOW Normal [facility] Comment on above: Result Comment: AMP [...] ng/mL Performed By: #### C BC #### [facility] [address] [place] [address] Dr. Travis Sanchez DRUG CUT HEADER DRUG CLASS TEST SYSTEM CUT-OFF CONCENTRATIONS ARE FOLLOWS: Normal [facility] Comment on above: Performed By: #### C BC #### [facility] [address] [place] [address] Dr. Travis Sanchez mAMP Negative Normal NEGATIVE [facility] Comment on above: Performed By: #### C BC #### [facility] [address] [place] [address] Dr. Travis Sanchez MTD Negative Normal NEGATIVE [facility] Comment on above: Performed By: #### C BC #### [facility] [address] [place] [address] Dr. Travis Sanchez OPI Negative Normal NEGATIVE [facility] Comment on above: Performed By: #### C BC #### [facility] [address] [place] [address] Dr. Travis Sanchez OXY Negative Normal NEGATIVE [facility] Comment on above: Performed By: #### C BC #### [facility] [address] [place] [address] Dr. Travis Sanchez PCP Negative Normal NEGATIVE [facility] Comment on above: Performed By: #### C BC #### [facility] [address] [place] [address] Dr. Travis Sanchez PPX Negative Normal NEGATIVE [facility] Comment on above: Performed By: #### C BC #### [facility] [address] [place] [address] Dr. Travis Sanchez TCA Negative Normal NEGATIVE [facility] Comment on above: Performed By: #### C BC #### [facility] [address] [place] [address] Dr. Travis Sanchez THC Negative Normal NEGATIVE [facility] Comment on above: Performed By: #### C BC #### [facility] [address] [place] [address] Dr. Travis Sanchez ER URINE PROFILEon 3 Bilirubin Ql (U) Negative Normal NEGATIVE [facility] Comment on above: Performed By: #### C BC #### [facility] [address] [place] [address] Dr. Travis Sanchez Clarity (U) CLEAR Normal CLEAR [facility] Comment on above: Performed By: #### C BC #### [facility] [address] [place] [address] Dr. Travis Sanchez Color (U) YELLOW Normal YELLOW [facility] Comment on above: Performed By: #### C BC #### [facility] [address] [place] [address] Dr. Travis Sanchez ERUAHD A micrscopic examination will be performed if indicated. Normal [facility] Comment on above: Performed By: #### C BC #### [facility] [address] [place] [address] Dr. Travis Sanchez Glucose Ql (U) >1000 Abnormal NEGATIVE [facility] Comment on above: Performed By: #### C BC #### [facility] [address] [place] [address] Dr. Travis Sanchez Hemoglobin Ql (U) Negative Normal NEGATIVE [facility] Comment on above: Performed By: #### C BC #### [facility] [address] [place] [address] Dr. Travis Sanchez Ketones Ql (U) TRACE Abnormal NEGATIVE [facility] Comment on above: Performed By: #### C BC #### [facility] [address] [place] [address] Dr. Travis Sanchez LEUKOCYTES Negative Normal NEGATIVE [facility] Comment on above: Performed By: #### C BC #### [facility] [address] [place] [address] Dr. Travis Sanchez Nitrite Ql (U) Negative Normal NEGATIVE [facility] Comment on above: Performed By: #### C BC #### [facility] [address] [place] [address] Dr. Travis Sanchez pH (U) 5.5 [pH] Normal 5-9 [facility] Comment on above: Performed By: #### C BC #### [facility] [address] [place] [address] Dr. Travis Sanchez Protein (U) [Mass/Vol] 100 mg/dL Abnormal NEGAT WILIAN/ TRACE [facility] Comment on above: Performed By: #### C BC #### [facility] [address] [place] [address] Dr. Travis Sanchez SPEC GRAVITY >=1.030 Abnormal 1.005-<=1.0 25 [facility] Comment on above: Performed By: #### C BC #### [facility] [address] [place] [address] Dr. Travis Sanchez UR MICRO IND INDICATED Normal [facility] Comment on above: Performed By: #### C BC #### [facility] [address] [place] [address] Dr. Travis Sanchez Urobilinogen Qn (U) 0.2 {Chintan'U}/dL Normal 0.2 - 1. 0 [facility] Comment on above: Performed By: #### C BC #### [facility] [address] [place] [address] Dr. Travis Sanchez ETHANOL (BLD ALC)on 04-01-19 23 ALC NOTE NOTE: 80 mg/dl is th e legal limit for a blood alcohol level Normal [facility] Comment on above: Performed By: #### E TH #### [facility] [address] [place] [address] Dr. Travis Sanchez Ethanol [Mass/Vol] mg/dL Normal [facility] Comment on above: Performed By: #### E TH #### [facility] [address] [place] [address] Dr. Travis Sanchez PROF 14(COMP METB)on 023 Albumin [Mass/Vol] 3.5 g/dL Normal 3.4-5.0 [facility] Comment on above: Performed By: #### C VDTBH #### [facility] [address] [place] [address] Dr. Travis Sanchez Albumin/Globulin [Mass ratio] 0.9 {ratio} Normal [facility] Comment on above: Performed By: #### C VDTBH #### [facility] [address] [place] [address] Dr. Travis Sanchez ALP [Catalytic activity/Vol] 98 U/L Normal 46-116 [facility] Comment on above: Performed By: #### C VDTBH #### [facility] [address] [place] [address] Dr. Travis Sanchez ALT [Catalytic activity/Vol] 36 U/L Normal 16-63 [facility] Comment on above: Performed By: #### C VDTBH #### [facility] [address] [place] [address] Dr. Travis Sanchez Anion gap [Moles/Vol] 16.8 mmol/L Normal [facility] Comment on above: Performed By: #### C VDTBH #### [facility] [address] [place] [address] Dr. Travis Sanchez AST [Catalytic activity/Vol] 18 U/L Normal 15-37 [facility] Comment on above: Performed By: #### C VDTBH #### [facility] [address] [place] [address] Dr. Travis Sanchez Bilirubin [Mass/Vol] 0.3 mg/dL Normal 0.2-1.0 [facility] Comment on above: Performed By: #### C VDTBH #### [facility] [address] [place] [address] Dr. Travis Sanchez Calcium [Mass/Vol] 9.1 mg/dL Normal 8.5-10.1 [facility] Comment on above: Performed By: #### C VDTBH #### [facility] [address] [address] [address] Travis Sanchez Chloride [Moles/Vol] 101 mmol/L Normal 98-107 [facility] Comment on above: Performed By: #### C VDTBH #### [facility] [address] [address] [address] Travis Sanchez CO2 [Moles/Vol] 22.1 mmol/L Normal 21.0-32.0 [facility] Comment on above: Performed By: #### C VDTBH #### [facility] [address] [address] [address] Travis Sanchez Creatinine [Mass/Vol] 0.81 mg/dL Normal 0.70-1.30 [facility] Comment on above: Performed By: #### C VDTBH #### [facility] [address] [place] [address] Dr. Travis Sanchez EGFR-AF ZAMBIAN >60 Normal >=60 [facility] Comment on above: Performed By: #### C VDTBH #### [facility] [address] [place] [address] Dr. Travis Sanchez EGFR-NON AF ZAMBIAN >60 Normal >=60 [facility] Comment on above: Performed By: #### C VDTBH #### [facility] [address] [place] [address] Dr. Travis Sanchez Globulin (S) [Mass/Vol] 3.7 g/dL Normal [facility] Comment on above: Performed By: #### C VDTBH #### [facility] [address] [place] [address] Dr. Travis Sanchez Glucose [Mass/Vol] 277 mg/dL Critically high 74-106 [facility] Comment on above: Performed By: #### C VDTBH #### [facility] [address] [place] [address] Dr. Travis Sanchez Potassium [Moles/Vol] 3.9 mmol/L Normal 3.5-5.1 [facility] Comment on above: Performed By: #### C VDTBH #### [facility] [address] [place] [address] Dr. Travis Sanchez Protein [Mass/Vol] 7.2 g/dL Normal 6.4-8.2 [facility] Comment on above: Performed By: #### C VDTBH #### [facility] [address] [place] [address] Dr. Travis Sanchez Sodium [Moles/Vol] 136 mmol/L Normal 136-145 [facility] Comment on above: Performed By: #### C VDTBH #### [facility] [address] [place] [address] Dr. Travis Sanchez Urea nitrogen [Mass/Vol] 11.0 mg/dL Normal 7.0-18.0 [facility] Comment on above: Performed By: #### C VDTBH #### [facility] [address] [place] [address] Dr. Travis Sanchez Urea nitrogen/Creatinine [Mass ratio] 13.6 mg/mg Normal [facility] Comment on above: Performed By: #### C VDTBH #### [facility] [address] [place] [address] Dr. Travis Sanchez SALICYLATEon 04-01-2022 SALICYLATE <2.8 Normal <=19.9 [facility] Comment on above: Performed By: #### C VDTBH #### [facility] [address] [place] [address] Dr. Travis Sanchez URINE MICROSCOPIC ONLYon BACTERIA SMALL Abnormal NONE SEEN [facility] Comment on above: Performed By: #### C BC #### [facility] [address] [place] [address] Dr. Travis Sanchez Bacteria identified Cx Nom (U) INDICATED Normal [facility] Comment on above: Performed By: #### C BC #### [facility] [address] [place] [address] Dr. Travis Sanchez CAST SEEN Abnormal NONE SEEN [facility] Comment on above: Performed By: #### C BC #### [facility] [address] [place] [address] Dr. Travis Sanchez Crystals LM Nom (Urine sed) NONE SEEN Normal NONE SEEN [facility] Comment on above: Performed By: #### C BC #### [facility] [address] [place] [address] Dr. Travis Sanchez Epithelial cells LM Ql (Urine sed) MODERATE Abnormal NONE SEEN /RARE [facility] Comment on above: Performed By: #### C BC #### [facility] [address] [place] [address] Dr. Travis Sanchez HYALINE CAST RARE Normal [facility] Comment on above: Performed By: #### C BC #### [facility] [address] [place] [address] Dr. Travis Sanchez MUCOUS MODERATE Abnormal NONE SEEN [facility] Comment on above: Performed By: #### C BC #### [facility] [address] [place] [address] Dr. Travis Sanchez RBC 0-2 Normal 0-2 [facility] Comment on above: Performed By: #### C BC #### [facility] [address] [place] [address] Dr. Travis Sanchez WBC 2-5 Abnormal NONE SEEN [facility] Comment on above: Performed By: #### C BC #### [facility] [address] [place] [address] Dr. Travis Sanchez TESTOSTERONE, TOTALon 2022 Testosterone [Mass/Vol] 240 ng/dL Critically low 264-916 [facility] Comment on above: Result Comment: Adul t male reference interval is based on a population of healthy nonobese males (BMI <30) between 19 and 39 years old. mike Prado.al. JCEM 2017,102;3573-4067. PMID: [id number]. Performed By: #### C BC #### [facility] [address] [place] [address] Dr. Travis Sanchez GLYCOHEMOGLOBIN A1Con 2022 ADA RECOMMENDATION SEE BELOW Normal [facility] Comment on above: Result Comment: ADA RECOMMENDED LIMIT 4.0 - 6.0 ADA THERAPEUTIC TARGET < 7.0 ACTION SUGGESTED > 7.0 Performed By: #### C BC #### [facility] [address] [place], [place] [address] Dr. Travis Sanchez Glucose [Mass/Vol] 212 mg/dL Normal [facility] Comment on above: Performed By: #### C BC #### [facility] [address] [place], [place] [address] Dr. Travis Sanchez HbA1c (Bld) [Mass fraction] 9.0 % Critically high 4.5-6.2 [facility] Comment on above: Performed By: #### C BC #### [facility] [address] [place], [place] [address] Dr. Travis Sanchez [facility] Coding Summary.on 02-19-2022 Coding Summary. Normal [facility] CHEMISTRYOrdered By: SYSTEM SYSTEM on 02-16-2022 Anion gap [Moles/Vol] 16 mmol/L Normal 6 - 16 mEq/L [facility] Remisol Chloride [Moles/Vol] 97 mmol/L Low 101 - 1 11 mmol/L [facility] Remisol CO2 [Moles/Vol] 24 mmol/L Normal 21 - 31 mmol/L [facility] Remisol Potassium [Moles/Vol] 4.2 mmol/L Normal 3.5 - 5.3 mmol/L [facility] Remisol Sodium [Moles/Vol] 133 mmol/L Low 135 - 145 mmol/L [facility] Remisol Lyteson 02-16-2022 Anion gap [Moles/Vol] 16 mmol/L Normal 6-16 [facility] Comment on above: Performed By: #### 2 [id number] ####[facility] [address] [place] [place] [address] Chloride [Moles/Vol] 97 mmol/L Low 101-111 [facility] Comment on above: Performed By: #### 2 [id number] ####[facility] [address] [place] [address] CO2 [Moles/Vol] 24 mmol/L Normal 21-31 [facility] Comment on above: Performed By: #### 2 [id number] ####[facility] [address] [address] Potassium [Moles/Vol] 4.2 mmol/L Normal 3.5-5.3 [facility] Comment on above: Performed By: #### 2 [id number] ####[facility] [address] [place] [address] Sodium [Moles/Vol] 133 mmol/L Low 135-145 [facility] Comment on above: Performed By: #### 2 [id number] ####[facility] [address] [place] [address] Patient Educationon 02-17-[address] [facility] Urology Office/Clinic Noteon 02-16-2022 Urology Office/Clinic Note Normal [facility] Comment on above: Result Comment: Elec tronically Signed By: Patricio CHAKRABORTY MD\.br\Date and Time Signed: 02/16/22 15:06 EST\.br\Electronically Co-Signed By: Germaine Mccain\.br\Date and Time Co-Signed: 02/16/22 15:05 EST Ambulatory Visit Summaryon 1 Ambulatory Visit Summary Normal [facility] Patient Educationon 12-16-[address] [facility] Reminderson 12-15-[address] [facility] Comment on above: Other Comment: in er ror Urology Office/Clinic Noteon 12-15-2021 Urology Office/Clinic Note Normal [facility] Comment on above: Result Comment: Elec tronically Signed By: Patricio CHAKRABORTY MD R\.br\Date and Time Signed: 12/15/21 15:50 EDT\.br\Electronically Co-Signed By: Alannah Ragland MA\.br\Date and Time Co-Signed: 12/15/21 15:45 EDT INSULINon 11-14-2021 Insulin 27.9 uIU/mL Critically high 2.6-24.9 [facility] Comment on above: Performed By: #### S EDR #### [facility] [address] [address] [address] Travis Sanchez CBC AUTO DIFFon 11-13-2021 BASO # 0.0 103/ul Normal 0.0-0.1 [facility] Comment on above: Performed By: #### C BC #### [facility] [address] [address] [address] Travis Sanchez Basophils/100 WBC (Bld) 0.5 % Normal 0.2-2.0 [facility] Comment on above: Performed By: #### C BC #### [facility] [address] [place] [address] Dr. Travis Sanchez EO # 0.1 103/ul Normal 0.0-0.7 [facility] Comment on above: Performed By: #### C BC #### [facility] [address] [place] [address] Dr. Travis Sanchez Eosinophils/100 WBC (Bld) 1.8 % Normal 0.9-7.0 [facility] Comment on above: Performed By: #### C BC #### [facility] [address] [place] [address] Dr. Travis Sanchez Erythrocyte distribution width (RBC) [Ratio] 13.7 % Normal 11.0-15.0 [facility] Comment on above: Performed By: #### C BC #### [facility] [address] [place] [address] Dr. Travis Sanchez Hematocrit (Bld) [Volume fraction] 40.9 % Critically low 42.0-54.0 [facility] Comment on above: Performed By: #### C BC #### [facility] [address] [place] [address] Dr. Travis Sanchez Hemoglobin (Bld) [Mass/Vol] 13.7 g/dL Critically low 14.0-18.0 [facility] Comment on above: Performed By: #### C BC #### [facility] [address] [place] [address] Dr. Travis Sanchez IG # 0.04 10e3/ul Critically high 0.00-0.03 [facility] Comment on above: Performed By: #### C BC #### [facility] [address] [place] [address] Dr. Travis Sanchez IG % 0.7 % Critically high 0.0-0.[address] [facility] Comment on above: Performed By: #### C BC #### [facility] [address] [place] [address] Dr. Travis Sanchez LYMPH # 1.6 103/ul Normal 1.2-3.8 [facility] Comment on above: Performed By: #### C BC #### [facility] [address] [place] [address] Dr. Travis Sanchez Lymphocytes/100 WBC (Bld) 25.8 % Normal 20.5-60.0 [facility] Comment on above: Performed By: #### C BC #### [facility] [address] [place] [address] Dr. Travis Sanchez MANUAL DIFF REQ NO Normal [facility] Comment on above: Performed By: #### C BC #### [facility] [address] [place] [address] Dr. Travis Sanchez MCH (RBC) [Entitic mass] 30.4 pg Normal 25.9-34.0 [facility] Comment on above: Performed By: #### C BC #### [facility] [address] [place] [address] Dr. Travis Sanchez MCHC (RBC) [Mass/Vol] 33.5 g/dL Normal 29.9-35.2 [facility] Comment on above: Performed By: #### C BC #### [facility] [address] [place] [address] Dr. Travis Sanchez MCV (RBC) [Entitic vol] 90.9 fL Normal 80.0-94.0 [facility] Comment on above: Performed By: #### C BC #### [facility] [address] [place] [address] Dr. Travis Sanchez MONO # 0.4 103/ul Normal 0.3-0.8 [facility] Comment on above: Performed By: #### C BC #### [facility] [address] [place] [address] Dr. Travis Sanchez Monocytes/100 WBC (Bld) 6.4 % Normal 1.7-12.0 [facility] Comment on above: Performed By: #### C BC #### [facility] [address] [address] [address] Travis Sanchez NEUT # 4.0 103/ul Normal 1.4-6.5 [facility] Comment on above: Performed By: #### C BC #### [facility] [address] [address] [address] Travis Sanchez Neutrophils/100 WBC (Bld) 64.8 % Normal 43.0-75.0 [facility] Comment on above: Performed By: #### C BC #### [facility] [address] [address] [address] Travis Sanchez Platelet mean volume (Bld) [Entitic vol] 10.4 fL Normal 9.5-13.5 [facility] Comment on above: Performed By: #### C BC #### [facility] [address] [address] [address] Travis Sanchez PLT 271 103/ul Normal 150-450 [facility] Comment on above: Performed By: #### C BC #### [facility] [address] [address] [address] Travis Sanchez RBC 4.50 106/ul Critically low 4.70-6.[address] [facility] Comment on above: Performed By: #### C BC #### [facility] [address] [address] [address] Travis Sanchez WBC 6.1 103/ul Normal 4.0-11.0 [facility] Comment on above: Performed By: #### C BC #### [facility] [address] [address] [address] Travis Sanchez DIRECT LDLon 11-13-2021 Cholesterol in LDL [Mass/Vol] 124 mg/dL Normal [facility] Comment on above: Performed By: #### P SASC #### [facility] [address] [address] [address] Travis Sanchez DLDL NORMAL SEE BELOW Normal [facility] Comment on above: Result Comment: <100 mg/dl OPTIMAL 100 - 129 mg/dl NEAR OR ABOVE OPTIMAL 130 - 159 mg/dl BORDERLINE HIGH 160 - 189 mg/dl HIGH >190 mg/dl VERY HIGH Performed By: #### P SASC #### [facility] [address] [address] [address] Travis Sanchez GLYCOHEMOGLOBIN A1Con 2021 ADA RECOMMENDATION SEE BELOW Normal [facility] Comment on above: Result Comment: ADA RECOMMENDED LIMIT 4.0 - 6.0 ADA THERAPEUTIC TARGET < 7.0 ACTION SUGGESTED > 7.0 Performed By: #### S EDR #### [facility] [address] [address] [address] Travis Sanchez Glucose [Mass/Vol] 223 mg/dL Normal [facility] Comment on above: Performed By: #### S EDR #### [facility] [address] [place] [address] Dr. Travis Sanchez HbA1c (Bld) [Mass fraction] 9.4 % Critically high 4.5-6.2 [facility] Comment on above: Performed By: #### S EDR #### [facility] [address] [address] [address] Travis Sanchez LIPID PROFILEon 11-13-2021 CHOL-HDL RATIO NORM SEE BELOW Normal [facility] [place] Comment on above: Result Comment: 3.3 - 4.4 LOW RISK 4.4 - 7.1 AVERAGE RISK 7.1 - 11.0 MODERATE RISK >11.0 HIGH RISK Performed By: #### C BC #### [facility] [address] [place] [address] Dr. Travis Sanchez Cholesterol [Mass/Vol] 265 mg/dL Critically high <=200 [facility] Comment on above: Performed By: #### C BC #### [facility] [address] [address] [address] Travis Sanchez Cholesterol in HDL [Mass/Vol] 37 mg/dL Critically low 40-60 [facility] Comment on above: Performed By: #### C BC #### [facility] [address] [address] [address] Travis Sanchez Cholesterol.total/Linette sterol in HDL [Mass ratio] 7.2 {ratio} Normal [facility] Comment on above: Performed By: #### C BC #### [facility] [address] [address] [address] Travis Sanchez HDL NORMAL > or = 60 mg/dl - LO W CARDIOVASCULAR RISK <40 mg/dl - HIGH CARDIOVASCULAR RISK Normal [facility] Comment on above: Performed By: #### C BC #### [facility] [address] [address] [address] Travis Sanchez Triglyceride [Mass/Vol] 604 mg/dL Critically high <=150 [facility] Comment on above: Performed By: #### C BC #### [facility] [address] [address] [address] Travis Sanchez VLDL CALC 120.8 mg/dL Normal [facility] Comment on above: Performed By: #### C BC #### [facility] [address] [place] [address] Dr. Travis Sanchez PROF 14(COMP METB)on 022 Albumin [Mass/Vol] 3.8 g/dL Normal 3.4-5.0 [facility] Comment on above: Performed By: #### P SASC #### [facility] [address] [place] [address] Dr. Travis Sanchez Albumin/Globulin [Mass ratio] 1.0 {ratio} Normal [facility] Comment on above: Performed By: #### P SASC #### [facility] [address] [place] [address] Dr. Travis Sanchez ALP [Catalytic activity/Vol] 103 U/L Normal 46-116 [facility] Comment on above: Performed By: #### P SASC #### [facility] [address] [address] [address] Travis Sanchez ALT [Catalytic activity/Vol] 41 U/L Normal 16-63 [facility] Comment on above: Performed By: #### P SASC #### [facility] [address] [place] [address] Dr. Travis Sanchez Anion gap [Moles/Vol] 14.4 mmol/L Normal [facility] Comment on above: Performed By: #### P SASC #### [facility] [address] [address] [address] Travis Sanchez AST [Catalytic activity/Vol] 17 U/L Normal 15-37 [facility] Comment on above: Performed By: #### P SASC #### [facility] [address] [address] [address] Travis Sanchez Bilirubin [Mass/Vol] 0.3 mg/dL Normal 0.2-1.0 [facility] Comment on above: Performed By: #### P SASC #### [facility] [address] [address] [address] Travis Sanchez Calcium [Mass/Vol] 9.1 mg/dL Normal 8.5-10.1 [facility] Comment on above: Performed By: #### P SASC #### [facility] [address] [address] [address] Travis Sanchez Chloride [Moles/Vol] 99 mmol/L Normal 98-107 [facility] Comment on above: Performed By: #### P SASC #### [facility] [address] [address] [address] Travis Sanchez CO2 [Moles/Vol] 25.7 mmol/L Normal 21.0-32.0 [facility] Comment on above: Performed By: #### P SASC #### [facility] [address] [address] [address] Travis Sanchez Creatinine [Mass/Vol] 0.69 mg/dL Critically low 0.70-1.30 [facility] Comment on above: Performed By: #### P SASC #### [facility] [address] [address] [address] Travis Sanchez EGFR-AF ZAMBIAN >60 Normal >=60 [facility] Comment on above: Performed By: #### P SASC #### [facility] [address] [address] [address] Travis Sanchez EGFR-NON AF ZAMBIAN >60 Normal >=60 [facility] Comment on above: Performed By: #### P SASC #### [facility] [address] [address] [address] Travis Sanchez Globulin (S) [Mass/Vol] 3.9 g/dL Normal [facility] Comment on above: Performed By: #### P SASC #### [facility] [address] [address] [address] Travis Sanchez Glucose [Mass/Vol] 269 mg/dL Critically high 74-106 [facility] Comment on above: Performed By: #### P SASC #### [facility] [address] [address] [address] Travis Sanchez Potassium [Moles/Vol] 4.1 mmol/L Normal 3.5-5.1 [facility] Comment on above: Performed By: #### P SASC #### [facility] [address] [address] [address] Travis Sanchez Protein [Mass/Vol] 7.7 g/dL Normal 6.4-8.2 [facility] Comment on above: Performed By: #### P SASC #### [facility] [address] [address] [address] Travis Sanchez Sodium [Moles/Vol] 135 mmol/L Critically low 136-145 [facility] Comment on above: Performed By: #### P SASC #### [facility] [address] [address] [address] Travis Sanchez Urea nitrogen [Mass/Vol] 11.0 mg/dL Normal 7.0-18.0 [facility] Comment on above: Performed By: #### P SASC #### [facility] [address] [address] [address] Travis Sanchez Urea nitrogen/Creatinine [Mass ratio] 15.9 mg/mg Normal [facility] Comment on above: Performed By: #### P SASC #### [facility] [address] [address] [address] Travis Sanchez URIC ACID SERUMon 11-13-2021 Urate [Mass/Vol] 5.5 mg/dL Normal 3.5-7.2 [facility] Comment on above: Performed By: #### C #### [facility] [address] [address] [address] Travis Weems 09-23-2021 CNOV Office Visit (UROLMN ) MANDIENIO Reinoso ([id number]) 1990 M T Date Time Provider Department 09/23/21 4:00 PM TAHIR DEJESUS During your visit today, we recorded the following information about you: Tahir Dejesus MD 10/06/2021 8:48 AM Signed PATIENT: Enio Raymond [id number] REFERRING MD: Self 09/23/2021 Chief Complaint Post op History of Present Illness Enio Raymond is a very pleasant 30 year old male who presents for post op check up Had recent vasectomy from [facility] urologist office with severe scrotal [...] Dr. Tahir Dejesus by Goran Nuñez, medical lab tech instructor, on September 23, 2021 I agree with the Chief Complaint, ROS, and Past Histories independently gathered by the clinical is support analyst including scribe and or medical student and or MIGUEL and or resident or fellow and the remaining scribed note accurately describes my personal service to the patient. Tahir Dejesus MD, MS [facility] Referring Provider: SELF [[id number]] Allergies [...] Status:Closed by HERB TEEKERRI on 10/06/21 Normal [facility] US VENOUS DOPPLER R Fernie US VENOUS [...] by: ELIUD IRIZARRY Date: 2021-09-01 13:01 Normal [facility] CONSULTon 08-13-2021 CONSULT HNO ID: [id number] Author: Angel Nelson MD Service: Urology Author Type: Resident Type: Consults Filed: 08/13/2021 4:55 PM Note Text: [facility] UROLOGY CONSULT NOTE Service Date: 08/13/2021 Service Time: 4:55 PM ASSESSMENT AND PLAN: 30 year old male with history of DM2, recent vasectomy presenting from [facility] urologist's office with c/f Golden's [...] Angel Nelson MD Urology Resident PGY-2 Pager: [phone] For weekend or after hours issues [place] [phone] HPI: Enio Raymond is a 30 year [...] extremity edema LABS: Pending IMAGING: Pending Normal [facility] Glucose Glucometer (dC) [M ass/Vol]Ordered By: Segun Cho on 08-10-2021 Glucose [Mass/Vol] 397 mg/dL [facility] Comment on above: Random Glucose Refer ence Range is dependent on time and content of last meal. Glucose of more than 200 mg/dL in a nonstressed, ambulatory subject supports the diagnosis of Diabetes Mellitus. Glucose Poct Glucometerson 0 08-10-2021 Glucose [Mass/Vol] 397 mg/dL Normal [facility] Comment on above: Result Comment: [facility] Glucose Reference Range is dependent on time and content of last meal. Glucose of more than 200 mg/dL in a nonstressed, ambulatory subject supports the diagnosis of Diabetes Mellitus. PERFORMED BY: [facility] [address] PATHOLOGIST SUPERVISOR EVAPORATOR JOSSELYN ROSEN M.D. Performed By: #### G LULS #### Point of Care testing , US scrotumon 08-10-2021 US scrotum [facility] Main [place] [id number] Ultrasound Report Signed Patient: Enio Raymond MR#: [id number] : 1990 Acct:[id number] Age/Sex: 30 / M ADM Date: 08/10/21 Loc: ER Room: Type: [facility] Attending Dr: Ordering Provider: Segun Cho [...] Estrella Chung M.D.08/10/2021 7:04 PM Dictation Location: [place] [address] Tech: Mariana Caban Transcribed By: PAVEL 08/10/211903 Dictated By: Estrella Chung MD 08/10/211899 Signed By: 08/10/211903 [facility] [address] [address] Ultrasound Report Signed Patient: Enio Raymond MR#: [id number] : 1990 Acct:[id number] Age/Sex: 30 / M ADM Date: 07/31/21 Loc: ER Room: Type: [facility] ER Attending Dr: Ordering Provider: Oliver Diehl [...] Gael Aguilar M.D.08/01/2021 9:01 AM Dictation Location: [place] [address] Tech: [facility] Transcribed By: [facility] 08/01/21900 Dictated By: Gael Aguilar DO 08/01/21 0830 Signed By: 08/01/21 0901 Normal [facility] Urinalysison 08-01-2021 Appearance (U) Clear Normal Clear [facility] Comment on above: Order Comment: Name Collection Type:: Clean-Voided Midstream Performed By: #### U A ####[facility] [id number] [place] [address] [facility] Bilirubin,Urine Negative Normal Negative [facility] Comment on above: Order Comment: Name Collection Type:: Clean-Voided Midstream Performed By: #### U A ####[address] [address] [facility] Color (U) Yellow Normal Yellow [facility] Comment on above: Order Comment: Name Collection Type:: Clean-Voided Midstream Performed By: #### U A ####[address] [address] [facility] Glucose Ql (U) >=1000 High Normal [facility] Comment on above: Order Comment: Name Collection Type:: Clean-Voided Midstream Performed By: #### U A ####[address] [address] [facility] Ketones Ql (U) Trace High Negative [facility] Comment on above: Order Comment: Name Collection Type:: Clean-Voided Midstream Performed By: #### U A ####[address] [address] [facility] Leukocyte esterase Test strip Ql (U) Negative Normal Negative [facility] Comment on above: Order Comment: Name Collection Type:: Clean-Voided Midstream Performed By: #### U A ####[address] [address] [facility] Nitrite,Urine Negative Normal Negative [facility] Comment on above: Order Comment: Name Collection Type:: Clean-Voided Midstream Performed By: #### U A ####[address] [address] [facility] Occult Blood,Urine Negative Normal Negative [facility] Comment on above: Order Comment: Name Collection Type:: Clean-Voided Midstream Result Comment: PERF ORMED BY: [facility] [address] [place] [address] PATHOLOGIST SUPERVISOR EVAPORATOR JOSSELYN ROSEN M.D. Performed By: #### U A ####[address] [address] [facility] pH (U) 6.0 [pH] Normal 5.0-9.0 [facility] Comment on above: Order Comment: Name Collection Type:: Clean-Voided Midstream Performed By: #### U A ####[place] [address] [place] [address] [facility] Protein,Urine Negative Normal Negative [facility] Comment on above: Order Comment: Name Collection Type:: Clean-Voided Midstream Performed By: #### U A ####[place] [address] [place] [address] [facility] Specificy [place],Urine 1.038 High 1.001-1.030 [facility] Comment on above: Order Comment: Name Collection Type:: Clean-Voided Midstream Performed By: #### U A ####[facility] [place] [address] [facility] Urobilinogen,Urine Normal Normal Normal [facility] Comment on above: Order Comment: Name Collection Type:: Clean-Voided Midstream Performed By: #### U A ####[place] [address] [place] [address] [facility] Bilirubin Test strip Ql (U)O rdered By: Oliver Diehl on 07-31-2021 Bilirubin Ql (U) Negative Negative [facility] Color Auto (U)Ordered By: Myles Diehl on 07-31-2021 Color (U) Yellow Yellow [facility] Ketones Auto test strip (U) [Mass/Vol]Ordered By: Oliver Diehl on 07-31-2021 Ketones (U) [Mass/Vol] Trace Negative [facility] Nitrite Test strip Ql (U)Ord ered By: Oliver Diehl on 07-31-2021 Nitrite Ql (U) Negative Negative [facility] Protein Auto test strip (U) [Mass/Vol]Ordered By: Oliver Diehl on 07-31-2021 Protein (U) [Mass/Vol] Negative Negative [facility] Specific gravity Auto test s trip (U) [Rel density]Ordered By: Oliver Diehl on 07-31-2021 Specific gravity (U) [Rel density] 1.038 1.001-1.030 [facility] Urine clarity by refractomet ry automatedOrdered By: Oliver Diehl on 07-31-2021 Clarity Refractometry automated (U) Clear Clear [facility] Urine glucose measurement by automated test strip (mass/volume)Ordered By: Oliver Diehl on 07-31-2021 Glucose Auto test strip (U) [Mass/Vol] >=1000 mg/dL Normal [facility] Urine hemoglobin detection b y automated test stripOrdered By: Oliver Diehl on 07-31-2021 Hemoglobin Auto test strip Ql (U) Negative Negative [facility] Urine leukocyte esterase det ection by automated test stripOrdered By: Oliver Diehl on 07-31-2021 Leukocyte esterase Auto test strip Ql (U) Negative Negative [facility] Urobilinogen Auto test strip (U) [Mass/Vol]Ordered By: Oliver Diehl on 07-31-2021 Urobilinogen (U) [Mass/Vol] Normal mg/dL Normal [facility] pH Auto test strip (U)Ordere d By: Oliver Diehl on 07-31-2021 pH (U) 6.0 [pH] 5.0-9.0 [facility] Grey 07-25-2021 L - -------- Specimen: [id number] Received: 07/25/21 Status: NIRAV Jacinto Num: [id number] Spec Type: Surgical Subm Dr: Patricio Chakraborty MD Tissues: A VAS DEFERENS - sterilization (LT) B VAS DEFERENS - sterilization (RT) Procedures: HE Stain/2, Gross/Micro L2/2 -------- Patient Age/Sex Location Account Attending Physician -------- Enio Raymond 30/M [place] [id number] Patricio Chakraborty MD -------- SPEC NUM: [id number] RECD: 07/25/21 STATUS: NIARV BENNETT NUM: [id number] RACHEL: 07/25/21- [facility] DR: Patricio Chakraborty MD ENTERED: 07/25/21 [facility] DR: D[facility] SPEC TYPE: Surgical DEPT: S ORDERED: [...] Specimen: Received: 07/25/21 Status: NIRAV Bennett Num: [id number] Spec Type: Surgical Subm Dr: Patricio Chakraborty MD Tissues: A VAS DEFERENS - sterilization (LT) B VAS DEFERENS - sterilization (RT) Procedures: JOSH Stain/2, Gross/Micro L2/2 -------- Patient: Enio Raymond [id number] (Continued) -------- Specimen: Received: 07/25/21 (Continued) Signed (signature on file) Josselyn Rosen MD 07/28/21 1753 -------- Specimen: Received: 07/25/21 Status: NIRAV Bennett Num: [id number] Spec Type: Surgical Subm Dr: Patricio Chakraborty MD Tissues: A VAS DEFERENS - sterilization (LT) B VAS DEFERENS - sterilization (RT) Procedures: HE Stain/2, Gross/Micro L2/2 -------- Patient: Enio Raymond [id number] (Continued) -------- Specimen: [id number] Received: 07/25/21 (Continued) Microscopic Description A. One glass slide with H E stained material has been examined. The microscopic findings support the above pathologic diagnosis. B. One glass slide with H E stained material has been examined. The microscopic findings support the above pathologic diagnosis. [id number] -------- -------- Specimen: [id number] Received: 07/25/21 Status: NIRAV Bennett Num: [id number] Spec Type: Surgical Subm Dr: Patricio Chakraborty MD Tissues: A VAS DEFERENS - sterilization (LT) B VAS DEFERENS - sterilization (RT) Procedures: HE Stain/2, Gross/Micro L2/2 -------- Patient: Enio Raymond [id number] (Continued) -------- Signed (signature on file) Josselyn Rosen MD 07/28/21 0628 [facility] COVID Quick Testingon 2020 Result Negative [employer] Other Covid-19 PCRon 01-21-2021 SARS-CoV-2 (COVID-19) RNA ECTOR+probe Ql (Unsp spec) Not detected [employer] Other Covid-19 PCR [employer] Other Vital Signs Date Time Vital Sign Value Performing Clinician Facility 11-23-2022 11:43-0400 Blood Pressure Location Patricio CHAKRABORTY [facility] 11-23-2022 11:43-0400 Diastolic blood pressure 74 mm[Hg] Patricio CHAKRABORTY [facility] 11-23-2022 11:43-0400 Heart rate 80 /min Patricio CHAKRABORTY [facility] 11-23-2022 11:43-0400 Respiratory rate 16 /min Patricio CHAKRABORTY [facility] 11-23-2022 11:43-0400 Systolic blood pressure 120 mm[Hg] Patricio CHAKRABORTY [facility] 07-13-2022 14:00-0400 Body temperature 97.7 [degF] Ronobir YURIDIA [facility] 07-13-2022 14:00-0400 Diastolic blood pressure 73 mm[Hg] Ronobir YURIDIA [facility] 07-13-2022 14:00-0400 Heart rate 82 /min Ronobir YURIDIA [facility] 07-13-2022 14:00-0400 Respiratory rate 17 /min Ronobir YURIDIA [facility] 07-13-2022 14:00-0400 SaO2% (BldA) [Mass fraction] 95 % Ronobir YURIDIA [facility] 07-13-2022 14:00-0400 Systolic blood pressure 115 mm[Hg] Ronobir YURIDIA [facility] 07-13-2022 12:53-0400 Hourly Rounding Ronobir YURIDIA [facility] 07-13-2022 12:53-0400 Promise to Return Ronobir YURIDIA [facility] 07-13-2022 11:00-0400 gluc 292 mg/dL Ronobir YURIDIA [facility] 07-13-2022 11:00-0400 Hourly Rounding Ronobir YURIDIA [facility] 07-13-2022 11:00-0400 Promise to Return Ronobir YURIDIA [facility] 07-13-2022 10:00-0400 Hourly Rounding Ronobir YURIDIA [facility] 07-13-2022 10:00-0400 Promise to Return Ronobir YURIDIA [facility] 07-13-2022 09:29-0400 Diastolic blood pressure 70 mm[Hg] Ronobir YURIDIA [facility] 07-13-2022 09:29-0400 Systolic blood pressure 108 mm[Hg] Ronobir YURIDIA [facility] 07-13-2022 08:00-0400 Heart rate 77 /min Ronobir YURIDIA [facility] 07-13-2022 08:00-0400 Mean blood pressure 83 mm[Hg] Ronobir YURIDIA [facility] 07-13-2022 08:00-0400 Respiratory rate 18 /min Ronobir YURIDIA [facility] 07-13-2022 08:00-0400 SaO2% (BldA) [Mass fraction] 96 % Ronobir YURIDIA [facility] 07-13-2022 07:00-0400 gluc 238 mg/dL Ronobir YURIDIA [facility] 07-12-2022 20:24-0400 Heart rate 85 /min Ronobir YURIDIA [facility] 07-12-2022 20:23-0400 Mean blood pressure 89 mm[Hg] Ronobir YURIDIA [facility] 07-12-2022 20:23-0400 Body temperature 97.88 [degF] Ronobir YURIDIA [facility] 07-12-2022 17:00-0400 Mean blood pressure 88 mm[Hg] Ronobir YURIDIA [facility] 07-12-2022 17:00-0400 Body temperature 97.52 [degF] Ronobir YURIDIA [facility] 07-12-2022 16:20-0400 Mean blood pressure 93 mm[Hg] Ronobir YURIDIA [facility] 07-12-2022 12:38-0400 Respiratory rate 16 /min Ronobir YURIDIA [facility] 07-12-2022 00:44-0400 Heart rate 105 /min Ronobir YURIDIA [facility] 07-12-2022 00:00-0400 Mean blood pressure 97 mm[Hg] Ronobir YURIDIA [facility] 07-11-2022 23:00-0400 Mean blood pressure 82 mm[Hg] Ronobir YURIDIA [facility] 07-11-2022 20:13-0400 Heart rate 119 /min Ronobir YURIDIA [facility] 07-11-2022 20:10-0400 gluc 317 mg/dL Ronobir YURIDIA [facility] 07-11-2022 20:10-0400 gluc Ronobir YURIDIA [facility] 06-11-2022 08:45-0400 Blood Pressure Location MARIANA BRIGGS [facility] 06-11-2022 08:45-0400 Diastolic blood pressure 82 mm[Hg] MARIANA BRIGGS [facility] 06-11-2022 08:45-0400 Heart rate 88 /min MARIANA BRIGGS [facility] 06-11-2022 08:45-0400 Systolic blood pressure 132 mm[Hg] MARIANA BRIGGS [facility] 04-04-2022 07:30-0500 Body temperature 97.4 [degF] PHYSICIAN NO [facility] 04-04-2022 07:30-0500 Diastolic blood pressure 111 mm[Hg] PHYSICIAN NO [facility] 04-04-2022 07:30-0500 Heart rate 100 /min PHYSICIAN NO [facility] 04-04-2022 07:30-0500 SaO2% (BldA) [Mass fraction] 97 % PHYSICIAN NO [facility] 04-04-2022 07:30-0500 Systolic blood pressure 175 mm[Hg] PHYSICIAN NO [facility] 04-03-2022 20:25-0500 Respiratory rate 16 /min PHYSICIAN NO [facility] 04-02-2022 16:30-0500 Body height 193.04 cm PHYSICIAN NO [facility] 04-01-2022 19:34-0500 Body weight 184.61 kg PHYSICIAN NO [facility] 12-15-2021 14:10-0400 Blood Pressure Location Patricio CHAKRABORTY [facility] 12-15-2021 14:10-0400 Diastolic blood pressure 87 mm[Hg] Patricio CHAKRABORTY [facility] 12-15-2021 14:10-0400 Heart rate 75 /min Patricio CHAKRABORTY [facility] 12-15-2021 14:10-0400 Respiratory rate 16 /min Patricio CHAKRABORTY [facility] 12-15-2021 14:10-0400 Systolic blood pressure 137 mm[Hg] Patricio CHAKRABORTY [facility] 10-06-2021 11:21-0400 Blood Pressure Location Patricio CHAKRABORTY [facility] 10-06-2021 11:21-0400 Diastolic blood pressure 81 mm[Hg] Patricio CHAKRABORTY [facility] 10-06-2021 11:21-0400 Heart rate 104 /min Patricio CHAKRABORTY [facility] 10-06-2021 11:21-0400 Respiratory rate 16 /min Patricio CHAKRABORTY [facility] 10-06-2021 11:21-0400 Systolic blood pressure 125 mm[Hg] Patricio CHAKRABORTY [facility] 08-10-2021 17:39-0400 Body height 190.5 cm Jackelin Hale Work Phone: [facility] 08-10-2021 17:39-0400 Body mass index (BMI) [Ratio] 51 kg/m2 Jackelin Aichholz Work Phone: [facility] 08-10-2021 17:39-0400 Body temperature 98.5 [degF] Jackelin Aichholz Work Phone: [facility] 08-10-2021 17:39-0400 Body weight 185 kg Jackelin Aichholz Work Phone: [facility] 08-10-2021 17:39-0400 Diastolic blood pressure 81 mm[Hg] Jackelin Aichholz Work Phone: [facility] 08-10-2021 17:39-0400 Heart rate 122 /min Jackelin Aichholz Work Phone: [facility] 08-10-2021 17:39-0400 Respiratory rate 23 /min Jackelin Aichholz Work Phone: [facility] 08-10-2021 17:39-0400 SaO2% (BldA) [Mass fraction] 96 % Jackelin Aichholz Work Phone: [facility] 08-10-2021 17:39-0400 Systolic blood pressure 134 mm[Hg] Jackelin Aichholz Work Phone: [facility] 07-31-2021 22:13-0400 Body temperature 98.5 [degF] Jackelin Aichholz Work Phone: [facility] 07-31-2021 22:13-0400 Diastolic blood pressure 109 mm[Hg] Jackelin Aichholz Work Phone: [facility] 07-31-2021 22:13-0400 Heart rate 115 /min Jackelin Aichholz Work Phone: [facility] 07-31-2021 22:13-0400 Respiratory rate 22 /min Jackelin Aichholz Work Phone: [facility] 07-31-2021 22:13-0400 SaO2% (BldA) [Mass fraction] 95 % Jackelin Aichholz Work Phone: [facility] 07-31-2021 22:13-0400 Systolic blood pressure 177 mm[Hg] Jackelin Darlynholz Work Phone: [facility] 07-31-2021 22:12-0400 Body height 190.5 cm Jackelin Warrenhholz Work Phone: [facility] 07-31-2021 22:12-0400 Body mass index (BMI) [Ratio] 51.7 kg/m2 Jackelinkemar Kelleyhholz Work Phone: [facility] 07-31-2021 22:12-0400 Body weight 188 kg Jackelin Santizoholz Work Phone: [facility] 03-24-2021 12:30-0500 Body height 190.5 cm Shruthi Analilia Other [employer] Other 03-24-2021 12:30-0500 Body temperature 96 [degF] Shruthi Analilia Other [employer] Other 03-24-2021 12:30-0500 SaO2% (BldA) [Mass fraction] 98 % Shruthi Analilia Other [employer] Other 01-21-2021 11:15-0500 Body height 190.5 cm Bailey Ginty Other [employer] Other 01-21-2021 11:15-0500 Body mass index (BMI) [Ratio] 49.99 kg/m2 Bailey Ginty Other [employer] Other 01-21-2021 11:15-0500 Body temperature 98.1 [degF] Bailey Ginty Other [employer] Other 01-21-2021 11:15-0500 Body weight 181.44 kg Bailey Guilherme Other [employer] Other 01-21-2021 11:15-0500 SaO2% (BldA) [Mass fraction] 94 % Bailey Vanegas Other [employer] Other Encounters Encounter Date Encounter Type Care Provider Facility Start: 03-29-2023 ambulatory Patricio CHAKRABORTY Facili ty:[facility] [place] Start: 03-29-2023 End: 03-29-2023 Patient encounter procedure Patricio CHAKRABORTY [facility] [place] Start: 11-23-2022 End: 11-24-2022 ambulatory Patricio CHAKRABORTY Facility:[facility] [place] Start: 11-23-2022 End: 11-23-2022 Patient encounter procedure Patricio CHAKRABORTY [facility] [employer] Start: 08-17-2022 End: 08-18-2022 ambulatory Patricio CHAKRABORTY Facility:[facility] [place] Start: 08-04-2022 ambulatory SHRUTHI DÍAZ Facility: Start: 07-14-2022 ambulatory SHRUTHI DÍAZ Facility: Start: 07-11-2022 End: 07-13-2022 ambulatory Wilian SHI Facility:[facility] Start: 07-11-2022 End: 07-13-2022 Observation Wilian SHI [facility] Start: 07-07-2022 End: 07-07-2022 ambulatory SHRUTHI [...] procedure MARIANA E CHESTER [facility] [place] Start: 05-23-2022 End: 05-24-2022 ambulatory NOLAN FRANSISCO Facility:[facility] Start: 05-04-2022 ambulatory SHRUTHI DÍAZ Facility: [facility] Start: 04-01-2022 End: 04-04-2022 Evaluation and management of inpatient Dell Kim Facility:[facility] Start: 04-01-2022 End: 04-04-2022 Evaluation and management of inpatient PHYSICIAN MARC [facility] [place] [address] Work Phone: Start: 04-01-2022 End: 04-01-2022 ambulatory LUANN SEYMOUR Facility:[facility] Start: 03-17-2022 End: 03-18-[address] GERTRUDIS PINA . Facility:[facility] Start: 02-16-2022 End: 02-17-2022 ambulatory Patricio CHAKRABORTY Facility:[facility] Start: 02-16-2022 End: 02-16-2022 Lab Drop off Patricio HCAKRABORTY [facility] Start: 02-16-2022 End: 02-17-2022 ambulatory Patricio CHAKRABORTY [place]: [place] Start: 02-16-2022 End: 02-16-2022 Patient encounter procedure Patricio CHAKRABORTY [facility] [place] Start: 01-06-2022 End: 02-04-2022 ambulatory SHAIKH Patience MOSER Facility:[facility] Start: 12-15-2021 End: 10-11-2022 ambulatory Patricio CHAKRABORTY Facility:[facility] [place] Start: 12-15-2021 End: 12-15-2021 Patient encounter procedure Patricio Vidales CHAKRABORTY [facility] Start: 12-07-2021 End: 01-05-2022 ambulatory SHRUTHI DÍAZ [...] with patient Viktor Gilbert MD Work Phone: [facility] Start: 10-09-2021 ambulatory RECEIVING BARN CUSTODIAN JACKELIN GEOFFREY Facil ity:[facility] Start: 10-06-2021 End: 10-06-2021 Patient encounter procedure Patricio Vidales CHAKRABORTY [facility] Start: 10-06-2021 End: 11-05-2021 ambulatory Patience SHANTI Facility:[facility] Start: 09-23-2021 End: 09-23-2021 Patient encounter procedure Tahir Dejesus MD Work Phone: Urology Comment on above: Vasectomy status (Pr imary Dx) Start: 09-23-2021 End: 09-24-2021 ambulatory Tahir Dejesus MD Work Phone: Urology Start: 09-10-2021 Telephone encounter [facility] & Comment on above: Returning Patient's Call Start: 09-05-2021 End: 10-03-2021 ambulatory RECEIVING BARN CUSTODIAN JACKELIN WARRENPatienceADALI Facility:[facility] Start: 09-02-2021 End: 09-05-2021 ambulatory SHAIKH Patience MOSER Facility:[facility] Start: 09-01-2021 End: 09-02-2021 ambulatory RECEIVING BARN CUSTODIAN JACKELIN HALE Facility:[facility] Start: 08-13-2021 End: 08-13-2021 Patient encounter procedure Patricio Sobeida PALMER [facility] [place] Start: 08-10-2021 End: 08-10-2021 Emergency department patient visit PHYSICIAN NO FAMILY Facility:[facility] Start: 08-10-2021 End: 08-10-2021 Emergency department patient visit Jackelin Geoffrey Work Phone: [facility]Emergency Room Start: 08-01-2021 End: 08-01-2021 Emergency department patient visit PHYSICIAN NO FAMILY Facility:[facility] Start: 07-31-2021 End: 07-31-2021 Emergency department patient visit Jackelin Warrenpatienceadali Work Phone: [facility]-Emergency Room Start: 07-25-2021 End: 07-25-2021 ambulatory Patricio Chakraborty Facility:[facility] Start: 07-25-2021 End: 07-25-2021 Departed Referred Jackelin Geoffrey Work Phone: [facility] Main [place] Start: 03-24-2021 End: 03-24-2021 ambulatory Shruthi Billingsley Other [employer] Other Start: 03-24-2021 Office outpatient vi sit 15 minutes Shruthi Billingsley [facility] Start: 01-23-2021 End: 01-23-2021 ambulatory Bailey Ginty Other [employer] Other Start: 01-23-2021 Telephone encounter Bailey Ginty [facility] Start: 01-21-2021 End: 01-21-2021 ambulatory Bailey Ginty Other [facility] [employer] Other Start: 01-21-2021 Office outpatient vi sit 15 minutes Bailey Vanegas [facility] Procedures Date Procedure Procedure Detail Performing Clinician Start: 11-13-2021 PSA screening NOE HALE Comment on above: Performed By: #### P [facility] #### [facility] [address] [place] [address] Dr. Travis Sanchez Start: 08-13-2021 H/O: vasectomy [...] Date Care Activity Detail Author Start: 04-04-2022 [facility] Start: 04-01-2022 Referral to Service Unit Operator [facility] Start: 04-01-2022 Hospital admission [facility] Start: 11-06-2021 Influenza vaccination INFLUENZA (#1) [facility] Start: 07-31-2021 Echography of scrotu m and contents US scrotum [facility] Start: 12-14-2007 HEPATITIS B (1 of 3 - Risk 3-dose series) HEPATITIS B (1 of 3 - Risk 3-dose series) [facility] Start: 12-14-2007 Urine microalbumin profile DTAP,TDAP,TD (1 - Tdap) [facility] Start: 2006 ANNUAL PCP TEAM SERVICE COORDINATOR JULIÁN DISEASE VISIT ANNUAL PCP TEAM CHRONIC DISEASE VISIT [facility] Start: 2006 Hepatitis B surface antibody level LDL CHOLESTEROL [facility] Start: 2006 HEPATITIS C SCREENING HEPATITIS C SC REENING [facility] Start: 2006 HIV SCREENING HIV SCREENING [facility] Start: 1998 3 comp foot exam completed DIABETIC FOOT EXAM [facility] Start: 1998 Hepatitis B screening URINE AL BUMIN:CREATININE RATIO [facility] Start: 1998 Hepatitis C antibody , confirmatory test DILATED RETINAL EXAM [facility] Start: 1994 PNEUMOCOCCAL (1 - PCV) PNEUMOCOCCAL (1 - PCV) [facility] Start: 1993 Hemoglobin A1c/Hemoglobin.total in Blood HBA1C [facility] Start: 06-13-1989 COVID-19 VACCINE (#1) COVID-19 VACCI NE (#1) [facility] Start: 1988 HEPATITIS B (1 of 3 - 3-dose series) HEPATITIS B (1 of 3 - 3-dose series) [facility] Patient Education [facility] Work Phone: Patient referral [facility] Work Phone: URINALYSIS, REFLEX MICROSCOPIC URINALYSIS, REFLEX MICROSCOPIC Lab Routine Screening for genitourinary condition Ordered: 09/23/2021 [facility] Work Phone: Comment on above: Ordered: 09/23/2021 [facility] Immunizations Immunization Date Immunization Notes Care Provider Salima eason 03-16-2006 tetanus toxoid, redu sindy diphtheria toxoid, and acellular pertussis vaccine, adsorbed MARIANA CHESTER [facility] 07-19-2001 measles, mumps and rubella virus vaccine MARIANA CHESTER [facility] 10-28-1994 DTaP, unspecified formulation MARIANA CHESTER [facility] 06-24-1990 Hib, unspecified formulation MARIANA CHESTER [facility] 03-18-1990 Hib, unspecified formulation MARIANA BRIGGS [facility] 03-18-1990 measles, mumps and rubella virus vaccine MARIANA BRIGGS [facility] Payers Date Payer Category Payer Medicaid [place] [employer] [employer] [id number] 2019-Present [phone] [address] [place] [address] Medicaid [id number] 2019 Medicaid [place] [employer] [id number] 2019-Present [phone] [address] [place] [address] 76326 Medicaid [id number] 1988 Unknown [id number] 2.16.840.1.672524.3.579.2.5 93 1988 Unknown [id number] 2.16.840.1.123749.3.579.2.5 93 1988 Unknown [id number] 2.16.840.1.703184.3.579.2.5 93 1988 Unknown [id number] 2.16.840.1.786611.3.579.2.5 93 1988 Unknown [id number] 2.16.840.1.028951.3.579.2.5 93 1988 Unknown [id number] 2.16.840.1.247015.3.579.2.5 93 1988 Unknown [id number] 2.16.840.1.828566.3.579.2.5 93 1988 Unknown [id number] 2.16.840.1.010275.3.579.2.5 93 1988 Unknown [id number] 2.16.840.1.394688.3.579.2.5 93 1988 Unknown [id number] 2.16.840.1.151349.3.579.2.5 93 1988 Unknown [id number] 2.16.840.1.585290.3.579.2.5 93 1988 Unknown [id number] 2.16.840.1.884434.3.579.2.5 93 1988 Unknown [id number] 2.16.840.1.508198.3.579.2.5 93 1988 Unknown [id number] 2.16.840.1.510998.3.579.2.5 93 1988 Unknown [id number] 2.16.840.1.248210.3.579.2.5 93 1988 Unknown [id number] 2.16.840.1.118275.3.579.2.5 93 1988 Unknown [id number] 2.16.840.1.421853.3.579.2.5 93 1988 Unknown [id number] 2.16.840.1.088048.3.579.2.5 93 1988 Unknown [id number] 2.16.840.1.346484.3.579.2.5 93 1988 Unknown [id number] 2.16.840.1.100781.3.579.2.5 93 1988 Unknown [id number] 2.16.840.1.208941.3.579.2.5 93 1988 Unknown [id number] 2.16.840.1.607288.3.579.2.7 27 1988 Unknown [id number] 2.16.840.1.305025.3.579.2.7 27 1988 Unknown [id number] 2.16.840.1.684468.3.579.2.7 27 1988 Unknown [id number] 2.16.840.1.899846.3.579.2.7 27 1988 Unknown [id number] 2.16.840.1.912982.3.579.2.7 27 1988 Unknown [id number] 2.16.840.1.377921.3.579.2.7 27 1988 Unknown [id number] 2.16.840.1.505305.3.579.2.7 27 1988 Unknown [id number] 2.16.840.1.084474.3.579.2.7 27 1959 Medicaid [id number] 1961 Self-pay [id number] Unknown [employer] BC/BS [id number] Unknown [id number] 2.16.840.1.346601.19 Unknown [id number] 2.16.840.1.397358.3.579.2.5 31 Unknown [id number] 2.16.840.1.100659.3.579.2.5 31 Unknown [id number] 2.16.840.1.614663.3.579.2.5 31 Unknown [id number] 2.16.840.1.122323.3.579.2.5 31 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 [employer] [facility] [id number] Social History Date Type Detail Facility Start: 10-06-2020 [facility] Start: 10-07-2003 End: 10-06-2020 History of tobacco use [employer] Other Start: 1990 Sex Assigned At Male F [facility] Start: 06-09-2021 End: 02-16-2022 Tobacco smoking status Light tobacco smoker (finding) [facility] Tobacco smoking status Smokeless tobacco user within last 30 days [facility] Start: 07-31-2021 End: 04-02-2022 Tobacco smoking status NHIS Smoker (finding) [facility] Start: 08-13-2021 Tobacco [facility] Sm[facility] tobacco daily [facility] History of tobacco use Cigarette Smoker [facility] Start: 08-13-2021 Cigarettes smoked current (pack per day) - Reported 0.5 [facility] Start: 08-18-2021 End: 10-30-2021 Alcohol intake Lifetime non-drinker (finding) [facility] Start: 08-13-2021 History SDOH Alcohol Frequency 1 [facility] Start: 1990 Sex Assigned At Not on file C [facility] Start: 08-18-2021 End: 09-23-2021 Exposure to SARS-CoV-2 (event) Not sure [facility] Start: 10-07-2021 End: 10-17-2021 Exposure to SARS-CoV-2 (event) Unable to assess [facility] Start: 11-23-2022 Tobacco smoking status Never s moked tobacco (finding) [facility] Goals Date Patient Goal Desired Activity /State Functional Status Date Assessment Result Facility 11-23-2022 Functional Status N/A [facility] 07-12-2022 Functional Status No [facility] 07-11-2022 Functional Status [facility] 06-11-2022 Functional Status N/A [facility] 04-04-2022 Functional status Patient at Baseline [facility] Work Phone: 02-16-2022 Functional Status N/A [facility] 12-15-2021 Functional Status N/A [facility] 10-06-2021 Functional Status N/A [facility] Mental Status Date Assessment Result Facility 04-04-2022 Cognitive function Cognitive Sta tus Patient at Baseline [facility] Work Phone: Clinical Notes 01-21-2021 to 11-23-2022 [...] therapy. Follow these instructions at home: Take ukpw-tox-qsaparl and prescription medicines only as told by [...] provider. Document Revised: 10/24/2020 Document Reviewed: 10/24/2020 [employer] Patient Education 2022 [employer]. 11/23/2022 12:46:35 Overactive Bladder, Adult Overactive Bladder, [...] your health care provider. General instructions Take nxgx-eyi-iuwpdec and prescription medicines only as told by [...] provider. Document Revised: 11/11/2020 Document Reviewed: 11/11/2020 [employer] Patient Education 2022 [employer]. 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 Troponin 3 Hr. Troponin 6 Hr. Troponin 9 Hr. UA With Cult Reflex Urine Culture Future Appointments Appointment Date:08/17/2022 10:30:00 AM Scheduled Provider:Patricio CHAKRABORTY MD Location:[facility] Appointment Type:URO Office Visit Future Scheduled Tests Laboratory* Semen Analysis Post Vasectomy 10/06/21 * Semen Analysis Post Vasectomy 10/06/21 [facility]05-08-2023 [facility]:Result Comment: Electronically Signed By: RENALDO TORREZ, Parvin\.br\Date and Time Signed: 07/13/22 10:19 [id number] Hospital Discharge instructions Patient Education 07/13/2022 10:17:27 Hypotension, Avjw-jg-Wala Hypotension As your heart beats, it forces [...] up quickly after you eat. Medicines Take jsvx-ahg-fbdcqmq and prescription medicines only as told by [...] provider. Document Revised: 10/13/2021 Document Reviewed: 10/13/2021 [employer] Patient Education 2022 [employer]. 07/13/2022 10:17:23 Urinary Tract Infection, Adult Urinary [...] Treatment for this condition includes: Antibiotic medicine. Pdor-zye-critxzg medicines to treat discomfort. Drinking enough water [...] Follow these instructions at home: Medicines Take ouib-xsy-xftjthk and prescription medicines only as told by [...] provider. Document Revised: 10/04/2020 Document Reviewed: 10/04/2020 [employer] Patient Education 2022 [employer]. Follow Up Care 07/11/2022 20:06:03 With:SHRUTHI DÍAZ Address: [address] [place] [address]- [phone] Business (1) When:07/17/2022 15:15:00 Comments:Call for followup appointment [facility]05-07-2023 [facility] HospitalComment on above:Result Comment: Electronically Signed By: Wilian SHI DO\Date and Time Signed: 07/12/22 03:16 [id number] NoteCONSULTATION CONSULTATION DATE: 06/25/2022 TO: Shruthi Díaz [...] I have given him 10 pills of [place] to trial and to have available for [...] our patients to inform us about any gahz-mts-ncahxio medications or herbal remedies/nutritional supplements/alternative remedies. 2. [...] treatment options with their primary care provider.[facility] [id number] Hospital Discharge instructions Patient Education 06/11/2022 08:51:48 [...] fried and sweet foods. General instructions Take kert-mqy-knnxgoj and prescription medicines only as told by [...] 12/19/2009 Document Revised: 06/15/2019 Document Reviewed: 03/10/2018 [employer] Patient Education 2020 [employer]. Follow Up Care 06/04/2022 15:50:17 With:MARIANA BRIGGS PA-C, URL Address: [address] [facility] 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 Patient was continued on his home [...] signed by Dell Kim MD> 04/04/22 1132 [facility] Work Phone: 1(409) 170-249601-27-2023 Progress note Author Dell Kim [facility] April 03, 2022 1:47pm Note Date/Time April 03, 2022 1 :47pm [facility] [address] [place] [address] Psychiatry Progress Note Signed Patient: Enio Raymond MR#: [id number] : 1990 Acct:[id number] Age/Sex: 31 / M Adm Date: 3 Loc: Room: [address] [place] [address] Type : ADM IN Attending Dr: Dell [...] <Electronically signed by Dell Kim MD> 04/03/227 [facility] Work Phone: 1(686) 847-996901-26-2023 History and physical note Author Dell Kim [facility] April 02, 2022 1:07pm Note Date/Time April 02, 2022 1 :03pm [facility] [address] [place] [address] Psychiatry H&P Signed Patient: Enio Raymond MR#: [id number] : 1990 Acct:[id number] Age/Sex: 31 / M Adm Date: 3 Loc: Room: [address] [place] [address] Type: ADM IN Attending Dr: Dell Kim [...] issues, reported sobriety Living: With family 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 General instructions Take alno-xwz-vzgnsfi and prescription medicines only as told by [...] 12/19/2009 Document Revised: 06/15/2019 Document Reviewed: 03/10/2018 [employer] Patient Education 2020 [employer]ibe. Follow Up Care 12/15/2021 15:51:03 With:PALMER TORREZ, Patricio Vidales, URL Address: [facility] [address] [place] [address]- When: Unknown [facility] 10-10-2022 Hospital Discharge instructions Patient Education 12/15/2021 [...] (electrical nerve stimulation). For women, using a mobile paramedical examiner to prevent urine leaks. This is a [...] right after experiencing incontinence. General instructions Take afbs-rkg-bxtetju and prescription medicines only as told by [...] 04/01/2005 Document Revised: 03/04/2018 Document Reviewed: 06/03/2017 [employer] Patient Education 2020 [employer]. Follow Up Care 10/06/2021 12:21:17 With:PALMER TORREZ, Patricio Vidales, URL Address: [facility] [address] [place] [phone] When:02/23/2022 [facility] 08-25-2022 NoteHNO ID: [id number] Author: Viktor Gilbert MD Service: ? Author [...] next 24 hours or soonest available appointment. Eino Meredith Raymond has consented to this telephone [...] Spent: 21-30 minutes Viktor Gilbert MD, MS, [facility] Ashley Joyce Department of Cardiovascular Medicine [address], [place] [address] Appointments: (Cardiology); (Vascular Medicine) This note was dictated using a voice recognition software. Please excuse any inadvertent typographical/grammatical/syntax errors that may have escaped the final proofread. Please don't hesitate to contact my office for any clarification.[facility]08-25-2022 History of Present illness Narrative* Viktor Gilbert [...] Spent: 21-30 minutes Viktor Gilbert MD, MS, [facility] Ashley Joyce Department of Cardiovascular Medicine [address], [place] [address] Appointments: (Cardiology); (Vascular Medicine) This note was dictated using a voice recognition software. Please excuse any inadvertent typographical/grammatical/syntax errors that may have escaped the final proofread. Please don't hesitate to contact my office for any clarification. [facility] Hospital Discharge instructions Patient Education [...] help you get to a healthyweight. Take dplr-epi-smpyghf and prescription medicines only as told by [...] 04/14/2006 Document Revised: 10/10/2018 Document Reviewed: 10/10/2018 [employer] Patient Education 2020 [employer]. Follow Up Care 10/01/2021 14:34:21 With:PALMER TORREZ, Patricio Vidales, URL Address: [facility] [address], [place] [address] [phone] When:Within 2 Month(s) [facility] 07-19-2022 NoteHNO ID: [id number] Author: Tahir Dejesus MD Service: ? Author Type: Physician Type: Progress Notes Filed: 10/06/2021 8:48 AM Note Text: PATIENT: Enio Raymond [id number] REFERRING MD: Harsh 09/23/2021 Chief Complaint Post op History of Present Illness Enio Raymond is a very pleasant 30 year old male who presents for post op check up Had recent vasectomy from [facility] urologist office with severe scrotal [...] Past Histories independently gathered by the clinical is support analyst including scribe and or medical student and or MIGUEL and or resident or fellow and the remaining scribed note accurately describes my personal service to the patient. Tahir Dejesus MD, MS [facility]07-19-2022 History of Present illness Narrative* Tahir Dejesus MD - 09/23/2021 4:00 PM EDT PATIENT: Enio Raymond [id number] REFERRING MD: Self 09/23/2021 Chief Complaint Post op History of Present Illness Enio Raymond is a very pleasant 30 year old male who presents for post op check up Had recent vasectomy from [facility] urologist office with severe scrotal [...] Past Histories independently gathered by the clinical is support analyst including scribe and or medical student and or MIGUEL and or resident or fellow and the remaining scribed note accurately describes my personal service to the patient. Tahir Dejesus MD, MS [facility] documented in this encounterNorwalk [facility]07-19-2022 NotePatient Outreach (UROLMN) ENIO RAYMOND ([id number]) 1990 M T Date Time Provider Department 09/23/21 TAHIR DEJESUS During your visit today, we recorded the following information about you: Allergies As of Date: 09/23/2021 (No Known Allergies) Date Reviewed: 09/23/2021 Reviewed by: Rell Gallegos MA - Fully Assessed Visit Diagnosis:Screening for genitourinary condition [Z13.89] Order(s):URINALYSIS, REFLEX MICROSCOPIC [XTU2195] Order #: [id number]. #:[id number] Prescriptions as of 09/26/2021 - warfarin (COUMADIN) [...] 08/27/2021 Encounter Status:Closed by KATALINA BILLINGS on 09/26/21[facility] 09-10-2021 Miscellaneous Notes* Telephone Encounter - Alana [...] answered. 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 S/p 750cc albumin with good [...] of this encounter (statuses as of 09/10/2021) [facility] History of Past illness Narrative* [...] of this encounter (statuses as of 09/26/2021) [facility] History of Past illness Narrative* [...] this AM in setting of DKA/[place] Gangrene, [place]/Central line placed. S/p 750cc albumin with good [...] of this encounter (statuses as of 10/06/2021) [facility] History of Past illness Narrative* [...] of this encounter (statuses as of 10/30/2021) [facility]06-08-2022 Hospital Discharge instructions Patient Education [...] an athletic support cup for comfort. Take wign-gyg-fodnvgk and prescription medicines only as told by [...] 03/27/2011 Document Revised: 02/04/2018 Document Reviewed: 05/10/2017 [employer] Patient Education 2020 [employer]. Follow Up Care 08/12/2021 16:38:44 With:PALMER TORREZ, Patricio Vidales, URL Address: [facility] [address], [place] [address]- When: Unknown [facility] [place] 01-17-2022 Evaluation note* Encounter Date [...] Patient care instructions given in writting by [facility] Care At Home document. [employer] Other 11-16-2021 Evaluation note* Encounter Date Diagnosis [...] Patient care instructions given in writting by [facility] Care At Home document [employer] Other Evaluation + Plan note No data available for this section [facility] [place] Evaluation + Plan note Future Appointments Appointment Date:12/15/2021 01:15:00 PM Scheduled Provider:Patricio CHAKRABORTY MD Location:[facility] Appointment Type:URO Office Visit Diagnostic Tests Pending * Electrolyte Panel 10/06/21 Future Scheduled Tests Laboratory* Semen Analysis Post Vasectomy 10/06/21 * Semen Analysis Post Vasectomy 10/06/21 [facility] evaluation + Plan note Future Appointments Appointment Date:02/16/2022 01:15:00 PM Scheduled Provider:Patricio CHAKRABORTY MD Location:[facility] Appointment Type:URO Office Visit Diagnostic Tests Pending * Electrolyte Panel 12/15/21 Future Scheduled Tests Laboratory* Semen Analysis Post Vasectomy 10/06/21 * Semen Analysis Post Vasectomy 10/06/21 [facility] evaluation + Plan note Future Appointments Appointment Date:08/17/2022 10:30:00 AM Scheduled Provider:Patricio CHAKRABORTY MD Location:[facility] Appointment Type:URO Office Visit Future Scheduled Tests Laboratory* Semen Analysis Post Vasectomy 10/06/21 * Semen Analysis Post Vasectomy 10/06/21 [facility] evaluation + Plan note Future Appointments Appointment Date:03/29/2023 11:15:00 AM Scheduled Provider:Patricio CHAKRABORTY MD Location:[facility] Appointment Type:URO Office Visit Diagnostic Tests Pending * Testosterone Level Total 11/23/22 * Prolactin Level 11/23/22 [facility] evalciufsr noteNo assessment information available [facility] [employer] Work Phone: Evaluation noteNo InformationNortUpper Allegheny Health System DoctorC Other Evaluation note* Diagnosis Screening for genitourinary condition Screening for other and unspecified genitourinary condition documented in this encounter [facility] note* Diagnosis Vasectomy status- Primary documented in this encounter [facility] note* Diagnosis Multiple subsegmental pulmonary emboli without acute cor pulmonale (HCC)- Primary Anticoagulation management encounter Encounter for therapeutic drug monitoring documented in this encounter [facility] note* Diagnosis Onset Date Resolution Status Depression acute [facility] [employer] Work Phone: Hismqnp general Narrative - Reported* Type Description Date Medical History fx rt great toe Medical History diabetes mallitus Medical History mood disorder Surgical History arthroscopic knee surgery [employer] Other Hospital Discharge instructions No data available for this section [facility] Additional Instructions Regular Diet No Activity RestrictionsOhio[facility] Center [employer] Work Phone: Progress note No data available for this section [facility] Chief Complaint and Reason for Visit Chief [...] Documents on File Type Date Recorded 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 Advance Directive(s) 08/13/2021 5:01 PM [...] SHRUTHI DÍAZ CNP Address: Address: [address] [facility] [address] Team Status: Inactive Member Role Status [...] section and content) DATE CREATED AUTHOR 08/14/2021 [facility] DATE CREATED AUTHOR AUTHOR'S ORGANIZ ATION 04/04/2022 [facility] DATE CREATED AUTHOR AUTHOR'S ORGANIZ ATION 07/17/2022 [facility] DATE CREATED AUTHOR AUTHOR'S ORGANIZ ATION 09/22/2022 [facility] DATE CREATED AUTHOR AUTHOR'S ORGANIZ ATION 12/11/2022 [facility] REASON FOR VISIT (unrecogniz ed section and [...] or prosecute any alcohol or drug abuse patient.[facility] the event this information is protected by the Federal Confidentiality of Alcohol and Drug Abuse Patient Records regulations: The Federal rules restrict any use of the information to criminally investigate or prosecute any alcohol or drug abuse patient.[facility] Hospital[facility] the event this information is protected by the Federal Confidentiality of Alcohol and Drug Abuse Patient Records regulations: The Federal rules restrict any use of the information to criminally investigate or prosecute any alcohol or drug abuse patient.[facility] the event this information is protected by the Federal Confidentiality of Alcohol and Drug Abuse Patient Records regulations: The Federal rules restrict any use of the information to criminally investigate or prosecute any alcohol or drug abuse patient.[facility] FOR RECORDS PERTAINING TO PATIENTS [...] BE BASED ON THE PRIMARY CLINICAL RECORDS. [facility] [employer] [facility]. provides no warranty or guarantee of the accuracy or completeness of information in this document.
[2024-08-21 23:21] VITALS: BP 171/104; PULSE 95; TEMP 36.7; O2SAT 100; BMI 32.9
[2024-08-22 00:09] VITALS: BP 162/103; PULSE 91; O2SAT 97
--- NOTE | 2024-08-22 00:12 | PC.NURSE ---
this patient complains of right upper and right lower teeth pain onset yesterday evening
--- NOTE | 2024-08-22 00:26 | ED_ITS ---
HPI - Dental/Oral General Chief complaint: Dental/Oral Stated complaint: TOOTH PAIN Time Seen by Provider: 08/22/24 00:18 Source: patient Mode of arrival: walk-in Limitations: no limitations History of Present Illness HPI Narrative: This 33-year-old male with a history of dental disease who is awaiting an appointment next month with a dentist in [place] presents for evaluation of dental pain in teeth #30 and 31. He states the pain has been ongoing for the past several days. He started amoxicillin earlier today. He states he feels like there is an exposed nerve root in his tooth. He is adamant that he not receive narcotic medications. He is not having difficulty breathing or swallowing or opening his mouth. He has not had a fever. Related Data Home Medications ?Medication ?Instructions ?Recorded ?Confirmed imipramine pamoate 100 mg capsule 100 mg PO BEDTIME 08/21/24 amoxicillin 500 mg capsule mg 08/21/24 atomoxetine 40 mg capsule mg PO 08/21/24 atorvastatin 20 mg tablet mg 08/21/24 blood sugar diagnostic (OneTouch 08/21/24 08/21/24 Ultra Test strips) dulaglutide 1.5 mg/0.5 mL mg subcut 08/21/24 subcutaneous pen injector (Trulicity) insulin glargine 100 unit/mL (3 unit subcut 08/21/24 mL) subcutaneous pen (Lantus Solostar U-100 Insulin) metformin 1,000 mg tablet mg 08/21/24 syringe with needle 3 mL 23 gauge 08/21/24 08/21/24 x 1 1/2 (BD Luer-Ana Syringe) testosterone cypionate 200 mg/mL mg 08/21/24 intramuscular oil Allergies Allergy/AdvReac Type Severity Reaction Status Date / Time No Known Drug Allergies Allergy Verified 08/21/24 23:25 Review of Systems ROS Status of ROS 10 or more systems reviewed and unremark able except as noted in history and below [facility] Medical History History of pulmonary embolism ?Z86.711 - Personal history of pulmonary embolism (ICD-10) Diabetes ?E11.9 - Type 2 diabetes mellitus without complications (ICD-10) Gangrene ?I96 - Gangrene, not elsewhere classified (ICD-10) Pulmonary embolus ?I26.99 - Other pulmonary embolism without acute cor pulmonale (ICD-10) Diabetic acidosis, type II ?E11.10 - Type 2 diabetes mellitus with ketoacidosis without coma (ICD-10) Acute hyperglycemia ?R73.9 - Hyperglycemia, unspecified (ICD-10) Surgical History [place] teeth extracted ?K08.409 - Partial loss of teeth, unspecified cause, unspecified class (ICD- 10) H/O vasectomy ?Z98.52 - Vasectomy status (ICD-10) Family History Grandfather Family history of cancer Grandmother Family history of cancer Social History Within the past year, how often did you have a drink containing alcohol: never Score interpretation: A score less than 4 is consistent with normal alcohol consumption. Smoking status: Current every day smoker Do you use any of these nicotine containing products: vaping products Non-prescribed substance use: denies use Previous occupational history: none Highest level of school completed/degree received: high school graduate Are you now , , , , never or living with a partner: In a typical week, how many times do you talk on the telephone with family, friends, or neighbors: once per week How often do you get together with friends or relatives: once per week How often do you attend gnosticist or presybeterian services: never Do you belong to any clubs or organizations such as gnosticist groups unions, fraternal or athletic groups, or school groups: no Total score: 1 Score interpretation: A score of less than or equal to 1 indicates the most socially isolated. Little interest or pleasure in doing things: not at all Feeling down, depressed, or hopeless: not at all Feel stressed/tense/nervous/anxious/difficulty sleeping: only a little Do you think of yourself as: straight/heterosexual Gender Identity: male Exam Narrative Exam Narrative: Vital signs and Nursing Notes reviewed: Patient is afebrile with a normal pulse, blood pressure is elevated at 162/103, he is not hypoxic with pulse ox of 98% on room air General: Awake, alert, oriented, nontoxic but uncomfortable appearing adult male, no respiratory distress HEENT: Normocephalic atraumatic, mucous membranes are moist and pink, eyes are clear, normal conjunctiva, vision is grossly intact, posterior pharynx is normal in appearance. There is a broken and decayed tooth #30 and 31 in the right posterior mandible area. There is no periapical abscess, gingival inflammation or sign of necrotizing gingivitis. There is no pooling of secretions, the patient's speech is clear. Neck: Supple, nontender, no lymphadenopathy appreciated Chest: Lungs are clear to auscultation with good air entry, there is no wheezing rhonchi or rales appreciated no accessory muscle use, patient is speaking in complete sentences-no chest wall tenderness to palpation CVS: Regular rate and rhythm S1-S2, no murmurs rubs or gallops, pulses are brisk and equal bilaterally Skin: Normal in appearance without rash,pallor, petechiae or purpura Neuro: No focal deficits Constitutional Vital Signs, click to edit/add: Last Vital Signs Temp 98.0 F 08/21/24 23:21 Pulse 91 H 08/22/24 00:09 Resp 18 08/22/24 00:09 BP 162/103 H 08/22/24 00:09 Pulse Ox 97 08/22/24 00:09 Course Vital Signs Vital signs: Vital Signs Temperature 98.0 F 08/21/24 23:21 Pulse Rate 95 H 08/21/24 23:21 Respiratory Rate 20 08/21/24 23:21 Blood Pressure 171/104 H 08/21/24 23:21 Pulse Oximetry 100 08/21/24 23:21 Temperature 98.0 F 08/21/24 23:21 Pulse Rate 91 H 08/22/24 00:09 Respiratory Rate 18 08/22/24 00:09 Blood Pressure 162/103 H 08/22/24 00:09 Pulse Oximetry 97 08/22/24 00:09 MDM - Dental/Oral MDM Narrative Medical decision making narrative: This 33-year-old male presents for evaluation of dental pain. He has broken and decayed teeth in his right posterior mandible teeth #30 and 31. He does have a dental appointment. He has been seen by [facility] and dentistry in the past and had x-rays taken and was referred to another dentist. He has an appointment in September. He states the teeth have been breaking and he has been spitting out shards of teeth. He does not have any sign of necrotizing gingivitis or periapical abscess. Overall his teeth appear to be in good repair. He is on amoxicillin that was prescribed earlier in the day. He was adamant that he did not want narcotic medication. He was given a dose of IM Toradol and a dental block was performed by myself with good control of his pain. He will be discharged home with dental analgesia. Discharge Plan Discharge Chief Complaint: Dental/Oral Clinical Impression: Pain, dental Patient Disposition: Home, Self-Care Time of Disposition Decision: 00:55 Condition: Good Prescriptions / Home Meds: No Action imipramine pamoate 100 mg capsule 100 mg PO BEDTIME amoxicillin 500 mg capsule atorvastatin 20 mg tablet (DME) OneTouch Ultra Test Strip MISCELLANEOUS metformin 1,000 mg tablet (DME) syringe with needle [BD Luer-Ana Syringe] 3 mL 23 gauge x 1 1/2 syringe MISCELLANEOUS testosterone cypionate 200 mg/mL oil atomoxetine 40 mg capsule PO insulin glargine [Lantus Solostar U-100 Insulin] 100 unit/mL (3 mL) insulin pen SUBCUT Trulicity 1.5 mg/0.5 mL pen injector SUBCUT Print Language: Iraqi Instructions: Toothache (ED) Referrals: KRUPA DÍAZ [Primary Care Provider, Family Practice] - 1 week Procedures ED Procedure Instructions Procedures Procedures: Procedure note: Dental block, the procedure was explained to the patient who verbalizes consent. 2 cc of 0.5% Marcaine and 2 cc of 1% lidocaine were infiltrated into the buccal mucosa adjacent to teeth #30 and 31. Shortly thereafter the patient had relief of his pain.
[2024-08-22] MEDS: KETOROLAC TROMETHAMINE 60 MG/2 ML VIAL IM (00:35)
[2024-08-22] MEDS: LIDOCAINE HCL 1% 100 MG/10 ML MDV INJ (00:45)
[2024-08-22] MEDS: BUPIVACAINE HCL 0.5% PF 50 MG/10 ML VIAL 5 ML INJ (00:45)
[2024-08-22] MEDS: BENZOCAINE 30 ML, lidocaine HCL 15 ML MM (00:46)
[2024-08-22 01:01] VITALS: BP 183/103; PULSE 83
--- NOTE | 2024-08-22 01:03 | PC.NURSE ---
i gave this patient verbal and written discharge orders and this patient voices yes to understanding these. at time of discharge this patient voices no concerns and shows no signs of distress
== END 2024-08-22 01:02 | disposition home or self-care (01) ==
PROVIDERS: Emergency Provider Emergency Medicine; Family Provider Family Medicine; PCP Nurse Practitioner Family
DX: K08.89 Other specified disorders of teeth and supporting structures (principal); Z98.52 Vasectomy status; F17.290 Nicotine dependence, other tobacco product, uncomplicated
CPT/HCPCS: 64450; 96372; 99284; J0665; J1885

== ENCOUNTER 2024-10-07 08:44 | Outpatient (OUT) | payer OTHER, SELFPAY ==
--- OUTSIDE RECORDS SUMMARY | 2024-07-18 10:33 | XMS_ITS ---
Author Organization [facility] Address [address] [place] [address] Care Team Providers Care Housekeeper Manager Name Role Phone Shruthi Carrero Primary Care Provider [phone] Reason For Referral Diagnosis 1 Hearing loss (H91.90 ) Referral Organization [facility] Referring Provider First Name Shruthi Referring Provider Last Name Alise Referring Provider Speciality Family Med icine Referred Provider Specialty Otolaryngolo gy Referral Priority Routine REASON FOR VISIT referral Problems Problem Type SNOMED Code ICD Code Onset Dates Problem Status W/U Status Risk Notes Problem Hearing loss (H91.90) Active confirmed Encounters Encounter Location Date Provider Diagnosis [facility] [address] [place] [address] 07/18/2024 Shruthi Valdezmer Hearing loss H91.90 Assessments Encounter Date Diagnosis (ICD Code) Assessment Notes Treatment Notes Treatment Clinical Notes Section Notes 07/18/2024 Hearing loss (ICD-10 - H91.90) Plan Of Treatment Referrals Referral Date Details 07/18/2024 07/18/2024 Progress Notes * MANDISadiq Reinosoan WDOB:1990 (33 yo M)Acc No.[id number]:07/18/2024 Patient: Enio COLUNGA :1990 A ge:33 Y S ex:Male Address:[address] [place] [id number] Subjective: * Chief Complaints: * R eferral * Medical History: * Surgical History: * Hospitalization/Major Diagno stic Procedure: * Medications: Objective: * Vitals: * Physical Examination: Assessment: * Assessment: 1. H earing loss - H91.90 (Primary) Plan: * Treatment: * Procedure Codes: * true * Date: Generated for Hi gonzalez/Hillary/Federica on: 0 10/07/2024 08:49 AM EDT Consultation Request Notes Referral Date Referring Provider Referred Provider Not es 07/18/2024 Shruthi Carrero ,
--- OUTSIDE RECORDS SUMMARY | 2024-07-20 09:17 | XMS_ITS ---
Author Organization [facility] in [place] Address [address] [place] [address] Care Team Providers Care [employer] Adviser Name Role Phone Shruthi Carrero Primary Care Provider REASON FOR VISIT Strattera Medications Medication SIG (Take, Route, Fr equency, Duration) Notes Start Date End Date Status Strattera 40 MG 1 capsule in the mor ahsan Orally Once a day for 30 days 07/18/2024 Active Encounters Encounter Location Date Provider Diagnosis [facility] [address] [place] [address] 07/20/2024 Shruthi Carrero Adult ADHD F90.9 Assessments Encounter Date Diagnosis (ICD Code) Assessment Notes Treatment Notes Treatment Clinical Notes Section Notes 07/20/2024 Adult ADHD (ICD-10 - F90.9) Plan Of Treatment Medication Medication Name Sig Start Date Stop Date Notes Strattera 40 MG 1 capsule in the mor ashan Orally Once a day for 30 days 07/18/2024 Progress Notes * MANDI, Enio WDOB:1990 (33 yo M)Acc No.[id number]:07/20/2024 Patient: Enio COLUNGA :1990 A ge:33 Y S ex:Male Address:[address] [place] [address], [phone] * Refills Refill Strattera Capsule, 40 MG, Orally, 30, 1 capsule in the morning, Once a day, 30 days, Refills=5 * true * Date: Generated for Printi lisa/Hillary/Federica on: 0 10/07/2024 08:48 AM EDT
--- OUTSIDE RECORDS SUMMARY | 2024-09-18 04:30 | XMS_ITS ---
Author Organization [facility] vices Address [address] [place] [phone] Care Team Providers Care Manufacturing Scheduler Name Role Phone Artur Lisa Unavailable [phone] REASON FOR VISIT PARK GUARD Comp Exam Encounters Encounter Location Date Provider Diagnosis [facility] [address] [place], [place] [id number] 09/18/2024 Lisa Siddiqui Plan Of Treatment No Information Progress Notes * MANDISadiq DeanHoldenOB:1990 ([age] yo M)Acc No.[id number]:09/18/2024 Patient: Enio COLUNGA Provider: Anneliese Siddiqui DMD :1990 A ge:33 Y S ex:Male Date:09/18/2024 Address:[address] [place], [place] [phone] Subjective: * Chief Complaints: * 1 . PARK GUARD Comp Exam. * Medical History: Objective: * Vitals: Assessment: Plan: * Treatment: * Billing Information: * Visit Code: * Procedure Codes: * Electronic signature of Ruth Siddiqui DMD on 10/07/2024 at 08:48 AM EDT Sign off status: Pending * Provider: Anneliese Siddiqui DMD Date: 09/18/2024 Generated for Hi gonzalez/Hillary/eTransmitting on: 10/07/2024 08:48 AM EDT
--- OUTSIDE RECORDS SUMMARY | 2024-10-06 05:39 | XMS_ITS ---
Author Organization [facility] [place] Address [address] [place] [address] Care Team Providers Care Warrant Server Name Role Phone Shruthi Carrero Primary Care Provider REASON FOR VISIT labs/appointment Encounters Encounter Location Date Provider Diagnosis [facility] [address] [place] [address] 10/06/2024 Shruthi Carrero Testicular hypofunct ion E29.1 ; Hyperlipidemia E78.5 and Diabetes mellitus E11.9 Assessments Encounter Date Diagnosis (ICD Code) Assessment Notes Treatment Notes Treatment Clinical Notes Section Notes 10/06/2024 Testicular hypofunction (ICD-10 - E29.1) 10/06/2024 Hyperlipidemia (ICD-10 - E78.5) 10/06/2024 Diabetes mellitus (ICD-10 - E11.9) Plan Of Treatment Pending Test Test Name Order Date TESTOSTERONE 10/06/2024 GLYCOHEMOGLOBIN A1C 10/06/2024 LIPID PROFILE 10/06/2024 Progress Notes * Enio GREY WDOB:1990 (33 yo M)Acc No.[id number]:10/06/2024 Patient: Enio COLUNGA :1990 A ge:33 Y S ex:Male Address:[address] [place] [address], [phone] Subjective: * Chief Complaints: * L abs/appointment * Medical History: * Surgical History: * Hospitalization/Major Diagno stic Procedure: * Medications: Objective: * Vitals: * Physical Examination: Assessment: * Assessment: 1. T esticular hypofunction - E29.1 (Primary) 2 . H yperlipidemia - E78.5? 3. D iabetes mellitus - E11.9 Plan: * Treatment: 2. H yperlipidemia L AB: LIPID PROFILE 3. D iabetes mellitus L AB: GLYCOHEMOGLOBIN A1C * Procedure Codes: * true * Date: Generated for Hi gonzalez/Hillary/Federica on: 0 10/07/2024 08:48 AM EDT
--- OUTSIDE RECORDS SUMMARY | 2024-10-07 08:48 | XMS_ITS | Clinical Summary ---
Author Organization [facility] Address [address] [place] [id number] Care Team Providers Care Call Center Operations Manager Name Role Phone Unavailable Primary Care Provider Unavailabl e Allergies No known active allergies Medications atorvastatin (LIPITOR) 20 mg tablet Take 20 mg by mouth once daily. 1 Active buPROPion XL (WELLBUTRIN XL) 150 mg 24 hr tablet Take 150 mg by mouth once daily. 2 Active FLUoxetine (PROZAC) 40 mg capsule Take 40 mg by mouth once daily. 2 Active insulin detemir U-100 (LEVEMIR) 100 unit/mL (3 mL) injection pen Insulin Detemir U-100 (Levemir Flextouch U-100 Insuln) 100 unit/mL (3 mL) Insulin Pen Active 35 UNITS SUBCUT Daily 0 October 09, 2020 12:11pm 1 Active ketoconazole (NIZORAL) 2 % cream APPLY TO AFFECTED AREA 3 TIMES A DAY FOR 7 DAYS 2 Active lisinopril (ZESTRIL, PRINIVIL) 20 mg tablet Take 20 mg by mouth once daily. [address] (PROTONIX) 40 mg tablet Take 40 mg by mouth once daily. 2 Active tiZANidine (ZANAFLEX) 4 mg tablet Take 4 mg by mouth once daily as needed for pain. 2 Active warfarin (COUMADIN) 5 mg tablet Take 1 tablet by mouth once daily. 3 tablet 2 Active LEVEMIR FLEXTOUCH U-100 INSULIN 100 unit/mL (3 mL) injection pen Inject 30 Units subcutaneously once daily. 9 mL 2 Active metFORMIN ER (GLUCOPHAGE XR) 500 mg 24 hr tablet Take 2 tablets by mouth twice daily. 60 tablet 2 Active warfarin (COUMADIN) 7.5 mg tablet TAKE 1 TO 1 & 1/2 TABLETS BY MOUTH DAILY DIRECTED 2 Active Active Problems Problem Noted Date Diagnosed Date Nicotine use disorder, F17.2 01/01/2022 Pulmonary embolism 08/22/2021 Assessment & Plan (08/28/2021 2:40 PM EDT): 08/21 CT bilateral segmental and subsegmental PE, ECHO w no RV strain Transitioned to Lovenox given weight - peak anti Xa therapeutic PLAN: - Continue therapeutic Lovenox - Consider repeat CT at some point --- per CT read: UNDERLYING AREA OF EARLY INFARCTION IN THE RIGHT LOWER LOBE IS NOT EXCLUDED. NODULE OF DIFFERENT ETIOLOGY IS NOT EXCLUDED WELL. CT FOLLOW-UP IS RECOMMENDED. INDETERMINATE HETEROGENEOUS DENSITIES IN BILATERAL RIBS. CLINICAL CORRELATION IS RECOMMENDED. FURTHER EVALUATION BY BONE SCAN CAN BE PERFORMED IF CLINICALLY INDICATED. Assessment & Plan (08/27/2021 5:55 PM EDT): 08/21 CT bilateral segmental and subsegmental PE, ECHO w no RV strain Transitioned to Lovenox given weight - peak anti Xa therapeutic PLAN: - Continue therapeutic Lovenox - Consider repeat CT at some point --- per CT read: UNDERLYING AREA OF EARLY INFARCTION IN THE RIGHT LOWER LOBE IS NOT EXCLUDED. NODULE OF DIFFERENT ETIOLOGY IS NOT EXCLUDED WELL. CT FOLLOW-UP IS RECOMMENDED. INDETERMINATE HETEROGENEOUS DENSITIES IN BILATERAL RIBS. CLINICAL CORRELATION IS RECOMMENDED. FURTHER EVALUATION BY BONE SCAN CAN BE PERFORMED IF CLINICALLY INDICATED. Assessment & Plan (08/26/2021 9:30 AM EDT): 08/21 CT bilateral segmental and subsegmental PE, ECHO w no RV strain Transitioned to Lovenox given weight PLAN: - Continue lovenox, following anti-Xa - Consider repeat CT at some point --- per CT read: UNDERLYING AREA OF EARLY INFARCTION IN THE RIGHT LOWER LOBE IS NOT EXCLUDED. NODULE OF DIFFERENT ETIOLOGY IS NOT EXCLUDED WELL. CT FOLLOW-UP IS RECOMMENDED. INDETERMINATE HETEROGENEOUS DENSITIES IN BILATERAL RIBS. CLINICAL CORRELATION IS RECOMMENDED. FURTHER EVALUATION BY BONE SCAN CAN BE PERFORMED IF CLINICALLY INDICATED. Assessment & Plan (08/25/2021 1:11 PM EDT): Assessment: bilateral segmental and subsegmental PE's seen on CT scan 08/21. No RV strain echo - EF 57% Remains on vent, therapeutic on lovenox PLAN: -- given weight, transitioned IV heparin to therapeutic Lovenox following anti- Xa -- consider repeat CT at some point --- per CT read: UNDERLYING AREA OF EARLY INFARCTION IN THE RIGHT LOWER LOBE IS NOT EXCLUDED. NODULE OF DIFFERENT ETIOLOGY IS NOT EXCLUDED WELL. CT FOLLOW-UP IS RECOMMENDED. INDETERMINATE HETEROGENEOUS DENSITIES IN BILATERAL RIBS. CLINICAL CORRELATION IS RECOMMENDED. FURTHER EVALUATION BY BONE SCAN CAN BE PERFORMED IF CLINICALLY INDICATED. Assessment & Plan (08/23/2021 1:26 PM EDT): Assessment: bilateral segmental and subsegmental PE's seen on CT scan 08/21. No RV strain echo - EF 57% Remains on vent, therapeutic on lovenox PLAN: -- given weight, transitioned IV heparin to therapeutic Lovenox following anti- Xa -- consider repeat CT at some point --- per CT read: UNDERLYING AREA OF EARLY INFARCTION IN THE RIGHT LOWER LOBE IS NOT EXCLUDED. NODULE OF DIFFERENT ETIOLOGY IS NOT EXCLUDED WELL. CT FOLLOW-UP IS RECOMMENDED. INDETERMINATE HETEROGENEOUS DENSITIES IN BILATERAL RIBS. CLINICAL CORRELATION IS RECOMMENDED. FURTHER EVALUATION BY BONE SCAN CAN BE PERFORMED IF CLINICALLY INDICATED. Assessment & Plan (08/22/2021 11:49 AM EDT): Assessment: bilateral segmental and subsegmental PE's seen on CT scan 08/21. No RV strain PLAN: -- given weight, will transition IV heparin to therapeutic Lovenox with anti-Xa 4 hours after first dose -- echo -- consider repeat CT at some pont --- per CT read: UNDERLYING AREA OF EARLY INFARCTION IN THE RIGHT LOWER LOBE IS NOT EXCLUDED. NODULE OF DIFFERENT ETIOLOGY IS NOT EXCLUDED WELL. CT FOLLOW-UP IS RECOMMENDED. INDETERMINATE HETEROGENEOUS DENSITIES IN BILATERAL RIBS. CLINICAL CORRELATION IS RECOMMENDED. FURTHER EVALUATION BY BONE SCAN CAN BE PERFORMED IF CLINICALLY INDICATED. Fever 08/22/2021 Assessment & Plan (08/28/2021 4:58 PM EDT): Temp 39.4 on 08/16, antibiotics escalated to mihai/linezolid. Temp 38.7 on 08/21, cultures NGTD. Remains afebrile. PLAN: - Completed Linezolid/Mihai 08/27 - Trend fever, WBC off ATB Assessment & Plan (08/27/2021 6:00 PM EDT): Temp 39.4 on 08/16, antibiotics escalated to mihai/linezolid. Temp 38.7 on 08/21, cultures NGTD. Remains afebrile. PLAN: - Continue mihai/lineozolid through 08/27 - Trend fever, WBC off ATB Assessment & Plan (08/26/2021 1:28 PM EDT): Temp 39.4 on 08/16, antibiotics escalated to mihai/linezolid. Temp 38.7 on 08/21, cultures NGTD. Most recent temp 38.3 x1 on 08/25. Currently afebrile. PLAN: - Continue mihai/lineozolid through 08/28 - Follow fever curve Assessment & Plan (08/25/2021 1:08 PM EDT): Assessment: Fever 38.7 on 08/21. UA negative for pyuria, LE, nitrites. PLAN: -- f/u blood - NGTD - resp cultures - GPCs Assessment & Plan (08/23/2021 1:24 PM EDT): Assessment: Fever 38.7 on 08/21. UA negative for pyuria, LE, nitrites. PLAN: -- f/u blood - NGTD - resp cultures - GPCs Assessment & Plan (08/22/2021 11:50 AM EDT): Assessment: Fever 38.7 on 08/21. UA negative for pyuria, LE, nitrites. PLAN: -- f/u blood and resp cultures Electrolyte imbalance 08/21/2021 Assessment & Plan (08/28/2021 4:58 PM EDT): Hypomagnesemia, and hypophosphatemia PLAN: - Lytes replaced per PRN protocol - Daily labs Assessment & Plan (08/27/2021 6:06 PM EDT): Hypokalemia, hypomagnesemia, and hypophosphatemia. Diuresing. PLAN: - Lytes replaced per PRN protocol - Daily labs - Repeat lytes after lasix Assessment & Plan (08/26/2021 1:13 PM EDT): Hypokalemia, hypomagnesemia, and hypophosphatemia PLAN: - Lytes replaced per PRN protocol - Daily labs - Repeat lytes after lasix Assessment & Plan (08/25/2021 1:04 PM EDT): Assessment: hypomagnesemia and hypophosphatemia PLAN: -- replaced Assessment & Plan (08/23/2021 1:23 PM EDT): Assessment: hypophosphatemia PLAN: -- replaced Assessment & Plan (08/22/2021 11:45 AM EDT): Assessment: hypophosphatemia PLAN: -- replaced Assessment & Plan (08/21/2021 8:33 AM EDT): Assessment: hypophosphatemia PLAN: -- replaced Mild protein-calorie malnutrition 08/20/2021 Assessment & Plan (08/28/2021 4:55 PM EDT): Tolerating TFs at goal. Passed bedside swallow 08/26. Advanced to full diet - carb controlled 08/27. Tolerating well. PLAN: - Corpak d/c - Carb control diet with supplements Assessment & Plan (08/27/2021 5:58 PM EDT): Tolerating TFs at goal. Passed bedside swallow 08/26. Started on TF with tray - carb controlled. PLAN: - Advanced to full diet - carb controlled - TF d/c - D/c Corpak tomorrow if remains off TF Assessment & Plan (08/26/2021 1:12 PM EDT): Tolerating TFs at goal PLAN: - Bedside swallow evaluation - Start CLD, advance as tolerated - Continue TFs at goal Assessment & Plan (08/25/2021 1:10 PM EDT): Assessment: TF started overnight via corpak PLAN: -- advance TF to goal Assessment & Plan (08/23/2021 1:24 PM EDT): Assessment: TF started overnight via corpak PLAN: -- advance TF to goal Assessment & Plan (08/22/2021 11:46 AM EDT): Assessment: TF started overnight via corpak PLAN: -- advance TF to goal Assessment & Plan (08/21/2021 11:02 AM EDT): Assessment: NPO pending extubation evaluation. PLAN: -- if remains intubated, will need corpak for TF Acute pain 08/18/2021 Assessment & Plan (08/28/2021 5:00 PM EDT): S/p surgical debridements PLAN: - Continue ATC tylenol - PRN oxycodone and fentanyl Assessment & Plan (08/27/2021 6:09 PM EDT): S/p surgical debridements PLAN: - Continue ATC tylenol - PRN oxycodone and fentanyl Assessment & Plan (08/26/2021 12:59 PM EDT): S/p surgical debridements PLAN: - Continue ATC tylenol - PRN oxycodone and fentanyl Assessment & Plan (08/25/2021 12:59 PM EDT): Secondary to surgical debridements PLAN: - PRN Oxycodone - ATC po tylenol Assessment & Plan (08/23/2021 1:08 PM EDT): Secondary to surgical debridements PLAN: - continue prn percocet and prn fentanyl - ATC po tylenol Assessment & Plan (08/21/2021 10:59 AM EDT): Secondary to surgical debridements PLAN: - continue prn percocet and prn fentanyl - ATC po tylenol Assessment & Plan (08/20/2021 7:25 AM EDT): Secondary to surgical debridements PLAN: - continue prn percocet and prn fentanyl - ATC po tylenol Assessment & Plan (08/19/2021 8:41 AM EDT): Secondary to surgical debridements PLAN: - continue prn percocet and prn fentanyl - ATC po tylenol Assessment & Plan (08/18/2021 10:06 AM EDT): Secondary to surgical debridements PLAN: - continue prn percocet and prn fentanyl Acute postoperative respiratory insufficiency Assessment & Plan (08/28/2021 5:00 PM EDT): Hx DENAE (non-compliant w CPAP), incidentally found to be COVID positive Extubated 08/25 to BiPAP, now on 4L NC, tolerating well PLAN: - IS, BPH, PT, OOB - Continue to wean supplemental O2 for SpO2 88-92% - BiPAP qHS - See COVID Assessment & Plan (08/27/2021 6:09 PM EDT): Hx DENAE (non-compliant w CPAP), incidentally found to be COVID positive Extubated 08/25, now on 6L NC, tolerating well PLAN: - IS, BPH, PT, OOB - Continue to wean supplemental O2 for SpO2 > 92% - 20 mg IV lasix today - BiPAP qHS - See COVID Assessment & Plan (08/26/2021 1:11 PM EDT): Hx DENAE (non-compliant w CPAP), incidentally found to be COVID positive Extubated 08/25, on HF NC 35L 40% PLAN: - IS, BPH, PT, OOB - Continue to wean supplemental O2 for SpO2 > 92% - Given 40mg IV lasix - CPAP qHS - See COVID Assessment & Plan (08/25/2021 1:01 PM EDT): Was intubated and sedated since 1st OR on 08/13, then takeback on 08/15-->extubated 08/16 Reintubated for OR 08/19 and had desaturation episode during induction likely d/t positioning on table and body habitus. No c/f aspiration. 08/21: FiO2 decreased 50%--> 40%; PEEP decreased 12-->8. Developed chest pressure during SBT (ECG WNL) 08/22: FiO2 65%, [address] + PEs. Weaned to pressure support with FiO2 40%, peep 10 PLAN: - OOB, PT, IS - wean vent to maintain oxygen sats > 92% - diurese again today - extubate to BiPAP Assessment & Plan (08/23/2021 1:09 PM EDT): Was intubated and sedated since 1st OR on 08/13, then takeback on 08/15-->extubated 08/16 Reintubated for OR 08/19 and had desaturation episode during induction likely d/t positioning on table and body habitus. No c/f aspiration. 08/21: FiO2 decreased 50%--> 40%; PEEP decreased 12-->8. Developed chest pressure during SBT (ECG WNL) 08/22: FiO2 65%, [address] + PEs. Weaned to pressure support with FiO2 40%, peep 10 PLAN: - OOB, PT, IS - wean vent to maintain oxygen sats > 92% - restart diuresis today to optimize for possible extubation - difficult art line stick - axillary art line placed 08/21 only lasted a few hours Assessment & Plan (08/22/2021 11:42 AM EDT): Was intubated and sedated since 1st OR on 08/13, then takeback on 08/15-->extubated 08/16 Reintubated for OR 08/19 and had desaturation episode during induction likely d/t positioning on table and body habitus. No c/f aspiration. 08/21: FiO2 decreased 50%--> 40%; PEEP decreased 12-->8. Developed chest pressure during SBT (ECG WNL) 08/22: FiO2 65%, [address] + PEs. PLAN: - OOB, PT, IS - wean vent to maintain oxygen sats > 92% - hold diuresis today (net negative 2.4L ) - difficult art line stick - axillary art line placed 08/21 only lasted a few hours Assessment & Plan (08/21/2021 10:59 AM EDT): Was intubated and sedated since 1st OR on 08/13, then takeback on 08/15-->extubated 08/16 Reintubated for OR 08/19 and had desaturation episode during induction likely d/t positioning on table and body habitus. No c/f aspiration. 08/21: FiO2 decreased 50%--> 40%; PEEP decreased 12-->8. Developed chest pressure during SBT (ECG WNL) PLAN: - OOB, PT, IS - wean vent to maintain oxygen sats > 92% - diurese - evaluate for extubation later today Assessment & Plan (08/20/2021 11:31 AM EDT): Was intubated and sedated since 1st OR on 08/13, then takeback on 08/15-->extubated 08/16 Reintubated for OR 08/19 and had desaturation episode during induction likely d/t positioning on table and body habitus. No c/f aspiration. Remain on vent FiO2 45%, peep 12 Possible extubation today if continues to wean PLAN: - OOB, PT, IS - wean vent to maintain oxygen sats > 92% Assessment & Plan (08/19/2021 8:42 AM EDT): Was intubated and sedated since 1st OR on 08/13, then takeback on 08/15-->extubated 08/16 Increased from 3 L NC to 6 L this morning PLAN: - OOB, PT, IS - wean O2 as able - CXR today Assessment & Plan (08/18/2021 10:02 AM EDT): Was intubated and sedated since 1st OR on 08/13, then takeback on 08/15-->extubated 08/16 Doing well on 3 L NC PLAN: - OOB, PT, IS - wean O2 as able Assessment & Plan (08/17/2021 8:02 PM EDT): Assessment: Has remained intubated and sedated since 1st OR on 08/13, now s/p takeback on 08/15 [place] on NC post extubation PLAN: -OOB as able - IS / hyperinflation - Consider CPAP for DENAE at night Assessment & Plan (08/16/2021 5:34 PM EDT): Assessment: Has remained intubated and sedated since 1st OR on 08/13, now s/p takeback on 08/15 PLAN: -Extubate -OOB as able - IS / hyperinflation - Consider CPAP for DENAE at night Assessment & Plan (08/15/2021 12:45 PM EDT): Assessment: arrived intubated s/p Scrotal I&D, with plan to remain intubated for OR on 08/15 PLAN: -Keep intubated for OR today -peridex, elevated HOB -PPI -F/u urology recs regarding WTE postop 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 CT w multiloculated abscesses in scrotum. S/p extensive debridement, scrotal exploration, and re-debridement on 08/13, 08/15, and 08/19. Operative cultures growing MRSA, E. Faecalis, and lactobacillus. Post-op c/b ongoing fevers and hypotension, vanco/Zosyn/Clinda escalated to Linezolid/Mihai. Completed Linezolid/Mihai course 08/27. Overnight jessica dislodged and attempted to be replaced by Urology at bedside unsuccessfully. PLAN: - Urology following, appreciate recs - No plans to replace jessica per Urology - D/c Valencia - strict instructions to stand at bedside when voiding with urinal Assessment & Plan (08/27/2021 5:59 PM EDT): Presented w testicular swelling, pain, and bleeding following vasectomy on 07/25. CT w multiloculated abscesses in scrotum. S/p extensive debridement, scrotal exploration, and re-debridement on 08/13, 08/15, and 08/19. Operative cultures growing MRSA, E. Faecalis, and lactobacillus. Post-op c/b ongoing fevers and hypotension, vanco/Zosyn/Clinda escalated to Linezolid/Mihai PLAN: - Continue Linezolid/Mihai through 08/27 - Urology following, appreciate recs - Transfer to Internal Medicine service once ok to d/c from SICU Assessment & Plan (08/26/2021 1:36 PM EDT): Presented w testicular swelling, pain, and bleeding following vasectomy on 07/25. CT w multiloculated abscesses in scrotum. S/p extensive debridement, scrotal exploration, and re-debridement on 08/13, 08/15, and 08/19. Operative cultures growing MRSA, E. Faecalis, and lactobacillus. Post-op c/b ongoing fevers and hypotension, vanco/Zosyn/Clinda escalated to Linezolid/Mihai PLAN: - Continue Linezolid/Mihai through 08/28 - Urology following, appreciate recs - Transfer to Internal Medicine service once ok to d/c from SICU Assessment & Plan (08/25/2021 1:10 PM EDT): 08/13 S/p I&D, testicular degloving 08/14 vanco/Zosyn/Clinda changed to Linezolid and Merrem for ongoing fevers and hypotension 08/15 re-op with urology for further I&D 08/19 s/p debridement, closure and creation of thigh pouch PLAN: - Continue Linezolid/Merrem 08/14 - 08/27 - BID WTD dressings - f/u urology recs Assessment & Plan (08/23/2021 1:24 PM EDT): 6/8 S/p I&D, testicular degloving 08/14 vanco/Zosyn/Clinda changed to Linezolid and Merrem for ongoing fevers and hypotension 610 re-op with urology for further I&D 14 s/p debridement, closure and creation of thigh pouch PLAN: - Continue Linezolid/Merrem 08/14 - 08/27 - BID WTD dressings - f/u urology recs Assessment & Plan (08/22/2021 11:46 AM EDT): /8 S/p I&D, testicular degloving 08/14 vanco/Zosyn/Clinda changed to Linezolid and Merrem for ongoing fevers and hypotension 08/15 re-op with urology for further I&D 08/19 s/p debridement, closure and creation of thigh pouch PLAN: - Continue Linezolid/Merrem 08/14 - 08/27 - BID WTD dressings - f/u urology recs Assessment & Plan (08/21/2021 9:08 AM EDT): 6/8 S/p I&D, testicular degloving 08/14 vanco/Zosyn/Clinda changed to Linezolid and Merrem for ongoing fevers and hypotension 10 re-op with urology for further I&D 08/19 s/p debridement, closure and creation of thigh pouch PLAN: - Continue Linezolid/Merrem 08/14 - 08/27 - BID WTD dressings - f/u urology recs Assessment & Plan (08/20/2021 11:31 AM EDT): 6/8 S/p I&D, testicular degloving 08/14 vanco/Zosyn/Clinda changed to Linezolid and Merrem for ongoing fevers and hypotension 610 re-op with urology for further I&D 14 s/p debridement, closure and creation of thigh pouch PLAN: - Continue Linezolid/Merrem 08/14 - 08/27 - BID WTD dressings Assessment & Plan (08/19/2021 8:47 AM EDT): 08/13 S/p I&D, testicular degloving 08/06 re-op with urology for further I&D Vanco/Zosyn/Clinda changed to Linezolid and Merrem for ongoing fevers and hypotension PLAN: - Continue Linezolid/Merrem - BID WTD dressings Assessment & Plan (08/18/2021 10:04 AM EDT): 08/13 S/p I&D, testicular degloving 08/06 re-op with urology for further I&D Vanco/Zosyn/Clinda changed to Linezolid and Merrem for ongoing fevers and hypotension PLAN: - Continue Linezolid/Merrem - BID WTD dressings Assessment & Plan (08/17/2021 8:04 PM EDT): Assessment: s/p I&D, testicular degloving 08/13 re-op 08/15 with urology for further I&D. Vanco/Zosyn/Clinda changed o/n to Linezolid and Merrem for ongoing fevers and hypotension. PLAN: - Continue Linezolid/Merrem - BID WTD dressings Assessment & Plan (08/16/2021 5:38 PM EDT): Assessment: s/p I&D, testicular degloving 08/13 re-op 08/15 with urology for further I&D. Vanco/Zosyn/Clinda changed o/n to Linezolid and Merrem for ongoing fevers and hypotension. PLAN: - Continue Linezolid/Merrem - BID WTD dressings Assessment & Plan (08/15/2021 12:29 PM EDT): Assessment: s/p I&D, testicular degloving 08/13 08/15: plan for re-op today with urology for further I&D. Vanco/Zosyn/Clinda changed o/n to Linezolid and Merrem for ongoing fevers and hypotension. PLAN: - Continue Linezolid/Merrem - F/u re-op findings/interventions - Keep intubated/sedated for OR - BID WTD dressings Assessment & Plan (08/14/2021 2:23 AM EDT): Assessment: s/p I&D, testicular degloving 08/13 PLAN: Continue vanc/zosyn, low threshold to add clinda Bedside dressing change today, urology requesting to keep intubated and sedated until after this is done Depressive disorder 08/14/2021 Assessment & Plan (08/28/2021 4:59 PM EDT): On bupropion 150mg and fluoxetine 40mg at home Denies feelings of depression PLAN: - Restart home meds now off Linezolid/Mihai Assessment & Plan (08/27/2021 6:07 PM EDT): On bupropion 150mg and fluoxetine 40mg at home Denies feelings of depression PLAN: - Restart home meds once off linezolid Assessment & Plan (08/26/2021 1:37 PM EDT): On bupropion 150mg and fluoxetine 40mg at home Denies feelings of depression PLAN: - Restart home meds once off linezolid Assessment & Plan (08/25/2021 1:01 PM EDT): buproprion and fluoxetine at home PLAN: - continue buproprion - holding fluoxetine while on linezolid Assessment & Plan (08/23/2021 1:09 PM EDT): buproprion and fluoxetine at home PLAN: - continue buproprion - holding fluoxetine while on linezolid Assessment & Plan (08/21/2021 10:59 AM EDT): buproprion and fluoxetine at home PLAN: - continue buproprion - holding fluoxetine while on linezolid Assessment & Plan (08/20/2021 7:27 AM EDT): buproprion and fluoxetine at home PLAN: - continue buproprion - holding fluoxetine while on linezolid Assessment & Plan (08/19/2021 8:43 AM EDT): buproprion and fluoxetine at home PLAN: - continue home meds Assessment & Plan (08/18/2021 10:04 AM EDT): buproprion and fluoxetine at home PLAN: - continue home meds Assessment & Plan (08/17/2021 8:03 PM EDT): Assessment: buproprion and fluoxetine at home PLAN: continue home meds Assessment & Plan (08/16/2021 5:35 PM EDT): Assessment: buproprion and fluoxetine at home PLAN: Resume when able to take PO- will restart now exubated Assessment & Plan (08/15/2021 12:30 PM EDT): Assessment: buproprion and fluoxetine at home PLAN: Resume when able to take PO Assessment & Plan (08/14/2021 1:50 AM EDT): Assessment: buproprion and fluoxetine at home PLAN: Resume when able to take PO COVID 08/14/2021 Assessment & Plan (08/28/2021 5:00 PM EDT): Incidental finding on admission, not vaccinated Per ID, would not recommend treatment of COVID-19 given lack of symptoms on presentation Completed 10 day course of decadron (08/14-08/23). Now requiring 4L NC, tolerating well. PLAN: - Maintain precautions - re-eval following 20 days isolation per [facility] protocol - Continue to wean supplemental O2 as able Assessment & Plan (08/27/2021 6:08 PM EDT): Incidental finding on admission, not vaccinated Per ID, would not recommend treatment of COVID-19 given lack of symptoms on presentation Completed 10 day course of decadron (08/14-08/23) PLAN: - Maintain precautions - re-eval following 20 days isolation per [facility] protocol - Continue to wean supplemental O2 as able Assessment & Plan (08/26/2021 1:25 PM EDT): Incidental finding on admission, not vaccinated Per ID, would not recommend treatment of COVID-19 given lack of symptoms on presentation Completed 10 day course of decadron (08/14-08/23) PLAN: - Maintain precautions while requiring HF NC - D/w infection prevention when deemed appropriate to remove precautions Assessment & Plan (08/25/2021 1:01 PM EDT): Incidental finding on admission Per ID, would not recommend treatment of COVID-19 given lack of symptoms on presentation PLAN: - Decadron 08/14 - 08/23 Assessment & Plan (08/23/2021 1:09 PM EDT): Incidental finding on admission Per ID, would not recommend treatment of COVID-19 given lack of symptoms on presentation PLAN: - Decadron 08/14 - 08/23 Assessment & Plan (08/22/2021 11:42 AM EDT): Incidental finding on admission Per ID, would not recommend treatment of COVID-19 given lack of symptoms on presentation PLAN: - Decadron 08/14 - 08/23 Assessment & Plan (08/21/2021 10:59 AM EDT): Incidental finding on admission Per ID, would not recommend treatment of COVID-19 given lack of symptoms on presentation PLAN: - Decadron 08/14 - 08/23 Assessment & Plan (08/20/2021 7:27 AM EDT): Incidental finding on admission Per ID, would not recommend treatment of COVID-19 given lack of symptoms on presentation PLAN: - Decadron 08/14 - 08/23 Assessment & Plan (08/19/2021 8:43 AM EDT): Incidental finding on admission Per ID, would not recommend treatment of COVID-19 given lack of symptoms on presentation PLAN: - Decadron started 08/14 - last ID recs 08/15 Assessment & Plan (08/18/2021 10:03 AM EDT): Incidental finding on admission Per ID, would not recommend treatment of COVID-19 given lack of symptoms on presentation PLAN: - Decadron started -9 - last ID recs 08/15 Assessment & Plan (08/17/2021 8:02 PM EDT): Assessment: Incidental finding on admission. -Per ID, would not recommend treatment of COVID-19 given lack of symptoms on presentation. Inflammatory markers would not be useful (picture mucked by presence of bacterial infection) PLAN: -Defer Covid treatment for now - consider treating If respiratory status worsens Assessment & Plan (08/16/2021 5:35 PM EDT): Assessment: Incidental finding on admission. -Per ID, would not recommend treatment of COVID-19 given lack of symptoms on presentation. Inflammatory markers would not be useful (picture mucked by presence of bacterial infection) PLAN: -Defer Covid treatment for now - consider treating If respiratory status worsens Assessment & Plan (08/15/2021 12:37 PM EDT): Assessment: Incidental finding on admission. -Per ID, would not recommend treatment of COVID-19 given lack of symptoms on presentation. Inflammatory markers would not be useful (picture mucked by presence of bacterial infection) PLAN: -Defer Covid treatment for now - consider treating If respiratory status worsens Assessment & Plan (08/14/2021 2:26 AM EDT): Assessment: Incidental finding on admission PLAN: ID consult Contact with and (suspected) exposure to covid-1 9 03/24/2021 Acute pancreatitis 10/25/2020 Diabetes mellitus 10/09/2020 Assessment & Plan (08/28/2021 4:59 PM EDT): Insulin dependent, home regimen Levermir 50U daily and metformin 1000mg BID per Endo note DKA on admission, BG now well controlled < 200 PLAN: - Continue SSI #3 and 30U lantus - Accuchecks ACHS - Re-consult endo once transferred out of SICU Assessment & Plan (08/27/2021 6:07 PM EDT): Insulin dependent, home regimen Levermir 50U daily and metformin 1000mg BID per Endo note DKA on admission, BG now well controlled < 200 PLAN: - Continue SSI #3 and 30U lantus - Accuchecks ACHS - Re-consult endo once transferred out of SICU Assessment & Plan (08/26/2021 1:17 PM EDT): Insulin dependent, home regimen Levermir 50U daily and metformin 1000mg BID per Endo note DKA on admission, BG now < 200 PLAN: - Continue SSI #3 and 30U lantus - Q6 accuchecks - Re-consult endo once transferred out of SICU Assessment & Plan (08/25/2021 1:02 PM EDT): insulin dependent, home regimen ? detemir 35u daily and metformin 1000mg daily DKA on admission PLAN: - insulin gtt --> transition to 30 units lantus and SSI 3 - endo following Assessment & Plan (08/23/2021 1:22 PM EDT): insulin dependent, home regimen ? detemir 35u daily and metformin 1000mg daily DKA on admission PLAN: - insulin gtt --> transition to 30 units lantus and SSI 3 - endo following Assessment & Plan (08/22/2021 11:42 AM EDT): insulin dependent, home regimen ? detemir 35u daily and metformin 1000mg daily DKA on admission PLAN: - insulin gtt -- once at goal TF, consider back to SSI and lantus - endo following Assessment & Plan (08/21/2021 11:00 AM EDT): insulin dependent, home regimen ? detemir 35u daily and metformin 1000mg daily DKA on admission PLAN: - insulin gtt - endo following Assessment & Plan (08/20/2021 11:31 AM EDT): insulin dependent, home regimen ? detemir 35u daily and metformin 1000mg daily DKA on admission PLAN: - insulin gtt - endo following Assessment & Plan (08/19/2021 8:47 AM EDT): insulin dependent, home regimen ? detemir 35u daily and metformin 1000mg daily DKA on admission PLAN: - give 20 unit(s) lantus x 1 now and changed the 40 unit(s) to HS - endo following, plan for accuchecks ac/hs and 0100 and 0500 Assessment & Plan (08/18/2021 10:04 AM EDT): insulin dependent, home regimen ? detemir 35u daily and metformin 1000mg daily DKA on admission PLAN: - Continue insulin infusion Assessment & Plan (08/17/2021 8:03 PM EDT): Assessment: insulin dependent, home regimen ? detemir 35u daily and metformin 1000mg daily DKA on admission PLAN: Continue insulin infusion Assessment & Plan (08/16/2021 5:37 PM EDT): Assessment: insulin dependent, home regimen ? detemir 35u daily and metformin 1000mg daily DKA on admission PLAN: Insulin gtt until AG closed Lyte replacement prn Assessment & Plan (08/15/2021 12:37 PM EDT): Assessment: insulin dependent, home regimen ? detemir 35u daily and metformin 1000mg daily DKA on admission PLAN: Insulin gtt until AG closed Clarify home meds when able Lyte replacement prn Assessment & Plan (08/14/2021 2:03 AM EDT): Assessment: insulin dependent, home regimen ? detemir 35u daily and metformin 1000mg daily DKA on admission PLAN: Insulin gtt until AG closed Clarify home meds when able Personal history of nicotine dependence 08/04/20 21 Assessment & Plan (08/28/2021 4:53 PM EDT): Current smoker, ~1/4 ppd on-off since age 14 PLAN: - Encourage cessation - Nicotine patch as needed Assessment & Plan (08/27/2021 5:55 PM EDT): Current smoker, ~1/4 ppd on-off since age 14 PLAN: - Encourage cessation - Nicotine patch as needed Assessment & Plan (08/26/2021 1:53 PM EDT): Current smoker, ~1/4 ppd on-off since age 14 PLAN: - Encourage cessation - Nicotine patch as needed Assessment & Plan (08/25/2021 1:11 PM EDT): current smoker, 1/2 ppd unknown duration PLAN: - Encourage cessation - Nicotine patch as needed Assessment & Plan (08/23/2021 1:24 PM EDT): current smoker, 1/2 ppd unknown duration PLAN: - Encourage cessation - Nicotine patch as needed Assessment & Plan (08/20/2021 7:29 AM EDT): current smoker, 1/2 ppd unknown duration PLAN: - Encourage cessation - Nicotine patch as needed Assessment & Plan (08/19/2021 8:47 AM EDT): current smoker, 1/2 ppd unknown duration PLAN: - Encourage cessation - Nicotine patch as needed Assessment & Plan (08/18/2021 10:05 AM EDT): current smoker, 1/2 ppd unknown duration PLAN: - Encourage cessation - Nicotine patch as needed Assessment & Plan (08/16/2021 5:40 PM EDT): Assessment: current smoker, 1/2 ppd unknown duration PLAN: Encourage cessation Nicotine patch as needed Assessment & Plan (08/15/2021 12:34 PM EDT): Assessment: current smoker, 1/2 ppd unknown duration PLAN: Encourage cessation Assessment & Plan (08/14/2021 2:25 AM EDT): Assessment: current smoker, 1/2 ppd unknown duration PLAN: Encourage cessation Morbid obesity 10/09/2020 Assessment & Plan (08/26/2021 1:37 PM EDT): - BMI 62 Assessment & Plan (08/25/2021 1:10 PM EDT): - BMI 62 Assessment & Plan (08/23/2021 1:24 PM EDT): - BMI 62 Assessment & Plan (08/20/2021 7:29 AM EDT): - BMI 62 Assessment & Plan (08/19/2021 8:47 AM EDT): - BMI 62 Assessment & Plan (08/18/2021 10:05 AM EDT): - BMI 62 Assessment & Plan (08/16/2021 5:39 PM EDT): Assessment: BMI 62 Assessment & Plan (08/15/2021 12:35 PM EDT): Assessment: BMI 62 PLAN: Anticipate prolonged vent weaning Consider esophageal manometry if unable to wean PEEP Assessment & Plan (08/14/2021 2:24 AM EDT): Assessment: BMI 62 PLAN: Anticipate prolonged vent weaning Consider esophageal manometry if unable to wean PEEP Resolved Problems Problem Noted Date Diagnosed Date Resolved Date Other chest pain 08/26/2021 08/27/2021 Assessment & Plan (08/27/2021 5:57 PM EDT): 08/26 c/o RCW and R shoulder pain radiating to R upper arm, denies SOB. ECG and troponin series unremarkable. Resolved with IV fentanyl. PLAN: - Repeat ECG and cardiac enzymes if c/o chest pain - Continue Tele Assessment & Plan (08/26/2021 1:07 PM EDT): 08/26 c/o RCW and R shoulder pain radiating to R upper arm, denies SOB PLAN: - Obtained EKG and cardiac enzymes, ?TWI in leads V4-6, enzymes unremarkable - Resolved with IV fentanyl Hypotension 08/15/2021 08/26/2021 Assessment & Plan (08/15/2021 12:40 PM EDT): Assessment: Hypotensive this AM in setting of DKA/[place] Gangrene, [place]/Central line placed. S/p 750cc albumin with good response PLAN: -Fluid bolus prn -Consider pressors if stops responding to fluid Hypertriglyceridemia 08/14/2021 022 Assessment & Plan (08/25/2021 1:10 PM EDT): Trigs 1444, propofol stopped. Precedex added PLAN: -- recheck and add statin if indicated Assessment & Plan (08/18/2021 10:05 AM EDT): Trigs 1444, propofol stopped. Precedex added PLAN: -- Now off sedation -- recheck and add statin if indicated Assessment & Plan (08/17/2021 8:04 PM EDT): Assessment: Trigs 1444, propofol stopped. Precedex added PLAN: -- Now off sedation -- recheck and add statin if indicated Assessment & Plan (08/16/2021 5:38 PM EDT): Assessment: Trigs 1444, propofol stopped. Precedex added PLAN: -Avoid propofol - Continue Precedex for sedation Assessment & Plan (08/15/2021 12:34 PM EDT): Assessment: Trigs 1444, propofol stopped. Precedex added PLAN: -Avoid propofol - Continue Precedex for sedation Assessment & Plan (08/14/2021 2:23 AM EDT): Assessment: pmhx PLAN: Monitor while on propofol gtt Obstructive sleep apnea 10/09/202008/07 Assessment & Plan (08/26/2021 1:11 PM EDT): Non compliant with CPAP at home PLAN: - extubate to BiPAP today Assessment & Plan (08/25/2021 1:11 PM EDT): Non compliant with CPAP at home PLAN: - extubate to BiPAP today Assessment & Plan (08/23/2021 1:24 PM EDT): Non compliant with CPAP at home PLAN: - Once ready, consider extubating to CPAP for additional PEEP Assessment & Plan (08/22/2021 11:49 AM EDT): Non compliant with CPAP at home PLAN: - Once ready, consider extubating to CPAP for additional PEEP Assessment & Plan (08/20/2021 11:32 AM EDT): Non compliant with CPAP at home PLAN: - consider extubating to CPAP for additional PEEP Assessment & Plan (08/19/2021 8:47 AM EDT): Non compliant with CPAP at home PLAN: - CPAP at night if needed Assessment & Plan (08/18/2021 10:05 AM EDT): Non compliant with CPAP at home PLAN: - CPAP at night if needed Assessment & Plan (08/17/2021 8:05 PM EDT): Assessment: non compliant with CPAP at home PLAN: -CPAP at night if needed Assessment & Plan (08/16/2021 5:39 PM EDT): Assessment: non compliant with CPAP at home PLAN: -CPAP at night Assessment & Plan (08/15/2021 12:35 PM EDT): Assessment: unknown if on CPAP at home PLAN: -NTD while intubated -Extubate to CPAP -CPAP at night Assessment & Plan (08/14/2021 2:24 AM EDT): Assessment: unknown if on CPAP at home PLAN: NTD while intubated Extubate to CPAP CPAP at night Social History Tobacco Use Types Packs/Day Years Used Date Smoking Tobacco: Every Day Cigarettes Alcohol Use Standard Drinks/Week Comments Never 0 (1 standard drink = 0.6 oz pur e alcohol) Area Deprivation Index Answer Date Carlos rded National Score (1-100), lower number is lower ri sk 65 04/05/2022 State Score (1-10), lower number is lower risk N ot on file 04/05/2022 Data from: https://www.neighborhoodatlas.medicine.[email or web address].edu/. Last address used for calculation [address] [facility] [address] [facility] 04/05/2022 Sex and Gender Information Value Date Recorded Sex Assigned at Not on file Legal Sex Male 3:07 PM EDT Gender Identity Not on file Sexual Orientation Not on file Last Filed Vital Signs Vital Sign Reading Time Taken Comments Blood Pressure 121/68 08/29/2021 7:49 PM EDT Pulse 115 08/29/2021 7:49 PM EDT Temperature 36.9 C (98.5 F) 08/29/2021 7:49 PM EDT Respiratory Rate 18 08/29/2021 7:49 PM EDT Oxygen Saturation 98% 08/29/2021 7:49 PM EDT Inhaled Oxygen Concentration - - Weight 174.5 kg (384 lb 11.2 oz) 08/29/2021 5:54 PM EDT Height 190.5 cm (6' 3 ) 08/13/2021 3:39 PM EDT Body Mass Index 48.08 08/13/2021 3:39 PM EDT Plan of Treatment Health Maintenance Due Date Last Done Comments HbA1C 1993 Diabetic Foot Exam 1998 Dilated Retinal Exam 1998 Urine Albumin:Creatinine Ratio 1998 Annual PCP Team Chronic Dise ase Visit 2006 Anxiety Screening 2006 HIV Screening 2006 Hepatitis C Screening 2006 LDL Cholesterol 2006 Hepatitis B Vaccine (1 of 3 - 19+ 3-dose series) 12/14/2007 Pneumococcal Vaccine (1 of 2 - PCV) 12/14/2007 DTaP,Tdap,Td Vaccine (7 - Td or Tdap) 03/16/2016 03/16/2006, 10/28/1994, 06/24/1990, Additional history exists Influenza Vaccine (#1) 2024 Insurance [address] [id number]
--- OUTSIDE RECORDS SUMMARY | 2024-10-07 08:48 | XMS_ITS | Patient Health Record ---
Author Organization The [facility] in [place] Address [address] [place] [address] Care Team Providers Care Space Systems Operations Manager Name Role Phone Shruthi Carrero Primary Care Provider Allergies No Known Allergies Results Component Value Reference Range Notes GLYCOHEMOGLOBIN A1C Reviewed date:07/06/2024 03:47:42 PM Interpretation: Performing Lab: Notes/Report: [facility] , Glycohemoglobin A1C 6.0 4.5-6.2 % ADA RECOMMENDED LIMIT 4.0 - 6.0 ADA THERAPEUTIC TARGET < 7.0 ACTION SUGGESTED > 7.0 Estimated Average Glucose 126 Performing Lab: see note ML - [facility] LB Testosterone Reviewed date:12/09/2023 03:26:29 PM Interpretation: Performing Lab: Notes/Report: [facility] , Testosterone 242 264-916 ng/dL Adult male reference interval is based on a population of healthy nonobese males (BMI <30) between 19 and 39 years old. Eve, et.al. JCEM 2017,102;6706-3839. PMID: 65901038. Performed at: - [facility] [address] [id number] Certified Surgical Technician: Evan Sierra PhD, Phone: [phone] Performing Lab: see note - [facility] LB Testosterone Reviewed date:04/03/2024 04:51:02 PM Interpretation: Performing Lab: Notes/Report: [facility] , Testosterone 319 264-916 ng/dL Adult male reference interval is based on a population of healthy nonobese males (BMI <30) between 19 and 39 years old. Travison, et.al. JCEM 2017,102;5842-7575. PMID: 38393928. Performed at: - [facility] [address] [id number] Certified Surgical Technician: Evan Sierra PhD, Phone: [phone] Performing Lab: see note - [facility] LB GLYCOHEMOGLOBIN A1C Reviewed date:04/03/2024 04:51:02 PM Interpretation: Performing Lab: Notes/Report: [facility] , Glycohemoglobin A1C 6.2 4.5-6.2 % ADA RECOMMENDED LIMIT 4.0 - 6.0 ADA THERAPEUTIC TARGET < 7.0 ACTION SUGGESTED > 7.0 Estimated Average Glucose 131 Performing Lab: see note - [facility] PROF 14(COMP METB) Reviewed date:12/09/2023 03:26:29 PM Interpretation: Performing Lab: Notes/Report: [facility] , Sodium 136 136-145 mmol/L Potassium 3.9 3.5-5.1 mmol/L Chloride 104 98-107 mmol/L Carbon Dioxide 24.9 21.0-32.0 mmol/L Anion Gap 11.0 Glucose 133 74-106 mg/dL Blood Urea Nitrogen 9.0 7.0-18.0 mg/dL Creatinine 0.78 0.70-1.30 mg/dL Estimated GFR ( Tami >60 >=60 mL/min/1.73m 2 Estimated GFR (Non- Melanie >60 >=60 mL/min/1.73m 2 BUN Creatinine Ratio 11.5 Calcium 8.9 8.5-10.1 mg/dL Bilirubin Total 0.3 0.2-1.0 mg/dL Aspartate Amino Transferase 23 15-37 U/L Alanine Aminotransferase 47 16-63 U/L Alkaline Phosphatase 111 46-116 U/L Total Protein 7.1 6.4-8.2 g/dL Albumin Level 3.5 3.4-5.0 g/dL Globulin 3.6 Albumin Globulin Ratio 1.0 Performing Lab: see note ML - [facility] LB LIPID PROFILE Reviewed date:12/09/2023 03:26:29 PM Interpretation: Performing Lab: Notes/Report: [facility] , Triglycerides 183 <=150 mg/dL Cholesterol 202 <=200 mg/dL HDL Cholesterol 43 40-60 mg/dL > or =60 mg/dl - LOW CARDIOVASCULAR RISK <40 mg/dl - HIGH CARDIOVASCULAR RISK LDL Cholesterol Calculated 123.0 <100 mg/dl OPTIMAL 100-129 mg/dl NEAR OR ABOVE OPTIMAL 130-159 mg/dl BORDERLINE HIGH 160-189 mg/dl HIGH >190 mg/dl VERY HIGH VLDL CHOLESTEROL 36.6 Chol HDL Ratio 4.7 3.3 - 4.4 LOW RISK 4.4 - 7.1 AVERAGE RISK 7.1 - 11.0 MODERATE RISK >11.0 HIGH RISK Performing Lab: see note - [facility] GLYCOHEMOGLOBIN A1C Reviewed date:12/09/2023 03:26:29 PM Interpretation: Performing Lab: Notes/Report: [facility] , Glycohemoglobin A1C 6.4 4.5-6.2 % ADA RECOMMENDED LIMIT 4.0 - 6.0 ADA THERAPEUTIC TARGET < 7.0 ACTION SUGGESTED > 7.0 Estimated Average Glucose 137 Performing Lab: see note - [facility] Testosterone Reviewed date:07/13/2024 11:56:24 AM Interpretation: Performing Lab: Notes/Report: [facility] , Testosterone 683 264-916 ng/dL Adult male reference interval is based on a population of healthy nonobese males (BMI <30) between 19 and 39 years old. Eve et.al. JCEM 2017,102;7550-8560. PMID: 60876079. Performed at: [facility] [address] [id number] Certified Surgical Technician: Evan Sierra PhD, Phone: [phone] Performing Lab: see note - [facility] LB Reason For Referral Reason hearing testing Diagnosis 1 Change in hearing (H 91.90) Referral Organization [facility] Referring Provider First Name Shruthi Referring Provider Last Name [facility] Referring Provider [facility] Referred Provider Ml Walsh Referred Provider Specialty Otolaryngolo gy Referral Priority Routine Diagnosis 1 Hearing loss (H91.90 ) Referral Organization [facility] Referring Provider First Name Shruthi Referring Provider Last Name Alise Referring Provider [facility] Referred Provider Specialty Otolaryngolo gy Referral Priority Routine Medications Medication SIG (Take, Route, Frequency, Duration) Notes Start Date End Date Status Atorvastatin Calcium 20 MG TAKE 1 TABLET BY MOUTH EVERY DAY FOR 30 DAYS for 90 Not-Taking Testosterone Cypionate 200 MG/ML INJECT 0.5 MILLILITERS INTRAMUSCULARLY ONCE A WEEK for 28 10/03/2024 Active BD Syringe/Needle 23G X 1 3 ML weekly for 30 days 09/23/2023 Active OneTouch Ultra - USE DIRECTED PARISH Y for 90 Active Trulicity 1.5 MG/0.5ML as directed Subcu taneous weekly for 28 days Active metFORMIN HCl 1000 MG TAKE 1 TABLET BY M OUTH TWICE A DAY FOR 30 DAYS for 90 Not-Taking Sure Comfort Pen [place] 31G X 5 MM Use 1 pen needles for insulin TID DX E11.9 for 30 days Active Imipramine Pamoate 100 MG 2 capsules Oral at HS for 90 days Active Lantus SoloStar 100 UNIT/ML 50 units Subcutaneous Twice daily Not-Taking Strattera 40 MG 1 capsule in the mor ahsan Orally Once a day for 30 days 07/18/2024 Active Social History Tobacco Use: Social History Observation Description Date Details (start date - stop date) Current Smoker NA - NA Tobacco Use/Smoking Question Answer Notes Patient is a current smoker How often do you smoke cigarettes? every day Alcohol Screen (Audit-C) Question Answer Notes Did you have a drink containing alcohol in the p ast year? No Points 0 Interpretation Negative AUDIT-C (Standard) Question Answer Notes Did you have a drink containing alcohol in the p ast year? No Points 0 Interpretation Negative Problems Problem Type SNOMED Code ICD Code Onset Dates Problem Status W/U Status Risk Notes Problem Testicular hypofunction (485039134) Testicular hypofunction (E29.1) Active confirmed Problem Overweight (872194676) Overweight (E66.3) Active confirmed Problem 385868535 Adjustment disorder with depressed mood (F43.21) Active confirmed Problem 975314351 Pneumonia, unspecified organism (J18.9) Active confirmed Problem 229764515 Abnormal level o f hormones in specimens from other organs, systems and tissues (R89.1) Active confirmed Problem 633558487 Disappearance an d of family member (Z63.4) Active confirmed Problem Fatigue (76448232) Fatigue (R53.83) Active conf irmed Problem Hyperlipidemia (23123263) Hyperlipidemia (E78.5) Active confirmed Problem Hypertension (69464762) HTN (hypertension) (I10) Active confirmed Problem Anemia (609109211) Anemia (D64.9) Active confir med Problem Depression (327301186) Depression (F32.9) Active confirmed Problem Obstructive sleep apnea (98863135) Obstructive sleep apnea (G47.33) Active confirmed Problem Urinary incontinence (345026981) Urinary incontinence (R32) Active confirmed Problem Esophageal reflux (314849649) Esophageal reflux (K21.9) Active confirmed Problem Hearing loss (58607208) Hearing loss (H91.90) Active confirmed Problem 512198772 Lumbar disc herniation (M51.26) Active confirmed Problem Tobacco user (405637758) Nicotine addiction (F17.200) Active confirmed Problem History of pulmonary embolus (418529750) History of pulmonary embolism (Z86.711) Active confirmed Problem Hemorrhoids (17391976) Hemorrhoids (K64.9) Active confirmed Problem Lumbar radiculopathy (695372885) Left lumbar radiculopathy (M54.16) Active confirmed Problem Suicidal ideation (4061609) Suicidal ideation (R45.851) Active confirmed Problem Steatosis of liver (584863007) Hepatic steatosis (K76.0) Active confirmed Problem Superficial thrombophlebitis (6433649) Superficial thrombophlebitis (I80.9) Active confirmed Problem Hearing loss (31709916) Change in hearing (H91.90) Active confirmed Problem 828258009 Lumbar radiculopathy, acute (M54.16) Active confirmed Problem History of vasectomy (808080006) H/O vasectomy (Z98.52) Active confirmed Problem Attention deficit hyperactivity disorder (635479726) Adult ADHD (F90.9) Active confirmed Problem 53734212 Primary hypertension (I10) Active confirmed Problem 535183286 Encounter for observed medication taking (Z02.89) Active confirmed Problem Obese class II (finding) (172468620331168) Class 2 obesity (E66.9) Active confirmed Problem Diabetes mellitus (69852501) Diabetes mellitus (E11.9) Active confirmed Problem Headache (63425479) Headache, unspecified (R51.9) Active confirmed Problem Low back pain (finding) (823288347) Other low back pain (M54.59) Active confirmed Vital Signs Blood pressure diastolic 74 mm Hg 07/17/2024 Height 74 in 07/17/2024 Blood pressure systolic 126 mm Hg 07/17/2024 Weight 280.6 lbs 07/17/2024 BMI 36.02 kg/m2 07/17/2024 Encounters Encounter Location Date Provider Diagnosis [facility] [address] [place] [address] 10/21/2023 Shruthi Carrero Diabetes mellitus E1 1.9 and Testicular hypofunction E29.1 [facility] [address] [place] [address] 02/01/2024 Shruthi Carrero Depression F32.9 and Diabetes mellitus E11.9 [facility] [address] [place] [address] 05/16/2024 Shruthi Carrero Depression F32.9 ; Testicular hypofunction E29.1 and Class 2 obesity E66.9 [facility] [address] [place] [address] 07/17/2024 Shruthi Carrero Change in hearing H91.90 ; Adult ADHD F90.9 ; Diabetes mellitus E11.9 ; Hyperlipidemia E78.5 and Testicular hypofunction E29.1 [facility] [address] [place] [address] 10/11/2023 Shruthi Carrero Diabetes mellitus E1 1.9 [facility] [address] [place] [address] 11/15/2023 Shruthi Carrero [facility] [address] [place] [address] 11/23/2023 Shruthi Carrero Diabetes mellitus E1 1.9 [facility] [address] [place] [address] 12/08/2023 Shruthi Carrero [facility] [address] [place] [address] 12/09/2023 Shruthi Carrero Testicular hypofunct ion E29.1 [facility] [address] [place] [address] 01/11/2024 Shruthi Carrero Diabetes mellitus E1 1.9 [facility] [address] [place] [address] 01/20/2024 Shruthi Carrero [facility] [address] [facility] [address] 01/24/2024 Shruthi Carrero [facility] [address] [facility] [address] 03/13/2024 Shruthi Carrero Diabetes mellitus E1 1.9 and Testicular hypofunction E29.1 [facility] [address] [place] [facility] [place] [place] [address] 04/03/2024 Shruthi Carrero Testicular hypofunct ion E29.1 [facility] [address] [place] [facility] [place] [place] [address] 04/04/2024 Shruthi Carrero [facility] [address] [facility] [address] 05/08/2024 Shruthi Carrero [facility] [address] [place] [facility] [place] [address] 05/18/2024 Shruthi Carrero [facility] [address] [facility] [place] [address] 07/04/2024 Shruthi Carrero Diabetes mellitus E1 1.9 [facility] [address] [place] [facility] [place] [address] 07/06/2024 Shruthi Carrero [facility] [address] [place] [facility] [place] [address] 07/07/2024 Shruthi Carrero Testicular hypofunct ion E29.1 [facility] [address] [facility] [place] [address] 07/14/2024 Shruthi Carrero [facility] [address] [facility] [place] [address] 07/18/2024 Shruthi Carrero Hearing loss H91.90 [facility] [address] [facility] [place] [address] 07/20/2024 Shruthi Carrero Adult ADHD F90.9 [facility] [address] [facility] [place] [address] 10/06/2024 Shruthi Carrero Testicular hypofunct ion E29.1 ; Hyperlipidemia E78.5 and Diabetes mellitus E11.9 Assessments Encounter Date Diagnosis (ICD Code) Assessment Notes Treatment Notes Treatment Clinical Notes Section Notes 10/21/2023 Diabetes mellitus (ICD-10 - E11.9) OZempic approved, no SE increase dose next month 02/01/2024 Depression (ICD-10 - F32.9) 02/01/2024 Diabetes mellitus (ICD-10 - E11.9) unable to find VIctoza could try rx for truilcity? ozempic samples given fu 3 months, labs due Isaac try setting alarm on phone for BID dosing, be consistent with meds!! 05/16/2024 Depression (ICD-10 - F32.9) mood has improved does take imipramine 05/16/2024 Testicular hypofunction (ICD-10 - E29.1) last test check WNL continue test, due for labs 06/2910/11/2023 Diabetes mellitus (ICD-10 - E11.9) 11/23/2023 Diabetes mellitus (ICD-10 - E11.9) 12/09/2023 Testicular hypofunction (ICD-10 - E29.1) repeat testosterone level 3 months 01/11/2024 Diabetes mellitus (ICD-10 - E11.9) 03/13/2024 Diabetes mellitus (ICD-10 - E11.9) 03/13/2024 Testicular hypofunction (ICD-10 - E29.1) 04/03/2024 Testicular hypofunction (ICD-10 - E29.1) 07/04/2024 Diabetes mellitus (ICD-10 - E11.9) 07/07/2024 Testicular hypofunction (ICD-10 - E29.1) 07/18/2024 Hearing loss (ICD-10 - H91.90) 07/20/2024 Adult ADHD (ICD-10 - F90.9) 10/06/2024 Testicular hypofunction (ICD-10 - E29.1) 10/06/2024 Hyperlipidemia (ICD-10 - E78.5) 07/17/2024 Change in hearing (ICD-10 - H91.90) 07/17/2024 Adult ADHD (ICD-10 - F90.9) trial of Straterra pt states on Wellbutrin in past and SE, didnt like it avoid controlled meds 07/17/2024 Diabetes mellitus (ICD-10 - E11.9) patient stopped insulin and metformin on own just taking trulicity lost another 27 lbs in last 3 months A1c 6 continue working on diet, exercise monitor BS Patient educated on Diabetic diet... Reviewed Hypoglycemia / Hyperglycemia action plan: Instructed to call office if blood sugar above 350 or below 65 consecutively. 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 Instructed patient to check feet daily, wear socks daily, wear proper fitting shoes, lotion feet at night with no lotion between toes, powder between toes. Follow-up with podiatry Q6M and PRN. No toenail clipping except by Podiatry. Please bring glucase meter and record to each appointment, Please feel free to call if you have questions or concerns about management or condition. Please call 1 week before medications are depleted for refills. If you are instructed to be fasting for procedure or testing, please call for dosing instructions. 10/06/2024 Diabetes mellitus (ICD-10 - E11.9) 05/16/2024 Class 2 obesity (ICD-10 - E66.9) continue faby has lost about 100 lbs in last 2 years feeling better continue work on diet, exercise 10/21/2023 Testicular hypofunction (ICD-10 - E29.1) states taking needs repeat labs 07/17/2024 Hyperlipidemia (ICD-10 - E78.5) stopped taking statin no SE, just stopped will recheck lipids 07/17/2024 Testicular hypofunction (ICD-10 - E29.1) test WNL continue test repeat labs 07/17/2024 Other get eyes checked Plan Of Treatment Pending Test Test Name Order Date Holter Test 07/17/2022 CMP (COMPLETE METABOLIC PANEL) 4 CMP (COMPLETE METABOLIC PANEL) 4 HEMOGLOBIN A1C (GLYCO) 07/15/2023 HEMOGLOBIN A1C (GLYCO) 09/23/2023 HEMOGLOBIN A1C (GLYCO) 03/13/2024 INSULIN, TOTAL 07/15/2023 LIPID PANEL (CHOL/TRIG/HDL/LDL) 07/15/19 24 LIPID PANEL (CHOL/TRIG/HDL/LDL) 09/23/19 24 CBC WITH DIFF 07/15/2023 PSA, PROSTATE-SPECIFIC ANTIGEN 4 TESTOSTERONE, TOTAL 07/15/2023 TESTOSTERONE, TOTAL 09/23/2023 URIC ACID 07/15/2023 XR Lumbar Spine (2-3 views) * 07/15/2023 TESTOSTERONE 07/07/2024 TESTOSTERONE 10/06/2024 GLYCOHEMOGLOBIN A1C 10/06/2024 LIPID PROFILE 10/06/2024 THYROID PANEL (T4/TSH/FREE T3) 4 ECHOCARDIO M/2D COMPLETE 07/17/2022 Testosterone 03/13/2024 Insurance Providers Payer Name Payer Address Payer Phone Subscriber Number Group Number Insured Name Patient Relationship to Insured Coverage Start Date Coverage End Date [employer] [place] [employer] [address] [place] [address] [id number] AgataEnio Self - patient is the insured 4 Medications Administered Medication Instructions Date of Administration Dosage Notes Kenalog-40 06/15/2022 80 mg Ketorolac Tromethamine 06/15/2022 60 mg Orphenadrine Citrate 06/15/2022 60 mg Testosterone Cypionate 08/16/2023 0.5 mL Testosterone Cypionate 08/25/2023 0.5 mL Testosterone Cypionate 09/08/2023 0.5 mL Testosterone Cypionate 09/23/2023 0.5 mL Medical (General) History Medical History History ICD Code Cellulitis, unspecified cellulitis site L03.90 Left lumbar radiculopathy M54.16 HTN (hypertension) I10 Pharyngitis J02.9 Suicidal ideation R45.851 Abnormal level of hormones i n specimens from other organs, systems and tissues R89.1 Nicotine addiction F17.200 Acute bronchitis J20.9 Overweight E66.3 Adjustment disorder with depressed mood F43.21 Disappearance and of family member Z63.4 Headache, unspecified R51.9 Sinusitis J32.9 Anemia D64.9 Depression F32.9 BMI 50.0-59.9, adult Z68.43 Obstructive sleep apnea G47.33 Fatigue R53.83 Superficial thrombophlebitis I80.9 Encounter for observed medication taking Z02.89 History of pulmonary embolism Z86.711 Gangrene I96 H/O vasectomy Z98.52 Diabetes mellitus E11.9 Internal derangement of knee M23.90 Esophageal reflux K21.9 Other low back pain M54.59 Hemorrhoids K64.9 Bronchitis J40 Strain of right knee 844.9 Contusion of knee 924.11 Surgical History Surgery Date(Month/Year) Wound Debridement Vasectomy Galliano Teeth Extraction Knee Arthroscopy Hospitalization History Reason Date(Month/Year) [facility] [place]/ [place] Pain Mental Health 03/2022 Lumbar Back Pain/ Herniated Disc 06/2022
--- OUTSIDE RECORDS SUMMARY | 2024-10-07 08:48 | XMS_ITS | Patient Health Record ---
Author Organization [facility] Address [address] [place], [place] [id number] Care Team Providers Care Data Manager Name Role Phone Lisa Siddiqui Unavailable [phone] Reason For Referral No Information Plan Of Treatment No Information Insurance Providers Payer Name Payer Address Payer Phone Subscriber Number Group Number Insured Name Patient Relationship to Insured Coverage Start Date Coverage End Date [employer] [place] [address] [place] [address] [id number] Enio Parmar Self - patient is the insured 5 DMedicaid [employer] after [employer] h[employer]entaques t [address] [place], [place] [id number] Enio Parmar Self - patient is the insured 5
--- OUTSIDE RECORDS SUMMARY | 2024-10-07 08:48 | XMS_ITS | CCD ---
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 Name Role Phone Jackelin Hale Primary Care Provider MD Patricio Chakraborty Attending Provider NONE, XXXX [...] Admitting Unavailable JILLIAN .CHARLES Consulting Unavailclaudia chacko [facility], SHRUTHI Primary Care Unavailable ELIUD HERNANDEZ Consulting Unavailable FAWWAD, WRIGHT H Admitting Unavailable AICHHOLZ, MICROSTRATEGY BI DEVELOPER JACKELIN Primary Care Unavailable FAWWAD, WRIGHT H Attending Unavailable AICHOLZ, MICROSTRATEGY BI DEVELOPER JACKELIN Primary Care Unavailable SHRUTHI DÍAZ Attending Unavailable ARJUN, SHRUTHI Admitting Unavailable FAWWAD, WRIGHT H Attending Unavailable FAWWAD, WRIGHT H Admitting Unavailable AICHHOLZ, MICROSTRATEGY BI DEVELOPER JACKELIN Primary Care Unavailable FAWWAD, WRIGHT H [...] Admitting Unavailable WEIGHT, TAHIR Attending Unavailable CHAKRABORTY, Patrciio R Attending Unavailable CHAKRABORTY, Patricio Vidales Admitting [...] Medication Allergies] Propensity to adverse reactions (disorder) [facility] Repository Medications Current Medications Medication Drug Class(es) [...] 6 hours 15 July 31, 2021 11:45pm [id number] 200 actuat albuterol 0.09 mg/actuat metered dose [...] Bedtime, # 90 tab(s), Refills(s) 3, Pharmacy: [facility]/pharmacy #[id number], 190, ignacio, 06/11/22 8:47:00 EDT, Height/Length Dosing, 175, kg, 06/11/22 8:47:00 EDT, Weight Dosing Start Date: 07/08/22 Status: Ordered Start: 10-06-2021 take 2 tablets by mo [facility] at bedtime DDAVP 0.2 mg oral tablet 0.4 mg = 2 tab(s), Oral, Bedtime, # 180 tab(s), Refills(s) 2, Pharmacy: [facility]/pharmacy #[id number], 190, cm, 10/06/21 11:26:00 EDT, Height/Length Dosing, 175, kg, 10/06/21 11:26:00 EDT, Weight Dosing Start Date: 10/06/21 Status: Ordered Start: 10-06-2021 take 1 tablet by jason th three times daily DDAVP 0.2 mg oral tablet 0.2 mg = 1 tab(s), Oral, TID, # 90 tab(s), Refills(s) 2, Pharmacy: [facility]/pharmacy #[id number], ignacio Lindsey, 10/06/21 11:26:00 EDT, Height/Length Dosing, 175, kg, 10/06/21 11:26:00 EDT, Weight Dosing Start Date: 10/06/21 Status: Ordered Start: 06-09-2021 take 1 tablet by jason once daily DDAVP 0.2 mg oral tablet 0.2 mg = 1 tab(s), Oral, Daily, # 30 tab(s), Refills(s) 11, Pharmacy: [facility]/pharmacy #[id number], 190, ignacio, 06/09/21 13:52:00 EDT, Height/Length [...] Start: 10-05-2020 take 1 capsule by mo [facility] once daily Fluoxetine (Prozac) 20 mg capsule [...] day(s), # 60 cap(s), Refills(s) 6, Pharmacy: [facility]/pharmacy #[id number], 190, cm, 11/23/22 11:45:00 EDT, Height/Length [...] Daily, # 30 tab(s), Refills(s) 11, Pharmacy: [facility]/pharmacy #[id number], 190, cm, 12/15/21 14:21:00 EDT, Height/Length Dosing, 175, kg, 12/15/21 14:21:00 EDT, Weight Dosing Start Date: 12/15/21 Status: Ordered sulfamethoxazole 800 mg / trimethoprim 160 mg oral tablet (1 source) Dihydrofolate Reductase Inhibitor Antibacterial, Sulfonamide Antimicrobial Start: 07-14-19 End: 07-19-19 Bactrim D.S. 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] Onset: 3 Episodic Other aftercare (1 source) Other mcc (current) drug therapy; Translations: [OTH DIESEL ENGINE MECHANIC CURRENT DRUG THERAPY] Onset: 3 Episodic Other aftercare (1 source) technician terminal and repeater (current) use of insulin; Translations: [INTERMEDIATE CURRENT USE OF INSULIN] Onset: 3 Episodic Other aftercare (1 source) correction (current) use of oral hypoglycemic drugs; Translations: [INTERMEDIATE USE ORAL HYPOGLYCEMIC DX] Onset: 3 Episodic [...] Onset: 01-06-2022 Episodic Other aftercare (1 source) technician terminal and repeater (current) use of anticoagulants; Translations: [DIESEL ENGINE MECHANIC CURRNT USE ANTICOAGULANTS] Onset: 02-06-2022 Episodic Other [...] Facility Pre-Certification Formon Pre-Certification Form [id number]#1 .00CD:127 [facility] Lab Reportson 12-04-2022 Lab Reports [id number]#1 .00CD:127 Normal [facility] Ambulatory Visit Summaryon 0 11-23-2022 Ambulatory Visit Summary Normal [facility] Patient Educationon 11-24-19 Patient Education Normal [facility] Urology Office/Clinic Noteon 11-23-2022 Urology Office/Clinic Note Normal [facility] Comment on above: Result Comment: Elec tronically Signed By: Patricio CHAKRABORTY MD\.br\Date and Time Signed: 11/23/22 13:02 EDT\.br\Electronically Co-Signed By: Tara Lee\.br\Date and Time Co-Signed: 11/23/22 13:00 EDT Ambulatory Visit Summaryon 0 08-17-2022 Ambulatory Visit Summary Normal [facility] Patient Educationon 08-18-[address] [facility] Physician Referralon 023 Physician Referral [id number] .00CD:127 Normal [facility] Urology Office/Clinic Noteon 08-17-2022 Urology Office/Clinic Note [facility] Comment on above: Result Comment: Elec tronically Signed By: Patricio CHAKRABORTY MD\.br\Date and Time Signed: 08/17/22 11:40 EDT\.br\Electronically Co-Signed By: Germaine Mccain\.br\Date and Time Co-Signed: 08/17/22 11:37 EDT C Urineon 07-14-2022 Bacteria identified Cx Nom (U) Normal [facility] Comment on above: Performed By: #### 2 [id number], [id number] ####[facility] [address] [place] [address] BMPon 07-13-2022 Anion gap [Moles/Vol] 12 mmol/L Normal 6-16 [facility] Comment on above: Performed By: #### 1 [id number], [id number] ####[facility] [address] [place] [address] Calcium [Mass/Vol] 8.9 mg/dL Normal 8.9-11.1 [facility] Comment on above: Performed By: #### 1 [id number], [id number] ####[facility] [address] [place] [address] Chloride [Moles/Vol] 102 mmol/L Normal 101-111 [facility] Comment on above: Performed By: #### 1 [id number], [id number] ####[facility] [address] [place] [address] CO2 [Moles/Vol] 24 mmol/L Normal 21-31 [facility] Comment on above: Performed By: #### 1 [id number], [id number] ####[facility] [address] [place] [address] Creatinine [Mass/Vol] 0.6 mg/dL Normal 0.5-1.3 [facility] Comment on above: Performed By: #### 1 [id number], [id number] ####[facility] [address] [place] [address] Glucose [Mass/Vol] 259 mg/dL High 55-199 [facility] Comment on above: Result Comment: If t his glucose result represents a fasting glucose, interpretation should refer to the following reference range: 55-99 mg/dL Performed By: #### 1 [id number], [id number] ####[facility] [address] [place] [address] Potassium [Moles/Vol] 3.9 mmol/L Normal 3.5-5.3 [facility] Comment on above: Performed By: #### 1 [id number], [id number] ####[facility] [address] [facility] [address] Sodium [Moles/Vol] 134 mmol/L Low 135-145 [facility] Comment on above: Performed By: #### 1 [id number], [id number] ####[facility] [address] [place] [address] Urea nitrogen [Mass/Vol] 14 mg/dL Normal 5-21 [facility] Comment on above: Performed By: #### 1 [id number], [id number] ####[facility] [address] [place] [address] Urea nitrogen/Creatinine [Mass ratio] 23 No Units High 10-20 [facility] Comment on above: Performed By: #### 1 [id number], [id number] ####[facility] [address] [place] [address] CHEMISTRYOrdered By: Lab ROP User on 07-13-2022 Glucose [Mass/Vol] 292 mg/dL High 55 - 99 mg/dL [facility] POC Subsection Comment on above: Result Comment: Shukri snadoval RN/ POC Device SN [id number] Invalid Interpretation Code [facility] POC Subsection POC User ID [id number] Invalid Interpretation Code [facility] POC Subsection POC Username PALAK HINSON Invalid Interpretation Code [facility] POC Subsection Glucose [Mass/Vol] 238 mg/dL High 55 - 99 mg/dL [facility] POC Subsection Comment on above: Result Comment: Shukri sandoval RN/ POC Device SN [id number] Invalid Interpretation Code [facility] POC Subsection POC User ID [id number] Invalid Interpretation Code [facility] POC Subsection POC Username PALAK HINSON Invalid Interpretation Code [facility] POC Subsection CHEMISTRYOrdered By: SYSTEM SYSTEM on 07-13-2022 Anion gap [Moles/Vol] 12 mmol/L Normal 6 - 16 mEq/L [facility] Remisol Calcium [Mass/Vol] 8.9 mg/dL Normal 8.9 - 11. 1 mg/dL [facility] Remisol Chloride [Moles/Vol] 102 mmol/L Normal 101 - 1 11 mmol/L FT Remisol CO2 [Moles/Vol] 24 mmol/L Normal 21 - 31 mmol/L [facility] Remisol Creatinine [Mass/Vol] 0.6 mg/dL Normal 0.5 - 1.3 mg/dL [facility] Remisol GFR/1.73 sq M.predicted among non-blacks MDRD (S/P/Bld) [Vol rate/Area] 131 mL/min/1.73 m2 Normal >=59mL/min/ 1.73 m2 [facility] Chem S Glucose [Mass/Vol] 259 mg/dL High 55 - 199 mg/dL [facility] Remisol Potassium [Moles/Vol] 3.9 mmol/L Normal 3.5 - 5.3 mmol/L [facility] Remisol Sodium [Moles/Vol] 134 mmol/L Low 135 - 145 mmol/L [facility] Remisol Urea nitrogen [Mass/Vol] 14 mg/dL Normal 5 - 21 mg/dL [facility] Remisol Urea nitrogen/Creatinine [Mass ratio] 23 mg/mg High 10 - 20 [facility] Remisol Capillary Glucose POCon 05-0 Glucose [Mass/Vol] 292 mg/dL High 55-99 [facility] Comment on above: Result Comment: Shukri FROST Performed By: #### 2 [id number] ####[facility] [address] [place] [address] Glucose [Mass/Vol] 238 mg/dL High 55-99 [facility] Comment on above: Result Comment: Shukri FROST Performed By: #### 2 [id number] ####[facility] [address] [place] [address] Discharge Instructionson Discharge Instructions [id number]#1. 00CD:127 Normal [facility] Discharge Note-Nursingon Discharge Note-Nursing Normal [facility] Ferritinon 07-13-2022 Ferritin [Mass/Vol] 126 ng/mL Normal 24-336 [facility] Comment on above: Result Comment: NORM ALS MEN <30 YRS 16-132 ng/mL MEN >30 YRS 8-338 ng/mL WOMEN (PREMEN) 6-104 ng/mL WOMEN (POSTMEN) 12-210 ng/mL Performed By: #### 1 [id number], [id number], [id number], 8270911, [id number] ####[facility] [address] [place] [address] Inpatient Clinical Summaryon 07-13-2022 Inpatient Clinical Summary Normal [facility] Inpatient Patient Summaryon 07-13-2022 Inpatient Patient Summary Normal [facility] Inpatient Patient Summary Normal [facility] Interdisciplinary Note - Kane e Manageron 07-13-2022 Interdisciplinary Note - Armoring Machine Operator Normal [facility] Comment on above: Result Comment: Elec tronically Signed By: Quang CEDILLO, Evie\.br\Date and Time Signed: 07/13/22 11:37 EDT Patient Education - Texton 0 07-13-2022 Patient Education - Text Normal [facility] eGFRon 07-13-2022 GFR/1.73 sq M.predicted among non-blacks MDRD (S/P/Bld) [Vol rate/Area] 131 mL/min/1.73 m2 Normal >=59 [facility] Comment on above: Order Comment: Order added by Discern Expert. Result Comment: Application Infrastructure Engineer julián kidney disease could be indicated at eGFR's of less than 60 mL/min/1.73m2. Kidney failure is indicated at less than 15 mL/min/1.73m2. Performed By: #### 1 [id number], [id number] ####[facility] [address] [place] [address] BNPon 07-12-2022 Natriuretic peptide B (Bld) [Mass/Vol] pg/mL Normal 5-80 [facility] Comment on above: Performed By: #### 1 [id number] ####[facility] [address] [place] [address] CHEMISTRYOrdered By: Lab ROP User on 07-12-2022 Glucose [Mass/Vol] 284 mg/dL High 55 - 99 mg/dL [facility] POC Subsection Comment on above: Result Comment: Pamela fleming Meter POC Device SN [id number] Invalid Interpretation Code [facility] POC Subsection POC User ID [id number] Invalid Interpretation Code [facility] POC Subsection POC Username ARGELIA SHARIF Invalid Interpretation Code [facility] POC Subsection CHEMISTRYOrdered By: Cass Ryan on 07-12-2022 Natriuretic peptide B (Bld) [Mass/Vol] pg/mL Normal 5 - 80 pg/mL [facility] HemeManSS CHEMISTRYOrdered By: SYSTEM SYSTEM on 07-12-2022 CRP [Mass/Vol] 6.3 mg/dL High <=1.9mg/dL FT Remis ol Ferritin [Mass/Vol] 126 ng/mL Normal 24 - 336 ng/mL FT Remisol LDH [Catalytic activity/Vol] 160 [iU]/d Normal 93 - 218 Int._Unit/L FT Remisol Procalcitonin 0.10 ng/mL Normal 0.00 - 0.50 ng/mL [facility] Remisol Troponin I.cardiac [Mass/Vol] pg/mL Low 15.90 - 38.40 pg/mL [facility] Remisol COVID-19 ([facility])on 07-12-2022 Performing Instrument FT Waqas 2 Normal Fis [facility] Comment on above: Performed By: #### 2 [id number] ####[facility] [address] [place] [address] SARS-CoV-2 (COVID-19) RNA ECTOR+probe Ql (Resp) Not detected Normal Not Detected [facility] Comment on above: Result Comment: This test result should be correlated with clinical presentations and medical history by a healthcare provider to determine its clinical significance.This assay was performed by a reverse transcriptase real-time polymerase chain reaction (rt PCR) method on the [employer] system. This test has been authorized only [...] or revoked sooner. Performed By: #### 2 [id number] ####[place] [address] SARS-CoV-2 (COVID-19) RNA ECTOR+probe Ql (Unsp spec) Pass Normal Pass [facility] Comment on above: Performed By: #### 2 [id number] ####[place] [address] Specimen source Nom (Unsp spec) Nasal Normal [facility] Comment on above: Performed By: #### 2 [id number] ####[place] [address] ADMITTED TO INTENSIVE CARE UNIT FOR CONDITION OF INTEREST:FIND:PT: NO Normal [facility] Comment on above: Performed By: #### 2 [id number] ####[place] [address] EMPLOYED IN A HEALTHCARE SETTING:FIND:PT: NO Normal [facility] Comment on above: Performed By: #### 2 [id number] ####[place] [address] FIRST TEST FOR CONDITION OF INTEREST:FIND:PT: Unknown Normal [facility] Comment on above: Performed By: #### 2 [id number] ####[place] [address] HAS SYMPTOMS RELATED TO CONDITION OF INTEREST:FIND:PT: Unknown Normal [facility] Comment on above: Performed By: #### 2 [id number] ####[place] [address] HOSPITALIZED FOR CONDITION OF INTEREST:FIND:PT: YES Normal [facility] Comment on above: Performed By: #### 2 [id number] ####[place] [address] STATUS:FIND:PT: NO Normal [facility] Comment on above: Performed By: #### 2 [id number] ####[facility] [address] [place] [address] RESIDES IN A [facility] CARE SETTING:FIND:PT: NO Normal [facility] Comment on above: Performed By: #### 2 [id number] ####[facility] [address] [place] [address] CRPon 07-12-2022 CRP [Mass/Vol] 6.3 mg/dL High <=1.9 [facility] Comment on above: Performed By: #### 1 [id number], [id number], 3129288, 7744540, [id number] ####[facility] [address] [place] [address] CT Head or Brain w/o Contras ton 07-12-2022 CT Head or Brain w/o Contrast Normal [facility] CT Spine Cervical w/o Contra ston 07-12-2022 CT Spine Cervical w/o Contrast Normal [facility] CTA Cheston 07-12-2022 CTA Chest Normal [facility] Capillary Glucose POCon Glucose [Mass/Vol] 284 mg/dL High 55-99 [facility] Comment on above: Result Comment: Pamela fleming Meter Performed By: #### 2 [id number] ####[facility] [address] [place] [address] Glucose [Mass/Vol] 378 mg/dL High -99 [facility] Comment on above: Performed By: #### 2 [id number] ####[facility] [address] [place] [address] Glucose [Mass/Vol] 296 mg/dL High 55-99 [facility] Comment on above: Performed By: #### 2 [id number] ####[facility] [address] [place] [address] Glucose [Mass/Vol] 324 mg/dL High 55-99 [facility] Comment on above: Result Comment: Shukri sandoval RN/ Performed By: #### 2 [id number] ####[facility] [address] [place] [address] Glucose [Mass/Vol] 409 mg/dL High 55-99 [facility] Comment on above: Result Comment: Shukri sandoval RN/ Performed By: #### 2 [id number] ####[facility] [address] [place] [address] Consent for Treatmenton 05 Consent for Treatment [id number]#1 .00CD:127 Normal [facility] ED Clinical Summaryon 2022 ED Clinical Summary Normal Jessica [facility] ED Note-Physicianon 07-13-19 ED Note-Physician Normal [facility] Comment on above: Result Comment: Elec tronically Signed By: Marietta Guerrero DObr\Date and Time Signed: 07/12/22 01:02 EDT ED Patient Education Noteon 07-12-2022 ED Patient Education Note Normal [facility] ED Patient Summaryon 023 ED Patient Summary Normal [facility] EMS Documentationon 07-13-19 EMS Documentation Normal [facility] EMS Documentation Normal [facility] Influenza A&B Agon Influenzae A Ag Negative Normal Negative [facility] Comment on above: Performed By: #### 1 [id number], [id number] ####[facility] [address] [place] [address] Influenzae B Ag Negative Normal Negative [facility] Comment on above: Result Comment: Test sensitivity and specificity vary for age group, specimen type, antigen types, and prevalence of disease. Test results must be evaluated in conjunction with other clinical data available to the physician. Individuals who received nasally administered Influenza A vaccine may have positive test results up to 3 days after vaccination. Performed By: #### 1 [id number], [id number] ####[facility] [address] [place] [address] Insurance Correspondence Off ice07-12-2022 Insurance Correspondence Office [id number]# 1.00CD:127 Normal [facility] Interdisciplinary Note - Kane e Manageron 07-12-2022 Interdisciplinary Note - Armoring Machine Operator Normal [facility] Comment on above: Result Comment: Elec tronically Signed By: Cass Loera.hilda\Date and Time Signed: 07/12/22 12:26 EDT LDHon 07-12-2022 LDH [Catalytic activity/Vol] 160 Int._Unit/L Normal 93-218 [facility] Comment on above: Performed By: #### 1 3548878, 4272735, 7051133, 9899682, [id number] ####[facility] [address] [employer] Systemssharon [place] [address] Monitor Recordon 07-12-2022 Monitor Record [id number]# 1.00CD:127 Normal [facility] Monitor Record [id number]# 1.00CD:127 Normal [facility] Monitor Record [id number]# 1.00CD:127 Normal [facility] Procalcitoninon 07-12-2022 Procalcitonin .10 ng/mL Normal .00-.50 [facility] Comment on above: Result Comment: <0.5 [...] to 24 hours. Performed By: #### 1 [id number], 4647626, 7236144, 1480115, [id number] ####[facility] [address] [employer] [place] [address] RAD - Preliminary Cat Scan R eporton 07-12-2022 RAD - Preliminary Cat Scan Report [id number]#1 .00CD:127 Normal [facility] Rapid COVID Antigen ([facility])on 07-12-2022 Rapid COV Int NEG Ctl Pass Normal [facility] Comment on above: Performed By: #### 1 [id number], [id number] ####[facility] [address] [place] [address] Rapid COV Int POS Ctl Pass Normal [facility] Comment on above: Performed By: #### 1 [id number], [id number] ####[facility] [address] [place] [address] SARS-CoV+SARS-CoV-2 (COVID-19) Ag IA.rapid Ql (Resp) Not detected Normal Not Detected [facility] Comment on above: Result Comment: The [employer]? System for Rapid Detection of SARS-CoV-2 is [...] or revoked sooner. Performed By: #### 1 [id number], [id number] ####[facility] [address] [place] [address] Troponin 3 Hr.on 07-12-2022 Troponin I.cardiac [Mass/Vol] 2.30 pg/mL Low 15.90-38.40 [facility] Comment on above: Result Comment: The 95% CI (Confidence Interval) PPV (Positive Predictive Value) for myocardial infarction in females is 38 pg/mL, in males 51 pg/mL. The results should be used in conjunction with clinical conditions of myocardial infarction.(Access High Sensitivity Troponin I Instructions For Use, [employer], October 2017) Performed By: #### 1 [id number] ####[facility] [address] [place] [address] Troponin 6 Hr.on 07-12-2022 Troponin I.cardiac [Mass/Vol] ng/mL Low 15.90-38.40 [facility] Comment on above: Result Comment: The 95% CI (Confidence Interval) PPV (Positive Predictive Value) for myocardial infarction in females is 38 pg/mL, in males 51 pg/mL. The results should be used in conjunction with clinical conditions of myocardial infarction.([employer] High Sensitivity Troponin I Instructions For Use, [employer], October 2017) Performed By: #### 1 [id number], 9663721, 9688162, 0848504, [id number] ####[address] [place] [address] UA With Cult Reflexon 2022 Bacteria LM Ql (Urine sed) 1+ /HPF Abnormal Trace [facility] Comment on above: Performed By: #### 2 [id number], [id number] ####[facility] [address] [place] [address] Bilirubin Ql (U) Negative Normal Negative [facility] Comment on above: Performed By: #### 2 983994, [id number] ####[facility] [address] [place] [address] Clarity (U) CLEAR Normal Clear [facility] Comment on above: Performed By: #### 2 047619, [id number] ####[facility] [address] [place] [address] Color (U) YELLOW Normal Yellow [facility] Comment on above: Performed By: #### 2 158066, [id number] ####[facility] [address] [place] [address] Epithelial cells.squamous LM.HPF (Urine sed) [#/Area] 3-4 Normal 0-2 [facility] Comment on above: Performed By: #### 2 039653, [id number] ####[facility] [address] [place] [address] Glucose Test strip (U) [Mass/Vol] 2+ Abnormal Negative [facility] Comment on above: Performed By: #### 2 601989, [id number] ####[facility] [address] [place] [address] Hemoglobin Ql (U) TRACE Abnormal Negative [facility] Comment on above: Performed By: #### 2 275676, [id number] ####[facility] [address] [place] [address] Ketones (U) [Mass/Vol] Negative Normal Negative [facility] Comment on above: Performed By: #### 2 165552, [id number] ####[facility] [address] [place] [address] [place].plasma/[place]. RBC (Bld) [Mass ratio] 4-20 Normal 0-3 [facility] Comment on above: Performed By: #### 2 431838, [id number] ####[facility] [address] [facility] [place] [address] Mucus Ql (Urine sed) 1+ Normal [facility] Comment on above: Performed By: #### 2 853558, 11384753 ####[facility] [address] [place] [address] Nitrite Ql (U) Positive Abnormal Negative [facility] Comment on above: Performed By: #### 2 068626, [id number] ####[address] [address] pH (U) 6.0 [pH] Invalid Interpretation Code 5.0-9.0 [facility] Comment on above: Performed By: #### 2 298832, [id number] ####[address] [address] Protein (U) [Mass/Vol] 2+ Abnormal Negative [facility] Comment on above: Performed By: #### 2 253092, [id number] ####[address] [address] Specific gravity (U) [Rel density] 1.020 Invalid Interpretation Code 1.005-1.030 [facility] Comment on above: Performed By: #### 2 970288, [id number] ####[address] [address] Type of Urine collection method Clean Catch Normal [facility] Comment on above: Performed By: #### 2 403683, [id number] ####[address] [address] Urobilinogen Qn (U) 0.2 {Chintan'U}/dL Normal 0.0-1.0 [facility] Comment on above: Performed By: #### 2 548247, [id number] ####[address] [address] WBC Auto Ql (U) Negative Normal Negative [facility] Comment on above: Performed By: #### 2 856305, [id number] ####[address] [address] WBC LM.HPF (Urine sed) [#/Area] 6-15 Abnormal 0-5 [facility] Comment on above: Performed By: #### 2 725513, [id number] ####[facility] [address] [place] [address] XR Chest Single Viewon 07-12 XR Chest Single View Normal Fish er [facility] Auto Diffon 07-11-2022 Basophils/100 WBC (Bld) 0.2 % Normal 0.0-2.0 F [facility] Comment on above: Order Comment: Order Added by Discern Expert. Performed By: #### 2 778955, 60077600, 5922068, 1051507, 1536353, 9461842, 49555034, 4595882, 4324343, 15222533 ####[facility] [address] [place] [address] Basophils/Leukocytes Auto (Bld) [Pure # fraction] 0.0 E9/L Normal 0.0-0.2 [facility] Comment on above: Order Comment: Order Added by Discern Expert. Performed By: #### 2 757957, 19235169, 3048450, 4726923, 7359870, 1963588, 49128936, 8859325, 1587761, 08199879 ####[facility] [address] [place] [address] Eosinophils/100 WBC (Bld) 0.3 % Normal 0.0-8.0 [facility] Comment on above: Order Comment: Order Added by Discern Expert. Performed By: #### 2 467147, 81184837, 9078165, 9942533, 2881211, 2614135, 69134851, 3660100, 0714337, 46251076 ####[facility] [address] [place] [address] Eosinophils/Leukocytes Auto (Bld) [Pure # fraction] 0.0 E9/L Normal 0.0-0.5 [facility] Comment on above: Order Comment: Order Added by Discern Expert. Performed By: #### 2 542313, 39587484, 0346775, 5539251, 3449709, 7920544, 34102608, 4511256, 0713205, 73335023 ####[address] [place] [address] Lymphocytes/100 WBC (Bld) 15.1 % Normal 14.0-50.0 [facility] Comment on above: Order Comment: Order Added by Discern Expert. Performed By: #### 2 376452, 85241676, 2039780, 1307924, 5534001, 1256552, 96711400, 5914695, 4798107, 37918454 ####[address] [place] [address] Lymphocytes/Leukocytes Auto (Bld) [Pure # fraction] 1.0 E9/L Normal 1.0-4.0 [facility] Comment on above: Order Comment: Order Added by Discern Expert. Performed By: #### 2 991959, 38336789, 4133555, 0283055, 2343651, 2628765, 94573856, 0606380, 1153308, 45462875 ####[address] [address] Monocytes/100 WBC (Bld) 8.3 % Normal 4.0-14.0 [facility] Comment on above: Order Comment: Order Added by Discern Expert. Performed By: #### 2 426896, 98724191, 1777423, 4717399, 9058332, 9087648, 59433992, 1821280, 9256877, 38663352 ####[address] [place] [address] Monocytes/Leukocytes Auto (Bld) [Pure # fraction] 0.6 E9/L Normal 0.2-1.0 [facility] Comment on above: Order Comment: Order Added by Discern Expert. Performed By: #### 2 052005, 52618030, 9104144, 9406833, 4539796, 3837585, 17133608, 3713858, 2840768, 67184401 ####[address] [place] [address] Neutrophils/100 WBC (Bld) 76.1 % High 36.0-75.0 [facility] Comment on above: Order Comment: Order Added by Discern Expert. Performed By: #### 2 894273, 20005348, 6254458, 5641387, 2943947, 3575980, 64785265, 6390611, 8808829, 04253701 ####[facility] [address] [place] [address] Neutrophils/Leukocytes Auto (Bld) [Pure # fraction] 5.2 E9/L Normal 2.0-7.5 [facility] Comment on above: Order Comment: Order Added by Discern Expert. Performed By: #### 2 167460, 18156166, 3344657, 9328238, 1393254, 7230237, 82173949, 8021475, 7670609, 17116860 ####[facility] [address] [place] [address] BMPon 07-11-2022 Creatinine [Mass/Vol] 1.1 mg/dL Normal 0.5-1.3 [facility] Comment on above: Performed By: #### 2 345050, 38255587, 0685752, 3263938, 1197568, 2806858, 31162258, 5735609, 2330584, 35971227 ####[facility] [address] [place] [address] Urea nitrogen [Mass/Vol] 11 mg/dL Normal 5-21 [facility] Comment on above: Performed By: #### 2 889980, 38466080, 5541054, 2909705, 2305289, 6535169, 06356201, 4537894, 5052753, 12061985 ####[facility] [address] [place] [address] Urea nitrogen/Creatinine [Mass ratio] 10 No Units Normal 10-20 [facility] Comment on above: Performed By: #### 2 515035, 58637306, 2010062, 2391630, 0192473, 5428538, 11717945, 7782228, 0921338, 78042726 ####[facility] [address] [facility] [address] Anion gap [Moles/Vol] 16 mmol/L Normal 6-16 [facility] Comment on above: Performed By: #### 2 907818, 93215290, 2848404, 1974167, 4499699, 8589604, 82650057, 8635377, 1336391, 47002611 ####[facility] [address] [place] [address] Calcium [Mass/Vol] 8.9 mg/dL Normal 8.9-11.1 [facility] Comment on above: Performed By: #### 2 272330, 91620431, 1851259, 2441136, 9565103, 3298600, 82510328, 2754333, 6172146, 46694065 ####[facility] [address] [place] [address] Chloride [Moles/Vol] 98 mmol/L Low 101-111 [facility] Comment on above: Performed By: #### 2 507857, 00845960, 8101085, 6972683, 8191912, 4804484, 46080650, 5608356, 6073138, 84313095 ####[facility] [address] [place] [address] CO2 [Moles/Vol] 24 mmol/L Normal 21-31 [facility] Comment on above: Performed By: #### 2 107426, 11811690, 1885910, 7634865, 0912302, 8666273, 17772268, 0460854, 4429212, 91004484 ####[facility] [address] [place] [address] Glucose [Mass/Vol] 309 mg/dL High 55-199 [facility] Comment on above: Result Comment: If t his glucose result represents a fasting glucose, interpretation should refer to the following reference range: 55-99 mg/dL Performed By: #### 2 344253, 65899973, 8907596, 7463409, 8017739, 0833928, 11687756, 9144542, 9178060, 47353663 ####[facility] [address] [place] [address] Potassium [Moles/Vol] 4.7 mmol/L Normal 3.5-5.3 [facility] Comment on above: Performed By: #### 2 913487, 74195206, 5576135, 2342894, 9730674, 9970208, 62548517, 1660542, 9777340, 84817657 ####[facility] [address] [place] [address] Sodium [Moles/Vol] 133 mmol/L Low 135-145 [facility] Comment on above: Performed By: #### 2 809810, 70112700, 1931126, 2547666, 6075135, 2190900, 21304221, 6773386, 0431886, 39543767 ####[address] [place] [address] CBC w/ Auto Diffon 3 Erythrocyte distribution width (RBC) [Ratio] 14.5 % High 10.9-14.2 [facility] Comment on above: Performed By: #### 2 752254, 84333874, 2638734, 3524075, 4326135, 4687074, 25579794, 1597732, 0579369, 80979157 ####[address] [place] [address] Hematocrit (Bld) [Volume fraction] 44.2 % Normal 37.7-49.0 [facility] Comment on above: Performed By: #### 2 660806, 93764517, 9202926, 6870999, 3694500, 4192683, 63331439, 5648508, 7163183, 63425540 ####[address] [place] [address] Hemoglobin (Bld) [Mass/Vol] 15.0 g/dL Normal 13.5-17.5 [facility] Comment on above: Performed By: #### 2 685919, 52651747, 9580315, 4119186, 1017566, 2183322, 04351402, 0671834, 6677869, 92415633 ####[facility] [address] [place] [address] MCH (RBC) [Entitic mass] 31.8 pg Normal 27.0-34.0 [facility] Comment on above: Performed By: #### 2 175068, 71551315, 0487897, 1866808, 8526288, 4256300, 53623557, 2914511, 2896698, 08510671 ####[address] [place] [address] MCHC (RBC) [Mass/Vol] 34.0 g/dL Normal 31.4-36.0 [facility] Comment on above: Performed By: #### 2 081869, 42244581, 1750722, 4296015, 4868184, 6475402, 28492159, 4717921, 0528551, 96552710 ####[address] [address] MCV (RBC) [Entitic vol] 93.3 fL Normal 80.0-100.0 F [facility] Comment on above: Performed By: #### 2 366030, 19761751, 4884036, 6090193, 0863445, 3648921, 88801748, 5689602, 7397942, 32120963 ####[facility] [address] [place] [address] Platelet mean volume (Bld) [Entitic vol] 9.4 fL Normal 6.4-10.8 [facility] Comment on above: Performed By: #### 2 580524, 59470534, 9763933, 2742727, 5474266, 0147600, 45970894, 1594328, 2537884, 04945813 ####[address] [place] [address] Platelets (Bld) [#/Vol] 191.0 E9/L Normal 150.0-500.0 [facility] Comment on above: Performed By: #### 2 970686, 65170075, 9690971, 8118053, 4840608, 2384284, 79881777, 6241874, 8070327, 39795253 ####[facility] [address] [place] [address] RBC (Bld) [#/Vol] 4.7 E12/L Normal 4.3-5.9 [facility] Comment on above: Performed By: #### 2 536713, 90335102, 6386631, 6457492, 3343695, 9163088, 27722479, 9300321, 6514838, 30808683 ####[facility] [address] [place] [address] WBC corrected for nucl RBC Auto (Bld) [#/Vol] 6.8 E9/L Normal 4.0-11.0 [facility] Comment on above: Performed By: #### 2 917559, 62720166, 0690453, 4879976, 0415306, 5016030, 98812486, 5741176, 0895440, 00728203 ####[facility] [address] [place] [address] CHEMISTRYOrdered By: SYSTEM SYSTEM on 07-11-2022 Troponin [...] ratio] 10 mg/mg Normal 10 - 20 [facility] Remisol COAGULATIONOrdered By: Aura Qiu on 07-11-2022 aPTT Coag (PPP) [Time] 30.5 s Normal 25.1 - 36.5 second(s) [facility] Auto Coag Fibrin D-dimer FEU (PPP) [Mass/Vol] 1690 ng/mL FEU Invalid Interpretation Code 215 - 500 ng/mL FEU [facility] Auto Coag Comment on above: Result Comment: Resu lts Called To er dr guerrero By ts And Read Back For Confirmation On 07/11/2022 20:41:56 EDT Results Verified By Repeat Analysis INR Coag (PPP) [Relative time] 1.1 {INR} Invalid Interpretation Code [facility] Auto Coag PT Coag (PPP) [Time] 12.0 s Normal 9.4 - 1 2.5 second(s) [facility] Auto Coag Capillary Glucose POCon Glucose [Mass/Vol] 317 mg/dL High 55-99 [facility] Comment on above: Result Comment: Shukri sandoval RN/ Performed By: #### 2 46819074 ####[facility] [address] D-Dimeron 07-11-2022 Fibrin D-dimer FEU (PPP) [Mass/Vol] 1690 [id number] Abnormal 215-500 [facility] Comment on above: Result Comment: Resu lts [...] skin infectionsLiver cirrhosisPregnancy Performed By: #### 2 431506, 59097581, 6947040, 6100209, 1935490, 9559070, 13971147, 0514350, 2943183, 15486512 ####Julio César [facility] [address] [place] [address] ED Note-Nursingon 07-11-2022 ED Note-Nursing Normal [facility] HEMATOLOGYOrdered By: SYSTEM SYSTEM on 07-11-2022 [...] 4.7 E12/L Normal 4.3 - 5.9 E12/L [facility] HemeAutoSS WBC corrected for nucl RBC Auto (Bld) [#/Vol] 6.8 E9/L Normal 4.0 - 11.0 E9/L [facility] HemeAutoSS Hep Func Panelon 07-11-2022 Albumin [Mass/Vol] 3.8 g/dL Normal 3.3-5.0 [facility] Comment on above: Performed By: #### 2 800959, 68765930, 9660426, 2406617, 4269428, 8267866, 70558913, 9844918, 8656551, 16754585 ####[facility] [address] [place] [address] Albumin/Globulin (S) [Mass conc ratio] 1.0 Low 1.1-2.2 [facility] Comment on above: Performed By: #### 2 604687, 72571959, 0601539, 3371631, 1783237, 8263167, 58518110, 9952726, 7429323, 27263169 ####[facility] [address] [place] [address] ALP [Catalytic activity/Vol] 92 Int._Unit/L Normal 21-98 [facility] Comment on above: Performed By: #### 2 813452, 53931491, 4369320, 3883371, 8187593, 3843395, 88360198, 6724462, 9435021, 06733881 ####[facility] [address] [place] [address] ALT No additional P-5'-P [Catalytic activity/Vol] 37 Int._Unit/L Normal 6-46 [facility] Comment on above: Performed By: #### 2 765283, 09315989, 7044720, 5046495, 8604064, 9771918, 45196231, 6651039, 7690751, 27529526 ####[address] [address] AST [Catalytic activity/Vol] 28 Int._Unit/L Normal 5-43 [facility] Comment on above: Performed By: #### 2 466449, 63626753, 8844251, 5127817, 2078327, 1961312, 58973634, 2432023, 7598773, 11669207 ####[address] [address] Bilirubin [Mass/Vol] 1.2 mg/dL High 0.0-1.1 [facility] Comment on above: Performed By: #### 2 023269, 61829728, 7881003, 5905446, 0273665, 5780030, 07348683, 1744951, 6782379, 52680250 ####[address] [place] [address] Bilirubin.direct [Mass/Vol] 0.2 mg/dL Normal 0.1-0.4 [facility] Comment on above: Performed By: #### 2 269906, 28100757, 1397082, 6772067, 6489677, 2567641, 54923998, 2431318, 1751466, 55321704 ####[facility] [address] [place] [address] Bilirubin.indirect [Mass or moles/Vol] 1.0 mg/dL High 0.1-0.9 [facility] Comment on above: Performed By: #### 2 476741, 91114825, 0151906, 5678855, 6651517, 3422642, 58892101, 6694423, 2740676, 79897879 ####[facility] [address] [place] [address] Globulin (S) [Mass/Vol] 3.7 g/dL Normal 1.4-4.0 [facility] Comment on above: Performed By: #### 2 194303, 93589241, 0991255, 2020637, 3393283, 2609199, 86322422, 3629044, 5014201, 82875113 ####[facility] [address] [place] [address] Protein [Mass/Vol] 7.5 g/dL Normal 6.0-7.8 [facility] Comment on above: Performed By: #### 2 009121, 58988726, 3450705, 4020995, 5504278, 6335826, 49400804, 9646312, 8320762, 77452826 ####[facility] [address] [place] [address] Laboratory - Microbiology an d Antimicrobial susceptibilityOrdered By: Lupe Barnard on 07-11-2022 Bacteria identified Cx Nom (U) >100,000 cfu/ml Staphylococcus species Coagulase Positive [facility] MICRO OTHER TESTSOrdered By: Mariana Doyle on 07-11-2022 Influenzae A Ag Negative (07/11/22 10:22 PM) Normal Negative [facility] Man Sero Influenzae B Ag Negative (07/11/22 10:22 PM) Normal Negative [facility] Rapid COV Int NEG Ctl Pass (07/11/22 10:22 PM) Normal [facility] Rapid COV Int POS Ctl Pass (07/11/22 10:22 PM) Normal [facility] Man Sero SARS-CoV+SARS-CoV-2 (COVID-19) Ag IA.rapid Ql (Resp) Not Detected (07/11/22 10:22 PM) Normal Not Detected [facility] Man Sero Magnesiumon 07-11-2022 Magnesium [Mass/Vol] 1.4 mg/dL Normal 1.3-2.4 [facility] Comment on above: Performed By: #### 2 239810, 72761380, 2250963, 7843548, 9961538, 5047840, 46950136, 0557983, 9008649, 23331360 ####[facility] [address] [place] [address] Amite Screenon 07-11-2022 Heterophile Ab LA Ql (S) Negative Normal Negative [facility] Comment on above: Performed By: #### 2 933712, 67278331, 2773493, 9381945, 0490522, 6468886, 37031314, 6035271, 1020447, 17395433 ####[facility] [address] [place] [address] PT & PTTon 07-11-2022 aPTT Coag (PPP) [Time] 30.5 second(s) Normal 25.1-36.5 [facility] Comment on above: Result Comment: Para meter [...] the same coagulation reagent and instrumentation as [facility]. Currently there are no coagulation studies available worldwide for children to 14 days, and no normal ranges. Heparin therapeutic range (represented by Anti-Factor Xa activity of 0.2 - 0.4 U/mL) corresponds to PTT of 56.6 - 109.0 sec. Performed By: #### 2 081639, 09292509, 5614764, 2966891, 7275475, 1283026, 81624807, 6280123, 5194911, 97910809 ####[facility] [address] [place] [address] INR Coag (PPP) [Relative time] 1.1 {INR} Invalid Interpretation Code [facility] Comment on above: Result Comment: INR results are specifically intended to assess patients stabilized on long-term Anticoagulation therapy suggested INR?s ?Less Intensive Anticoagulation? 2.0 ? 3.0Conventional Range 3.0 ? 4.5 Performed By: #### 2 730140, 85800627, 3204464, 4555567, 6811469, 2853379, 25856446, 6923864, 9254700, 18061501 ####[facility] [address] [place] [address] PT Coag (PPP) [Time] 12.0 second(s) Normal 9.4-12.5 [facility] Comment on above: Result Comment: 15 d [...] the same coagulation reagent and instrumentation as [facility]. Currently there are no coagulation studies available worldwide for children to 14 days, and no normal ranges. Performed By: #### 2 219365, 25817102, 6459153, 9341015, 7005767, 0941215, 85962557, 9646579, 1376301, 97550594 ####[facility] [address] [place] [address] Pre-Arrival Noteon Pre-Arrival Note Normal [facility] Rapid COVID Antigen ([facility])on 07-11-2022 ADMITTED TO INTENSIVE CARE UNIT FOR CONDITION OF INTEREST:FIND:PT: NO Normal [facility] Comment on above: Performed By: #### 1 9528686, [id number] ####[place] [address] EMPLOYED IN A HEALTHCARE SETTING:FIND:PT: NO Normal [facility] Comment on above: Performed By: #### 1 8374332, [id number] ####[place] [address] FIRST TEST FOR CONDITION OF INTEREST:FIND:PT: YES Normal [facility] Comment on above: Performed By: #### 1 7436503, [id number] ####[place] [address] HAS SYMPTOMS RELATED TO CONDITION OF INTEREST:FIND:PT: YES Normal [facility] Comment on above: Performed By: #### 1 3789356, [id number] ####[place] [address] HOSPITALIZED FOR CONDITION OF INTEREST:FIND:PT: NO Normal [facility] Comment on above: Performed By: #### 1 6437549, [id number] ####[place] [address] STATUS:FIND:PT: NO Normal [facility] Comment on above: Performed By: #### 1 5287227, [id number] ####[place] [address] RESIDES IN [facility]TING:FIND:PT: NO Normal [facility] Comment on above: Performed By: #### 1 2771076, [id number] ####[place] [address] SEROLOGYOrdered By: Aura humphrey on 07-11-2022 Heterophile Ab LA Ql (S) Negative (07/11/22 8:19 PM) Normal Negative [facility] Man Sero Troponin 0 Hr.on 07-11-2022 Troponin I.cardiac [Mass/Vol] 4.40 pg/mL Low 15.90-38.40 [facility] Comment on above: Result Comment: The 95% CI (Confidence Interval) PPV (Positive Predictive Value) for myocardial infarction in females is 38 pg/mL, in males 51 pg/mL. The results should be used in conjunction with clinical conditions of myocardial infarction.(Access High Sensitivity Troponin I Instructions For Use, Savana Mabie, October 2017) Performed By: #### 2 212027, 57728710, 1511329, 4465847, 1906374, 2769397, 87075746, 3793483, 2209415, 27101015 ####[facility] [address] [place] [address] URINALYSISOrdered By: Cortez Doyle on 07-11-2022 Bacteria [...] PM) Normal Negative [facility] UA Auto SS [place].plasma/[place]. RBC (Bld) [Mass ratio] 4-20 /HPF Normal 0-3/HPF [facility] UA A uto SS Mucus Ql (Urine sed) 1+ (07/11/22 10:00 PM) Normal [facility] UA Auto SS Nitrite Ql (U) Positive *ABN* (07/11/22 10:00 PM) Invalid Interpretation Code Negative [facility] UA Auto SS pH (U) 6.0 *NA* (07/11/22 10:00 PM) Invalid Interpretation Code 5.0 - 9.0 [facility] UA Auto SS Protein (U) [Mass/Vol] 2+ *ABN* (07/11/22 10:00 PM) Invalid Interpretation Code Negative [facility] UA Auto SS Specific gravity (U) [Rel density] 1.020 *NA* (07/11/22 10:00 PM) Invalid Interpretation Code 1.005 - 1.030 [facility] UA Auto SS UA Spec Desc Clean Catch (07/11/22 10:00 PM) Normal [facility] UA Auto SS Urobilinogen Qn (U) 0.6664608 {Chintan'U}/dL Normal 0.0 - 1.0 EU/dL [facility] UA Auto SS WBC Auto Ql (U) Negative (07/11/22 10:00 PM) Normal Negative [facility] UA Auto SS WBC LM.HPF (Urine sed) [#/Area] 6-15 /HPF Invalid Interpretation Code 0-5/HPF [facility] UA Auto SS eGFRon 07-11-2022 GFR/1.73 sq M.predicted among non-blacks MDRD (S/P/Bld) [Vol rate/Area] 91 mL/min/1.73 m2 Normal >=59 [facility] Comment on above: Order Comment: Order added by Discern Expert. Result Comment: Application Infrastructure Engineer julián kidney disease could be indicated at eGFR's of less than 60 mL/min/1.73m2. Kidney failure is indicated at less than 15 mL/min/1.73m2. Performed By: #### 2 [id number], [id number], [id number], [id number] ####[facility] [id number] [place] [address] POINT OF CARE GLUCOSEon Glucose [Mass/Vol] 512 mg/dL Critically high 74-106 [facility] Comment on above: Result Comment: Resu lt Not Confirmed Performed By: #### S EDR #### [facility] [address] [address] [address] Travis Sanchez CBC AUTO DIFFon 06-19-2022 BASO # 0.0 103/ul Normal 0.0-0.1 [facility] Comment on above: Performed By: #### C BC #### [facility] [address] [address] [address] Travis Sanchez Basophils/100 WBC (Bld) 0.1 % Critically low 0.2-2.0 [facility] Comment on above: Performed By: #### C BC #### [facility] [address] [place] [address] Dr. Travis Sanchez EO # 0.0 103/ul Normal 0.0-0.7 [facility] Comment on above: Performed By: #### C BC #### [facility] [address] [place] [address] Dr. Travis Sanchez Eosinophils/100 WBC (Bld) 0.1 % Critically low 0.9-7.0 [facility] Comment on above: Performed By: #### C BC #### [facility] [address] [place] [address] Dr. Travis Sanchez Erythrocyte distribution width (RBC) [Ratio] 13.6 % Normal 11.0-15.0 [facility] Comment on above: Performed By: #### C BC #### [facility] [address] [place] [address] Dr. Travis Sanchez Hematocrit (Bld) [Volume fraction] 41.6 % Critically low 42.0-54.0 [facility] Comment on above: Performed By: #### C BC #### [facility] [address] [place] [address] Dr. Travis Sanchez Hemoglobin (Bld) [Mass/Vol] 13.9 g/dL Critically low 14.0-18.0 [facility] Comment on above: Performed By: #### C BC #### [facility] [address] [place] [address] Dr. Travis Sanchez IG # 0.05 10e3/ul Critically high 0.00-0.03 [facility] Comment on above: Performed By: #### C BC #### [facility] [address] [place] [address] Dr. Travis Sanchez IG % 0.5 % Normal 0.0-0.5 [facility] Comment on above: Performed By: #### C BC #### [facility] [address] [address] [address] Travis Sanchez LYMPH # 1.1 103/ul Critically low 1.2-3.8 [facility] Comment on above: Performed By: #### C BC #### [facility] [address] [address] [address] Travis Sanchez Lymphocytes/100 WBC (Bld) 12.2 % Critically low 20.5-60.0 [facility] Comment on above: Performed By: #### C BC #### [facility] [address] [place] [address] Dr. Travis Sanchez MANUAL DIFF REQ NO Normal [facility] Comment on above: Performed By: #### C BC #### [facility] [address] [place] [address] Dr. Travis Sanchez MCH (RBC) [Entitic mass] 31.2 pg Normal 25.9-34.0 [facility] Comment on above: Performed By: #### C BC #### [facility] [address] [place] [address] Dr. Travis Sanchez MCHC (RBC) [Mass/Vol] 33.4 g/dL Normal 29.9-35.2 [facility] Comment on above: Performed By: #### C BC #### [facility] [address] [place] [address] Dr. Travis Sanchez MCV (RBC) [Entitic vol] 93.3 fL Normal 80.0-94.0 [facility] Comment on above: Performed By: #### C BC #### [facility] [address] [address] [address] Travis Sanchez MONO # 0.5 103/ul Normal 0.3-0.8 [facility] Comment on above: Performed By: #### C BC #### [facility] [address] [place] [address] Dr. Travis Sanchez Monocytes/100 WBC (Bld) 5.3 % Normal 1.7-12.0 [facility] Comment on above: Performed By: #### C BC #### [facility] [address] [address] [address] Travis Sanchez NEUT # 7.5 103/ul Critically high 1.4-6.5 [facility] Comment on above: Performed By: #### C BC #### [facility] [address] [address] [address] Travis Sanchez Neutrophils/100 WBC (Bld) 81.8 % Critically high 43.0-75.0 [facility] Comment on above: Performed By: #### C BC #### [facility] [address] [address] [address] Travis Sanchez Platelet mean volume (Bld) [Entitic vol] 10.6 fL Normal 9.5-13.5 [facility] Comment on above: Performed By: #### C BC #### [facility] [address] [place] [address] Dr. Travis Sanchez PLT 255 103/ul Normal 150-450 [facility] Comment on above: Performed By: #### C BC #### [facility] [address] [address] [address] Travis Sanchez RBC 4.46 106/ul Critically low 4.70-6.10 [facility] Comment on above: Performed By: #### C BC #### [facility] [address] [address] [address] Travis Sanchez WBC 9.1 103/ul Normal 4.0-11.0 [facility] Comment on above: Performed By: #### C BC #### [facility] [address] [place] [address] Dr. Travis Sanchez CRPon 06-19-2022 CRP 1.6 mg/dL Critically high <=1.0 [facility] Comment on above: Performed By: #### S EDR #### [facility] [address] [address] [address] Travis Sanchez PROF CHEM 8 (BAS METB)on Anion gap [Moles/Vol] 13.2 mmol/L Normal [facility] Comment on above: Performed By: #### S EDR #### [facility] [address] [address] [address] Travis Sanchez Calcium [Mass/Vol] 9.3 mg/dL Normal 8.5-10.1 [facility] Comment on above: Performed By: #### S EDR #### [facility] [address] [address] [address] Travis Sanchez Chloride [Moles/Vol] 103 mmol/L Normal 98-107 [facility] Comment on above: Performed By: #### S EDR #### [facility] [address] [address] [address] Travis Sanchez CO2 [Moles/Vol] 24.3 mmol/L Normal 21.0-32.0 [facility] Comment on above: Performed By: #### S EDR #### [facility] [address] [place] [address] Dr. Travis Sanchez Creatinine [Mass/Vol] 0.72 mg/dL Normal 0.70-1.30 [facility] Comment on above: Performed By: #### S EDR #### [facility] [address] [place] [address] Dr. Travis Sanchez EGFR-AF MACANESE >60 Normal >=60 [facility] Comment on above: Performed By: #### S EDR #### [facility] [address] [place] [address] Dr. Travis Sanchez EGFR-NON AF MACANESE >60 Normal >=60 [facility] Comment on above: Performed By: #### S EDR #### [facility] [address] [place] [address] Dr. Travis Sanchez Glucose [Mass/Vol] 290 mg/dL Critically high 74-106 [facility] Comment on above: Performed By: #### S EDR #### [facility] [address] [place] [address] Dr. Travis Sanchez Potassium [Moles/Vol] 4.5 mmol/L Normal 3.5-5.1 [facility] Comment on above: Performed By: #### S EDR #### [facility] [address] [place] [address] Dr. Travis Sanchez Sodium [Moles/Vol] 136 mmol/L Normal 136-145 [facility] Comment on above: Performed By: #### S EDR #### [facility] [address] [place] [address] Dr. Travis Sanchez Urea nitrogen [Mass/Vol] 20.0 mg/dL Critically high 7.0-18.0 [facility] Comment on above: Performed By: #### S EDR #### [facility] [address] [place] [address] Dr. Travis Sanchez Urea nitrogen/Creatinine [Mass ratio] 27.8 mg/mg Normal [facility] Comment on above: Performed By: #### S EDR #### [facility] [address] [place] [address] Dr. Travis Sanchez CBC AUTO DIFFon 06-18-2022 BASO # 0.0 103/ul Normal 0.0-0.1 [facility] Comment on above: Performed By: #### S EDR #### [facility] [address] [place] [address] Dr. Travis Sanchez Basophils/100 WBC (Bld) 0.2 % Normal 0.2-2.0 [facility] Comment on above: Performed By: #### S EDR #### [facility] [address] [place] [address] Dr. Travis Sanchez EO # 0.0 103/ul Normal 0.0-0.7 [facility] Comment on above: Performed By: #### S EDR #### [facility] [address] [place] [address] Dr. Travis Sanchez Eosinophils/100 WBC (Bld) 0.4 % Critically low 0.9-7.0 [facility] Comment on above: Performed By: #### S EDR #### [facility] [address] [place] [address] Dr. Travis Sanchez Erythrocyte distribution width (RBC) [Ratio] 13.9 % Normal 11.0-15.0 [facility] Comment on above: Performed By: #### S EDR #### [facility] [address] [address] [address] Travis Sanchez Hematocrit (Bld) [Volume fraction] 42.0 % Normal 42.0-54.0 [facility] Comment on above: Performed By: #### S EDR #### [facility] [address] [place] [address] Dr. Travis Sanchez Hemoglobin (Bld) [Mass/Vol] 14.2 g/dL Normal 14.0-18.0 [facility] Comment on above: Performed By: #### S EDR #### [facility] [address] [place] [address] Dr. Travis Sanchez IG # 0.03 10e3/ul Normal 0.00-0.03 [facility] Comment on above: Performed By: #### S EDR #### [facility] [address] [place] [address] Dr. Travis Sanchez IG % 0.4 % Normal 0.0-0.5 [facility] Comment on above: Performed By: #### S EDR #### [facility] [address] [place] [address] Dr. Travis Sanchez LYMPH # 1.7 103/ul Normal 1.2-3.8 [facility] Comment on above: Performed By: #### S EDR #### [facility] [address] [place] [address] Dr. Travis Sanchez Lymphocytes/100 WBC (Bld) 20.7 % Normal 20.5-60.0 [facility] Comment on above: Performed By: #### S EDR #### [facility] [address] [place] [address] Dr. Travis Sanchez MANUAL DIFF REQ NO Normal [facility] Comment on above: Performed By: #### S EDR #### [facility] [address] [place] [address] Dr. Travis Sanchez MCH (RBC) [Entitic mass] 31.8 pg Normal 25.9-34.0 [facility] Comment on above: Performed By: #### S EDR #### [facility] [address] [address] [address] Travis Sanchez MCHC (RBC) [Mass/Vol] 33.8 g/dL Normal 29.9-35.2 [facility] Comment on above: Performed By: #### S EDR #### [facility] [address] [address] [address] Travis Sanchez MCV (RBC) [Entitic vol] 94.0 fL Normal 80.0-94.0 [facility] Comment on above: Performed By: #### S EDR #### [facility] [address] [place] [address] Dr. Travis Sanchez MONO # 0.5 103/ul Normal 0.3-0.8 [facility] Comment on above: Performed By: #### S EDR #### [facility] [address] [place] [address] Dr. Travis Sanchez Monocytes/100 WBC (Bld) 5.9 % Normal 1.7-12.0 [facility] Comment on above: Performed By: #### S EDR #### [facility] [address] [place] [address] Dr. Travis Sanchez NEUT # 5.9 103/ul Normal 1.4-6.5 [facility] Comment on above: Performed By: #### S EDR #### [facility] [address] [place] [address] Dr. Travis Sanchez Neutrophils/100 WBC (Bld) 72.4 % Normal 43.0-75.0 [facility] Comment on above: Performed By: #### S EDR #### [facility] [address] [place] [address] Dr. Travis Sanchez Platelet mean volume (Bld) [Entitic vol] 11.3 fL Normal 9.5-13.5 [facility] Comment on above: Performed By: #### S EDR #### [facility] [address] [place] [address] Dr. Travis Sanchez PLT 236 103/ul Normal 150-450 [facility] Comment on above: Performed By: #### S EDR #### [facility] [address] [address] [address] Travis Sanchez RBC 4.47 106/ul Critically low 4.70-6.10 [facility] Comment on above: Performed By: #### S EDR #### [facility] [address] [address] [address] Travis Sanchez WBC 8.1 103/ul Normal 4.0-11.0 [facility] Comment on above: Performed By: #### S EDR #### [facility] [address] [address] [address] Travis Sanchez CRPon 06-18-2022 CRP 2.9 mg/dL Critically high <=1.0 [facility] Comment on above: Performed By: #### S EDR #### [facility] [address] [address] [address] Travis Sanchez Covid-19 PCR ([facility])on 06-06 SARS-CoV-2 (COVID-19) RNA ECTOR+probe Ql (Unsp spec) Not detected Normal NOT DETECTED [facility] Comment on above: Result Comment: When [...] for this test is supported by the General Dentist of Health and Human Service's declaration that [...] used). Performed By: #### C BC #### [facility] [address] [address] [address] Travis Sanchez MRI LSFLYNN WO CONon 06-19-19 23 MRI [facility] WO CON HISTORY: Right-sided low back pain with radiculopathy for the past 2-3 weeks. The patient was found to have a large disc extrusion at the L4-L5 level on a recent CT scan. MRI [facility] WO CON: 06/18/2022 9:29 AM EDT [...] by: GERTRUDIS CHAUHAN Date: 2022-06-18 13:13 Normal [facility] POINT OF CARE GLUCOSEon 06-06 Glucose [Mass/Vol] 352 mg/dL Critically high -106 [facility] Comment on above: Performed By: #### P OCGLUC #### [facility] [address] [address] [address] Travis Sanchez Glucose [Mass/Vol] 183 mg/dL Critically high [facility]106 [facility] Comment on above: Performed By: #### S EDR #### [facility] [address] [address] [address] Travis Sanchez Glucose [Mass/Vol] 178 mg/dL Critically high [address] [place] [address] Comment on above: Performed By: #### P OCGLUC #### [facility] [address] [address] [address] Travis Sanchez Glucose [Mass/Vol] 252 mg/dL Critically high [facility]106 [facility] Comment on above: Performed By: #### P SASC #### [facility] [address] [address] [address] Travis Sanchez Glucose [Mass/Vol] 272 mg/dL Critically high [address] [place] [address] Comment on above: Performed By: #### S EDR #### [facility] [address] [address] [address] Travis Sanchez PROF CHEM 8 (BAS METB)on Anion gap [Moles/Vol] 15.3 mmol/L Normal [facility] Comment on above: Performed By: #### S EDR #### [facility] [address] [address] [address] Travis Sanchez Calcium [Mass/Vol] 8.6 mg/dL Normal 8.5-10.1 [facility] Comment on above: Performed By: #### S EDR #### [facility] [address] [address] [address] Travis Sanchez Chloride [Moles/Vol] 102 mmol/L Normal 98-107 [facility] Comment on above: Performed By: #### S EDR #### [facility] [address] [address] [address] Travis Sanchez CO2 [Moles/Vol] 25.1 mmol/L Normal 21.0-32.0 [facility] Comment on above: Performed By: #### S EDR #### [facility] [address] [place] [address] Dr. Travis Sanchez Creatinine [Mass/Vol] 0.84 mg/dL Normal 0.70-1.30 [facility] Comment on above: Performed By: #### S EDR #### [facility] [address] [address] [address] Travis Sanchez EGFR-AF MACANESE >60 Normal >=60 [facility] Comment on above: Performed By: #### S EDR #### [facility] [address] [address] [address] Travis Sanchez EGFR-NON AF MACANESE >60 Normal >=60 [facility] Comment on above: Performed By: #### S EDR #### [facility] [address] [address] [address] Travis Sanchez Glucose [Mass/Vol] 348 mg/dL Critically high 74-106 [facility] Comment on above: Performed By: #### S EDR #### [facility] [address] [address] [address] Travis Sanchez Potassium [Moles/Vol] 4.4 mmol/L Normal 3.5-5.1 [facility] Comment on above: Performed By: #### S EDR #### [facility] [address] [address] [address] Travis Sanchez Sodium [Moles/Vol] 138 mmol/L Normal 136-145 [facility] Comment on above: Performed By: #### S EDR #### [facility] [address] [address] [address] Travis Sanchez Urea nitrogen [Mass/Vol] 14.0 mg/dL Normal 7.0-18.0 [facility] Comment on above: Performed By: #### S EDR #### [facility] [address] [address] [address] Travis Sanchez Urea nitrogen/Creatinine [Mass ratio] 16.7 mg/mg Normal [facility] Comment on above: Performed By: #### S EDR #### [facility] [address] [address] [address] Travis Sanchez [facility] mm/hr Critically high <=15 [facility] Comment on above: Performed By: #### S EDR #### [facility] [address] [place] [address] LSPINE WO CONon [...] by: ELIUD HERNANDEZ Date: 2022-06-12 18:44 Normal [facility] Ambulatory Visit Summaryon 0 06-11-2022 Ambulatory Visit Summary Normal [facility] Patient Educationon 06-12-19 Patient Education Normal [facility] Urology Office/Clinic Noteon 06-11-2022 Urology Office/Clinic Note Normal [facility] Comment on above: Result Comment: Elec tronically Signed By: MARIANA BRIGGS PA-C\.br\Date and Time Signed: 06/11/22 09:07 EDT\.br\Electronically Co-Signed By: Alannah Ragland MA\.br\Date and Time Co-Signed: 06/11/22 09:01 EDT CBC AUTO DIFFon 05-24-2022 BASO # 0.1 103/ul Normal 0.0-0.1 [facility] Comment on above: Performed By: #### C BC #### [facility] [address] [place] [address] Dr. Travis Sanchez Basophils/100 WBC (Bld) 0.4 % Normal 0.2-2.0 [facility] Comment on above: Performed By: #### C BC #### [facility] [address] [place] [address] Dr. Travis Sanchez EO # 0.0 103/ul Normal 0.0-0.7 [facility] Comment on above: Performed By: #### C BC #### [facility] [address] [place] [address] Dr. Travis Sanchez Eosinophils/100 WBC (Bld) 0.3 % Critically low 0.9-7.0 [facility] Comment on above: Performed By: #### C BC #### [facility] [address] [place] [address] Dr. Travis Sanchez Erythrocyte distribution width (RBC) [Ratio] 14.3 % Normal 11.0-15.0 [facility] Comment on above: Performed By: #### C BC #### [facility] [address] [place] [address] Dr. Travis Sanchez Hematocrit (Bld) [Volume fraction] 41.2 % Critically low 42.0-54.0 [facility] Comment on above: Performed By: #### C BC #### [facility] [address] [place] [address] Dr. Travis Sanchez Hemoglobin (Bld) [Mass/Vol] 13.9 g/dL Critically low 14.0-18.0 [facility] Comment on above: Performed By: #### C BC #### [facility] [address] [place] [address] Dr. Travis Sanchez IG # 0.05 10e3/ul Critically high 0.00-0.03 [facility] Comment on above: Performed By: #### C BC #### [facility] [address] [place] [address] Dr. Travis Sanchez IG % 0.4 % Normal 0.0-0.5 [facility] Comment on above: Performed By: #### C BC #### [facility] [address] [place] [address] Dr. Travis Sanchez LYMPH # 1.2 103/ul Normal 1.2-3.8 [facility] Comment on above: Performed By: #### C BC #### [facility] [address] [place] [address] Dr. Travis Sanchez Lymphocytes/100 WBC (Bld) 8.9 % Critically low 20.5-60.0 [facility] Comment on above: Performed By: #### C BC #### [facility] [address] [place] [address] Dr. Travis Sanchez MANUAL DIFF REQ NO Normal [facility] Comment on above: Performed By: #### C BC #### [facility] [address] [place] [address] Dr. Travis Sanchez MCH (RBC) [Entitic mass] 31.5 pg Normal 25.9-34.0 [facility] Comment on above: Performed By: #### C BC #### [facility] [address] [place] [address] Dr. Travis Sanchez MCHC (RBC) [Mass/Vol] 33.7 g/dL Normal 29.9-35.2 [facility] Comment on above: Performed By: #### C BC #### [facility] [address] [place] [address] Dr. Travis Sanchez MCV (RBC) [Entitic vol] 93.4 fL Normal 80.0-94.0 [facility] Comment on above: Performed By: #### C BC #### [facility] [address] [place] [address] Dr. Travis Sanchez MONO # 1.0 103/ul Critically high 0.3-0.8 [facility] Comment on above: Performed By: #### C BC #### [facility] [address] [place] [address] Dr. Travis Sanchez Monocytes/100 WBC (Bld) 7.3 % Normal 1.7-12.0 [facility] Comment on above: Performed By: #### C BC #### [facility] [address] [place] [address] Dr. Travis Sanchez NEUT # 11.4 103/ul Critically high 1.4-6.5 [facility] Comment on above: Performed By: #### C BC #### [facility] [address] [place] [address] Dr. Travis Sanchez Neutrophils/100 WBC (Bld) 82.7 % Critically high 43.0-75.0 [facility] Comment on above: Performed By: #### C BC #### [facility] [address] [place] [address] Dr. Travis Sanchez Platelet mean volume (Bld) [Entitic vol] 11.0 fL Normal 9.5-13.5 [facility] Comment on above: Performed By: #### C BC #### [facility] [address] [place] [address] Dr. Travis Sanchez PLT 262 103/ul Normal 150-450 [facility] Comment on above: Performed By: #### C BC #### [facility] [address] [place], [place] [id number] Dr. Travis Sanchez RBC 4.41 106/ul Critically low 4.70-6.10 [facility] Comment on above: Performed By: #### C BC #### [facility] [address] [place] [address] Dr. Travis Sanchez WBC 13.8 103/ul Critically high 4.0-11.0 The [facility] Comment on above: Performed By: #### C BC #### [facility] [address], [place] [address] Dr. Travis Sanchez CRPon 05-24-2022 CRP 16.3 mg/dL Critically high <=1.0 [facility] Comment on above: Performed By: #### P SASC #### [facility] [address], [place] [address] FACIAL BONES WO [...] by: SEGUN GALLEGOS Date: 2022-05-24 00:14 Normal [facility] LACTATE/LACTIC ACIDon 2022 Lactate [Moles/Vol] 1.3 mmol/L Normal 0.4-2.0 [facility] Comment on above: Performed By: #### C BC #### [facility] [address] [place] [address] Dr. Travis Sanchez POINT OF CARE GLUCOSEon 05-06 Glucose [Mass/Vol] 208 mg/dL Critically high 74-106 [facility] Comment on above: Performed By: #### P SASC #### [facility] [address] [place] [address] Dr. Travis Sanchez PROF CHEM 8 (BAS METB)on Anion gap [Moles/Vol] 13.9 mmol/L Normal [facility] Comment on above: Performed By: #### P SASC #### [facility] [address] [place] [address] Dr. Travis Sanchez Calcium [Mass/Vol] 8.8 mg/dL Normal 8.5-10.1 [facility] Comment on above: Performed By: #### P SASC #### [facility] [address] [place] [address] Dr. Travis Sanchez Chloride [Moles/Vol] 98 mmol/L Normal 98-107 [facility] Comment on above: Performed By: #### P SASC #### [facility] [address] [address] [address] Travis Sanchez CO2 [Moles/Vol] 25.9 mmol/L Normal 21.0-32.0 [facility] Comment on above: Performed By: #### P SASC #### [facility] [address] [place] [address] Dr. Travis Sanchez Creatinine [Mass/Vol] 0.74 mg/dL Normal 0.70-1.30 [facility] Comment on above: Performed By: #### P SASC #### [facility] [address] [place] [address] Dr. Travis Sanchez EGFR-AF MACANESE >60 Normal >=60 [facility] Comment on above: Performed By: #### P SASC #### [facility] [address] [place] [address] Dr. Travis Sanchez EGFR-NON AF MACANESE >60 Normal >=60 [facility] Comment on above: Performed By: #### P SASC #### [facility] [address] [address] [address] Travis Sanchez Glucose [Mass/Vol] 203 mg/dL Critically high 74-[address] [facility] Comment on above: Performed By: #### P SASC #### [facility] [address] [place] [address] Dr. Travis Sanchez Potassium [Moles/Vol] 3.8 mmol/L Normal 3.5-5.1 [facility] Comment on above: Performed By: #### P SASC #### [facility] [address] [address] [address] Travis Sanchez Sodium [Moles/Vol] 134 mmol/L Critically low 136-145 [facility] Comment on above: Performed By: #### P SASC #### [facility] [address] [place] [address] Dr. Travis Sanchez Urea nitrogen [Mass/Vol] 9.0 mg/dL Normal 7.0-18.0 [facility] Comment on above: Performed By: #### P SASC #### [facility] [address] [place] [address] Dr. Travis Sanchez Urea nitrogen/Creatinine [Mass ratio] 12.2 mg/mg Normal [facility] Comment on above: Performed By: #### P [facility] #### [facility] [address], [place] [address] Dr. Travis Sanchez SED RATE WESTERGRENon 2022 SED RATE 61 mm/hr Critically high <=15 [facility] Comment on above: Performed By: #### S EDR #### [facility] [address], [place] [address] Dr. Travis Sanchez Glucose Glucometer (BldC) [M [...] [facility] Comment on above: Result Comment: [place] om Glucose Reference Range is dependent on time and content of last meal. Glucose of more than 200 mg/dL in a nonstressed, ambulatory subject supports the diagnosis of Diabetes Mellitus. PERFORMED BY: [facility] [address] [facility] [address] PATHOLOGIST MAINTENANCE AND REPAIR WORKER JOSSELYN ROSEN M.D. Performed By: #### G LULS #### Point of Care testing , Glucose Poct Glucometerson 0 04-03-2022 Glucose [Mass/Vol] 143 mg/dL Normal [facility] Comment on above: Result Comment: [place] om Glucose Reference Range is dependent on time and content of last meal. Glucose of more than 200 mg/dL in a nonstressed, ambulatory subject supports the diagnosis of Diabetes Mellitus. PERFORMED BY: [facility] [address] [place] [address] PATHOLOGIST MAINTENANCE AND REPAIR WORKER JOSSELYN ROSEN M.D. Performed By: #### G LULS #### Point of Care testing , Cholesterol [Mass/volume] in Serum or PlasmaOrdered By: Dell Kim on 04-02-2022 Cholesterol [Mass/Vol] 244 mg/dL 140-200 [facility] Comment on above: Chol less than 200 m g/dl low riskChol 201-239 mg/dl borderline riskChol 240 mg/dl and greater high risk Cholesterol in LDL Calc [Mas s/Vol]Ordered By: Dell Kim on 04-02-2022 Cholesterol in LDL [Mass/Vol] [facility] Comment on above: Test not performed Cholesterol in VLDL Calc [Ma ss/Vol]Ordered By: Dell Kim on 04-02-2022 Cholesterol in VLDL [Mass/Vol] [facility] Comment on above: Test not performed Glucose Poct Glucometerson 0 04-02-2022 Commemt1 Glu2: Cleaned Meter Normal [facility] Comment on above: Result Comment: PERF ORMED BY: [place] [address] PATHOLOGIST MAINTENANCE AND REPAIR WORKER JOSSELYN ROSEN M.D. Performed By: #### G LULS ####Point of Care testing, Glucose [Mass/Vol] 239 mg/dL Normal [facility] Comment on above: Result Comment: [facility] Glucose Reference Range is dependent on time and content of last meal. Glucose of more than 200 mg/dL in a nonstressed, ambulatory subject supports the diagnosis of Diabetes Mellitus. Performed By: #### G LULS ####Point of Care testing, LDL Cholesterol Measuredon 0 04-02-2022 LDL Cholesterol Measured 122 mg/dL High 0-100 [facility] Comment on above: Result Comment: LDL ATP III CLASSIFICATION LDL less than 100 mg/dL Optimal LDL 100-129 mg/dL Near or above optimal LDL 130-159 mg/dL Borderline high LDL 160-189 mg/dL High LDL greater than 189 mg/dL Very high Performed By: #### L IPID, [id number], TSH3 wRFLX, LDLD #### [address] Lipid Panelon 04-02-2022 Cholesterol [Mass/Vol] 244 mg/dL High 140-200 [facility] Comment on above: Result Comment: Chol less than 200 mg/dl low risk Chol 201-239 mg/dl borderline risk Chol 240 mg/dl and greater high risk Performed By: #### L IPID, [id number], TSH3 wRFLX, LDLD #### [facility] [address] [id number] [place] Cholesterol in HDL [Mass/Vol] 29 mg/dL Normal 29-71 [facility] Comment on above: Result Comment: HDL CHOL ATP-III CLASSIFICATION Cardiovascular Risk HDL > or equal to 60 mg/dL LOW HDL < 40 mg/dL HIGH Performed By: #### L IPID, [id number], TSH3 wRFLX, LDLD #### [facility] [address] Cholesterol.total/Linette sterol in HDL [Mass ratio] 8.4 {ratio} Normal <5.0 [facility] Comment on above: Performed By: #### L IPID, [id number], TSH3 wRFLX, LDLD #### [facility] [address] [id number] [facility] LDL Cholesterol,Calculated Not performed Normal 0-100 [facility] Comment on above: Performed By: #### L IPID, [id number], TSH3 wRFLX, LDLD #### [facility] [address] [id number] [place] Triglyceride w/Reflex 622 mg/dL High 35-149 [facility] Comment on above: Result Comment: TRIG ATP [...] and resulted. Performed By: #### L IPID, [id number], TSH3 wRFLX, LDLD #### [facility] [address] [id number] [place] VLDL CHOLESTEROL Not performed Normal [facility] Comment on above: Performed By: #### L IPID, [id number], TSH3 wRFLX, LDLD #### [facility] [address] No Panel InformationOrdered By: Dell Kim on 04-02-2022 Bedside Glucose Comment Glu2: cleaned meter [facility] 25-Hydroxy Vitamin D Total < 7.0 ng/mL 30-100 [facility] Comment on above: VITAMIN D STATUS 25( [place])VITAMIN D RANGE (ng/mL) Deficient <20 Insufficient 20 to <30Sufficient 30 to 100Reference: Rosy MF,Byron MENDOZA, Rajinder GALDAMEZ, et al. Evaluation,treatment, and prevention of vitamin D deficiency; an Endocrine Society clinical practice guideline. JCEM. 2010; 96(7):1911-30. Serum or plasma cholesterol in LDL measurement (mass/volume)Ordered By: Dell Kim on 04-02-2022 Cholesterol in LDL [Mass/Vol] 122 mg/dL 0-100 [facility] Comment on above: LDL ATP III CLASSIFI CATIONLDL less than 100 mg/dL OptimalLDL 100-129 mg/dL Near or above optimalLDL 130-159 mg/dL Borderline highLDL 160-189 mg/dL HighLDL greater than 189 mg/dL Very high Serum or plasma high density lipoprotein (HDL) cholesterol measurementOrdered By: Dell Kim on 04-02-2022 Cholesterol in HDL [Mass/Vol] 29 mg/dL 29-71 [facility] Comment on above: HDL CHOL ATP-III CLA SSIFICATION Cardiovascular RiskHDL > or equal to 60 mg/dL LOWHDL < 40 mg/dL HIGH Serum or plasma total choles terol/high density lipoprotein (HDL) cholesterol mass ratOrdered By: Dell Kim on 04-02-2022 Cholesterol.total/Linette sterol in HDL [Mass ratio] 8.4 {ratio} <5.0 [facility] TSH DL <= 0.005 mIU/L QnOrde red By: Dell Kim on 04-02-2022 TSH Qn 1.06 m[IU]/L 0.45-5.33 [facility] Thyroid Stim Hormone w/Rflxo n 04-02-2022 Thyroid Stim Hormone w/Rflx 1.06 u[iU]/mL Normal 0.45-5.33 [facility] Comment on above: Performed By: #### L IPID, [id number], TSH3 wRFLX, LDLD #### [facility] [address] [id number] [facility] Triglyceride [Mass/volume] i n Serum or PlasmaOrdered By: Dell Kim on 04-02-2022 Triglyceride [Mass/Vol] 622 mg/dL 35-149 [facility] Comment on above: If the triglyceride [...] 25 Hydroxy Total < 7.0 Low 30-100 [facility] Comment on above: Result Comment: SANDRA MIN D STATUS 25([place])VITAMIN D RANGE (ng/mL) Deficient <20 Insufficient 20 to <30 Sufficient 30 to 100 Reference: Rosy MF,Byron NC, Hilario-Alex GALDAMEZ, et al. Evaluation,treatment, and prevention of vitamin D deficiency; an Endocrine Society clinical practice guideline. JCEM. 2010; 96(7):1911-30. PERFORMED BY: [place] [address] PATHOLOGIST MAINTENANCE AND REPAIR WORKER JOSSELYN ROSEN M.D. Performed By: #### L IPID, [id number], TSH3 wRFLX, LDLD #### [facility] [address] [id number] [facility] ACETAMINOPHENon 04-01-2022 Acetaminophen [Mass/Vol] ug/mL Critically low 10.0-30.0 [facility] Comment on above: Performed By: #### C VDTBH #### [facility] [address] [address] [address] Travis Sanchez CBC AUTO DIFFon 04-01-2022 BASO # 0.1 103/ul Normal 0.0-0.1 [facility] Comment on above: Performed By: #### C BC #### [facility] [address] [address] [address] Travis Sanchez Basophils/100 WBC (Bld) 0.8 % Normal 0.2-2.0 [facility] Comment on above: Performed By: #### C BC #### [facility] [address] [address] [address] Travis Sanchez EO # 0.1 103/ul Normal 0.0-0.7 [facility] Comment on above: Performed By: #### C BC #### [facility] [address] [place] [address] Dr. Travis Sanchez Eosinophils/100 WBC (Bld) 1.3 % Normal 0.9-7.0 [facility] Comment on above: Performed By: #### C BC #### [facility] [address] [place] [address] Dr. Travis Sanchez Erythrocyte distribution width (RBC) [Ratio] 14.1 % Normal 11.0-15.0 [facility] Comment on above: Performed By: #### C BC #### [facility] [address] [place] [address] Dr. Travis Sanchez Hematocrit (Bld) [Volume fraction] 47.9 % Normal 42.0-54.0 [facility] Comment on above: Performed By: #### C BC #### [facility] [address] [place] [address] Dr. Travis Sanchez Hemoglobin (Bld) [Mass/Vol] 15.4 g/dL Normal 14.0-18.0 [facility] Comment on above: Performed By: #### C BC #### [facility] [address] [place] [address] Dr. Travis Sanchez IG # 0.03 10e3/ul Normal 0.00-0.03 [facility] Comment on above: Performed By: #### C BC #### [facility] [address] [place] [address] Dr. Travis Sanchez IG % 0.4 % Normal 0.0-0.5 [facility] Comment on above: Performed By: #### C BC #### [facility] [address] [place] [address] Dr. Travis Sanchez LYMPH # 1.7 103/ul Normal 1.2-3.8 [facility] Comment on above: Performed By: #### C BC #### [facility] [address] [place] [address] Dr. Travis Sanchez Lymphocytes/100 WBC (Bld) 22.1 % Normal 20.5-60.0 [facility] Comment on above: Performed By: #### C BC #### [facility] [address] [place] [address] Dr. Travis Sanchez MANUAL DIFF REQ NO Normal [facility] Comment on above: Performed By: #### C BC #### [facility] [address] [place] [address] Dr. Travis Sanchez MCH (RBC) [Entitic mass] 31.5 pg Normal 25.9-34.0 [facility] Comment on above: Performed By: #### C BC #### [facility] [address] [place] [address] Dr. Travis Sanchez MCHC (RBC) [Mass/Vol] 32.2 g/dL Normal 29.9-35.2 [facility] Comment on above: Performed By: #### C BC #### [facility] [address] [place] [address] Dr. Travis Sanchez MCV (RBC) [Entitic vol] 98.0 fL Critically high 80.0-94 .0 [facility] Comment on above: Performed By: #### C BC #### [facility] [address] [place] [address] Dr. Travis Sanchez MONO # 0.5 103/ul Normal 0.3-0.8 [facility] Comment on above: Performed By: #### C BC #### [facility] [address] [place] [address] Dr. Travis Sanchez Monocytes/100 WBC (Bld) 6.2 % Normal 1.7-12.0 [facility] Comment on above: Performed By: #### C BC #### [facility] [address] [place] [address] Dr. Travis Sanchez NEUT # 5.3 103/ul Normal 1.4-6.5 [facility] Comment on above: Performed By: #### C BC #### [facility] [address] [place] [address] Dr. Travis Sanchez Neutrophils/100 WBC (Bld) 69.2 % Normal 43.0-75.0 [facility] Comment on above: Performed By: #### C BC #### [facility] [address] [place] [address] Dr. Travis Sanchez Platelet mean volume (Bld) [Entitic vol] 11.0 fL Normal 9.5-13.5 [facility] Comment on above: Performed By: #### C BC #### [facility] [address] [place] [address] Dr. Travis Sanchez PLT 314 103/ul Normal 150-450 [facility] Comment on above: Performed By: #### C BC #### [facility] [address] [place] [address] Dr. Travis Sanchez RBC 4.89 106/ul Normal 4.70-6.10 [facility] Comment on above: Performed By: #### C BC #### [facility] [address] [place] [address] Dr. Travis Sanchez WBC 7.6 103/ul Normal 4.0-11.0 [facility] Comment on above: Performed By: #### C BC #### [facility] [address] [place] [address] Dr. Travis Sanchez CULTURE URINEon 04-01-2022 CULTURE URINE Culture Observations : NO GROWTH. Normal [facility] Comment on above: Performed By: #### C VDTBH #### [facility] [address] [place] [address] Dr. Travis Sanchez Covid-19 PCR (CVDTB)on 03-09 SARS-CoV-2 (COVID-19) RNA ECTOR+probe Ql (Unsp spec) Not detected Normal NOT DETECTED [facility] Comment on above: Result Comment: When [...] for this test is supported by the [place] of [employer] and Human Service's declaration that [...] used). Performed By: #### C VDTB #### [facility] [address] [place] [address] Dr. Travis Sanchez DRUG SCREEN RAPID (URINE)on 04-01-2022 AMP Negative Normal NEGATIVE [facility] Comment on above: Performed By: #### C BC #### [facility] [address] [place] [address] Dr. Travis Sanchez BAR Negative Normal NEGATIVE [facility] Comment on above: Performed By: #### C BC #### [facility] [address] [place] [address] Dr. Travis Sanchez BUP Negative Normal NEGATIVE [facility] Comment on above: Performed By: #### C BC #### [facility] [address] [place] [address] Dr. Travis Sanchez BZO Negative Normal NEGATIVE [facility] Comment on above: Performed By: #### C BC #### [facility] [address] [place] [address] Dr. Travis Sanchez JESUS Negative Normal NEGATIVE [facility] Comment on above: Performed By: #### C BC #### [facility] [address] [place] [address] Dr. Travis Sanchez CUT-OFFS SEE BELOW Normal [facility] Comment on above: Result Comment: AMP (Amphetamine): 500ng/mL, BAR (Barbituates): 200 ng/mL, BZO (Benzodiazepines): 150 ng/mL, BUP (Buprenorphine): 10 ng/mL, JESUS (Cocaine): 150 ng/mL, mAMP (Methamphetamine): 500 ng/mL, MTD (Methadone): 200 ng/mL, OPI (Opiates): 100 ng/mL, OXY (Oxycodone): 100 ng/mL, PCP (Phencyclidine): 25 ng/mL, PPX (Propoxyphene): 300 ng/mL, THC (Cannabinoids): 50 ng/mL, TCA (Trycyclic Antidepressants): 300 ng/mL Performed By: #### C BC #### [facility] [address] [place] [address] Dr. Travis Sanchez DRUG CUT HEADER DRUG CLASS TEST SYSTEM CUT-OFF CONCENTRATIONS ARE FOLLOWS: Normal [facility] Comment on above: Performed By: #### C BC #### [facility] [address] [place] [address] Dr. Travis Sanchez mAMP Negative Normal NEGATIVE [facility] Comment on above: Performed By: #### C BC #### [facility] [address] [place] [address] Dr. Travis Sanchez MTD Negative Normal NEGATIVE [facility] Comment on above: Performed By: #### C BC #### [facility] [address] [place] [address] Dr. Travis Sanchez OPI Negative Normal NEGATIVE [facility] Comment on above: Performed By: #### C BC #### [facility] [address] [place] [address] Dr. Travis Sanchez OXY Negative Normal NEGATIVE [facility] Comment on above: Performed By: #### C BC #### [facility] [address] [place] [address] Dr. Travis Sanchez PCP Negative Normal NEGATIVE [facility] Comment on above: Performed By: #### C BC #### [facility] [address] [place] [address] Dr. Travis Sanchez PPX Negative Normal NEGATIVE [facility] Comment on above: Performed By: #### C BC #### [facility] [address] [place] [address] Dr. Travis Sanchez TCA Negative Normal NEGATIVE [facility] Comment on above: Performed By: #### C BC #### [facility] [address] [place] [address] Dr. Travis Sanchez THC Negative Normal NEGATIVE [facility] Comment on above: Performed By: #### C BC #### [facility] [address] [place] [address] Dr. Travis Sanchez ER URINE PROFILEon 3 Bilirubin Ql (U) Negative Normal NEGATIVE [facility] Comment on above: Performed By: #### C BC #### [facility] [address] [place] [address] Dr. Travis Sanchez Clarity (U) CLEAR Normal CLEAR [facility] Comment on above: Performed By: #### C BC #### [facility] [address] [place] [address] Dr. Travis Sanchez Color (U) YELLOW Normal YELLOW [facility] Comment on above: Performed By: #### C BC #### [facility] [address] [place] [address] Dr. Travis Sanchez ERUAHD A micrscopic examination will be performed if indicated. Normal [facility] Comment on above: Performed By: #### C BC #### [facility] [address] [place] [address] Dr. Travis Sanchez Glucose Ql (U) >1000 Abnormal NEGATIVE [facility] Comment on above: Performed By: #### C BC #### [facility] [address] [place] [address] Dr. Travis Sanchez Hemoglobin Ql (U) Negative Normal NEGATIVE [facility] Comment on above: Performed By: #### C BC #### [facility] [address] [place] [address] Dr. Trvais Sanchez Ketones Ql (U) TRACE Abnormal NEGATIVE [facility] Comment on above: Performed By: #### C BC #### [facility] [address] [place] [address] Dr. Travis Sanchez LEUKOCYTES Negative Normal NEGATIVE [facility] Comment on above: Performed By: #### C BC #### [facility] [address] [place] [address] Dr. Travis Sanchez Nitrite Ql (U) Negative Normal NEGATIVE [facility] Comment on above: Performed By: #### C BC #### [facility] [address] [place] [address] Dr. Travis Sanchez pH (U) 5.5 [pH] Normal 5-9 [facility] Comment on above: Performed By: #### C BC #### [facility] [address] [place] [address] Dr. Travis Sanchez Protein (U) [Mass/Vol] 100 mg/dL Abnormal NEGAT WILIAN/ TRACE [facility] Comment on above: Performed By: #### C BC #### [facility] [address] [place] [address] Dr. Travis Sanchez SPEC GRAVITY >=1.030 Abnormal 1.005-<=1.0 25 [facility] Comment on above: Performed By: #### C BC #### [facility] [address] [place] [address] Dr. Travis Sanchez UR MICRO IND INDICATED Normal [facility] Comment on above: Performed By: #### C BC #### [facility] [address] [place] [address] Dr. Travis Sanchez Urobilinogen Qn (U) 0.2 {Chintan'U}/dL Normal 0.2 - 1. 0 [facility] Comment on above: Performed By: #### C BC #### [facility] [address] [place] [address] Dr. Travis Sanchez ETHANOL (BLD ALC)on 04-01-19 23 ALC NOTE NOTE: 80 mg/dl is th e legal limit for a blood alcohol level Normal [facility] Comment on above: Performed By: #### E TH #### [facility] [address] [place] [address] Dr. Travis Sanchez Ethanol [Mass/Vol] mg/dL Normal [facility] Comment on above: Performed By: #### E TH #### [facility] [address] [place] [address] Dr. Travis Sanchez PROF 14(COMP METB)on 023 Albumin [Mass/Vol] 3.5 g/dL Normal 3.4-5.0 [facility] Comment on above: Performed By: #### C VDTBH #### [facility] [address] [place] [address] Dr. Travis Sanchez Albumin/Globulin [Mass ratio] 0.9 {ratio} Normal [facility] Comment on above: Performed By: #### C VDTBH #### [facility] [address] [place] [address] Dr. Travis Sanchez ALP [Catalytic activity/Vol] 98 U/L Normal 46-116 [facility] Comment on above: Performed By: #### C VDTBH #### [facility] [address] [place] [address] Dr. Travis Sanchez ALT [Catalytic activity/Vol] 36 U/L Normal 16-63 [facility] Comment on above: Performed By: #### C VDTBH #### [facility] [address] [place] [address] Dr. Travis Sanchez Anion gap [Moles/Vol] 16.8 mmol/L Normal [facility] Comment on above: Performed By: #### C VDTBH #### [facility] [address] [place] [address] Dr. Travis Sanchez AST [Catalytic activity/Vol] 18 U/L Normal 15-37 [facility] Comment on above: Performed By: #### C VDTBH #### [facility] [address] [place] [address] Dr. Travis Sanchez Bilirubin [Mass/Vol] 0.3 mg/dL Normal 0.2-1.0 [facility] Comment on above: Performed By: #### C VDTBH #### [facility] [address] [place] [address] Dr. Travis Sanchez Calcium [Mass/Vol] 9.1 mg/dL Normal 8.5-10.1 [facility] Comment on above: Performed By: #### C VDTBH #### [facility] [address] [address] [address] Travis Sanchez Chloride [Moles/Vol] 101 mmol/L Normal 98-107 [facility] Comment on above: Performed By: #### C VDTBH #### [facility] [address] [address] [address] Travis Sanchez CO2 [Moles/Vol] 22.1 mmol/L Normal 21.0-32.0 [facility] Comment on above: Performed By: #### C VDTBH #### [facility] [address] [address] [address] Travis Sanchez Creatinine [Mass/Vol] 0.81 mg/dL Normal 0.70-1.30 [facility] Comment on above: Performed By: #### C VDTBH #### [facility] [address] [place] [address] Dr. Travis Sanchez EGFR-AF MACANESE >60 Normal >=60 [facility] Comment on above: Performed By: #### C VDTBH #### [facility] [address] [place] [address] Dr. Travis Sanchez EGFR-NON AF MACANESE >60 Normal >=60 [facility] Comment on above: Performed By: #### C VDTBH #### [facility] [address] [place] [address] Dr. Travis Sanchez Globulin (S) [Mass/Vol] 3.7 g/dL Normal [facility] Comment on above: Performed By: #### C VDTBH #### [facility] [address] [place] [address] Dr. Travis Sanchez Glucose [Mass/Vol] 277 mg/dL Critically high 74-106 [facility] Comment on above: Performed By: #### C VDTBH #### [facility] [address] [place] [address] Dr. Travis Sanchez Potassium [Moles/Vol] 3.9 mmol/L Normal 3.5-5.1 [facility] Comment on above: Performed By: #### C VDTBH #### [facility] [address] [place] [address] Dr. Travis Sanchez Protein [Mass/Vol] 7.2 g/dL Normal 6.4-8.2 [facility] Comment on above: Performed By: #### C VDTBH #### [facility] [address] [place] [address] Dr. Travis Sanchez Sodium [Moles/Vol] 136 mmol/L Normal 136-145 [facility] Comment on above: Performed By: #### C VDTBH #### [facility] [address] [place] [address] Dr. Travis Sacnhez Urea nitrogen [Mass/Vol] 11.0 mg/dL Normal 7.0-18.0 [facility] Comment on above: Performed By: #### C VDTBH #### [facility] [address] [place] [address] Dr. Travis Sanchez Urea nitrogen/Creatinine [Mass ratio] 13.6 mg/mg Normal [facility] Comment on above: Performed By: #### C VDTBH #### [facility] [address] [place] [address] Dr. Travis Sanchez SALICYLATEon 04-01-2022 SALICYLATE <2.8 Normal <=19.9 [facility] Comment on above: Performed By: #### C VDTBH #### [facility] [address] [place] [address] Dr. Travis Sanchez URINE MICROSCOPIC ONLYon BACTERIA SMALL Abnormal NONE SEEN [facility] Comment on above: Performed By: #### C BC #### [facility] [address] [place] [address] Dr. Travis Sanchez Bacteria identified Cx Nom (U) INDICATED Normal [facility] Comment on above: Performed By: #### C BC #### [facility] [address] [place] [address] Dr. Travis Sanchez CAST SEEN Abnormal NONE SEEN [facility] Comment on above: Performed By: #### C BC #### [facility] [address] [place] [address] Dr. Travis Sanchez Crystals LM Nom (Urine sed) NONE SEEN Normal NONE SEEN [facility] Comment on above: Performed By: #### C BC #### [facility] [address] [place] [address] Dr. Travis Sanchez Epithelial cells LM Ql (Urine sed) MODERATE Abnormal NONE SEEN /RARE [facility] Comment on above: Performed By: #### C BC #### [facility] [address] [place] [address] Dr. Travis Sanchez HYALINE CAST RARE Normal [facility] Comment on above: Performed By: #### C BC #### [facility] [address] [place] [address] Dr. Travis Sanchez MUCOUS MODERATE Abnormal NONE SEEN [facility] Comment on above: Performed By: #### C BC #### [facility] [address] [place] [address] Dr. Travis Sanchez RBC 0-2 Normal 0-2 [facility] Comment on above: Performed By: #### C BC #### [facility] [address] [place] [address] Dr. Travis Sanchez WBC 2-5 Abnormal NONE SEEN [facility] Comment on above: Performed By: #### C BC #### [facility] [address] [place] [address] Dr. Travis Sanchez TESTOSTERONE, TOTALon 2022 Testosterone [Mass/Vol] 240 ng/dL Critically low 264-916 [facility] Comment on above: Result Comment: Adul t male reference interval is based on a population of healthy nonobese males (BMI <30) between 19 and 39 years old. mike Prado.al. JCEM 2017,102;8498-1944. PMID: [id number]. Performed By: #### C BC #### [facility] [address] [place] [address] Dr. Travis Sanchez GLYCOHEMOGLOBIN A1Con 2022 ADA RECOMMENDATION SEE BELOW Normal [facility] Comment on above: Result Comment: ADA RECOMMENDED LIMIT 4.0 - 6.0 ADA THERAPEUTIC TARGET < 7.0 ACTION SUGGESTED > 7.0 Performed By: #### C BC #### [facility] [address], [place] [address] Dr. Travis Sanchez Glucose [Mass/Vol] 212 mg/dL Normal [facility] Comment on above: Performed By: #### C BC #### [facility] [address], [place] [address] Dr. Travis Sanchez HbA1c (Bld) [Mass fraction] 9.0 % Critically high 4.5-6.2 [facility] Comment on above: Performed By: #### C BC #### [facility] [address], [place] [address] Dr. Travis Sanchez [facility] [place] [facility] Coding Summary.on 02-19-2022 Coding Summary. Normal [facility] CHEMISTRYOrdered By: SYSTEM SYSTEM on 02-16-2022 Anion gap [Moles/Vol] 16 mmol/L Normal 6 - 16 mEq/L [facility] [place] Remisol Chloride [Moles/Vol] 97 mmol/L Low 101 - 1 11 mmol/L [facility] [place] Remisol CO2 [Moles/Vol] 24 mmol/L Normal 21 - 31 mmol/L [facility] [place] Remisol Potassium [Moles/Vol] 4.2 mmol/L Normal 3.5 - 5.3 mmol/L [facility] [place] Remisol Sodium [Moles/Vol] 133 mmol/L Low 135 - 145 mmol/L [facility] [place] Remisol Lyteson 02-16-2022 Anion gap [Moles/Vol] 16 mmol/L Normal 6-16 [facility] Comment on above: Performed By: #### 2 [id number] ####[facility] [address] [place] [address] Chloride [Moles/Vol] 97 mmol/L Low 101-111 [facility] Comment on above: Performed By: #### 2 [id number] ####[facility] [address] [place] [address] CO2 [Moles/Vol] 24 mmol/L Normal 21-31 [facility] Comment on above: Performed By: #### 2 [id number] ####[facility] [address] [place] [address] Potassium [Moles/Vol] 4.2 mmol/L Normal 3.5-5.3 [facility] Comment on above: Performed By: #### 2 [id number] ####[facility] [address] [place] [address] Sodium [Moles/Vol] 133 mmol/L Low 135-145 [facility] Comment on above: Performed By: #### 2 [id number] ####[facility] [address] [place] [address] Patient Educationon 02-17-20 Patient Education Normal [facility] Urology Office/Clinic Noteon 02-16-2022 Urology Office/Clinic Note Normal [facility] Comment on above: Result Comment: Elec tronically Signed By: Patricio CHAKRABORTY MD\.br\Date and Time Signed: 02/16/22 15:06 EST\.br\Electronically Co-Signed By: Germaine Mccain\.br\Date and Time Co-Signed: 02/16/22 15:05 EST Ambulatory Visit Summaryon 1 Ambulatory Visit Summary Normal [facility] Patient Educationon 12-16-19 Patient Education Normal [facility] Reminderson 12-15-2021 Reminders Normal [facility] Comment on above: Other Comment: in er ror Urology Office/Clinic Noteon 12-15-2021 Urology Office/Clinic Note Normal [facility] Comment on above: Result Comment: Elec tronically Signed By: Patricio CHAKRABORTY MD R\.br\Date and Time Signed: 12/15/21 15:50 EDT\.br\Electronically Co-Signed By: Alannah Ragland MA\.br\Date and Time Co-Signed: 12/15/21 15:45 EDT INSULINon 11-14-2021 Insulin 27.9 uIU/mL Critically high 2.6-24.9 [facility] Comment on above: Performed By: #### S EDR #### [facility] [address] [address] [address] Travis Sanchez CBC AUTO DIFFon 11-13-2021 BASO # 0.0 103/ul Normal 0.0-0.1 [facility] Comment on above: Performed By: #### C BC #### [facility] [address] [address] [address] Travis Sanchez Basophils/100 WBC (Bld) 0.5 % Normal 0.2-2.0 [facility] Comment on above: Performed By: #### C BC #### [facility] [address] [place] [address] Dr. Travis Sanchez EO # 0.1 103/ul Normal 0.0-0.7 [facility] Comment on above: Performed By: #### C BC #### [facility] [address] [place] [address] Dr. Travis Sanchez Eosinophils/100 WBC (Bld) 1.8 % Normal 0.9-7.0 [facility] Comment on above: Performed By: #### C BC #### [facility] [address] [place] [address] Dr. Travis Sanchez Erythrocyte distribution width (RBC) [Ratio] 13.7 % Normal 11.0-15.0 [facility] Comment on above: Performed By: #### C BC #### [facility] [address] [place] [address] Dr. Travis Sanchez Hematocrit (Bld) [Volume fraction] 40.9 % Critically low 42.0-54.0 [facility] Comment on above: Performed By: #### C BC #### [facility] [address] [place] [address] Dr. Travis Sanchez Hemoglobin (Bld) [Mass/Vol] 13.7 g/dL Critically low 14.0-18.0 [facility] Comment on above: Performed By: #### C BC #### [facility] [address] [place] [address] Dr. Travis Sanchez IG # 0.04 10e3/ul Critically high 0.00-0.03 [facility] Comment on above: Performed By: #### C BC #### [facility] [address] [place] [address] Dr. Travis Sanchez IG % 0.7 % Critically high 0.0-0.5 [facility] Comment on above: Performed By: #### C BC #### [facility] [address] [place] [address] Dr. Travis Sanchez LYMPH # 1.6 103/ul Normal 1.2-3.8 [facility] Comment on above: Performed By: #### C BC #### [facility] [address] [place] [address] Dr. Travis Sanchez Lymphocytes/100 WBC (Bld) 25.8 % Normal 20.5-60.0 [facility] Comment on above: Performed By: #### C BC #### [facility] [address] [place] [address] Dr. Travis Sanchez MANUAL DIFF REQ NO Normal [facility] Comment on above: Performed By: #### C BC #### [facility] [address] [place] [address] Dr. Travis Sanchez MCH (RBC) [Entitic mass] 30.4 pg Normal 25.9-34.0 [facility] Comment on above: Performed By: #### C BC #### [facility] [address] [place] [address] Dr. Travis Sanchez MCHC (RBC) [Mass/Vol] 33.5 g/dL Normal 29.9-35.2 [facility] Comment on above: Performed By: #### C BC #### [facility] [address] [place] [address] Dr. Travis Sanchez MCV (RBC) [Entitic vol] 90.9 fL Normal 80.0-94.0 [facility] Comment on above: Performed By: #### C BC #### [facility] [address] [place] [address] Dr. Travis Sanchez MONO # 0.4 103/ul Normal 0.3-0.8 [facility] Comment on above: Performed By: #### C BC #### [facility] [address] [place] [address] Dr. Travis Sanchez Monocytes/100 WBC (Bld) 6.4 % Normal 1.7-12.0 [facility] Comment on above: Performed By: #### C BC #### [facility] [address] [address] [address] Travis Sanchez NEUT # 4.0 103/ul Normal 1.4-6.5 [facility] Comment on above: Performed By: #### C BC #### [facility] [address] [address] [address] Travis Sanchez Neutrophils/100 WBC (Bld) 64.8 % Normal 43.0-75.0 [facility] Comment on above: Performed By: #### C BC #### [facility] [address] [address] [address] Travis Sanchez Platelet mean volume (Bld) [Entitic vol] 10.4 fL Normal 9.5-13.5 [facility] Comment on above: Performed By: #### C BC #### [facility] [address] [address] [address] Travis Sanchez PLT 271 103/ul Normal 150-450 [facility] Comment on above: Performed By: #### C BC #### [facility] [address] [address] [address] Travis Sanchez RBC 4.50 106/ul Critically low 4.70-6.10 [facility] Comment on above: Performed By: #### C BC #### [facility] [address] [address] [address] Travis Sanchez WBC 6.1 103/ul Normal 4.0-11.0 [facility] Comment on above: Performed By: #### C BC #### [facility] [address] [address] [address] Tarvis Sanchez DIRECT LDLon 11-13-2021 Cholesterol in LDL [Mass/Vol] 124 mg/dL Normal [facility] Comment on above: Performed By: #### P SASC #### [facility] [address] [address] [address] Travis Sanchez DLDL NORMAL SEE BELOW Normal [facility] Comment on above: Result Comment: <100 mg/dl OPTIMAL 100 - 129 mg/dl NEAR OR ABOVE OPTIMAL 130 - 159 mg/dl BORDERLINE HIGH 160 - 189 mg/dl HIGH >190 mg/dl VERY HIGH Performed By: #### P SASC #### [facility] [address] [address] [address] Travis Sanchez GLYCOHEMOGLOBIN A1Con 2021 ADA RECOMMENDATION SEE BELOW Normal [facility] Comment on above: Result Comment: ADA RECOMMENDED LIMIT 4.0 - 6.0 ADA THERAPEUTIC TARGET < 7.0 ACTION SUGGESTED > 7.0 Performed By: #### S EDR #### [facility] [address] [address] [address] Travis Sanchez Glucose [Mass/Vol] 223 mg/dL Normal [facility] Comment on above: Performed By: #### S EDR #### [facility] [address] [place] [address] Dr. Travis Sanchez HbA1c (Bld) [Mass fraction] 9.4 % Critically high 4.5-6.2 [facility] Comment on above: Performed By: #### S EDR #### [facility] [address] [address] [address] Travis Sanchez LIPID PROFILEon 11-13-2021 CHOL-HDL RATIO NORM SEE BELOW Normal [facility] Comment on above: Result Comment: 3.3 - 4.4 LOW RISK 4.4 - 7.1 AVERAGE RISK 7.1 - 11.0 MODERATE RISK >11.0 HIGH RISK Performed By: #### C BC #### [facility] [address] [place] [address] Dr. Travis Sanchez Cholesterol [Mass/Vol] 265 mg/dL Critically high <=200 [facility] Comment on above: Performed By: #### C BC #### [facility] [address] [address] [address] Travis Sanchez Cholesterol in HDL [Mass/Vol] 37 mg/dL Critically low 40-60 [facility] Comment on above: Performed By: #### C BC #### [facility] [address] [address] [address] Travis Sanchez Cholesterol.total/Linette sterol in HDL [Mass ratio] 7.2 {ratio} Normal [facility] Comment on above: Performed By: #### C BC #### [facility] [address] [address] [address] Travis Sanchez HDL NORMAL > or = 60 mg/dl - LO W CARDIOVASCULAR RISK <40 mg/dl - HIGH CARDIOVASCULAR RISK Normal [facility] Comment on above: Performed By: #### C BC #### [facility] [address] [address] [address] Travis Sanchez Triglyceride [Mass/Vol] 604 mg/dL Critically high <=150 [facility] Comment on above: Performed By: #### C BC #### [facility] [address] [address] [address] Travis Sanchez VLDL CALC 120.8 mg/dL Normal [facility] Comment on above: Performed By: #### C BC #### [facility] [address] [place] [address] Dr. Travis Sanchez PROF 14(COMP METB)on 022 Albumin [Mass/Vol] 3.8 g/dL Normal 3.4-5.0 [facility] Comment on above: Performed By: #### P SASC #### [facility] [address] [place] [address] Dr. Travis Sanchez Albumin/Globulin [Mass ratio] 1.0 {ratio} Normal [facility] Comment on above: Performed By: #### P SASC #### [facility] [address] [place] [address] Dr. Travis Sanchez ALP [Catalytic activity/Vol] 103 U/L Normal 46-116 [facility] Comment on above: Performed By: #### P SASC #### [facility] [address] [id number] Dr. Travis Sanchez ALT [Catalytic activity/Vol] 41 U/L Normal 16-63 [facility] Comment on above: Performed By: #### P SASC #### [facility] [address] [place] [address] Dr. Travis Sanchez Anion gap [Moles/Vol] 14.4 mmol/L Normal [facility] Comment on above: Performed By: #### P SASC #### [facility] [address] [address] [address] Travis Sanchez AST [Catalytic activity/Vol] 17 U/L Normal 15-37 [facility] Comment on above: Performed By: #### P SASC #### [facility] [address] [address] [address] Travis Sanchez Bilirubin [Mass/Vol] 0.3 mg/dL Normal 0.2-1.0 [facility] Comment on above: Performed By: #### P SASC #### [facility] [address] [address] [address] Travis Sanchez Calcium [Mass/Vol] 9.1 mg/dL Normal 8.5-10.1 [facility] Comment on above: Performed By: #### P SASC #### [facility] [address] [address] [address] Travis Sanchez Chloride [Moles/Vol] 99 mmol/L Normal 98-107 [facility] Comment on above: Performed By: #### P SASC #### [facility] [address] [address] [address] Travis Sanchez CO2 [Moles/Vol] 25.7 mmol/L Normal 21.0-32.0 [facility] Comment on above: Performed By: #### P SASC #### [facility] [address] [address] [address] Travis Sanchez Creatinine [Mass/Vol] 0.69 mg/dL Critically low 0.70-1.30 [facility] Comment on above: Performed By: #### P SASC #### [facility] [address] [address] [address] Travis Sanchez EGFR-AF MACANESE >60 Normal >=60 [facility] Comment on above: Performed By: #### P SASC #### [facility] [address] [address] [address] Travis Sanchez EGFR-NON AF MACANESE >60 Normal >=60 [facility] Comment on above: Performed By: #### P SASC #### [facility] [address] [address] [address] Travis Sanchez Globulin (S) [Mass/Vol] 3.9 g/dL Normal [facility] Comment on above: Performed By: #### P SASC #### [facility] [address] [address] [address] Travis Sanchez Glucose [Mass/Vol] 269 mg/dL Critically high 74-106 [facility] Comment on above: Performed By: #### P SASC #### [facility] [address] [address] [address] Travis Sanchez Potassium [Moles/Vol] 4.1 mmol/L Normal 3.5-5.1 [facility] Comment on above: Performed By: #### P SASC #### [facility] [address] [address] [address] Travis Sanchez Protein [Mass/Vol] 7.7 g/dL Normal 6.4-8.2 [facility] Comment on above: Performed By: #### P SASC #### [facility] [address] [address] [address] Travis Sanchez Sodium [Moles/Vol] 135 mmol/L Critically low 136-145 [facility] Comment on above: Performed By: #### P SASC #### [facility] [address] [address] [address] Travis Sanchez Urea nitrogen [Mass/Vol] 11.0 mg/dL Normal 7.0-18.0 [facility] Comment on above: Performed By: #### P SASC #### [facility] [address] [address] [address] Travis Sanchez Urea nitrogen/Creatinine [Mass ratio] 15.9 mg/mg Normal [facility] Comment on above: Performed By: #### P SASC #### [facility] [address] [address] [address] Travis Sanchez URIC ACID SERUMon 11-13-2021 Urate [Mass/Vol] 5.5 mg/dL Normal 3.5-7.2 [facility] Comment on above: Performed By: #### C #### [facility] [address] [address] [address] Travis Weems 09-23-2021 CNOV Office Visit (UROLMN ) MANDIENIO Reinoso ([id number]) 1990 M T Date Time Provider Department 09/23/21 4:00 PM TAHIR DEJESUS During your visit today, we recorded the following information about you: Tahir Dejesus MD 10/06/2021 8:48 AM Signed PATIENT: Enio Raymond [id number] REFERRING MD: Self 09/23/2021 Chief Complaint Post op History of Present Illness Enio Raymond is a very pleasant 30 year old male who presents for post op check up Had recent vasectomy from [facility] urologist office with severe [...] for Dr. Tahir Dejesus by Goran Nuñez, general medical practitioner, on September 23, 2021 I agree with the Chief Complaint, ROS, and Past Histories independently gathered by the clinical direct support staff member including scribe and or medical student and or MIGUEL and or resident or fellow and the remaining scribed note accurately describes my personal service to the patient. Tahir Dejesus MD, MS [facility] Referring Provider: SELF [200] Allergies As of [...] Status:Closed by HERB TEEKERRI on 10/06/21 Normal [facility] US VENOUS DOPPLER R Fernie US VENOUS [...] by: ELIUD IRIZARRY Date: 2021-09-01 13:01 Normal [facility] CONSULTon 08-13-2021 CONSULT HNO ID: [id number] Author: Angel Nelson MD Service: Urology Author Type: Resident Type: Consults Filed: 08/13/2021 4:55 PM Note Text: [facility] UROLOGY CONSULT NOTE Service Date: 08/13/2021 Service Time: 4:55 PM ASSESSMENT AND PLAN: 30 year old male with history of DM2, recent vasectomy presenting from [facility] urologist's office with c/f [...] Angel Nelson MD Urology Resident PGY-2 Pager: [phone] For weekend or after hours issues [place] [phone] HPI: Enio Raymond is a 30 year [...] extremity edema LABS: Pending IMAGING: Pending Normal [facility] Glucose Glucometer (dC) [M ass/Vol]Ordered By: Segun [...] [facility] Comment on above: Result Comment: [facility] Glucose Reference Range is dependent on time and content of last meal. Glucose of more than 200 mg/dL in a nonstressed, ambulatory subject supports the diagnosis of Diabetes Mellitus. PERFORMED BY: [facility] [place] [address] PATHOLOGIST MAINTENANCE AND REPAIR WORKER JOSSELYN ROSEN M.D. Performed By: #### G LULS #### Point of Care testing , US scrotumon 08-10-2021 US scrotum [facility] Main [place] [id number] Ultrasound Report Signed Patient: Enio Raymond MR#: [id number] : 1990 Acct:[id number] Age/Sex: 30 / M ADM Date: 08/10/21 Loc: ER Room: Type: [facility] Attending Dr: Ordering Provider: Segun [...] Estrella Chung M.D.08/10/2021 7:04 PM Dictation Location: [place] [address] Tech: Mariana Caban Transcribed By: PAVEL 08/10/211903 Dictated By: Estrella Chung MD 08/10/211899 Signed By: 08/10/211903 [facility] US scrotumon 08-01-2021 [facility] [address] [address] Ultrasound Report Signed Patient: Enio Raymond MR#: [id number] : 1990 Acct:[id number] Age/Sex: 30 / M ADM Date: 07/31/21 Loc: ER Room: Type: [facility] ER Attending Dr: Ordering Provider: Oliver Diehl [...] Gael Aguilar M.D.08/01/2021 9:01 AM Dictation Location: [place] [address] Tech: [facility] Transcribed By: [facility] 08/01/[address]00 Dictated By: Gael Aguilar DO 08/01/21 0830 Signed By: 08/01/21 0901 Normal [facility] Urinalysison 08-01-2021 Appearance (U) Clear Normal Clear [facility] Comment on above: Order Comment: Name Collection Type:: Clean-Voided Midstream Performed By: #### U A ####[facility] [address] [place] [address] [facility] Bilirubin,Urine Negative Normal Negative [facility] Comment on above: Order Comment: Name Collection Type:: Clean-Voided Midstream Performed By: #### U A ####[address] [address] [facility] Color (U) Yellow Normal Yellow [facility] Comment on above: Order Comment: Name Collection Type:: Clean-Voided Midstream Performed By: #### U A ####[address] [address] [facility] Glucose Ql (U) >=1000 High Normal [facility] Comment on above: Order Comment: Name Collection Type:: Clean-Voided Midstream Performed By: #### U A ####[address] [address] [facility] Ketones Ql (U) Trace High Negative [facility] Comment on above: Order Comment: Name Collection Type:: Clean-Voided Midstream Performed By: #### U A ####[address] [address] [facility] Leukocyte esterase Test strip Ql (U) Negative Normal Negative [facility] Comment on above: Order Comment: Name Collection Type:: Clean-Voided Midstream Performed By: #### U A ####[address] [address] [facility] Nitrite,Urine Negative Normal Negative [facility] Comment on above: Order Comment: Name Collection Type:: Clean-Voided Midstream Performed By: #### U A ####[address] [address] [facility] Occult Blood,Urine Negative Normal Negative [facility] Comment on above: Order Comment: Name Collection Type:: Clean-Voided Midstream Result Comment: PERF ORMED BY: [facility] [address] [place] [address] PATHOLOGIST MAINTENANCE AND REPAIR WORKER JOSSELYN ROSEN M.D. Performed By: #### U A ####[address] [address] [facility] pH (U) 6.0 [pH] Normal 5.0-9.0 [facility] Comment on above: Order Comment: Name Collection Type:: Clean-Voided Midstream Performed By: #### U A ####[address] [address] [place] [address] [facility] Protein,Urine Negative Normal Negative [facility] Comment on above: Order Comment: Name Collection Type:: Clean-Voided Midstream Performed By: #### U A ####[address] [place] [address] [facility] Specificy [place],Urine 1.038 High 1.001-1.030 [facility] Comment on above: Order Comment: Name Collection Type:: Clean-Voided Midstream Performed By: #### U A ####[facility] [place] [address] [facility] Urobilinogen,Urine Normal Normal Normal [facility] Comment on above: Order Comment: Name Collection Type:: Clean-Voided Midstream Performed By: #### U A ####[address] [place] [address] [facility] Bilirubin Test strip Ql (U)O rdered By: Oliver Diehl on 07-31-2021 Bilirubin Ql (U) Negative Negative [facility] Color Auto (U)Ordered By: Myles Diehl on 07-31-2021 Color (U) Yellow Yellow [facility] Ketones Auto test strip (U) [Mass/Vol]Ordered By: Oliver Diehl on 07-31-2021 Ketones (U) [Mass/Vol] Trace Negative [facility] Nitrite Test strip Ql (U)Ord ered By: Oliver Diehl on 07-31-2021 Nitrite Ql (U) Negative Negative [facility] Protein Auto test strip (U) [Mass/Vol]Ordered By: Oliver Diehl on 07-31-2021 Protein (U) [Mass/Vol] Negative Negative [facility] Specific gravity Auto test s trip (U) [Rel density]Ordered By: Oliver Diehl on 07-31-2021 Specific gravity (U) [Rel density] 1.038 1.001-1.030 [facility] Urine clarity by refractomet ry automatedOrdered By: Oliver Diehl on 07-31-2021 Clarity Refractometry automated (U) Clear Clear [facility] Urine glucose measurement by automated test strip (mass/volume)Ordered By: Oliver Diehl on 07-31-2021 Glucose Auto test strip (U) [Mass/Vol] >=1000 mg/dL Normal [facility] Urine hemoglobin detection b y automated test stripOrdered By: Oliver Diehl on 07-31-2021 Hemoglobin Auto test strip Ql (U) Negative Negative [facility] Urine leukocyte esterase det ection by automated test stripOrdered By: Oliver Diehl on 07-31-2021 Leukocyte esterase Auto test strip Ql (U) Negative Negative [facility] Urobilinogen Auto test strip (U) [Mass/Vol]Ordered By: Oilver Diehl on 07-31-2021 Urobilinogen (U) [Mass/Vol] Normal mg/dL Normal [facility] pH Auto test strip (U)Ordere d By: Oliver Diehl on 07-31-2021 pH (U) 6.0 [pH] 5.0-9.0 [facility] Grey 07-25-2021 L - -------- Specimen: [id number] Received: 07/25/21 Status: NIRAV Jacinto Num: [id number] Spec Type: Surgical Subm Dr: Patricio Chakraborty MD Tissues: A VAS DEFERENS - sterilization (LT) B VAS DEFERENS - sterilization (RT) Procedures: HE Stain/2, Gross/Micro L2/2 -------- Patient Age/Sex Location Account Attending Physician -------- Enio Raymond 30/M [place] [id number] Patricio Chakraborty MD -------- SPEC NUM: [id number] RECD: 07/25/21 STATUS: NIRAV BENNETT NUM: [id number] RACHEL: 07/25/21- [facility] DR: Patricio Chakraborty MD ENTERED: 07/25/21 [facility] [address]: Dino [facility] SPEC TYPE: Surgical DEPT: S ORDERED: [...] Specimen: Received: 07/25/21 Status: NIRAV Bennett Num: [id number] Spec Type: Surgical Subm Dr: Patricio Chakraborty MD Tissues: A VAS DEFERENS - sterilization (LT) B VAS DEFERENS - sterilization (RT) Procedures: JOSH Stain/2, Gross/Micro L2/2 -------- Patient: Enio Raymond [id number] (Continued) -------- Specimen: Received: 07/25/21 (Continued) Signed (signature on file) Josselyn Rosen MD 07/28/21 1753 -------- Specimen: Received: 07/25/21 Status: NIRAV Bennett Num: [id number] Spec Type: Surgical Subm Dr: Patricio Chakraborty MD Tissues: A VAS DEFERENS - sterilization (LT) B VAS DEFERENS - sterilization (RT) Procedures: HE Stain/2, Gross/Micro L2/2 -------- Patient: Enio Raymond [id number] (Continued) -------- Specimen: [id number] Received: 07/25/21 (Continued) Microscopic Description A. One glass slide with H E stained material has been examined. The microscopic findings support the above pathologic diagnosis. B. One glass slide with H E stained material has been examined. The microscopic findings support the above pathologic diagnosis. [id number] -------- -------- Specimen: [id number] Received: 07/25/21 Status: NIRAV Bennett Num: [id number] Spec Type: Surgical Subm Dr: Patricio Chakraborty MD Tissues: A VAS DEFERENS - sterilization (LT) B VAS DEFERENS - sterilization (RT) Procedures: HE Stain/2, Gross/Micro L2/2 -------- Patient: Enio Raymond [id number] (Continued) -------- Signed (signature on file) Josselyn Rosen MD 07/28/21 4006 [facility] COVID Quick Testingon 2020 Result Negative [place] Other Covid-19 PCRon 01-21-2021 SARS-CoV-2 (COVID-19) RNA ECTOR+probe Ql (Unsp spec) Not detected [place] [facility] Covid-19 PCR [place] Other Vital Signs Date Time Vital Sign Value Performing Clinician Facility 11-23-2022 11:43-0400 Blood Pressure Location Patricio CHAKRABORTY [facility] 11-23-2022 11:43-0400 Diastolic blood pressure 74 mm[Hg] Patricio CHAKRABORTY [facility] 11-23-2022 11:43-0400 Heart rate 80 /min Patricio CHAKRABORTY [facility] 11-23-2022 11:43-0400 Respiratory rate 16 /min Patricio CHAKRABORTY [facility] 11-23-2022 11:43-0400 Systolic blood pressure 120 mm[Hg] Patricio CHAKRABORTY [facility] 07-13-2022 14:00-0400 Body temperature 97.7 [degF] Ronobir YURIDIA [facility] 07-13-2022 14:00-0400 Diastolic blood pressure 73 mm[Hg] Ronobir YURIDIA [facility] 07-13-2022 14:00-0400 Heart rate 82 /min Ronobir YURIDIA [facility] 07-13-2022 14:00-0400 Respiratory rate 17 /min Ronobir YURIDIA [facility] 07-13-2022 14:00-0400 SaO2% (BldA) [Mass fraction] 95 % Ronobir YURIDIA [facility] 07-13-2022 14:00-0400 Systolic blood pressure 115 mm[Hg] Ronobir YURIDIA [facility] 07-13-2022 12:53-0400 Hourly Rounding Ronobir YURIDIA [facility] 07-13-2022 12:53-0400 Promise to Return Ronobir YURIDIA [facility] 07-13-2022 11:00-0400 gluc 292 mg/dL Ronobir YURIDIA [facility] 07-13-2022 11:00-0400 Hourly Rounding Ronobir YURIDIA [facility] 07-13-2022 11:00-0400 Promise to Return Ronobir YURIDIA [facility] 07-13-2022 10:00-0400 Hourly Rounding Ronobir YURIDIA [facility] 07-13-2022 10:00-0400 Promise to Return Ronobir YURIDIA [facility] 07-13-2022 09:29-0400 Diastolic blood pressure 70 mm[Hg] Ronobir YURIDIA [facility] 07-13-2022 09:29-0400 Systolic blood pressure 108 mm[Hg] Ronobir YURIDIA [facility] 07-13-2022 08:00-0400 Heart rate 77 /min Ronobir YURIDIA [facility] 07-13-2022 08:00-0400 Mean blood pressure 83 mm[Hg] Ronobir YURIDIA [facility] 07-13-2022 08:00-0400 Respiratory rate 18 /min Ronobir YURIDIA [facility] 07-13-2022 08:00-0400 SaO2% (BldA) [Mass fraction] 96 % Ronobir YURIDIA [facility] 07-13-2022 07:00-0400 gluc 238 mg/dL Ronobir YURIDIA [facility] 07-12-2022 20:24-0400 Heart rate 85 /min Ronobir YURIDIA [facility] 07-12-2022 20:23-0400 Mean blood pressure 89 mm[Hg] Ronobir YURIDIA [facility] 07-12-2022 20:23-0400 Body temperature 97.88 [degF] Ronobir YURIDIA [facility] 07-12-2022 17:00-0400 Mean blood pressure 88 mm[Hg] Ronobir YURIDIA [facility] 07-12-2022 17:00-0400 Body temperature 97.52 [degF] Ronobir YURIDIA [facility] 07-12-2022 16:20-0400 Mean blood pressure 93 mm[Hg] Ronobir YURIDIA [facility] 07-12-2022 12:38-0400 Respiratory rate 16 /min Ronobir YURIDIA [facility] 07-12-2022 00:44-0400 Heart rate 105 /min Ronobir YURIDIA [facility] 07-12-2022 00:00-0400 Mean blood pressure 97 mm[Hg] Ronobir YURIDIA [facility] 07-11-2022 23:00-0400 Mean blood pressure 82 mm[Hg] Ronobir YURIDIA [facility] 07-11-2022 20:13-0400 Heart rate 119 /min Ronobir YURIDIA [facility] 07-11-2022 20:10-0400 gluc 317 mg/dL Ronobir YURIDIA [facility] 07-11-2022 20:10-0400 gluc Ronobir YURIDIA [facility] 06-11-2022 08:45-0400 Blood Pressure Location MARIANA BRIGGS [facility] 06-11-2022 08:45-0400 Diastolic blood pressure 82 mm[Hg] MARIANA BRIGGS [facility] 06-11-2022 08:45-0400 Heart rate 88 /min MARIANA BRIGGS [facility] 06-11-2022 08:45-0400 Systolic blood pressure 132 mm[Hg] MARIANA BRIGGS [facility] 04-04-2022 07:30-0500 Body temperature 97.4 [degF] PHYSICIAN NO [facility] 04-04-2022 07:30-0500 Diastolic blood pressure 111 mm[Hg] PHYSICIAN NO [facility] 04-04-2022 07:30-0500 Heart rate 100 /min PHYSICIAN NO [facility] 04-04-2022 07:30-0500 SaO2% (BldA) [Mass fraction] 97 % PHYSICIAN NO [facility] 04-04-2022 07:30-0500 Systolic blood pressure 175 mm[Hg] PHYSICIAN NO [facility] 04-03-2022 20:25-0500 Respiratory rate 16 /min PHYSICIAN NO [facility] 04-02-2022 16:30-0500 Body height 193.04 cm PHYSICIAN NO [facility] 04-01-2022 19:34-0500 Body weight 184.61 kg PHYSICIAN NO [facility] 12-15-2021 14:10-0400 Blood Pressure Location Patricio CHAKRABORTY [facility] 12-15-2021 14:10-0400 Diastolic blood pressure 87 mm[Hg] Patricio CHAKRABORTY [facility] 12-15-2021 14:10-0400 Heart rate 75 /min Patricio CHAKRABORTY [facility] 12-15-2021 14:10-0400 Respiratory rate 16 /min Patricio CHAKRABORTY [facility] 12-15-2021 14:10-0400 Systolic blood pressure 137 mm[Hg] Patricio CHAKRABORTY [facility] 10-06-2021 11:21-0400 Blood Pressure Location Patricio CHAKRABORTY [facility] 10-06-2021 11:21-0400 Diastolic blood pressure 81 mm[Hg] Patricio CHAKRABORTY [facility] 10-06-2021 11:21-0400 Heart rate 104 /min Patricio CHAKRABORTY [facility] 10-06-2021 11:21-0400 Respiratory rate 16 /min Patricio CHAKRABORTY [facility] 10-06-2021 11:21-0400 Systolic blood pressure 125 mm[Hg] Patricio CHAKRABORTY [facility] 08-10-2021 17:39-0400 Body height 190.5 cm Jackelin Hale Work Phone: [facility] 08-10-2021 17:39-0400 Body mass index (BMI) [Ratio] 51 kg/m2 Jackelin Aichholz Work Phone: [facility] 08-10-2021 17:39-0400 Body temperature 98.5 [degF] Jackelin Aichholz Work Phone: [facility] 08-10-2021 17:39-0400 Body weight 185 kg Jackelin Aichholz Work Phone: [facility] 08-10-2021 17:39-0400 Diastolic blood pressure 81 mm[Hg] Jackelin Aichholz Work Phone: [facility] 08-10-2021 17:39-0400 Heart rate 122 /min Jackelin Aichholz Work Phone: [facility] 08-10-2021 17:39-0400 Respiratory rate 23 /min Jackelin Aichholz Work Phone: [facility] 08-10-2021 17:39-0400 SaO2% (BldA) [Mass fraction] 96 % Jackelin Aichholz Work Phone: [facility] 08-10-2021 17:39-0400 Systolic blood pressure 134 mm[Hg] Jackelin Aichholz Work Phone: [facility] 07-31-2021 22:13-0400 Body temperature 98.5 [degF] Jackelin Aichholz Work Phone: [facility] 07-31-2021 22:13-0400 Diastolic blood pressure 109 mm[Hg] Jackelin Aichholz Work Phone: [facility] 07-31-2021 22:13-0400 Heart rate 115 /min Jackelin Aichholz Work Phone: [facility] 07-31-2021 22:13-0400 Respiratory rate 22 /min Jackelin Aichholz Work Phone: [facility] 07-31-2021 22:13-0400 SaO2% (BldA) [Mass fraction] 95 % Jackelin Aichholz Work Phone: [facility] 07-31-2021 22:13-0400 Systolic blood pressure 177 mm[Hg] Jackelin Darlynholz Work Phone: [facility] 07-31-2021 22:12-0400 Body height 190.5 cm Jackelin Warrenhholz Work Phone: [facility] 07-31-2021 22:12-0400 Body mass index (BMI) [Ratio] 51.7 kg/m2 Jackelinkemar Kelleyhholz Work Phone: [facility] 07-31-2021 22:12-0400 Body weight 188 kg Jackelin Santizoholz Work Phone: [facility] 03-24-2021 12:30-0500 Body height 190.5 cm Shruthi Analilia Other [place] Other 03-24-2021 12:30-0500 Body temperature 96 [degF] Shruthi Analilia Other [facility] [facility] 03-24-2021 12:30-0500 SaO2% (BldA) [Mass fraction] 98 % Shruthi Analilia Other [place] Other 01-21-2021 11:15-0500 Body height 190.5 cm Bailey Ginty Other [facility] Other 01-21-2021 11:15-0500 Body mass index (BMI) [Ratio] 49.99 kg/m2 Bailey Ginty Other [facility] Other 01-21-2021 11:15-0500 Body temperature 98.1 [degF] Bailey Ginty Other [facility] Other 01-21-2021 11:15-0500 Body weight 181.44 kg Bailey Guilherme Other [place] Other 01-21-2021 11:15-0500 SaO2% (BldA) [Mass fraction] 94 % Bailey Vanegas Other [place] Other Encounters Encounter Date Encounter Type Care Provider Facility Start: 03-29-2023 ambulatory Patricio CHAKRABORTY Facili ty:[facility] [place] Start: 03-29-2023 End: 03-29-2023 Patient encounter procedure Patricio CHAKRABORTY [facility] [place] Start: 11-23-2022 End: 11-24-2022 ambulatory Patricio CHAKRABORTY Facility:[facility] [place] Start: 11-23-2022 End: 11-23-2022 Patient encounter procedure Patricio CHAKRABORTY [facility] Start: 08-17-2022 End: 08-18-2022 ambulatory Patricio CHAKRABORTY Facility:[facility] [place] Start: 08-04-2022 ambulatory SHRUTHI DÍAZ Facility: Start: 07-14-2022 ambulatory SHRUTHI DÍAZ Facility: Start: 07-11-2022 End: 07-13-2022 ambulatory Wilian SHI Facility:[facility] Start: 07-11-2022 End: 07-13-2022 Observation Wilian SHI [facility] Start: 07-07-2022 End: 07-07-2022 ambulatory SHRUTHI DÍAZ [...] procedure MARIANA E CHESTER [facility] [place] Start: 05-23-2022 End: 05-24-2022 ambulatory NOLAN FRANSISCO Facility:[facility] Start: 05-04-2022 ambulatory SHRUTHI DÍAZ Facility: [facility] Start: 04-01-2022 End: 04-04-2022 Evaluation and management of inpatient Dell Kim Facility:[facility] Start: 04-01-2022 End: 04-04-2022 Evaluation and management of inpatient PHYSICIAN MARC [facility] [place] [address] Work Phone: Start: 04-01-2022 End: 04-01-2022 ambulatory LUANN SEYMOUR Facility:[facility] Start: 03-17-2022 End: 03-18-[address] GERTRUDIS PINA . Facility:[facility] Start: 02-16-2022 End: 02-17-2022 ambulatory Patricio CHAKRABORTY Facility:[facility] Start: 02-16-2022 End: 02-16-2022 Lab Drop off Patricio CHAKRABORTY [facility] Start: 02-16-2022 End: 02-17-2022 ambulatory Particio CHAKRABORTY Facility: [place] Start: 02-16-2022 End: 02-16-2022 Patient encounter procedure Patricio CHAKRABORTY [facility] [place] Start: 01-06-2022 End: 02-04-2022 ambulatory SHAIKH Patience MOSER Facility:[facility] Start: 12-15-2021 End: 10-11-2022 ambulatory Patricio CHAKRABORTY Facility:[facility] [place] Start: 12-15-2021 End: 12-15-2021 Patient encounter procedure Patricio Vidales CHAKRABORTY [facility] Start: 12-07-2021 End: 01-05-2022 ambulatory SHRUTHI [...] with patient Viktor Gilbert MD Work Phone: [facility] Start: 10-09-2021 ambulatory MICROSTRATEGY BI DEVELOPER JACKELIN GEOFFREY Facil ity:[facility]1 Start: 10-06-2021 End: 10-06-2021 Patient encounter procedure Patricio Vidales CHAKRABORTY [facility] Start: 10-06-2021 End: 11-05-2021 ambulatory Patience SHANTI Facility:[facility] Start: 09-23-2021 End: 09-23-2021 Patient encounter procedure Tahir Dejesus MD Work Phone: Urology Comment on above: Vasectomy status (Pr imary Dx) Start: 09-23-2021 End: 09-24-2021 ambulatory Tahir Dejesus MD Work Phone: Urology Start: 09-10-2021 Telephone encounter Alana [facility] & Comment on above: Returning Patient's Call Start: 09-05-2021 End: 10-03-2021 ambulatory MICROSTRATEGY BI DEVELOPER JACKELIN WARRENPatienceADALI Facility:[facility] Start: 09-02-2021 End: 09-05-2021 ambulatory SHAIKH Patience MOSER Facility:[facility] Start: 09-01-2021 End: 09-02-2021 ambulatory MICROSTRATEGY BI DEVELOPER JACKELIN HALE Facility:[facility] Start: 08-13-2021 End: 08-13-2021 Patient encounter procedure Patricio Sobeida PALMER [facility] [place] Start: 08-10-2021 End: 08-10-2021 Emergency department patient visit PHYSICIAN NO FAMILY Facility:[facility] Start: 08-10-2021 End: 08-10-2021 Emergency department patient visit Jackelin Geoffrey Work Phone: [facility] Start: 08-01-2021 End: 08-01-2021 Emergency department patient visit PHYSICIAN NO FAMILY Facility:[facility] Start: 07-31-2021 End: 07-31-2021 Emergency department patient visit Jackelin Warrenpatienceadali Work Phone: [facility]-Emergency Room Start: 07-25-2021 End: 07-25-2021 ambulatory Patricio Chakraborty Facility:[facility] Start: 07-25-2021 End: 07-25-2021 Departed Referred Jackelin Geoffrey Work Phone: [facility] [place] Start: 03-24-2021 End: 03-24-2021 ambulatory Shruthi Billingsley Other [place] Other Start: 03-24-2021 Office outpatient vi sit 15 minutes Shruthi Billingsley [facility] Start: 01-23-2021 End: 01-23-2021 ambulatory Bailey Ginty Other [place] Other Start: 01-23-2021 Telephone encounter Bailey Ginty [facility] Start: 01-21-2021 End: 01-21-2021 ambulatory Bailey Ginty Other [facility] [employer] Other Start: 01-21-2021 Office outpatient vi sit 15 minutes Bailey Vanegas [facility] Procedures Date Procedure Procedure Detail Performing Clinician Start: 11-13-2021 PSA screening NOE HALE Comment on above: Performed By: #### P [facility] #### [facility] [address] [place] [address] Dr. Travis Sanchez Start: 08-13-2021 H/O: vasectomy [...] Date Care Activity Detail Author Start: 04-04-2022 [facility] Start: 04-01-2022 Referral to Commissions Specialist [facility] Start: 04-01-2022 Hospital admission [facility] Start: 11-06-2021 Influenza vaccination INFLUENZA (#1) [facility] Start: 07-31-2021 Echography of scrotu m and contents US scrotum [facility] Start: 12-14-2007 HEPATITIS B (1 of 3 - Risk 3-dose series) HEPATITIS B (1 of 3 - Risk 3-dose series) [facility] Start: 12-14-2007 Urine microalbumin profile DTAP,TDAP,TD (1 - Tdap) [facility] Start: 2006 ANNUAL PCP TEAM SKID ADZER JULIÁN DISEASE VISIT ANNUAL PCP TEAM CHRONIC DISEASE VISIT [facility] Start: 2006 Hepatitis B surface antibody level LDL CHOLESTEROL [facility] Start: 2006 HEPATITIS C SCREENING HEPATITIS C SC REENING [facility] Start: 2006 HIV SCREENING HIV SCREENING [facility] Start: 1998 3 comp foot exam completed DIABETIC FOOT EXAM [facility] Start: 1998 Hepatitis B screening URINE AL BUMIN:CREATININE RATIO [facility] Start: 1998 Hepatitis C antibody , confirmatory test DILATED RETINAL EXAM [facility] Start: 1994 PNEUMOCOCCAL (1 - PCV) PNEUMOCOCCAL (1 - PCV) [facility] Start: 1993 Hemoglobin A1c/Hemoglobin.total in Blood HBA1C [facility] Start: 06-13-1989 COVID-19 VACCINE (#1) COVID-19 VACCI NE (#1) [facility] Start: 1988 HEPATITIS B (1 of 3 - 3-dose series) HEPATITIS B (1 of 3 - 3-dose series) [facility] Patient Education [facility] Work Phone: Patient referral [facility] Work Phone: URINALYSIS, REFLEX MICROSCOPIC URINALYSIS, REFLEX MICROSCOPIC Lab Routine Screening for genitourinary condition Ordered: 09/23/2021 [facility] Work Phone: Comment on above: Ordered: 09/23/2021 [facility] Immunizations Immunization Date Immunization Notes Care Provider Salima eason 03-16-2006 tetanus toxoid, redu sindy diphtheria toxoid, and acellular pertussis vaccine, adsorbed MARIANA CHESTER [facility] 07-19-2001 measles, mumps and rubella virus vaccine MARIANA CHESTER [facility] 10-28-1994 DTaP, unspecified formulation MARIANA CHESTER [facility] 06-24-1990 Hib, unspecified formulation MARIANA CHESTER [facility] 03-18-1990 Hib, unspecified formulation MARIANA BRIGGS [facility] 03-18-1990 measles, mumps and rubella virus vaccine MARIANA BRIGGS [facility] Payers Date Payer Category Payer Medicaid [place] [employer] [employer] [id number] 2019-Present [phone] [address] [place] [address] Medicaid [id number] 2019 Medicaid [place] [id number] 2019-Present [phone] [place] [address] Medicaid [id number] 1988 Unknown [id number] 2.16.840.1.911520.3.579.2.5 93 1988 Unknown [id number] 2.16.840.1.255187.3.579.2.5 93 1988 Unknown [id number] 2.16.840.1.888916.3.579.2.5 93 1988 Unknown [id number] 2.16.840.1.794091.3.579.2.5 93 1988 Unknown [id number] 2.16.840.1.286526.3.579.2.5 93 1988 Unknown [id number] 2.16.840.1.943562.3.579.2.5 93 1988 Unknown [id number] 2.16.840.1.818475.3.579.2.5 93 1988 Unknown [id number] 2.16.840.1.279222.3.579.2.5 93 1988 Unknown [id number] 2.16.840.1.605155.3.579.2.5 93 1988 Unknown [id number] 2.16.840.1.141321.3.579.2.5 93 1988 Unknown [id number] 2.16.840.1.448722.3.579.2.5 93 1988 Unknown [id number] 2.16.840.1.932955.3.579.2.5 93 1988 Unknown [id number] 2.16.840.1.444492.3.579.2.5 93 1988 Unknown [id number] 2.16.840.1.933456.3.579.2.5 93 1988 Unknown [id number] 2.16.840.1.494849.3.579.2.5 93 1988 Unknown [id number] 2.16.840.1.720396.3.579.2.5 93 1988 Unknown [id number] 2.16.840.1.183284.3.579.2.5 93 1988 Unknown [id number] 2.16.840.1.114327.3.579.2.5 93 1988 Unknown [id number] 2.16.840.1.462140.3.579.2.5 93 1988 Unknown [id number] 2.16.840.1.065290.3.579.2.5 93 1988 Unknown [id number] 2.16.840.1.403207.3.579.2.5 93 1988 Unknown [id number] 2.16.840.1.582521.3.579.2.7 27 1988 Unknown [id number] 2.16.840.1.971708.3.579.2.7 27 1988 Unknown [id number] 2.16.840.1.616345.3.579.2.7 27 1988 Unknown [id number] 2.16.840.1.924509.3.579.2.7 27 1988 Unknown [id number] 2.16.840.1.915008.3.579.2.7 27 1988 Unknown [id number] 2.16.840.1.449100.3.579.2.7 27 1988 Unknown [id number] 2.16.840.1.984708.3.579.2.7 27 1988 Unknown [id number] 2.16.840.1.391252.3.579.2.7 27 1959 Medicaid [id number] Self-pay [id number] Unknown [place] BC/BS [id number] Unknown [id number] 2.16.840.1.643325.19 Unknown [id number] 2.16.840.1.086340.3.579.2.5 31 Unknown [id number] 2.16.840.1.003447.3.579.2.5 31 Unknown [id number] 2.16.840.1.210222.3.579.2.5 31 Unknown [id number] 2.16.840.1.278601.3.579.2.5 31 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 [employer] [facility] [id number] Social History Date Type Detail Facility Start: 10-06-2020 [facility] Start: 10-07-2003 End: 10-06-2020 History of tobacco use [place] [employer] Other Start: 1990 Sex Assigned At Male [facility] Start: 06-09-2021 End: 02-16-2022 Tobacco smoking status Light tobacco smoker (finding) [facility] Tobacco smoking status Smokeless tobacco user within last 30 days [facility] Start: 07-31-2021 End: 04-02-2022 Tobacco smoking status NHIS Smoker (finding) [facility] Start: 08-13-2021 [facility] History of tobacco use Cigarette Smoker [facility] Start: 08-13-2021 Cigarettes smoked current (pack per day) - Reported 0.5 [facility] Start: 08-18-2021 End: 10-30-2021 Alcohol intake Lifetime non-drinker (finding) [facility] Start: 08-13-2021 History SDOH Alcohol Frequency 1 [facility] Start: 1990 Sex Assigned At Not on file [facility] Start: 08-18-2021 End: 09-23-2021 Exposure to SARS-CoV-2 (event) Not sure [facility] Start: 10-07-2021 End: 10-17-2021 Exposure to SARS-CoV-2 (event) Unable to assess [facility] Start: 11-23-2022 Tobacco smoking status Never s moked tobacco (finding) [facility] Goals Date Patient Goal Desired Activity /State Functional Status Date Assessment Result Facility 11-23-2022 Functional Status N/A [facility] 07-12-2022 Functional Status No [facility] 07-11-2022 Functional Status [facility] 06-11-2022 Functional Status N/A [facility] 04-04-2022 Functional status Patient at [facility] Work Phone: 02-16-2022 Functional Status N/A [facility] 12-15-2021 Functional Status N/A [facility] 10-06-2021 Functional Status N/A [facility] Mental Status Date Assessment Result Facility 04-04-2022 Cognitive function Cognitive Sta tus Patient at Baseline [facility] Work Phone: Clinical Notes 01-21-2021 to 11-23-2022 [...] therapy. Follow these instructions at home: Take hseg-zew-tpofqkh and prescription medicines only as told by [...] provider. Document Revised: 10/24/2020 Document Reviewed: 10/24/2020 PingMD Patient Education 2022 [employer]. 11/23/2022 12:46:35 Overactive Bladder, Adult Overactive Bladder, [...] your health care provider. General instructions Take bgfr-lfr-ifnfrxj and prescription medicines only as told by [...] provider. Document Revised: 11/11/2020 Document Reviewed: 11/11/2020 PingMD Patient Education 2022 [employer]. 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 Troponin 3 Hr. Troponin 6 Hr. Troponin 9 Hr. UA With Cult Reflex Urine Culture Future Appointments Appointment Date:08/17/2022 10:30:00 AM Scheduled Provider:Patricio CHAKRABORTY MD Location:[facility] Appointment Type:URO Office Visit Future Scheduled Tests Laboratory* Semen Analysis Post Vasectomy 10/06/21 * Semen Analysis Post Vasectomy 10/06/21 [facility]05-08[facility]2023 [facility]Fisher [facility] CenterComment on above:Result Comment: Electronically Signed By: RENALDO TORREZ, Parvin\.br\Date and Time Signed: 07/13/22 10:19 [id number] Hospital Discharge instructions Patient Education 07/13/2022 10:17:27 Hypotension, Sgjt-tr-Kpxs Hypotension As your heart beats, it forces [...] up quickly after you eat. Medicines Take zamj-gcz-jklnfpd and prescription medicines only as told by [...] provider. Document Revised: 10/13/2021 Document Reviewed: 10/13/2021 PingMD Patient Education 2022 [employer]. 07/13/2022 10:17:23 Urinary Tract Infection, Adult Urinary [...] Treatment for this condition includes: Antibiotic medicine. Elqi-mzw-pqtoiro medicines to treat discomfort. Drinking enough water [...] Follow these instructions at home: Medicines Take wpng-ofk-rjpxzgh and prescription medicines only as told by [...] provider. Document Revised: 10/04/2020 Document Reviewed: 10/04/2020 PingMD Patient Education 2022 [employer]. Follow Up Care 07/11/2022 20:06:03 With:SHRUTHI DÍAZ Address: [address] [place] [address]- [phone] Business (1) When:07/17/2022 15:15:00 Comments:Call for followup appointment [facility]05-07-2023 [facility]Veterans Health AdministrationComment on above:Result Comment: Electronically Signed By: Wilian SHI DO\Date and Time Signed: 07/12/22 03:16 [id number] NoteCONSULTATION CONSULTATION DATE: 06/25/2022 TO: Shruthi Díaz [...] I have given him 10 pills of Moseley to trial and to have available for [...] our patients to inform us about any jgvs-bjr-bcymqoz medications or herbal remedies/nutritional supplements/alternative remedies. 2. [...] treatment options with their primary care provider.[facility] [id number] Hospital Discharge instructions Patient Education 06/11/2022 08:51:48 [...] fried and sweet foods. General instructions Take mnrr-lgn-fksetal and prescription medicines only as told by [...] 12/19/2009 Document Revised: 06/15/2019 Document Reviewed: 03/10/2018 PingMD Patient Education 2020 [employer]. Follow Up Care 06/04/2022 15:50:17 With:MARIANA BRIGGS PA-C, URL Address: [address] [facility] [place] [address] [phone] When: Unknown [facility] 01-28-2023 Discharge summary Author Dell Kim [facility] April 04, 2022 11:32am Note Date/Time April 04, 2022 1 1:30am 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 Work Phone: 1(472) 550-523301-27-2023 Progress note Author Dell Kim [facility] April 03, 2022 1:47pm Note Date/Time April 03, 2022 1 :47pm [facility] [address] [place] [address] Psychiatry Progress Note Signed Patient: Enio Raymond MR#: [id number] : 1990 Acct:[id number] Age/Sex: 31 / M Adm Date: 3 Loc: Room: [address] [place] [address] Type : ADM IN Attending Dr: Dell [...] <Electronically signed by Dell Kim MD> 04/03/227 [facility] Work Phone: 1(199) 372-854801-26-2023 History and physical note Author Dell Kim [facility] April 02, 2022 1:07pm Note Date/Time April 02, 2022 1 :03pm 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 Work Phone: 1(621) 666-989612-12-2022 Hospital Discharge instructions Patient Education 02/16/2022 08:54:53 [...] fried and sweet foods. General instructions Take zjzh-skx-lcfkcus and prescription medicines only as told by [...] 12/19/2009 Document Revised: 06/15/2019 Document Reviewed: 03/10/2018 ElseDecisionView Patient Education 2020 [employer]. Follow Up Care 12/15/2021 15:51:03 With:PALMER TORREZ, Patricio Vidales, URL Address: [facility] [address] [place] [address]- When: Unknown [facility] 10-10-2022 Hospital Discharge instructions Patient Education [...] nerve stimulation). For women, using a medical office manager to prevent urine leaks. This is a [...] right after experiencing incontinence. General instructions Take huif-axl-tofgnvd and prescription medicines only as told by [...] 04/01/2005 Document Revised: 03/04/2018 Document Reviewed: 06/03/2017 PingMD Patient Education 2020 [employer]. Follow Up Care 10/06/2021 12:21:17 With:PALMER TORREZ, Patricio Vidales, URL Address: [facility] [address] [place] [address]- [phone] When:02/23/2022 [facility] 08-25-2022 NoteHNO ID: [id number] Author: Viktor Gilbert MD Service: ? Author [...] Spent: 21-30 minutes Viktor Gilbert MD, MS, [facility] Department of Cardiovascular Medicine [address], [facility] [place] [address] Appointments: (Cardiology); (Vascular Medicine) This note was dictated using a voice recognition software. Please excuse any inadvertent typographical/grammatical/syntax errors that may have escaped the final proofread. Please don't hesitate to contact my office for any clarification.[facility]08-25-2022 History of Present illness Narrative* Viktor Gilbert [...] Spent: 21-30 minutes Viktor Gilbert MD, MS, [facility] Department of Cardiovascular Medicine [address], [place] [address] Appointments: (Cardiology); (Vascular Medicine) This note was dictated using a voice recognition software. Please excuse any inadvertent typographical/grammatical/syntax errors that may have escaped the final proofread. Please don't hesitate to contact my office for any clarification. [facility] Hospital Discharge instructions Patient Education 10/06/2021 12:05:20 [...] help you get to a healthyweight. Take thlt-hjs-xpkuwqd and prescription medicines only as told by [...] 04/14/2006 Document Revised: 10/10/2018 Document Reviewed: 10/10/2018 PingMD Patient Education 2020 [employer]. Follow Up Care 10/01/2021 14:34:21 With:PALMER TORREZ, Patricio Vidales, URL Address: [facility] [address], [place] [address] [phone] When:Within 2 Month(s) [facility] 07-19-2022 NoteHNO ID: [id number] Author: Tahir Dejesus MD Service: ? Author Type: Physician Type: Progress Notes Filed: 10/06/2021 8:48 AM Note Text: PATIENT: Enio Raymond [id number] REFERRING MD: Harsh 09/23/2021 Chief Complaint Post op History of Present Illness Enio Raymond is a very pleasant 30 year old male who presents for post op check up Had recent vasectomy from [facility] urologist office with severe [...] independently gathered by the clinical direct support staff member including scribe and or medical student and or MIGUEL and or resident or fellow and the remaining scribed note accurately describes my personal service to the patient. Tahir Dejesus MD, MS [facility] History of Present illness Narrative* Tahir Dejesus MD - 09/23/2021 4:00 PM EDT PATIENT: Enio Raymond [id number] REFERRING MD: Self 09/23/2021 Chief Complaint Post op History of Present Illness Enio Raymond is a very pleasant 30 year old male who presents for post op check up Had recent vasectomy from [facility] urologist office with severe [...] independently gathered by the clinical direct support staff member including scribe and or medical student and or MIGUEL and or resident or fellow and the remaining scribed note accurately describes my personal service to the patient. Tahir Dejesus MD, MS [facility] [place] [facility] documented in this encounterK[facility] Health07-19-2022 NotePatient Outreach (UROLMN) ENIO RAYMOND ([id number]) 1990 M T Date Time Provider Department 09/23/21 TAHIR DEJESUS During your visit today, we recorded the following information about you: Allergies As of Date: 09/23/2021 (No Known Allergies) Date Reviewed: 09/23/2021 Reviewed by: Rell Gallegos MA - Fully Assessed Visit Diagnosis:Screening for genitourinary condition [Z13.89] Order(s):URINALYSIS, REFLEX MICROSCOPIC [[id number]] Order #: [id number]. #:[id number] Prescriptions as of 09/26/2021 - warfarin (COUMADIN) [...] 08/27/2021 Encounter Status:Closed by KATALINA BILLINGS on 09/26/21[facility] 09-10-2021 Miscellaneous Notes* Telephone Encounter - Alana [...] answered. 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 S/p 750cc albumin with good [...] of this encounter (statuses as of 09/10/2021) [facility] of Past illness Narrative* Problem Noted [...] of this encounter (statuses as of 09/26/2021) [facility] History of Past illness Narrative* Problem Noted [...] this AM in setting of DKA/Fourn[place] Gangrene, [place]/Central line placed. S/p 750cc albumin with good [...] of this encounter (statuses as of 10/06/2021) [facility] of Past illness Narrative* Problem Noted [...] of this encounter (statuses as of 10/30/2021) [facility] Discharge instructions Patient Education 08/13/2021 12:24:12 [...] an athletic support cup for comfort. Take ksds-gcx-qkbeibp and prescription medicines only as told by [...] 03/27/2011 Document Revised: 02/04/2018 Document Reviewed: 05/10/2017 Ping[employer] Patient Education 2020 [employer]. Follow Up Care 08/12/2021 16:38:44 With:PALMER TORREZ, Patricio Vidales, URL Address: [facility] [address], [place] [address]- When: Unknown [facility] 01-17-2022 Evaluation note* Encounter [...] care instructions given in writting by [facility] Care At Home document. [place] Other 11-16-2021 Evaluation note* Encounter Date Diagnosis [...] care instructions given in writting by [facility] Care At Home document [place] Other Evaluation + Plan note No data available for this section [facility] Evaluation + Plan note Future Appointments Appointment Date:12/15/2021 01:15:00 PM Scheduled Provider:Patricio CHAKRABORYT MD Location:[facility] Appointment Type:URO Office Visit Diagnostic Tests Pending * Electrolyte Panel 10/06/21 Future Scheduled Tests Laboratory* Semen Analysis Post Vasectomy 10/06/21 * Semen Analysis Post Vasectomy 10/06/21 [facility] evaluation + Plan note Future Appointments Appointment Date:02/16/2022 01:15:00 PM Scheduled Provider:Patricio CHAKRABORTY MD Location:[facility] Appointment Type:URO Office Visit Diagnostic Tests Pending * Electrolyte Panel 12/15/21 Future Scheduled Tests Laboratory* Semen Analysis Post Vasectomy 10/06/21 * Semen Analysis Post Vasectomy 10/06/21 [facility] evaluation + Plan note Future Appointments Appointment Date:08/17/2022 10:30:00 AM Scheduled Provider:Patricio CHAKRABORTY MD Location:[facility] Appointment Type:URO Office Visit Future Scheduled Tests Laboratory* Semen Analysis Post Vasectomy 10/06/21 * Semen Analysis Post Vasectomy 10/06/21 [facility] evaluation + Plan note Future Appointments Appointment Date:03/29/2023 11:15:00 AM Scheduled Provider:Patricio CHAKRABORTY MD Location:[facility] Appointment Type:URO Office Visit Diagnostic Tests Pending * Testosterone Level Total 11/23/22 * Prolactin Level 11/23/22 [facility] evaljmxsct noteNo assessment information available [facility] [employer] Work Phone: Evaluation noteNo InformationNortGeisinger-[facility] [employer] Other Evaluation note* Diagnosis Screening for genitourinary condition Screening for other and unspecified genitourinary condition documented in this encounter [facility] note* Diagnosis Vasectomy status- Primary documented in this encounter [facility] note* Diagnosis Multiple subsegmental pulmonary emboli without acute cor pulmonale (HCC)- Primary Anticoagulation management encounter Encounter for therapeutic drug monitoring documented in this encounter [facility] note* Diagnosis Onset Date Resolution Status Depression acute [facility] [employer] Work Phone: Hisvbbx general Narrative - Reported* Type Description Date Medical History fx rt great toe Medical History diabetes mallitus Medical History mood disorder Surgical History arthroscopic knee surgery [place] [facility] Other Hospital Discharge instructions No data available for this section [facility] Additional Instructions Regular Diet No Activity [facility] [employer] Work Phone: Progress note No data available for this section [facility] Chief Complaint and Reason for Visit [...] Documents on File Type Date Recorded 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 Advance Directive(s) 08/13/2021 5:01 PM [...] DÍAZ CNP Address: Address: [address] [facility] [place] [address] [address] Team Status: Inactive Member Role Status [...] section and content) DATE CREATED AUTHOR 08/14/2021 [facility] DATE CREATED AUTHOR AUTHOR'S ORGANIZ ATION 04/04/2022 [facility] DATE CREATED AUTHOR AUTHOR'S ORGANIZ ATION 07/17/2022 [facility] DATE CREATED AUTHOR AUTHOR'S ORGANIZ ATION 09/22/2022 [facility] DATE CREATED AUTHOR AUTHOR'S ORGANIZ ATION 12/11/2022 [facility] REASON FOR VISIT (unrecogniz ed [...] or prosecute any alcohol or drug abuse patient.[facility] HealthIn the event this information is protected by the Federal Confidentiality of Alcohol and Drug Abuse Patient Records regulations: The Federal rules restrict any use of the information to criminally investigate or prosecute any alcohol or drug abuse patient.[facility] HealthIn the event this information is protected by the Federal Confidentiality of Alcohol and Drug Abuse Patient Records regulations: The Federal rules restrict any use of the information to criminally investigate or prosecute any alcohol or drug abuse patient.[facility] HealthIn the event this information is protected by the Federal Confidentiality of Alcohol and Drug Abuse Patient Records regulations: The Federal rules restrict any use of the information to criminally investigate or prosecute any alcohol or drug abuse patient.[facility] FOR RECORDS PERTAINING TO PATIENTS WHO ARE [...] BE BASED ON THE PRIMARY CLINICAL RECORDS. [facility]. provides no warranty or guarantee of the accuracy or completeness of information in this document.
[2024-10-07 09:49] LABS: Cholesterol 179 mg/dL (<=200); HDL Cholesterol 49 mg/dL (40-60); Triglycerides 78 mg/dL (<=150); VLDL CHOLESTEROL 15.6 mg/dL
== END 2024-10-07 08:45 | disposition home or self-care (01) ==
LOC: LAB 08:45
PROVIDERS: Family Provider Family Medicine; PCP Nurse Practitioner Family; Visit Provider Nurse Practitioner Family
DX: E29.1 Testicular hypofunction (principal); E11.9 Type 2 diabetes mellitus without complications
CPT/HCPCS: 36415; 80061; 83036; 84403

== ENCOUNTER 2025-01-30 13:59 | Outpatient (OUT) | payer OTHER, SELFPAY ==
--- OUTSIDE RECORDS SUMMARY | 2024-09-18 03:30 | XMS_ITS ---
Author Organization [facility] vices Address [address] [place] [phone] Care Team Providers Care Finance Assistant Name Role Phone Carinajordan Lisa Unavailable [phone] REASON FOR VISIT MANAGER ENROLLMENT Comp Exam Encounters Encounter Location Date Provider Diagnosis [facility] [address] [place], [place] [id number] 09/18/2024 Lisa Siddiqui Plan Of Treatment No Information Progress Notes * Lincoln RAYMONDOB:1990 ([age] yo M)Acc No.[id number]:09/18/2024 Patient:?Sadiq Raymondan :?Lisa Siddiqui DMDDOB:1990???Age:33 Y ???Sex:MaleDate:09/18/2024Phone:[phone]:[address] [place], [place] [id number] Subjective: * Chief Complaints: * N P Comp Exam Billing Information: * Procedure Codes: * Electronic signature of Lisa Siddiqui DMD on 01/30/2025 at 02:04 PM ESTSign off status: Pending * Provider: Anneliese Siddiqui DMD Date: 0 09/18/2024 Generated for Printing/Faxing/eTransmitting on:?01/30/2025 02:04 PM EST
--- OUTSIDE RECORDS SUMMARY | 2025-01-30 14:04 | XMS_ITS | Patient Health Record ---
Author Organization [facility] Address [address] [place], [place] [id number] Care Team Providers Care Store Management Trainee Name Role Phone Lisa Siddiqui Unavailable [phone] Reason For Referral No Information Plan Of Treatment No Information Insurance Providers Payer Name Payer Address Payer Phone Subscriber Number Group Number Insured Name Patient Relationship to Insured Coverage Start Date Coverage End Date [facility] [employer] [facility] [address] [place] [address] [id number] Kelly Parmarelf - patient is the [id number] 2024DMedicaid C after erihealthDentaquestPO [address] [place], [place] [id number], Bryan Self - patient is the [id number] 2024
--- OUTSIDE RECORDS SUMMARY | 2025-01-30 14:04 | XMS_ITS | Clinical Summary ---
Author Organization [facility] Address [address] [place] [id number] Care Team Providers Care Hide Worker Name Role Phone Unavailable Primary Care Provider Unavailabl e Allergies No known active allergies Medications MedicationSigDispense QuantityRefillsLast FilledStart DateEnd DateStatus atorvastatin (LIPITOR) 20 mg tablet Take 20 mg by mouth once daily.10/05/2020ctive buPROPion XL (WELLBUTRIN XL) 150 mg 24 hr tablet Take 150 mg by mouth once daily.06/24/2021ctive FLUoxetine (PROZAC) 40 mg capsule Take 40 mg by mouth once daily.06/24/2021ctive insulin detemir U-100 (LEVEMIR) 100 unit/mL (3 mL) injection pen Insulin Detemir U-100 (Levemir Flextouch U-100 Insuln) 100 unit/mL (3 mL) Insulin Pen Active 35 UNITS SUBCUT Daily 0 October 09, 2020 12:11pm10/09/2020 Active ketoconazole (NIZORAL) 2 % cream APPLY TO AFFECTED AREA 3 TIMES A DAY FOR 7 DAYS07/26/2021ctive lisinopril (ZESTRIL, PRINIVIL) 20 mg tablet Take 20 mg by mouth once daily.10/05/2020ctive pantoprazole DR (PROTONIX) 40 mg tablet Take 40 mg by mouth once daily.05/31/2021ctive tiZANidine (ZANAFLEX) 4 mg tablet Take 4 mg by mouth once daily as needed for pain.05/31/2021ctive warfarin (COUMADIN) 5 mg tablet Take 1 tablet by mouth once daily. 3 tablet 08/29/2021ctive LEVEMIR FLEXTOUCH U-100 INSULIN 100 unit/mL (3 mL) injection pen Inject 30 Units subcutaneously once daily. 9 mL 08/29/2021ctive metFORMIN ER (GLUCOPHAGE XR) 500 mg 24 hr tablet Take 2 tablets by mouth twice daily. 60 tablet 08/29/2021ctive warfarin (COUMADIN) 7.5 mg tablet TAKE 1 TO 1 & 1/2 TABLETS BY MOUTH DAILY RHQHQHHC44/28/2022ctive Active Problems ProblemNoted DateDiagnosed DateNicotine use disorder, F17.ulmonary rmpnicfh33/17/2022 Assessment & Plan (08/28/2021 2:40 PM EDT): 08/21 CT bilateral segmental and subsegmental PE, ECHO w no RV strain Transitioned to Lovenox given weight - peak anti Xa therapeutic PLAN: - Continue therapeutic Lovenox - Consider repeat CT at some point --- per CT read: UNDERLYING AREA OF EARLY INFARCTION IN THE RIGHT LOWER LOBE IS NOT EXCLUDED. ??NODULE OF DIFFERENT ETIOLOGY IS NOT EXCLUDED WELL. ??CT FOLLOW-UP IS RECOMMENDED. INDETERMINATE HETEROGENEOUS DENSITIES IN BILATERAL RIBS. ??CLINICAL CORRELATION IS RECOMMENDED. ??FURTHER EVALUATION BY BONE SCAN CAN BE PERFORMED [...] THE RIGHT LOWER LOBE IS NOT EXCLUDED. ??NODULE OF DIFFERENT ETIOLOGY IS NOT EXCLUDED WELL. ??CT FOLLOW-UP IS RECOMMENDED. INDETERMINATE HETEROGENEOUS DENSITIES IN BILATERAL RIBS. ??CLINICAL CORRELATION IS RECOMMENDED. ??FURTHER EVALUATION BY BONE SCAN CAN BE PERFORMED [...] THE RIGHT LOWER LOBE IS NOT EXCLUDED. ??NODULE OF DIFFERENT ETIOLOGY IS NOT EXCLUDED WELL. ??CT FOLLOW-UP IS RECOMMENDED. INDETERMINATE HETEROGENEOUS DENSITIES IN BILATERAL RIBS. ??CLINICAL CORRELATION IS RECOMMENDED. ??FURTHER EVALUATION BY BONE SCAN CAN BE PERFORMED IF CLINICALLY INDICATED. Assessment & Plan (08/25/2021 1:11 PM EDT): Assessment: bilateral segmental and subsegmental PE's seen on CT scan 08/21. No RV strain echo - EF 57% Remains on vent, therapeutic on lovenox PLAN: -- given weight, transitioned IV heparin to therapeutic Lovenox following anti-Xa -- consider repeat CT at some point --- per CT read: UNDERLYING AREA OF EARLY INFARCTION IN THE RIGHT LOWER LOBE IS NOT EXCLUDED. ??NODULE OF DIFFERENT ETIOLOGY IS NOT EXCLUDED WELL. ??CT FOLLOW-UP IS RECOMMENDED. INDETERMINATE HETEROGENEOUS DENSITIES IN BILATERAL RIBS. ??CLINICAL CORRELATION IS RECOMMENDED. ??FURTHER EVALUATION BY BONE SCAN CAN BE PERFORMED IF CLINICALLY INDICATED. Assessment & Plan (08/23/2021 1:26 PM EDT): Assessment: bilateral segmental and subsegmental PE's seen on CT scan 08/21. No RV strain echo - EF 57% Remains on vent, therapeutic on lovenox PLAN: -- given weight, transitioned IV heparin to therapeutic Lovenox following anti-Xa -- consider repeat CT at some point --- per CT read: UNDERLYING AREA OF EARLY INFARCTION IN THE RIGHT LOWER LOBE IS NOT EXCLUDED. ??NODULE OF DIFFERENT ETIOLOGY IS NOT EXCLUDED WELL. ??CT FOLLOW-UP IS RECOMMENDED. INDETERMINATE HETEROGENEOUS DENSITIES IN BILATERAL RIBS. ??CLINICAL CORRELATION IS RECOMMENDED. ??FURTHER EVALUATION BY BONE SCAN CAN BE PERFORMED IF CLINICALLY INDICATED. Assessment & Plan (08/22/2021 11:49 AM EDT): Assessment: bilateral segmental and subsegmental PE's seen on CT scan 08/21. No RV strain PLAN: -- given weight, will transition IV heparin to therapeutic Lovenox with anti-Xa 4 hours after firstdose -- echo -- consider repeat CT at some pont --- per CT read: UNDERLYING AREA OF EARLY INFARCTION IN THE RIGHT LOWER LOBE IS NOT EXCLUDED. ??NODULE OF DIFFERENT ETIOLOGY IS NOT EXCLUDED WELL. ??CT FOLLOW-UP IS RECOMMENDED. INDETERMINATE HETEROGENEOUS DENSITIES IN BILATERAL RIBS. ??CLINICAL CORRELATION IS RECOMMENDED. ??FURTHER EVALUATION BY BONE SCAN CAN BE PERFORMED IF CLINICALLY INDICATED. Fever08/22/2021 Assessment & Plan (08/28/2021 4:58 PM EDT): [...] -- f/u blood and resp cultures Electrolyte qbjeunlxx58/16/2022 Assessment & Plan (08/28/2021 4:58 PM EDT): [...] Assessment: hypophosphatemia PLAN: -- replaced Mild protein-calorie addyosnhvabm31/15/2022 Assessment & Plan (08/28/2021 4:55 PM EDT): [...] intubated, will need corpak for TF Acute pain08/18/2021 Assessment & Plan (08/28/2021 5:00 PM EDT): [...] percocet and prn fentanyl Acute postoperative respiratory anzintjyedfcp81/10/2022 Assessment & Plan (08/28/2021 5:00 PM EDT): [...] PM EDT): Was intubated and sedated since OR on 08/13, then takeback on 08/15-->extubated [...] Assessment: Has remained intubated and sedated since OR on 08/13, now s/p takeback on [...] -F/u urology recs regarding WTE postop Golden ufksrrdy08/09/2022 Assessment & Plan (08/28/2021 4:57 PM EDT): [...] Assessment & Plan (08/23/2021 1:24 PM EDT): 8 S/p I&D, testicular degloving 08/14 vanco/Zosyn/Clinda changed to Linezolid and Merrem for ongoing fevers and hypotension 08/15 re-op with urology for further I&D 08/19 s/p debridement, closure and creation of thigh pouch PLAN: - Continue Linezolid/Merrem 08/14 - 08/27 - BID WTD dressings - f/u urology recs Assessment & Plan (08/22/2021 11:46 AM EDT): 08/13 S/p I&D, testicular degloving 08/14 vanco/Zosyn/Clinda changed to Linezolid and Merrem for ongoing fevers and hypotension 08/15 re-op with urology for further I&D 08/19 s/p debridement, closure and creation of thigh pouch PLAN: - Continue Linezolid/Merrem 08/14 - 08/27 - BID WTD dressings - f/u urology recs Assessment & Plan (08/21/2021 9:08 AM EDT): 8 S/p I&D, testicular degloving 08/14 vanco/Zosyn/Clinda changed to Linezolid and Merrem for ongoing fevers and hypotension 08/15 re-op with urology for further I&D 08/19 s/p debridement, closure and creation of thigh pouch PLAN: - Continue Linezolid/Merrem 08/14 - 08/27 - BID WTD dressings - f/u urology recs Assessment & Plan (08/20/2021 11:31 AM EDT): /8 S/p I&D, testicular degloving [...] I&D. Vanco/Zosyn/Clinda changed o/n to Linezolid and Merremfor ongoing fevers and hypotension. PLAN: - Continue Linezolid/Merrem - BID WTD dressings Assessment & Plan (08/16/2021 5:38 PM EDT): Assessment: s/p I&D, testicular degloving 08/13 re-op 08/15 with urology for further I&D. Vanco/Zosyn/Clinda changed o/n to Linezolid and Merremfor ongoing fevers and hypotension. PLAN: - Continue [...] keep intubated and sedated until after this isdone Depressive vvutkopt93/09/2022 Assessment & Plan (08/28/2021 4:59 PM EDT): [...] PLAN: Resume when able to take PO COVID08/14/2021 Assessment & Plan (08/28/2021 5:00 PM EDT): [...] symptoms on presentation PLAN: - Decadron started - - last ID recs 08/15 Assessment & [...] consult Contact with and (suspected) exposure to covid-1902Acute pancreatitis 1Diabetes afihsmhc79/04/2021 Assessment & Plan (08/28/2021 4:59 PM EDT): [...] meds when able Personal history of nicotine oqslriqfqp67/04/2021 Assessment & Plan (08/28/2021 4:53 PM EDT): [...] ppd unknown duration PLAN: Encourage cessation Morbid anlflkc8310/09/2020 Assessment & Plan (08/26/2021 1:37 PM EDT): [...] if unable to wean PEEP Resolved Problems ProblemNoted DateDiagnosed DateResolved DateOther chest pain/ Assessment & Plan (08/27/2021 5:57 PM EDT): [...] enzymes unremarkable - Resolved with IV fentanyl Umbubetetgs82/10/202206/ Assessment & Plan (08/15/2021 12:40 PM EDT): Assessment: 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 S/p 750cc albumin with good response PLAN: -Fluid bolus prn -Consider pressors if stops responding to fluid Hestwtmokgsdaljbekvk50/09/202206/ Assessment & Plan (08/25/2021 1:10 PM EDT): [...] while on propofol gtt Obstructive sleep apnea Assessment & Plan (08/26/2021 1:11 PM EDT): [...] CPAP CPAP at night Social History Tobacco UseTypesPacks/DayYears UsedDateSmoking Tobacco: Every DayCigarettes Alcohol UseStandard Drinks/WeekCommentsNever0 (1 standard drink = 0.6 oz pure alcohol)Area Deprivation IndexAnswerDate RecordedNational Score (1-100), lower number is lower uceh617204/05/2022State Score (1-10), lower number is lower risk Not on file04/05/2022ata from: https://www.neighborhoodatlas.[facility].edu/. Last address used for xykrvxfjtrc[address] [facility]04/05/2022Sex and Gender InformationValueDate RecordedSex Assigned at BirthNot on fileLegal QwsZkfm9508/13/2021 3:07 PM EDT Gender IdentityNot on fileSexual OrientationNot on file Last Filed Vital Signs Vital SignReadingTime TakenCommentsBlood Nbpyvvjs703/68008/29/2021 7:49 PM EDT Ocryu95481/24/2022 7:49 PM EFFFofmzzckvqy73.9 ??C (98.5 ??F)08/29/2021 7:49 PM EDTRespiratory Llbn862908/29/2021 7:49 PM EDTOxygen Lakhmqnonc57%08/29/2021 7:49 PM EDTInhaled Oxygen Concentration--Eznwdp658.5 kg (384 lb 11.2 oz)08/29/2021 5:54 PM ACZYfjfpo410.5 cm (6' 3 )08/13/2021 3:39 PM EDTBody Mass Index48.08 08/13/2021 3:39 PM EDT Plan of Treatment Health MaintenanceDue DateLast DoneCommentsAnxiety Jenlhydul55/08/2007Depression Hixlgfjeq92/08/2007HIV Iqiqrqpkr33/08/2007Hepatitis C Ideswsfbf01/08/2007 Hepatitis B Vaccine (1 of 3 - 19+ 3-dose series)12/14/2007HPV Vaccine (1 - 3- dose SCDM series)12/14/2015DTaP,Tdap,Td Vaccine (7 - Td or Tdap)03/16/2016 03/16/2006, 10/28/1994, 06/24/1990, Additional history existsLipid Screening 4Covid-19 Vaccine (1 - 2024- season)2024Influenza Vaccine (#1) 2024 Insurance
--- OUTSIDE RECORDS SUMMARY | 2025-01-30 14:04 | XMS_ITS | Patient Health Record ---
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 Name Role Phone Shruthi Carrero Primary Care Provider Danielle Jatinder Unavailable [phone] Allergies No Known Allergies Results Component Value Reference Range Notes LIPID PROFILE Reviewed date:10/09/2024 09:37:21 AM Interpretation: Performing Lab: Notes/Report: [facility] , Triglycerides 78 <=150 mg/dL Wyfnxbockce987<=200 mg/dLHDL Bowxeboegsn2121-84 mg/dL > or =60 mg/dl - LOW CARDIOVASCULAR RISK <40 mg/dl - HIGH CARDIOVASCULAR RISK LDL Cholesterol Hemofdmxig004.4 160-189 mg/dl HIGH >190 mg/dl VERY HIGH <100 mg/dl OPTIMAL 130-159 mg/dl BORDERLINE HIGH 100-129 mg/dl NEAR OR ABOVE OPTIMAL VLDL SRLPTQBFWEQ86.6Chol HDL Ratio3.7 4.4 - 7.1 AVERAGE RISK 3.3 - 4.4 LOW RISK >11.0 HIGH RISK 7.1 - 11.0 MODERATE RISK Performing Lab:see noteML - [facility] LBTestosterone Reviewed date:04/03/2024 04:51:02 PM Interpretation: Performing Lab: Notes/Report: [facility] ,Iqmzliqttobk916774-573 ng/dL [id number]. Adult male reference interval is based on a population of old. mike Prado.al. JCEM 2017,102;6106-4311. PMID: Part Time Flexible Clerk: Evan Sierra PhD, Phone: [phone] healthy nonobese males (BMI <30) between 19 and 39 years [address] [place], [place] [id number] Performed at: [facility] LB[facility] Reviewed date:07/13/2024 11:56:24 AM Interpretation: Performing Lab: Notes/Report: [facility] ,Cwnjonpqkdqa707585-220 ng/dL [id number]. Performed at: [facility] Adult male reference interval is based on a population of old. Eve, et.al. EM 2017,102;9351-9935. PMID: [address], [place] [id number] Part Time Flexible Clerk: Evan Sierra PhD, Phone: [phone] healthy nonobese males (BMI <30) between 19 and 39 years Performing Lab:see [facility] LBTestosterone Reviewed date:10/09/2024 09:36:32 AM Interpretation: Performing Lab: Notes/Report: [facility] ,Bjqywjrzogrs242409-817 ng/dL [id number]. old. Eve, et.al. JCEM 2017,102;6980-6842. PMID: Adult male reference interval is based on a population of healthy nonobese males (BMI <30) between 19 and 39 years Part Time Flexible Clerk: Evan Sierra PhD, Phone: [phone] Performed at: [facility] [address], [place] [id number] Performing Lab:see [facility] LBGLYCOHEMOGLOBIN A1C Reviewed date:04/03/2024 04:51:02 PM Interpretation: Performing Lab: Notes/Report: [facility] ,Glycohemoglobin A1C6.24.5-6.2 % ACTION SUGGESTED ADA RECOMMENDED LIMIT 4.0 - 6.0 ADA THERAPEUTIC TARGET < 7.0 > 7.0 Estimated Average Sjdlmrq404Srqqkyhmjh Lab:see note - [facility] LB GLYCOHEMOGLOBIN A1C Reviewed date:10/09/2024 09:37:21 AM Interpretation: Performing Lab: Notes/Report: [facility] ,Glycohemoglobin A1C5.84.5-6.2 % ADA RECOMMENDED LIMIT 4.0 - 6.0 > 7.0 ACTION SUGGESTED ADA THERAPEUTIC TARGET < 7.0 Estimated Average Eujfcre915Bhfsmozyfc Lab:see noteML - [facility] LB GLYCOHEMOGLOBIN A1C Reviewed date:07/06/2024 03:47:42 PM Interpretation: Performing Lab: Notes/Report: [facility] ,Glycohemoglobin A1C6.04.5-6.2 % > 7.0 ACTION SUGGESTED ADA RECOMMENDED LIMIT 4.0 - 6.0 ADA THERAPEUTIC TARGET < 7.0 Estimated Average Qiitcdv669Oppgxvhgmd Lab:see noteML - [facility] LB Reason For Referral Reason hearing testing Diagnosis 1 Change in hearing (H 91.90) Referral Organization [facility] Referring Provider First Name Shruthi Referring Provider Last Name [facility] Referring Provider [facility] Referred Provider Ml Walsh Referred Provider Specialty Otolaryngolo gy Referral Priority Routine Diagnosis 1 Hearing loss (H91.90 ) Referral Organization [facility] Referring Provider First Name Shruthi Referring Provider Last Name [facility] Referring Provider [facility] Referred Provider Specialty Otolaryngolo gy Referral Priority Routine Medications Medication SIG (Take, Route, Frequency, Duration) Notes Start Date End Date Status Sure Comfort Pen Barton 31G X 5 MM Use 1 pen needles for insulin TID DX E11.9; Duration: 30 days ActiveTrulicity 1.5 MG/0.5MLas directed Subcutaneous weekly; Duration: 28 days ActiveAtorvastatin Calcium 20 MGTAKE 1 TABLET BY MOUTH EVERY DAY FOR 30 DAYS; Duration: 90Not-TakingAtomoxetine HCl 60 MG1 capsule in the morning Orally Once a day; Duration: 30 days5ActiveOneTouch Ultra -USE DIRECTED DAILY; Duration: 90ActiveStrattera 40 MG1 capsule in the morning Orally Once a day; Duration: 30 days5ActiveImipramine Pamoate 100 MG2 capsules Oral at HS; Duration: 90 daysActiveLantus SoloStar 100 UNIT/ML50 units Subcutaneous Twice dailyNot-TakingmetFORMIN HCl 1000 MGTAKE 1 TABLET BY MOUTH TWICE A DAY FOR 30 DAYS; Duration: 90Not-TakingTestosterone Cypionate 200 MG/MLINJECT 0.5 MILLILITERS INTRAMUSCULARLY ONCE A WEEK; Duration: 5ActiveBD Syringe/Needle 23G X 1 3 MLweekly; Duration: 30 days4Active Social History Tobacco Use: Social History Observation Description Date Details (start date - stop date) Current Smoker NA - NA Tobacco Use/Smoking Question Answer Notes Patient is a current smoker How often do you smoke cigarettes?every dayAlcohol Screen (Audit-C) Question Answer Notes Did you have a drink containing alcohol in the p ast year? No Rntzhx7ZnunhimzkdmrntDcfgrhjvYJMTU-I (Standard) Question Answer Notes Did you have a drink containing alcohol in the p ast year? No Gdpnzq3LbqwvbwjwqdkjoBbvhftcz Problems Problem Type SNOMED Code ICD Code Onset Dates Problem Status W/U Status Risk Notes Problem Testicular hypofunction (531217141) Testi cular hypofunction (E29.1) ActiveconfirmedProblemOverweight (527275650)Overweight (E66.3)Activeconfirmed ProblemAdjustment disorder with depressed mood (12130846)Adjustment disorder with depressed mood (F43.21)ActiveconfirmedProblemPneumonia (984433922) Pneumonia, unspecified organism (J18.9)ActiveconfirmedProblemHormone abnormality (55420897)Abnormal level of hormones in specimens from other organs, systems and tissues (R89.1)ActiveconfirmedProblemDeath of relative (557483775)Disappearance and of family member (Z63.4)ActiveconfirmedProblemFatigue (39968339) Fatigue (R53.83)ActiveconfirmedProblemHyperlipidemia (34155030)Hyperlipidemia (E78.5)ActiveconfirmedProblemHypertension (38669124)HTN (hypertension) (I10) ActiveconfirmedProblemAnemia (060796870)Anemia (D64.9)ActiveconfirmedProblem Depression (028573577)Depression (F32.9)ActiveconfirmedProblemObstructive sleep apnea (52526132)Obstructive sleep apnea (G47.33)ActiveconfirmedProblemUrinary incontinence (219288539)Urinary incontinence (R32)ActiveconfirmedProblem Esophageal reflux (235557628)Esophageal reflux (K21.9)ActiveconfirmedProblem Hearing loss (96492933)Hearing loss (H91.90)ActiveconfirmedProblemProlapsed lumbar intervertebral disc (821494828)Lumbar disc herniation (M51.26)Active confirmedProblemTobacco user (537553006)Nicotine addiction (F17.200)Active confirmedProblemHistory of pulmonary embolus (783542081)History of pulmonary embolism (Z86.711)ActiveconfirmedProblemHemorrhoids (85305599)Hemorrhoids (K64.9)ActiveconfirmedProblemLumbar radiculopathy (534582759)Left lumbar radiculopathy (M54.16)ActiveconfirmedProblemSuicidal ideation (3644037)Suicidal ideation (R45.851)ActiveconfirmedProblemSteatosis of liver (334491299)Hepatic steatosis (K76.0)ActiveconfirmedProblemSuperficial thrombophlebitis (1666705) Superficial thrombophlebitis (I80.9)ActiveconfirmedProblemHearing loss (37677292)Change in hearing (H91.90)ActiveconfirmedProblemLumbar radiculopathy (247672857)Lumbar radiculopathy, acute (M54.16)ActiveconfirmedProblemHistory of vasectomy (455564580)H/O vasectomy (Z98.52)ActiveconfirmedProblemAttention deficit hyperactivity disorder (515442708)Adult ADHD (F90.9)Activeconfirmed ProblemPrimary hypertension (71953384)Primary hypertension (I10)Activeconfirmed ProblemEncounter for observed medication taking (Z02.89)ActiveconfirmedProblem Obese class I (finding) (604423473773099)Class 1 obesity (E66.9)Activeconfirmed ProblemDiabetes mellitus (57499521)Diabetes mellitus (E11.9)Activeconfirmed ProblemHeadache (69484991)Headache, unspecified (R51.9)ActiveconfirmedProblemLow back pain (finding) (464271807)Other low back pain (M54.59)Activeconfirmed Vital Signs Blood pressure diastolic 78 mm Hg 11/10/2024 Llngsg06 in11/10/2024lood pressure sfxeamqu173 mm Hg11/10/20247448Rhzjgb499 lbs 10/16/2024BMI34.15 kg/m210/16/2024 Encounters Encounter Location Date Provider Diagnosis [facility] [address] [place] [address] 02/01/2024 Shruthi Carrero Depression F32.9 and Diabetes mellitus E11.9 [facility] [address] [place] [address] 05/16/2024 Shurthi Carrero Depression F32.9 ; Testicular hypofunction E29.1 and Class 2 obesity E66.9 [facility] [address] [place] [address] 07/17/2024 Shruthi Carrero Change in hearing H91.90 ; Adult ADHD F90.9 ; Diabetes mellitus E11.9 ; Hyperlipidemia E78.5 and Testicular hypofunction E29.1 [facility] [address] [place] [address] 10/16/2024 Shruthi Carrero Adult ADHD F90.9 ; Diabetes mellitus E11.9 ; Class 1 obesity E66.9 and Hyperlipidemia E78.5 [facility] [address] [facility] [place] [address] 11/10/2024 Jatinder Hoy [facility] [place] [address] 03/13/2024Pamela CramerDiabetes mellitus E11.9 and Testicular hypofunction E29.1 [facility] [place] [address] 04/03/2024Pamela CramerTesticular hypofunction E29.1[facility] [place] [address]/Pamela Alise [facility] [place] [address] 05/08/2024[facility] [place] [address]/[facility] [place] [address]/Pamela CramerDiabetes mellitus E11.9[facility] [address] [facility] [place] [address] 07/06/2024Pamela [facility] [facility] [place] [address]/04/2024Pamela CramerTesticular hypofunction E29.1 [facility] [facility] [place] [address] 07/14/2024[facility]ela [facility]BV[facility] [facility] [address]/Pamela CramerHearing loss H91.90[facility] [facility] [place] [address]/Pamela CramerAdult ADHD F90.9BSt. [facility] [facility] [place] [address]/03/2024Pamela CramerTesticular hypofunction E29.1 ; Hyperlipidemia E78.5 and Diabetes mellitus E11.9B[facility] [facility] [place] [address]/06/2024Pamela [facility] [facility] [place] [address]/01/2025[facility] [facility] [place] [address] 11/01/2024Pamela [facility] [facility] [place] [address]/07/2024Pamela [facility] [address] [facility] [place] [address]/12/2024Pamela CramerTesticular hypofunction E29.1 and Diabetes mellitus E11.9 Assessments Encounter Date Diagnosis (ICD Code) Assessment Notes Treatment Notes Treatment Clinical Notes Section Notes 02/01/2024 Depression (ICD-10 - F32.9) 02/01/2024iabetes mellitus (ICD-10 - E11.9) unable to find VIctoza could try rx for truilcity? ozempic samples given fu 3 months, labs due Isaac try setting alarm on phone for BID dosing, be consistent with meds!! 05/16/2024Testicular hypofunction (ICD-10 - E29.1) last test check WNL continue test, due for labs 06/2905/16/2024Depression (ICD-10 - F32.9) mood has improved does take imipramine 07/17/2024hange in hearing (ICD-10 - H91.90)07/17/2024dult ADHD (ICD-10 - F90.9) trial of Straterra pt states on Wellbutrin in past and SE, didnt like it avoid controlled meds 03/13/2024Testicular hypofunction (ICD-10 - E29.1)03/13/2024Diabetes mellitus (ICD-10 - E11.9)04/03/2024Testicular hypofunction (ICD-10 - E29.1)07/04/2024 Diabetes mellitus (ICD-10 - E11.9)07/07/2024Testicular hypofunction (ICD-10 - E29.1)07/18/2024Hearing loss (ICD-10 - H91.90)07/20/2024dult ADHD (ICD-10 - F90.9)10/06/2024Testicular hypofunction (ICD-10 - E29.1)10/06/2024Hyperlipidemia (ICD-10 - E78.5)10/16/2024dult ADHD (ICD-10 - F90.9) straterra has helped some, could be better no SE thats noticed bp elevated today, did drink red bull before came in, doesnt drink those much BP check 10/16/2024Diabetes mellitus (ICD-10 - E11.9)BS at goal on just trulicity 01/15/2025Testicular hypofunction (ICD-10 - E29.1)01/15/2025Diabetes mellitus (ICD-10 - E11.9)10/16/2024lass 1 obesity (ICD-10 - E66.9) working on diet continues to lose slowly on Trulicity more active 10/06/2024Diabetes mellitus (ICD-10 - E11.9)07/17/2024Diabetes mellitus (ICD-10 - E11.9) patient stopped insulin and metformin on own just taking trlissaity lost another 27 lbs in last 3 months A1c 6 continue working on diet, exercise monitor BS Patient educated on Diabetic diet... Reviewed Hypoglycemia / Hyperglycemia action plan: Instructed to call office if blood sugar above 350 or below 65 consecutively. 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 5Class 2 obesity (ICD-10 - E66.9) continue faby has lost about 100 lbs in last 2 years feeling better continue work on diet, exercise 10/16/2024Hyperlipidemia (ICD-10 - E78.5) cholesterol looks good patient stopped statin on his own 07/17/2024Hyperlipidemia (ICD-10 - E78.5) stopped taking statin no SE, just stopped will recheck lipids 07/17/2024Testicular hypofunction (ICD-10 - E29.1) test WNL continue test repeat labs 07/17/2024Otherget eyes checked Plan Of Treatment Pending Test Test Name Order Date Holter Test 07/17/2022 CMP (COMPLETE METABOLIC PANEL) 4 CMP (COMPLETE METABOLIC PANEL) 4 HEMOGLOBIN A1C (GLYCO) 03/13/2024 HEMOGLOBIN A1C (GLYCO) 07/15/2023 HEMOGLOBIN A1C (GLYCO) 09/23/2023 HEMOGLOBIN A1C (GLYCO) 01/15/2025 INSULIN, TOTAL 07/15/2023 LIPID PANEL (CHOL/TRIG/HDL/LDL) 07/15/19 24 LIPID PANEL (CHOL/TRIG/HDL/LDL) 09/23/19 24 CBC WITH DIFF (EXP 01/2025) 07/15/2023 PSA, PROSTATE-SPECIFIC ANTIGEN 4 TESTOSTERONE, TOTAL 07/15/2023 TESTOSTERONE, TOTAL 09/23/2023 URIC ACID 07/15/2023 XR Lumbar Spine (2-3 views) * 07/15/2023 TESTOSTERONE 07/07/2024 TESTOSTERONE 10/06/2024 THYROID PANEL (T4/TSH/FREE T3) 4 ECHOCARDIO M/2D COMPLETE 07/17/2022 Testosterone 03/13/2024 Testosterone 01/15/2025 Insurance Providers Payer Name Payer Address Payer Phone Subscriber Number Group Number Insured Name Patient Relationship to Insured Coverage Start Date Coverage End Date [employer] [place] [employer] [address] [place] [address] [id number] Agata SadiqToyelf - patient is the [id number] 2023 Medications Administered Medication Instructions Date of Administration Dosage Notes Kenalog-40 mgKetorolac Lysmxhhakzwd93/10/457425 mgOrphenadrine Citrate mgTestosterone Qaxqqvqra80/10/54776.5 mLTestosterone Cypionate .5 mLTestosterone Zpimvwoso98/03/20240.5 mLTestosterone Cypionate .5 mL Medical (General) History Medical History History [...] of knee 924.11 Surgical History Surgery Date(Month/Year) Knee Arthroscopy [place] Teeth ExtractionVasectomyWound DebridementHospitalization History Reason Date(Month/Year) [facility] [place]/ Back Pain Mental Tyyiwx76/2023Lumbar Back Pain/ Herniated Disc06/2022
--- OUTSIDE RECORDS SUMMARY | 2025-01-30 14:08 | XMS_ITS | CCD ---
Author Organization [facility] Care Team Providers Care Tube And Manifold Builder Name Role Phone Jackelin Hale Primary Care Provider MD Patricio Chakraborty Attending Provider NONE, XXXX Primary Care Physician Unavailab le NO FAMILY, PHYSICIAN Primary Care Provider Unava ilable MD Oliver Diehl Jr Emergency Provider MD Segun Cho Emergency Provider Bailey Vanegas Unavailable Shruthi Billingsley Unavailable Unavailable Primary Care Provider UnavailSHRUTHI Beatty Primary Care Physician [phone] NO FAMILY, PHYSICIAN Primary Care Provider Unava ilMD Dell Brooks Admit Provider [phone] MD Dell Kmi Attending Provider NO FAMILY, PHYSICIAN Primary Care [...] Unavailable JILLIAN .CHARLES Consulting Unavailclaudia chacko [facility], SHRUTHI Primary Care Unavailable ELIUD HERNANDEZ Consulting Unavailable FAWWAD, WRIGHT H Admitting Unavailable AICHHOLZ, RESEARCH SUPPORT SPECIALIST JACKELIN Primary Care Unavailable FAWWAD, WRIGHT H Attending Unavailable AICHOLZ, RESEARCH SUPPORT SPECIALIST JACKELIN Primary Care Unavailable SHURTHI DÍAZ Attending Unavailable ARJUN, SHRUTHI Admitting Unavailable FAWWAD, WRIGHT H Attending Unavailable FAWWAD, WRIGHT H Admitting Unavailable AICHHOLZ, RESEARCH SUPPORT SPECIALIST JACKELIN Primary Care Unavailable FAWWAD, WRIGHT H [...] ., DR GOETZ Admitting Unavailable AICHHOLZ, NOE JACKELIN Primary Care Unavailable ARJUN, SHRUTHI Attending Unavailable [...] CHAKRABORTY, Patricio Vidales Attending Unavailable Allergies Allergy ClassificationReported Allergen(s)Allergy TypeDate of OnsetReaction(s) Facility (1 source)No Known Medication Allergies; Translations: [No Known Medication Allergies]Propensity to adverse reactions (disorder)[facility] Medications Current Medications MedicationDrug Class(es)DatesSig (Normalized)Sig (Original)acetaminophen 325 mg / oxyCODONE hydrochloride 5 mg oral tablet (5 sources)Opioid AgonistStart: 08-10-2021 End: 20-94-7991gjyu 1 tablet by mouth every four to six hoursOxycodone- Acetaminophen (Percocet) 5-325 mg tablet Active 1 - 2 TAB PO EVERY 4-6 HOURS 14 August 10, 2021 7:30pmStart: 07-31-2021 End: 62-32-2537szuw 1 tablet by mouth every six hoursOxycodone-Acetaminophen (Percocet) 5-325 mg tablet Active 1 - 2 TAB PO Every 6 hours 15 July 11:[id number] 200 actuat albuterol 0.09 mg/actuat metered dose inhaler (4 sources)beta2-Adrenergic AgonistStart: 82-64-5322sauw 2 puff(s) by inhalation four times daily as neededAlbuterol Sulfate HFA 108 (90 Base) MCG/ACT 2 puffs Inhalation qid prn Mar, ActiveStart: 05-45-9726bqelauccj Refills(s) 0 Start Date: 11/02/19 Status: OrderedAmitriptyline (1 source)Tricyclic AntidepressantStart: 35-01-1935vrsucjqitiawd Oral, Once a day (at bedtime), Refills(s) 0 Start Date: 12/15/21 Status: OrderedARIPiprazole 10 mg oral tablet (6 sources)Atypical AntipsychoticStart: 26-44-8568bukl 10 mg by mouth once daily Aripiprazole Active 10 MG PO Daily April 04, 2022 12:00amStart: 02-16-2022 End: 37-95-3725ctsuabfpqstb 5 mg Tab 30 tab(s), Refills(s) 0 Start Date: 02/16/22 Status: OrderedAzithromycin (2 sources)Macrolide AntimicrobialStart: 04-20-3343kdsopeehezrz 250 mg Tab Refills(s) 0 Start Date: 12/15/21 Status: OrderedStart: 76-33-3696Ktjaozgzt 250 MG 2 tablet on the first day, then 1 tablet daily for 4 days Orally Once a day for 5 day(s) Mar, Activebaclofen 10 mg oral tablet (1 source)gamma-Aminobutyric Acid-ergic AgonistStart: 29-48-9942mzdb 1 tablet by mouth three times daily as needed for painbaclofen 10 mg Tab 10 mg = 1 tab(s), Oral, TID, PRN Muscle pain, Refills(s) 0 Start Date: 07/13/22 Status: Lbfpzal70 hr buPROPion hydrochloride 450 mg extended release oral tablet (19 sources)AminoketoneStart: 96-67-4514yeqx 450 mg by mouth once daily in the morningBupropion Hcl Active 450 MG PO Every morning April 04, 2022 12:00amStart: 17-39-8308aakp 1 tablet by mouth every twenty-four hoursbuPROPion 300 mg XL /24 hrs mg tab(s), Oral, q24hr, Refills(s) 0 Start Date: 12/15/21 Status: OrderedStart: 62-24-2694qosu 1 tablet by mouth every twenty-four hours buPROPion 300 mg XL /24 hrs mg tab(s), Oral, q24hr, Refills(s) 0 Start Date: 12/15/21 Status: OrderedStart: 07-35-1495qrkd 1 mg by mouth twice dailybuPROPion 150 mg ER Tab mg tab(s), Oral, BID, Refills(s) 0 Start Date: 06/09/21 Status: OrderedStart: 92-11-2541soba 1 tablet by mouth once dailybuPROPion XL (WELLBUTRIN XL) 150 mg 24 hr tablet Take 150 mg by mouth once daily. 0 06/24/2021 ActiveStart: 10-07-2020 End: 69-88-1895Naizrkwpe Hcl (Wellbutrin Xl) 150 mg Tablet Extended Release 24 Hr Discontinued 300 MG PO Every morning October 06, 2020 11:00pm April 04, 2022 11:25ambuPROPion HCl ER (XL) ActiveComment on above:Take 150 mg by mouth once daily.desmopressin acetate 0.2 mg oral tablet (8 sources)Vasopressin Analog, Factor VIII ActivatorStart: 42-76-0440hvye 1 tablet by mouth at bedtimeDDAVP 0.2 mg oral tablet 0.2 mg = 1 tab(s), Oral, Bedtime, # 90 tab(s), Refills(s) 3, Pharmacy: [facility]/pharmacy #[id number], 190, cm, 06/11/22 8:47:00 EDT, Height/Length Dosing, 175, kg, 06/11/22 8:47:00 EDT,Weight Dosing Start Date: 07/08/22 Status: OrderedStart: 00-76-5173zvhk 2 tablets by mouth at bedtimeDDAVP 0.2 mg oral tablet 0.4 mg = 2 tab(s), Oral, Bedtime, # 180 tab(s), Refills(s) 2, Pharmacy: [facility]/pharmacy #[id number], 190, cm, 10/06/21 11:26:00 EDT, Height/Length Dosing, 175, kg, 10/06/21 11:26:00 EDT, Weight Dosing Start Date: 10/06/21 Status: OrderedStart: 76-20-6279hqia 1 tablet by mouth three times dailyDDAVP 0.2 mg oral tablet 0.2 mg = 1 tab(s), Oral, TID, # 90 tab(s), Refills(s) 2, Pharmacy: [facility]/pharmacy #[id number], 190, cm, 10/06/21 11:26:00 EDT, Height/Length Dosing, 175, kg, 10/06/21 11:26:00 EDT, Weight Dosing Start Date: 10/06/21 Status: OrderedStart: 40-48-2682qcnp 1 tablet by mouth once dailyDDAVP 0.2 mg oral tablet 0.2 mg = 1 tab(s), Oral, Daily, # 30 tab(s), Refills(s) 11, Pharmacy: [facility]/pharmacy #[id number], 190, cm, 06/09/21 13:52:00 EDT, Height/Length Dosing, 175, kg, 06/09/21 13:52:00 EDT, Weight Dosing Start Date: 06/09/21 Status: OrderedFLUoxetine 40 mg oral capsule (16 sources)Serotonin Reuptake InhibitorStart: 94-86-9337naql 80 mg by mouth once dailyFluoxetine Active 80 MG PO Daily April 04, 2022 12:00am Start: 93-34-0159wrwq 1 mg by mouth once dailyFLUoxetine 40 mg Cap mg cap(s), Oral, Daily, Refills(s) 0 Start Date: 06/09/21 Status: OrderedStart: 10-05-2020 take 1 capsule by mouth once dailyFluoxetine (Prozac) 20 mg capsule Active 20 MG PO Daily October 05, 2020 9:32pmStart: 10-05-2020 End: 93-21-3778osju 3 capsules by mouth once dailyFluoxetine (Prozac) 20 mg capsule Discontinued 60 MG PO Daily October 04, 2020 11:00pm March 11:25amComment on above:Take 40 mg by mouth once daily.Hyoscyamine (3 sources)Hyoscyamine Sulfate Activeimipramine pamoate 100 mg oral capsule (2 sources)Tricyclic AntidepressantStart: 11-23-2022 End: 81-72-1668sffecuurrq pamoate 100 mg oral capsule 200 mg = 2 cap(s), Oral, Once a day (at bedtime), pt is to take 200mg daily not bid., X 30 day(s), # 60 cap(s), Refills(s) 6, Pharmacy: [facility]/pharmacy #[id number], 190,cm, 11/23/22 11:45:00 EDT, Height/Length Dosing, 179.5, kg, 11/23/22 11:45:00 EDT, Weight Dosing Start Date: 11/23/22 Stop Date: 06/21/23 Status: Ordered3 ml insulin detemir 100 unt/ml pen injector (20 sources)Insulin AnalogStart: 16-89-0950Hsopymx Detemir U-100 (Levemir Flextouch U-100 Insuln) 100 unit/mL (3 mL) insulin pen Active 50 UNITS SUBCUT Twice daily morning & bedtime April 01, 2022 10:09pmStart: 49-76-3527Kioevjh SubCutaneous, Refills(s) 0 Start Date: 06/09/21 Status: OrderedStart: 10-09-2020 End: 88-22-8242uumeslu detemir U-100 (LEVEMIR) 100 unit/mL (3 mL) injection pen Insulin Detemir U-100 (Levemir Flextouch U-100 Insuln) 100 unit/mL (3 mL) Insulin Pen Active 35 UNITS SUBCUT Daily 0 October 09, 2020 12:11pm 0 10/09/2020 ActiveStart: 10-09-2020 End: 52-43-7674Mvwkkbk Detemir U-100 (Levemir Flextouch U-100 Insuln) 100 unit/mL (3 mL) Insulin Pen Active 35 UNITS SUBCUT Daily 0 October 09, 2020 12:11pmComment on above:Inject 30 Units subcutaneously once daily.Insulin Detemir U-100 (Levemir Flextouch U-100 Insuln) 100 unit/mL (3 mL) Insulin Pen Active 35 UNITS SUBCUT Daily 0 October 09, 2020 12:11pmmethylPREDNISolone 4 mg oral tablet (1 source)CorticosteroidMedrol 4 MG as directed Orally as directed Active nicotine 2 mg chewing gum (1 source)Cholinergic Nicotinic AgonistStart: 89-82-7962Dnfboxjx (Polacrilex) Active 2 MG BUCCAL Q2H 60 April 04, 2022 12:00ampantoprazole 40 mg delayed release oral tablet (18 sources)Proton Pump InhibitorStart: 70-92-9722szyf 1 mg by mouth once daily Pantoprazole [address] Tab mg tab(s), Oral, Daily, Refills(s) 0 Start Date: 06/09/21 Status: OrderedStart: 10-05-2020 End: 67-09-9510tzml 1 mg by mouth once dailyPantoprazole [address] Tab mg tab(s), Oral, Daily, Refills(s) 0 Start Date: 06/09/21 Status: OrderedPantoprazole Sodium ActiveComment on above:Take 40 mg by mouth once daily.solifenacin succinate 10 mg oral tablet (8 sources)Cholinergic Muscarinic AntagonistStart: 92-55-9279zsqy 1 tablet by mouth once dailyVesicare 10 mg Tab 10 mg = 1 tab(s), Oral, Daily, # 30 tab(s), Refills(s) 11, Pharmacy: [facility]/pharmacy #[id number], 190, cm, 12/15/21 14:21:00 EDT, Height/Length Dosing, 175, kg, 12/15/21 14:21:00 EDT, Weight Dosing Start Date: 12/15/21 Status: Orderedsulfamethoxazole 800 mg / trimethoprim 160 mg oral tablet (1 source)Dihydrofolate Reductase Inhibitor Antibacterial, Sulfonamide AntimicrobialStart: 07-13-2022 End: 58-16-0568Aiowcau D.S. 800 mg-160 mg Tab 160 mg, Oral, BID for 5 day(s), 10 tab(s), Refill(s) 0, [facility]/pharmacy#[id number], 193, cm, 07/11/22 20:16:00 EDT, Height/Length Dosing, 181.4, kg, 07/11/22 20:16:00 EDT, Weight Dosing Start Date: 07/13/22 Stop Date: 07/18/22 Status: OrderedSUMAtriptan 50 mg oral tablet (7 sources)Serotonin-1b and Serotonin-1d Receptor AgonistStart: 10-07-2020 End: 51-98-0838olti 1 tablet by mouth onceSumatriptan Succinate (Imitrex) 50 mg Tablet Active 50 MG PO Once Sage 2nd, 2021 5:33pmSUMAtriptan Succinate Active Testosterone (1 source)AndrogenStart: 60-62-5885Rrbyjclvuras Active 100 MG IM EVERY 2 WEEKS April 01, 2022 12:00am Takes every 2 weeks.First dose on 2022 Completed/Discontinued Medications MedicationDrug Class(es)DatesSig (Normalized)Sig (Original)atorvastatin 20 mg oral tablet (11 sources)HMG-CoA Reductase InhibitorStart: 11-02-2019 End: 75-07-4809ljfg 1 tablet by mouth once dailyAtorvastatin (Lipitor) 20 mg tablet Discontinued 20 MG PO Daily October 04, 2020 11:00pm April 01, 2022 9:17pmComment on above:Take 20 mg by mouth once daily.DULoxetine 30 mg delayed release oral capsule (7 sources)Serotonin and Norepinephrine Reuptake InhibitorStart: 10-05-2020 End: 05-61-1070Oksyagkxbf (Cymbalta) 30 mg capsule,delayed release(DR/EC) Discontinued MG PO October 05, 2020 9:32pm October 05, 2020 11:10pmDULoxetine HCl Activeempagliflozin 10 mg oral tablet (7 sources)Sodium-Glucose Cotransporter 2 InhibitorStart: 10-05-2020 End: 80-73-9292xrzi 1 tablet by mouth once dailyEmpagliflozin (Jardiance) 10 mg tablet Discontinued 10 MG PO Daily October 05, 2020 11:09pm October 09, 2020 12:21pmJardiance ActiveInsulin Glargine (Lantus U-100 Insulin) 100 unit/mL Cartridge (4 sources)Start: 10-06-2020 End: 21-97-2095cklibs 30 [IU] by subcutaneous injection once daily at bedtime Insulin Glargine (Lantus U-100 Insulin) 100 unit/mL Cartridge Discontinued 30 UNIT SUBCUT Daily at bedtime October 06, 2020 10:14pm October 09, 2020 12:21pm Start: 10-06-2020 End: 67-78-2686yiktnq 30 [IU] by subcutaneous injection once daily at bedtime Insulin Glargine (Lantus U-100 Insulin) 100 unit/mL Cartridge Discontinued 30 UNIT SUBCUT Daily at bedtime October 05, 2020 11:00pm October 09, 2020 11:21am ketoconazole 20 mg/ml topical cream (8 sources)Azole AntifungalStart: 60-93-6102hdbkhrfalscb (NIZORAL) 2 % cream APPLY TO AFFECTED AREA 3 TIMES A DAY FOR 7 DAYS 0 07/26/2021 ActiveStart: 10-05-2020 End: 46-97-4182Mbxwiusprnpj Active 1 APPLIC TOPICAL Daily October 05, 2020 11:09pmComment on above:APPLY TO AFFECTED AREA 3 TIMES A DAY FOR 7 DAYS lisinopril 20 mg oral tablet (20 sources)Angiotensin Converting Enzyme InhibitorStart: 25-11-5555rzjj 10 mg by mouth once dailyLisinopril Active 10 MG PO Daily October 04, 2020 11:00pm Start: 11-02-2019 End: 21-16-0629tofv 1 mg by mouth once dailylisinopril 20 mg Tab mg tab(s), Oral, Daily, Refills(s) 0 Start Date: 11/02/19 Status: OrderedLisinopril Active Comment on above:Take 20 mg by mouth once daily.24 hr metFORMIN hydrochloride 500 mg extended release oral tablet (20 sources)BiguanideStart: 38-08-5655wfzr 2 tablets by mouth twice daily metFORMIN ER (GLUCOPHAGE XR) 500 mg 24 hr tablet Take 2 tablets by mouth twice daily. 60 tablet 0 08/29/2021 ActiveStart: 83-24-9566igdk 1 mg by mouth twice dailymetformin 1000 mg oral tablet mg tab(s), Oral, BID, Refills(s) 0 Start Date: 11/02/19 Status: OrderedmetFORMIN HCl ER ActiveComment on above:Take 2 tablets by mouth twice daily.tiZANidine 4 mg oral tablet (11 sources)Central alpha-2 Adrenergic AgonistStart: 10-05-2020 End: 30-83-6291nogd 1 tablet by mouth once daily as needed for paintiZANidine (ZANAFLEX) 4 mg tablet Take 4 mg by mouth once daily as needed for pain. 0 05/31/2021 ActivetiZANidine HCl ActiveComment on above:Take 4 mg by mouth once daily as needed for pain.warfarin sodium 7.5 mg oral tablet (7 sources)Vitamin K AntagonistStart: 03-38-5122dsxo 1 tablet by mouth once dailywarfarin (COUMADIN) 7.5 mg tablet TAKE 1 TO 1 & 1/2 TABLETS BY MOUTH DAILY DIRECTED 0 09/02/2021 ActiveStart: 43-03-6068hppc 1 tablet by mouth once dailywarfarin (COUMADIN) 5 mg tablet Take 1 tablet by mouth once daily. 3 tablet 0 08/29/2021 ActiveComment on above:Take 1 tablet by mouth once daily.TAKE 1 TO 1 & 1/2 TABLETS BY MOUTH DAILY DIRECTED Problems Active Problems Problem ClassificationProblemDateDocumented DateEpisodic/ChronicBacterial infection; unspecified site (1 source)Personal history of Methicillin resistant Staphylococcus aureus infection; Translations: [PERS HX METHICILLIN RSIST STAPH INF]Onset: 05-26-2022 EpisodicComplications of surgical procedures or medical care (7 sources)Genitourinary tract hemorrhage; Translations: [Postprocedural hematoma of a genitourinary system organ or structure following a genitourinary system procedure]Onset: 318051-53-6417ZqqbxdswZgbiyvkv mellitus with complications (5 sources)Diabetic ketoacidosis; Translations: [Type 2 diabetes mellitus with ketoacidosis without coma]Onset: 344311-54-2517RegkxjhHmrzedud mellitus without complication (20 sources)Diabetes mellitus; Translations: [Type 2 diabetes mellitus without complications]Onset: 279197-37-6274MgpopyzDznmhizg mellitus without complication (9 sources)Glycosuria; Translations: [Glycosuria]Onset: 15-31-4089Enphxjtl Disorders of lipid metabolism (20 sources)Hypertriglyceridemia; Translations: [Pure hyperglyceridemia] 03-66-7913UbxjtldQ Codes: Fall (3 sources)Rwbk44-10-3551Nhpqufdowp disorders (10 sources)Gastroesophageal reflux disease; Translations: [Gastroesophageal reflux disease without esophagitis]Onset: 074629-30-9037GnyziewXewtdxhgz hypertension (10 sources)Hypertensive disorder; Translations: [Essential (primary) hypertension]Onset: 801446-09-5651VidrofrPoved of unknown origin (4 sources)Fever; Translations: [Fever, unspecified]Onset: EpisodicFluid and electrolyte disorders (4 sources)Electrolyte imbalance; Translations: [Other disorders of electrolyte and fluid balance, not elsewhere classified]Onset: 464767-00-8888Nspysdof Gastrointestinal hemorrhage (9 sources)Rectal dfxtjuvblo35-00-3284KmmbiplzRjsfuwmlpqmek symptoms and ill- defined conditions (20 sources)Intermittent urinary incontinence; Translations: [Nocturnal enuresis]Onset: 245687-95-6734UhjqxgvWftvjrlqpelfd symptoms and ill- defined conditions (18 sources)Incomplete emptying of bladder; Translations: [Urgent desire to urinate]Onset: 709769-21-2332DoejfutlFcndmzce; including migraine (3 sources)Headache; including migraine; Translations: [HEADACHE UNSPECIFIED] Onset: 13-72-2445Bebpkncuijyl conditions of male genital organs (4 sources)Golden's gangrene; 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]Onset: 835581-63-0833YkmptlsqAgjz disorders (20 sources)Depressive disorder; Translations: [Depression]Onset: 08-14-2021 14-09-1259AelamtvRuug disorders (2 sources)Mood disorders; Translations: [DEPRESSION UNSPECIFIED]Onset: 12-80-4853Czutuoc (2 sources)Tinea dtlicg00-20-9742AthnoujvIalnpsahice deficiencies (4 sources)Deficiency of macronutrients; Translations: [Mild protein-calorie malnutrition]Onset: 678099-23-9067NmqzgziBersa aftercare (1 source)Long-term current use of drug therapy; Translations: [Other snf (current) drug therapy]Onset: 14-41-5568ZavkqkcpNohzw aftercare (1 source)Other snf (current) drug therapy; Translations: [OTH SENIOR LIVING CURRENT DRUG THERAPY]Onset: 47-06-0356DaazgiydCfcgr aftercare (1 source)long-term (current) use of insulin; Translations: [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 PROFESSOR CURRENT USE OF INSULIN]Onset: 26-33-4409LgdnfopcXjslk aftercare (1 source)long-term (current) use of oral hypoglycemic drugs; Translations: [SENIOR LIVING USE ORAL HYPOGLYCEMIC DX]Onset: 71-71-1390AkmgxifmLqvqd and unspecified benign neoplasm (2 sources)Benign neoplasm of pituitary gland; Translations: [Benign neoplasm of pituitary gland]Onset: 16-73-8146LzxsjwhnAjpqc and unspecified benign neoplasm (2 sources)Pituitary mjoqmca72-44-8418GbybbluwPvnxf circulatory disease (1 source)Low blood pressure; Translations: [Hypotension, unspecified]Onset: 65-54-0709AaabjhtqQngaa connective tissue disease (1 source)Other muscle spasm; Translations: [OTHER MUSCLE SPASM]Onset: 52-70-8499AnlmsymeEwpbv diseases of bladder and urethra (3 sources)Overactive -84-6392TackzigOhfud diseases of veins and lymphatics (9 sources)Lefkmkybiw00-82-3634QahlheqyVdoih ear and sense organ disorders (1 source)Cellulitis of right external ear; Translations: [CELLULITIS OF RIGHT EXTERNAL EAR]Onset: 19-42-6185YcdjxxoaKmtaq endocrine disorders (9 sources)Rgddxkjttochrmk24-48-1480FbmqqbnStoii endocrine disorders (9 sources)Male heaawkvosghk91-98-0854PwsyvepAmovu endocrine disorders (2 sources)Testicular hypofunction; Translations: [Testicular hypofunction] Onset: 71-25-5946LlbzicbOwitb gastrointestinal disorders (9 sources)Pynyqcnstvek42-84-8114GfyhuuuwWwoql liver diseases (9 sources)Large agirj68-11-6280IdhaegtwZmpfd lower respiratory disease (1 source)Hypoxemia; Translations: [Hypoxemia]Onset: 80-13-9159JxjblpgiJhxbr male genital disorders (9 sources)Dvzyhlggf60-38-4160MyimbynQpkpb male genital disorders (1 source)Disorder of male genital organ; Translations: [Other specified disorders of the male genital organs]Onset: 08-12-6933GjpcuuhwFsshp male genital disorders (9 sources)Swelling of hjcakge55-50-0565GfnjtxnuYhfhh nutritional; endocrine; and metabolic disorders (8 sources)Morbid obesity; Translations: [Morbid (severe) obesity due to excess calories]Onset: 725484-82-2270GpgwcqeDtgww nutritional; endocrine; and metabolic disorders (1 source)Morbid (severe) obesity due to excess calories; Translations: [MORBID SEVERE OBES D/T EXCESS MATTHEW]Onset: 43-00-4660WbmnvxpMqdqt nutritional; endocrine; and metabolic disorders (1 source)Body mass index (BMI) 50.0-59.9, adult; Translations: [BODY MASS INDEX BMI 50.0-59.9 ADULT]Onset: 57-86-7632MhgflyhKyxjjxodtb disorders (not diabetes) (8 sources)Acute pancreatitis; Translations: [Acute pancreatitis without necrosis or infection, unspecified]Onset: 384138-70-3807CjsalwzxOjidzpbw codes; unclassified (9 sources)Central sleep apnea ybgddrgk44-47-5378SxjkwpqMkbdfshb codes; unclassified (1 source)Sleep apnea; Translations: [Primary central sleep apnea]Onset: 61-40-3818XsmhelzMcqafgzk codes; unclassified (4 sources)Acute pain; Translations: [Pain, unspecified]Onset: 08-18-2021 62-06-5154UjdfgyyfHlngkfbl codes; unclassified (1 source)Procedure and treatment not carried out for other reasons; Translations: [PROC AND TX NOT CARRIED OUT OTH REASONS]Onset: 87-32-0594Qmklviyg Screening and history of mental health and substance abuse codes (5 sources)H/O: drug dependency; Translations: [Personal history of nicotine dependence]Onset: 524833-28-3688PymfyeupAsdz and subcutaneous tissue infections (6 sources)Cellulitis of head [any part, except face]; Translations: [Cellulitis of face]Onset: 73-58-5986PgyskvriGpxiyoqrwrw; intervertebral disc disorders; other back problems (10 sources)Degeneration of lumbar intervertebral disc; Translations: [Other intervertebral disc displacement, lumbar region]Onset: ChronicSpondylosis; intervertebral disc disorders; other back problems (6 sources)Radiculopathy, lumbar region; Translations: [Intervertebral disc disorders with radiculopathy, lumbar region]Onset: 31-76-7068WbvcqoftKdcurrfqr- related disorders (4 sources)Smoker; Translations: [Nicotine dependence, other tobacco product, uncomplicated]Onset: 264946-20-0052KqjuyfbKwlyoyk on above:Added secondary to documentation in Social History.Syncope (1 source)Syncope and collapse; Translations: [Syncope and collapse]Onset: 09-72-3325RkbthkceLffcleykjccx (1 source)N50.82 - Scrotal pain; Translations: [N50.82 - Scrotal pain]Onset: 87-80-9575Wvcaanyyqgjh (1 source)N50.89 - Other specified disorders of the male genital organs; Translations: [N50.89 - Other specified disorders of the male genital organs] Onset: 87-45-0517Leyzikdusobt (1 source)Z30.2 - Encounter for sterilization; Translations: [Z30.2 - Encounter for sterilization]Onset: 95-76-8690Tdzpgsyclbbg (2 sources)LOW BACK PAIN, UNSPECIFIED; Translations: [LOW BACK PAIN, UNSPECIFIED]Onset: 35-29-7904Snwkschplrkj (1 source)CONTACT W/AND (SUSP) EXPOS COVID-19; Translations: [CONTACT W/AND (SUSP) EXPOS COVID-19]Onset: 65-07-7173Udvgayb tract infections (1 source)Urinary tract infectious disease; Translations: [Urinary tract infection, site not specified]Onset: 91-20-0365UwkqobzkGmvwx infection (4 sources)Disease caused by 2019-nCoV; Translations: [COVID-19]Onset: 741454-50-9920Oakycqcs Past or Other Problems Problem ClassificationProblemDateDocumented DateEpisodic/ChronicContraceptive and procreative management (4 sources)Contraception status; Translations: [Vasectomy status]Onset: 361968-25-1184YepcahpjUaiswutpzxqxd and screening for infectious disease (6 sources)Contact with and (suspected) exposure to other viral communicable diseases; Translations: [Contact with or exposure to other viral diseases]Onset: 01-21-2021 Resolved: 18-34-4312SnnreittLngvjvu and fatigue (4 sources)Other fatigue; Translations: [OTHER FATIGUE]Onset: 40-27-9949Iflmqsmd Other aftercare (4 sources)Encounter for therapeutic drug level monitoring; Translations: [ENC THERAPEUTC DRUG LEVL MONITORING]Onset: 35-25-4943QcboojkdPfjcz aftercare (1 source)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 anticoagulants; Translations: [SENIOR LIVING CURRNT USE ANTICOAGULANTS]Onset: 92-60-3524BwvfdofyWzttl liver diseases (3 sources)Liver mass; Translations: [Hepatomegaly, not elsewhere classified] EpisodicOther nutritional; endocrine; and metabolic disorders (1 source)Overweight; Translations: [OVERWEIGHT]Onset: 84-15-3547WwsjykjvPmjha screening for suspected conditions (not mental disorders or infectious disease) (6 sources)Patient encounter status; Translations: [Encounter for screening for other disorder]Onset: 95-71-0163VdkcqosjPtvjzny on above:MRSA nasal screen positive 07/11/2022Other upper respiratory infections (1 source)Acute upper respiratory infection, unspecifiedOnset: 03-24-2021 Resolved: 65-84-4831OshsgrsaRkrcqhfmf; thrombophlebitis and thromboembolism (1 source)Acute embolism and thrombosis of superficial veins of right upper extremity; Translations: [ACUTE EMBO THROMB SUP VNS RT UP EXT]Onset: 09-04-2021 EpisodicPulmonary heart disease (6 sources)Pulmonary embolism; Translations: [Other pulmonary embolism without acute cor pulmonale]Onset: 228733-18-1182SroiiqfzDwmhszu and intentional self-inflicted injury (4 sources)Suicidal ideations; Translations: [SUICIDAL IDEATIONS]Onset: 01-57-1722YjoerhiaAqpaimctjhnt (1 source)LOW BACK PAIN, UNSPECIFIED; Translations: [LOW BACK PAIN, UNSPECIFIED] Onset: 06-25-2022 Results Test NameValueInterpretationReference RangeFacilityPre-Certification Formon 54-24-5690Qfv-Certification Form [id number]#1.00CD:[address] [place], [place] [address]Lab Reportson 22-53-8733Wwt Reports [id number]#1.00CD:[address] [place], [place] [address]Ambulatory Visit Summaryon 90-96-9796Gyhindtozs Visit SummaryNoUC [facility] HospitalPatient Educationon 34-90-3179Jaupxbs EducationNoUC [facility] HospitalUrology Office/Clinic Noteon 33-27-2139Vyswaki Office/Clinic NoteCleveland Clinic South Pointe HospitalComment on above:Result Comment: Electronically Signed By: Patricio CHAKRABORTY MD\.br\Date and Time Signed: 11/23/22 13:02 EDT\.br\Electronically Co-Signed By: Tara Lee\.br\Date and Time Co-Signed: 11/23/22 13:00 EDTAmbulatory Visit Summaryon 08-17-2022 Ambulatory Visit SummaryNoUC [facility] HospitalPatient Educationon 13-79-7378Lrvqbjt EducationNoUC [facility] HospitalPhysician Referralon 67-78-1124Xhykohsty [id number]#1.00CD:127 [facility] HospitalUrology Office/Clinic Noteon 03-50-1217Bovqsle Office/Clinic NoteCleveland Clinic South Pointe HospitalComment on above:Result Comment: Electronically Signed By: Patricio CHAKRABORTY MD\.br\Date and Time Signed: 08/17/22 11:40 EDT\.br\Electronically Co-Signed By: Germaine Mccain\.br\Date and Time Co-Signed: 08/17/22 11:37 EDTC Urineon 86-81-1929Mjxkgusr identified Cx Nom (U)[facility] HospitalComment on above:Performed By: #### [id number], 80579169 ####[facility] [address] [place], [place] [address]BZZpt 32-25-5445Ppsae gap [Moles/Vol]12 mmol/L [place]6-16[facility] HospitalComment on above:Performed By: #### 01170853, 6245184 ####[facility] [address]uh[address] [place], [place] [address]Frfwapu [Mass/Vol]8.9 mg/dLNormal8.9-11.1FKettering Health HamiltonComment on above:Performed By: #### 51269690, 0140847 ####[facility] [address] [place], [place] [address]Qxmeipsy [Moles/Vol]102 mmol/XPytwul018-105NnjaozKnox Community HospitalComment on above: Performed By: #### 31821747, 6951099 ####[facility] [address] [place], [place] [address]VH1 [Moles/Vol]24 mmol/CDhvwue00-25 [facility] HospitalComment on above:Performed By: #### 27634185, 3567818 ####[facility] [address]spjf[address] [place] [address] Creatinine [Mass/Vol]0.6 mg/dLNormal0.5-1.3FKettering Health HamiltonComment on above:Performed By: #### 92725199, 6928881 ####[facility] [address] [place], [place] [address]Clwyzif [Mass/Vol]259 mg/hBSfsr72-554 [facility] HospitalComment on above:Result Comment: If this glucose result represents a fasting glucose, interpretation should refer tothe following reference range: 55-99 mg/dLPerformed By: #### 55923350, 3040950 ####[address] [address]Qletiqpfu [Moles/Vol]3.9 mmol/LNormal3.5-5.3FKettering Health HamiltonComment on above: Performed By: #### 79752814, 2394754 ####[facility] [address] [place], [place] [address]Vliuml [Moles/Vol]134 mmol/LLow 135-145[facility] HospitalComment on above:Performed By: #### 91466915, 4839983 ####[facility] [address] [place], [place] [address]Qabk nitrogen [Mass/Vol]14 mg/dLNormal5-21[facility] Comment on above:Performed By: #### 11469345, 8609359 ####[facility] [address] [place], [place] [address]Doaz nitrogen/Creatinine [Mass ratio]23 No CnbvbXjkk21-43Kznxcw [facility]aritan HospitalComment on above:Performed By: #### 16468142, 5501496 ####Angela [facility] [address]yhxz[address] [place], [place] [address]HJMNBOMMSCgsdzdp By: Lab Khushboo on 07-13-2022 Glucose [Mass/Vol]292 mg/eQYucu41 - 99 mg/dLHASKELL [facility] POC SubsectionComment on above: Result Comment: Notified RN/MDPOC Device [id number] Interpretation CodeHASKELL COUNTY COMM[facility] POC SubsectionPOC User [id number] Interpretation CodeHASKELL COUNTY [facility] POC SubsectionPOC UsernamePALAGYI, CATHRYNInvalid Interpretation CodeHASKELL [facility] POC SubsectionGlucose [Mass/Vol]238 mg/xTSyny89 - 99 mg/dLHASKELL COUNTY [facility] POC SubsectionComment on above:Result Comment: Notified RN/MDPOC Device [id number] Interpretation CodeFT POC SubsectionPOC User [id number] Interpretation CodeHASKELL [facility] POC SubsectionPOC UsernamePALAGYI, CATHRYNInvalid Interpretation Code [facility] POC SubsectionCHEMISTRYOrdered By: SYSTEM SYSTEM on 08-39-7116Fhuqb gap [Moles/Vol]12 mmol/LNormal6 - 16 mEq/LFTMC RemisolCalcium [Mass/Vol]8.9 mg/dL Normal8.9 - 11.1 mg/dLFT RemisolChloride [Moles/Vol]102 mmol/OSomtmg373 - 111 mmol/LFTMC RemisolCO2 [Moles/Vol]24 mmol/LXplfwi94 - 31 mmol/LFTMC Remisol Creatinine [Mass/Vol]0.6 mg/dLNormal0.5 - 1.3 mg/dLHASKELL COUNTY [facility] RemisolGFR/1.73 sq M.predicted among non-blacks MDRD (S/P/Bld) [Vol rate/Area]131 mL/min/1.73 m2 Normal>=59mL/min/1.73 m2[facility] Chem SGlucose [Mass/Vol]259 mg/wATynu72 - 199 mg/dL [facility] RemisolPotassium [Moles/Vol]3.9 mmol/LNormal3.5 - 5.3 mmol/LFTMC Remisol Sodium [Moles/Vol]134 mmol/JGaz715 - 145 mmol/LFTMC RemisolUrea nitrogen [Mass/Vol]14 mg/dLNormal5 - 21 mg/dLHASKELL [facility] RemisolUrea nitrogen/Creatinine [Mass ratio]23 mg/rkBuxz30 - 20[facility] RemisolCapillary Glucose POCon 99-09-9112Nzcqeaa [Mass/Vol]292 mg/aWOgww05-24HjlgbfKnox Community HospitalComment on above:Result Comment: Notified RN/MDPerformed By: #### [id number] ####[facility] [address] [place], [place] [address]Kbdttso [Mass/Vol]238 mg/dL Gmgb66-73Vdqjpx34 Martin StreetComment on above:Result Comment: Notified RN/MDPerformed By: #### [id number] ####[facility] [address] [place], [place] [address]Blpzpvzav Instructionson 84-80-3596Lpdijfels [id number]#1.00CD:127NoUC [facility] HospitalDischarge Note-Nursingon 85-09-0167Hmprostrq Note-NursingNormal [facility] HospitalFerritinon 84-33-9479Ezdbuzop [Mass/Vol]126 ng/mL Awixem95-581Y[address] [place], [place] [address]Comment on above:Result Comment: NORMALS MEN <30 YRS 16-132 ng/mL MEN >30 YRS 8-338 ng/mL WOMEN (PREMEN) 6-104ng/mL WOMEN (POSTMEN) 12-210 ng/mLPerformed By: #### [id number], 3473185, 5106100, 7507840, [id number] ####[facility] [address] [place], [place] [address]Ohjdfskev Clinical Summaryon 50-60-1683Itpdlunau Clinical SummaryNormal [facility] HospitalInpatient Patient Summaryon 04-93-0211Xkmysbljx Patient SummaryNormSelect Medical Specialty Hospital - Cincinnati NorthInpatient Patient SummaryNormal [facility] HospitalInterdisciplinary Note - Case Manageron 07-13-2022 Interdisciplinary Note - Case ManagerNoUC [facility] HospitalComment on above:Result Comment: Electronically Signed By: Quang CEDILLO, Evie\.br\Date and Time Signed: 07/13/22 11:37 EDTPatient Education - Texton 76-02-0229Femvwwr Education - TextNoUC West Chester HospitaleGFRon 42-02-6365GUC/1.73 sq M.predicted among non-blacks MDRD (S/P/Bld) [Vol rate/Area]131 mL/min/1.73 m2 Normal>=59[facility] HospitalComment on above:Order Comment: Order added by Discern Expert.Result Comment: Chronic kidney disease could be indicated at eGFR's of less than 60 mL/min/1.73m2. Kidney failure is indicated at less than 15 mL/min/1.73m2.Performed By: #### [id number], 9955045 ####[facility] [address] [place], [place] [address]ABAub 37-52-0778Cusmmvehfto peptide B (Bld) [Mass/Vol]pg/mLNormal5-80[facility] HospitalComment on above:Performed By: #### [id number] ####[facility] [address] [place], [place] [address]UKKMYBKZJDrrhqgr By: Diego Cuello on 07-12-2022 Glucose [Mass/Vol]284 mg/rJOcue01 - 99 mg/dLHASKELL COUNTY [facility] POC SubsectionComment on above: Result Comment: Cleaned MeterPOC Device [id number] Interpretation CodeFT POC SubsectionPOC User [id number] Interpretation CodeFT POC SubsectionPOC UsernameMOTON, NADIAInvalid Interpretation CodeFT POC Subsection CHEMISTRYOrdered By: Cass Ryan on 71-57-0916Qsluikrhbjh peptide B (Bld) [Mass/Vol]pg/mLNormal5 - 80 pg/mLFTMC HemeManSSCHEMISTRYOrdered By: SYSTEM SYSTEM on 37-07-9112VAC [Mass/Vol]6.3 mg/dLHigh<=1.9mg/dLFTMC RemisolFerritin [Mass/Vol]126 ng/oOHhxzke34 - 336 ng/mLHASKELL [facility] RemisolLDH [Catalytic activity/Vol] 160 [iU]/zHiglcx39 - 218 Int._Unit/LFTMC RemisolProcalcitonin0.10 ng/mLNormal 0.00 - 0.50 ng/mLHAS[facility] RemisolTroponin I.cardiac [Mass/Vol]pg/mLLow15.90 - 38.40 pg/mLHASKELL [facility] RemisolCOVID-19 ([facility])on 24-71-4871Vpihecvjle InstrumentFT Waqas 2 NormalKnox Community HospitalComment on above:Performed By: #### [id number] ####[place] [address] [id number] SARS-CoV-2 (COVID-19) RNA ECTOR+probe Ql (Resp)Not detectedNormalNot Detected [facility] HospitalComment on above:Result Comment: This test result should be correlated with clinical presentations and medical history by a healthcare provider to determine its clinical significance.This assay was performed by a reverse transcriptase real-time polymerase chain reaction (rt PCR) method on the [employer] system. This test has been authorized only for the detection of nucleic acid from SARS-CoV-2, not for any other viruses or pathogens. This test has not been FDA cleared or approved. This test has been authorized by FDA under an Emergency Use Authorization (EUA). This test is only authorized for the duration of timethe declaration on that circumstances exist justifying the authorization emergency use of in vitro diagnostic tests for detection and/or diagnosis of COVID-19 infection under section 564 (b) (1) of th e Act, 21 U.S.C. 360 bbb-3 (b) (1), unless authorization is terminated or revoked sooner.Performed By: #### [id number] ####[place] [address] [id number]-NnR-4 (COVID-19) RNA ECTOR+probe Ql (Unsp spec)PassNormalPassKnox Community HospitalComment on above:Performed By: #### [id number] ####Angela Ware [address]Specimen source Nom (Unsp spec)NasalNormSelect Medical Specialty Hospital - Cincinnati NorthComment on above:Performed By: #### [id number] ####[address]ADMITTED TO INTENSIVE CARE UNIT FOR CONDITION OF INTEREST:FIND:PT:NON[facility] Comment on above:Performed By: #### [id number] ####[place] [id number] IN A HEALTHCARE SETTING:FIND:PT:NONCleveland Clinic Lutheran HospitalComment on above:Performed By: #### [id number] ####[place] [id number] TEST FOR CONDITION OF INTEREST:FIND:PT:UnknownNormal [facility] HospitalComment on above:Performed By: #### [id number] ####[address]HAS SYMPTOMS RELATED TO CONDITION OF INTEREST:FIND:PT:UnknownrmSelect Medical Specialty Hospital - Cincinnati NorthComment on above:Performed By: #### [id number] ####[place] [id number] FOR CONDITION OF INTEREST:FIND:PT:YESNormSelect Medical Specialty Hospital - Cincinnati NorthComment on above:Performed By: #### [id number] ####[address]PREGNANCY STATUS:FIND:PT:NONormal [facility] HospitalComment on above:Performed By: #### [id number] ####[address] [facility]IDES [facility] A [facility]TING:FIND:PT:NON[facility] Comment on above:Performed By: #### [id number] ####[address]CRPon 09-46-8456MHH [Mass/Vol]6.3 mg/dLHigh<=1.9[facility] HospitalComment on above:Performed By: #### 20738235, 6529284, 0651980, 0684006, [id number] ####[address] [address]UJ Head or Brain w/o Contraston 56-92-4670IB Head or Brain w/o ContrastNormalKnox Community HospitalCT Spine Cervical w/o Contraston 81-93-5884YI Spine Cervical w/o ContrastNormalKnox Community HospitalCTA Cheston 13-43-2305MJO ChestNormSelect Medical Specialty Hospital - Cincinnati NorthCapillary Glucose POCon 36-68-8690Xzrcfqa [Mass/Vol]284 mg/eTKxta07-10 [facility] HospitalComment on above:Result Comment: Cleaned Meter Performed By: #### [id number] ####[address] [address]Uylkdhv [Mass/Vol]378 mg/tPQlwp76-62CtdpacKnox Community HospitalComment on above:Performed By: #### [id number] ####[address] [address]Yivtofw [Mass/Vol]296 mg/yWFdee73-48YwzhlfKnox Community HospitalComment on above:Performed By: #### [id number] ####[address] [address]Dsgmguc [Mass/Vol]324 mg/pDStgh72-99CmelcuKnox Community HospitalComment on above:Result Comment: Notified RN/MDPerformed By: #### [id number] ####[address] [address]Tzxlrgt [Mass/Vol]409 mg/yBQwno32-45FrgoeyKnox Community HospitalComment on above:Result Comment: Notified RN/MDPerformed By: #### [id number] ####[address], [place] [address]Qdjwxxl for Treatmenton 96-76-8534Xwjhvwu for Treatment [id number]#1.00CD:127NoC[facility] Clinic [facility] CenterED Clinical Summaryon 25-76-7852UM Clinical SummaryNoMem[facility] Note-Physicianon 22-67-9388TA Note-PhysicianCleveland Clinic South Pointe HospitalComment on above:Result Comment: Electronically Signed By: Marietta Guerrero DO\Date and Time Signed: 07/12/22 01:02 EDTED Patient Education Noteon 16-80-0353LY Patient Education NoteNoMem[facility] Patient Summaryon 49-33-6699SA Patient SummaryNo[facility] EMS Documentationon 91-26-8916QNO DocumentationNo[facility] EMS DocumentationNoUC [facility] HospitalInfluenza A&B Agon 07-12-2022 Influenzae A AgNegativeNormalNegativeKnox Community HospitalComment on above:Performed By: #### [id number], [id number] ####[facility] [address] [place], [place] [address]Saxvybupfs B AgNegativeNormalNegative [facility] HospitalComment on above:Result Comment: Test sensitivity and specificity vary for age group, specimen type, antigen types, and prevalence of disease. Test results must be evaluated in conjunction with other clinical data available to the physician. Individuals who received nasally administered Influenza A vaccine may havepositive test results up to 3 days after vaccination.Performed By: #### [id number], [id number] ####[facility] [address] [place], [place] [address]Enuhiqweo Correspondence Officeon 28-73-8952Wzpswiyhe Correspondence Office [id number]#1.00CD:[address] [place], [place] [address]Interdisciplinary Note - Case Manageron 74-30-9627Bxkhyshlkqrmynpzh Note - Case ManagerNoUC West Chester HospitalComment on above:Result Comment: Electronically Signed By: Cass Loera.hilda\Date and Time Signed: 07/12/22 12:26 EDTLDHon 61-21-3540AHY [Catalytic activity/Vol]160 Int._Unit/CPwbpjs02-947 [facility] HospitalComment on above:Performed By: #### 55899000, 3236599, 8606222, 1806298, [id number] ####[facility] L [address] [place], [place] [address]Wuuvwcf Recordon 59-90-3302Lzufdcc [id number]#1.00CD:[address] [place], [place] [address]Monitor [id number]#1.00CD:127 [facility] HospitalMonitor Record [id number]#1.00CD:[address] [place], [place] [address]Procalcitoninon 60-28-9182Vdujigagsehsi.10 ng/mLNormal.00-.50[facility] HospitalComment on above:Result Comment: <0.5 ng/mL Low risk of severe [...] to retest PCT within 6 to 24 hours.Performed By: #### 45717951, 3588013, 1113595, 7020840, [id number] ####[facility] [address] [place], [place] [address]SUQ - Preliminary Cat Scan Reporton 16-27-2471RHC - Preliminary Cat Scan [id number]#1.00CD:127 NormalKnox Community HospitalRapid COVID Antigen ([facility])on 77-76-5676Csxdb COV Int NEG CtlPassNormalKnox Community HospitalComment on above:Performed By: #### [id number], [id number] ####Julio César [facility] [address] [place], [place] [address]Vpdug COV Int POS CtlPassNormalKnox Community HospitalComment on above:Performed By: #### 05037805, [id number] ####Julio César [facility] [address] [place], [place] [address]GPBG-LxL+SARS-CoV-2 (COVID-19) Ag IA.rapid Ql (Resp)Not detectedNormalNot DetectedKnox Community HospitalComment on above:Result Comment: The [employer]? System for Rapid Detection of SARS-CoV-2 is a chromatographic digital immunoassay intended for the direct and qualitative detection of SARS-CoV-2 nucleocapsid antigensin nasal swabs from individuals who are suspected of COVID-19 by their healthcare provider within the first five days of the onset of symptoms. Negative results should be treated as presumptive, do not rule out SARS-CoV-2 infection and should not be used as the sole basis for treatment or patient management decisions, including infection control decisions. Negative results should be considered inthe context of a patient?s recent exposures, history [...] the declaration that circumstances exist justifying the authori zation of emergency use of in vitro diagnostics for detection and/or diagnosis of the virus that causes COVID-19 under Section 564(b)(1) of the Act, 21 U.S.C. ? 360bbb-3(b)(1), unless the authorization is terminated or revoked sooner. Performed By: #### [id number], [id number] ####[facility] [address] [place], [place] [address]Bubzmdwx 3 Hr.on 58-60-5943Qutcfudw I.cardiac [Mass/Vol]2.30 pg/mLLow15.90-38.40[facility] HospitalComment on above:Result Comment: The 95% CI (Confidence Interval) PPV (Positive Predictive Value) for myocardial infarction in females is 38 pg/mL, in males 51 pg/mL. The results should be used in conjunction with clinical conditions of myocardial infarction.(Access High Sensitivity Troponin I Instructions For Use, [employer], October 2017)Performed By: #### [id number] ####[facility] [address] [place], [place] [address]Woywqxru 6 Hr.on 43-88-7138Qpvtzafl I.cardiac [Mass/Vol]ng/mLLow15.90-38.40[facility] HospitalComment on above:Result Comment: The 95% CI (Confidence Interval) PPV (Positive Predictive Value) for myocardial infarction in females is 38 pg/mL, in males 51 pg/mL. The results should be used in conjunction with clinical conditions of myocardial infarction.([employer] High Sensitivity Troponin I Instructions For Use,[employer], October 2017)Performed By: #### [id number], 6274902, 9781812, 8926272, [id number] ####[facility] [address] [place], [place] [address]FB With Cult Reflexon 07-12-2022 Bacteria LM Ql (Urine sed)1+ /HPFAbnormalTraceKnox Community HospitalComment on above:Performed By: #### [id number], 04080197 ####[address] [address]Ddwemlpzf Ql (U)NegativeNormal NegativeKnox Community HospitalComment on above:Performed By: #### 8626048, 23548113 ####[address] [address]Avxpsbj (U)CLEARNormalClearKnox Community HospitalComment on above: Performed By: #### 3192056, 84115304 ####[address] [address]Ituqw (U)YELLOWNormalYellowKnox Community HospitalComment on above:Performed By: #### 7482816, 84758015 ####[address] [address] Epithelial cells.squamous LM.HPF (Urine sed) [#/Area]2-3Mtmmfp6-2Cwxwoz [facility] HospitalComment on above:Performed By: #### 6199989, 19977452 ####[address] [address]Btjxsmd Test strip (U) [Mass/Vol]2+AbnormalNegativeKnox Community HospitalComment on above:Performed By: #### 2820292, 32211593 ####[address] [address]Mfhnssxvky Ql (U)TRACEAbnormal NegativeKnox Community HospitalComment on above:Performed By: #### 8871837, 42163734 ####[address] [address]Nrsxddi (U) [Mass/Vol]NegativeNormalNegativeKn[facility] Community Hospital Comment on above:Performed By: #### 0032137, 55974236 ####[address] [address]Ykshspx.plasma/Uehling.RBC (Bld) [Mass ratio]2-12Khtyhu8-6Zfhjjq [facility] HospitalComment on above: Performed By: #### 6695892, 68406546 ####[address] [address]Xuslh Ql (Urine sed)1+NormalKnox Community HospitalComment on above:Performed By: #### 9391274, 98123747 ####[address] [address] Nitrite Ql (U)PositiveAbnormalNegativeKnox Community HospitalComment on above:Performed By: #### 1713411, 29652250 ####[address] [address]aA (U)6.0 [pH]Invalid Interpretation Code5.0-9.0[facility] HospitalComment on above:Performed By: #### 3706852, 88492135 ####[address] [address]Qjcinrn (U) [Mass/Vol]2+AbnormalNegativeKnox Community HospitalComment on above:Performed By: #### 0481007, 19326660 ####[address] [address]Mdwgyzfu gravity (U) [Rel density]1.020Invalid Interpretation Code1.005-1.030[facility] HospitalComment on above:Performed By: #### 7379284, 27017628 ####[address] [address]Uhzc of Urine collection methodClean CatchNormSelect Medical Specialty Hospital - Cincinnati NorthComment on above: Performed By: #### 2365924, 37408310 ####[address] [address]Sbtqgwolognd Qn (U)0.2 {Chintan'U}/dL Normal0.0-1.0[facility] HospitalComment on above:Performed By: #### 6287654, 04678030 ####[address] [address]WFZ Auto Ql (U)NegativeNormalNegPeoples HospitalComment on above:Performed By: #### 7151253, 21934150 ####[place] [address] [place], [place] [address]JIB LM.HPF (Urine sed) [#/Area]3-60Nbpthwhx1-6MjhvnrKettering Health HamiltonComment on above:Performed By: #### 9229057, 67995169 ####[address] [address]TV Chest Single Viewon 88-83-9642TK Chest Single ViewNormal [facility] HospitalAuto Diffon 14-93-5038Ciwgpvjkt/100 WBC (Bld)0.2 % Normal0.0-2.0[facility] HospitalComment on above:Order Comment: Order Added by Discern Expert.Performed By: #### 5219327, 20402776, 2994052, 5996652, 0638858, 5414651, 30341906, 9443633, 4717947, 41532571 ####[address] [address]Fjdgmdupj/Leukocytes Auto (Bld) [Pure # fraction]0.0 E9/LNormal0.0-0.2FKettering Health HamiltonComment on above:Order Comment: Order Added by Discern Expert.Performed By: #### 1026293, 37749532, 1228568, 0833489, 2959044, 1613595, 60388221, 0943201, 4175629, 30501262 ####[place] [address] [place], [place] [address]Hmsfozolonr/100 WBC (Bld)0.3 %Normal0.0-8.0[facility] HospitalComment on above:Order Comment: Order Added by Discern Expert. Performed By: #### 5507669, 68352487, 6955746, 3052886, 7137375, 0549837, 20104100, 2707719, 5607028, 75998388 ####[place] [address] [place], [place] [address]Qflayyfzmxv/Leukocytes Auto (Bld) [Pure # fraction]0.0 E9/LNormal0.0-0.5FKettering Health HamiltonComment on above:Order Comment: Order Added by Discern Expert.Performed By: #### 9574008, 34480052, 9664397, 6770387, 4981975, 8001105, 23211090, 5299856, 7722089, 61598262 ####Angela [place] [address] [place], [place] [address]Nzsdvvvrmcb/100 WBC (Bld)15.1 %Mwiiuo17.0-50.0[facility] Comment on above:Order Comment: Order Added by Discern Expert.Performed By: #### 1884539, 15269064, 0711192, 3326374, 6056776, 0198670, 59055439, 9540445, 2451846, 75112438 ####Julio César [address] [address]Jozlnctnvqg/Leukocytes Auto (Bld) [Pure # fraction]1.0 E9/L Normal1.0-4.0[facility] HospitalComment on above:Order Comment: Order Added by Discern Expert.Performed By: #### 5724792, 24643578, 1689370, 5999857, 2524455, 9905254, 89190955, 9607088, 2050169, 41999923 ####Julio César [address] [address]Upysvctjy/100 WBC (Bld)8.3 % Normal4.0-14.0[facility] HospitalComment on above:Order Comment: Order Added by Discern Expert.Performed By: #### 4996025, 52072943, 7786456, 7334893, 0380075, 1068984, 71138817, 0967788, 8473878, 89086036 ####Julio César [place] [address] [place], [place] [address]Uvgxluglg/Leukocytes Auto (Bld) [Pure # fraction]0.6 E9/LNormal0.2-1.0[facility] HospitalComment on above:Order Comment: Order Added by Discern Expert.Performed By: #### 0520396, 82681290, 7027774, 5439541, 9886610, 2033871, 70776455, 7335405, 2417077, 62562554 ####[facility] [address] [place], [place] [address]Jxcpfbbokwy/100 WBC (Bld)76.1 %High36.0-75.0[facility] HospitalComment on above:Order Comment: Order Added by Discern Expert. Performed By: #### 1965840, 48318560, 7600035, 3310079, 0864699, 8857800, 35761768, 8551299, 3069059, 65862411 ####[address] [place], [place] [address]Pmmwgkdgone/Leukocytes Auto (Bld) [Pure # fraction]5.2 E9/LNormal2.0-7.5FKettering Health HamiltonComment on above:Order Comment: Order Added by Discern Expert.Performed By: #### 8636813, 91333628, 1909536, 4627750, 7736836, 5664684, 11162528, 7899081, 2894888, 42564040 ####[address] [place], [place] [address]XDHlq 16-39-4230Moxggwqjme [Mass/Vol]1.1 mg/dLNormal0.5-1.3FKettering Health HamiltonComment on above:Performed By: #### 7778697, 74034059, 4877714, 2877885, 7855231, 9259393, 03381274, 3738712, 4895283, 80513659 ####[address] [place], [place] [address]Vgcq nitrogen [Mass/Vol]11 mg/dLNormal5-21Kn[facility] HospitalComment on above: Performed By: #### 4961088, 95347121, 5662335, 0717975, 2427867, 4583516, 06929734, 9030749, 6260630, 64301148 ####[facility] [address] [place], [place] [address]Qhms nitrogen/Creatinine [Mass ratio] 10 No YwbvwLgmwze73-99TvfddxKnox Community HospitalComment on above:Performed By: #### 9608000, 88498465, 9978152, 0251225, 1477921, 5470860, 19992064, 7030153, 0797216, 04422870 ####[facility] [address] [place], [place] [address]Rwrep gap [Moles/Vol]16 mmol/LNormal6-16[facility] HospitalComment on above:Performed By: #### 4596827, 25728462, 3490549, 2244139, 7622774, 9572123, 41861720, 4757899, 9467270, 40467480 ####[facility] [address] [place], [place] [address]Wmtyiwm [Mass/Vol]8.9 mg/dL Normal8.9-11.1FKettering Health HamiltonComment on above:Performed By: #### 6630760, 79760737, 3470285, 2921134, 7325767, 5955610, 16187031, 3427027, 0877463, 31079641 ####[facility] [address] [place], [place] [address]Rrqtfmif [Moles/Vol]98 mmol/OWpi939-939WunpeiKnox Community HospitalComment on above:Performed By: #### 9813622, 46265167, 4813676, 8208192, 7619933, 8728576, 70522287, 9245966, 7621613, 53534032 ####[facility] [address] [place], [place] [address]LE3 [Moles/Vol]24 mmol/LNormal 21-31Kn[facility] HospitalComment on above:Performed By: #### 9656434, 63358277, 5379569, 6326353, 0759675, 6480346, 83942074, 0947545, 0568026, 83726232 ####[facility] [address] [place], [place] [address]Jqppkjp [Mass/Vol]309 mg/sKQfec16-788SydckfKnox Community HospitalComment on above:Result Comment: If this glucose result represents a fasting glucose, interpretation should refer tothe following reference range: 55-99 mg/dL Performed By: #### 6061156, 84125276, 4178441, 3662819, 1476312, 6209790, 75093660, 9312402, 6344597, 69299673 ####[facility] [address] [place], [place] [address]Htkiutury [Moles/Vol]4.7 mmol/LNormal 3.5-5.3FKettering Health HamiltonComment on above:Performed By: #### 9649501, 08863061, 1278781, 3074206, 7955306, 4011163, 84251548, 5137244, 7875586, 97987833 ####[facility] [address] [place], [place] [address]Nhvldg [Moles/Vol]133 mmol/MEhg424-583ScdqfkKnox Community HospitalComment on above:Performed By: #### 2977104, 96881978, 6292144, 6762204, 4439419, 6091272, 41913689, 4980311, 3784521, 38538376 ####[facility] [address] [place], [place] [address]IQP w/ Auto Diffon 07-11-2022 Erythrocyte distribution width (RBC) [Ratio]14.5 %High10.9-14.2FKettering Health HamiltonComment on above:Performed By: #### 2317984, 39519602, 8627299, 1452735, 7580717, 5310984, 84378469, 5181565, 9428583, 01860126 ####[facility] [address] [place], [place] [address]Egifdbaueh (Bld) [Volume fraction]44.2 %Woxoum61.7-49.0[facility] HospitalComment on above:Performed By: #### 4733415, 85122487, 4854170, 0093310, 4824717, 1865887, 72441436, 6721580, 0661170, 47246296 ####Julio César [facility] [address] [place], [place] [address]Xjfkncysvd (Bld) [Mass/Vol]15.0 g/dL Vaubbo87.5-17.5FKettering Health HamiltonComment on above:Performed By: #### 2187877, 80953147, 3600136, 3380761, 6568065, 3691040, 16774393, 2585703, 5115256, 12001737 ####[facility] [address] [place], [place] [address]QZL (RBC) [Entitic mass]31.8 hoBzsdgi94.0-34.0Kn[facility] HospitalComment on above:Performed By: #### 0042670, 47271554, 1334117, 7234116, 9082913, 5302006, 22153085, 7407466, 1973000, 56729687 ####Angela [facility] [address] [place], [place] [address]VWBH (RBC) [Mass/Vol] 34.0 g/lTXjyvut44.4-36.0Kn[facility] HospitalComment on above:Performed By: #### 7746761, 60307027, 6696737, 2953589, 5148624, 2621328, 90357622, 2715186, 2266151, 88694479 ####[facility] [address] [place], [place] [address]NVR (RBC) [Entitic vol]93.3 dZTwkcdv61.0-100.0 [facility] HospitalComment on above:Performed By: #### 8904818, 62350256, 3242642, 2687932, 2113691, 1962178, 70415748, 3167183, 9610254, 50064467 ####Julio César [facility] [address] [place], [place] [address]Fokkkqoq mean volume (Bld) [Entitic vol]9.4 fLNormal6.4-10.8[facility] HospitalComment on above:Performed By: #### 4576483, 67221467, 6551796, 3900545, 1106351, 6676499, 29502466, 2440086, 8454817, 46309591 ####Julio César [facility] [address] [place], [place] [address]Hbzuuzufl (Bld) [#/Vol]191.0 E9/EWbwrus844.0-500.0Kn[facility] HospitalComment on above: Performed By: #### 4615538, 24688931, 8064519, 0179332, 2270720, 5171278, 79129525, 8132025, 1906841, 41546043 ####Julio César [address] [address]UIK (Bld) [#/Vol]4.7 E12/LNormal 4.3-5.9Kn[facility] HospitalComment on above:Performed By: #### 5060461, 84664528, 7813655, 9322575, 9554595, 6750437, 69787073, 1642162, 0459813, 29713012 ####Angela [address] [place], [place] [address]OYY corrected for nucl RBC Auto (Bld) [#/Vol]6.8 E9/LNormal4.0-11.0[facility] HospitalComment on above:Performed By: #### 8135736, 14189223, 1154937, 1538281, 3946437, 5508588, 46019483, 4639039, 6690424, 78879583 ####Julio César [address] [place] [address] CHEMISTRYOrdered By: SYSTEM SYSTEM on 16-22-3660Dmktjoid I.cardiac [Mass/Vol] 2.30 pg/mLLow15.90 - 38.40 pg/mLFTMC RemisolAlbumin [Mass/Vol]3.8 g/dLNormal3.3 - 5.0 gm/dLFTMC RemisolAlbumin/Globulin [Mass ratio]1.0 {ratio}Low1.1 - 2.2[facility] RemisolALP [Catalytic activity/Vol]92 [iU]/bLyouha85 - 98 Int._Unit/LFTMC RemisolALT No additional P-5'-P [Catalytic activity/Vol]37 [iU]/dNormal6 - 46 Int._Unit/LFTMC RemisolAnion gap [Moles/Vol]16 mmol/LNormal6 - 16 mEq/LFTMC RemisolAST [Catalytic activity/Vol]28 [iU]/dNormal5 - 43 Int._Unit/LFTMC Remisol Bilirubin [Mass/Vol]1.2 mg/dLHigh0.0 - 1.1 mg/dLFTMC RemisolBilirubin.direct [Mass/Vol]0.2 mg/dLNormal0.1 - 0.4 mg/dLFTMC RemisolBilirubin.indirect [Mass or moles/Vol]1.0 mg/dLHigh0.1 - 0.9 mg/dLFTMC RemisolCalcium [Mass/Vol]8.9 mg/dL Normal8.9 - 11.1 mg/dLFTMC RemisolChloride [Moles/Vol]98 mmol/FNyx484 - 111 mmol/LFTMC RemisolCO2 [Moles/Vol]24 mmol/QKszang34 - 31 mmol/LFTMC Remisol Creatinine [Mass/Vol]1.1 mg/dLNormal0.5 - 1.3 mg/dLFTMC RemisolGFR/1.73 sq M.predicted among non-blacks MDRD (S/P/Bld) [Vol rate/Area]91 mL/min/1.73 m2 Normal>=59mL/min/1.73 m2FT Chem SGlobulin (S) [Mass/Vol]3.7 g/dLNormal1.4 - 4.0 gm/dLFTMC RemisolGlucose [Mass/Vol]309 mg/nBSfiw06 - 199 mg/dLFTMC Remisol Magnesium [Mass/Vol]1.4 mg/dLNormal1.3 - 2.4 mg/dLFT RemisolPotassium [Moles/Vol]4.7 mmol/LNormal3.5 - 5.3 mmol/LFTMC RemisolProtein [Mass/Vol]7.5 g/dLNormal6.0 - 7.8 gm/dLFT RemisolSodium [Moles/Vol]133 mmol/MYvz415 - 145 mmol/LFTMC RemisolTroponin I.cardiac [Mass/Vol]4.40 pg/mLLow15.90 - 38.40 pg/mL [facility] RemisolUrea nitrogen [Mass/Vol]11 mg/dLNormal5 - 21 mg/dLFT RemisolUrea nitrogen/Creatinine [Mass ratio]10 mg/juKfvrbz93 - 20[facility] RemisolCOAGULATION Ordered By: Aura Qiu on 99-36-6115vUBK Coag (PPP) [Time]30.5 aGbstby97.1 - 36.5 second(s)[facility] Auto CoagFibrin D-dimer FEU (PPP) [Mass/Vol]1690 ng/mL FEU Invalid Interpretation Bjfg285 - 500 ng/mL FEUFTMC Auto CoagComment on above: Result Comment: Results Called To er dr guerrero By And Read Back For Confirmation On 07/11/2022 20:41:56 EDT Results Verified By Repeat AnalysisINR Coag (PPP) [Relative time]1.1 {INR} Invalid Interpretation CodeFT Auto CoagPT Coag (PPP) [Time]12.0 sNormal9.4 - 12.5 second(s)[facility] Auto CoagCapillary Glucose POCon 16-55-2877Vttfhjl [Mass/Vol] 317 mg/aYYsvy49-85VetohkKnox Community HospitalComment on above:Result Comment: Notified RN/PREMerformed By: #### [id number] ####Angela [facility] [address] [place] [address]O-Gnkdvry [birth year]30Qumraa D-dimer FEU (PPP) [Mass/Vol]1690 CD:7800601148Fhizfzyn015-674Dtnfel [facility] Comment on above:Result Comment: Results Called To er dr guerrero By ts And Read Back For Confirmation On 07/11/2022 20:41:56 EDTResults Verified By Repeat AnalysisThis assay is intended for use as an aid in the diagnosis of DVT or PE. These conditions cannot be excluded with certainty solely on the basis of a D- dimer concentration being within the reference rangeThis D-Dimer assay may be used in conjunction with a non-high clinical pretest probability assessment to exclude deep-vein thrombosis(DVT). For exclusion of venous thrombosis or pulmonary embolism the analyte D-Dimer should not be used as an aid in patients with:Therapeutic dose anticoagulant therapy for >24 hoursFibrinolytic therapy within previous7 daysTrauma or surgery within previous 4 weeksDisseminated malignaciesAortic aneurysmSepsis, severe infections, pneumonia, severe skin infectionsLiver cirrhosisPregnancyPerformed By: #### 0276366, 49610403, 7364046, 1750311, 2800563, 6144024, 19515965, 7345365, 9980168, 33049971 ####Julio César [facility] [address] [place], [place] [address]RZ Note-Nursing on 86-94-2798GF Note-NursingNormalKnox Community HospitalHEMATOLOGYOrdered By: SYSTEM SYSTEM on 80-91-8793Weeannjxb/100 WBC (Bld)0.2 %Normal0.0 - 2.0 %[facility] HemeAutoSSBasophils/Leukocytes Auto (Bld) [Pure # fraction]0.0 E9/LNormal0.0 - 0.2 E9/LFTMC HemeAutoSSEosinophils/100 WBC (Bld)0.3 %Normal0.0 - 8.0 %[facility] HemeAutoSSEosinophils/Leukocytes Auto (Bld) [Pure # fraction]0.0 E9/LNormal0.0 - 0.5 E9/LFTMC HemeAutoSSLymphocytes/100 WBC (Bld)15.1 %Farldn57.0 - 50.0 %[facility] HemeAutoSSLymphocytes/Leukocytes Auto (Bld) [Pure # fraction]1.0 E9/LNormal1.0 - 4.0 E9/LFTMC HemeAutoSSMonocytes/100 WBC (Bld)8.3 %Normal4.0 - 14.0 %[facility] HemeAutoSSMonocytes/Leukocytes Auto (Bld) [Pure # fraction]0.6 E9/LNormal0.2 - 1.0 E9/LFTMC HemeAutoSSNeutrophils/100 WBC (Bld)76.1 %High36.0 - 75.0 %[facility] HemeAutoSSNeutrophils/Leukocytes Auto (Bld) [Pure # fraction]5.2 E9/LNormal2.0 - 7.5 E9/LFTMC HemeAutoSSHEMATOLOGYOrdered By: Mariana Doyle on 07-11-2022 Erythrocyte distribution width (RBC) [Ratio]14.5 %High10.9 - 14.2 %[facility] HemeAutoSSHematocrit (Bld) [Volume fraction]44.2 %Yswgln79.7 - 49.0 %[facility] HemeAutoSSHemoglobin (Bld) [Mass/Vol]15.0 g/tOYkzxbf31.5 - 17.5 gm/dLFTMC HemeAutoSSMCH (RBC) [Entitic mass]31.8 kfNnmkts22.0 - 34.0 pgFTMC HemeAutoSSMCHC (RBC) [Mass/Vol]34.0 g/hMSnkwvc97.4 - 36.0 gm/dLFTMC HemeAutoSSMCV (RBC) [Entitic vol]93.3 wORibbil92.0 - 100.0 fLFTMC HemeAutoSSPlatelet mean volume (Bld) [Entitic vol]9.4 fLNormal6.4 - 10.8 fLFTMC HemeAutoSSPlatelets (Bld) [#/Vol]191.0 E9/MNieegf473.0 - 500.0 E9/LFTMC HemeAutoSSRBC (Bld) [#/Vol]4.7 E12/LNormal4.3 - 5.9 E12/LFTMC HemeAutoSSWBC corrected for nucl RBC Auto (Bld) [#/Vol]6.8 E9/LNormal4.0 - 11.0 E9/LFTMC HemeAutoSSHep Func Panelon 07-11-2022 Albumin [Mass/Vol]3.8 g/dLNormal3.3-5.0Kn[facility] HospitalComment on above:Performed By: #### 0887093, 58779421, 7308680, 3970726, 7055387, 1728544, 84665225, 4620117, 9241269, 56427982 ####[address] [place], [place] [address]Vbsxpzh/Globulin (S) [Mass conc ratio]1.0Low1.1-2.2Fisher [facility] Samaritan HospitalComment on above:Performed By: #### 5734377, 88381827, 6153961, 2237549, 5791726, 1902073, 81795075, 3455784, 8203136, 59127961 ####[address] [address]QQF [Catalytic activity/Vol]92 Int._Unit/OFwjaod77-23TckwedKnox Community HospitalComment on above:Performed By: #### 4285100, 69223526, 9357775, 8730112, 0929598, 1701670, 57482770, 3980213, 8555313, 20884033 ####[address] [address]OKI No additional P-5'-P [Catalytic activity/Vol]37 Int._Unit/LNormal6-46Kn[facility] HospitalComment on above:Performed By: #### 3007125, 68863258, 0697718, 4131808, 2941264, 2100460, 29304211, 3255652, 0972529, 66393304 ####[address] [address]DPV [Catalytic activity/Vol]28 Int._Unit/LNormal5-43[facility] Comment on above:Performed By: #### 6084014, 36059591, 2230043, 0375390, 9792470, 8788420, 03772638, 3214185, 8627963, 88400290 ####[address] [address]Jjhpggifa [Mass/Vol]1.2 mg/dL High0.0-1.1FKettering Health HamiltonComment on above:Performed By: #### 5860707, 48993525, 2262052, 6791650, 9466953, 5883942, 76263038, 4604316, 6850600, 71267664 ####Angela [facility] [address] [place], [place] [address]Ctbwkdepo.direct [Mass/Vol]0.2 mg/dLNormal0.1-0.4FKettering Health HamiltonComment on above:Performed By: #### 6706943, 90668988, 8053906, 3999008, 6618384, 3085684, 37522323, 6098839, 8544420, 66554534 ####[facility] [address] [place] [address] Bilirubin.indirect [Mass or moles/Vol]1.0 mg/dLHigh0.1-0.9[facility] HospitalComment on above:Performed By: #### 6338076, 65780072, 9400915, 6880127, 3695087, 9458054, 21249461, 0182699, 3543420, 38238936 ####Julio César [facility] [address] [place], [place] [address]Vcokioyf (S) [Mass/Vol]3.7 g/dLNormal1.4-4.0Kn[facility] HospitalComment on above:Performed By: #### 6189474, 36854388, 4246917, 5978751, 3445077, 4797679, 14545561, 3603430, 9759413, 19170438 ####Angela [facility] [address] [place], [place] [address]Ickgeyk [Mass/Vol]7.5 g/dLNormal6.0-7.8[facility] HospitalComment on above:Performed By: #### 8654955, 52038725, 3224840, 0644673, 3005911, 0807228, 61029559, 6459388, 7978268, 15887832 ####[facility] [address] [place], [place] [address]Lakehbhnth - Microbiology and Antimicrobial susceptibilityOrdered By: Lupe Evon on 45-55-2232Ofqzjwaa identified Cx Nom (U)>100,000 cfu/ml Staphylococcus species Coagulase Positive [facility] Medical CenterMICRO OTHER TESTSOrdered By: Mariana Doyle on 92-77-8795Miyrrjhkmf A AgNegative (07/11/22 10:22 PM)NormalNegativeHASKELL [facility] Man SeroInfluenzae B AgNegative (07/11/22 10:22 PM)NormalNegativeHASKELL [facility] Man SeroRapid COV Int NEG CtlPass (07/11/22 10:22 PM)NormalHASKELL COUNTY [facility] Man SeroRapid COV Int POS CtlPass (07/11/22 10:22 PM)NormalHASKELL [facility] Man SeroSARS-CoV+SARS-CoV-2 (COVID-19) Ag IA.rapid Ql (Resp)Not Detected (07/11/22 10:22 PM)NormalNot DetectedHASKELL COUNTY COMM[facility] Man SeroMagnesiumon 93-45-5994Hnqfkflxg [Mass/Vol]1.4 mg/dLNormal1.3-2.4Fisher [facility] HospitalComment on above: Performed By: #### 8807118, 10990751, 9883396, 4923357, 7430968, 3623715, 14583694, 5741440, 1873762, 59213009 ####[facility] [address] [place], [place] [address]Svuq Screenon 00-06-4942Rnoyitwtegz Ab LA Ql (S)NegativeNormalNegativeFisher [facility]star [facility] Samaritan HospitalComment on above: Performed By: #### 8724310, 24676042, 2133534, 0866480, 1695857, 9070241, 49210285, 8819318, 1835680, 81704127 ####[facility] [address] [place], [place] [address]BA & PTTon 66-18-7641zJLZ Coag (PPP) [Time]30.5 second(s)Yommlw23.1-36.5FKettering Health HamiltonComment on above: Result Comment: Parameter 15 days - 4 weeks 1 - 5 months 6 - 11 months 1 - 5 years 6 - 10 years 11 - 17 years PTT Mean: 35.4 (27.6-45.6) Mean: 33.5 (24.8- 40.7) Mean: 32.4 (25.1-40.7) Mean: 31.6 (24.0-39.2) Mean: 31.6 (26.9-38.7) Mean: 31.0 (24.6-38.4) Pediatric Reference ranges were obtained from astudy by Colton Marie et alOsmel prepared from 1437 samples obtained at 7 different centers using Skype coagulation reagent and instrumentation as [facility]. Currently there are no coagulation studies available worldwide for children to 14 days, and no normal ranges. Heparin therapeutic range (represented by Anti-Factor Xa activity of 0.2 - 0.4 U/mL) corresponds to PTT of 56.6 - 109.0 sec.Performed By: #### 1897572, 96644671, 9154012, 9384234, 7938315, 5241281, 26013561, 9525212, 6105203, 51090643 ####Julio César [facility] [address] [place], [place] [address]FWV Coag (PPP) [Relative time]1.1 {INR}Invalid Interpretation CodeFisher Medstar Good Samaritan HospitalComment on above:Result Comment: INR results are specifically intended to assess patients stabilized on long-term Anticoagulation therapy suggested INR?s ?Less Intensive Anticoagulation? 2.0 ? 3.0Conventional Range 3.0 ? 4.5Performed By: #### 8994497, 39630749, 7007886, 0348515, 6153914, 4702149, 90975978, 5417534, 5966969, 43520805 ####[facility] [address] [place], [place] [address]WK Coag (PPP) [Time] 12.0 second(s)Normal9.4-12.5FKettering Health HamiltonComment on above:Result Comment: 15 days - 4 weeks 1 - 5 months 6 -11 months 1-5 years 6-10 years 11 -17 years Mean:11.2 (9.5-12.6) Mean: 11.0 (9.7-12.8) Mean: 11.0 (9.8-13.0) Mean: 11.3 (9.9-13.4) Mean: 11.7 (10.0-14.6) Mean: 11.8 (10.0 - 14.1) Pediatric Reference ranges were obtained from a study by mike Naranjo al. prepared from 1437 samples obtained at 7 different centers using the same coagulation reagent and instrumentation as [facility]. Currently there are no coagulation studies available worldwide for children to 14 days, and no normal ranges. Performed By: #### 5492982, 20512850, 3371743, 1193021, 9267449, 0786595, 87002501, 4180314, 4454900, 85298934 ####[facility] [address] [place] [address]Llj-Zitiwro Noteon 41-67-5713Xly- Arrival NoteNoUC [facility] HospitalRapid COVID Antigen ([facility])on 31-94-5435YLVZVUXM TO INTENSIVE CARE UNIT FOR CONDITION OF INTEREST:FIND:PT:NO [facility] HospitalComment on above:Performed By: #### [id number], [id number] ####[address] [address]KWCCRXNB IN A HEALTHCARE SETTING:FIND:PT:NONormalKnox Community HospitalComment on above:Performed By: #### 18718014, [id number] ####[address] [place], [place] [address]EBHOF TEST FOR CONDITION OF INTEREST:FIND:PT:YESNormalKnox Community HospitalComment on above:Performed By: #### 64502554, [id number] ####[address] [place], [place] [address]HNB SYMPTOMS RELATED TO CONDITION OF INTEREST:FIND:PT:YESNormSelect Medical Specialty Hospital - Cincinnati NorthComment on above:Performed By: #### [id number], [id number] ####[facility] [address] [place], [place] [address]CBSAQXZYGIML FOR CONDITION OF INTEREST:FIND:PT:NO NormalKnox Community HospitalComment on above:Performed By: #### 82117983, [id number] ####[facility] [address] [place], [place] [address]WQGXRBWDW STATUS:FIND:PT:NONormalKnox Community HospitalComment on above:Performed By: #### 47826480, [id number] ####[address] [place], [place] [address]GFWSXZS IN A CONGREGA CARE SETTING:FIND:PT:NONormalKnox Community HospitalComment on above:Performed By: #### 20772305, [id number] ####[address] [place], [place] [address]BNIBDCFKNqzqley By: Aura Qiu on 07-11-2022 Heterophile Ab LA Ql (S)Negative (07/11/22 8:19 PM)NormalNegativeHASKELL [facility] Man SeroTroponin 0 Hr.on 23-70-0962Ebdodxbo I.cardiac [Mass/Vol]4.40 pg/mLLow15.90-38.40Knox Community HospitalComment on above:Result Comment: The 95% CI (Confidence Interval) PPV (Positive Predictive Value) for myocardial infarction in females is 38 pg/mL, in males 51 pg/mL. The results should be used in conjunction with clinical conditions of myocardial infarction.(Access High Sensitivity Troponin I Instructions For Use, Savana Ruben, October 2017)Performed By: #### 9880451, 13907549, 3375576, 4430677, 4218064, 4834006, 50411414, 9012811, 1194243, 91150015 ####[facility] [address] [place], [place] [address]LKDOJZZYTKPfxyynx By: Mariana Doyle on 76-07-8846Vxjwlrrs LM Ql (Urine sed)1+ /HPFInvalid Interpretation CodeTrace/HPFHASKELL [facility] UA Auto SSBilirubin Ql (U)Negative (07/11/22 10:00 PM)NormalNegativeHASKELL [facility] UA Auto SSClarity (U)Clear (07/11/22 10:00 PM)NormalClearFTM UA Auto SSColor (U)Yellow (07/11/22 10:00 PM)NormalYellowFT UA Auto SSEpithelial cells.squamous LM.HPF (Urine sed) [#/Area]3-4 /HPFNormal0-2/HPFFT UA Auto SSGlucose Test strip (U) [Mass/Vol]2+ *ABN* (07/11/22 10:00 PM)Invalid Interpretation CodeNegativeHASKELL [facility] UA Auto SSHemoglobin Ql (U)Trace *ABN* (07/11/22 10:00 PM)Invalid Interpretation CodeNegativeHASKELL COUNTY [facility] UA Auto SSKetones (U) [Mass/Vol]Negative (07/11/22 10:00 PM)NormalNegativeHASKELL [facility] UA Auto SSLithium.plasma/Uehling.RBC (Bld) [Mass ratio]4-20 /HPFNormal0-3/HPFHASKELL COUNTY COMM[facility] UA Auto SSMucus Ql (Urine sed)1+ (07/11/22 10:00 PM)NormalHASKELL COUNTY COMM[facility] UA Auto SSNitrite Ql (U)Positive *ABN* (07/11/22 10:00 PM)Invalid Interpretation CodeNegativeHASKELL [facility] UA Auto SSpH (U)6.0 *NA* (07/11/22 10:00 PM)Invalid Interpretation Code5.0 - 9.0[facility] UA Auto SSProtein (U) [Mass/Vol]2+ *ABN* (07/11/22 10:00 PM)Invalid Interpretation CodeNegativeHASKELL [facility] [place] UA Auto SSSpecific gravity (U) [Rel density]1.020 *NA* (07/11/22 10:00 PM)Invalid Interpretation Code1.005 - 1.030[facility] [place] UA Auto SSUA Spec DescClean Catch (07/11/22 10:00 PM)NormalHASKELL COUNTY COMM[facility] [place] UA Auto SSUrobilinogen Qn (U)0.7316346 {Chintan'U}/dLNormal0.0 - 1.0 EU/dLHASKELL COUNTY COMM[facility] [place] UA Auto SSWBC Auto Ql (U)Negative (07/11/22 10:00 PM)NormalNegativeHASKELL [facility] [place] UA Auto SSWBC LM.HPF (Urine sed) [#/Area]6- 15 /HPFInvalid Interpretation Code0-5/HPFHASKELL COUNTY COMMUN[facility] UA Auto SSeGFRon 07-11-2022 GFR/1.73 sq M.predicted among non-blacks MDRD (S/P/Bld) [Vol rate/Area]91 mL/min/1.73 y0Qxazsd>=59Kn[facility] Community HospitalComment on above:Order Comment: Order added by Discern Expert.Result Comment: Chronic kidney disease could be indicated at eGFR's of less than 60 mL/min/1.73m2. Kidney failure is indicated at less than 15 mL/min/1.73m2.Performed By: #### [id number], [id number], [id number], [id number], [id number], [id number], [id number], [id number] ####Julio César [facility] [address] [place], [place] [address]POINT OF CARE GLUCOSEon [id number] [Mass/Vol]512 mg/dLCritically [id number] HospitalComment on above:Result Comment: Result Not ConfirmedPerformed By: #### SEDR #### [facility] [address] [place] [address] Dr. Travis Massey AUTO DIFFon [id number] #0.0 103/ulNormal0.0-0.1The [facility] CenterComment on above:Performed By: #### CBC #### [facility] [address] [place] [address] Dr. Travis Rankinphils/100 WBC (Bld)0.1 %Critically low0.2-2.0The [facility] CenterComment on above:Performed By: #### CBC #### [facility] [address] [place] [address] Dr. Travis Rdz #0.0 103/ulNormal0.0-0.7The [facility] CenterComment on above: Performed By: #### CBC #### [facility] [address] [address] [address] Travis Riveroosinophils/100 WBC (Bld)0.1 %Critically low0.9-7.0The [facility] on above:Performed By: #### CBC #### [facility] [address] [place] [address] Dr. Travis Riverorythrocyte distribution width (RBC) [Ratio]13.6 %Rgdczu47.0-15.0 White HospitalComment on above:Performed By: #### CBC #### [facility] [address] [place] [address] Dr. Travis SanchezHematocrit (Bld) [Volume fraction]41.6 %Critically low42.0-54.0 [facility] on above:Performed By: #### CBC #### [facility] [address] [place] [address] Dr. Travis SanchezHemoglobin (Bld) [Mass/Vol]13.9 g/dLCritically low14.0-18.0The [facility]ment on above:Performed By: #### CBC #### [facility] [address] [place] [address] Dr. Travis Kaur #0.05 10e3/ulCritically high0.00-0.03[facility] Comment on above:Performed By: #### CBC #### [facility] [address] [place] [address] Dr. Travis Kaur %0.5 %Normal0.0-0.5ThThe [facility] on above: Performed By: #### CBC #### [facility] [address] [place] [address] Dr. Travis StollH #1.1 103/ulCritically low1.2-3.8The [facility] Comment on above:Performed By: #### CBC #### [facility] [address] [place] [address] Dr. Travis Hernandezmphocytes/100 WBC (Bld)12.2 %Critically low20.5-60.0The [facility] HospitalComment on above:Performed By: #### CBC #### [facility] [address] [address] [address] Travis Martinez DIFF REQNONormalThe [facility] CenterComment on above: Performed By: #### CBC #### [facility] [address] [address] [address] Travis Glasgow (RBC) [Entitic mass]31.2 xjLfpvwr60.9-34.0The [facility] CenterComment on above:Performed By: #### CBC #### [facility] [address] [place] [address] Dr. Travis Glasgow (RBC) [Mass/Vol]33.4 g/zCGwzjdk81.9-35.2The [facility] CenterComment on above:Performed By: #### CBC #### [facility] [address] [place] [address] Dr. Travis Glasgow (RBC) [Entitic vol]93.3 eLGpzsax30.0-94.0The [facility] CenterComment on above:Performed By: #### CBC #### [facility] [address] [place] [address] Dr. Travis Fox #0.5 103/ulNormal0.3-0.8The [facility] on above:Performed By: #### CBC #### [facility] [address] [place] [address] Dr. Travis Smallsocytes/100 WBC (Bld)5.3 %Normal1.7-12.0[facility] Comment on above:Performed By: #### CBC #### [facility] [address] [place] [address] Dr. Travis Raza #7.5 103/ulCritically high1.4-6.5The [facility] Comment on above:Performed By: #### CBC #### [facility] [address] [place] [address] Dr. Travis Guidoutrophils/100 WBC (Bld)81.8 %Critically high43.0-75.0The [facility] CenterComment on above:Performed By: #### CBC #### [facility] [address] [address] [address] Travis SanchezPlatelet mean volume (Bld) [Entitic vol]10.6 fLNormal9.5-13.5The [facility] CenterComment on above:Performed By: #### CBC #### [facility] [address] [address] [address] Travis SanchezPLT255 103/riKhvqzz221-836Hkg [facility] CenterComment on above: Performed By: #### CBC #### [facility] [address] [address] [address] Travis SanchezRBC4.46 106/ulCritically low4.70-6.10The [facility] CenterComment on above:Performed By: #### CBC #### [facility] [address] [address] [address] Travis SanchezWBC9.1 103/ulNormal4.0-11.0The [facility] CenterComment on above: Performed By: #### CBC #### [facility] [address] [place] [address] Dr. Travis Jeffrey 24-27-4094AGY1.6 mg/dLCritically high<=1.0The [facility] CenterComment on above:Performed By: #### SEDR #### [facility] [address] [address] [address] Travis SanchezPROF CHEM 8 (BAS METB)on 41-94-3219Ydoif gap [Moles/Vol]13.2 mmol/LNormalThe [facility] CenterComment on above:Performed By: #### SEDR #### [facility] [address] [place] [address] Dr. Travis SanchezCalcium [Mass/Vol]9.3 mg/dLNormal8.5-10.1The [facility] Comment on above:Performed By: #### SEDR #### [facility] [address] [address] [address] Travis SanchezChloride [Moles/Vol]103 mmol/VWdqhcl30-384Zux [facility] Comment on above:Performed By: #### SEDR #### [facility] [address] [place] [address] Dr. Travis SanchezCO2 [Moles/Vol]24.3 mmol/VBxmxmv20.0-32.0The [facility] Comment on above:Performed By: #### SEDR #### [facility] [address] [place] [address] Dr. Travis SanchezCreatinine [Mass/Vol]0.72 mg/dLNormal0.70-1.30The [facility] CenterComment on above:Performed By: #### SEDR #### [facility] [address] [place] [address] Dr. Travis RiveroGFR-AF BAHRAINI>60Normal>=60The [facility] CenterComment on above:Performed By: #### SEDR #### [facility] [address] [place] [address] Dr. Travis RiveroGFR-NON AF BAHRAINI>60Normal>=60The [facility] CenterComment on above:Performed By: #### SEDR #### [facility] [address] [place] [address] Dr. Travis SanchezGlucose [Mass/Vol]290 mg/dLCritically shgr06-873Zvb [facility] CenterComment on above:Performed By: #### SEDR #### [facility] [address] [place] [address] Dr. Travis SanchezPotassium [Moles/Vol]4.5 mmol/LNormal3.5-5.1The [facility] Comment on above:Performed By: #### SEDR #### [facility] [address] [place] [address] Dr. Travis SanchezSodium [Moles/Vol]136 mmol/BWkwbeo242-198Qcl [facility] Comment on above:Performed By: #### SEDR #### [facility] [address] [place] [address] Dr. Travis SanchezUrea nitrogen [Mass/Vol]20.0 mg/dLCritically high7.0-18.0[facility]ment on above:Performed By: #### SEDR #### [facility] [address] [place] [address] Dr. Travis SanchezUrea nitrogen/Creatinine [Mass ratio]27.8 mg/mgNormalThACMC Healthcare System GlenbeighComment on above:Performed By: #### SEDR #### [facility] [address] [place] [address] Dr. Travis TrujilloC AUTO DIFFon 07-89-2626SLIA #0.0 103/ulNormal0.0-0.1The [facility] CenterComment on above:Performed By: #### SEDR #### [facility] [address] [place] [address] Dr. Travis SanchezBasophils/100 WBC (Bld)0.2 %Normal0.2-2.0[facility] Comment on above:Performed By: #### SEDR #### [facility] [address] [place] [address] Dr. Travis Rdz #0.0 103/ulNormal0.0-0.7The [facility] CenterComment on above: Performed By: #### SEDR #### [facility] [address] [place] [address] Dr. Travis Riveroosinophils/100 WBC (Bld)0.4 %Critically low0.9-7.0The [facility] CenterComment on above:Performed By: #### SEDR #### [facility] [address] [place] [address] Dr. Travis Riverorythrocyte distribution width (RBC) [Ratio]13.9 %Cofoay43.0-15.0 [facility] HospitalComment on above:Performed By: #### SEDR #### [facility] [address] [place] [address] Dr. Travis SanchezHematocrit (Bld) [Volume fraction]42.0 %Vmdkii45.0-54.0The [facility] CenterComment on above:Performed By: #### SEDR #### [facility] [address] [place] [address] Dr. Travis SanchezHemoglobin (Bld) [Mass/Vol]14.2 g/sULqejpz93.0-18.0The [facility] CenterComment on above:Performed By: #### SEDR #### [facility] [address] [place] [address] Dr. Travis Kaur #0.03 10e3/ulNormal0.00-0.03The [facility] CenterComment on above:Performed By: #### SEDR #### [facility] [address] [place] [address] Dr. Travis Kaur %0.4 %Normal0.0-0.5The [facility] CenterComharper university hospital on above: Performed By: #### SEDR #### [facility] [address] [place] [address] Dr. Travis StollH #1.7 103/ulNormal1.2-3.8The [facility] CenterComment on above:Performed By: #### SEDR #### [facility] [address] [place] [address] Dr. Travis Stollhocytes/100 WBC (Bld)20.7 %Bmtogw94.5-60.0The [facility] CenterComharper [facility] hospital on above:Performed By: #### SEDR #### [facility] [address] [place] [address] Dr. Travis GuallpaUAL DIFF REQNONormalThe [facility] CenterComment on above: Performed By: #### SEDR #### [facility] [address] [place] [address] Dr. Travis Glasgow (RBC) [Entitic mass]31.8 vdLmmknb51.9-34.0The [facility] CenterComment on above:Performed By: #### SEDR #### [facility] [address] [place] [address] Dr. Travis Glasgow (RBC) [Mass/Vol]33.8 g/hMHyjszh45.9-35.2The [facility] CenterComment on above:Performed By: #### SEDR #### [facility] [address] [address] [address] Travis GlasgowV (RBC) [Entitic vol]94.0 dFMvsvst25.0-94.0The [facility] CenterComment on above:Performed By: #### SEDR #### [facility] [address] [place] [address] Dr. Travis Fox #0.5 103/ulNormal0.3-0.8The [facility] CenterComment on above:Performed By: #### SEDR #### [facility] [address] [place] [address] Dr. Travis Smallsocytes/100 WBC (Bld)5.9 %Normal1.7-12.0The [facility] on above:Performed By: #### SEDR #### [facility] [address] [place] [address] Dr. Travis Raza #5.9 103/ulNormal1.4-6.5The [facility] CenterComment on above:Performed By: #### SEDR #### [facility] [address] [place] [address] Dr. Travis Guidoutrophils/100 WBC (Bld)72.4 %Vwlbpf81.0-75.0The [facility] CenterComment on above:Performed By: #### SEDR #### [facility] [address] [place] [address] Dr. Travis Luilet mean volume (Bld) [Entitic vol]11.3 fLNormal9.5-13.5The [facility] CenterComment on above:Performed By: #### SEDR #### [facility] [address] [place] [address] Dr. Travis SanchezPLT236 103/bmOutual671-843Hjd [facility] CenterComment on above: Performed By: #### SEDR #### [facility] [address] [place] [address] Dr. Travis SanchezRBC4.47 106/ulCritically low4.70-6.10The [facility] CenterComment on above:Performed By: #### SEDR #### [facility] [address] [address] [address] Travis SanchezWBC8.1 103/ulNormal4.0-11.0The [facility] CenterComment on above: Performed By: #### SEDR #### [facility] [address] [address] [address] Travis Jeffrey 32-51-4867WSC1.9 mg/dLCritically high<=1.0The [facility] on above:Performed By: #### SEDR #### [facility] [address] [address] [address] Travis SanchezCoswetad-19 PCR ([facility])on 62-59-3504JYKY-CoV-2 (COVID-19) RNA ECTOR+probe Ql (Unsp spec)Not detectedNormalNOT DETECTEDThe [facility] Comment on above:Result Comment: When diagnostic testing is negative, the [...] for this test is supported by the [place] of Health and Human Service's declaration that circumstances exist to justify the emergency use of in vitro diagnostics for the detection and/or diagnosis of the virus that causes COVID-19. This EUA will remain in effect for the duration of the COVID-19 declaration justifying emergency of IVDs, unless it is terminated or revoked by the FDA (after which the test may no longer be used).Performed By: #### CBC #### [facility] [address] [address] [address] Travis BORDEN WO CONon 62-42-6729JHE LSPINE WO CONHISTORY: Right- sided low back pain with radiculopathy for the past 2-3 weeks. The patient was found to have a large disc extrusion at the L4-L5 level on a recent CT scan. MRI LSPINE WO CON: 06/18/2022 9:29 AM EDT COMPARISON: [...] Electronically authenticated by: GERTRUDIS CHAUHAN Date: 2022-06-18 13:13[facility] HospitalPOINT OF CARE GLUCOSEon 74-62-5134Tcfzhza [Mass/Vol]352 mg/dL Critically afcm99-423RkiWhite HospitalComharper university hospital on above:Performed By: #### POCGLUC #### [facility] [address] [address] [address] Travis SanchezGlucose [Mass/Vol]183 mg/dLCritically wthg02-238MdbWhite HospitalComharper university hospital on above:Performed By: #### SEDR #### [facility] [address] [address] [address] Travis SanchezGlucose [Mass/Vol]178 mg/dLCritically vnzg87-122VnrWhite HospitalComment on above:Performed By: #### POCGLUC #### [facility] [address] [address] [address] Travis SanchezGlucose [Mass/Vol]252 mg/dLCritically yjxu75-484TavWhite HospitalComharper university hospital on above:Performed By: #### PSASC #### [facility] [address] [address] [address] Travis SanchezGlucose [Mass/Vol]272 mg/dLCritically bhdj78-237SnjOhioHealth [facility] General Hospital on above:Performed By: #### SEDR #### [facility] [address] [address] [address] Travis SanchezPROF CHEM 8 (BAS METB)on 67-76-7759Sedwo gap [Moles/Vol]15.3 mmol/LNormalWhite HospitalComharper university hospital on above:Performed By: #### SEDR #### [facility] [address] [address] [address] Travis SanchezCalcium [Mass/Vol]8.6 mg/dLNormal8.5-10.1[facility] Comment on above:Performed By: #### SEDR #### [facility] [address] [address] [address] Travis SanchezChloride [Moles/Vol]102 mmol/AQvrkow10-166Yht [facility] Comment on above:Performed By: #### SEDR #### [facility] [address] [address] [address] Travis SanchezCO2 [Moles/Vol]25.1 mmol/LIdgwcm51.0-32.0[facility] Comment on above:Performed By: #### SEDR #### [facility] [address] [address] [address] Travis SanchezCreatinine [Mass/Vol]0.84 mg/dLNormal0.70-1.30White HospitalComment on above:Performed By: #### SEDR #### [facility] [address] [address] [address] Travis RiveroGFR-AF BAHRAINI>60Normal>=60White HospitalComment on above:Performed By: #### SEDR #### [facility] [address] [address] [address] Travis RiveroGFR-NON AF BAHRAINI>60Normal>=60The [facility] CenterComment on above:Performed By: #### SEDR #### [facility] [address] [address] [address] Travis SanchezGlucose [Mass/Vol]348 mg/dLCritically pgfz81-516Fir [facility] CenterComment on above:Performed By: #### SEDR #### [facility] [address] [address] [address] Travis SanchezPotassium [Moles/Vol]4.4 mmol/LNormal3.5-5.1[facility] Comment on above:Performed By: #### SEDR #### [facility] [address] [address] [address] Travis SanchezSodium [Moles/Vol]138 mmol/TOxobcl808-559Edo [facility] Comment on above:Performed By: #### SEDR #### [facility] [address] [address] [address] Travis Whitten nitrogen [Mass/Vol]14.0 mg/dLNormal7.0-18.0The [facility] CenterComment on above:Performed By: #### SEDR #### [facility] [address] [address] [address] Travis SanchezUrea nitrogen/Creatinine [Mass ratio]16.7 mg/mgNormalThe [facility] CenterComment on above:Performed By: #### SEDR #### [facility] [address] [address] [address] Travis SanchezSED RATE WESTERGRENon 85-66-1691SOY RATE35 mm/hrCritically high <=15The [facility] CenterComment on above:Performed By: #### SEDR #### [facility] [address] [address] [address] Travis SanchezCT LSPINE WO CONon 27-44-6633OL LSPINE WO CONEXAM: CT LSPINE WO CON HISTORY: Right-sided back pain COMPARISON: Lumbar spine x-rays 04/14/2017 TECHNIQUE: Axial CT imaging is performed through the lumbar spine. Sagittal and coronal reformatted/reconstructed sequences were additionally performed. FINDINGS: Maintenance of [...] Electronically authenticated by: ELIUD HERNANDEZ Date: 2022-06-12 18:44NoMer[address] Charles HospitalAmbulatory Visit Summaryon 33-13-0521Mbywluvawi Visit Summary [facility] HospitalPatient Educationon 68-84-2921Xeloyfh Education [facility] HospitalUrology Office/Clinic Noteon 34-79-8876Dwsdaqq Office/Clinic NoteNormSelect Medical Specialty Hospital - Cincinnati NorthComment on above:Result Comment: Electronically Signed By: MARIANA BRIGGS PA-C\.br\Date and Time Signed: 06/11/2308:07 EDT\.br\Electronically Co-Signed By: Alannah Ragland MA\.br\Date and Time Co-Signed: 06/11/22 09:01 EDTCBC AUTO DIFFon 73-94-8046ZTWE #0.1 103/ulNormal0.0-0.1The [facility] CenterComment on above:Performed By: #### CBC #### [facility] [address] [address] [address] Travis SanchezBasophils/100 WBC (Bld)0.4 %Normal0.2-2.0[facility] Comment on above:Performed By: #### CBC #### [facility] [address] [address] [address] Travis Rdz #0.0 103/ulNormal0.0-0.7The [facility] CenterComment on above: Performed By: #### CBC #### [facility] [address] [address] [address] Travis Riveroosinophils/100 WBC (Bld)0.3 %Critically low0.9-7.0White HospitalComment on above:Performed By: #### CBC #### [facility] [address] [address] [address] Travis Mcintyrethrocyte distribution width (RBC) [Ratio]14.3 %Xencbs00.0-15.0 White HospitalComment on above:Performed By: #### CBC #### [facility] [address] [address] [address] Travis SanchezHematocrit (Bld) [Volume fraction]41.2 %Critically low42.0-54.0 [facility] HospitalComment on above:Performed By: #### CBC #### [facility] [address] [place] [address] Dr. Travis SanchezHemoglobin (Bld) [Mass/Vol]13.9 g/dLCritically low14.0-18.0The [facility] CenterComment on above:Performed By: #### CBC #### [facility] [address] [place] [address] Dr. Travis Kaur #0.05 10e3/ulCritically high0.00-0.03The [facility] Comment on above:Performed By: #### CBC #### [facility] [address] [place] [address] Dr. Travis Kaur %0.4 %Normal0.0-0.5The [facility] CenterComment on above: Performed By: #### CBC #### [facility] [address] [place] [address] Dr. Travis Marrero #1.2 103/ulNormal1.2-3.8The [facility] CenterComment on above:Performed By: #### CBC #### [facility] [address] [place] [address] Dr. Travis Stollhocytes/100 WBC (Bld)8.9 %Critically low20.5-60.0The [facility] CenterComment on above:Performed By: #### CBC #### [facility] [address] [place] [address] Dr. Travis Martinez DIFF REQNONormalThe [facility] CenterComment on above: Performed By: #### CBC #### [facility] [address] [place] [address] Dr. Travis Coats (RBC) [Entitic mass]31.5 ozDmpird78.9-34.0The [facility] CenterComment on above:Performed By: #### CBC #### [facility] [address] [place] [address] Dr. Travis Glasgow (RBC) [Mass/Vol]33.7 g/fSZatxhe91.9-35.2The [facility] CenterComment on above:Performed By: #### CBC #### [facility] [address] [place] [address] Dr. Yilan ChangMCV (RBC) [Entitic vol]93.4 tXCvndta76.0-94.0The [facility] CenterComment on above:Performed By: #### CBC #### [facility] [address] [place] [address] Dr. Travis Fox #1.0 103/ulCritically high0.3-0.8The [facility] Comment on above:Performed By: #### CBC #### [facility] [address] [place] [address] Dr. Travis Smallsocytes/100 WBC (Bld)7.3 %Normal1.7-12.0[facility] Comment on above:Performed By: #### CBC #### [facility] [address] [place] [address] Dr. Travis Raza #11.4 103/ulCritically high1.4-6.5ThACMC Healthcare System Glenbeigh Comment on above:Performed By: #### CBC #### [facility] [address] [place] [address] Dr. Travis Guidoutrophils/100 WBC (Bld)82.7 %Critically high43.0-75.0White HospitalComment on above:Performed By: #### CBC #### [facility] [address] [place] [address] Dr. Travis Luilet mean volume (Bld) [Entitic vol]11.0 fLNormal9.5-13.5The [facility] CenterComment on above:Performed By: #### CBC #### [facility] [address] [place] [address] Dr. Travis DodgeT262 103/ghDaywub287-955Qaw [facility] CenterComment on above: Performed By: #### CBC #### [facility] [address] [place] [address] Dr. Travis SanchezRBC4.41 106/ulCritically low4.70-6.10The [facility] CenterComment on above:Performed By: #### CBC #### [facility] [address] [place] [address] Dr. Travis SanchezWBC13.8 103/ulCritically high4.0-11.0The [facility] CenterComment on above:Performed By: #### CBC #### [facility] [address] [place], [place] [address] Dr. Travis SanchezCRPon 63-29-6176KFQ33.3 mg/dLCritically high<=1.0The [facility] CenterComment on above:Performed By: #### PSASC #### [facility] [address] [place], [place] [address] Dr. Travis SanchezCT FACIAL BONES WO CONon 95-86-0208FM FACIAL BONES WO CON INDICATION: 31 years old; Male. Headache. Right-sided facial tenderness for [...] intraparenchymal or extra-axial hemorrhage. Normal victor/white differentiation. VENTRICLES/EXTRA-AXIAL SPACES: Normal for patient's age. SINUSES/MASTOIDS: The [...] Electronically authenticated by: SEGUN GALLEGOS Date: 2022-05-24 00:14[facility] HospitalLACTATE/LACTIC ACIDon 13-43-6321Fqxzwdl [Moles/Vol]1.3 mmol/L Normal0.4-2.0White HospitalComment on above:Performed By: #### CBC #### [facility] [address] [place] [address] Dr. Travis SanchezPOINT OF CARE GLUCOSEon 04-35-0054Genkard [Mass/Vol]208 mg/dL Critically wqyk94-739YicWhite HospitalComment on above:Performed By: #### PSASC #### [facility] [address] [place] [address] Dr. Travis SanchezPROF CHEM 8 (BAS METB)on 49-78-0516Xjywz gap [Moles/Vol]13.9 mmol/LNormalThe [facility] CenterComment on above:Performed By: #### PSASC #### [facility] [address] [address] [address] Travis SanchezCalcium [Mass/Vol]8.8 mg/dLNormal8.5-10.1[facility] Comment on above:Performed By: #### PSASC #### [facility] [address] [address] [address] Travis SanchezChloride [Moles/Vol]98 mmol/TQqndub02-784RseWhite Hospital Comment on above:Performed By: #### PSASC #### [facility] [address] [address] [address] Travis SanchezCO2 [Moles/Vol]25.9 mmol/BNwzymf00.0-32.0The [facility] Comment on above:Performed By: #### PSASC #### [facility] [address] [address] [address] Travis SanchezCreatinine [Mass/Vol]0.74 mg/dLNormal0.70-1.30The [facility] CenterComment on above:Performed By: #### PSASC #### [facility] [address] [address] [address] Travis RiveroGFR-AF BAHRAINI>60Normal>=60The [facility] CenterComment on above:Performed By: #### PSASC #### [facility] [address] [place] [address] Dr. Travis RiveroGFR-NON AF BAHRAINI>60Normal>=60The [facility] Hospitalment on above:Performed By: #### PSASC #### [facility] [address] [address] [address] Travis SanchezGlucose [Mass/Vol]203 mg/dLCritically moiw87-009Fgw [facility] on above:Performed By: #### PSASC #### [facility] [address] [address] Dr. Travis SanchezPotassium [Moles/Vol]3.8 mmol/LNormal3.5-5.1[facility] Comment on above:Performed By: #### PSASC #### [facility] [address] [address] [address] Travis SanchezSodium [Moles/Vol]134 mmol/LCritically ggi858-889Pyo [facility] on above:Performed By: #### PSASC #### [facility] [address] [address] [address] Travis SanchezUrea nitrogen [Mass/Vol]9.0 mg/dLNormal7.0-18.0[facility] Hospitalment on above:Performed By: #### PSASC #### [facility] [address] [place], [place] [address] Dr. Travis SanchezUrea nitrogen/Creatinine [Mass ratio]12.2 mg/mgNoMercy Health St. Charles HospitalComment on above:Performed By: #### PSASC #### [facility] [address] [place], [place] [address] Dr. Travis SanchezSED RATE WESTERGRENon 09-05-4127EIU RATE61 mm/hrCritically high <=15The [facility] CenterComment on above:Performed By: #### SEDR #### [facility] [address] [place], [place] [address] Dr. Travis SanchezGlucose Glucometer ([facility]) [Mass/Vol]Ordered By: Dell Kim on 60-12-7816Zrvmqpk [Mass/Vol]144 mg/dLRegency Hospital Cleveland EastComment on above:Random Glucose Reference Range is dependent on time and content of last meal. Glucose of more than 200 mg/dL in a nonstressed, ambulatory subject supports the diagnosis of Diabetes Mellitus.Glucose Poct Glucometerson 16-98-5361Yztzkcd [Mass/Vol]144 mg/dLNoAdena Pike Medical Center Comment on above:Result Comment: Random Glucose Reference Range is dependent on time and content of last meal. Glucose of more than 200 mg/dL in a nonstressed, ambulatory subject supports the diagnosis of Diabetes Mellitus. PERFORMED BY: [facility] [address] [place] [address] PATHOLOGIST [employer] JOSSELYN ROSEN M.D.Performed By: #### GLULS #### Point of Care testing ,Glucose Poct Glucometerson 59-11-6368Sxpxxoo [Mass/Vol]143 mg/dLNoAdena Pike Medical CenterComment on above:Result Comment: Random Glucose Reference Range is dependent on time and content of last meal. Glucose of more than 200 mg/dL in a nonstressed, ambulatory subject supports the diagnosis of Diabetes Mellitus. PERFORMED BY: [facility] [address] [place] [address] PATHOLOGIST [employer] JOSSELYN ROSEN M.D.Performed By: #### GLULS #### Point of Care testing ,Cholesterol [Mass/volume] in Serum or PlasmaOrdered By: Dell Kim on 41-91-6053Tekfbfcpjxw [Mass/Vol]244 mg/rU919-967EtjxxheiuRegency Hospital Cleveland EastComment on above:Chol less than 200 mg/dl low riskChol 201-239 mg/dl borderline riskChol 240 mg/dl and greater high riskCholesterol in LDL Calc [Mass/Vol]Ordered By: Dell Kim on 51-18-1492Bjxgawetadp in LDL [Mass/Vol] [facility] CenterComment on above:Test not performed Cholesterol in VLDL Calc [Mass/Vol]Ordered By: Dell Kim on 04-02-2022 Cholesterol in VLDL [Mass/Vol][facility] County Medical CenterComment on above:Test not performedGlucose Poct Glucometerson 33-18-2626Otsfckb9Jnp4: Cleaned MeterNoAdena Pike Medical CenterComment on above:Result Comment: PERFORMED BY: [place] [id number] PATHOLOGIST [employer] JOSSELYN ROSEN M.D.Performed By: #### GLULS ####Point of Care testing,Glucose [Mass/Vol]239 mg/dLSt. Elizabeth HospitalComment on above: Result Comment: Random Glucose Reference Range is dependent on time and content of last meal. Glucose of more than 200 mg/dL in a nonstressed, ambulatory subject supports the diagnosis of Diabetes Mellitus.Performed By: #### GLULS ####Point of Care testing,LDL Cholesterol Measuredon 70-14-1106AZA Cholesterol Dsslclmt951 mg/dLHigh0-100 [facility] Cleveland EastComment on above:Result Comment: LDL ATP III CLASSIFICATION LDL less than 100 mg/dL Optimal LDL 100-129 mg/dL Near or above optimal LDL 130-159 mg/dL Borderline high LDL 160-189 mg/dL High LDL greater than 189 mg/dL Very highPerformed By: #### LIPID, [id number], TSH3 wRFLX, LDLD #### [address] [address] USALipid Panelon 57-52-6288Wpffkkxfqnp [Mass/Vol]244 mg/dL Ybkc731-707MrgfflqkzRegency Hospital Cleveland EastComment on above:Result Comment: Chol less than 200 mg/dl low risk Chol 201-239 mg/dl borderline risk Chol 240 mg/dl and greater high riskPerformed By: #### LIPID, [id number], TSH3 wRFLX, LDLD #### [facility] [address] [place] [address] USACholesterol in HDL [Mass/Vol]29 mg/yQOdsefw53-47NajtkbdkzRegency Hospital Cleveland EastComment on above:Result Comment: HDL CHOL ATP-III CLASSIFICATION Cardiovascular Risk HDL > or equal to 60 mg/dL LOW HDL < 40 mg/dL HIGHPerformed By: #### LIPID, [id number], TSH3 wRFLX, LDLD #### [facility] [address] [id number] USACholesterol.total/Cholesterol in HDL [Mass ratio]8.4 {ratio}Normal<5.0[facility] Hospital Cleveland EastComment on above:Performed By: #### LIPID, [id number], TSH3 wRFLX, LDLD #### [facility] [address] [place] [address] USALDL Cholesterol,CalculatedNot performedNormal0-100 [facility] Cleveland EastComment on above:Performed By: #### LIPID, [id number], TSH3 wRFLX, LDLD #### [facility] [address] [id number] USATriglyceride w/Evdezj348 mg/tGZvqm75-543TukjsglrnRegency Hospital Cleveland EastComment on above:Result Comment: TRIG ATP III CLASSIFICATION TRIG less than 150 mg/dL Normal TRIG 150-199 mg/dL Borderline high TRIG 200-500 mg/dL High TRIG greater than 500 mg/dL Very high Standard traceable to the Center for Disease Conrtrol and Prevention (CDC) test method. If the triglyceride result is greater than 400, LDLC and related calculations cannot be calculated and resulted.Performed By: #### LIPID, [id number], TSH3 wRFLX, LDLD #### [facility] [address] [place] [address] USAVLDL CHOLESTEROLNot performedNormWilson Memorial HospitalComment on above:Performed By: #### LIPID, [id number], TSH3 wRFLX, LDLD #### [facility] [address] [place] [address] USANo Panel InformationOrdered By: Dell Kim on 66-39-2525Ctjttlt Glucose CommentGlu2: cleaned [facility]25-Hydroxy Vitamin D Total< 7.0 ng/fU17-141VndeqdxisRegency Hospital Cleveland EastComment on above:VITAMIN D STATUS 25([place])VITAMIN D RANGE (ng/mL) Deficient <20 Insufficient 20 to <31Ckbajtllmx42 to 100Reference: Rosy MF,Byron MENDOZA, Rajinder GALDAMEZ, et al. Evaluation,treatment, and prevention of vitamin D deficiency; an Endocrine Society clinical practice guideline. JCEM. 2010; 96 (7):1911-30.Serum or plasma cholesterol in LDL measurement (mass/volume)Ordered By: Dell Kim on 92-42-8900Phbygetbiyk in LDL [Mass/Vol]122 mg/dL0-100 [facility] Cleveland EastComment on above:LDL ATP III CLASSIFICATIONLDL less than 100 mg/dL OptimalLDL 100-129 mg/dL Near or above qefvlpfUZM054-681 mg/dL Borderline highLDL 160-189 mg/dL HighLDL greater than 189 mg/dL Very high Serum or plasma high density lipoprotein (HDL) cholesterol measurementOrdered By: Dell Kim on 17-21-7031Vzmrtlwdfhh in HDL [Mass/Vol]29 mg/dL29-71 [facility] Cleveland EastComment on above:HDL CHOL ATP-III CLASSIFICATION Cardiovascular RiskHDL > or equal to 60 mg/dL LOWHDL < 40 mg/dL HIGHSerum or plasma total cholesterol/high density lipoprotein (HDL) cholesterol mass ratOrdered By: Dell Kim on 35-68-0894Oqpldcxxdcy.total/Cholesterol in HDL [Mass ratio]8.4 {ratio}<5.0Reg[facility] Hospital Cleveland EastTS DL <= 0.005 mIU/L QnOrdered By: Dell Kim on 86-37-2745YAC Qn1.06 m[IU]/L 0.45-5.33[facility] Hospital Cleveland EastThyroid Stim Hormone w/Rflxon 19-33-9522Elxxxpw Stim Hormone w/Rflx1.06 u[iU]/mLNormal0.45-5.33[facility] Cleveland EastComment on above:Performed By: #### LIPID, [id number], TSH3 wRFLX, LDLD #### [facility] [address] [place] [address] USATriglyceride [Mass/volume] in Serum or PlasmaOrdered By: Dell Kim on 25-62-9039Sgtrjbayhulk [Mass/Vol]622 mg/jJ93-967LylzdwkksRegency Hospital Cleveland EastComment on above:If the triglyceride result is greater than 400, LDLC and related calculations cannot be calculated and resulted.TRIG ATP III CLASSIFICATIONTRIG less than 150 mg/dL NormalTRIG 150-199 mg/dL BorderlinehighTRIG 200-500 mg/dL High TRIG greater than 500 mg/dL Very highStandard traceable to the Center for Disease Conrtrol and Prevention (CDC) test method.Vitamin D 25 Hydroxy Totalon 89-26-8797Olxfvwd D 25 Hydroxy Total< 7.4Puq97-609JuiqbzptgRegency Hospital Cleveland EastComment on above:Result Comment: VITAMIN D STATUS 25([place])VITAMIN D RANGE (ng/mL) Deficient <20 Insufficient 20 to <30 Sufficient 30 to 100 Reference: Rosy MF,Byron NC, Rajinder GALDAMEZ, et al. Evaluation,treatment, and prevention of vitamin D deficiency; an Endocrine Society clinical practice guideline. JCEM. 2010; 96(7):1911-30. PERFORMED BY: [facility] [address] [place] [address] PATHOLOGIST [employer]IST JOSSELYN ROSEN M.D.Performed By: #### LIPID, [id number], TSH3 wRFLX, LDLD #### [facility] [address] [place] [address] USAACETAMINOPHENon 27-97-7767Ijkgbbnuptdqr [Mass/Vol]ug/mL Critically low10.0-30.0White HospitalComment on above:Performed By: #### CVDTBH #### [facility] [address] [place] [address] Dr. Travis Massey AUTO DIFFon 84-31-6364DAEG #0.1 103/ulNormal0.0-0.1The [facility] CenterComment on above:Performed By: #### CBC #### [facility] [address] [place] [address] Dr. Travis SanchezBasophils/100 WBC (Bld)0.8 %Normal0.2-2.0[facility] Comment on above:Performed By: #### CBC #### [facility] [address] [place] [address] Dr. Travis Rdz #0.1 103/ulNormal0.0-0.7The [facility] CenterComment on above: Performed By: #### CBC #### [facility] [address] [place] [address] Dr. Travis Riveroosinophils/100 WBC (Bld)1.3 %Normal0.9-7.0[facility] Comment on above:Performed By: #### CBC #### [facility] [address] [place] [address] Dr. Travis Riverorythrocyte distribution width (RBC) [Ratio]14.1 %Bphhly87.0-15.0 The [facility] CenterComment on above:Performed By: #### CBC #### [facility] [address] [place] [address] Dr. Travis SanchezHematocrit (Bld) [Volume fraction]47.9 %Jycowj43.0-54.0The [facility] CenterComment on above:Performed By: #### CBC #### [facility] [address] [place] [address] Dr. Travis SanchezHemoglobin (Bld) [Mass/Vol]15.4 g/yXUdigdc67.0-18.0The [facility] CenterComment on above:Performed By: #### CBC #### [facility] [address] [place] [address] Dr. Travis Kaur #0.03 10e3/ulNormal0.00-0.03The [facility] CenterComment on above:Performed By: #### CBC #### [facility] [address] [place] [address] Dr. Travis Kaur %0.4 %Normal0.0-0.5The [facility] CenterComment on above: Performed By: #### CBC #### [facility] [address] [place] [address] Dr. Travis Marrero #1.7 103/ulNormal1.2-3.8The [facility] CenterComment on above:Performed By: #### CBC #### [facility] [address] [place] [address] Dr. Travis Stollhocytes/100 WBC (Bld)22.1 %Ffpevx28.5-60.0The [facility] CenterComment on above:Performed By: #### CBC #### [facility] [address] [place] [address] Dr. Travis GuallpaUAL DIFF REQNONormalThe [facility] CenterComment on above: Performed By: #### CBC #### [facility] [address] [place] [address] Dr. Travis Coats (RBC) [Entitic mass]31.5 nvPkmbuj31.9-34.0The [facility] CenterComment on above:Performed By: #### CBC #### [facility] [address] [place] [address] Dr. Travis Glasgow (RBC) [Mass/Vol]32.2 g/fXJdyxwk53.9-35.2The [facility] CenterComment on above:Performed By: #### CBC #### [facility] [address] [place] [address] Dr. Travis Thompson (RBC) [Entitic vol]98.0 fLCritically high80.0-94.0The [facility] CenterComment on above:Performed By: #### CBC #### [facility] [address] [place] [address] Dr. Travis Fox #0.5 103/ulNormal0.3-0.8The [facility] CenterComment on above:Performed By: #### CBC #### [facility] [address] [place] [address] Dr. Travis Smallsocytes/100 WBC (Bld)6.2 %Normal1.7-12.0[facility] Comment on above:Performed By: #### CBC #### [facility] [address] [place] [address] Dr. Travis Raza #5.3 103/ulNormal1.4-6.5The [facility] CenterComment on above:Performed By: #### CBC #### [facility] [address] [place] [address] Dr. Travis Guidoutrophils/100 WBC (Bld)69.2 %Hhwgqy27.0-75.0The [facility] CenterComment on above:Performed By: #### CBC #### [facility] [address] [place] [address] Dr. Travis Luilet mean volume (Bld) [Entitic vol]11.0 fLNormal9.5-13.5The [facility] CenterComment on above:Performed By: #### CBC #### [facility] [address] [place] [address] Dr. Travis SanchezPLT314 103/npYgdbsh118-008Jcg [facility] CenterComment on above: Performed By: #### CBC #### [facility] [address] [place] [address] Dr. Travis ChandlerC4.89 106/ulNormal4.70-6.10The [facility] CenterComment on above:Performed By: #### CBC #### [facility] [address] [place] [address] Dr. Travis SanchezWBC7.6 103/ulNormal4.0-11.0The [facility] CenterComment on above: Performed By: #### CBC #### [facility] [address] [place] [address] Dr. Travis Back URINEon 61-58-9757CCMANGW URINECulture Observations: NO GROWTH.NormalWhite HospitalComment on above:Performed By: #### CVDTBH #### [facility] [address] [place] [address] Dr. Travis SanchezCovid-19 PCR ([facility])on 44-62-2911WXBV-CoV-2 (COVID-19) RNA ECTOR+probe Ql (Unsp spec)Not detectedNormalNOT DETECTEDThe [facility] Comment on above:Result Comment: When diagnostic testing is negative, the [...] for this test is supported by the [place] of Health and Human Service's declaration that circumstances exist to justify the emergency use of in vitro diagnostics for the detection and/or diagnosis of the virus that causes COVID-19. This EUA will remain in effect for the duration of the COVID-19 declaration justifying emergency of IVDs, unless it is terminated or revoked by the FDA (after which the test may no longer be used).Performed By: #### CVDTBH #### [facility] [address] [place] [address] Dr. Travis SanchezDRUG SCREEN RAPID (URINE)on 25-09-3390YLPTkrthquqBaqpmiFOZYUXWY White HospitalComment on above:Performed By: #### CBC #### [facility] [address] [place] [address] Dr. Travis SanchezBARNegativeNormalNEGATIVEWhite HospitalComment on above: Performed By: #### CBC #### [facility] [address] [place] [address] Dr. Travis SanchezBUPNegativeNormalNEGATIVEWhite HospitalComment on above: Performed By: #### CBC #### [facility] [address] [place] [address] Dr. Travis CarlinZONegativeNormalNEGATIVEWhite HospitalComment on above: Performed By: #### CBC #### [facility] [address] [place] [address] Dr. Travis SanchezCOCNegativeNormalNEGATIVEWhite HospitalComharper university hospital on above: Performed By: #### CBC #### [facility] [address] [place] [address] Dr. Travis PulliamParkview HealthComment on above: Result Comment: AMP (Amphetamine): 500ng/mL, BAR (Barbituates): 200 ng/mL, BZO (Benzodiazepines): 150 ng/mL, BUP (Buprenorphine): 10 ng/mL, JESUS (Cocaine): 150 ng/mL, mAMP (Methamphetamine): 500 ng/mL, MTD (Methadone): 200 ng/mL, OPI (Opiates): 100 ng/mL, OXY (Oxycodone): 100 ng/mL, PCP (Phencyclidine): 25 ng/mL, PPX (Propoxyphene): 300 ng/mL, THC (Cannabinoids): 50 ng/mL, TCA (Trycyclic Antidepressants): 300 ng/mLPerformed By: #### CBC #### [facility] [address] [place] [address] Dr. Travis SanchezDRUG CUT HEADERDRUG CLASS TEST SYSTEM CUT-OFF CONCENTRATIONS ARE FOLLOWS:NormalThe [facility] CenterComharper university hospital on above:Performed By: #### CBC #### [facility] [address] [place] [address] Dr. Travis SanchezmAMPNegativeNormalNEGATIVEWhite HospitalComharper university hospital on above: Performed By: #### CBC #### [facility] [address] [place] [address] Dr. Travis SanchezMTDNegativeNormalNEGATIVEWhite HospitalComharper university hospital on above: Performed By: #### CBC #### [facility] [address] [place] [address] Dr. Travis EscamillaINegativeNormalNEGATIVEMansfield Hospitalment on above: Performed By: #### CBC #### [facility] [address] [address] [address] Travis SanchezOXYNegativeNormalNEGATIVEOhioHealth Marion General Hospital on above: Performed By: #### CBC #### [facility] [address] [address] [address] Travis SanchezPCPNegativeNormalNEGATIVEWhite HospitalComharper university hospital on above: Performed By: #### CBC #### [facility] [address] [address] [address] Travis SanchezPPXNegativeNormalNEGATIVEOhioHealth Marion General Hospital on above: Performed By: #### CBC #### [facility] [address] [address] [address] Travis SanchezTCANegativeNormalNEGATIVEOhioHealth Marion General Hospital on above: Performed By: #### CBC #### [facility] [address] [address] [address] Travis SanchezTHCNegativeNormalNEGATIVEOhioHealth Marion General Hospital on above: Performed By: #### CBC #### [facility] [address] [address] [address] Travis Garcia URINE PROFILEon 90-72-0593Vgjzkephg Ql (U)NegativeNormal NEGATIVEOhioHealth Marion General Hospital on above:Performed By: #### CBC #### [facility] [address] [place] [address] Dr. Travis Glez (U)CLEARNormalCLEAROhioHealth Marion General Hospital on above: Performed By: #### CBC #### [facility] [address] [address] [address] Travis Valiente (U)YELLOWNormalYELLOWOhioHealth Marion General Hospital on above: Performed By: #### CBC #### [facility] [address] [address] [address] Travis Nair micrscopic examination will be performed if indicated. NormalWhite HospitalComharper university hospital on above:Performed By: #### CBC #### [facility] [address] [address] [address] Travis SanchezGlucose Ql (U)>1000AbnormalNEGATIVEWhite HospitalComment on above:Performed By: #### CBC #### [facility] [address] [address] [address] Travis SanchezHemoglobin Ql (U)NegativeNormalNEGOhio State Harding Hospital Comment on above:Performed By: #### CBC #### [facility] [address] [address] [address] Travis SanchezKetones Ql (U)TRACEAbnormalNEGATIVEWhite HospitalComment on above:Performed By: #### CBC #### [facility] [address] [place] [address] Dr. Travis SanchezLEUKOCYTESNegativeNormalNEGOhio State Harding HospitalComment on above:Performed By: #### CBC #### [facility] [address] [place] [address] Dr. Travis SanchezNitrite Ql (U)NegativeNormalNEGATIVEWhite HospitalComment on above:Performed By: #### CBC #### [facility] [address] [place] [address] Dr. Travis SanchezpH (U)5.5 [pH]Normal5-9White HospitalComment on above: Performed By: #### CBC #### [facility] [address] [address] [address] Travis SanchezProtein (U) [Mass/Vol]100 mg/dLAbnormalNEGATIVE/ TRACEWhite HospitalComment on above:Performed By: #### CBC #### [facility] [address] [place] [address] Dr. Travis SanchezSPEC GRAVITY>=1.627Llgsgtcn2.005-<=1.025[facility] Comment on above:Performed By: #### CBC #### [facility] [address] [place] [address] Dr. Travis Preston MICRO INDINDICATEDNormalThACMC Healthcare System GlenbeighComment on above: Performed By: #### CBC #### [facility] [address] [place] [address] Dr. Travis Lackeybilinogen Qn (U)0.2 {Chintan'U}/dLNormal0.2 - 1.0The [facility] CenterComment on above:Performed By: #### CBC #### [facility] [address] [place] [address] Dr. Travis Hemphill (BLD ALC)on 23-41-6002YYB NOTENOTE: 80 mg/dl is the legal limit for a blood alcohol levelNoMercy Health St. Charles HospitalComment on above: Performed By: #### ETH #### [facility] [address] [place] [address] Dr. Travis Ramananol [Mass/Vol]mg/dLNoMercy Health St. Charles HospitalComment on above:Performed By: #### ETH #### [facility] [address] [place] [address] Dr. Travis Scott 14(COMP METB)on 57-14-8072Oyyhkdd [Mass/Vol]3.5 g/dLNormal 3.4-5.0The [facility] CenterComment on above:Performed By: #### CVDTBH #### [facility] [address] [place] [address] Dr. Travis SanchezAlbumin/Globulin [Mass ratio]0.9 {ratio}NormalThe [facility] CenterComment on above:Performed By: #### CVDTBH #### [facility] [address] [place] [address] Dr. Travis Fleming [Catalytic activity/Vol]98 U/IKmcvni66-240Org [facility] CenterComment on above:Performed By: #### CVDTBH #### [facility] [address] [place] [address] Dr. Travis Pringle [Catalytic activity/Vol]36 U/XLnwptm59-91Vjr [facility] CenterComment on above:Performed By: #### CVDTBH #### [facility] [address] [place] [address] Dr. Yilan ChangAnion gap [Moles/Vol]16.8 mmol/LNormalWhite Hospital Comment on above:Performed By: #### CVDTBH #### [facility] [address] [place] [address] Dr. Travis SanchezAST [Catalytic activity/Vol]18 U/FJrotbt38-38Ack [facility] CenterComment on above:Performed By: #### CVDTBH #### [facility] [address] [place] [address] Dr. Travis SanchezBilirubin [Mass/Vol]0.3 mg/dLNormal0.2-1.0[facility] Comment on above:Performed By: #### CVDTBH #### [facility] [address] [place] [address] Dr. Travis SanchezCalcium [Mass/Vol]9.1 mg/dLNormal8.5-10.1[facility] Comment on above:Performed By: #### CVDTBH #### [facility] [address] [place] [address] Dr. Travis SanchezChloride [Moles/Vol]101 mmol/WDzcwki38-196SpdWhite Hospital Comment on above:Performed By: #### CVDTBH #### [facility] [address] [place] [address] Dr. Travis SanchezCO2 [Moles/Vol]22.1 mmol/RApmbtv99.0-32.0[facility] Comment on above:Performed By: #### CVDTBH #### [facility] [address] [place] [address] Dr. Travis SanchezCreatinine [Mass/Vol]0.81 mg/dLNormal0.70-1.30The [facility] CenterComment on above:Performed By: #### CVDTBH #### [facility] [address] [place] [address] Dr. Travis RiveroGFR-AF BAHRAINI>60Normal>=60The [facility] CenterComment on above:Performed By: #### CVDTBH #### [facility] [address] [place] [address] Dr. Travis RiveroGFR-NON AF BAHRAINI>60Normal>=60The [facility] CenterComment on above:Performed By: #### CVDTBH #### [facility] [address] [place] [address] Dr. Travis SanchezGlobulin (S) [Mass/Vol]3.7 g/dLNormalThACMC Healthcare System GlenbeighComment on above:Performed By: #### CVDTBH #### [facility] [address] [address] [address] Travis SanchezGlucose [Mass/Vol]277 mg/dLCritically yxcv11-354Nuu [facility] CenterComment on above:Performed By: #### CVDTBH #### [facility] [address] [place] [address] Dr. Travis SanchezPotassium [Moles/Vol]3.9 mmol/LNormal3.5-5.1The [facility] Comment on above:Performed By: #### CVDTBH #### [facility] [address] [place] [address] Dr. Travis SanchezProtein [Mass/Vol]7.2 g/dLNormal6.4-8.2The [facility] Comment on above:Performed By: #### CVDTBH #### [facility] [address] [place] [address] Dr. Travis SanchezSodium [Moles/Vol]136 mmol/UCulzqm548-152Pyf [facility] Comment on above:Performed By: #### CVDTBH #### [facility] [address] [place] [address] Dr. Travis SanchezUrea nitrogen [Mass/Vol]11.0 mg/dLNormal7.0-18.0The [facility] CenterComment on above:Performed By: #### CVDTBH #### [facility] [address] [place] [address] Dr. Travis SanchezUrea nitrogen/Creatinine [Mass ratio]13.6 mg/mgNormalThe [facility] CenterComment on above:Performed By: #### CVDTBH #### [facility] [address] [place] [address] Dr. Travis SanchezSALICYLATEon 59-16-2487ERBFEXPYQB<2.8Normal<=19.9The [facility] on above:Performed By: #### CVDTBH #### [facility] [address] [place] [address] Dr. Travis Hurst MICROSCOPIC ONLYon 80-36-8807REPRZJHCLVBUJZgfylwdzNVAB SEEN [facility]Comharper [facility] hospital on above:Performed By: #### CBC #### [facility] [address] [place] [address] Dr. Travis Newman identified Cx Nom (U)INDICATEDBothwell Regional Health CenteralThACMC Healthcare System GlenbeighComharper university hospital on above:Performed By: #### CBC #### [facility] [address] [place] [address] Dr. Travis SanchezCASTSEENAbnormalNONE SEENOhioHealth Marion General Hospital on above: Performed By: #### CBC #### [facility] [address] [place] [address] Dr. Travis SanchezCrystals LM Nom (Urine sed)NONE SEENNormalNONE SEENOhioHealth Marion General Hospital on above:Performed By: #### CBC #### [facility] [address] [place] [address] Dr. Robles ChangEpithelial cells LM Ql (Urine sed)MODERATEAbnormalNONE SEEN /RARE The [facility] CenterComharper university hospital on above:Performed By: #### CBC #### [facility] [address] [place] [address] Dr. Travis JansenALINE CASTRARENormalThe [facility] CenterComharper university hospital on above: Performed By: #### CBC #### [facility] [address] [place] [address] Dr. Travis GarciaCOUSMODERATEAbnormalNONE SEENOhioHealth Marion General Hospital on above:Performed By: #### CBC #### [facility] [address] [place] [address] Dr. Travis SanchezNflguUOI8-0Bcqcnu3-7Fhd [facility] HospitalComment on above:Performed By: #### CBC #### [facility] [address] [address] [address] Travis SanchezWBC2-5AbnormalNONE SEENThe [facility] CenterComment on above: Performed By: #### CBC #### [facility] [address] [address] [address] Travis SanchezTESTOSTERONE, TOTALon 70-98-3582Edlusnzlelto [Mass/Vol]240 ng/dL Critically bmh990-865Sbx [facility] CenterComment on above:Result Comment: Adult male reference interval is based on a population of healthy nonobese males (BMI <30) between 19 and 39 years old. Eve, et.al. JCEM 2017,102;4856-1287. PMID: [id number].Performed By: #### CBC #### [facility] [address] [place] [address] Dr. Travis SanchezGLYCOHEMOGLOBIN A1Con 56-38-8062GBQ RECOMMENDATIONSEE BELOWNormal The [facility] CenterComharper university hospital on above:Result Comment: ADA RECOMMENDED LIMIT 4.0 - 6.0 ADA THERAPEUTIC TARGET < 7.0 ACTION SUGGESTED > 7.0Performed By: #### CBC #### [facility] [address] [address] [address] Travis SanchezGlucose [Mass/Vol]212 mg/dLNormalThe [facility] CenterComharper university hospital on above:Performed By: #### CBC #### [facility] [address] [place] [address] Dr. Travis SanchezHbA1c (Bld) [Mass fraction]9.0 %Critically high4.5-6.2The [facility] CenterComharper university hospital on above:Performed By: #### CBC #### [facility] [address] [place] [address] Dr. Travis SanchezProvider Letter FTMCon 41-47-3621Eablpjcb Letter [facility] STIGLERNormalKnox Community HospitalCoding Summary.on 98-69-2328Dprjna Summary.NormalKnox Community HospitalCHEMISTRYOrdered By: SYSTEM SYSTEM on 09-19-1023Hxgfh gap [Moles/Vol]16 mmol/LNormal6 - 16 mEq/LFTMC RemisolChloride [Moles/Vol]97 mmol/L Arg272 - 111 mmol/LFTMC RemisolCO2 [Moles/Vol]24 mmol/CSfiefe60 - 31 mmol/LFTMC RemisolPotassium [Moles/Vol]4.2 mmol/LNormal3.5 - 5.3 mmol/LFTMC RemisolSodium [Moles/Vol]133 mmol/QLgs308 - 145 mmol/LFTMC RemisolLyteson 32-65-3124Aljqn gap [Moles/Vol]16 mmol/LNormal6-16Knox Community HospitalComment on above: Performed By: #### [id number] ####[address] [address]Hwlmrfmx [Moles/Vol]97 mmol/WEid914-050LrmzbsKnox Community HospitalComment on above:Performed By: #### [id number] ####[address] [address]MG1 [Moles/Vol]24 mmol/JVdqfja43-36QllrppKnox Community HospitalComment on above:Performed By: #### [id number] ####[address] [address]Fwkvnchla [Moles/Vol]4.2 mmol/LNormal3.5-5.3FKettering Health Hamilton Comment on above:Performed By: #### [id number] ####[address] [address]Lteyxv [Moles/Vol]133 mmol/LLow 135-145Knox Community HospitalComment on above:Performed By: #### [id number] ####[address] [address] Patient Educationon 68-86-8212Rlutfzs EducationNoUC [facility] Urology Office/Clinic Noteon 05-45-1830Wsdnmlm Office/Clinic NoteCleveland Clinic South Pointe HospitalComment on above:Result Comment: Electronically Signed By: PALMER TORREZ, Patricio R\.br\Date and Time Signed: 02/16/22 15:06 EST\.br\Electronically Co-Signed By: Germaine Mccain\.br\Date and Time Co- Signed: 02/16/22 15:05 ESTAmbulatory Visit Summaryon 58-42-4160Wwrykklepi Visit SummaryNoUC West Chester HospitalPatient Educationon 99-75-0485Vvugkws EducationNoUC West [facility] HospitalReminderson 53-31-2956AihwsvribOkqemgAdena Health SystemComment on above:Other Comment: in errorUrology Office/Clinic Noteon 73-33-1930Cdecfzy Office/Clinic NoteCleveland Clinic South Pointe HospitalComment on above:Result Comment: Electronically Signed By: Patricio CHAKRABORTY MD\.br\Date and Time Signed: 12/15/21 15:50 EDT\.br\Electronically Co-Signed By: Alannah Ragland MA\.br\Date and Time Co-Signed: 12/15/21 15:45 EDT INSULINon 71-67-9626Qldpyee34.9 uIU/mLCritically high2.6-24.9The [facility] CenterComment on above:Performed By: #### SEDR #### [facility] [address] [place] [address] Dr. Travis Massey AUTO DIFFon 83-36-3260ULVT #0.0 103/ulNormal0.0-0.1White HospitalComment on above:Performed By: #### CBC #### [facility] [address] [place] [address] Dr. Travis Mcelroysophils/100 WBC (Bld)0.5 %Normal0.2-2.0[facility] Comment on above:Performed By: #### CBC #### [facility] [address] [place] [address] Dr. Travis Rdz #0.1 103/ulNormal0.0-0.7The [facility] CenterComment on above: Performed By: #### CBC #### [facility] [address] [place] [address] Dr. Travis Riveroosinophils/100 WBC (Bld)1.8 %Normal0.9-7.0[facility] Comment on above:Performed By: #### CBC #### [facility] [address] [place] [address] Dr. Travis Riverorythrocyte distribution width (RBC) [Ratio]13.7 %Wrifdr61.0-15.0 White HospitalComment on above:Performed By: #### CBC #### [facility] [address] [place] [address] Dr. Travis SanchezHematocrit (Bld) [Volume fraction]40.9 %Critically low42.0-54.0 The [facility] CenterComment on above:Performed By: #### CBC #### [facility] [address] [place] [address] Dr. Travis SanchezHemoglobin (Bld) [Mass/Vol]13.7 g/dLCritically low14.0-18.0The [facility] CenterComment on above:Performed By: #### CBC #### [facility] [address] [place] [address] Dr. Travis Kaur #0.04 10e3/ulCritically high0.00-0.03The [facility] Comment on above:Performed By: #### CBC #### [facility] [address] [place] [address] Dr. Travis Kaur %0.7 %Critically high0.0-0.5The [facility] CenterComment on above:Performed By: #### CBC #### [facility] [address] [place] [address] Dr. Travis StollH #1.6 103/ulNormal1.2-3.8The [facility] CenterComment on above:Performed By: #### CBC #### [facility] [address] [place] [address] Dr. Travis Hernandezmphocytes/100 WBC (Bld)25.8 %Ifefrk53.5-60.0The [facility] CenterComment on above:Performed By: #### CBC #### [facility] [address] [place] [address] Dr. Travis Martinez DIFF REQNONormalThe [facility] CenterComment on above: Performed By: #### CBC #### [facility] [address] [place] [address] Dr. Travis Glasgow (RBC) [Entitic mass]30.4 ztJtjmsg05.9-34.0The [facility] CenterComment on above:Performed By: #### CBC #### [facility] [address] [place] [address] Dr. Travis Glasgow (RBC) [Mass/Vol]33.5 g/hSDabnxe61.9-35.2The [facility] CenterComment on above:Performed By: #### CBC #### [facility] [address] [place] [address] Dr. Travis Glasgow (RBC) [Entitic vol]90.9 aWAestje67.0-94.0The [facility] CenterComment on above:Performed By: #### CBC #### [facility] [address] [place] [address] Dr. Travis Fox #0.4 103/ulNormal0.3-0.8The [facility] CenterComment on above:Performed By: #### CBC #### [facility] [address] [place] [address] Dr. Travis Smallsocytes/100 WBC (Bld)6.4 %Normal1.7-12.0The [facility] Comment on above:Performed By: #### CBC #### [facility] [address] [place] [address] Dr. Travis Raza #4.0 103/ulNormal1.4-6.5The [facility] CenterComment on above:Performed By: #### CBC #### [facility] [address] [place] [address] Dr. Travis Guidoutrophils/100 WBC (Bld)64.8 %Vffhid57.0-75.0The [facility] CenterComment on above:Performed By: #### CBC #### [facility] [address] [address] [address] Travis SanchezPlatelet mean volume (Bld) [Entitic vol]10.4 fLNormal9.5-13.5The [facility] on above:Performed By: #### CBC #### [facility] [address] [address] [address] Travis SanchezPLT271 103/ajIoykxa531-687Uzs [facility] on above: Performed By: #### CBC #### [facility] [address] [place] [address] Dr. Travis SanchezRBC4.50 106/ulCritically low4.70-6.10The [facility] CenterComharper university hospital on above:Performed By: #### CBC #### [facility] [address] [place] [address] Dr. Travis SanchezWBC6.1 103/ulNormal4.0-11.0The [facility] on above: Performed By: #### CBC #### [facility] [address] [place] [address] Dr. Travis SanchezDIRECT LDLon 94-71-3254Lfdrfekggdp in LDL [Mass/Vol]124 mg/dL NormalOhioHealth Marion General Hospital on above:Performed By: #### PSASC #### [facility] [address] [place] [address] Dr. Travis SanchezDLDL NORMALSEE BELOWFort Hamilton HospitalComharper university hospital on above: Result Comment: <100 mg/dl OPTIMAL 100 - 129 mg/dl NEAR OR ABOVE OPTIMAL 130 - 159 mg/dl BORDERLINE HIGH 160 - 189 mg/dl HIGH >190 mg/dl VERY HIGHPerformed By: #### PSASC #### [facility] [address] [place] [address] Dr. Travis SanchezGLYCOHEMOGLOBIN A1Con 32-71-2146OSP RECOMMENDATIONSEE BELOWHolmes County Joel Pomerene Memorial HospitalComharper university hospital on above:Result Comment: ADA RECOMMENDED LIMIT 4.0 - 6.0 ADA THERAPEUTIC TARGET < 7.0 ACTION SUGGESTED > 7.0Performed By: #### SEDR #### [facility] [address] [address] [address] Travis SanchezGlucose [Mass/Vol]223 mg/dLFort Hamilton HospitalComment on above:Performed By: #### SEDR #### [facility] [address] [address] [address] Travis SanchezHbA1c (Bld) [Mass fraction]9.4 %Critically high4.5-6.2The [facility] CenterComment on above:Performed By: #### SEDR #### [facility] [address] [address] [address] Travis SanchezLIPID PROFILEon 95-96-1354CMBV-HDL RATIO NORMSMercy Health St. Charles HospitalComharper university hospital on above:Result Comment: 3.3 - 4.4 LOW RISK 4.4 - 7.1 AVERAGE RISK 7.1 - 11.0 MODERATE RISK >11.0 HIGH RISKPerformed By: #### CBC #### [facility] [address] [place] [address] Dr. Travis SanchezCholesterol [Mass/Vol]265 mg/dLCritically high<=200The [facility] CenterComharper university hospital on above:Performed By: #### CBC #### [facility] [address] [place] [address] Dr. Travis Varelaesterol in HDL [Mass/Vol]37 mg/dLCritically fiy50-33Yfz [facility] on above:Performed By: #### CBC #### [facility] [address] [place] [address] Dr. Travis Varelaesterleroy.total/Cholesterol in HDL [Mass ratio]7.2 {ratio} NormalThe [facility] on above:Performed By: #### CBC #### [facility] [address] [place] [address] Dr. Travis SanchezHDL NORMAL> or = 60 mg/dl - LOW CARDIOVASCULAR RISK <40 mg/dl - HIGH CARDIOVASCULAR RISKFort Hamilton HospitalComment on above:Performed By: #### CBC #### [facility] [address] [place] [address] Dr. Travis SanchezTriglyceride [Mass/Vol]604 mg/dLCritically high<=150The [facility] District Hospitalment on above:Performed By: #### CBC #### [facility] [address] [place] [address] Dr. Travis LopezLDL CHUL778.8 mg/dLNormalThe [facility] CenterComment on above: Performed By: #### CBC #### [facility] [address] [address] [address] Travis SanchezPROF 14(COMP METB)on 45-32-4337Qsnrhec [Mass/Vol]3.8 g/dLNormal 3.4-5.0The [facility] CenterComment on above:Performed By: #### PSASC #### [facility] [address] [place] [address] Dr. Travis SanchezAlbumin/Globulin [Mass ratio]1.0 {ratio}NormalThe [facility] CenterComment on above:Performed By: #### PSASC #### [facility] [address] [place] [address] Dr. Travis Fleming [Catalytic activity/Vol]103 U/GUnqiii56-020Bac [facility] CenterComment on above:Performed By: #### PSASC #### [facility] [address] [place] [address] Dr. Travis Pringle [Catalytic activity/Vol]41 U/ZUvlnio76-61Dtj [facility] CenterComment on above:Performed By: #### PSASC #### [facility] [address] [place] [address] Dr. Travis Soria gap [Moles/Vol]14.4 mmol/LNormalThe [facility] Comment on above:Performed By: #### PSASC #### [facility] [address] [place] [address] Dr. Travis Graff [Catalytic activity/Vol]17 U/CDkdhkc72-59Wwi [facility] CenterComment on above:Performed By: #### PSASC #### [facility] [address] [place] [address] Dr. Travis SanchezBilirubin [Mass/Vol]0.3 mg/dLNormal0.2-1.0The [facility] Comment on above:Performed By: #### PSASC #### [facility] [address] [address] [address] Travis SanchezCalcium [Mass/Vol]9.1 mg/dLNormal8.5-10.1The [facility] Comment on above:Performed By: #### PSASC #### [facility] [address] [address] [address] Travis SanchezChloride [Moles/Vol]99 mmol/GQjvrid80-973Qnp [facility] Comment on above:Performed By: #### PSASC #### [facility] [address] [place] [address] Dr. Travis SanchezCO2 [Moles/Vol]25.7 mmol/EOghfew75.0-32.0The [facility] Comment on above:Performed By: #### PSASC #### [facility] [address] [place] [address] Dr. Travis SanchezCreatinine [Mass/Vol]0.69 mg/dLCritically low0.70-1.30The [facility] CenterComment on above:Performed By: #### PSASC #### [facility] [address] [place] [address] Dr. Travis RiveroGFR-AF BAHRAINI>60Normal>=60The [facility] CenterComment on above:Performed By: #### PSASC #### [facility] [address] [place] [address] Dr. Travis RiveroGFR-NON AF BAHRAINI>60Normal>=60The [facility] CenterComment on above:Performed By: #### PSASC #### [facility] [address] [place] [address] Dr. Travis SanchezGlobulin (S) [Mass/Vol]3.9 g/dLNormalThe [facility] CenterComment on above:Performed By: #### PSASC #### [facility] [address] [place] [address] Dr. Travis SanchezGlucose [Mass/Vol]269 mg/dLCritically bkpx50-393Ixz [facility] CenterComment on above:Performed By: #### PSASC #### [facility] [address] [place] [address] Dr. Travis SanchezPotassium [Moles/Vol]4.1 mmol/LNormal3.5-5.1The [facility] Comment on above:Performed By: #### PSASC #### [facility] [address] [place] [address] Dr. Travis SanchezProtein [Mass/Vol]7.7 g/dLNormal6.4-8.2The [facility] Comment on above:Performed By: #### PSASC #### [facility] [address] [place] [address] Dr. Travis SanchezSodium [Moles/Vol]135 mmol/LCritically wvu375-079Hto [facility] CenterComment on above:Performed By: #### PSASC #### [facility] [address] [place] [address] Dr. Travis SanchezUrea nitrogen [Mass/Vol]11.0 mg/dLNormal7.0-18.0The [facility] CenterComment on above:Performed By: #### PSASC #### [facility] [address] [place] [address] Dr. Travis SanchezUrea nitrogen/Creatinine [Mass ratio]15.9 mg/mgNormalThe [facility] CenterComment on above:Performed By: #### PSASC #### [facility] [address] [place] [address] Dr. Travis SanchezURIC ACID SERUMon 68-04-1006Wjxcx [Mass/Vol]5.5 mg/dLNormal 3.5-7.2The [facility] CenterComment on above:Performed By: #### CBC #### [facility] [address] [place] [address] Dr. Travis SanchezCNOVon 87-79-3869HABSGntpgh Visit (UROLMN) ENIO RAYMOND ([id number]) 1990 M [facility] Date Time Provider Department 09/23/21 4:00 PM TAHIR DEJESUS During your visit today, we recorded the following information about you: Tahir Dejesus MD 10/06/2021 8:48 AM Signed PATIENT: Enio Raymond [id number] REFERRING MD: Self 09/23/2021 Chief Complaint Post op History of Present Illness Enio Raymond is a very pleasant 30 year old male who presents for post op check up Had recent vasectomy from [facility] urologist office with severe scrotal [...] Scribed for Dr. Tahir Dejesus by Goran Nuñez biomedical instrument technician, on September 23, 2021 I agree with the Chief Complaint, ROS, and Past Histories independently gathered by the clinical client support manager including scribe and or medical student and or MIGUEL and or resident or fellow and the remaining scribed note accurately describes my personal service to the patient. Tahir Dejesus MD, MS [facility] Referring Provider: SELF [200] Allergies As of [...] pain [R07.89] 08/26/2021 08/27/2021 Encounter Status:Closed by WEIGHT, TAHIR on 10/06/21NoLima City HospitalUS VENOUS DOPPLER R Fernie 17-40-0756IK VENOUS DOPPLER R ARMEXAMINATION: US VENOUS DOPPLER R ARM HISTORY: Cellulitis [...] Electronically authenticated by: ELIUD IRIZARRY Date: 2021-09-01 13:01[facility] [id number] ID: [id number] Author: Angel Nelson MD Service: Urology Author Type: Resident Type: Consults Filed: 08/13/2021 4:55 PM Note Text: [facility] UROLOGY CONSULT NOTE Service Date: 08/13/2021 Service Time: 4:55 PM ASSESSMENT AND PLAN: 30 year old male with history of DM2, recent vasectomy presenting from [facility] urologist's office with c/f Golden's gangrene. AFVSS [...] Angel Nelson MD Urology Resident PGY-2 Pager: [phone] For weekend or after hours issues [place] [phone] HPI: Enio Raymond is a 30 year [...] hematuria or issues voiding at this time. No past medical history on file. No [...] No lower extremity edema LABS: Pending IMAGING: PendingNormalCUC West Chester HospitalGlucose Glucometer (dC) [Mass/Vol] Ordered By: Segun Cho on 26-87-5131Zobmols [Mass/Vol]397 mg/dLRegency Hospital Cleveland EastComment on above:Random Glucose Reference Range is dependent on time and content of last meal. Glucose of more than 200 mg/dL in a nonstressed, ambulatory subject supports the diagnosis of Diabetes Mellitus. Glucose Poct Glucometerson 57-81-5255Jjjzrus [Mass/Vol]397 mg/dLSt. Elizabeth HospitalComment on above:Result Comment: Random Glucose Reference Range is dependent on time and content of last meal. Glucose of more than 200 mg/dL in a nonstressed, ambulatory subject supports the diagnosis of Diabetes Mellitus. PERFORMED BY: [place] [address] PATHOLOGIST [employer] JOSSELYN ROSEN M.D.Performed By: #### GLULS #### Point of Care testing , scrotumon 10-06-8360EN [facility] centerotSouthern [facility] [place] [address] Ultrasound Report Signed Patient: Enio Raymond MR#: [id number] : 1990 Acct:[id number] Age/Sex: 30 / M ADM Date: 08/10/21 Loc: ER Room: Type: [facility] ER Attending Dr: Ordering Provider: Segun Cho MD [...] Estrella Chung M.D.08/10/2021 7:04 PM Dictation Location: [place] [address] Tech: Mariana Caban Transcribed By: PAVEL 08/10/211903 Dictated By: Estrella Chung MD 08/10/211899 Signed By: 08/10/21 190NoAdena Pike Medical CenterUS scrotumon 69-70-2076KU [facility] [address] Ultrasound Report Signed Patient: Enio Raymond MR#: [id number] : 1990 Acct:[id number] Age/Sex: 30 / M ADM Date: 07/31/21 Loc: ER Room: Type: [facility] ER Attending Dr: Ordering Provider: Oliver [...] Gael Aguilar M.D.08/01/2021 9:01 AM Dictation Location: [place] [address] Tech: [facility] Transcribed By: PAVEL 08/01/21900 Dictated By: Gael Aguilar DO 08/01/21 0830 Signed By: 08/01/[address]01[address] Elizabeth HospitalUrinalysison 08-01-2021 Appearance (U)ClearNormalClearRegency Hospital Cleveland EastComment on above: Order Comment: Name Collection Type:: Clean-Voided MidstreamPerformed By: #### UA ####[facility] [id number] [place] [address] [place] Bilirubin,UrineNegativeNormcaNegativeRegency Hospital Cleveland EastComment on above:Order Comment: Name Collection Type:: Clean-Voided MidstreamPerformed By: #### UA ####[facility] [address] [place] [address] USAColor (U)YellowNormalYMetroHealth Main Campus Medical CenterComment on above: Order Comment: Name Collection Type:: Clean-Voided MidstreamPerformed By: #### UA ####[address] [address] [place] Glucose Ql (U)>=1000HighNormWilson Memorial HospitalComment on above: Order Comment: Name Collection Type:: Clean-Voided MidstreamPerformed By: #### UA ####[address] [address] [place] Ketones Ql (U)TraceHighNegSelect Medical Specialty Hospital - ColumbusComharper university hospital on above:Order Comment: Name Collection Type:: Clean-Voided MidstreamPerformed By: #### UA ####[address] [address] USALeukocyte esterase Test strip Ql (U)NegativeNohaywood regional medical centerNegSelect Medical Specialty Hospital - ColumbusComment on above:Order Comment: Name Collection Type:: Clean- Voided MidstreamPerformed By: #### UA ####[address] [address] USANitrite,UrineNegativeNormalNegativeRegency Hospital Cleveland EastComment on above:Order Comment: Name Collection Type:: Clean-Voided MidstreamPerformed By: #### UA ####[address] [address] USAOccult Blood,UrineNegativeNormal NegativeRegency Hospital Cleveland EastComment on above:Order Comment: Name Collection Type:: Clean-Voided MidstreamResult Comment: PERFORMED BY: [facility] [address] [place] [id number] PATHOLOGIST [employer] POLICY SPECIALIST JOSSELYN ROSEN M.D.Performed By: #### UA ####[address] [address] USApH (U)6.0 [pH]Normal5.0-9.0[facility] EastComharper university hospital on above:Order Comment: Name Collection Type:: Clean- Voided MidstreamPerformed By: #### UA ####[address] [address] USAProtein,UrineNegativeNormalNegSelect Medical Specialty Hospital - ColumbusComment on above:Order Comment: Name Collection Type:: Clean-Voided MidstreamPerformed By: #### UA ####[facility] [place] [address] USASpecificy Kaibeto,Urine1.038High 1.001-1.030Reg[facility] Hospital Cleveland EastComment on above:Order Comment: Name Collection Type:: Clean-Voided MidstreamPerformed By: #### UA ####[facility] [place] [address] USAUrobilinogen,Urine NormalNormalNormWilson Memorial HospitalComment on above:Order Comment: Name Collection Type:: Clean-Voided MidstreamPerformed By: #### UA ####[address] [place] [address] [place] Bilirubin Test strip Ql (U)Ordered By: Oliver Diehl on 10-03-0745Nrvvbvltg Ql (U)NegativeKettering Health DaytonColor Auto (U)Ordered By: Oliver Diehl on 99-27-0081Dmips (U)YellowYellowRegency Hospital Cleveland EastKetones Auto test strip (U) [Mass/Vol]Ordered By: Oliver Diehl on 72-17-9188Aeydzfy (U) [Mass/Vol]TraceNegSelect Medical Specialty Hospital - Columbus Nitrite Test strip Ql (U)Ordered By: Oliver Diehl on 00-66-7698Tgwljzo Ql (U) NegativeNegSelect Medical Specialty Hospital - ColumbusProtein Auto test strip (U) [Mass/Vol]Ordered By: Oliver Diehl on 22-86-0787Chejzfq (U) [Mass/Vol]Negative NegativeCleveland Clinic Hillcrest Hospitalpecific gravity Auto test strip (U) [Rel density]Ordered By: Oliver Diehl on 90-09-4925Zzxwzsym gravity (U) [Rel density]1.0381.001-1.030[facility] Hospital Cleveland EastUrine clarity by refractometry automatedOrdered By: Oliver Diehl on 61-54-4457Dqirbuj Refractometry automated (U)ClearClearFHarrison Community HospitalUrine glucose measurement by automated test strip (mass/volume)Ordered By: Oliver Diehl on 48-09-7737Nlrndns Auto test strip (U) [Mass/Vol]>=1000 mg/dLNormal [facility] EastUrine hemoglobin detection by automated test stripOrdered By: Oliver Diehl on 63-60-9463Xjqiyswxtu Auto test strip Ql (U) NegativeNegSelect Medical Specialty Hospital - ColumbusUrine leukocyte esterase detection by automated test stripOrdered By: Oliver Diehl on 07-31-2021 Leukocyte esterase Auto test strip Ql (U)NegativeNegSelect Medical Specialty Hospital - ColumbusUrobilinogen Auto test strip (U) [Mass/Vol]Ordered By: Oliver Diehl on 83-85-5037Sphqmnrnkzzg (U) [Mass/Vol]Normal mg/dLNormWilson Memorial HospitalpH Auto test strip (U)Ordered By: Oliver Diehl on 51-90-6609uS (U)6.0 [pH]5.0-9.0Reg[facility] Hospital Cleveland EastLon 07-25-2021L Specimen: [id number] Received: 07/25/21 Status: NIRAV Jacinto Num: [id number] Spec Type: Surgical Subm Dr: Patricio Chakraborty MD Tissues: A VAS DEFERENS - sterilization (LT) B VAS DEFERENS - sterilization (RT) Procedures: JOSH Stain/2, Gross/Micro L2/2 Patient Age/Sex Location Account Attending Physician AgataEnio dean 30/M [place] [id number] Patricio Chakraborty MD SPEC NUM: [id number] RECD: 07/25/21 STATUS: NIRAV BENNETT NUM: [id number] RACHEL: 07/25/21- [facility] DR: Patricio Chakraborty MD ENTERED: 07/25/21 [facility] DR: Dino [facility] SPEC TYPE: Surgical DEPT: S ORDERED: [...] Entirely submitted in one cassette labeled A1. (PRAVEEN) B. Received in 10% neutral buffered formalin, labeled with the patient's name, number and right vas deferens is a 1.3 cm in length x 0.3 cm in diameter carter tubular tissue fragment, which is submitted in toto to be cut at embedding. Entirely submitted in one cassette labeled B1. (PRAVEEN) Specimen: [id number] Received: 07/25/21 Status: NIRAV Bennett Num: [id number] Spec Type: Surgical Subm Dr: Patricio Chakraborty MD Tissues: A VAS DEFERENS - sterilization (LT) B VAS DEFERENS - sterilization (RT) Procedures: JOSH Stain/2, Gross/Micro L2/2 Patient: Enio Raymond [id number] (Continued) Specimen: [id number] Received: 07/25/21 (Continued) Signed (signature on file) Josselyn Rosen MD 07/28/21 1753 Specimen: [id number] Received: 07/25/21 Status: NIRAV Bennett Num: [id number] Spec Type: Surgical Subm Dr: Patricio Chakraborty MD Tissues: A VAS DEFERENS - sterilization (LT) B VAS DEFERENS - sterilization (RT) Procedures: HE Stain/2, Gross/Micro L2/2 Patient: Enio Raymond [id number] (Continued) Specimen: [id number] Received: 07/25/21 (Continued) Microscopic Description A. One glass slide with H E stained material has been examined. The microscopic findings support the above pathologic diagnosis. B. One glass slide with H E stained material has been examined. The microscopic findings support the above pathologic diagnosis. [id number] Specimen: [id number] Received: 07/25/21 Status: NIRAV Bennett Num: [id number] Spec Type: Surgical Subm Dr: Patricio Chakraborty MD Tissues: A VAS DEFERENS - sterilization (LT) B VAS DEFERENS - sterilization (RT) Procedures: HE Stain/2, Gross/Micro L2/2 Patient: Enio Raymond [id number] (Continued) Signed (signature on file) Josselyn Rosen MD 07/28/[address] Elizabeth HospitalCOVID Quick Testingon 57-70-3051Elokpe NegativeNoUniversity of New [place] Other [phone]-50 PCRon 06-54-6937WWOB-CoV-2 (COVID-19) RNA ECTOR+probe Ql (Unsp spec)Not detectedNoUniversity of [place] Other 460-8176Pkhai-43 PCRNoUniversity of [place] Other Vital Signs Date TimeVital SignValuePerforming YvavqzmkmXtnywssm06-09-9053 11:43-0400Blood Pressure LocationPatrick CHAKRABORTY [facility]09-18-2023 11:43-0400Diastolic blood lsknlkex60 mm[Hg]Patricio CHAKRABORTY [facility]09-18-2023 11:43-0400Heart rate80 /minPatrick CHAKRABORTY [facility]09-18-2023 11:43-0400Respiratory rate16 /minPatrick CHAKRABORTY [facility]09-18-2023 11:43-0400Systolic blood umwquxby512 mm[Hg]Patricio CHAKRABORTY [facility]05-08-2023 14:00-0400Body wswrpsttney46.7 [degF]Ronobir YURIDIA [facility]05-08-2023 14:00-0400 Diastolic blood cjgdgxoe73 mm[Hg]Ronobir YURIDIA [facility]05-08-2023 14:00-0400Heart rate82 /minRonobir YURIDIA [facility]05-08-2023 14:00-0400 Respiratory rate17 /minRonobir YURIDIA [address] [place], [place] [address]05-08-2023 14:00-0601LxV4% (BldA) [Mass fraction]95 %Ronobir YURIDIA [facility]05-08-2023 14:00-0400 Systolic blood mm[Hg]Ronobir YURIDIA [facility]05-08-2023 12:53-0400 Hourly RoundingRonobir YURIDIA [address] [place], [place] 1451905-08-2023 12:53-0400 Promise to ReturnRonobir YURIDIA [address] [place], [place] 1451905-08-2023 11:00-0400gluc 292 mg/dLRonobir YURIDIA [address] [place], [place] 1451905-08-2023 11:00-0400 Hourly RoundingRonobir YURIDIA [address] [place], [place] 1451905-08-2023 11:00-0400 Promise to ReturnRonobir YURIDIA [address] [place], [place] 1451905-08-2023 10:00-0400 Hourly RoundingRonobir YURIDIA [address] [place], [place] 4635605-08-2023 10:00-0400 Promise to ReturnRonobir YURIDIA [address] [place], [place] 4635605-08-2023 09:29-0400 Diastolic blood mm[Hg]Ronobir YURIDIA [address] [place], [place] 4635605-08-2023 09:29-0400 Systolic blood sbsmjuvp332 mm[Hg]Ronobir YURIDIA [address] [place], [place] 4635605-08-2023 08:00-0400Heart rate77 /minRonobir YURIDIA [address] [place], [place] 1451905-08-2023 08:00-0400Mean blood hjiaguct33 mm[Hg]Ronobir YURIDIA [address] [place], [place] 1451905-08-2023 08:00-0400 Respiratory rate18 /minRonobir YURIDIA [address] [place], [place] 1451905-08-2023 08:00-5818DcG7% (BldA) [Mass fraction]96 %Ronobir YURIDIA [address] [place], [place] 1451905-08-2023 07:00-0400gluc 238 mg/dLRonobir YURIDIA [address] [place], [place] 4635605-07-2023 20:24-0400Heart rate85 /minRonobir YURIDIA [address]05-07-2023 20:23-0400Mean blood dybwzgai12 mm[Hg]Ronobir YURIDIA [address] [place], [place] 4635605-07-2023 20:23-0400Body viwwomdzrmf81.88 [degF]Ronobir YURIDIA [address] [place], [place] 4635605-07-2023 17:00-0400Mean blood lfpcbvap69 mm[Hg]Ronobir YURIDIA [address] [place], [place] 4635605-07-2023 17:00-0400Body ksjzoaxyufq43.52 [degF]Ronobir YURIDIA [address] [place], [place] 4635605-07-2023 16:20-0400Mean blood dyeaztfq69 mm[Hg]Ronobir YURIDIA [address]05-07-2023 12:38-0400 Respiratory rate16 /minRonobir YURIDIA [address] [place], [place] 1451905-07-2023 00:44-0400Heart aywo598 /minRonobir YURIDIA [address] [place], [place] 1451905-07-2023 00:00-0400Mean blood pphawhpi26 mm[Hg]Ronobir YURIDIA [address] [place], [place] 145[address]05-06-2023 23:00-0400Mean blood umkvomhs76 mm[Hg]Ronobir YURIDIA [address]05-06-2023 20:13-0400Heart gquv955 /minRonobir YURIDIA [facility]05-06-2023 20:10-0400gluc 317 mg/dLRonobir YURIDIA [facility]05-06-2023 20:10-0400gluc Ronobir YURIDIA [facility]04-06-2023 08:45-0400Blood Pressure LocationJENNIFER CHESTER [facility]04-06-2023 08:45-0400Diastolic blood mm[Hg]MARIANA CHESTER [facility]04-06-2023 08:45-0400Heart rate88 /minJENNIFER CHESTER [facility]04-06-2023 08:45-0400Systolic blood hyrhgwxx854 mm[Hg]MARIANA CHESTER [facility]01-28-2023 07:30-0500Body .4 [degF]PHYSICIAN [facility]01-28-2023 07:30-0500Diastolic blood pressure 111 mm[Hg]PHYSICIAN [facility] [place]01-28-2023 07:30-0500Heart zvkv263 /minPHYSICIAN [facility] 04-04-2022 07:30-8919VxL9% (BldA) [Mass fraction]97 %PHYSICIAN [facility]01-28-2023 07:30-0500Systolic blood ircekhog310 mm[Hg]PHYSICIAN [facility]01-27-2023 20:25-0500 Respiratory rate16 /minPHYSICIAN [facility] 04-02-2022 16:30-0500Body opekvr480.04 cmPHYSICIAN [facility]01-25-2023 19:34-0500Body .61 kgPHYSICIAN NO [facility]10-10-2022 14:10-0400Blood Pressure Location Patricio CHAKRABORTY [facility]10-10-2022 14:10-0400Diastolic blood rcpplmah79 mm[Hg]Patricio CHAKRABORTY [facility]10-10-2022 14:10-0400Heart rate75 /minPatrick TouristR [facility]10-10-2022 14:10-0400Respiratory rate16 /minPatrick CHAKRABORTY [facility]10-10-2022 14:10-0400Systolic blood amussjdr864 mm[Hg]Patricio CHAKRABORTY [facility]08-01-2022 11:21-0400Blood Pressure LocationPaevelina CHAKRABORTY [facility] 08-01-2022 11:21-0400Diastolic blood kegnaeuo14 mm[Hg] Patricio CHAKRABORTY [facility] 08-01-2022 11:21-0400Heart iqbs130 /minPatrick TouristR [facility] 08-01-2022 11:21-0400Respiratory rate16 /minPatrick TouristR [facility] 08-01-2022 11:21-0400Systolic blood jylpiodh412 mm[Hg] Patricio CHAKRABORTY [facility] Trisha [id number] 17:39-0400Body uwacpf334.5 cmLisa Aichholz Work Phone: [facility]06-05-2022 17:39-0400 Body mass index (BMI) [Ratio]51 kg/m2Lisa Aichholz Work Phone: [facility]06-05-2022 17:39-0400 Body eaufysbpmzz71.5 [degF]Jackelin Aichholz Work Phone: [phone] [place], [place] 3627206-05-2022 17:39-0400 Body tsmtvi760 kgLisa Aichholz Work Phone: 1(296)215-[address] [place], [place] 3627206-05-2022 17:39-0400 Diastolic blood knwhoifz70 mm[Hg]Jackelin Aichholz Work Phone: [facility]06-05-2022 17:39-0400 Heart mgbt517 /minLisa Aichholz Work Phone: [facility]06-05-2022 17:39-0400 Respiratory rate23 /minLisa Aichholz Work Phone: [facility]06-05-2022 17:39-0400 SaO2% (BldA) [Mass fraction]96 %Jackelin Aichholz Work Phone: 1([phone])387-[facility]06-05-2022 17:39-0400 Systolic blood gjspyggs455 mm[Hg]Jackelin Aichholz Work Phone: 1(536)335-[address] [place], [place] 3627205-26-2022 22:13-0400 Body .5 [degF]Jackelin Aichholz Work Phone: 1(145)457-[address] [place], [place] 3627205-26-2022 22:13-0400 Diastolic blood mxjqryec582 mm[Hg]Jackelin Aichholz Work Phone: [facility]05-26-2022 22:13-0400 Heart shdb665 /minLisa Aichholz Work Phone: [facility]05-26-2022 22:13-0400 Respiratory rate22 /minLisa Aichholz Work Phone: 1(169)359-[address] [place], [place] 3627205-26-2022 22:13-0400 SaO2% (BldA) [Mass fraction]95 %Jackelin Aichholz Work Phone: [facility]05-26-2022 22:13-0400 Systolic blood mm[Hg]Jackelin Aichholz Work Phone: 1(235)344-[address] [place], [place] 3627205-26-2022 22:12-0400 Body xazdvq349.5 cmLisa Aichholz Work Phone: 1([phone] [place], [place] 6764705-26-2022 22:12-0400 Body mass index (BMI) [Ratio]51.7 kg/m2Lisa Aichholz Work Phone: [facility]05-26-2022 22:12-0400 Body kgLisa Aichholz Work Phone: [facility]01-17-2022 12:30-0500 Body qwtfty425.5 Jerson Billingsley Other [employer] Other 01-17-2022 12:30-0500Body zmtxseqnvjm78 [degF]Shruthi Billingsley Other [employer] Other 01-17-2022 12:30-7547HfM6% (BldA) [Mass fraction]98 % Shruthi Billingsley Other [employer] Other 11-16-2021 11:15-0500Body ajimyj480.5 cmAmbanusha Vanegas Other [employer] Other 11-16-2021 11:15-0500Body mass index (BMI) [Ratio] 49.99 kg/r7Vvmjeanusha Vanegas Other [employer] Other 11-16-2021 11:15-0500Body bkjpvtqbzzo06.1 [degF]Bailey Vanegas Other noUniversity of [place] Other 11-16-2021 11:15-0500Body kdyayo513.44 kgAmbanusha Vanegas Other [employer] Other 11-16-2021 11:15-9513VaV5% (BldA) [Mass fraction]94 % Bailey Vanegas Other noUniversity of [place] Other Encounters Encounter DateEncounter TypeCare ProviderFacilityStart: 32-08-3040hnrtxcbata Patricio CHAKRABORTYFacility:EU evueStart: 03-29-2023 End: 57-74-8932Omcprph encounter procedurePatricio CHAKRABORTY [facility] start: 11-23-2022 End: 42-89-4202wpqmibovtfJfiaxol R WATERSFacility:EU BellevueStart: 11-23-2022 End: 70-88-3678Rljpujb encounter procedurePatricio CHAKRABORTY [facility] start: 08-17-2022 End: 75-69-7683mkfescjyraGjbdwxp R WATERSFacility:EU BellevueStart: 08-04-2022 ambulatoryPAMELA CRAMERFacility:G5Bkovr: 19-70-8950cweyrmorjwKKDUNZ ARJUN Facility:K9Qvlmb: 07-11-2022 End: 82-06-0054rpkamutkaoQjtqkkt R MALLICKFacility:FTMCStart: 07-11-2022 End: 27-56-3046ZlengblhlxbIeslvvz R YURIDIA [facility] Start: 07-07-2022 End: 50-45-7440hmbvniihlvQZCIWC CRAMERFacility:X0Xtnfq: 06-25-2022 End: 94-84-3062guupntxdrrSUKXFD CRAMERFacility:P1Wxdno: 89-56-5739xstjnuryqqCC GERTRUDIS HOY .Facility:P6Gmerg: 06-18-2022 End: 40-82-4491ttwmcrtvzlPH GERTRUDIS HOY .Facility:P2Pwuei: 06-12-2022 End: 12-20-4775yjqmiqmdifUBGGSI LALITA .Facility:J1Drhiy: 06-11-2022 End: 91-38-3366ueyvoctvzzGSDSLKLW E PERRYFacility:EU [place]uskyStart: 06-11-2022 End: 96-02-8525Mqcupfw encounter procedureJENNIFER E CHESTER [facility] Inna Start: 05-23-2022 End: 56-80-6907jkoxvpjjezCFPLP PARKERFacility:O6Bkzhm: 03-66-5470zyxbtrvgit SHRUTHI CRAMERFacility:O7Saoim: 04-01-2022 End: 76-99-1410Dyvvjomicp and management of inpatientAdeyemi Julio [facility]: 04-01-2022 End: 60-00-6224Paaiknhwrb and management of inpatientPHYSICIAN NO [facility] Work Phone: Start: 04-01-2022 End: 75-64-8516zoqsqybctbMTYRXWE D KATKOFacility:X2Cncto: 03-17-2022 End: 75-02-5556vzcklxthebNG GERTRUDIS HOY .Facility:C9Wjqmk: 02-16-2022 End: 95-11-2720igryuxinsnIxyqbqx R WATERSFacility:FTMCStart: 02-16-2022 End: 29-45-6829Tcv Drop offPatricio CHAKRABORTY [facility] Start: 02-16-2022 End: 42-79-8813redowghaweHvhvniw R WATERSFacility:EU BellevueStart: 02-16-2022 End: 31-52-9415Eajpgqu encounter procedurePatricio CHAKRABORTY [facility] start: 01-06-2022 End: 63-75-3342sjfvhcbhuuYPQQNY H FAWWADFacility:E3Gqbje: 12-15-2021 End: 13-70-4306ugsukxljdkQuwgket R WATERSFacility:EU BellevueStart: 12-15-2021 End: 76-80-7658Rjzemog encounter procedurePatricio CHAKRABORTY [facility] start: 12-07-2021 End: 52-49-5330wolsttdkypGQRMJR CRAMERFacility:D2Lcits: 11-13-2021 End: 81-57-9120ttrxcboqdmFOKYYF CRAMERFacility:K0Hkydg: 11-06-2021 End: 49-07-3980zdpnzpbyesXIOOQP CRAMERFacility:V5Rbnwg: 10-28-2021 End: 45-77-2156Wrafnjzfqcfwn drug monitoringProbbin Gilbert MD Work Phone: Vascular MedicineComment on above:Multiple subsegmental pulmonary emboli without acute cor pulmonale (HCC) (Primary Dx); Anticoagulation management encounterStart: 10-28-2021 End: 53-97-0466Zfhcpxltghag consultation with Halina Gilbert MD Work Phone: ccf [facility] MAINStart: 85-72-6093xypmffthwu RESEARCH SUPPORT SPECIALIST JACKELIN Laracility:I7Pyqhd: 10-06-2021 End: 44-93-3632Kixzrsk encounter procedurePatricio CHAKRABORTY [facility] start: 10-06-2021 End: 82-86-5604nwhpxfvcxoRNUYGR H FAWWADFacility:H5Cceel: 09-23-2021 End: 95-57-9934Gsqvccn encounter procedureChrufus Dejesus MD Work Phone: UrologyComment on above:Vasectomy status (Primary Dx) Start: 09-23-2021 End: 84-62-4644frzvrkahgmQbgftuisvqw Weight MD Work Phone: UrologyStart: 87-32-1833Sqtrjylyu encounterAlana Resendizwilsonville Urological &Comment on above:Returning Patient's CallStart: 09-05-2021 End: 96-78-4026tfvptgcfedCGQ LISA AICHHOLZFacility:L6Whreh: 09-02-2021 End: 41-63-6106zbjfjbismbCVLCEM H FAWWADFacility:C9Klwjy: 09-01-2021 End: 65-05-2570hkqmtphzykUPG JACKELIN Laracility:T2Jccaw: 08-13-2021 End: 95-87-8431Mynmbiq encounter procedurePatricio CHAKRABORTY [facility] Start: 08-10-2021 End: 36-48-3473Cdtpbpdtk department patient visitPHYSICIAN NO FAMILY Facility:[facility]tart: 08-10-2021 End: 44-93-1134Vgyqjrovc department patient visitLisa Hale Work Phone: [facility]-Emergency RoomStart: 08-01-2021 End: 04-65-0321Bxowqcgko department patient visitPHYSICIAN NO FAMILY Facility:[facility]tart: 07-31-2021 End: 48-75-0434Rlsvddvda department patient visitLisa Hale Work Phone: [facility]-Emergency RoomStart: 07-25-2021 End: 66-22-4287ibtrmvroluSwjhdxb WatersFacility:[facility] Hospitaltart: 07-25-2021 End: 21-48-8004Oniergov ReferredLisa Hale Work Phone: [facility]-Lab Main CampusStart: 03-24-2021 End: 27-61-3006ldrxdlmvyfSafrqc Dymond Other noUniversity of [place] Other Start: 16-55-2257Luefii outpatient visit 15 minutes Shruthi DymondFPG Urgent Care ClydeStart: 01-23-2021 End: 29-43-6754hunptyzhamOieec Ginty Other [employer] Other Start: 91-25-4787Vecqeiyrb encounterAmber GintyFPG Urgent Care ClydeStart: 01-21-2021 End: 09-87-9190ihpnnmlvffXdwug Ginty Other noUniversity of [place] Other Start: 42-56-4751Eqqbqw outpatient visit 15 minutes Bailey GintyFPG [facility]gent Care Norberto Procedures DateProcedureProcedure DetailPerforming ClinicianStart: 34-73-0374WRH screening RESEARCH SUPPORT SPECIALIST JACKELIN GEOFFREYComment on above:Performed By: #### PSASC #### [facility] [address] [place] [address] Dr. Travis Turk: 08-13-2021H/O: vasectomyPatrick Sobeida CHAKRABORTY Start: 64-77-2572Uhmfjmcjkm of scrotum and contentsLisa Geoffrey Work Phone: Start: 59-44-9151Pqavrplvks of scrotum and contents Jackelin Geoffrey Work Phone: Start: 76-89-0687OpltvwtvpQgakqko WATERS H/O: vasectomyStatus post vasectomy( Confirmed )Patricio CHAKRABORTY H/O: vasectomyVasectomy statusChristopher Weight Work Phone: knee joint operationAltheRx Pharmaceuticals Tooth and periodontium operationAltheRx Pharmaceuticals Plan of Treatment DateCare ActivityDetailAuthorStart: 62-30-3899NqqhazensRegency Hospital [facility] Start: 50-54-2132Qslhijni to Social ServicesRegency Hospital [facility] Start: 49-02-3776Jjgrwsfv admissionCleveland Clinic Hillcrest Hospitaltart: 17-90-7328Oiwsleocb vaccinationINFLUENZA (#1)[facility]: 07-31-2021 Echography of scrotum and contentsUS scrotumRegency Hospital [facility] Start: 63-67-1805FCAIBCLPD B (1 of 3 - Risk 3-dose series)HEPATITIS B (1 of 3 - Risk 3-dose series)[facility]: 70-45-2596Zwntf microalbumin profile DTAP,TDAP,TD (1 - Tdap)[facility]: 56-99-5710CGREAB PCP TEAM CHRONIC DISEASE VISITANNUAL PCP TEAM CHRONIC DISEASE VISITClermont County Hospitaltart: 12-40-2195Dhwqadjdl B surface antibody levelLDL CHOLESTEROLUniversity Hospitals Ahuja Medical Center Start: 80-74-0013NFVCCDMIN C SCREENINGHEPATITIS C SCREENINGUniversity Hospitals Ahuja Medical Center Start: 84-14-6534TGF SCREENINGHIV SCREENINGClermont County Hospitaltart: comp foot exam completedDIABETIC FOOT EXAMClermont County Hospitaltart: 1998 Hepatitis B screeningURINE ALBUMIN:CREATININE RATIOClermont County Hospitaltart: 13-01-8152Ncgdcmgzm C antibody, confirmatory testDILATED RETINAL EXAMClermont County Hospitaltart: 28-63-6196KBSONIHNAJGJ (1 - PCV)PNEUMOCOCCAL (1 - PCV)[facility]: 58-65-1413Tjvlbmkvmm A1c/Hemoglobin.total in TtzlsTPM1AVcolibthg ClinicStart: 82-25-7036OEGBP-19 VACCINE (#1)COVID-19 VACCINE (#1)[facility]: 90-59-7893OQMSYSMBR B (1 of 3 - 3-dose series)HEPATITIS B (1 of 3 - 3-dose series)[facility] CenterPatient EducationSycamore [facility] Ctr Work Phone: Patient referralSycamore Medical Center Ctr Work Phone: URINALYSIS, REFLEX MICROSCOPICURINALYSIS, REFLEX MICROSCOPIC Lab Routine Screening for genitourinary condition Ordered: [address] [place] [address] Work Phone: comment on above:Or[facility]: [facility] Immunization DateImmunizationNotesCare VspynpctMsdspjas15-29-3270urpdafa toxoid, reduced diphtheria toxoid, and acellular pertussis vaccine, adsorbedJENNIFER CHESTER [facility]05-14-2002measles, mumps and rubella virus vaccineJENNIFER CHESTER [facility]08-23-1995DTaP, unspecified formulationJENNIFER CHESTER [facility] [facility]Hib, unspecified formulationJENNIFER CHESTER [facility]01-11-1991Hib, unspecified formulationJENNIFER CHESTER [facility]01-11-1991measles, mumps and rubella virus vaccineJEAYDEE BRIGGS [facility] Payers DatePayer CategoryPayerPolicy ID2020[place] [facility] [place] MED[place] [id number] 2019-Present [phone] [address] [place] [address] [id number] [place] [facility] [place] [id number] 2019-Present [phone] [address] [place] [address] Medicaid [id number] 2.840.1.419593.3.57[id number] 2.16840.1.676565.3.57[id number] 2.16.840.1.520717.3.579.2.62551-66-8690Pnkxfdd2102775 2.16.840.1.417990.3.579.2.65319-00-9137Bkuepim6667272 2.16.840.1.034091.3.579.2.43534-30-9085Rkwpsdr6146306 2.16.840.1.547319.3.579.2.73699-60-6840Hsmnwsa0529241 2.16.840.1.886291.3.57[id number] 2.16.840.1.082412.3.579.2.64976-40-7945Hkenffr6431804 2.16.840.1.854372.3.579.[id number] 2.16.840.1.000310.3.57[id number] 2.16.840.1.672954.3.579.2.55980-16-3586Grufzyl7597569 2.16840.1.906283.3.579.2.29311-33-1252Pktkdxq7569172 2.16840.1.443262.3.57[id number] 2.840.1.290904.3.579.2.60193-03-2019Emzshgf0043756 2.840.1.224402.3.579.2.85067-74-1869Lenzzmm8654036 2.840.1.120546.3.579.2.62113-65-1692Jcgsttc8588642 2.840.1.130914.3.579.2.19818-98-6115Bxougze6703769 2.16840.1.646924.3.579.2.46658-09-8536Pndfgnj1926302 2.840.1.679161.3.579.2.52409-75-7138Pdxfmms7329944 2.16840.1.774698.3.579.2.22789-16-9823Moptsoq7060928 2.16840.1.466191.3.57[id number] 2.16840.1.194557.3.579.2.45474-92-5155Jywtwop77049375 2.16840.1.829592.3.57[id number] 2..0.1.827385.3.57[id number] 2..840.1.145925.3.579.2.08523-73-7451Cmjbbjv42788050 2.0.1.002594.3.579.2.75718-18-8561Rkajsij85664161 2.0.1.638703.3.579.2.91450-90-8388Fmmwjcp28872599 2.0.1.171164.3.579.2.19714-11-3698Uqdqbgd97153682 2.0.1.377223.3.579.2.727 [id number]-bpl 8ah47lfm-i10u-[id number] / es90hz2m-[id number] 2.0.1.162742.19Unknown [id number] 2.0.1.594099.3.579.2.219Fyhrtaj52260789 2..1.979499.3.579.2.108Hcltmbo04165018 2.0.1.737376.3.579.2.531 [id number] 2.0.1.949804.3.579.2.531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Industrial [employer] [id number] Social History DateTypeDetailFacilityStart: 94-09-6131Fpihkim smoking status NHISEx-smoker (finding)[facility] End: 57-34-1305Dhbbyqf of tobacco useNort [employer] Other Start: 54-92-5568Gty [facility] At [facility]: 06-09-2021 End: 53-80-5287Irpddao smoking statusLight tobacco smoker (finding)[facility] Tobacco smoking statusSmokeless tobacco user within last 30 daysExec[facility] [employer] Start: 07-31-2021 End: 78-04-1006Itvfomo smoking status NHISSmoker (finding)[facility]: 60-58-5948Ygiciug smoking status NHISSmokes tobacco daily [facility] Medical CenterHistory of tobacco useCigarette SmokerClermont County Hospitaltart: 76-24-0950Haebxuptmo smoked current (pack per day) - Reported0.5[facility] Start: 08-18-2021 End: 95-70-8198Ryooyli intakeLifetime non-drinker (finding)[facility] Start: 30-19-9216Xaedqfd SDOH Alcohol Tdberahcp1Qkhgzrogs ClinicStart: 56-99-6165Wmw Assigned At BirthNot on fileClermont County Hospitaltart: 08-18-2021 End: 82-66-7153Iiwbqhyj to SARS-CoV-2 (event)Not sureClermont County Hospitaltart: 10-07-2021 End: 88-15-0962Mrmuychk to SARS-CoV-2 (event)Unable to assessUniversity Hospitals Ahuja Medical Center Start: 92-35-3183Axaumnm smoking statusNever smoked tobacco (finding)[facility] Goals DatePatient GoalDesired Activity/State Functional Status SgbbFclhgjuwqlXmemheFulagdmq60-83-8058Uaulgqdlpx StatusN/AExec[facility]05-07-2023Functional StatusNo[facility]05-06-2023Functional StatusLouis [facility]04-06-2023 Functional StatusN/A[facility] Inna 97-00-4190Hbxzftnrtg statusPatient at [facility] Work Phone: [phone]) 823-44151110228-93-8176Qdcjsttkqj StatusN/A[facility]-10-2022Functional StatusN/A[facility]08-01-2022Functional StatusN/A [facility] Mental Status IyeoYateiethhmQtecbwFcjebwtd99-65-2824Hartgdtns functionCognitive Status [facility] Work Phone: Clinical Notes 01-21-2021 to 11-23-2022 Note Date & HqntDvwxSmrwjjws08-01-8870 Hospital Discharge instructions Patient Education 11/23/2022 12:58:10 Hypogonadism, Male [...] older. This is the main cause of thiscondition. Use of medicines, such as antidepressants, steroids, [...] therapy. Follow these instructions at home: Take qrxf-fdm-mwlyrgs and prescription medicines only as told by [...] for prostate cancer before putting you on testosteronetherapy. This information is not intended to replace advice given to you by your health care provider. Make sure you discuss any questions you have with your health care provider. Document Revised: 10/24/2020 Document Reviewed: 10/24/2020 [email or web address] Patient Education 2022 XtremIO. 11/23/2022 12:46:35 Overactive Bladder, Adult Overactive Bladder, [...] muscles thatmake your bladder squeeze too soon. This condition [...] your health care provider. General instructions Take rwec-fdj-thnoejh and prescription medicines only as told by [...] provider. Document Revised: 11/11/2020 Document Reviewed: 11/11/2020 [email or web address] Patient Education 2022 XtremIO. Follow Up Care 08/17/2022 11:49:19 With:PALMER TORREZ, Patricio Vidales, URL Address: [facility] [address], [place] [address]- [phone] When: Unknown Comments:sched brain MRI [facility] 05-08-2023 Evaluation + Plan noteExtracted from:Title: Discharge NoteAuthor:RENALDO TORREZ, DarylfoDate:07/13/22 Discharge To, Anticipated II - Home independently [...] Within 3 to 5 days [address] [place] [address]- [phone] Business (1) Additional Instructions: Call for followup appointment Hypotension, Zdrc-jr-Xvud Urinary Tract Infection, Adult Extracted from:Title:Admission H & PAuthor:Wilian SHI DO RDate:07/12/22 1. Syncope (R55: Syncope and collapse) Unclear cause. Patient did have an elevated D-dimer. He states he has had sick contacts recently. Silverio concerned for possibility of COVID-19. We will [...] deep vein thrombosis (DVT) prophylaxis (Z79.899: Other provider relations specialist (current) drug therapy) SCD, enoxaparin Orders: acetaminophen, [...] Daily, Routine, Start date 07/12/22 9:00:00 EDT, :21:00 EDT benzonatate, 100 mg = 1 cap(s), Cap, Oral, TID PRN Cough, Routine, Start date 07/12/22 2:52:00 EDT,07/12/22 2:52:00 EDT buPROPion, 300 mg = 1 [...] q6hr PRN Nausea, Routine, Start date 07/12/22 2:51:00EDT, 07/12/22 2:51:00 EDT oxybutynin, 10 mg = [...] Compression Device C-Reactive Protein Cardiac Monitoring COVID-19 ([facility]) Diabetic/Calorie Control Diet Ferritin Hypoglycemia Protocol Responsive Patient Hypoglycemia Protocol Unresponsive Patient Intake and Output Isolation Precautions Lactate Dehydrogenase Notify Provider Vital Signs Notify Provider Vital Signs Oxygen Protocol Place in Status Precautions Procalcitonin Resuscitation Status - Full Routine Capillary Glucose POC Weight Anticipated stay less than 2 midnights. Patient will be observation status. Extracted from:Title:ED NoteAuthor:Marietta Guerrero DO ADate:07/11/22 Hypoxia (R09.02: Hypoxemia) Syncope (R55: Syncope and collapse) Transient hypotension (I95.9: Hypotension, unspecified) Orders: ceftriaxone + Sodium Chloride 0.9% intravenous solution 50 mL, 1,000 mg = 1 EA, IV Piggyback, Once,Stop date 07/11/22 23:26:00 EDT, STAT, Start date 07/11/22 23:26:00 EDT, 100 mL/hr, Infuse over 30 minute(s), 07/11/22 23:26:00 EDT ondansetron, 4 mg = 2 mL, Injection, IV Push, Once, Stop date 07/11/22 20:12:00 EDT, STAT, Start date 07/11/22 20:12:00 EDT, 07/11/22 20:12:00 EDT Sodium Chloride 0.9% intravenous solution, 1,000 mL, Soln-IV, IV, Once, Stop date 07/11/22 20:12:00EDT, STAT, Start date 07/11/22 20:12:00 EDT, Infuse [...] Saturation PT & PTT Rapid COVID Antigen ([facility]) Saline Lock Insert Troponin 0 Hr. Troponin 3 Hr. Troponin 6 Hr. Troponin 9 Hr. UA With Cult Reflex Urine Culture Future Appointments Appointment Date:08/17/2022 10:30:00 AM Scheduled Provider:Patricio CHAKRABORTY MD Location:[facility] Appointment Type:URO Office Visit Future Scheduled Tests Laboratory* Semen Analysis Post Vasectomy 10/06/21 * Semen Analysis Post Vasectomy 10/06/21 [facility]05-08-2023 NoteFisher [facility] HospitalComment on above:Result Comment: Electronically Signed By: RENALDO TORREZ, Parvin\.br\Date and Time Signed: 07/13/22 10:19 [id number] Hospital Discharge instructions Patient Education 07/13/2022 10:17:27 Hypotension, Jmoc-nr-Bfya Hypotension As your heart beats, it forces [...] up quickly after you eat. Medicines Take ophj-wso-onnssia and prescription medicines only as told by [...] provider. Document Revised: 10/13/2021 Document Reviewed: 10/13/2021 [email or web address] Patient Education 2022 XtremIO. 07/13/2022 10:17:23 Urinary Tract Infection, Adult Urinary [...] Treatment for this condition includes: Antibiotic medicine. Jlgq-fby-lzhkfzk medicines to treat discomfort. Drinking enough water [...] Follow these instructions at home: Medicines Take jpei-knl-nbungfj and prescription medicines only as told by [...] provider. Document Revised: 10/04/2020 Document Reviewed: 10/04/2020 [email or web address] Patient Education 2022 XtremIO. Follow Up Care 07/11/2022 20:06:03 With:SHRUTHI DÍAZ Address: [address] [place] [address]- [phone] Business (1) When:07/17/2022 15:15:00 Comments:Call for followup appointment [facility]05-07-2023 Ozzy [facility] HospitalComment on above:Result Comment: Electronically Signed By: Wilian SHI DO\Date and Time Signed: 07/12/22 03:16 [id number] NoteCONSULTATION CONSULTATION DATE: 06/25/2022 TO: Shruthi Díaz [...] I have given him [address] to trial and to have available for [...] our patients to inform us about any byxz-hnp-ffznwex medications or herbal remedies/nutritional supplements/alternative remedies. 2. [...] treatment options with their primary care provider.[facility] CenterIbygmdtv52-03-5341 Hospital Discharge instructions Patient Education 06/11/2022 08:51:48 [...] fried and sweet foods. General instructions Take kmgd-yxa-qqketre and prescription medicines only as told by [...] 12/19/2009 Document Revised: 06/15/2019 Document Reviewed: 03/10/2018 [email or web address] Patient Education 2020 XtremIO. Follow Up Care 06/04/2022 15:50:17 With:CHESTER WANG, MARIANA Chacko, URL Address: [address] [place] [address] [phone] When: Unknown [facility] [place] 01-28-2023 Discharge summary Author Dell Kim [facility] April 04, 2022 11:32amNote Date/TimeJanuary 2022 11:[address] [address] Discharge Summary Signed Patient: Enio Raymond MR#: [id number] : 1990 Acct:[id number] Age/Sex: 31 / M Adm Date: 3 Loc: 1S Room: [address] [place] [address]: Dell Kim MD Copies to: [...] issues, reported sobriety Living: With family 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 The doses were increased during his hospitalization.He had gradual improvement of his symptoms of depression as time went on. He did not report any other suicidal thoughts. He did not exhibit any behavior concerning for suicidality. As symptoms improved he becamebrighter and attended groups. He was able to laugh and smile more on the unit as well. Hi s came to visit him during his hospitalization. [...] statedthat she would ensure that patient follows upwith outpatient services and will call for appointments. [...] [Referring] - Documented By: Dell Kim MD 04/04/221125 Signed By: <Electronically signed by eDll Kim MD> 04/04/22 113[address] [facility] Work Phone: 1(751) 626-933101-27-2023 Progress note Author Dell Kim [facility] April 03, 2022 1:47pmNote Date/TimeJanuary 2022 1:[place] [address] Psychiatry Progress Note Signed Patient: Enio Raymond MR#: [id number] : 1990 Acct:[id number] Age/Sex: 31 / M Adm Date: 3 Loc: Room: [address] [place] [address] Type : ADM IN Attending Dr: Dell [...] alternatives explained Documented By: Dell Kim MD 04/03/221345 Signed By: <Electronically signed by Dell Kim MD> 04/03/221346 [facility] Work Phone: 1(640) 924-972101-26-2023 History and physical note Author Dell Kim [facility] April 02, 2022 1:07pmNote Date/TimeJanuary 2022 1:03pmGeorgetown[place] [address] Psychiatry H&P Signed Patient: Enio Raymond MR#: [id number] : 1990 Acct:[id number] Age/Sex: 31 / M Adm Date: 3 Loc: Room: [address] [place] [address] Type: ADM IN Attending Dr: Dell Kim [...] issues, reported sobriety Living: With family 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 Extrem: normal to inspection [...] History (Updated 07/31/21 @ 22:12 by Laine Kent, NGUYEN) History of arthroscopy of both knees History [...] (Wellbutrin XL) 300 mg PO QAM 10/07/20 [HistoryConfirmed 04/01/22] aripiprazole 5 mg tablet (Abilify) 5 [...] signed by Dell Kim MD> 04/02/22 [address] [facility] Work Phone: [phone]) 820-206412-12-2022 Hospital Discharge instructions Patient Education 02/16/2022 08:54:53 [...] fried and sweet foods. General instructions Take rjpz-ejf-lorhvbl and prescription medicines only as told by [...] 12/19/2009 Document Revised: 06/15/2019 Document Reviewed: 03/10/2018 [email or web address] Patient Education 2020 XtremIO. Follow Up Care 12/15/2021 15:51:03 With:Patricio CHAKRABORTY MD, DENIS Address: [facility] [address] [place] [address]- When: Unknown [facility] [place] 10-10-2022 Hospital Discharge instructions Patient Education 12/15/2021 [...] nerve stimulation). For women, using a medical lab technologist to prevent urine leaks. This is a [...] right after experiencing incontinence. General instructions Take bisq-jpi-ikwtcng and prescription medicines only as told by [...] 04/01/2005 Document Revised: 03/04/2018 Document Reviewed: 06/03/2017 [email or web address] Patient Education 2020 XtremIO. Follow Up Care 10/06/2021 12:21:17 With:PALMER TORREZ, DENIS Valdez Address: [facility] [address] [place] [address]- [phone] When:02/23/2022 [facility] [place] 08-25-2022 NoteHNO ID: [id number] Author: Viktor Gilbert MD Service: ? Author [...] Spent: 21-30 minutes Viktor Gilbert MD, MS, [facility] Ashley Joyce Department of Cardiovascular Medicine [address], [place] [address] Appointments: (Cardiology); (Vascular Medicine) This note was dictated using a voice recognition software. Please excuse any inadvertent typographical/grammatical/syntax errors that may have escaped the final proofread. Please don't hesitate to contact my office for any clarification.[facility]08-25-2022 History of Present illness Narrative* [...] Spent: 21-30 minutes Viktor Gilbert MD, MS, [facility] Ashley Joyce Department of Cardiovascular Medicine [address], [place] [address] Appointments: (Cardiology); (Vascular Medicine) This note was dictated using a voice recognition software. Please excuse any inadvertent typographical/grammatical/syntax errors that may have escaped the final proofread. Please don't hesitate to contact my office for any clarification. documented in this encounterUniversity Hospitals [facility] Center08-01-2022 Hospital Discharge instructions Patient Education 10/06/2021 12:05:20 [...] help you get to a healthyweight. Take oslq-lbb-afpfbyy and prescription medicines only as told by [...] 04/14/2006 Document Revised: 10/10/2018 Document Reviewed: 10/10/2018 [email or web address] Patient Education [employer] Follow Up Care 10/01/2021 14:34:21 With:PALMER TORREZ, Patricio Vidales, URL Address: [facility] [address], [place] [phone] When:Within 2 Month(s) [facility] 07-19-2022 NoteHNO ID: [id number] Author: Tahir Dejesus MD Service: ? Author Type: Physician Type: Progress Notes Filed: 10/06/2021 8:48 AM Note Text: PATIENT: Enio Raymond [id number] REFERRING MD: Self 09/23/2021 Chief Complaint Post op History of Present Illness Enio Raymond is a very pleasant 30 year old male who presents for post op check up Had recent vasectomy from [facility] urologist office with severe scrotal [...] for Dr. Tahir Dejesus by Goran Nuñez, biomedical instrument technician, on September 23, 2021 I agree with the Chief Complaint, ROS, and Past Histories independently gathered by the clinical client support manager including scribe and or medical student and or MIGUEL and or resident or fellow and the remaining scribed note accurately describes my personal service to the patient. Tahir Dejesus MD, MS [facility]07-19-2022 History of Present illness Narrative* Tahir Dejesus MD - 09/23/2021 4:00 PM EDT PATIENT: Enio Raymond [id number] REFERRING MD: Self 09/23/2021 Chief Complaint Post op History of Present Illness Enio Raymond is a very pleasant 30 year old male who presents for post op check up Had recent vasectomy from [facility] urologist office with severe scrotal [...] for Dr. Tahir Dejesus by Goran Nuñez, biomedical instrument technician, on September 23, 2021 I agree with the Chief Complaint, ROS, and Past Histories independently gathered by the clinical client support manager including scribe and or medical student and or MIGUEL and or resident or fellow and the remaining scribed note accurately describes my personal service to the patient. Tahir Dejesus MD, MS [facility] documented in this encounterUniversity Hospitals Ahuja Medical Center07-19-2022 NotePatient Outreach (UROLMN) ENIO RAYMOND ([id number]) 1990 M T Date Time Provider Department 09/23/21 TAHIR DEJESUS During your visit today, we recorded the following information about you: Allergies As of Date: 09/23/2021 (No Known Allergies) Date Reviewed: 09/23/2021 Reviewed by: Rell Gallegos MA - Fully Assessed Visit Diagnosis:Screening for genitourinary condition [Z13.89] Order(s):URINALYSIS, REFLEX MICROSCOPIC [YTW5711] Order #: [id number]. #:[id number] Prescriptions as of 09/26/2021 - warfarin (COUMADIN) [...] 08/27/2021 Encounter Status:Closed by KATALINA BILLINGS on 09/26/21[facility] 09-10-2021 Miscellaneous Notes* Telephone Encounter - Alana Douglass Tin - 09/10/2021 3:46 PM EDT Returned call to patient's . Incision edges are no longer approximated. No drainage. PCP put patient on antibiotics. They are keeping a DSD on it. Advised to monitor but it is okay to wait to seeDr. Weight until scheduled follow up appt. Mrs. Raymond verbalized understanding. All questions answered. Alana Castle RN documented in this encounterUniversity Hospitals Ahuja Medical Center06-21-2022 History of Past illness Narrative* ProblemNoted DateResolved DateOther chest pain Last Assessment & Plan: 08/26 c/o RCW and R shoulder pain radiating to R upper arm, denies SOB. ECG and troponin series unremarkable. Resolved with IV fentanyl. 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 S/p 750cc albumin with good response PLAN: -Fluid bolus prn -Consider pressors if stops responding to fluid Khljmbxvjdjnpucrbjkd70/09/202206/ Last Assessment & Plan: Trigs 1444, propofol stopped. Precedex added PLAN: -- recheck and add statin if indicated Obstructive sleep apnea/ Last Assessment & Plan: Non compliant with CPAP at home PLAN: - extubate to BiPAP today documented as of this encounter (statuses as of 09/10/2021) [facility]06-21-2022 History of Past illness Narrative* ProblemNoted Date Resolved DateOther chest pain/ Last Assessment & Plan: 08/26 c/o RCW and R shoulder pain radiating to R upper arm, denies SOB. ECG and troponin series unremarkable. Resolved with IV fentanyl. 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 S/p 750cc albumin with good response PLAN: -Fluid bolus prn -Consider pressors if stops responding to fluid Erobdselytlakccnaptg10/09/202206/ Last Assessment & Plan: Trigs 1444, propofol stopped. Precedex added PLAN: -- recheck and add statin if indicated Obstructive sleep apnea Last Assessment & Plan: Non compliant with CPAP at home PLAN: - extubate to BiPAP today documented as of this encounter (statuses as of 09/26/2021) [facility]06-21-2022 History of Past illness Narrative* ProblemNoted Date Resolved DateOther chest pain/ Last Assessment & Plan: 08/26 c/o RCW and R shoulder pain radiating to R upper arm, denies SOB. ECG and troponin series unremarkable. Resolved with IV fentanyl. 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 S/p 750cc albumin with good response PLAN: -Fluid bolus prn -Consider pressors if stops responding to fluid Iyzxukboenwgxblhsihv43/09/202206 Last Assessment & Plan: Trigs 1444, propofol stopped. Precedex added PLAN: -- recheck and add statin if indicated Obstructive sleep apnea Last Assessment & Plan: Non compliant with CPAP at home PLAN: - extubate to BiPAP today documented as of this encounter (statuses as of 10/06/2021) [facility]06-21-2022 History of Past illness Narrative* ProblemNoted Date Resolved DateOther chest pain Last Assessment & Plan: 08/26 c/o RCW and R shoulder pain radiating to R upper arm, denies SOB. ECG and troponin series unremarkable. Resolved with IV fentanyl. 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 S/p 750cc albumin with good response PLAN: -Fluid bolus prn -Consider pressors if stops responding to fluid Szmjwopyczjrevenpzwo55/09/202206/13/2022 Last Assessment & Plan: Trigs 1444, propofol stopped. Precedex added PLAN: -- recheck and add statin if indicated Obstructive sleep apnea Last Assessment & Plan: Non compliant with CPAP at home PLAN: - extubate to BiPAP today documented as of this encounter (statuses as of 10/30/2021) [facility]06-08-2022 Hospital Discharge instructions Patient Education 08/13/2021 12:24:12 [...] an athletic support cup for comfort. Take zfon-utm-kolrdrl and prescription medicines only as told by [...] 03/27/2011 Document Revised: 02/04/2018 Document Reviewed: 05/10/2017 [email or web address] Patient Education 2020 [employer]. Follow Up Care 08/12/2021 16:38:44 With:PALMER TORREZ, Patricio Vidales, URL Address: [facility] [address], [place] [address]- When: Unknown [facility] 01-17-2022 Evaluation note* Encounter Date Diagnosis Assessment Notes Treatment Notes Treatment Clinical Notes Mar, Contact with and (saavedra spected) exposure to other viral communicable diseases (ICD-10 - Z20.828) Mar,Viral upper respiratory illness (ICD-10 - J06.9) Drink plenty fluids and get plenty of rest. Stop the cefdinir. Take the Zithromax and Medrol Dosepak as prescribed until gone. Use the albuterol inhaler as prescribed as needed for cough or shortnessof breath. Follow-up with your family physician and request COVID PCR test today. Follow-up with your family physician if no improvement in 2 to 3 days. Mar,ther Additional time spent conducting pre-visit phone call, screening for symptoms, instructions on social distancing, application and removal of PPE, and cleaning of examination room, equipment and supplies was preformed. Patient education given for testing methodology and results. Patient care instructions given in writting by [facility] document. [facility] Other 11-16-2021 Evaluation note* Encounter Date Diagnosis Assessment Notes Treatment Notes Treatment Clinical Notes Jan, Contact with and (saavedra spected) exposure to other viral communicable diseases (ICD-10 [...] to keep fluids or food down, persistent vomiting/diarrhea), abdominal pain, lethargy, severe headache. Patient was provided with education hand sheet. Patient verbalizes understanding and is agreeable to treatment plan Jan,OtherAdditional time spent conducting pre-visit phone call, screening for symptoms, instructions on social distancing, application and removal of PPE, and cleaning of examination room, equipment and supplies was preformed. Patient education given for testing methodology and results. Patient care instructions given in writting by [facility] document [facility] Other Evaluation + Plan note No data available for this section [facility] Evaluation + Plan note Future Appointments Appointment Date:12/15/2021 01:15:00 PM Scheduled Provider:Patricio CHAKRABORTY MD Location:[facility] Appointment Type:URO Office Visit Diagnostic Tests Pending * Electrolyte Panel 10/06/21 Future Scheduled Tests Laboratory* Semen Analysis Post Vasectomy 10/06/21 * Semen Analysis Post Vasectomy 10/06/21 [facility] evaluation + Plan note Future Appointments Appointment Date:02/16/2022 01:15:00 PM Scheduled Provider:Patricio CHAKRABORTY MD Location:[facility] Appointment Type:URO Office Visit Diagnostic Tests Pending * Electrolyte Panel 12/15/21 Future Scheduled Tests Laboratory* Semen Analysis Post Vasectomy 10/06/21 * Semen Analysis Post Vasectomy 10/06/21 [facility] evaluation + Plan note Future Appointments Appointment Date:08/17/2022 10:30:00 AM Scheduled Provider:Patricio CHAKRABORTY MD Location:[facility] Appointment Type:URO Office Visit Future Scheduled Tests Laboratory* Semen Analysis Post Vasectomy 10/06/21 * Semen Analysis Post Vasectomy 10/06/21 [facility] evaluation + Plan note Future Appointments Appointment Date:03/29/2023 11:15:00 AM Scheduled Provider:Patricio CHAKRABORTY MD Location:[facility] Appointment Type:URO Office Visit Diagnostic Tests Pending * Testosterone Level Total 11/23/22 * Prolactin Level 11/23/22 [facility] evaluation noteNo assessment information available [facility] Work Phone: Evaluation noteNo InformationNort [employer] Other Evaluation note* Diagnosis Screening for genitourinary condition Screening for other and unspecified genitourinary condition documented in this encounter [facility] Diagnosis Vasectomy status- Primary documented in this encounter [facility] note* Diagnosis Multiple subsegmental pulmonary emboli without acute cor pulmonale (HCC)- Primary Anticoagulation management encounter Encounter for therapeutic drug monitoring documented in this encounter [facility] note* Diagnosis Onset Date Resolution Status Depression acute [facility] Work Phone: Hisahtq general Narrative - Reported* Type Description Date Medical History fx rt great toe Medical Historydiabetes mallitusMedical Historymood disorderSurgical History arthroscopic knee surgery [facility] Other Hospital Discharge instructions No data available for this section [facility] Additional Instructions Regular Diet No Activity [facility] Work Phone: Progress note No data available for this section [facility] Chief Complaint and Reason for Visit Chief Complaint Desired Sterilizatio n Chief Complaint Desired Sterilizatio n Urogenital Swelling s/p vasectomy Chief Complaint Desired Sterilizatio n Urogenital Swelling s/p vasectomy Cold Sweats, Scrotum Pain, loss of control of blad Chief Complaint MDD Reason for Visit Depression Advance Directives Advance Directive Response Recorded Date/ Time Advance Directives No March 22, 2020 6:22am TypeDate RecordedPatient RepresentativeExplanationAdvance Directive(s)08/13/2021 5:01 PM Advance Directive Response Recorded Date/ Time Advance Directives No March 22, 2020 5:22am Summary Purpose Family History Relationship Condition Age at Onset Recorded Date/T danelle father Bipolar affective disorder Unknown brotherBipolar affective disorderUnknownNo Family History Records Found Additional Source Comments Care Teams (unrecognized sec tion and content) Personnel Name: SHRUTHI DÍAZ CNP Address: Address: [address] [place] [address] Team Status: Inactive Member Role Status Dates Jackelin Hale Primary Care Provider Active Ivan Quinones ProviderActive Team Status: Active Member Role Status Dates Jackelinkemar Hale Primary Care Provider Active Team Status: Inactive Member Role Status Dates PHYSICIAN NO FAMILY Primary Care Provider Active Garfield Jean Jr ProviderActive Team Status: Active Member Role Status Dates PHYSICIAN NO FAMILY Primary Care Provider Active Team Status: Inactive Member Role Status Dates PHYSICIAN NO FAMILY Primary Care Provider Active Garfield Kovacs ProviderActive Team Status: Inactive Member Role Status Dates PHYSICIAN NO FAMILY Primary Care Provider Active Kate Boss Provider, Attending ProviderActive Goals (unrecognized section and content) Goals may [...] section and content) DATE CREATED AUTHOR 08/14/2021 [facility] DATE CREATED AUTHOR AUTHOR'S ORGANIZ ATION 04/04/2022 [facility] DATE CREATED AUTHOR AUTHOR'S ORGANIZ ATION 07/17/2022 [facility] DATE CREATED AUTHOR AUTHOR'S ORGANIZ ATION 09/22/2022 [facility] DATE CREATED AUTHOR AUTHOR'S ORGANIZ ATION 12/11/2022 [facility] REASON FOR VISIT (unrecogniz ed section and content) ReasonCommentsFollow UpReasonCommentsReturning Patient's Call#11 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, SOB, COUGH#6 EXPOSURE, COUGH, LOSS OF SMELL X3 DAYS, COVID Provider Visit Source Comments (unrecognize d section and content) In the event this informatio n is protected by the Federal Confidentiality of Alcohol and Drug Abuse Patient Records regulations: The Federal rules restrict any use of the information to criminally investigate or prosecute any alcohol or drug abuse patient.[facility] the event this information is protected by the Federal Confidentiality of Alcohol and Drug Abuse Patient Records regulations: The Federal rules restrict any use of the information to criminally investigate or prosecute any alcohol or drug abuse patient.[facility] the event this information is protected by the Federal Confidentiality of Alcohol and Drug Abuse Patient Records regulations: The Federal rules restrict any use of the information to criminally investigate or prosecute any alcohol or drug abuse patient.[facility] Center[facility] the event this information is protected by the Federal Confidentiality of Alcohol and Drug Abuse Patient Records regulations: The Federal rules restrict any use of the information to criminally investigate or prosecute any alcohol or drug abuse patient.[facility] FOR RECORDS PERTAINING TO PATIENTS WHO ARE [...] BE BASED ON THE PRIMARY CLINICAL RECORDS. [facility]. provides no warranty or guarantee of the accuracy or completeness of information in this document.
== END 2025-01-30 14:00 | disposition home or self-care (01) ==
LOC: LAB 14:01
PROVIDERS: Family Provider Family Medicine; PCP Nurse Practitioner Family; Visit Provider Nurse Practitioner Family
DX: E29.1 Testicular hypofunction (principal); E11.9 Type 2 diabetes mellitus without complications
CPT/HCPCS: 36415; 83036; 84403

== ENCOUNTER 2025-02-04 19:39 | Emergency (ER) | payer OTHER, SELFPAY ==
--- OUTSIDE RECORDS SUMMARY | 2024-04-28 04:51 | XMS_ITS | Continuity of Care Document ---
Author Organization [facility] Address [address] [place] [address] Phone Care Team Providers Care Bagman/Woman Name Role Phone Mati Salgado DMD Unavailable Unavailable Allergies, Adverse Reactions, Alerts Substance Reaction Status Criticality No Known Allergies Active No Inform ation Medications Medication Instructions Dosage Effective Dates (start - stop) Status Comments ibuprofen 800 mg tablet take 1 tablet by oral route 3 times every day with food as needed 800 MG - Active Ozempic 0.25 mg or 0.5 mg (2 mg/3 mL) subcutaneous pen injector inject (0.5MG) by subcutaneous route every week on the same day of each week 0.5 MG - Active imipramine 50 mg tablet take 1 tablet by oral route every day 50 MG - Active Tylenol Extra Strength 500 mg tablet take 2 tablet by oral route every 6 hours as needed 1000 MG - Active ibuprofen 200 mg capsule take 1 capsule by oral route every 6 hours as needed 200 MG - Active amoxicillin 500 mg tablet take 1 tablet by oral route every 8 hours 500 MG - No Longer Active insulin aspar prot-insulin aspart 100 unit/mL (70-30) subcutaneous pen inject by subcutaneous route as per insulin protocol 0.00 - No Longer Active metformin 500 mg tablet take 1 tablet by oral route 2 times every day with morning and evening meals 500 MG - No Longer Active pregabalin 25 mg capsule take 1 capsule by oral route 3 times every day 25 MG - No Longer Active Procedures Procedure Date Bitewig-single Film Intraoral-periapical 1st Film Limited Oral Eval High Risk Prophylaxis Adult Nutrit Couns For Control Of [place] Dis Oct Oral Hygiene Instruction Oral Hygiene Instruction Resin Composite 2s; Posterior 4 Resin Composite 1s; Posterior 4 Intraoral-complete Series (bw) Oral Hygiene Instruction Comp Oral Eval New/estab Patient 2023 Advance Directives Directive Yes / No Effective Date File Name No Information Encounters Encounter Description Practice Location Reason(s) For Visit Diagnoses Date Provider Providers Copied on Encounter [facility], [address] [place] [address], [id number], [place] tel:[phone] Dental Clinic dental emergency (chief complaint) Encounter for screening for dental disorders Naomi Thorne. [address] [place] [address], [id number], [place]. tel:[phone] [facility], [address] [place] [address], [id number], [place] tel:[phone] Dental Clinic [place] (chief complaint) Encounter for screening for dental disorders Naomi DMD Mati. [address] [place], [place], [id number], [place]. tel:[phone] [facility], [address] [place] [address], [id number], [place] tel:[phone] Dental Clinic filling (chief complaint) Encounter for screening for dental disorders Naomi DMD Mati. [address] [place], [place], [id number], [place]. tel:[phone] [facility], [address] [place] [address], [id number], [place] tel:[phone] Dental Clinic dn (chief complaint) Encounter for screening for dental disorders Naomi DMD Mati. [address] [place], [place], [id number], [place]. tel:[phone] Family History Family Member Type Diagnosis Age At Onset No Information Payers Payer name Insurance type Covered constitution party ID Dada apple(s) [facility] [employer] id CFC [id number] D Medicaid ap - [facility] [id number] Social History Type Description Quantity Date Captured Comments Alcohol Use Details Unknown Caffeine Use Details Unknown Tobacco Use Status No Information Smoking Status No Information Sex Male Sexual Orientation Straight or heterosexual July Gender Identity Male Chief Complaint And Reason For Visit From encounter dated '04/28/2024 09:51'. dental emergency (chief complaint). Description: dental emergency Reason For Referral Reason For Referral No Information Plan Of Treatment Date Type Action Status Goal PRAPARE ASSESSMENT. Due on due Goal Tdap Vaccine. Due on 2024 due Goal RLP. Due on due Goal Depression screening. Due on due Goal Influenza vaccine. Due on due Goal Hepatitis C screening. Due o n due Goal Unhealthy drug use screening . Due on due Goal Tdap. Due on due Goal Hepatitis C screening. Due o n due Goal PRAPARE ASSESSMENT. Due on A due Goal Hep A. Due on du e Goal RLP. Due on due Goal Influenza vaccine. Due on due Goal Tdap. Due on due Goal Tdap Vaccine. Due on 2023 due Goal Unhealthy drug use screening . Due on due Goal Depression screening. Due on due Goal Unhealthy drug use screening . Due on due Goal Tdap. Due on due Goal Hep A. Due on du e Goal Hepatitis C screening. Due o n due Goal Depression screening. Due on due Goal Tdap Vaccine. Due on 2023 due Goal Influenza vaccine. Due on Au due Goal PRAPARE ASSESSMENT. Due on A due Goal RLP. Due on due Goal Hepatitis C screening. Due o n due Goal Depression screening. Due on due Goal RLP. Due on due Goal PRAPARE ASSESSMENT. Due on J due Goal Tdap Vaccine. Due on 2023 due Goal Influenza vaccine. Due on due Goal Hep A. Due on du e Goal Unhealthy drug use screening . Due on due Goal Tdap. Due on due History Of Present Illness Encounter Date Complaint History Of Prese nt Illness dental emergency dental emergenc y CHARLES Reinoso filling filling dn dn Functional Status Date Functional Assessmen t No Information Instructions Date Instruction Additional Infor mation No Information Assessments Type Assessment Date No Information Patient Care Teams Name Effective Dates (start - stop) Status Members No Information
--- OUTSIDE RECORDS SUMMARY | 2024-09-18 03:30 | XMS_ITS ---
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 Exam Encounters Encounter Location Date Provider Diagnosis [facility] [address] [place], [place] [id number] 09/18/2024 Lisa Siddiqui Plan Of Treatment No Information Progress Notes * Lincoln RAYMONDOB:1990 ([age] yo M)Acc No.[id number]:09/18/2024 Patient:?Sadiq Raymondan :?Lisa Siddiqui DMDDOB:1990???Age:33 Y ???Sex:MaleDate:09/18/2024Phone:[phone]:[address] [place], [place] [id number] Subjective: * Chief Complaints: * N P Comp Exam Billing Information: * Procedure Codes: * Electronic signature of Lisa Siddiqui DMD on 02/04/2025 at 09:01 PM ESTSign off status: Pending * Provider: Anneliese Siddiqui DMD Date: 0 09/18/2024 Generated for Printing/Faxing/eTransmitting on:?02/04/2025 09:01 PM EST
[2025-02-04] VITALS (13 sets, daily range): BP systolic 137–142; BP diastolic 96–103; PULSE 82–122; TEMP 37.3; O2SAT 97; BMI 31.2
--- NOTE | 2025-02-04 20:11 | ECG_ITS ---
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 Measurements Intervals [place] Rate: 96 P: 30 MN: 138 QRS: 75 QRSD: 96 T: 47 QT: 334 QTc: 387 Interpretive Statements 1100 Sinus rhythm 9110 normal ECG Compared to ECG 04/01/2022 13:18:00 Sinus tachycardia no longer present Electronically Signed On 02-04-2025 21:41:40 EST by JAYME SUTTON M.D.
[2025-02-04 20:29] LABS: Hematocrit 47.5 % (42.0-54.0); Hemoglobin 16.7 g/dL (14.0-18.0); Immature Granulocytes Abs Auto 0.02 10^3/uL (0.00-0.03); Immature Granulocytes Pct Auto 0.4 % (0.0-0.5); Lymphocytes Absolute Auto 1.8 10^3/uL (1.2-3.8); Mean Corpuscular HGB Conc 35.2 g/dL (29.9-35.2); Mean Corpuscular Hemoglobin 33.1 pg (25.9-34.0); Mean Corpuscular Volume 94.2 fL (80.0-94.0); Platelet Count 234 10^3/uL (150-450); Red Blood Count 5.04 10^6/uL (4.70-6.10); White Blood Count 5.6 10^3/uL (4.0-11.0)
[2025-02-04] MEDS: 0.9 % SODIUM CHLORIDE 1,000 ML 1000 ML IV (20:30)
--- NOTE | 2025-02-04 20:36 | ED.GENADUL1 ---
HPI HPI - General Adult General Chief complaint: Psychiatric Symptoms Stated complaint: mental health Time Seen by Provider: 02/04/25 19:41 Source: patient Mode of arrival: Wheelchair History of Present Illness HPI narrative: Patient is a 34-year-old male, history significant for provoked pulmonary embolism 3 years ago suspected from COVID-19 and type 2 diabetes, presenting to the emergency department with his mother for concerns of suicidal ideation. The patient has been progressively getting more depressed over the last couple months. He has a history of depression and takes Wellbutrin. He does have a history of suicide attempts with the intentional drug overdose in the past. He denies any ingestions tonight. He does endorse suicidal ideation, denies homicidal ideation. He denies visual auditory hallucinations. He is otherwise asymptomatic without systemic symptoms such as chest pain, shortness of breath, fevers, chills, abdominal pain, nausea, or vomiting. There are no weapons accessible to the patient in the house where he lives. Currently lives with his mother, from his not too long ago. He also experienced loss of his infant child 5 years ago. Additionally, he recently lost his job and had to move back in with his parents for financial reasons. Related Data Home Medications ?Medication ?Instructions ?Recorded ?Confirmed imipramine pamoate 100 mg capsule 200 mg PO BEDTIME 08/04/23 02/04/25 atomoxetine 40 mg capsule 80 mg PO DAILY 08/21/24 02/04/25 blood sugar diagnostic (OneTouch 08/21/24 08/21/24 Ultra Test strips) syringe with needle 3 mL 23 gauge 08/21/24 08/21/24 x 1 1/2 (BD Luer-Ana Syringe) testosterone cypionate 200 mg/mL 200 mg IM Q7D 08/21/24 02/04/25 intramuscular oil Allergies Allergy/AdvReac Type Severity Reaction Status Date / Time No Known Drug Allergies Allergy Verified 08/21/24 23:25 Opioid HPI Opioid Management Most Recent Opioid Data: Last Pain Scale 5 08/22/24, 01:01 Review of Systems ROS Status of ROS 10 or more systems reviewed and unremarkable except as noted in history and below [facility] Medical History History of pulmonary embolism ?Z86.711 - Personal history of pulmonary embolism (ICD-10) Diabetes ?E11.9 - Type 2 diabetes mellitus without complications (ICD-10) Gangrene ?I96 - Gangrene, not elsewhere classified (ICD-10) Pulmonary embolus ?I26.99 - Other pulmonary embolism without acute cor pulmonale (ICD-10) Diabetic acidosis, type II ?E11.10 - Type 2 diabetes mellitus with ketoacidosis without coma (ICD-10) Acute hyperglycemia ?R73.9 - Hyperglycemia, unspecified (ICD-10) Surgical History Seagraves teeth extracted ?K08.409 - Partial loss of teeth, unspecified cause, unspecified class (ICD-10) H/O vasectomy ?Z98.52 - Vasectomy status (ICD-10) Family History Grandfather Family history of cancer Grandmother Family history of cancer Social History Within the past year, how often did you have a drink containing alcohol: never Score interpretation: A score less than 4 is consistent with normal alcohol consumption. Smoking status: Current every day smoker Do you use any of these nicotine containing products: vaping products Non-prescribed substance use: denies use Previous occupational history: none Highest level of school completed/degree received: high school graduate Are you now , , , , never or living with a partner: In a typical week, how many times do you talk on the telephone with family, friends, or neighbors: once per week How often do you get together with friends or relatives: once per week How often do you attend quaker or hoahaoism services: never Do you belong to any clubs or organizations such as quaker groups unions, fraternal or athletic groups, or school groups: no Total score: 1 Score interpretation: A score of less than or equal to 1 indicates the most socially isolated. Little interest or pleasure in doing things: not at all Feeling down, depressed, or hopeless: not at all Feel stressed/tense/nervous/anxious/difficulty sleeping: only a little Do you think of yourself as: straight/heterosexual Gender Identity: male Exam Narrative Exam Narrative: CONSTITUTIONAL: Patient appears depressed with flat affect, he is tearful and answering questions in one-word sentences, calm and cooperative and not responding to internal stimuli SKIN: Was warm and dry. EYES: Sclerae white. EARS, NOSE, THROAT: Moist oral mucosa. RESPIRATORY: Clear to auscultation bilaterally, no wheezes, crackles, or stridor, no use of accessory muscles CARDIOVASCULAR: Normal rate and regular rhythm. There is no S3, S4, murmur, rub. GASTROINTESTINAL: Abdomen is nondistended. MUSCULOSKELETAL: No peripheral edema. NEUROLOGIC: Patient is awake and alert. Facies were symmetrical. Constitutional Vital Signs, click to edit/add: Last Vital Signs Temp 99.2 F 02/04/25 19:42 Pulse 122 H 02/04/25 19:42 Resp 20 02/04/25 19:42 BP 142/103 H 02/04/25 19:42 Pulse Ox 97 02/04/25 19:42 Course Vital Signs Vital signs: Vital Signs Temperature 99.2 F 02/04/25 19:42 Pulse Rate 122 H 02/04/25 19:42 Respiratory Rate 20 02/04/25 19:42 Blood Pressure 142/103 H 02/04/25 19:42 Pulse Oximetry 97 02/04/25 19:42 Temperature 99.2 F 02/04/25 19:42 Pulse Rate 122 H 02/04/25 19:42 Respiratory Rate 20 02/04/25 19:42 Blood Pressure 142/103 H 02/04/25 19:42 Pulse Oximetry 97 02/04/25 19:42 Medical Decision Making MDM Narrative Medical decision making narrative: Patient is a 34-year-old male presenting to the emergency department with his mother for concerns of depression and suicidal ideation. Vital signs on arrival were significant for tachycardia, however this promptly resolved by the time I evaluated him. He is otherwise afebrile and hemodynamically stable. Patient overall appears depressed and tearful. He is answering questions in one-word sentences. He has a normal physical examination otherwise. Laboratory studies were obtained to medically clear the patient. Laboratory studies were unremarkable. No significant electrolyte or metabolic derangement. No evidence of acute kidney injury. No anemia, leukocytosis, or thrombocytopenia. No transaminitis or hyperbilirubinemia. Negative salicylate, acetaminophen, alcohol level. Urine drug screen negative. 12 Lead EKG: Normal sinus rhythm at a rate of 96. Normal axis. No ST segment elevations. QRS, MN, and QTc interval within normal limits. Final impression: normal sinus rhythm without evidence of acute myocardial ischemia Patient is medically cleared. He spoke with the [facility] providers who recommended transfer to [facility] for psychiatric care. FINAL IMPRESSION: #Acute suicidal ideation DISPOSITION: Transfer to [facility] CONDITION: Fair Lab Data Lab results reviewed: Yes I reviewed the patient's lab results Labs: Lab Results 02/04/25 Range/Units 20:23 WBC 5.6 (4.0-11.0) 10^3/uL RBC 5.04 (4.70-6.10) 10^6/uL Hgb 16.7 (14.0-18.0) g/dL Hct 47.5 (42.0-54.0) % MCV 94.2 H (80.0-94.0) fL MCH 33.1 (25.9-34.0) pg MCHC 35.2 (29.9-35.2) g/dL RDW 12.4 (11.0-15.0) % Plt Count 234 (150-450) 10^3/uL MPV 11.2 (9.5-13.5) fL Neut % (Auto) 57.4 (43.0-75.0) % Lymph % (Auto) 32.6 (20.5-60.0) % Slope % (Auto) 8.0 (1.7-12.0) % Eos % (Auto) 0.7 L (0.9-7.0) % Baso % (Auto) 0.9 (0.2-2.0) % Neut # (Auto) 3.2 (1.4-6.5) 10^3/uL Lymph # (Auto) 1.8 (1.2-3.8) 10^3/uL Slope # (Auto) 0.5 (0.3-0.8) 10^3/uL Eos # (Auto) 0.0 (0.0-0.7) 10^3/uL Baso # (Auto) 0.1 (0.0-0.1) 10^3/uL Abs Immat Gran (auto) 0.02 (0.00-0.03) 10^3/uL Imm/Tot Granulo (auto) 0.4 (0.0-0.5) % Sodium 142 (136-145) mmol/L Potassium 3.8 (3.5-5.1) mmol/L Chloride 103 (98-107) mmol/L Carbon Dioxide 24.2 (21.0-32.0) mmol/L Anion Gap 18.6 BUN 12.0 (7.0-18.0) mg/dL Creatinine 0.88 (0.70-1.30) mg/dL Est GFR ( Amer) >60 (>=60 mL/min/1.73m^2) Est GFR (Non-Af Amer) >60 (>=60 mL/min/1.73m^2) BUN/Creatinine Ratio 13.6 Glucose 123 H (74-106) mg/dL Calcium 9.6 (8.5-10.1) mg/dL Total Bilirubin 0.8 (0.2-1.0) mg/dL AST 16 (15-37) U/L ALT 29 (16-63) U/L Alkaline Phosphatase 102 (46-116) U/L Total Protein 7.7 (6.4-8.2) g/dL Albumin 4.3 (3.4-5.0) g/dL Globulin 3.4 g/dL Albumin/Globulin Ratio 1.3 Salicylates <2.8 (<=19.9) mg/dL Acetaminophen <2.0 L (10.0-30.0) ug/mL Ethanol Quant <3 mg/dL ECG Data Attestation: I personally reviewed and interpreted this ECG as follows: Discharge Plan Discharge Chief Complaint: Psychiatric Symptoms Clinical Impression: Suicidal ideation, Depression Patient Disposition: [facility] Time of Disposition Decision: 21:54 Discharge Location: [facility] Condition: Fair Mode of Transportation: EMS
[2025-02-04 20:45] LABS: Alanine Aminotransferase 29 U/L (16-63); Albumin Globulin Ratio 1.3; Albumin Level 4.3 g/dL (3.4-5.0); Alkaline Phosphatase 102 U/L (46-116); Anion Gap 18.6; Aspartate Amino Transferase 16 U/L (15-37); Blood Urea Nitrogen 12.0 mg/dL (7.0-18.0); Calcium 9.6 mg/dL (8.5-10.1); Carbon Dioxide 24.2 mmol/L (21.0-32.0); Chloride 103 mmol/L (98-107); Estimated GFR (African America >60 (>=60 mL/min/1.73m^2); Estimated GFR (Non-African Ame >60 (>=60 mL/min/1.73m^2); Globulin 3.4 g/dL; Glucose 123 mg/dL (74-106); Potassium 3.8 mmol/L (3.5-5.1); Salicylate <2.8 mg/dL (<=19.9); Sodium 142 mmol/L (136-145); Total Protein 7.7 g/dL (6.4-8.2)
[2025-02-04 20:47] LABS: Acetaminophen <2.0 ug/mL (10.0-30.0)
--- OUTSIDE RECORDS SUMMARY | 2025-02-04 21:01 | XMS_ITS | Patient Health Record ---
Author Organization 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
--- OUTSIDE RECORDS SUMMARY | 2025-02-04 21:01 | XMS_ITS | CCD ---
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 Name Role Phone Jackelin Hale Primary Care Provider MD Patricio Chakraborty Attending Provider NONE, XXXX Primary Care Physician Unavailab le NO FAMILY, PHYSICIAN Primary Care Provider Unava ilable MD Oliver Diehl Jr Emergency Provider MD Segun Cho Emergency Provider [phone] Bailey Vanegas Unavailable Shruthi Billingsley Unavailable Unavailable Primary Care Provider UnavailSHRUTHI Beatty Primary Care Physician NO FAMILY, PHYSICIAN Primary Care Provider Unava ilMD Dell Brooks Admit Provider [phone] MD Dell Kim Attending Provider NO FAMILY, PHYSICIAN Primary Care Unavailable Oliver Diehl Jr Admitting Unavailable Oliver Diehl Jr Attending Unavailable NO FAMILY, PHYSICIAN Primary Care Unavailable Segun Cho Admitting Unavailable Segun Cho Attending Unavailable Patricio Chakraborty Admitting Unavailable Patricio Chakraborty Attending Unavailable Jackelin aHle Primary Care Unavailable Dell Kim Admitting Unavailable [...] Unavailable JILLIAN .CHARLES Consulting Unavailclaudia chacko [facility], SHRUTHI Primary Care Unavailable ELIUD HERNANDEZ Consulting Unavailable FAWWAD, WRIGHT H Admitting Unavailable AICHHOLZ, MATERIALS ASSISTANT JACKELIN Primary Care Unavailable FAWWAD, WRIGHT H Attending Unavailable AICHOLZ, MATERIALS ASSISTANT JACKELIN Primary Care Unavailable SHRUTHI DÍAZ Attending Unavailable ARJUN, SHRUTHI Admitting Unavailable FAWWAD, WRIGHT H Attending Unavailable FAWWAD, WRIGHT H Admitting Unavailable AICHHOLZ, MATERIALS ASSISTANT JACKELIN Primary Care Unavailable FAWWAD, WRIGHT H [...] [No Known Medication Allergies]Propensity to adverse reactions (disorder)[facility] Repository Medications Current Medications MedicationDrug Class(es)DatesSig (Normalized)Sig (Original)acetaminophen 325 mg / oxyCODONE hydrochloride 5 mg oral tablet (5 sources)Opioid AgonistStart: 08-10-2021 End: 42-92-1438zqzy 1 tablet by mouth every four to six hoursOxycodone- Acetaminophen (Percocet) 5-325 mg tablet Active 1 - 2 TAB PO EVERY 4-6 HOURS 14 August 10, 2021 7:30pmStart: 07-31-2021 End: 14-25-9940quxq 1 tablet by mouth every six hoursOxycodone-Acetaminophen (Percocet) 5-325 mg tablet Active 1 - 2 TAB PO Every 6 hours 15 July 11:[id number] 200 actuat albuterol 0.09 mg/actuat metered dose inhaler (4 sources)beta2-Adrenergic AgonistStart: 54-65-5200udod 2 puff(s) by inhalation four times daily as neededAlbuterol Sulfate HFA 108 (90 Base) MCG/ACT 2 puffs Inhalation qid prn Mar, ActiveStart: 06-58-1421zxxyvndej Refills(s) 0 Start Date: 11/02/19 Status: OrderedAmitriptyline (1 source)Tricyclic AntidepressantStart: 30-98-1280xeuiwhudqnbty Oral, Once a day (at bedtime), Refills(s) 0 Start Date: 12/15/21 Status: OrderedARIPiprazole 10 mg oral tablet (6 sources)Atypical AntipsychoticStart: 39-83-6950fvrx 10 mg by mouth once daily Aripiprazole Active 10 MG PO Daily April 04, 2022 12:00amStart: 02-16-2022 End: 90-29-1869ndilpurazncb 5 mg Tab 30 tab(s), Refills(s) 0 Start Date: 02/16/22 Status: OrderedAzithromycin (2 sources)Macrolide AntimicrobialStart: 81-63-8592xcssxtzbiffm 250 mg Tab Refills(s) 0 Start Date: 12/15/21 Status: OrderedStart: 38-99-8600Otvhabrke 250 MG 2 tablet on the first day, then 1 tablet daily for 4 days Orally Once a day for 5 day(s) Mar, Activebaclofen 10 mg oral tablet (1 source)gamma-Aminobutyric Acid-ergic AgonistStart: 62-57-4154ierr 1 tablet by mouth three times daily as needed for painbaclofen 10 mg Tab 10 mg = 1 tab(s), Oral, TID, PRN Muscle pain, Refills(s) 0 Start Date: 07/13/22 Status: Hhxuhxc41 hr buPROPion hydrochloride 450 mg extended release oral tablet (19 sources)AminoketoneStart: 16-31-4436fuhm 450 mg by mouth once daily in the morningBupropion Hcl Active 450 MG PO Every morning April 04, 2022 12:00amStart: 63-28-8629misu 1 tablet by mouth every twenty-four hoursbuPROPion 300 mg XL /24 hrs mg tab(s), Oral, q24hr, Refills(s) 0 Start Date: 12/15/21 Status: OrderedStart: 24-54-8989afem 1 tablet by mouth every twenty-four hours buPROPion 300 mg XL /24 hrs mg tab(s), Oral, q24hr, Refills(s) 0 Start Date: 12/15/21 Status: OrderedStart: 33-21-5049shou 1 mg by mouth twice dailybuPROPion 150 mg ER Tab mg tab(s), Oral, BID, Refills(s) 0 Start Date: 06/09/21 Status: OrderedStart: 61-53-3062gaof 1 tablet by mouth once dailybuPROPion XL (WELLBUTRIN XL) 150 mg 24 hr tablet Take 150 mg by mouth once daily. 0 06/24/2021 ActiveStart: 10-07-2020 End: 44-99-8031Pblbdawhb Hcl (Wellbutrin Xl) 150 mg Tablet Extended Release 24 Hr Discontinued 300 MG PO Every morning October 06, 2020 11:00pm April 04, 2022 11:25ambuPROPion HCl ER (XL) ActiveComment on above:Take 150 mg by mouth once daily.desmopressin acetate 0.2 mg oral tablet (8 sources)Vasopressin Analog, Factor VIII ActivatorStart: 56-21-1736lklz 1 tablet by mouth at bedtimeDDAVP 0.2 mg oral tablet 0.2 mg = 1 tab(s), Oral, Bedtime, # 90 tab(s), Refills(s) 3, Pharmacy: [facility]/pharmacy #[id number], 190, cm, 06/11/22 8:47:00 EDT, Height/Length Dosing, 175, kg, 06/11/22 8:47:00 EDT,Weight Dosing Start Date: 07/08/22 Status: OrderedStart: 10-86-2812abcc 2 tablets by mouth at bedtimeDDAVP 0.2 mg oral tablet 0.4 mg = 2 tab(s), Oral, Bedtime, # 180 tab(s), Refills(s) 2, Pharmacy: [facility]/pharmacy #[id number], 190, cm, 10/06/21 11:26:00 EDT, Height/Length Dosing, 175, kg, 10/06/21 11:26:00 EDT, Weight Dosing Start Date: 10/06/21 Status: OrderedStart: 81-95-5251dtxi 1 tablet by mouth three times dailyDDAVP 0.2 mg oral tablet 0.2 mg = 1 tab(s), Oral, TID, # 90 tab(s), Refills(s) 2, Pharmacy: [facility]/pharmacy #[id number], 190, cm, 10/06/21 11:26:00 EDT, Height/Length Dosing, 175, kg, 10/06/21 11:26:00 EDT, Weight Dosing Start Date: 10/06/21 Status: OrderedStart: 50-31-2920nria 1 tablet by mouth once dailyDDAVP 0.2 mg oral tablet 0.2 mg = 1 tab(s), Oral, Daily, # 30 tab(s), Refills(s) 11, Pharmacy: [facility]/pharmacy #[id number], 190, cm, 06/09/21 13:52:00 EDT, Height/Length Dosing, 175, kg, 06/09/21 13:52:00 EDT, Weight Dosing Start Date: 06/09/21 Status: OrderedFLUoxetine 40 mg oral capsule (16 sources)Serotonin Reuptake InhibitorStart: 32-58-3697lmoi 80 mg by mouth once dailyFluoxetine Active 80 MG PO Daily April 04, 2022 12:00am Start: 83-11-7670fpbc 1 mg by mouth once dailyFLUoxetine 40 mg Cap mg cap(s), Oral, Daily, Refills(s) 0 Start Date: 06/09/21 Status: OrderedStart: 10-05-2020 take 1 capsule by mouth once dailyFluoxetine (Prozac) 20 mg capsule Active 20 MG PO Daily October 05, 2020 9:32pmStart: 10-05-2020 End: 36-39-8844sqjk 3 capsules by mouth once dailyFluoxetine (Prozac) 20 mg capsule Discontinued 60 MG PO Daily October 04, 2020 11:00pm March 11:25amComment on above:Take 40 mg by mouth once daily.Hyoscyamine (3 sources)Hyoscyamine Sulfate Activeimipramine pamoate 100 mg oral capsule (2 sources)Tricyclic AntidepressantStart: 11-23-2022 End: 88-44-0015rebcblbzoi pamoate 100 mg oral capsule 200 mg = 2 cap(s), Oral, Once a day (at bedtime), pt is to take 200mg daily not bid., X 30 day(s), # 60 cap(s), Refills(s) 6, Pharmacy: [facility]/pharmacy #[id number], 190,cm, 11/23/22 11:45:00 EDT, Height/Length Dosing, 179.5, kg, 11/23/22 11:45:00 EDT, Weight Dosing Start Date: 11/23/22 Stop Date: 06/21/23 Status: Ordered3 ml insulin detemir 100 unt/ml pen injector (20 sources)Insulin AnalogStart: 12-40-8790Iuylgcc Detemir U-100 (Levemir Flextouch U-100 Insuln) 100 unit/mL (3 mL) insulin pen Active 50 UNITS SUBCUT Twice daily morning & bedtime April 01, 2022 10:09pmStart: 67-93-7651Hunxdts SubCutaneous, Refills(s) 0 Start Date: 06/09/21 Status: OrderedStart: 10-09-2020 End: 03-42-5487jmyszzd detemir U-100 (LEVEMIR) 100 unit/mL (3 mL) injection pen Insulin Detemir U-100 (Levemir Flextouch U-100 Insuln) 100 unit/mL (3 mL) Insulin Pen Active 35 UNITS SUBCUT Daily 0 October 09, 2020 12:11pm 0 10/09/2020 ActiveStart: 10-09-2020 End: 33-73-5847Aliicba Detemir U-100 (Levemir Flextouch U-100 Insuln) 100 [...] mg chewing gum (1 source)Cholinergic Nicotinic AgonistStart: 44-47-3882Aexeeehl (Polacrilex) Active 2 MG BUCCAL Q2H 60 April 04, 2022 12:00ampantoprazole 40 mg delayed release oral tablet (18 sources)Proton Pump InhibitorStart: 24-08-4420vtyw 1 mg by mouth once daily Pantoprazole [address] Tab mg tab(s), Oral, Daily, Refills(s) 0 Start Date: 06/09/21 Status: OrderedStart: 10-05-2020 End: 30-20-1618woxi 1 mg by mouth once dailyPantoprazole [address] Tab mg tab(s), Oral, Daily, Refills(s) 0 Start Date: 06/09/21 Status: OrderedPantoprazole Sodium ActiveComment on above:Take 40 mg by mouth once daily.solifenacin succinate 10 mg oral tablet (8 sources)Cholinergic Muscarinic AntagonistStart: 15-70-9104jcmp 1 tablet by mouth once dailyVesicare 10 mg Tab 10 mg = 1 tab(s), Oral, Daily, # 30 tab(s), Refills(s) 11, Pharmacy: [facility]/pharmacy #[id number], 190, cm, 12/15/21 14:21:00 EDT, Height/Length Dosing, 175, kg, 12/15/21 14:21:00 EDT, Weight Dosing Start Date: 12/15/21 Status: Orderedsulfamethoxazole 800 mg / trimethoprim 160 mg oral tablet (1 source)Dihydrofolate Reductase Inhibitor Antibacterial, Sulfonamide AntimicrobialStart: 07-13-2022 End: 75-40-8425Ricngyj D.S. 800 mg-160 mg Tab 160 mg, Oral, BID for 5 day(s), 10 tab(s), Refill(s) 0, [facility]/pharmacy#[id number], 193, cm, 07/11/22 20:16:00 EDT, Height/Length Dosing, 181.4, kg, 07/11/22 20:16:00 EDT, Weight Dosing Start Date: 07/13/22 Stop Date: 07/18/22 Status: OrderedSUMAtriptan 50 mg oral tablet (7 sources)Serotonin-1b and Serotonin-1d Receptor AgonistStart: 10-07-2020 End: 33-95-6130ubgg 1 tablet by mouth onceSumatriptan Succinate (Imitrex) 50 mg Tablet Active 50 MG PO Once [place] 2nd, 2021 5:33pmSUMAtriptan Succinate Active Testosterone (1 source)AndrogenStart: 07-09-6828Poeozpfdsenj Active 100 MG IM EVERY 2 WEEKS April 01, 2022 12:00am Takes every 2 weeks.First dose on 2022 Completed/Discontinued Medications MedicationDrug Class(es)DatesSig (Normalized)Sig (Original)atorvastatin 20 mg oral tablet (11 sources)HMG-CoA Reductase InhibitorStart: 11-02-2019 End: 50-75-7021tvde 1 tablet by mouth once dailyAtorvastatin (Lipitor) 20 mg tablet Discontinued 20 MG PO Daily October 04, 2020 11:00pm April 01, 2022 9:17pmComment on above:Take 20 mg by mouth once daily.DULoxetine 30 mg delayed release oral capsule (7 sources)Serotonin and Norepinephrine Reuptake InhibitorStart: 10-05-2020 End: 25-52-8874Mwuxwbtecr (Cymbalta) 30 mg capsule,delayed release(DR/EC) Discontinued MG PO October 05, 2020 9:32pm October 05, 2020 11:10pmDULoxetine HCl Activeempagliflozin 10 mg oral tablet (7 sources)Sodium-Glucose Cotransporter 2 InhibitorStart: 10-05-2020 End: 72-87-2385wyfu 1 tablet by mouth once dailyEmpagliflozin (Jardiance) 10 mg tablet Discontinued 10 MG PO Daily October 05, 2020 11:09pm October 09, 2020 12:21pmJardiance ActiveInsulin Glargine (Lantus U-100 Insulin) 100 unit/mL Cartridge (4 sources)Start: 10-06-2020 End: 80-35-2287bcaefd 30 [IU] by subcutaneous injection once daily at bedtime Insulin Glargine (Lantus U-100 Insulin) 100 unit/mL Cartridge Discontinued 30 UNIT SUBCUT Daily at bedtime October 06, 2020 10:14pm October 09, 2020 12:21pm Start: 10-06-2020 End: 27-05-7076pqzvhx 30 [IU] by subcutaneous injection once daily at bedtime Insulin Glargine (Lantus U-100 Insulin) 100 unit/mL Cartridge Discontinued 30 UNIT SUBCUT Daily at bedtime October 05, 2020 11:00pm October 09, 2020 11:21am ketoconazole 20 mg/ml topical cream (8 sources)Azole AntifungalStart: 31-69-6977uowhychxjfjx (NIZORAL) 2 % cream APPLY TO AFFECTED AREA 3 TIMES A DAY FOR 7 DAYS 0 07/26/2021 ActiveStart: 10-05-2020 End: 22-50-9678Nsdovgaznvvi Active 1 APPLIC TOPICAL Daily October 05, 2020 11:09pmComment on above:APPLY TO AFFECTED AREA 3 TIMES A DAY FOR 7 DAYS lisinopril 20 mg oral tablet (20 sources)Angiotensin Converting Enzyme InhibitorStart: 84-17-0428uoks 10 mg by mouth once dailyLisinopril Active 10 MG PO Daily October 04, 2020 11:00pm Start: 11-02-2019 End: 94-84-8349hrdt 1 mg by mouth once dailylisinopril 20 mg Tab mg tab(s), Oral, Daily, Refills(s) 0 Start Date: 11/02/19 Status: OrderedLisinopril Active Comment on above:Take 20 mg by mouth once daily.24 hr metFORMIN hydrochloride 500 mg extended release oral tablet (20 sources)BiguanideStart: 64-64-2749iedb 2 tablets by mouth twice daily metFORMIN ER (GLUCOPHAGE XR) 500 mg 24 hr tablet Take 2 tablets by mouth twice daily. 60 tablet 0 08/29/2021 ActiveStart: 70-22-3402ifpu 1 mg by mouth twice dailymetformin 1000 mg oral tablet mg tab(s), Oral, BID, Refills(s) 0 Start Date: 11/02/19 Status: OrderedmetFORMIN HCl ER ActiveComment on above:Take 2 tablets by mouth twice daily.tiZANidine 4 mg oral tablet (11 sources)Central alpha-2 Adrenergic AgonistStart: 10-05-2020 End: 11-77-6596nmcy 1 tablet by mouth once daily as needed for paintiZANidine (ZANAFLEX) 4 mg tablet Take 4 mg by mouth once daily as needed for pain. 0 05/31/2021 ActivetiZANidine HCl ActiveComment on above:Take 4 mg by mouth once daily as needed for pain.warfarin sodium 7.5 mg oral tablet (7 sources)Vitamin K AntagonistStart: 48-89-1700hcrf 1 tablet by mouth once dailywarfarin (COUMADIN) 7.5 mg tablet TAKE 1 TO 1 & 1/2 TABLETS BY MOUTH DAILY DIRECTED 0 09/02/2021 ActiveStart: 86-79-7893wzen 1 tablet by mouth once dailywarfarin (COUMADIN) [...] or structure following a genitourinary system procedure]Onset: 402381-04-2809GarpdpmkOsmrhxys mellitus with complications (5 sources)Diabetic ketoacidosis; Translations: [Type 2 diabetes mellitus with ketoacidosis without coma]Onset: 811223-48-5926QsrrfsoAgsrhgrq mellitus without complication (20 sources)Diabetes mellitus; Translations: [Type 2 diabetes mellitus without complications]Onset: 501898-71-5031EzxvfuyUctcybkw mellitus without complication (9 sources)Glycosuria; Translations: [Glycosuria]Onset: 95-98-6774Gqgjiyuw Disorders of lipid metabolism (20 sources)Hypertriglyceridemia; Translations: [Pure hyperglyceridemia] 20-52-9105WmwscltF Codes: Fall (3 sources)Wogv56-92-8106Igdutzzkzc disorders (10 sources)Gastroesophageal reflux disease; Translations: [Gastroesophageal reflux disease without esophagitis]Onset: 069223-26-3456QlfdilnIjgosjzwf hypertension (10 sources)Hypertensive disorder; Translations: [Essential (primary) hypertension]Onset: 534659-74-3553TmtauyjIxzex of unknown origin (4 sources)Fever; Translations: [Fever, unspecified]Onset: EpisodicFluid and electrolyte disorders (4 sources)Electrolyte imbalance; Translations: [Other disorders of electrolyte and fluid balance, not elsewhere classified]Onset: 177581-82-1096Cxeoevod Gastrointestinal hemorrhage (9 sources)Rectal wvmhycpcof48-93-6847NflhrdfkMfnuwrglrzvto symptoms and ill- defined conditions (20 sources)Intermittent urinary incontinence; Translations: [Nocturnal enuresis]Onset: 658603-68-5266DqlvafbYexeyodwhswvw symptoms and ill- defined conditions (18 sources)Incomplete emptying of bladder; Translations: [Urgent desire to urinate]Onset: 843978-43-9064PsypvwcxSsemvarr; including migraine (3 sources)Headache; including migraine; Translations: [HEADACHE UNSPECIFIED] Onset: 32-61-6373Truzmfpdsfns conditions of male genital organs (4 sources)Golden's gangrene; 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]Onset: 574177-26-8297GxvaqrpmKhil disorders (20 sources)Depressive disorder; Translations: [Depression]Onset: 08-14-2021 38-91-7958BrnrenvUgqa disorders (2 sources)Mood disorders; Translations: [DEPRESSION UNSPECIFIED]Onset: 49-32-8119Cbpssek (2 sources)Tinea itzeiy81-57-9134HbajkautYblmpcbwauj deficiencies (4 sources)Deficiency of macronutrients; Translations: [Mild protein-calorie malnutrition]Onset: 207867-50-0730EtmleehQihkn aftercare (1 source)Long-term current use of drug therapy; Translations: [Other snf (current) drug therapy]Onset: 56-47-0753EgenxxgjVlfyu aftercare (1 source)Other snf (current) drug therapy; Translations: [OTH [facility] CURRENT DRUG THERAPY]Onset: 91-73-9675OrygjdfwNkfqp aftercare (1 source)detention (current) use of insulin; Translations: [LEARNING AND DEVELOPMENT INTERN CURRENT USE OF INSULIN]Onset: 03-50-5762CzbedmahCtrgs aftercare (1 source)detention (current) use of oral hypoglycemic drugs; Translations: [[facility] USE ORAL HYPOGLYCEMIC DX]Onset: 10-78-6181WoigtowuJmhsx and unspecified benign neoplasm (2 sources)Benign neoplasm of pituitary gland; Translations: [Benign neoplasm of pituitary gland]Onset: 67-93-1658IcxyrxryBlwwp and unspecified benign neoplasm (2 sources)Pituitary unkzkvv68-23-2740AixluktlQgzio circulatory disease (1 source)Low blood pressure; Translations: [Hypotension, unspecified]Onset: 25-09-7807KaromsrqIpsyf connective tissue disease (1 source)Other muscle spasm; Translations: [OTHER MUSCLE SPASM]Onset: 51-03-8660BsnzmdgtChhqm diseases of bladder and urethra (3 sources)Overactive tultril73-26-3520VjvehtaFkgof diseases of veins and lymphatics (9 sources)Vtduobdrfw88-97-7818UurignqvSirdm ear and sense organ disorders (1 source)Cellulitis of right external ear; Translations: [CELLULITIS OF RIGHT EXTERNAL EAR]Onset: 83-52-4363LngxqxqxEvrxv endocrine disorders (9 sources)Xujgkopaapdweqe68-06-6453OwsuiyzRbsfx endocrine disorders (9 sources)Male eboxthoujhmn95-78-1448NlxaimsHkopu endocrine disorders (2 sources)Testicular hypofunction; Translations: [Testicular hypofunction] Onset: 45-05-6154GybxoqlVagbg gastrointestinal disorders (9 sources)Rhnahuwwptxk90-56-2092QdeymdapPkomg liver diseases (9 sources)Large yijxy35-90-9788EnoqcftxFbtbl lower respiratory disease (1 source)Hypoxemia; Translations: [Hypoxemia]Onset: 62-84-3297FesgdplyLaxlj male genital disorders (9 sources)Bdrxulwqn02-93-6598ReenlxtSuyff male genital disorders (1 source)Disorder of male genital organ; Translations: [Other specified disorders of the male genital organs]Onset: 66-88-6425RuixnbidZrmkp male genital disorders (9 sources)Swelling of okwnnna42-76-5393YislxpvmQhrne nutritional; endocrine; and metabolic disorders (8 sources)Morbid obesity; Translations: [Morbid (severe) obesity due to excess calories]Onset: 571920-39-8664KktfcvgFdzkn nutritional; endocrine; and metabolic disorders (1 source)Morbid (severe) obesity due to excess calories; Translations: [MORBID SEVERE OBES D/T EXCESS MATTHEW]Onset: 96-96-8791SpwbtqgPtdzh nutritional; endocrine; and metabolic disorders (1 source)Body mass index (BMI) 50.0-59.9, adult; Translations: [BODY MASS INDEX BMI 50.0-59.9 ADULT]Onset: 32-67-4896AcngwgjBrvflamhav disorders (not diabetes) (8 sources)Acute pancreatitis; Translations: [Acute pancreatitis without necrosis or infection, unspecified]Onset: 286275-92-2939QceuvwbvJthncclg codes; unclassified (9 sources)Central sleep apnea newyhomg93-31-4936HneicwyXynobyzk codes; unclassified (1 source)Sleep apnea; Translations: [Primary central sleep apnea]Onset: 84-77-9399BfsewoxDrqwwzfj codes; unclassified (4 sources)Acute pain; Translations: [Pain, unspecified]Onset: 08-18-2021 72-72-0887MvnvklfaTwsmghkt codes; unclassified (1 source)Procedure and treatment not carried out for other reasons; Translations: [PROC AND TX NOT CARRIED OUT OTH REASONS]Onset: 61-67-8215Qidlpghm Screening and history of mental health and substance abuse codes (5 sources)H/O: drug dependency; Translations: [Personal history of nicotine dependence]Onset: 035985-74-4007DfazmzbxJodu and subcutaneous tissue infections (6 sources)Cellulitis of head [any part, except face]; Translations: [Cellulitis of face]Onset: 08-79-8227GqtgastqPtpfedduuqk; intervertebral disc disorders; other back problems (10 sources)Degeneration of lumbar intervertebral disc; Translations: [Other intervertebral disc displacement, lumbar region]Onset: ChronicSpondylosis; intervertebral disc disorders; other back problems (6 sources)Radiculopathy, lumbar region; Translations: [Intervertebral disc disorders with radiculopathy, lumbar region]Onset: 50-36-1408JwiurszpJjvliusnw- related disorders (4 sources)Smoker; Translations: [Nicotine dependence, other tobacco product, uncomplicated]Onset: 570688-90-0006YgpauquQdqbymy on above:Added secondary to documentation in Social History.Syncope (1 source)Syncope and collapse; Translations: [Syncope and collapse]Onset: 03-31-8588EsdjejapOaqpfrfxzcff (1 source)N50.82 - Scrotal pain; Translations: [N50.82 - Scrotal pain]Onset: 70-05-9604Ozflmkondeac (1 source)N50.89 - Other specified disorders of the male genital organs; Translations: [N50.89 - Other specified disorders of the male genital organs] Onset: 27-60-7033Vskzqrfmndwn (1 source)Z30.2 - Encounter for sterilization; Translations: [Z30.2 - Encounter for sterilization]Onset: 05-65-3408Dkokipzvkmhr (2 sources)LOW BACK PAIN, UNSPECIFIED; Translations: [LOW BACK PAIN, UNSPECIFIED]Onset: 17-52-8397Xxykgbdolxkz (1 source)CONTACT W/AND (SUSP) EXPOS COVID-19; Translations: [CONTACT W/AND (SUSP) EXPOS COVID-19]Onset: 32-43-8949Pljjdrf tract infections (1 source)Urinary tract infectious disease; Translations: [Urinary tract infection, site not specified]Onset: 16-14-1745KihrhbywUnggr infection (4 sources)Disease caused by 2019-nCoV; Translations: [COVID-19]Onset: 958774-95-0877Baxziqop Past or Other Problems Problem ClassificationProblemDateDocumented DateEpisodic/ChronicContraceptive and procreative management (4 sources)Contraception status; Translations: [Vasectomy status]Onset: 793054-90-0644KkqdmvsqGagxwdrawpfqw and screening for infectious disease (6 sources)Contact with and (suspected) exposure to other viral communicable diseases; Translations: [Contact with or exposure to other viral diseases]Onset: 01-21-2021 Resolved: 22-49-6051UzpztjjtTmwpdxx and fatigue (4 sources)Other fatigue; Translations: [OTHER FATIGUE]Onset: 46-73-5576Xgvjufkq Other aftercare (4 sources)Encounter for therapeutic drug level monitoring; Translations: [ENC THERAPEUTC DRUG LEVL MONITORING]Onset: 33-96-4323MifsreszPzwgy aftercare (1 source)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; Translations: [[facility] CURRNT USE ANTICOAGULANTS]Onset: 45-09-2372ZkcoqzihWydzw liver diseases (3 sources)Liver mass; Translations: [Hepatomegaly, not elsewhere classified] EpisodicOther nutritional; endocrine; and metabolic disorders (1 source)Overweight; Translations: [OVERWEIGHT]Onset: 07-01-2659IxwnmqtmIcbay screening for suspected conditions (not mental disorders or infectious disease) (6 sources)Patient encounter status; Translations: [Encounter for screening for other disorder]Onset: 67-62-7794AxqmngecXuhmboh on above:MRSA nasal screen positive 07/11/2022Other upper respiratory infections (1 source)Acute upper respiratory infection, unspecifiedOnset: 03-24-2021 Resolved: 45-42-4698QxhpfaysXaitshegf; thrombophlebitis and thromboembolism (1 source)Acute embolism and thrombosis of superficial veins of right upper extremity; Translations: [ACUTE EMBO THROMB SUP VNS RT UP EXT]Onset: 09-04-2021 EpisodicPulmonary heart disease (6 sources)Pulmonary embolism; Translations: [Other pulmonary embolism without acute cor pulmonale]Onset: 002860-39-9557LytuguwsIoedoxh and intentional self-inflicted injury (4 sources)Suicidal ideations; Translations: [SUICIDAL IDEATIONS]Onset: 39-37-0910QqxcsoqcOvtizefycbpb (1 source)LOW BACK PAIN, UNSPECIFIED; Translations: [LOW BACK PAIN, UNSPECIFIED] Onset: 06-25-2022 Results Test NameValueInterpretationReference RangeFacilityPre-Certification Formon 51-55-8638Xqh-Certification Form [id number]#1.00CD:[address] [place], [place] [address]Lab Reportson 69-21-9159Lyu Reports [id number]#1.00CD:[address] [place], [place] [address]Ambulatory Visit Summaryon 79-83-0845Wfgrkuuekj Visit SummaryNoSumma Health [facility] CampusPatient Educationon 48-40-6119Mskqjfa EducationNoSumma Health Akron CampusUrology Office/Clinic Noteon 73-77-1204Jqzewrs Office/Clinic NoteProtestant HospitalComment on above:Result Comment: Electronically Signed By: Patricio CHAKRABORTY MD\.br\Date and Time Signed: 11/23/22 13:02 EDT\.br\Electronically Co-Signed By: Tara Lee\.br\Date and Time Co-Signed: 11/23/22 13:00 EDTAmbulatory Visit Summaryon 08-17-2022 Ambulatory Visit SummaryNoSumma Health Akron CampusPatient Educationon 63-16-6301Hcubsnm EducationNoSumma Health Akron CampusPhysician Referralon 06-84-1359Menczjzfv [id number]#1.00CD:127 [facility] HospitalUrology Office/Clinic Noteon 34-04-7601Jofruyb Office/Clinic NoteProtestant HospitalComment on above:Result Comment: Electronically Signed By: Patricio CHAKRABORTY MD\.br\Date and Time Signed: 08/17/22 11:40 EDT\.br\Electronically Co-Signed By: Germaine Mccain\.br\Date and Time Co-Signed: 08/17/22 11:37 EDTC Urineon 77-81-5067Nvfwdbsu identified Cx Nom (U)Protestant HospitalComment on above:Performed By: #### [id number], 56136520 ####[facility] [address] [place], [place] [address]ZYWbr 10-12-2518Tgnjq gap [Moles/Vol]12 mmol/L [place]6-16[facility] Medical CenterComment on above:Performed By: #### [id number], 6708032 ####[facility] [address]jvrlmxnbz[address] [place], [place] [address]Hgxhyit [Mass/Vol]8.9 mg/dLNormal8.9-11.1FBellevue HospitalComment on above:Performed By: #### 94137787, 0206982 ####[facility] Maljpvvbpt[address] [place], [place] [address]Kvdciaap [Moles/Vol]102 mmol/ROtrszv051-252FqcyiiUniversity Hospitals Ahuja Medical CenterComment on above: Performed By: #### 23299778, 5799604 ####[facility] Ynmzkxgdbc[address] [place], [place] [address]JU8 [Moles/Vol]24 mmol/SWrurrv01-98 [facility] CenterComment on above:Performed By: #### 66359875, 4070198 ####[facility] Naipmtcmkt[address] [place] [address] Creatinine [Mass/Vol]0.6 mg/dLNormal0.5-1.3FBellevue HospitalComment on above:Performed By: #### 76912686, 9534035 ####[facility] Ygnstpuujx[address] [place], [place] [address]Nchnreg [Mass/Vol]259 mg/sTFqpb31-894 [facility] CenterComment on above:Result Comment: If this glucose result represents a fasting glucose, interpretation should refer tothe following reference range: 55-99 mg/dLPerformed By: #### [id number], 0773680 ####[address] [address]Mcmwjujlc [Moles/Vol]3.9 mmol/LNormal3.5-5.3FBellevue HospitalComment on above: Performed By: #### 78167215, 1922646 ####[facility] [address]wknatq[address] [place], [place] [address]Huxrre [Moles/Vol]134 mmol/LLow 135-145[facility] Medical CenterComment on above:Performed By: #### 69482876, 6724763 ####[facility] Axnjcauirq[address] [place], [place] [address]Bdrz nitrogen [Mass/Vol]14 mg/dLNormal5-21[facility] Comment on above:Performed By: #### 60956198, 6951196 ####[facility] Vcwjpkfgkz[address] [place], [place] [address]Jnpc nitrogen/Creatinine [Mass ratio]23 No KlkthZijf84-08Yorleg [facility] CenterComment on above:Performed By: #### 45986724, 9989246 ####Angela [facility] Ewouzwcztt[address] [place]so [place], [place] [address]VIIRLLOLSJzyqgil By: Lab Khushboo on 07-13-2022 Glucose [Mass/Vol]292 mg/lLQfoy01 - 99 mg/dLEASTERN [facility] POC SubsectionComment on above: Result Comment: Notified RN/MDPOC Device [id number] Interpretation CodeEASTERN [facility] POC SubsectionPOC User [id number] Interpretation CodeEASTERN [facility] POC SubsectionPOC UsernamePALAGYI, CATHRYNInvalid Interpretation CodeEASTERN [facility] POC SubsectionGlucose [Mass/Vol]238 mg/tWKksq19 - 99 mg/dLEASTERN [facility] POC SubsectionComment on above:Result Comment: Notified RN/MDPOC Device [id number] Interpretation CodeFT POC SubsectionPOC User [id number] Interpretation CodeEASTERN [facility] POC SubsectionPOC UsernamePALAGYI, CATHRYNInvalid Interpretation Code [facility] POC SubsectionCHEMISTRYOrdered By: SYSTEM SYSTEM on 78-37-6402Ndpzl gap [Moles/Vol]12 mmol/LNormal6 - 16 mEq/LFTMC RemisolCalcium [Mass/Vol]8.9 mg/dL Normal8.9 - 11.1 mg/dLFT RemisolChloride [Moles/Vol]102 mmol/XScercf955 - 111 mmol/LFTMC RemisolCO2 [Moles/Vol]24 mmol/CGxeerd67 - 31 mmol/LFTMC Remisol Creatinine [Mass/Vol]0.6 mg/dLNormal0.5 - 1.3 mg/dLEASTERN [facility] RemisolGFR/1.73 sq M.predicted among non-blacks MDRD (S/P/Bld) [Vol rate/Area]131 mL/min/1.73 m2 Normal>=59mL/min/1.73 m2E[facility] Chem SGlucose [Mass/Vol]259 mg/lLBwpl95 - 199 mg/dL [facility] RemisolPotassium [Moles/Vol]3.9 mmol/LNormal3.5 - 5.3 mmol/LFTMC Remisol Sodium [Moles/Vol]134 mmol/WBeh862 - 145 mmol/LFTMC RemisolUrea nitrogen [Mass/Vol]14 mg/dLNormal5 - 21 mg/dLEASTERN [facility] RemisolUrea nitrogen/Creatinine [Mass ratio]23 mg/upZiqt98 - 20[facility] RemisolCapillary Glucose POCon 41-74-9332Zflsvsr [Mass/Vol]292 mg/qWXrwu70-06QazxxdUniversity Hospitals Ahuja Medical CenterComment on above:Result Comment: Notified RN/MDPerformed By: #### [id number] ####[facility] [address]walwomh[address] [place], [place] [address]Rykchye [Mass/Vol]238 mg/dL Ofhp22-28Nycdfx25 Gonzalez StreetComment on above:Result Comment: Notified RN/MDPerformed By: #### [id number] ####[facility] [address]mns[address] [place], [place] [address]Owttttgca Instructionson 64-55-8458Ogrxydndt [id number]#1.00CD:127NoSumma Health Akron CampusDischarge Note-Nursingon 62-46-4038Pmbvrjnav Note-NursingNormal [facility] Medical CenterFerritinon 29-79-4382Rgcgonrq [Mass/Vol]126 ng/mL Lfkwjf74-982Zcldqc[address] [place], [place] [address]Comment on above:Result Comment: NORMALS MEN <30 YRS 16-132 ng/mL MEN >30 YRS 8-338 ng/mL WOMEN (PREMEN) 6-104ng/mL WOMEN (POSTMEN) 12-210 ng/mLPerformed By: #### [id number], 2753394, 3248182, 1642983, [id number] ####[facility] [address]jp[address] [place], [place] [address]Qzbjqajcz Clinical Summaryon 05-18-7974Kzyjcrbuq Clinical SummaryNormal [facility] CenterInpatient Patient Summaryon 48-25-1761Eqlhdtcqb Patient SummaryNormOhioHealth Van Wert HospitalInpatient Patient SummaryNormal [facility] CenterInterdisciplinary Note - Case Manageron 07-13-2022 Interdisciplinary Note - Case ManagerNoSumma Health Akron CampusComment on above:Result Comment: Electronically Signed By: Quang CEDILLO, Evie\.br\Date and Time Signed: 07/13/22 11:37 EDTPatient Education - Texton 86-39-1095Xdivmqi Education - TextNoSumma Health Akron CampuseGFRon 37-11-6847HYT/1.73 sq M.predicted among non-blacks MDRD (S/P/Bld) [Vol rate/Area]131 mL/min/1.73 m2 Normal>=59[facility] Medical CenterComment on above:Order Comment: Order added by Discern Expert.Result Comment: Chronic kidney disease could be indicated at eGFR's of less than 60 mL/min/1.73m2. Kidney failure is indicated at less than 15 mL/min/1.73m2.Performed By: #### 84237622, 3368769 ####[facility] [address]pb[address] [place], [place] [address]KRGfb 75-91-7322Mkuztyguuwq peptide B (Bld) [Mass/Vol]pg/mLNormal5-80[facility] CenterComment on above:Performed By: #### [id number] ####[facility] [address]xtw[address] [place], [place] [address]MYLZNRHYGEyptvsa By: Diego Cuello on 07-12-2022 Glucose [Mass/Vol]284 mg/hGHnjv45 - 99 mg/dLEASTERN [facility] POC SubsectionComment on above: Result Comment: Cleaned MeterPOC Device [id number] Interpretation CodeFT POC SubsectionPOC User [id number] Interpretation CodeFT POC SubsectionPOC UsernameMOTON, NADIAInvalid Interpretation CodeFT POC Subsection CHEMISTRYOrdered By: Cass Ryan on 59-29-6038Snfjlkqtwba peptide B (Bld) [Mass/Vol]pg/mLNormal5 - 80 pg/mLFTMC HemeManSSCHEMISTRYOrdered By: SYSTEM SYSTEM on 27-40-3458QPX [Mass/Vol]6.3 mg/dLHigh<=1.9mg/dLFTMC RemisolFerritin [Mass/Vol]126 ng/qGBolmym04 - 336 ng/mLE[facility] RemisolLDH [Catalytic activity/Vol] 160 [iU]/oWylsua14 - 218 Int._Unit/LFTMC RemisolProcalcitonin0.10 ng/mLNormal 0.00 - 0.50 ng/mLE[facility] RemisolTroponin I.cardiac [Mass/Vol]pg/mLLow15.90 - 38.40 pg/mLEAST[facility] RemisolCOVID-19 ([facility])on 03-19-3167Xvvgkvguor InstrumentFT Waqas 2 NormalUniversity Hospitals Ahuja Medical CenterComment on above:Performed By: #### [id number] ####[place] [address] [id number] SARS-CoV-2 (COVID-19) RNA ECTOR+probe Ql (Resp)Not detectedNormalNot Detected [facility] Medical CenterComment on above:Result Comment: This test result should be correlated with clinical presentations and medical history by a healthcare provider to determine its clinical significance.This assay was performed by a reverse transcriptase real-time polymerase chain reaction (rt PCR) method on the [employer] system. This test has been authorized only [...] is terminated or revoked sooner.Performed By: #### [id number] ####[place] [address] [id number]-EpG-3 (COVID-19) RNA ECTOR+probe Ql (Unsp spec)PassNormalPassUniversity Hospitals Ahuja Medical CenterComment on above:Performed By: #### [id number] ####[place] [address]Specimen source Nom (Unsp spec)NasalNormOhioHealth Van Wert HospitalComment on above:Performed By: #### [id number] ####[address]ADMITTED TO INTENSIVE CARE UNIT FOR CONDITION OF INTEREST:FIND:PT:NON[facility] Comment on above:Performed By: #### [id number] ####[place] [id number] IN A HEALTHCARE SETTING:FIND:PT:NONSelect [facility] SouthComment on above:Performed By: #### [id number] ####[place] [id number] TEST FOR CONDITION OF INTEREST:FIND:PT:UnknownNormal [facility] CenterComment on above:Performed By: #### [id number] ####[address]HAS SYMPTOMS RELATED TO CONDITION OF INTEREST:FIND:PT:UnknownrmOhioHealth Van Wert HospitalComment on above:Performed By: #### [id number] ####[place] [id number] FOR CONDITION OF INTEREST:FIND:PT:YESNormOhioHealth Van Wert HospitalComment on above:Performed By: #### [id number] ####[address]PREGNANCY STATUS:FIND:PT:NONormal [facility] CenterComment on above:Performed By: #### [id number] ####[address] RESIDES IN A [facility] CARE SETTING:FIND:PT:NON[facility] Comment on above:Performed By: #### [id number] ####[address]CRPon 27-97-7445HHX [Mass/Vol]6.3 mg/dLHigh<=1.9[facility] Medical CenterComment on above:Performed By: #### 08073408, 2577522, 7950399, 8514431, [id number] ####[address] [address]LT Head or Brain w/o Contraston 04-67-7659IS Head or Brain w/o ContrastNormalUniversity Hospitals Ahuja Medical CenterCT Spine Cervical w/o Contraston 99-45-3140BM Spine Cervical w/o ContrastNormalUniversity Hospitals Ahuja Medical CenterCTA Cheston 83-86-1866FAO ChestNormOhioHealth Van Wert HospitalCapillary Glucose POCon 52-00-4181Wjhlbse [Mass/Vol]284 mg/pXMjkv46-61 [facility] CenterComment on above:Result Comment: Cleaned Meter Performed By: #### [id number] ####[address] [address]Bfloraz [Mass/Vol]378 mg/rOOsel73-55BucmhfUniversity Hospitals Ahuja Medical CenterComment on above:Performed By: #### [id number] ####[address] [address]Ymfmili [Mass/Vol]296 mg/yOYrap28-93QsrlusUniversity Hospitals Ahuja Medical CenterComment on above:Performed By: #### [id number] ####[address] [address]Qhjzktm [Mass/Vol]324 mg/jBZwkj09-37HkefrhUniversity Hospitals Ahuja Medical CenterComment on above:Result Comment: Notified RN/MDPerformed By: #### [id number] ####[address] [address]Xuzhkwx [Mass/Vol]409 mg/oFRupx25-48PlcwwfUniversity Hospitals Ahuja Medical CenterComment on above:Result Comment: Notified RN/MDPerformed By: #### [id number] ####[address], [place] [address]Fycxmqv for Treatmenton 97-10-4134Lzjzahy for Treatment [id number]#1.00CD:127NoMer[facility] Memorial Hospital CenterED Clinical Summaryon 56-33-9687TT Clinical SummaryNoPrem[facility] Note-Physicianon 23-23-9792ZI Note-PhysicianProtestant HospitalComment on above:Result Comment: Electronically Signed By: Marietta Guerrero DO\Date and Time Signed: 07/12/22 01:02 EDTED Patient Education Noteon 81-85-9176YN Patient Education NoteNoPremier Health [facility] Patient Summaryon 45-45-2851PH Patient SummaryNoSum[facility] Campus EMS Documentationon 38-06-7307FZM DocumentationNoSum[facility] Campus EMS DocumentationNoSumma Health Akron CampusInfluenza A&B Agon 07-12-2022 Influenzae A AgNegativeNormalNegativeUniversity Hospitals Ahuja Medical CenterComment on above:Performed By: #### [id number], [id number] ####[facility] [address] [place], [place] [address]Htxtrfwvti B AgNegativeNormalNegative [facility] CenterComment on above:Result Comment: Test sensitivity and specificity vary for age group, specimen type, antigen types, and prevalence of disease. Test results must be evaluated in conjunction with other clinical data available to the physician. Individuals who received nasally administered Influenza A vaccine may havepositive test results up to 3 days after vaccination.Performed By: #### 65978151, [id number] ####[facility] [address] [place], [place] [address]Inyujsndc Correspondence Officeon 90-44-6335Uxvjwrbhv Correspondence Office [id number]#1.00CD:[address] [place], [place] [address]Interdisciplinary Note - Case Manageron 93-78-9380Qanpurvzicksgglsh Note - Case ManagerNoSumma Health Akron CampusComment on above:Result Comment: Electronically Signed By: Cass Loera.hilda\Date and Time Signed: 07/12/22 12:26 EDTLDHon 68-89-4918KYM [Catalytic activity/Vol]160 Int._Unit/GLauumh72-757 [facility] CenterComment on above:Performed By: #### 27085571, 0512336, 5821763, 9719738, 4244393574 ####[facility] L [address]xf[address] [place], [place] [address]Dldjzhk Recordon 12-40-8771Cerrohp [id number]#1.00CD:[address] [place], [place] [address]Monitor [id number]#1.00CD:127 [facility] HospitalMonitor Record [id number]#1.00CD:[address] [place], [place] [address]Procalcitoninon 12-09-5706Jpnaliolxjyzv.10 ng/mLNormal.00-.50[facility] Medical CenterComment on above:Result Comment: <0.5 ng/mL Low risk [...] within 6 to 24 hours.Performed By: #### 07387579, 0503094, 9376046, 2538948, [id number] ####[facility] [address] [place], [place] [address]UAO - Preliminary Cat Scan Reporton 39-96-4401OUK - Preliminary Cat Scan [id number]#1.00CD:127 NormalUniversity Hospitals Ahuja Medical CenterRapid COVID Antigen ([facility])on 59-22-6872Gdtya COV Int NEG CtlPassNormalUniversity Hospitals Ahuja Medical CenterComment on above:Performed By: #### 37643334, [id number] ####Julio César [facility] [address]sebj[address] [place], [place] [address]Mqitf COV Int POS CtlPassNormalUniversity Hospitals Ahuja Medical CenterComment on above:Performed By: #### 44249933, [id number] ####Julio César [facility] Hrofulpdvf[address] [place], [place] [address]XHRI-XmG+SARS-CoV-2 (COVID-19) Ag IA.rapid Ql (Resp)Not detectedNormalNot DetectedUniversity Hospitals Ahuja Medical CenterComment on above:Result Comment: The [employer]? System for Rapid Detection of SARS-CoV-2 is [...] terminated or revoked sooner. Performed By: #### [id number], [id number] ####[facility] [address]quf[address] [place], [place] [address]Vwsnijdh 3 Hr.on 63-72-2398Tvdbhkwv I.cardiac [Mass/Vol]2.30 pg/mLLow15.90-38.40[facility] Medical CenterComment on above:Result Comment: The 95% CI (Confidence Interval) PPV (Positive Predictive Value) for myocardial infarction in females is 38 pg/mL, in males 51 pg/mL. The results should be used in conjunction with clinical conditions of myocardial infarction.(Access High Sensitivity Troponin I Instructions For Use, [employer], October 2017)Performed By: #### [id number] ####[facility] [address] [place], [place] [address]Oqhlpsra 6 Hr.on 20-15-5913Eyzrewgo I.cardiac [Mass/Vol]ng/mLLow15.90-38.40[facility] Medical CenterComment on above:Result Comment: The 95% CI (Confidence Interval) PPV (Positive Predictive Value) for myocardial infarction in females is 38 pg/mL, in males 51 pg/mL. The results should be used in conjunction with clinical conditions of myocardial infarction.([employer] High Sensitivity Troponin I Instructions For Use,[employer], October 2017)Performed By: #### 62035209, 9750616, 9730539, 7130859, [id number] ####[facility] L pvqbxrpti[address] [place], [place] [address]HD With Cult Reflexon 07-12-2022 Bacteria LM Ql (Urine sed)1+ /HPFAbnormalTraceUniversity Hospitals Ahuja Medical CenterComment on above:Performed By: #### 0421161, 42406593 ####[address] [address]Gizyxmjwf Ql (U)NegativeNormal NegativeUniversity Hospitals Ahuja Medical CenterComment on above:Performed By: #### 4837876, 01887137 ####[address] [address]Frlmyhy (U)CLEARNormalClearUniversity Hospitals Ahuja Medical CenterComment on above: Performed By: #### 2047437, 30112146 ####[address] [address]Nkaaz (U)YELLOWNormalYellowUniversity Hospitals Ahuja Medical CenterComment on above:Performed By: #### 0410233, 75539686 ####[address] [address] Epithelial cells.squamous LM.HPF (Urine sed) [#/Area]1-6Yjyrwl3-9Kokigf [facility] CenterComment on above:Performed By: #### 0953803, 83371905 ####[address] [address]Llwaxjz Test strip (U) [Mass/Vol]2+AbnormalNegativeUniversity Hospitals Ahuja Medical CenterComment on above:Performed By: #### 3127776, 31881938 ####[address] [address]Vklkhouprn Ql (U)TRACEAbnormal NegativeUniversity Hospitals Ahuja Medical CenterComment on above:Performed By: #### 6168792, 11294936 ####[address] [address]Funnxgd (U) [Mass/Vol]NegativeNormalNegativeUniversity Hospitals Ahuja [facility] Center Comment on above:Performed By: #### 0932726, 59551708 ####[address] [address]Rhbdogu.plasma/[place].RBC (Bld) [Mass ratio]3-15Fpxfsg1-7Ubnlcc [facility] CenterComment on above: Performed By: #### 3931981, 26073937 ####[address] [address]Gugmd Ql (Urine sed)1+NormalUniversity Hospitals Ahuja Medical CenterComment on above:Performed By: #### 2496180, 15960715 ####[address] [address] Nitrite Ql (U)PositiveAbnormalNegativeUniversity Hospitals Ahuja Medical CenterComment on above:Performed By: #### 2937607, 60982559 ####[address] [address]zT (U)6.0 [pH]Invalid Interpretation Code5.0-9.0[facility] Medical CenterComment on above:Performed By: #### 4327133, 17747986 ####[address] [address]Islhsdy (U) [Mass/Vol]2+AbnormalNegativeUniversity Hospitals Ahuja Medical CenterComment on above:Performed By: #### 3951359, 76969634 ####[address] [address]Kuojwzkp gravity (U) [Rel density]1.020Invalid Interpretation Code1.005-1.030[facility] Medical CenterComment on above:Performed By: #### 4874793, 64121032 ####[address] [address]Cqig of Urine collection methodClean CatchNormOhioHealth Van Wert HospitalComment on above: Performed By: #### 1757152, 26489112 ####[address] [address]Yyhjddjedrvr Qn (U)0.2 {Chintan'U}/dL Normal0.0-1.0[facility] Medical CenterComment on above:Performed By: #### 0265127, 74010707 ####[address] [address]FFR Auto Ql (U)NegativeNormalNegAvita Health SystemComment on above:Performed By: #### 1729361, 11864360 ####[place] [address] [place], [place] [address]QXX LM.HPF (Urine sed) [#/Area]7-35Cisqlnke2-7AvglwkBellevue HospitalComment on above:Performed By: #### 9980174, 86333137 ####[address] [address]FD Chest Single Viewon 34-50-1863XC Chest Single ViewNormal [facility] Medical CenterAuto Diffon 30-35-1307Fcrnqubbj/100 WBC (Bld)0.2 % Normal0.0-2.0[facility] Medical CenterComment on above:Order Comment: Order Added by Discern Expert.Performed By: #### 6203777, 75541908, 7438826, 0827738, 5062024, 1125116, 48179348, 5579385, 5437672, 12393254 ####[address] [address]Zqxmihdha/Leukocytes Auto (Bld) [Pure # fraction]0.0 E9/LNormal0.0-0.2FBellevue HospitalComment on above:Order Comment: Order Added by Discern Expert.Performed By: #### 1250713, 44694080, 4365064, 2380368, 3804265, 9506294, 53752739, 8594459, 4605552, 11958646 ####[place] [address] [place], [place] [address]Yxonrzlgido/100 WBC (Bld)0.3 %Normal0.0-8.0[facility] Medical CenterComment on above:Order Comment: Order Added by Discern Expert. Performed By: #### 1928887, 09643262, 0360845, 2905585, 7269516, 0122610, 27250461, 3922509, 0544576, 75765991 ####[place] [address] [place], [place] [address]Rktonvnvybq/Leukocytes Auto (Bld) [Pure # fraction]0.0 E9/LNormal0.0-0.5FBellevue HospitalComment on above:Order Comment: Order Added by Discern Expert.Performed By: #### 5625905, 26146281, 4352730, 9427945, 6802768, 9611091, 68208870, 1880135, 4548194, 13657846 ####[place] [address] [place], [place] [address]Poiqboklqrg/100 WBC (Bld)15.1 %Zypnxt56.0-50.0[facility] Comment on above:Order Comment: Order Added by Discern Expert.Performed By: #### 5205078, 10609398, 4729050, 3688103, 2391140, 0206536, 09441081, 8547524, 8310182, 58602875 ####Julio César [address] [address]Joujrqfsedj/Leukocytes Auto (Bld) [Pure # fraction]1.0 E9/L Normal1.0-4.0[facility] Medical CenterComment on above:Order Comment: Order Added by Discern Expert.Performed By: #### 5123441, 38633293, 2019358, 6259362, 0877276, 5009396, 13028210, 1723057, 3219914, 02380040 ####Julio César [address] [address]Biqyhhazw/100 WBC (Bld)8.3 % Normal4.0-14.0[facility] Medical CenterComment on above:Order Comment: Order Added by Discern Expert.Performed By: #### 4345207, 21302673, 5030419, 9928550, 0460806, 7027993, 18639109, 8564237, 9459861, 24000529 ####Julio Cés[place] [address] [place], [place] [address]Kzpsehnsp/Leukocytes Auto (Bld) [Pure # fraction]0.6 E9/LNormal0.2-1.0[facility] Medical CenterComment on above:Order Comment: Order Added by Discern Expert.Performed By: #### 6890956, 67216017, 2422672, 6382223, 4318065, 1784326, 63744896, 2021815, 6299376, 96967500 ####[facility] [address] [place], [place] [address]Haebknsqwdi/100 WBC (Bld)76.1 %High36.0-75.0[facility] Medical CenterComment on above:Order Comment: Order Added by Discern Expert. Performed By: #### 4421198, 81409266, 0613120, 1297583, 1196042, 6580319, 90697993, 4674831, 2413738, 28545665 ####[place] [address] [place], [place] [address]Vlowipiikny/Leukocytes Auto (Bld) [Pure # fraction]5.2 E9/LNormal2.0-7.5FBellevue HospitalComment on above:Order Comment: Order Added by Discern Expert.Performed By: #### 9136834, 99569658, 3976007, 1771413, 0491076, 8851177, 09489179, 8423174, 4776049, 67466618 ####[place] [address] [place], [place] [address]DPOcd 36-54-1897Bpjtcflspl [Mass/Vol]1.1 mg/dLNormal0.5-1.3FBellevue HospitalComment on above:Performed By: #### 8937257, 93804829, 1224235, 4866190, 9222578, 1013446, 56427392, 4181934, 4773463, 71533633 ####[place] [address] [place], [place] [address]Lrlj nitrogen [Mass/Vol]11 mg/dLNormal5-21[facility] Medical CenterComment on above: Performed By: #### 6326011, 85528409, 6321851, 1125839, 3575865, 7620091, 98830583, 9820494, 4273811, 41476727 ####[facility] [address] [place], [place] [address]Came nitrogen/Creatinine [Mass ratio] 10 No JncxkLdvqdj58-37MdjzjcUniversity Hospitals Ahuja Medical CenterComment on above:Performed By: #### 4735878, 46869357, 2991212, 4033859, 1910493, 0362699, 69151651, 0253629, 6362285, 32323045 ####[facility] [address] [place], [place] [address]Zucpo gap [Moles/Vol]16 mmol/LNormal6-16[facility] Medical CenterComment on above:Performed By: #### 0908695, 31650161, 7669137, 7528885, 8059422, 7431016, 97716006, 5925634, 6618991, 76273658 ####[facility] [address] [place], [place] [address]Qaciyhh [Mass/Vol]8.9 mg/dL Normal8.9-11.1FBellevue HospitalComment on above:Performed By: #### 2975745, 54090056, 7512670, 3848736, 2120741, 0753967, 72077764, 7694816, 3749527, 26639030 ####[facility] [address] [place], [place] [address]Ujdotfxb [Moles/Vol]98 mmol/BSpk778-025LfssuaUniversity Hospitals Ahuja Medical CenterComment on above:Performed By: #### 3617282, 58571986, 5483330, 0332946, 4498431, 5139010, 81567817, 3661379, 4199533, 78466198 ####[facility] [address] [place], [place] [address]AX5 [Moles/Vol]24 mmol/LNormal 21-31[facility] CenterComment on above:Performed By: #### 9007214, 21053447, 0404121, 4583468, 3937857, 9822887, 25033637, 3528486, 1177699, 78756458 ####[facility] [address] [place], [place] [address]Ftiuhna [Mass/Vol]309 mg/bZVfvd22-936AderzpUniversity Hospitals Ahuja Medical CenterComment on above:Result Comment: If this glucose result represents a fasting glucose, interpretation should refer tothe following reference range: 55-99 mg/dL Performed By: #### 0108766, 27720029, 1094390, 4805663, 1700112, 0049642, 81059604, 7337719, 0248538, 59591843 ####[facility] [address] [place], [place] [address]Dpzmfxqir [Moles/Vol]4.7 mmol/LNormal 3.5-5.3FBellevue HospitalComment on above:Performed By: #### 7992386, 44953376, 8202296, 8348733, 7717344, 0582279, 18732354, 7581306, 7285205, 00271248 ####[facility] [address] [place], [place] [address]Lzcgwv [Moles/Vol]133 mmol/FVhe053-091MoywheUniversity Hospitals Ahuja Medical CenterComment on above:Performed By: #### 7454705, 22594947, 4788126, 4590284, 7666653, 1791252, 87108737, 8986582, 3926087, 05963564 ####[facility] [address] [place], [place] [address]OKQ w/ Auto Diffon 07-11-2022 Erythrocyte distribution width (RBC) [Ratio]14.5 %High10.9-14.2FBellevue HospitalComment on above:Performed By: #### 3011715, 44057674, 1779219, 5333151, 0069143, 7493307, 79830242, 1620089, 2530995, 25190191 ####[facility] [address] [place], [place] [address]Jazcadphkh (Bld) [Volume fraction]44.2 %Aawbmv60.7-49.0[facility] Medical CenterComment on above:Performed By: #### 3225911, 86142667, 3209707, 8800590, 9455735, 6537685, 79503426, 7764232, 6975236, 31432915 ####Julio César [facility] [address] [place], [place] [address]Zhrbrrdpyi (Bld) [Mass/Vol]15.0 g/dL Qntpgl61.5-17.5FBellevue HospitalComment on above:Performed By: #### 5788207, 04167046, 0042905, 4297252, 6600862, 1751471, 35608901, 2666906, 4636231, 18616543 ####[facility] [address] [place], [place] [address]AAW (RBC) [Entitic mass]31.8 euVppufl31.0-34.0[facility] CenterComment on above:Performed By: #### 6034144, 23184158, 2447454, 4979398, 2568649, 4707442, 10866712, 2756674, 3642300, 70933574 ####Angela [facility] [address] [place], [place] [address]TJXM (RBC) [Mass/Vol] 34.0 g/fNWjcdyn52.4-36.0[facility] CenterComment on above:Performed By: #### 5569380, 47501442, 8233465, 8720259, 2712764, 5911974, 85738994, 9391129, 5680480, 33045345 ####[facility] [address] [place], [place] [address]EME (RBC) [Entitic vol]93.3 zSVbpngg74.0-100.0 [facility] CenterComment on above:Performed By: #### 7454391, 42780106, 7497160, 6100515, 8573528, 3254885, 81689418, 3797271, 6658124, 82984898 ####Julio César [facility] [address] [place], [place] [address]Mtzwjntf mean volume (Bld) [Entitic vol]9.4 fLNormal6.4-10.8[facility] Medical CenterComment on above:Performed By: #### 3369455, 52964835, 2219281, 9455080, 7415730, 9847493, 28755667, 4849782, 2299127, 42594532 ####Julio César [facility] [address] [place], [place] [address]Fvpefpzmo (Bld) [#/Vol]191.0 E9/MBpuems221.0-500.0[facility] Medical CenterComment on above: Performed By: #### 0771633, 77895273, 5929801, 8052468, 5284811, 0341246, 57852808, 6309952, 2864592, 22127273 ####Julio César [address] [address]AJL (Bld) [#/Vol]4.7 E12/LNormal 4.3-5.9[facility] Medical CenterComment on above:Performed By: #### 8962472, 55375480, 6050821, 6711132, 5049853, 3015433, 21723693, 8785522, 3202066, 07496426 ####Angela [address] [place], [place] [address]LJK corrected for nucl RBC Auto (Bld) [#/Vol]6.8 E9/LNormal4.0-11.0[facility] CenterComment on above:Performed By: #### 7333772, 47103242, 0230547, 6502350, 1737690, 3835419, 39981690, 2544659, 2900822, 73687880 ####Julio César [address] [place] [address] CHEMISTRYOrdered By: SYSTEM SYSTEM on 01-26-4957Ugqvmivo I.cardiac [Mass/Vol] 2.30 pg/mLLow15.90 - 38.40 pg/mLFTMC RemisolAlbumin [Mass/Vol]3.8 g/dLNormal3.3 - 5.0 gm/dLFTMC RemisolAlbumin/Globulin [Mass ratio]1.0 {ratio}Low1.1 - 2.2FT[facility] RemisolALP [Catalytic activity/Vol]92 [iU]/rZhiatq69 - 98 Int._Unit/LFTMC RemisolALT No additional P-5'-P [Catalytic activity/Vol]37 [iU]/dNormal6 - 46 Int._Unit/LFTMC RemisolAnion gap [Moles/Vol]16 mmol/LNormal6 - 16 mEq/LFTMC RemisolAST [Catalytic activity/Vol]28 [iU]/dNormal5 - 43 Int._Unit/LFTMC Remisol Bilirubin [Mass/Vol]1.2 mg/dLHigh0.0 - 1.1 mg/dLFTMC RemisolBilirubin.direct [Mass/Vol]0.2 mg/dLNormal0.1 - 0.4 mg/dLFTMC RemisolBilirubin.indirect [Mass or moles/Vol]1.0 mg/dLHigh0.1 - 0.9 mg/dLFTMC RemisolCalcium [Mass/Vol]8.9 mg/dL Normal8.9 - 11.1 mg/dLFTMC RemisolChloride [Moles/Vol]98 mmol/OPjm998 - 111 mmol/LFTMC RemisolCO2 [Moles/Vol]24 mmol/TDopofq53 - 31 mmol/LFTMC Remisol Creatinine [Mass/Vol]1.1 mg/dLNormal0.5 - 1.3 mg/dLFTMC RemisolGFR/1.73 sq M.predicted among non-blacks MDRD (S/P/Bld) [Vol rate/Area]91 mL/min/1.73 m2 Normal>=59mL/min/1.73 m2FT Chem SGlobulin (S) [Mass/Vol]3.7 g/dLNormal1.4 - 4.0 gm/dLFTMC RemisolGlucose [Mass/Vol]309 mg/gBDsik50 - 199 mg/dLFTMC Remisol Magnesium [Mass/Vol]1.4 mg/dLNormal1.3 - 2.4 mg/dLFT RemisolPotassium [Moles/Vol]4.7 mmol/LNormal3.5 - 5.3 mmol/LFTMC RemisolProtein [Mass/Vol]7.5 g/dLNormal6.0 - 7.8 gm/dLFT RemisolSodium [Moles/Vol]133 mmol/PZos056 - 145 mmol/LFTMC RemisolTroponin I.cardiac [Mass/Vol]4.40 pg/mLLow15.90 - 38.40 pg/mL [facility] RemisolUrea nitrogen [Mass/Vol]11 mg/dLNormal5 - 21 mg/dLFT RemisolUrea nitrogen/Creatinine [Mass ratio]10 mg/uxPumqdn14 - 20[facility] RemisolCOAGULATION Ordered By: Aura Qiu on 90-84-3531fXKM Coag (PPP) [Time]30.5 zEesufg95.1 - 36.5 second(s)[facility] Auto CoagFibrin D-dimer FEU (PPP) [Mass/Vol]1690 ng/mL FEU Invalid Interpretation Yage064 - 500 ng/mL FEUFTMC Auto CoagComment on above: Result Comment: Results Called To er dr guerrero By And Read Back For Confirmation On 07/11/2022 20:41:56 EDT Results Verified By Repeat AnalysisINR Coag (PPP) [Relative time]1.1 {INR} Invalid Interpretation CodeFT Auto CoagPT Coag (PPP) [Time]12.0 sNormal9.4 - 12.5 second(s)[facility] Auto CoagCapillary Glucose POCon 74-08-5196Wsvfbyl [Mass/Vol] 317 mg/sAHsnn72-89ZuscklUniversity Hospitals Ahuja Medical CenterComment on above:Result Comment: Notified RN/PREMerformed By: #### [id number] ####Angela [facility] [address] [place] [address]E-Afuaebh 70-56-3438Pstfzj D-dimer FEU (PPP) [Mass/Vol]1690 CD:5207819801Plgwftxq255-591Kayhlf [facility] Comment on above:Result Comment: [...] pneumonia, severe skin infectionsLiver cirrhosisPregnancyPerformed By: #### 8248928, 63339045, 9852119, 6098196, 1286708, 7543703, 68424639, 8131730, 8610306, 23558233 ####Julio César [facility] [address] [place], [place] [address]WB Note-Nursing on 40-57-3046CD Note-NursingNormalUniversity Hospitals Ahuja Medical CenterHEMATOLOGYOrdered By: SYSTEM SYSTEM on 18-20-8131Qxhffxtzn/100 WBC (Bld)0.2 %Normal0.0 - 2.0 %[facility] HemeAutoSSBasophils/Leukocytes Auto (Bld) [Pure # fraction]0.0 E9/LNormal0.0 - 0.2 E9/LFTMC HemeAutoSSEosinophils/100 WBC (Bld)0.3 %Normal0.0 - 8.0 %[facility] HemeAutoSSEosinophils/Leukocytes Auto (Bld) [Pure # fraction]0.0 E9/LNormal0.0 - 0.5 E9/LFTMC HemeAutoSSLymphocytes/100 WBC (Bld)15.1 %Gdueab59.0 - 50.0 %[facility] HemeAutoSSLymphocytes/Leukocytes Auto (Bld) [Pure [...] - 14.2 %[facility] HemeAutoSSHematocrit (Bld) [Volume fraction]44.2 %Bqmwxy91.7 - 49.0 %[facility] HemeAutoSSHemoglobin (Bld) [Mass/Vol]15.0 g/sPDlrpec32.5 - 17.5 gm/dLFTMC HemeAutoSSMCH (RBC) [Entitic mass]31.8 boAriwxc43.0 - 34.0 pgFTMC HemeAutoSSMCHC (RBC) [Mass/Vol]34.0 g/xCIilqsl78.4 - 36.0 gm/dLFTMC HemeAutoSSMCV (RBC) [Entitic vol]93.3 zYExyqcw67.0 - 100.0 fLFTMC HemeAutoSSPlatelet mean volume (Bld) [Entitic vol]9.4 fLNormal6.4 - 10.8 fLFTMC HemeAutoSSPlatelets (Bld) [#/Vol]191.0 E9/ZZxffrk718.0 - 500.0 E9/LFTMC HemeAutoSSRBC (Bld) [#/Vol]4.7 E12/LNormal4.3 - 5.9 E12/LFTMC HemeAutoSSWBC corrected for nucl RBC Auto (Bld) [#/Vol]6.8 E9/LNormal4.0 - 11.0 E9/LFTMC HemeAutoSSHep Func Panelon 07-11-2022 Albumin [Mass/Vol]3.8 g/dLNormal3.3-5.0[facility] CenterComment on above:Performed By: #### 7924140, 23633465, 3909311, 4194728, 2526549, 5690007, 49355922, 8760780, 2736997, 46992955 ####[address] [place], [place] [address]Tozoyme/Globulin (S) [Mass conc ratio]1.0Low1.1-2.2Fisher [facility] CenterComment on above:Performed By: #### 3292797, 29046650, 3768772, 5059735, 8209797, 1069438, 30287451, 2489341, 3714947, 17141774 ####[address] [address]UKR [Catalytic activity/Vol]92 Int._Unit/HGyjpph69-61DhszekUniversity Hospitals Ahuja Medical CenterComment on above:Performed By: #### 5732402, 30002462, 9372190, 9421097, 7172823, 6215428, 76888291, 9140534, 5853931, 92856104 ####[address] [address]LQP No additional P-5'-P [Catalytic activity/Vol]37 Int._Unit/LNormal6-46[facility] Medical CenterComment on above:Performed By: #### 5728397, 39784098, 4697457, 4320545, 9023036, 4726676, 59733158, 0731921, 2878287, 85930966 ####[address] [address]FOO [Catalytic activity/Vol]28 Int._Unit/LNormal5-43[facility] Comment on above:Performed By: #### 6811410, 28431570, 6631818, 4001995, 5737333, 5417775, 26216699, 0883370, 1349960, 84425349 ####[address] [address]Ffrenaxob [Mass/Vol]1.2 mg/dL High0.0-1.1FBellevue HospitalComment on above:Performed By: #### 3914452, 29964471, 4498648, 2835190, 7552119, 9854901, 60867491, 9671910, 8559531, 72551096 ####Angela [facility] [address] [place], [place] [address]Exltscgtp.direct [Mass/Vol]0.2 mg/dLNormal0.1-0.4FBellevue HospitalComment on above:Performed By: #### 0139334, 09827303, 3765027, 1578502, 2119674, 1052418, 64499086, 9003122, 8042969, 41465948 ####[facility] [address] [place] [address] Bilirubin.indirect [Mass or moles/Vol]1.0 mg/dLHigh0.1-0.9[facility] Medical CenterComment on above:Performed By: #### 5532122, 78180145, 4220039, 8059479, 6995342, 7385392, 41424186, 6545073, 1222129, 01497470 ####Julio César [facility] [address] [place], [place] [address]Gdsetyid (S) [Mass/Vol]3.7 g/dLNormal1.4-4.0[facility] CenterComment on above:Performed By: #### 1419212, 23746952, 4908423, 3930819, 9041626, 4595325, 40740415, 6659908, 3878896, 54391092 ####Angela [facility] [address] [place], [place] [address]Hwjsmam [Mass/Vol]7.5 g/dLNormal6.0-7.8[facility] CenterComment on above:Performed By: #### 2950172, 10477707, 3574834, 8915133, 6535544, 0548038, 83341279, 0911946, 8006604, 81742358 ####[facility] [address] [place], [place] [address]Kntlcyajph - Microbiology and Antimicrobial susceptibilityOrdered By: Lupe Evon on 64-28-4989Tnvrsxjn identified Cx Nom (U)>100,000 cfu/ml Staphylococcus species Coagulase Positive [facility] HospitalMICRO OTHER TESTSOrdered By: Mariana Doyle on 09-89-5637Lkbdkewunc A AgNegative (07/11/22 10:22 PM)NormalNegativeE[facility] Man SeroInfluenzae B AgNegative (07/11/22 10:22 PM)NormalNegativeEASTERN [facility] Man SeroRapid COV Int NEG CtlPass (07/11/22 10:22 PM)NormalEASTERN [facility] Man SeroRapid COV Int POS CtlPass (07/11/22 10:22 PM)NormalEASTERN [facility] Man SeroSARS-CoV+SARS-CoV-2 (COVID-19) Ag IA.rapid Ql (Resp)Not Detected (07/11/22 10:22 PM)NormalNot DetectedEASTERN [facility] Man SeroMagnesiumon 57-20-2480Pwpgbiqwl [Mass/Vol]1.4 mg/dLNormal1.3-2.4Fisher [facility] CenterComment on above: Performed By: #### 3241052, 11572756, 6650810, 5806243, 8669651, 4097543, 75154978, 6330956, 1708046, 66701254 ####[facility] [address] [place], [place] [address]Bkps Screenon 63-11-1679Avnggbuzgps Ab LA Ql (S)NegativeNormalNegativeFisher [facility] Medical CenterComment on above: Performed By: #### 8307905, 25844931, 9473217, 6347083, 6535495, 0912448, 96522456, 0302792, 8860364, 26538180 ####[facility] [address] [place], [place] [address]SU & PTTon 31-36-7157eDUG Coag (PPP) [Time]30.5 second(s)Hqppkm64.1-36.5FBellevue HospitalComment on above: Result Comment: Parameter 15 days [...] samples obtained at 7 different centers using [employer] coagulation reagent and instrumentation as [facility]. Currently there are no coagulation studies available worldwide for children to 14 days, and no normal ranges. Heparin therapeutic range (represented by Anti-Factor Xa activity of 0.2 - 0.4 U/mL) corresponds to PTT of 56.6 - 109.0 sec.Performed By: #### 8658123, 97913357, 0416710, 2782126, 2755272, 6817897, 11066045, 9988701, 8455648, 65256402 ####Julio César [facility] [address] [place], [place] [address]ZCR Coag (PPP) [Relative time]1.1 {INR}Invalid Interpretation CodeFisher [facility] Medical CenterComment on above:Result Comment: INR results are specifically intended to assess patients stabilized on long-term Anticoagulation therapy suggested INR?s ?Less Intensive Anticoagulation? 2.0 ? 3.0Conventional Range 3.0 ? 4.5Performed By: #### 5368245, 81978509, 7967535, 7119960, 4719424, 1009567, 24883453, 1629610, 4067121, 36308841 ####[facility] [address] [place], [place] [address]AG Coag (PPP) [Time] 12.0 second(s)Normal9.4-12.5FBellevue HospitalComment on above:Result Comment: 15 days - 4 [...] the same coagulation reagent and instrumentation as [facility]. Currently there are no coagulation studies available worldwide for children to 14 days, and no normal ranges. Performed By: #### 6673814, 39109287, 4011563, 7325046, 3126543, 4675690, 25389132, 9177273, 2310199, 10061969 ####[facility] [address] [place] [address]Pdr-Amviqst Noteon 13-68-4109Upu- Arrival NoteNoSumma Health Akron CampusRapid COVID Antigen ([facility])on 60-34-1470WFPUHRFG TO INTENSIVE CARE UNIT FOR CONDITION OF INTEREST:FIND:PT:NO Protestant HospitalComment on above:Performed By: #### 55828179, [id number] ####[address] [address]DVXWIOBW IN A HEALTHCARE SETTING:FIND:PT:NONormalUniversity Hospitals Ahuja Medical CenterComment on above:Performed By: #### 83038767, [id number] ####[address] [place], [place] [address]KCDKQ TEST FOR CONDITION OF INTEREST:FIND:PT:YESNormalUniversity Hospitals Ahuja Medical CenterComment on above:Performed By: #### 80350239, [id number] ####[address] [place], [place] [address]QFY SYMPTOMS RELATED TO CONDITION OF INTEREST:FIND:PT:YESNormOhioHealth Van Wert HospitalComment on above:Performed By: #### 42187660, [id number] ####[facility] [address] [place], [place] [address]WUFSEOUKRZHM FOR CONDITION OF INTEREST:FIND:PT:NO NormalUniversity Hospitals Ahuja Medical CenterComment on above:Performed By: #### 64477546, [id number] ####[facility] [address] [place], [place] [address]PBBEEPHNE STATUS:FIND:PT:NONormalUniversity Hospitals Ahuja Medical CenterComment on above:Performed By: #### 15548629, [id number] ####[address] [place], [place] [address]YMIFSMP IN A CONGREGA CARE SETTING:FIND:PT:NONormalUniversity Hospitals Ahuja Medical CenterComment on above:Performed By: #### 08504991, [id number] ####[address] [place], [place] [address]DFTQDMIXNyzvclc By: Aura Qiu on 07-11-2022 Heterophile Ab LA Ql (S)Negative (07/11/22 8:19 PM)NormalNegativeEASTERN [facility] Man SeroTroponin 0 Hr.on 97-12-2660Ohbczjqd I.cardiac [Mass/Vol]4.40 pg/mLLow15.90-38.40[facility]ja Medical CenterComment on above:Result Comment: The 95% CI (Confidence Interval) PPV (Positive Predictive Value) for myocardial infarction in females is 38 pg/mL, in males 51 pg/mL. The results should be used in conjunction with clinical conditions of myocardial infarction.(Access High Sensitivity Troponin I Instructions For Use, Savana Ruben, October 2017)Performed By: #### 6145976, 33721409, 6975995, 3835044, 8080714, 5417999, 34511608, 9682984, 6437666, 19628261 ####[facility] [address] [place], [place] [address]ZICLJPVDJWYfbhgfz By: Mariana Doyle on 14-64-3214Keetsybb LM Ql (Urine sed)1+ /HPFInvalid Interpretation CodeTrace/HPFEASTERN [facility]LA[facility]OMA [facility] UA Auto SSBilirubin Ql (U)Negative (07/11/22 10:00 PM)NormalNegativeEASTERN [facility] UA Auto SSClarity (U)Clear (07/11/22 10:00 PM)NormalClearFTM UA Auto SSColor (U)Yellow (07/11/22 10:00 PM)NormalYellowFT UA Auto SSEpithelial cells.squamous LM.HPF (Urine sed) [#/Area]3-4 /HPFNormal0-2/HPFFT UA Auto SSGlucose Test strip (U) [Mass/Vol]2+ *ABN* (07/11/22 10:00 PM)Invalid Interpretation CodeNegativeEASTERN [facility] UA Auto SSHemoglobin Ql (U)Trace *ABN* (07/11/22 10:00 PM)Invalid Interpretation CodeNegativeEASTERN [facility] UA Auto SSKetones (U) [Mass/Vol]Negative (07/11/22 10:00 PM)NormalNegativeEASTERN [facility] UA Auto SSLithium.plasma/[place].RBC (Bld) [Mass ratio]4-20 /HPFNormal0-3/HPFEASTERN [facility]LA[facility] UA Auto SSMucus Ql (Urine sed)1+ (07/11/22 10:00 PM)NormalEASTERN [facility] UA Auto SSNitrite Ql (U)Positive *ABN* (07/11/22 10:00 PM)Invalid Interpretation CodeNegativeEASTERN [facility] UA Auto SSpH (U)6.0 *NA* (07/11/22 10:00 PM)Invalid Interpretation Code5.0 - 9.0[facility] UA Auto SSProtein (U) [Mass/Vol]2+ *ABN* (07/11/22 10:00 PM)Invalid Interpretation CodeNegativeEASTERN [facility] UA Auto SSSpecific gravity (U) [Rel density]1.020 *NA* (07/11/22 10:00 PM)Invalid Interpretation Code1.005 - 1.030[facility] UA Auto SSUA Spec DescClean Catch (07/11/22 10:00 PM)NormalEASTERN [facility]LA[facility]OMA [facility] UA Auto SSUrobilinogen Qn (U)0.0882518 {Chintan'U}/dLNormal0.0 - 1.0 EU/dLEASTERN OKLAHOMA [facility] UA Auto SSWBC Auto Ql (U)Negative (07/11/22 10:00 PM)NormalNegativeEASTERN [facility] UA Auto SSWBC LM.HPF (Urine sed) [#/Area]6- 15 /HPFInvalid Interpretation Code0-5/HPFEASTERN OKLAHOMA [facility]ICAL [facility] UA Auto SSeGFRon 07-11-2022 GFR/1.73 sq M.predicted among non-blacks MDRD (S/P/Bld) [Vol rate/Area]91 mL/min/1.73 l9Nlflua>=59University [facility]huja Medical CenterComment on above:Order Comment: Order added by Discern Expert.Result Comment: Chronic kidney disease could be indicated at eGFR's of less than 60 mL/min/1.73m2. Kidney failure is indicated at less than 15 mL/min/1.73m2.Performed By: #### 0362811, 47023763, 0755693, 9254086, 7447339, 2322013, 85630304, 9212194, 9963923, 63154407 ####Julio César [facility] [address] [place], [place] [address]POINT OF CARE GLUCOSEon 48-54-4383Dcloymr [Mass/Vol]512 mg/dLCritically pede47-892RbgPremier Health Upper Valley Medical CenterComment on above:Result Comment: Result Not ConfirmedPerformed By: #### SEDR #### [facility] [address] [place] [address] Dr. Travis Massey AUTO DIFFon 74-70-6951UMZE #0.0 103/ulNormal0.0-0.1The [facility] Health TroyComment on above:Performed By: #### CBC #### [facility] [address] [place] [address] Dr. Travis Rankinphils/100 WBC (Bld)0.1 %Critically low0.2-2.0The [facility] TroyComment on above:Performed By: #### CBC #### [facility] [address] [place] [address] Dr. Travis Rdz #0.0 103/ulNormal0.0-0.7The [facility] TroyComment on above: Performed By: #### CBC #### [facility] [address] [address] [address] Travis Riveroosinophils/100 WBC (Bld)0.1 %Critically low0.9-7.0The [facility] on above:Performed By: #### CBC #### [facility] [address] [place] [address] Dr. Travis Riverorythrocyte distribution width (RBC) [Ratio]13.6 %Zcutvh46.0-15.0 [facility] Medical CenterComment on above:Performed By: #### CBC #### [facility] [address] [place] [address] Dr. Travis SanchezHematocrit (Bld) [Volume fraction]41.6 %Critically low42.0-54.0 [facility] on above:Performed By: #### CBC #### [facility] [address] [place] [address] Dr. Travis SanchezHemoglobin (Bld) [Mass/Vol]13.9 g/dLCritically low14.0-18.0The [facility] Memorial Hospitalment on above:Performed By: #### CBC #### [facility] [address] [place] [address] Dr. Travis Kaur #0.05 10e3/ulCritically high0.00-0.03[facility] Comment on above:Performed By: #### CBC #### [facility] [address] [place] [address] Dr. Travis Kaur %0.5 %Normal0.0-0.5[facility] on above: Performed By: #### CBC #### [facility] [address] [place] [address] Dr. Travis StollH #1.1 103/ulCritically low1.2-3.8[facility] Comment on above:Performed By: #### CBC #### [facility] [address] [place] [address] Dr. Travis Hernandezmphocytes/100 WBC (Bld)12.2 %Critically low20.5-60.0[facility]:Performed By: #### CBC #### [facility] [address] [address] [address] Travis Martinez DIFF REQNONormalThe [facility] on above: Performed By: #### CBC #### [facility] [address] [address] [address] Travis Glasgow (RBC) [Entitic mass]31.2 flOrumlw73.9-34.0[facility] on above:Performed By: #### CBC #### [facility] [address] [place] [address] Dr. Travis Glasgow (RBC) [Mass/Vol]33.4 g/oYAbexyv54.9-35.2[facility] on above:Performed By: #### CBC #### [facility] [address] [place] [address] Dr. Travis Glasgow (RBC) [Entitic vol]93.3 bOWhpidg74.0-94.0[facility] on above:Performed By: #### CBC #### [facility] [address] [place] [address] Dr. Travis Fox #0.5 103/ulNormal0.3-0.8[facility] on above:Performed By: #### CBC #### [facility] [address] [place] [address] Dr. Travis Smallsocytes/100 WBC (Bld)5.3 %Normal1.7-12.0[facility] Comment on above:Performed By: #### CBC #### [facility] [address] [place] [address] Dr. Travis Raza #7.5 103/ulCritically high1.4-6.5The [facility] Comment on above:Performed By: #### CBC #### [facility] [address] [place] [address] Dr. Travis Guidoutrophils/100 WBC (Bld)81.8 %Critically high43.0-75.0The [facility] TroyComment on above:Performed By: #### CBC #### [facility] [address] [address] [address] Travis SanchezPlatelet mean volume (Bld) [Entitic vol]10.6 fLNormal9.5-13.5The [facility] TroyComment on above:Performed By: #### CBC #### [facility] [address] [address] [address] Travis SanchezPLT255 103/lySezxds234-196Xwy [facility] TroyComment on above: Performed By: #### CBC #### [facility] [address] [address] [address] Travis SanchezRBC4.46 106/ulCritically low4.70-6.10The [facility] TroyComment on above:Performed By: #### CBC #### [facility] [address] [address] [address] Travis SanchezWBC9.1 103/ulNormal4.0-11.0The [facility] TroyComment on above: Performed By: #### CBC #### [facility] [address] [place] [address] Dr. Travis Jeffrey 29-92-4514NMZ8.6 mg/dLCritically high<=1.0The [facility] TroyComment on above:Performed By: #### SEDR #### [facility] [address] [address] [address] Travis SanchezPROF CHEM 8 (BAS METB)on 97-00-8700[place]ac[place] gap [Moles/Vol]13.2 mmol/LNormalThe [facility] TroyComment on above:Performed By: #### SEDR #### [facility] [address] [place] [address] Dr. Travis SanchezCalcium [Mass/Vol]9.3 mg/dLNormal8.5-10.1The [facility] Comment on above:Performed By: #### SEDR #### [facility] [address] [address] [address] Travis SanchezChloride [Moles/Vol]103 mmol/WZaksrj54-383Dqk [facility] Comment on above:Performed By: #### SEDR #### [facility] [address] [place] [address] Dr. Travis SanchezCO2 [Moles/Vol]24.3 mmol/XKvkyoa16.0-32.0The [facility] Comment on above:Performed By: #### SEDR #### [facility] [address] [place] [address] Dr. Travis SanchezCreatinine [Mass/Vol]0.72 mg/dLNormal0.70-1.30The [facility] TroyComment on above:Performed By: #### SEDR #### [facility] [address] [place] [address] Dr. Travis RiveroGFR-AF AUSTRALIAN>60Normal>=60The [facility] TroyComment on above:Performed By: #### SEDR #### [facility] [address] [place] [address] Dr. Travis RiveroGFR-NON AF AUSTRALIAN>60Normal>=60The [facility] TroyComment on above:Performed By: #### SEDR #### [facility] [address] [place] [address] Dr. Travis SanchezGlucose [Mass/Vol]290 mg/dLCritically wtye10-117Djx [facility] TroyComment on above:Performed By: #### SEDR #### [facility] [address] [place] [address] Dr. Travis SanchezPotassium [Moles/Vol]4.5 mmol/LNormal3.5-5.1The [facility] Comment on above:Performed By: #### SEDR #### [facility] [address] [place] [address] Dr. Travis SanchezSodium [Moles/Vol]136 mmol/GJywxtn007-594Rxz [facility] Comment on above:Performed By: #### SEDR #### [facility] [address] [place] [address] Dr. Travis SanchezUrea nitrogen [Mass/Vol]20.0 mg/dLCritically high7.0-18.0[facility] Hospitalment on above:Performed By: #### SEDR #### [facility] [address] [place] [address] Dr. Travis SanchezUrea nitrogen/Creatinine [Mass ratio]27.8 mg/mgNormalThBellevue HospitalComment on above:Performed By: #### SEDR #### [facility] [address] [place] [address] Dr. Travis TrujilloC AUTO DIFFon 68-53-4194MLJF #0.0 103/ulNormal0.0-0.1The [facility] TroyComment on above:Performed By: #### SEDR #### [facility] [address] [place] [address] Dr. Travis SanchezBasophils/100 WBC (Bld)0.2 %Normal0.2-2.0[facility] Comment on above:Performed By: #### SEDR #### [facility] [address] [place] [address] Dr. Travis Rdz #0.0 103/ulNormal0.0-0.7The [facility] TroyComment on above: Performed By: #### SEDR #### [facility] [address] [place] [address] Dr. Travis Riveroosinophils/100 WBC (Bld)0.4 %Critically low0.9-7.0The [facility] TroyComment on above:Performed By: #### SEDR #### [facility] [address] [place] [address] Dr. Travis Riverorythrocyte distribution width (RBC) [Ratio]13.9 %Ueuldj23.0-15.0 [facility] CenterComment on above:Performed By: #### SEDR #### [facility] [address] [place] [address] Dr. Travis SanchezHematocrit (Bld) [Volume fraction]42.0 %Tgmubq60.0-54.0The [facility] TroyComment on above:Performed By: #### SEDR #### [facility] [address] [place] [address] Dr. Travis SanchezHemoglobin (Bld) [Mass/Vol]14.2 g/fKPumdxd30.0-18.0The [facility] TroyComment on above:Performed By: #### SEDR #### [facility] [address] [place] [address] Dr. Travis Kaur #0.03 10e3/ulNormal0.00-0.03The [facility] TroyComment on above:Performed By: #### SEDR #### [facility] [address] [place] [address] Dr. Travis Kaur %0.4 %Normal0.0-0.5The [facility]Comselect [facility] on above: Performed By: #### SEDR #### [facility] [address] [place] [address] Dr. Travis StollH #1.7 103/ulNormal1.2-3.8The [facility] TroyComment on above:Performed By: #### SEDR #### [facility] [address] [place] [address] Dr. Travis Stollhocytes/100 WBC (Bld)20.7 %Ndogsu97.5-60.0The [facility]Comselect [facility] hospital on above:Performed By: #### SEDR #### [facility] [address] [place] [address] Dr. Travis GuallpaUAL DIFF REQNONormalThe [facility] TroyComment on above: Performed By: #### SEDR #### [facility] [address] [place] [address] Dr. Travis Glasgow (RBC) [Entitic mass]31.8 thTcqfnl95.9-34.0The [facility] TroyComment on above:Performed By: #### SEDR #### [facility] [address] [place] [address] Dr. Travis Glasgow (RBC) [Mass/Vol]33.8 g/mMCkmmkn22.9-35.2The [facility] TroyComment on above:Performed By: #### SEDR #### [facility] [address] [address] [address] Travis GlasgowV (RBC) [Entitic vol]94.0 jHOzmpdo75.0-94.0The [facility] TroyComment on above:Performed By: #### SEDR #### [facility] [address] [place] [address] Dr. Travis Fox #0.5 103/ulNormal0.3-0.8The [facility] TroyComment on above:Performed By: #### SEDR #### [facility] [address] [place] [address] Dr. Travis Smallsocytes/100 WBC (Bld)5.9 %Normal1.7-12.0The [facility] on above:Performed By: #### SEDR #### [facility] [address] [place] [address] Dr. Travis Raza #5.9 103/ulNormal1.4-6.5The [facility] TroyComment on above:Performed By: #### SEDR #### [facility] [address] [place] [address] Dr. Travis Guidoutrophils/100 WBC (Bld)72.4 %Syuknh73.0-75.0The [facility] TroyComment on above:Performed By: #### SEDR #### [facility] [address] [place] [address] Dr. Travis Luilet mean volume (Bld) [Entitic vol]11.3 fLNormal9.5-13.5The [facility] TroyComment on above:Performed By: #### SEDR #### [facility] [address] [place] [address] Dr. Travis SanchezPLT236 103/gxQaeujp324-665Nia [facility] TroyComment on above: Performed By: #### SEDR #### [facility] [address] [place] [address] Dr. Travis SanchezRBC4.47 106/ulCritically low4.70-6.10The [facility] TroyComment on above:Performed By: #### SEDR #### [facility] [address] [address] [address] Travis SanchezWBC8.1 103/ulNormal4.0-11.0The [facility] TroyComment on above: Performed By: #### SEDR #### [facility] [address] [address] [address] Travis Jeffrey 34-37-6606XAL2.9 mg/dLCritically high<=1.0The [facility] on above:Performed By: #### SEDR #### [facility] [address] [address] [address] Travis SanchezCoswetad-19 PCR ([facility])on 06-29-8854PDZB-CoV-2 (COVID-19) RNA ECTOR+probe Ql (Unsp spec)Not detectedNormalNOT DETECTEDThe [facility] Comment on above:Result Comment: When diagnostic testing [...] for this test is supported by the [place] of Health and Human Service's declaration that [...] longer be used).Performed By: #### CBC #### [facility] [address] [address] [address] Travis BORDEN WO CONon 87-69-9902HKI LSPINE WO CONHISTORY: Right- sided low back [...] Electronically authenticated by: GERTRUDIS CHAUHAN Date: 2022-06-18 13:13[facility] CampusPOINT OF CARE GLUCOSEon 41-05-0007Dxbldpd [Mass/Vol]352 mg/dL Critically fchw14-153IzyPremier Health [facility] Medical CenterComselect specialty hospital on above:Performed By: #### POCGLUC #### [facility] [address] [address] [address] Travis SanchezGlucose [Mass/Vol]183 mg/dLCritically gbal33-435XrnPremier Health Upper [facility] Medical CenterComselect specialty hospital on above:Performed By: #### SEDR #### [facility] [address] [address] [address] Travis SanchezGlucose [Mass/Vol]178 mg/dLCritically owgq23-038QwmPremier Health Upper Valley Medical CenterComment on above:Performed By: #### POCGLUC #### [facility] [address] [address] [address] Travis SanchezGlucose [Mass/Vol]252 mg/dLCritically oxnn63-977MukPremier Health Upper [facility] Medical CenterComselect specialty hospital on above:Performed By: #### PSASC #### [facility] [address] [address] [address] Travis SanchezGlucose [Mass/Vol]272 mg/dLCritically jaci63-122SkbMcCullough-Hyde Memorial Hospital on above:Performed By: #### SEDR #### [facility] [address] [address] [address] Travis SanchezPROF CHEM 8 (BAS METB)on 73-58-1236Gllqb gap [Moles/Vol]15.3 mmol/LNormalPrem[facility] Health [facility] CenterComselect specialty hospital on above:Performed By: #### SEDR #### [facility] [address] [address] [address] Travis SanchezCalcium [Mass/Vol]8.6 mg/dLNormal8.5-10.1[facility] Comment on above:Performed By: #### SEDR #### [facility] [address] [address] [address] Travis SanchezChloride [Moles/Vol]102 mmol/QVyjyzf35-998Fsk [facility] Comment on above:Performed By: #### SEDR #### [facility] [address] [address] [address] Travis SanchezCO2 [Moles/Vol]25.1 mmol/HArjlyh98.0-32.0[facility] Comment on above:Performed By: #### SEDR #### [facility] [address] [address] [address] Travis SanchezCreatinine [Mass/Vol]0.84 mg/dLNormal0.70-1.30[facility] CenterComment on above:Performed By: #### SEDR #### [facility] [address] [address] [address] Travis RiveroGFR-AF AUSTRALIAN>60Normal>=60[facility] CenterComment on above:Performed By: #### SEDR #### [facility] [address] [address] [address] Travis RiveroGFR-NON AF AUSTRALIAN>60Normal>=60The [facility] TroyComment on above:Performed By: #### SEDR #### [facility] [address] [address] [address] Travis SanchezGlucose [Mass/Vol]348 mg/dLCritically vgky41-763Uve [facility] TroyComment on above:Performed By: #### SEDR #### [facility] [address] [address] [address] Travis SanchezPotassium [Moles/Vol]4.4 mmol/LNormal3.5-5.1[facility] Comment on above:Performed By: #### SEDR #### [facility] [address] [address] [address] Travis SanchezSodium [Moles/Vol]138 mmol/OUxdekq656-612[facility] Comment on above:Performed By: #### SEDR #### [facility] [address] [address] [address] Travis Whitten nitrogen [Mass/Vol]14.0 mg/dLNormal7.0-18.0The [facility] TroyComment on above:Performed By: #### SEDR #### [facility] [address] [address] [address] Travis SanchezUrea nitrogen/Creatinine [Mass ratio]16.7 mg/mgNormalThe [facility] TroyComment on above:Performed By: #### SEDR #### [facility] [address] [address] [address] Travis SanchezSED RATE WESTERGRENon 70-63-9897FFH RATE35 mm/hrCritically high <=15The [facility] TroyComment on above:Performed By: #### SEDR #### [facility] [address] [address] [address] Travis SanchezCT LSPINE WO CONon 76-27-5493AG LSPINE WO CONEXAM: CT LSPINE WO CON [...] consultation is necessary Electronically authenticated by: ELIUD HERANNDEZ Date: 2022-06-12 18:44NoThe Jewish HospitalAmbulatory Visit Summaryon 13-23-7770Vpoofksqfw Visit Summary [facility] HospitalPatient Educationon 26-23-3889Wpyhdpy Education Protestant HospitalUrology Office/Clinic Noteon 69-05-3520Fceusvt Office/Clinic NoteNormOhioHealth Van Wert HospitalComment on above:Result Comment: Electronically Signed By: MARIANA BRIGGS PA-C\.br\Date and Time Signed: 06/11/2308:07 EDT\.br\Electronically Co-Signed By: Alannah Ragland MA\.br\Date and Time Co-Signed: 06/11/22 09:01 EDTCBC AUTO DIFFon 52-67-5340JLSV #0.1 103/ulNormal0.0-0.1The [facility] TroyComment on above:Performed By: #### CBC #### [facility] [address] [address] [address] Travis SanchezBasophils/100 WBC (Bld)0.4 %Normal0.2-2.0[facility] Comment on above:Performed By: #### CBC #### [facility] [address] [address] [address] Travis Rdz #0.0 103/ulNormal0.0-0.7The [facility] TroyComment on above: Performed By: #### CBC #### [facility] [address] [address] [address] Travis Riveroosinophils/100 WBC (Bld)0.3 %Critically low0.9-7.0[facility] CenterComment on above:Performed By: #### CBC #### [facility] [address] [address] [address] Travis Mcintyrethrocyte distribution width (RBC) [Ratio]14.3 %Sxzdaq63.0-15.0 [facility] CenterComment on above:Performed By: #### CBC #### [facility] [address] [address] [address] Travis SanchezHematocrit (Bld) [Volume fraction]41.2 %Critically low42.0-54.0 [facility] CenterComment on above:Performed By: #### CBC #### [facility] [address] [place] [address] Dr. Travis SanchezHemoglobin (Bld) [Mass/Vol]13.9 g/dLCritically low14.0-18.0The [facility] TroyComment on above:Performed By: #### CBC #### [facility] [address] [place] [address] Dr. Travis Kaur #0.05 10e3/ulCritically high0.00-0.03The [facility] Comment on above:Performed By: #### CBC #### [facility] [address] [place] [address] Dr. Travis Kaur %0.4 %Normal0.0-0.5The [facility] TroyComment on above: Performed By: #### CBC #### [facility] [address] [place] [address] Dr. Travis Marrero #1.2 103/ulNormal1.2-3.8The [facility] TroyComment on above:Performed By: #### CBC #### [facility] [address] [place] [address] Dr. Travis Stollhocytes/100 WBC (Bld)8.9 %Critically low20.5-60.0The [facility] TroyComment on above:Performed By: #### CBC #### [facility] [address] [place] [address] Dr. Travis Martinez DIFF REQNONormalThe [facility] TroyComment on above: Performed By: #### CBC #### [facility] [address] [place] [address] Dr. Travis Coats (RBC) [Entitic mass]31.5 hvGzdwgd14.9-34.0The [facility] TroyComment on above:Performed By: #### CBC #### [facility] [address] [place] [address] Dr. Travis Glasgow (RBC) [Mass/Vol]33.7 g/nAWkrluz53.9-35.2The [facility] TroyComment on above:Performed By: #### CBC #### [facility] [address] [place] [address] Dr. Yilan ChangMCV (RBC) [Entitic vol]93.4 bMJgxqrw06.0-94.0The [facility] TroyComment on above:Performed By: #### CBC #### [facility] [address] [place] [address] Dr. Travis Fox #1.0 103/ulCritically high0.3-0.8The [facility] Comment on above:Performed By: #### CBC #### [facility] [address] [place] [address] Dr. Travis Smallsocytes/100 WBC (Bld)7.3 %Normal1.7-12.0[facility] Comment on above:Performed By: #### CBC #### [facility] [address] [place] [address] Dr. Travis Raza #11.4 103/ulCritically high1.4-6.5ThBellevue Hospital Comment on above:Performed By: #### CBC #### [facility] [address] [place] [address] Dr. Travis Guidoutrophils/100 WBC (Bld)82.7 %Critically high43.0-75.0[facility] CenterComment on above:Performed By: #### CBC #### [facility] [address] [place] [address] Dr. Travis Luilet mean volume (Bld) [Entitic vol]11.0 fLNormal9.5-13.5The [facility] TroyComment on above:Performed By: #### CBC #### [facility] [address] [place] [address] Dr. Travis DodgeT262 103/wiCavaai684-285Tct [facility] TroyComment on above: Performed By: #### CBC #### [facility] [address] [place] [address] Dr. Travis SanchezRBC4.41 106/ulCritically low4.70-6.10The [facility] TroyComment on above:Performed By: #### CBC #### [facility] [address] [place] [address] Dr. Travis SanchezWBC13.8 103/ulCritically high4.0-11.0The [facility] TroyComment on above:Performed By: #### CBC #### [facility] [address], [place] [address] Dr. Travis SanchezCRPon 22-54-1575YUJ82.3 mg/dLCritically high<=1.0The [facility] TroyComment on above:Performed By: #### PSASC #### [facility] [address], [place] [address] Dr. Travis SanchezCT FACIAL BONES WO CONon 22-81-6046GB FACIAL BONES WO CON INDICATION: 31 years [...] Electronically authenticated by: SEGUN GALLEGOS Date: 2022-05-24 00:14[facility] CampusLACTATE/LACTIC ACIDon 36-85-0601Rnwajbd [Moles/Vol]1.3 mmol/L Normal0.4-2.0[facility] CenterComment on above:Performed By: #### CBC #### [facility] [address] [place] [address] Dr. Travis SanchezPOINT OF CARE GLUCOSEon 36-17-3901Nhdmilf [Mass/Vol]208 mg/dL Critically lofg78-473MnrPremier Health Upper Valley Medical CenterComment on above:Performed By: #### PSASC #### [facility] [address] [place] [address] Dr. Travis SanchezPROF CHEM 8 (BAS METB)on 27-13-1166Rrlcm gap [Moles/Vol]13.9 mmol/LNormalThe [facility] TroyComment on above:Performed By: #### PSASC #### [facility] [address] [address] [address] Travis SanchezCalcium [Mass/Vol]8.8 mg/dLNormal8.5-10.1[facility] Comment on above:Performed By: #### PSASC #### [facility] [address] [address] [address] Travis SanchezChloride [Moles/Vol]98 mmol/FEhmqkn05-797FocPremier Health [facility] Comment on above:Performed By: #### PSASC #### [facility] [address] [address] [address] Travis SanchezCO2 [Moles/Vol]25.9 mmol/GSvjfem00.0-32.0The [facility] Comment on above:Performed By: #### PSASC #### [facility] [address] [address] [address] Travis SanchezCreatinine [Mass/Vol]0.74 mg/dLNormal0.70-1.30The [facility] TroyComment on above:Performed By: #### PSASC #### [facility] [address] [address] [address] Travis RiveroGFR-AF AUSTRALIAN>60Normal>=60The [facility] TroyComment on above:Performed By: #### PSASC #### [facility] [address] [place] [address] Dr. Travis RiveroGFR-NON AF AUSTRALIAN>60Normal>=60The [facility] Hospitalment on above:Performed By: #### PSASC #### [facility] [address] [address] [address] Travis SanchezGlucose [Mass/Vol]203 mg/dLCritically jazh10-813Ntz [facility] on above:Performed By: #### PSASC #### [facility] [address] [address] [address] Travis SanchezPotassium [Moles/Vol]3.8 mmol/LNormal3.5-5.1The [facility] Comment on above:Performed By: #### PSASC #### [facility] [address] [address] [address] Travis SanchezSodium [Moles/Vol]134 mmol/LCritically ies940-513Ied [facility] on above:Performed By: #### PSASC #### [facility] [address] [address] [address] Travis SanchezUrea nitrogen [Mass/Vol]9.0 mg/dLNormal7.0-18.0The [facility] Hospitalment on above:Performed By: #### PSASC #### [facility] [address], [place] [address] Dr. Travis SanchezUrea nitrogen/Creatinine [Mass ratio]12.2 mg/mgNoThe Jewish HospitalComment on above:Performed By: #### PSASC #### [facility] [address], [place] [address] Dr. Travis SanchezSED RATE WESTERGRENon 59-66-4534SPU RATE61 mm/hrCritically high <=15The [facility] TroyComment on above:Performed By: #### SEDR #### [facility] [address], [place] [address] Dr. Travis SanchezGlucose Glucometer ([facility]) [Mass/Vol]Ordered By: Dell Kim on 69-50-2732Dsdpcxn [Mass/Vol]144 mg/dLKettering Health PrebleComment on above:Random Glucose Reference Range is dependent on time and content of last meal. Glucose of more than 200 mg/dL in a nonstressed, ambulatory subject supports the diagnosis of Diabetes Mellitus.Glucose Poct Glucometerson 06-11-9503Loslycp [Mass/Vol]144 mg/dLNoMercy Health St. Charles Hospital Comment on above:Result Comment: Random Glucose Reference Range is dependent on time and content of last meal. Glucose of more than 200 mg/dL in a nonstressed, ambulatory subject supports the diagnosis of Diabetes Mellitus. PERFORMED BY: [facility] [address] [place] [address] PATHOLOGIST BODY FINISHER JOSSELYN ROSEN M.D.Performed By: #### GLULS #### Point of Care testing ,Glucose Poct Glucometerson 69-66-7421Rianozt [Mass/Vol]143 mg/dLNoMercy Health St. Charles HospitalComment on above:Result Comment: Random Glucose Reference Range is dependent on time and content of last meal. Glucose of more than 200 mg/dL in a nonstressed, ambulatory subject supports the diagnosis of Diabetes Mellitus. PERFORMED BY: [facility] [address] [place] [address] PATHOLOGIST BODY FINISHER JOSSELYN ROSEN M.D.Performed By: #### GLULS #### Point of Care testing ,Cholesterol [Mass/volume] in Serum or PlasmaOrdered By: Dell Kim on 88-51-6716Lfknztqxvyh [Mass/Vol]244 mg/tT875-143FuepeodqqKettering Health PrebleComment on above:Chol less than 200 mg/dl low riskChol 201-239 mg/dl borderline riskChol 240 mg/dl and greater high riskCholesterol in LDL Calc [Mass/Vol]Ordered By: Dell Kim on 81-24-2173Olzqhnokvbe in LDL [Mass/Vol] [facility] CenterComment on above:Test not performed Cholesterol in VLDL Calc [Mass/Vol]Ordered By: Dell Kim on 04-02-2022 Cholesterol in VLDL [Mass/Vol][facility] CenterComment on above:Test not performedGlucose Poct Glucometerson 96-56-2313Mtdpfvg9Vjd8: Cleaned MeterNoMercy Health St. Charles HospitalComment on above:Result Comment: PERFORMED BY: [place] [id number] PATHOLOGIST BODY FINISHER JOSSELYN ROSEN M.D.Performed By: #### GLULS ####Point of Care testing,Glucose [Mass/Vol]239 mg/dLMemorial HospitalComment on above: Result Comment: Random Glucose Reference Range is dependent on time and content of last meal. Glucose of more than 200 mg/dL in a nonstressed, ambulatory subject supports the diagnosis of Diabetes Mellitus.Performed By: #### GLULS ####Point of Care testing,LDL Cholesterol Measuredon 04-97-5699CLD Cholesterol Ofxlwudl755 mg/dLHigh0-100 [facility] PrebleComment on above:Result Comment: LDL ATP III CLASSIFICATION LDL less than 100 mg/dL Optimal LDL 100-129 mg/dL Near or above optimal LDL 130-159 mg/dL Borderline high LDL 160-189 mg/dL High LDL greater than 189 mg/dL Very highPerformed By: #### LIPID, [id number], TSH3 wRFLX, LDLD #### [address] [address] USALipid Panelon 20-45-1231Nnzmbtjaskr [Mass/Vol]244 mg/dL Gaqr976-848NvfusizdwKettering Health PrebleComment on above:Result Comment: Chol less than 200 mg/dl low risk Chol 201-239 mg/dl borderline risk Chol 240 mg/dl and greater high riskPerformed By: #### LIPID, [id number], TSH3 wRFLX, LDLD #### [facility] [address] [place] [address] USACholesterol in HDL [Mass/Vol]29 mg/cIKeysvh62-42UecmeypssKettering Health PrebleComment on above:Result Comment: HDL CHOL ATP-III CLASSIFICATION Cardiovascular Risk HDL > or equal to 60 mg/dL LOW HDL < 40 mg/dL HIGHPerformed By: #### LIPID, [id number], TSH3 wRFLX, LDLD #### [facility] [address] [id number] USACholesterol.total/Cholesterol in HDL [Mass ratio]8.4 {ratio}Normal<5.0[facility] PrebleComment on above:Performed By: #### LIPID, [id number], TSH3 wRFLX, LDLD #### [facility] [address] [place] [address] USALDL Cholesterol,CalculatedNot performedNormal0-100 [facility] PrebleComment on above:Performed By: #### LIPID, [id number], TSH3 wRFLX, LDLD #### [facility] [address] [id number] USATriglyceride w/Osvwjk382 mg/rWGtiv48-417JiutuhyyaKettering Health PrebleComment on above:Result Comment: TRIG ATP III CLASSIFICATION TRIG less than 150 mg/dL Normal TRIG 150-199 mg/dL Borderline high TRIG 200-500 mg/dL High TRIG greater than 500 mg/dL Very high Standard traceable to the Center for Disease Conrtrol and Prevention (CDC) test method. If the triglyceride result is greater than 400, LDLC and related calculations cannot be calculated and resulted.Performed By: #### LIPID, [id number], TSH3 wRFLX, LDLD #### [facility] [address] [place] [address] USAVLDL CHOLESTEROLNot performedNormPaulding County HospitalComment on above:Performed By: #### LIPID, [id number], TSH3 wRFLX, LDLD #### [facility] [address] [place] [address] USANo Panel InformationOrdered By: Dell Kim on 32-53-6846Omfeepp Glucose CommentGlu2: cleaned [facility]25-Hydroxy Vitamin D Total< 7.0 ng/rI66-586HubmtcsgeKettering Health PrebleComment on above:VITAMIN D STATUS 25(OH)VITAMIN D RANGE (ng/mL) Deficient <20 Insufficient 20 to <28Aemdulwvoa06 to 100Reference: Rosy MF,Byron MENDOZA, Rajinder GALDAMEZ, et al. Evaluation,treatment, and prevention of vitamin D deficiency; an Endocrine Society clinical practice guideline. JCEM. 2010; 96 (7):1911-30.Serum or plasma cholesterol in LDL measurement (mass/volume)Ordered By: Dell Kim on 19-67-9297Hophwpecvcr in LDL [Mass/Vol]122 mg/dL0-100 [facility] PrebleComment on above:LDL ATP III CLASSIFICATIONLDL less than 100 mg/dL OptimalLDL 100-129 mg/dL Near or above mjljkloPJK584-247 mg/dL Borderline highLDL 160-189 mg/dL HighLDL greater than 189 mg/dL Very high Serum or plasma high density lipoprotein (HDL) cholesterol measurementOrdered By: Dell Kim on 83-07-6919Ldpsluvztai in HDL [Mass/Vol]29 mg/dL29-71 [facility] PrebleComment on above:HDL CHOL ATP-III CLASSIFICATION Cardiovascular RiskHDL > or equal to 60 mg/dL LOWHDL < 40 mg/dL HIGHSerum or plasma total cholesterol/high density lipoprotein (HDL) cholesterol mass ratOrdered By: Dell Kim on 39-27-2658Eckiocxymxg.total/Cholesterol in HDL [Mass ratio]8.4 {ratio}<5.0[facility] PrebleTS DL <= 0.005 mIU/L QnOrdered By: Dell Kim on 91-91-2329XTB Qn1.06 m[IU]/L 0.45-5.33[facility] PrebleThyroid Stim Hormone w/Rflxon 86-35-8835Psrpqwu Stim Hormone w/Rflx1.06 u[iU]/mLNormal0.45-5.33[facility] PrebleComment on above:Performed By: #### LIPID, [id number], TSH3 wRFLX, LDLD #### [facility] [address] [place] [address] USATriglyceride [Mass/volume] in Serum or PlasmaOrdered By: Dell Kim on 26-60-4729Jagfyufeezzt [Mass/Vol]622 mg/cH83-782FxmykdgmaKettering Health PrebleComment on above:If the triglyceride result is greater than 400, LDLC and related calculations cannot be calculated and resulted.TRIG ATP III CLASSIFICATIONTRIG less than 150 mg/dL NormalTRIG 150-199 mg/dL BorderlinehighTRIG 200-500 mg/dL High TRIG greater than 500 mg/dL Very highStandard traceable to the Center for Disease Conrtrol and Prevention (CDC) test method.Vitamin D 25 Hydroxy Totalon 20-73-8553Abnmzwl D 25 Hydroxy Total< 7.9Cgz57-963KwzthcnbjKettering Health PrebleComment on above:Result Comment: VITAMIN D STATUS 25(OH)VITAMIN D RANGE (ng/mL) Deficient <20 Insufficient 20 to <30 Sufficient 30 to 100 Reference: Rosy MF,Byron NC, Rajinder GALDAMEZ, et al. Evaluation,treatment, and prevention of vitamin D deficiency; an Endocrine Society clinical practice guideline. JCEM. 2010; 96(7):1911-30. PERFORMED BY: [facility] [address] [place] [address] PATHOLOGIST BODY FINISHER JOSSELYN ROSEN M.D.Performed By: #### LIPID, [id number], TSH3 wRFLX, LDLD #### [facility] [address] [place] [address] USAACETAMINOPHENon 66-21-6916Wbkvwcblubrlg [Mass/Vol]ug/mL Critically low10.0-30.0[facility] Medical CenterComment on above:Performed By: #### CVDTBH #### [facility] [address] [place] [address] Dr. Travis Massey AUTO DIFFon 23-35-4671IAKN #0.1 103/ulNormal0.0-0.1The [facility] TroyComment on above:Performed By: #### CBC #### [facility] [address] [place] [address] Dr. Travis SanchezBasophils/100 WBC (Bld)0.8 %Normal0.2-2.0The [facility] Comment on above:Performed By: #### CBC #### [facility] [address] [place] [address] Dr. Travis Rdz #0.1 103/ulNormal0.0-0.7The [facility] TroyComment on above: Performed By: #### CBC #### [facility] [address] [place] [address] Dr. Travis Riveroosinophils/100 WBC (Bld)1.3 %Normal0.9-7.0The [facility] Comment on above:Performed By: #### CBC #### [facility] [address] [place] [address] Dr. Travis Riverorythrocyte distribution width (RBC) [Ratio]14.1 %Wombwt67.0-15.0 The [facility] TroyComment on above:Performed By: #### CBC #### [facility] [address] [place] [address] Dr. Travis SanchezHematocrit (Bld) [Volume fraction]47.9 %Joilko86.0-54.0The [facility] TroyComment on above:Performed By: #### CBC #### [facility] [address] [place] [address] Dr. Travis SanchezHemoglobin (Bld) [Mass/Vol]15.4 g/xNRmsidh26.0-18.0The [facility] TroyComment on above:Performed By: #### CBC #### [facility] [address] [place] [address] Dr. Travis Kaur #0.03 10e3/ulNormal0.00-0.03The [facility] TroyComment on above:Performed By: #### CBC #### [facility] [address] [place] [address] Dr. Travis Kaur %0.4 %Normal0.0-0.5The [facility] TroyComment on above: Performed By: #### CBC #### [facility] [address] [place] [address] Dr. Travis Marrero #1.7 103/ulNormal1.2-3.8The [facility] TroyComment on above:Performed By: #### CBC #### [facility] [address] [place] [address] Dr. Travis Stollhocytes/100 WBC (Bld)22.1 %Uyxqiq03.5-60.0The [facility] TroyComment on above:Performed By: #### CBC #### [facility] [address] [place] [address] Dr. Travis GuallpaUAL DIFF REQNONormalThe [facility] TroyComment on above: Performed By: #### CBC #### [facility] [address] [place] [address] Dr. Travis Coats (RBC) [Entitic mass]31.5 fzSpbfsz86.9-34.0The [facility] TroyComment on above:Performed By: #### CBC #### [facility] [address] [place] [address] Dr. Travis Glasgow (RBC) [Mass/Vol]32.2 g/tAMumfbu75.9-35.2The [facility] TroyComment on above:Performed By: #### CBC #### [facility] [address] [place] [address] Dr. Travis Thompson (RBC) [Entitic vol]98.0 fLCritically high80.0-94.0The [facility] TroyComment on above:Performed By: #### CBC #### [facility] [address] [place] [address] Dr. Travis Fox #0.5 103/ulNormal0.3-0.8The [facility] TroyComment on above:Performed By: #### CBC #### [facility] [address] [place] [address] Dr. Travis Smallsocytes/100 WBC (Bld)6.2 %Normal1.7-12.0The [facility] Comment on above:Performed By: #### CBC #### [facility] [address] [place] [address] Dr. Travis Raza #5.3 103/ulNormal1.4-6.5The [facility] TroyComment on above:Performed By: #### CBC #### [facility] [address] [place] [address] Dr. Travis Guidoutrophils/100 WBC (Bld)69.2 %Lkrwub57.0-75.0The [facility] TroyComment on above:Performed By: #### CBC #### [facility] [address] [place] [address] Dr. Travis Luilet mean volume (Bld) [Entitic vol]11.0 fLNormal9.5-13.5The [facility] TroyComment on above:Performed By: #### CBC #### [facility] [address] [place] [address] Dr. Travis SanchezPLT314 103/glZnparl979-896Oxd [facility] TroyComment on above: Performed By: #### CBC #### [facility] [address] [place] [address] Dr. Travis ChandlerC4.89 106/ulNormal4.70-6.10The [facility] TroyComment on above:Performed By: #### CBC #### [facility] [address] [place] [address] Dr. Travis SanchezWBC7.6 103/ulNormal4.0-11.0The [facility] TroyComment on above: Performed By: #### CBC #### [facility] [address] [place] [address] Dr. Travis Back URINEon 76-68-1936CZBDXBU URINECulture Observations: NO GROWTH.NormalPremier Health Upper Valley Medical CenterComment on above:Performed By: #### CVDTBH #### [facility] [address] [place] [address] Dr. Travis SanchezCovid-19 PCR ([facility])on 29-02-0401IQYD-CoV-2 (COVID-19) RNA ECTOR+probe Ql (Unsp spec)Not detectedNormalNOT DETECTEDThe [facility] Comment on above:Result Comment: When diagnostic testing [...] for this test is supported by the [place] of Health and Human Service's declaration that [...] longer be used).Performed By: #### CVDTBH #### [facility] [address] [place] [address] Dr. Travis SanchezDRUG SCREEN RAPID (URINE)on 73-10-1669LQJNmghugtoHhbzjhAYHAOMZG [facility] CenterComment on above:Performed By: #### CBC #### [facility] [address] [place] [address] Dr. Travis SanchezBARNegativeNormalNEGATIVEPremier Health Upper Valley Medical CenterComment on above: Performed By: #### CBC #### [facility] [address] [place] [address] Dr. Travis SanchezBUPNegativeNormalNEGATIVEPremier Health Upper Valley Medical CenterComment on above: Performed By: #### CBC #### [facility] [address] [place] [address] Dr. Travis CarlinZONegativeNormalNEGATIVEPremier Health Upper Valley Medical CenterComment on above: Performed By: #### CBC #### [facility] [address] [place] [address] Dr. Travis SanchezCOCNegativeNormalNEGATIVEPremier Health Upper Valley Medical CenterComselect specialty hospital on above: Performed By: #### CBC #### [facility] [address] [place] [address] Dr. Travis PulliamGalion HospitalComment on above: Result Comment: AMP (Amphetamine): 500ng/mL, BAR (Barbituates): 200 ng/mL, BZO (Benzodiazepines): 150 ng/mL, BUP (Buprenorphine): 10 ng/mL, JESUS (Cocaine): 150 ng/mL, mAMP (Methamphetamine): 500 ng/mL, MTD (Methadone): 200 ng/mL, OPI (Opiates): 100 ng/mL, OXY (Oxycodone): 100 ng/mL, PCP (Phencyclidine): 25 ng/mL, PPX (Propoxyphene): 300 ng/mL, THC (Cannabinoids): 50 ng/mL, TCA (Trycyclic Antidepressants): 300 ng/mLPerformed By: #### CBC #### [facility] [address] [place] [address] Dr. Travis SanchezDRUG CUT HEADERDRUG CLASS TEST SYSTEM CUT-OFF CONCENTRATIONS ARE FOLLOWS:NormalThe [facility] TroyComselect specialty hospital on above:Performed By: #### CBC #### [facility] [address] [place] [address] Dr. Travis SanchezmAMPNegativeNormalNEGATIVEPremier Health Upper Valley Medical CenterComselect specialty hospital on above: Performed By: #### CBC #### [facility] [address] [place] [address] Dr. Travis SanchezMTDNegativeNormalNEGATIVEPremier Health Upper Valley Medical CenterComselect specialty hospital on above: Performed By: #### CBC #### [facility] [address] [place] [address] Dr. Travis EscamillaINegativeNormalNEGATIVEBlanchard Valley Health System Bluffton Hospitalment on above: Performed By: #### CBC #### [facility] [address] [address] [address] Travis SanchezOXYNegativeNormalNEGATIVEMcCullough-Hyde Memorial Hospital on above: Performed By: #### CBC #### [facility] [address] [address] [address] Travis SanchezPCPNegativeNormalNEGATIVEPremier Health [facility] Medical CenterComselect specialty hospital on above: Performed By: #### CBC #### [facility] [address] [address] [address] Travis SanchezPPXNegativeNormalNEGATIVEMcCullough-Hyde Memorial Hospital on above: Performed By: #### CBC #### [facility] [address] [address] [address] Travis SanchezTCANegativeNormalNEGATIVEMcCullough-Hyde Memorial Hospital on above: Performed By: #### CBC #### [facility] [address] [address] [address] Travis SanchezTHCNegativeNormalNEGATIVEMcCullough-Hyde Memorial Hospital on above: Performed By: #### CBC #### [facility] [address] [address] [address] Travis Garcia URINE PROFILEon 62-88-0681Fsetraumm Ql (U)NegativeNormal NEGATIVEMcCullough-Hyde Memorial Hospital on above:Performed By: #### CBC #### [facility] [address] [place] [address] Dr. Travis Glez (U)CLEARNormalCLEARMcCullough-Hyde Memorial Hospital on above: Performed By: #### CBC #### [facility] [address] [address] [address] Travis Valiente (U)YELLOWNormalYELLOWMcCullough-Hyde Memorial Hospital on above: Performed By: #### CBC #### [facility] [address] [address] [address] Travis Nair micrscopic examination will be performed if indicated. NormalPremier Health Upper Valley Medical CenterComselect specialty hospital on above:Performed By: #### CBC #### [facility] [address] [address] [address] Travis SanchezGlucose Ql (U)>1000AbnormalNEGATIVEPremier Health Upper Valley Medical CenterComment on above:Performed By: #### CBC #### [facility] [address] [address] [address] Travis SanchezHemoglobin Ql (U)NegativeNormalNEGUniversity Hospitals Lake West Medical Center Comment on above:Performed By: #### CBC #### [facility] [address] [address] [address] Travis SanchezKetones Ql (U)TRACEAbnormalNEGATIVEPremier Health Upper Valley Medical CenterComment on above:Performed By: #### CBC #### [facility] [address] [place] [address] Dr. Travis SanchezLEUKOCYTESNegativeNormalNEGUniversity Hospitals Lake West Medical CenterComment on above:Performed By: #### CBC #### [facility] [address] [place] [address] Dr. Travis SanchezNitrite Ql (U)NegativeNormalNEGATIVEPremier Health Upper Valley Medical CenterComment on above:Performed By: #### CBC #### [facility] [address] [place] [address] Dr. Travis SanchezpH (U)5.5 [pH]Normal5-9[facility] Medical CenterComment on above: Performed By: #### CBC #### [facility] [address] [address] [address] Travis SanchezProtein (U) [Mass/Vol]100 mg/dLAbnormalNEGATIVE/ TRACEPremier Health Upper Valley Medical CenterComment on above:Performed By: #### CBC #### [facility] [address] [place] [address] Dr. Travis SanchezSPEC GRAVITY>=1.460Casvzihc7.005-<=1.025[facility] Comment on above:Performed By: #### CBC #### [facility] [address] [place] [address] Dr. Travis Preston MICRO INDINDICATEDNormalThBellevue HospitalComment on above: Performed By: #### CBC #### [facility] [address] [place] [address] Dr. Travis Lackeybilinogen Qn (U)0.2 {Chintan'U}/dLNormal0.2 - 1.0The [facility] TroyComment on above:Performed By: #### CBC #### [facility] [address] [place] [address] Dr. Travis Hemphill (BLD ALC)on 86-19-0286KUC NOTENOTE: 80 mg/dl is the legal limit for a blood alcohol levelNoThe Jewish HospitalComment on above: Performed By: #### ETH #### [facility] [address] [place] [address] Dr. Travis Ramananol [Mass/Vol]mg/dLNoThe Jewish HospitalComment on above:Performed By: #### ETH #### [facility] [address] [place] [address] Dr. Travis Scott 14(COMP METB)on 48-30-7573Ezezgyk [Mass/Vol]3.5 g/dLNormal 3.4-5.0The [facility] TroyComment on above:Performed By: #### CVDTBH #### [facility] [address] [place] [address] Dr. Travis SanchezAlbumin/Globulin [Mass ratio]0.9 {ratio}NormalThe [facility] TroyComment on above:Performed By: #### CVDTBH #### [facility] [address] [place] [address] Dr. Travis Fleming [Catalytic activity/Vol]98 U/QObhvus68-846Wlc [facility] TroyComment on above:Performed By: #### CVDTBH #### [facility] [address] [place] [address] Dr. Travis Pringle [Catalytic activity/Vol]36 U/INnqcqx28-08Fkc [facility] TroyComment on above:Performed By: #### CVDTBH #### [facility] [address] [place] [address] Dr. Yilan ChangAnion gap [Moles/Vol]16.8 mmol/LNormalPremier Health [facility] Comment on above:Performed By: #### CVDTBH #### [facility] [address] [place] [address] Dr. Travis SanchezAST [Catalytic activity/Vol]18 U/UImyehy66-55Qhb [facility] TroyComment on above:Performed By: #### CVDTBH #### [facility] [address] [place] [address] Dr. Travis SanchezBilirubin [Mass/Vol]0.3 mg/dLNormal0.2-1.0The [facility] Comment on above:Performed By: #### CVDTBH #### [facility] [address] [place] [address] Dr. Travis SanchezCalcium [Mass/Vol]9.1 mg/dLNormal8.5-10.1[facility] Comment on above:Performed By: #### CVDTBH #### [facility] [address] [place] [address] Dr. Travis SanchezChloride [Moles/Vol]101 mmol/QEuszwe94-807AazPremier Health Upper [facility] Medical Center Comment on above:Performed By: #### CVDTBH #### [facility] [address] [place] [address] Dr. Travis SanchezCO2 [Moles/Vol]22.1 mmol/ABvjrmf56.0-32.0[facility] Comment on above:Performed By: #### CVDTBH #### [facility] [address] [place] [address] Dr. Travis SanchezCreatinine [Mass/Vol]0.81 mg/dLNormal0.70-1.30The [facility] TroyComment on above:Performed By: #### CVDTBH #### [facility] [address] [place] [address] Dr. Travis RiveroGFR-AF AUSTRALIAN>60Normal>=60The [facility] TroyComment on above:Performed By: #### CVDTBH #### [facility] [address] [place] [address] Dr. Travis RiveroGFR-NON AF AUSTRALIAN>60Normal>=60The [facility] TroyComment on above:Performed By: #### CVDTBH #### [facility] [address] [place] [address] Dr. Travis SanchezGlobulin (S) [Mass/Vol]3.7 g/dLNormalThBellevue HospitalComment on above:Performed By: #### CVDTBH #### [facility] [address] [address] [address] Travis SanchezGlucose [Mass/Vol]277 mg/dLCritically mjxu63-054Pav [facility] TroyComment on above:Performed By: #### CVDTBH #### [facility] [address] [place] [address] Dr. Travis SanchezPotassium [Moles/Vol]3.9 mmol/LNormal3.5-5.1The [facility] Comment on above:Performed By: #### CVDTBH #### [facility] [address] [place] [address] Dr. Travis SanchezProtein [Mass/Vol]7.2 g/dLNormal6.4-8.2The [facility] Comment on above:Performed By: #### CVDTBH #### [facility] [address] [place] [address] Dr. Travis SanchezSodium [Moles/Vol]136 mmol/ZPtkgdv890-395Nei [facility] Comment on above:Performed By: #### CVDTBH #### [facility] [address] [place] [address] Dr. Travis SanchezUrea nitrogen [Mass/Vol]11.0 mg/dLNormal7.0-18.0The [facility] TroyComment on above:Performed By: #### CVDTBH #### [facility] [address] [place] [address] Dr. Travis SanchezUrea nitrogen/Creatinine [Mass ratio]13.6 mg/mgNormalThe [facility] TroyComment on above:Performed By: #### CVDTBH #### [facility] [address] [place] [address] Dr. Travis SanchezSALICYLATEon 62-23-6492GQLIATBIAH<2.8Normal<=19.9The [facility] on above:Performed By: #### CVDTBH #### [facility] [address] [place] [address] Dr. Travis Hurst MICROSCOPIC ONLYon 60-53-5622DJZNMTEQKSLNKMzofnesxMYRP SEEN [facility] CenterComselect specialty hospital on above:Performed By: #### CBC #### [facility] [address] [place] [address] Dr. Travis Newman identified Cx Nom (U)INDICATEDParkland Health CenteralThBellevue HospitalComselect specialty hospital on above:Performed By: #### CBC #### [facility] [address] [place] [address] Dr. Travis SanchezCASTSEENAbnormalNONE SEENMcCullough-Hyde Memorial Hospital on above: Performed By: #### CBC #### [facility] [address] [place] [address] Dr. Travis SanchezCrystals LM Nom (Urine sed)NONE SEENNormalNONE SEENMcCullough-Hyde Memorial Hospital on above:Performed By: #### CBC #### [facility] [address] [place] [address] Dr. Robles ChangEpithelial cells LM Ql (Urine sed)MODERATEAbnormalNONE SEEN /RARE The [facility] TroyComselect specialty hospital on above:Performed By: #### CBC #### [facility] [address] [place] [address] Dr. Travis JansenALINE CASTRARENormalThe [facility] TroyComselect specialty hospital on above: Performed By: #### CBC #### [facility] [address] [place] [address] Dr. Travis GarciaCOUSMODERATEAbnormalNONE SEENMcCullough-Hyde Memorial Hospital on above:Performed By: #### CBC #### [facility] [address] [place] [address] Dr. Travis SanchezYhalxVBX6-1Qvjpdj9-9Czx [facility] HospitalComment on above:Performed By: #### CBC #### [facility] [address] [address] [address] Travis SanchezWBC2-5AbnormalNONE SEENThe [facility] TroyComment on above: Performed By: #### CBC #### [facility] [address] [address] [address] Travis SanchezTESTOSTERONE, TOTALon 55-47-8889Wynagpmkmukr [Mass/Vol]240 ng/dL Critically rzr094-275Yfa [facility]tering Health TroyComment on above:Result Comment: Adult male reference interval is based on a population of healthy nonobese males (BMI <30) between 19 and 39 years old. Eve, et.al. JCEM 2017,102;7715-6054. PMID: [id number].Performed By: #### CBC #### [facility] [address] [place] [address] Dr. Travis SanchezGLYCOHEMOGLOBIN A1Con 20-57-7702GVX RECOMMENDATIONSEE BELOWNormal The [facility] TroyComselect specialty hospital on above:Result Comment: ADA RECOMMENDED LIMIT 4.0 - 6.0 ADA THERAPEUTIC TARGET < 7.0 ACTION SUGGESTED > 7.0Performed By: #### CBC #### [facility] [address] [address] [address] Travis SanchezGlucose [Mass/Vol]212 mg/dLNormalThe [facility] TroyComselect specialty hospital on above:Performed By: #### CBC #### [facility] [address] [place] [address] Dr. Travis SanchezHbA1c (Bld) [Mass fraction]9.0 %Critically high4.5-6.2The [facility] TroyComselect specialty hospital on above:Performed By: #### CBC #### [facility] [address] [place] [address] Dr. Travis SanchezProvider Letter FTMCon 84-37-0626Remxzoxp Letter [facility] POTEAUNormalUniversity Hospitals Ahuja Medical CenterCoding Summary.on 83-21-4662Xoavdk Summary.NormalUniversity Hospitals Ahuja Medical CenterCHEMISTRYOrdered By: SYSTEM SYSTEM on 51-53-1360Pvzrv gap [Moles/Vol]16 mmol/LNormal6 - 16 mEq/LFTMC RemisolChloride [Moles/Vol]97 mmol/L Lys130 - 111 mmol/LFTMC RemisolCO2 [Moles/Vol]24 mmol/MKnlpud22 - 31 mmol/LFTMC RemisolPotassium [Moles/Vol]4.2 mmol/LNormal3.5 - 5.3 mmol/LFTMC RemisolSodium [Moles/Vol]133 mmol/DVga003 - 145 mmol/LFTMC RemisolLyteson 68-19-8152Qybhv gap [Moles/Vol]16 mmol/LNormal6-16University Hospitals Ahuja Medical CenterComment on above: Performed By: #### [id number] ####[address] [address]Dwczisve [Moles/Vol]97 mmol/HSqk823-187EgxmbqUniversity Hospitals Ahuja Medical CenterComment on above:Performed By: #### [id number] ####[address] [address]QN5 [Moles/Vol]24 mmol/EJovjnj25-17IgrulpUniversity Hospitals Ahuja Medical CenterComment on above:Performed By: #### [id number] ####[address] [address]Imrmllhtn [Moles/Vol]4.2 mmol/LNormal3.5-5.3FBellevue Hospital Comment on above:Performed By: #### [id number] ####[address] [address]Izxlur [Moles/Vol]133 mmol/LLow 135-145University Hospitals Ahuja Medical CenterComment on above:Performed By: #### [id number] ####[address] [address] Patient Educationon 23-09-5865Mjavsng EducationNoSumma Health [facility] Campus Urology Office/Clinic Noteon 42-00-5232Gmipntt Office/Clinic NoteProtestant HospitalComment on above:Result Comment: Electronically Signed By: PALMER TORREZ, Patricio R\.br\Date and Time Signed: 02/16/22 15:06 EST\.br\Electronically Co-Signed By: Germaine Mccain\.br\Date and Time Co- Signed: 02/16/22 15:05 ESTAmbulatory Visit Summaryon 74-29-4419Orgduaenln Visit SummaryNoSumma Health Akron CampusPatient Educationon 74-13-6291Cjgtnqu EducationNoSumma Health Akron CampusReminderson 97-73-8138KfwjzlbunUabfkfThe Jewish HospitalComment on above:Other Comment: in errorUrology Office/Clinic Noteon 78-03-8129Pfsohdi Office/Clinic NoteProtestant HospitalComment on above:Result Comment: Electronically Signed By: Patricio CHAKRABORTY MD\.br\Date and Time Signed: 12/15/21 15:50 EDT\.br\Electronically Co-Signed By: Alannah Ragland MA\.br\Date and Time Co-Signed: 12/15/21 15:45 EDT INSULINon 87-07-0520Pycqfcc91.9 uIU/mLCritically high2.6-24.9The [facility] TroyComment on above:Performed By: #### SEDR #### [facility] [address] [place] [address] Dr. Travis Massey AUTO DIFFon 78-46-7894JIDH #0.0 103/ulNormal0.0-0.1[facility] Medical CenterComment on above:Performed By: #### CBC #### [facility] [address] [place] [address] Dr. Travis Mcelroysophils/100 WBC (Bld)0.5 %Normal0.2-2.0[facility] Comment on above:Performed By: #### CBC #### [facility] [address] [place] [address] Dr. Travis Rdz #0.1 103/ulNormal0.0-0.7The [facility] TroyComment on above: Performed By: #### CBC #### [facility] [address] [place] [address] Dr. Travis Riveroosinophils/100 WBC (Bld)1.8 %Normal0.9-7.0[facility] Comment on above:Performed By: #### CBC #### [facility] [address] [place] [address] Dr. Travis Riverorythrocyte distribution width (RBC) [Ratio]13.7 %Gfmgxr00.0-15.0 [facility] Medical CenterComment on above:Performed By: #### CBC #### [facility] [address] [place] [address] Dr. Travis SanchezHematocrit (Bld) [Volume fraction]40.9 %Critically low42.0-54.0 The [facility] TroyComment on above:Performed By: #### CBC #### [facility] [address] [place] [address] Dr. Travis SanchezHemoglobin (Bld) [Mass/Vol]13.7 g/dLCritically low14.0-18.0The [facility] TroyComment on above:Performed By: #### CBC #### [facility] [address] [place] [address] Dr. Travis Kaur #0.04 10e3/ulCritically high0.00-0.03The [facility] Comment on above:Performed By: #### CBC #### [facility] [address] [place] [address] Dr. Travis Kaur %0.7 %Critically high0.0-0.5The [facility] TroyComment on above:Performed By: #### CBC #### [facility] [address] [place] [address] Dr. Travis StollH #1.6 103/ulNormal1.2-3.8The [facility] TroyComment on above:Performed By: #### CBC #### [facility] [address] [place] [address] Dr. Travis Hernandezmphocytes/100 WBC (Bld)25.8 %Kqgprj67.5-60.0The [facility] TroyComment on above:Performed By: #### CBC #### [facility] [address] [place] [address] Dr. Travis Martinez DIFF REQNONormalThe [facility] TroyComment on above: Performed By: #### CBC #### [facility] [address] [place] [address] Dr. Travis Glasgow (RBC) [Entitic mass]30.4 evPjxoca69.9-34.0The [facility] TroyComment on above:Performed By: #### CBC #### [facility] [address] [place] [address] Dr. Travis Glasgow (RBC) [Mass/Vol]33.5 g/jUIpzsqu36.9-35.2The [facility] TroyComment on above:Performed By: #### CBC #### [facility] [address] [place] [address] Dr. Travis Glasgow (RBC) [Entitic vol]90.9 sFXfrehi38.0-94.0The [facility] TroyComment on above:Performed By: #### CBC #### [facility] [address] [place] [address] Dr. Travis Fox #0.4 103/ulNormal0.3-0.8The [facility] TroyComment on above:Performed By: #### CBC #### [facility] [address] [place] [address] Dr. Travis Smallsocytes/100 WBC (Bld)6.4 %Normal1.7-12.0The [facility] Comment on above:Performed By: #### CBC #### [facility] [address] [place] [address] Dr. Travis Raza #4.0 103/ulNormal1.4-6.5The [facility] TroyComment on above:Performed By: #### CBC #### [facility] [address] [place] [address] Dr. Travis Guidoutrophils/100 WBC (Bld)64.8 %Okxhth63.0-75.0The [facility] TroyComment on above:Performed By: #### CBC #### [facility] [address] [address] [address] Travis SanchezPlatelet mean volume (Bld) [Entitic vol]10.4 fLNormal9.5-13.5The [facility] on above:Performed By: #### CBC #### [facility] [address] [address] [address] Travis SanchezPLT271 103/qxUowcmq198-485Kxr [facility] on above: Performed By: #### CBC #### [facility] [address] [place] [address] Dr. Travis SanchezRBC4.50 106/ulCritically low4.70-6.10The [facility] TroyComselect specialty hospital on above:Performed By: #### CBC #### [facility] [address] [place] [address] Dr. Travis SanchezWBC6.1 103/ulNormal4.0-11.0The [facility] on above: Performed By: #### CBC #### [facility] [address] [place] [address] Dr. Travis SanchezDIRECT LDLon 98-08-1319Lappiwwmsaj in LDL [Mass/Vol]124 mg/dL NormalMcCullough-Hyde Memorial Hospital on above:Performed By: #### PSASC #### [facility] [address] [place] [address] Dr. Travis SanchezDLDL NORMALSEE BELOWTrinity Health System East CampusComselect specialty hospital on above: Result Comment: <100 mg/dl OPTIMAL 100 - 129 mg/dl NEAR OR ABOVE OPTIMAL 130 - 159 mg/dl BORDERLINE HIGH 160 - 189 mg/dl HIGH >190 mg/dl VERY HIGHPerformed By: #### PSASC #### [facility] [address] [place] [address] Dr. Travis SanchezGLYCOHEMOGLOBIN A1Con 49-87-5979IMW RECOMMENDATIONSEE BELOWPromedica Toledo HospitalComselect specialty hospital on above:Result Comment: ADA RECOMMENDED LIMIT 4.0 - 6.0 ADA THERAPEUTIC TARGET < 7.0 ACTION SUGGESTED > 7.0Performed By: #### SEDR #### [facility] [address] [address] [address] Travis SanchezGlucose [Mass/Vol]223 mg/dLTrinity Health System East CampusComment on above:Performed By: #### SEDR #### [facility] [address] [address] [address] Travis SanchezHbA1c (Bld) [Mass fraction]9.4 %Critically high4.5-6.2The [facility] TroyComment on above:Performed By: #### SEDR #### [facility] [address] [address] [address] Travis SanchezLIPID PROFILEon 31-16-3681LXEC-HDL RATIO NORMSUniversity Hospitals Conneaut Medical CenterComselect specialty hospital on above:Result Comment: 3.3 - 4.4 LOW RISK 4.4 - 7.1 AVERAGE RISK 7.1 - 11.0 MODERATE RISK >11.0 HIGH RISKPerformed By: #### CBC #### [facility] [address] [place] [address] Dr. Travis SanchezCholesterol [Mass/Vol]265 mg/dLCritically high<=200The [facility] TroyComselect specialty hospital on above:Performed By: #### CBC #### [facility] [address] [place] [address] Dr. Travis Varelaesterol in HDL [Mass/Vol]37 mg/dLCritically zhb81-04Dki [facility] on above:Performed By: #### CBC #### [facility] [address] [place] [address] Dr. Travis Varelaesterleroy.total/Cholesterol in HDL [Mass ratio]7.2 {ratio} NormalThe [facility] on above:Performed By: #### CBC #### [facility] [address] [place] [address] Dr. Travis SanchezHDL NORMAL> or = 60 mg/dl - LOW CARDIOVASCULAR RISK <40 mg/dl - HIGH CARDIOVASCULAR RISKTrinity Health System East CampusComment on above:Performed By: #### CBC #### [facility] [address] [place] [address] Dr. Travis SanchezTriglyceride [Mass/Vol]604 mg/dLCritically high<=150The Community Memorial Hospitalment on above:Performed By: #### CBC #### [facility] [address] [place] [address] Dr. Travis LopezLDL BIUH611.8 mg/dLNormalThe [facility] TroyComment on above: Performed By: #### CBC #### [facility] [address] [address] [address] Travis SanchezPROF 14(COMP METB)on 96-16-1369Pmgmxkk [Mass/Vol]3.8 g/dLNormal 3.4-5.0The [facility] TroyComment on above:Performed By: #### PSASC #### [facility] [address] [place] [address] Dr. Travis SanchezAlbumin/Globulin [Mass ratio]1.0 {ratio}NormalThe [facility] TroyComment on above:Performed By: #### PSASC #### [facility] [address] [place] [address] Dr. Travis Fleming [Catalytic activity/Vol]103 U/IUeixqo91-466Ibd [facility] TroyComment on above:Performed By: #### PSASC #### [facility] [address] [place] [address] Dr. Travis Pringle [Catalytic activity/Vol]41 U/NTjtmpz44-56Dzb [facility] TroyComment on above:Performed By: #### PSASC #### [facility] [address] [place] [address] Dr. Travis Soria gap [Moles/Vol]14.4 mmol/LNormalThe [facility] Comment on above:Performed By: #### PSASC #### [facility] [address] [place] [address] Dr. Travis Graff [Catalytic activity/Vol]17 U/ARafnoh12-59Hik [facility] TroyComment on above:Performed By: #### PSASC #### [facility] [address] [place] [address] Dr. Travis SanchezBilirubin [Mass/Vol]0.3 mg/dLNormal0.2-1.0The [facility] Comment on above:Performed By: #### PSASC #### [facility] [address] [address] [address] Travis SanchezCalcium [Mass/Vol]9.1 mg/dLNormal8.5-10.1The [facility] Comment on above:Performed By: #### PSASC #### [facility] [address] [address] [address] Travis SanchezChloride [Moles/Vol]99 mmol/ZCvaikj46-969Mal [facility] Comment on above:Performed By: #### PSASC #### [facility] [address] [place] [address] Dr. Travis SanchezCO2 [Moles/Vol]25.7 mmol/LStavsb97.0-32.0The [facility] Comment on above:Performed By: #### PSASC #### [facility] [address] [place] [address] Dr. Travis SanchezCreatinine [Mass/Vol]0.69 mg/dLCritically low0.70-1.30The [facility] TroyComment on above:Performed By: #### PSASC #### [facility] [address] [place] [address] Dr. Travis RiveroGFR-AF AUSTRALIAN>60Normal>=60The [facility] TroyComment on above:Performed By: #### PSASC #### [facility] [address] [place] [address] Dr. Travis RiveroGFR-NON AF AUSTRALIAN>60Normal>=60The [facility] TroyComment on above:Performed By: #### PSASC #### [facility] [address] [place] [address] Dr. Travis SanchezGlobulin (S) [Mass/Vol]3.9 g/dLNormalThe [facility] TroyComment on above:Performed By: #### PSASC #### [facility] [address] [place] [address] Dr. Travis SanchezGlucose [Mass/Vol]269 mg/dLCritically mmoi45-472Lml [facility] TroyComment on above:Performed By: #### PSASC #### [facility] [address] [place] [address] Dr. Travis SanchezPotassium [Moles/Vol]4.1 mmol/LNormal3.5-5.1The [facility] Comment on above:Performed By: #### PSASC #### [facility] [address] [place] [address] Dr. Travis SanchezProtein [Mass/Vol]7.7 g/dLNormal6.4-8.2The [facility] Comment on above:Performed By: #### PSASC #### [facility] [address] [place] [address] Dr. Travis SanchezSodium [Moles/Vol]135 mmol/LCritically vgd910-546Qjq [facility] TroyComment on above:Performed By: #### PSASC #### [facility] [address] [place] [address] Dr. Travis SanchezUrea nitrogen [Mass/Vol]11.0 mg/dLNormal7.0-18.0The [facility] TroyComment on above:Performed By: #### PSASC #### [facility] [address] [place] [address] Dr. Travis SanchezUrea nitrogen/Creatinine [Mass ratio]15.9 mg/mgNormalThe [facility] TroyComment on above:Performed By: #### PSASC #### [facility] [address] [place] [address] Dr. Travis SanchezURIC ACID SERUMon 90-03-1998Emheh [Mass/Vol]5.5 mg/dLNormal 3.5-7.2The [facility] TroyComment on above:Performed By: #### CBC #### [facility] [address] [place] [address] Dr. Travis SanchezCNOVon 97-82-6638LDOYOkjuuy Visit (UROLMN) ENIO RAYMOND ([id number]) 1990 M [facility] Date Time Provider Department 09/23/21 4:00 PM TAHIR DEJESUS During your visit today, we recorded the following information about you: Tahir Dejesus MD 10/06/2021 8:48 AM Signed PATIENT: Enio Raymond [id number] REFERRING MD: Self 09/23/2021 Chief Complaint Post op History of Present Illness Enio Raymond is a very pleasant 30 year old male who presents for post op check up Had recent vasectomy from [facility] urologist office with severe scrotal [...] for Dr. Tahir Dejesus by Goran Nuñez medical physics professor, on September 23, 2021 I agree with the Chief Complaint, ROS, and Past Histories independently gathered by the clinical instructional support assistant including scribe and or medical student and or MIGUEL and or resident or fellow and the remaining scribed note accurately describes my personal service to the patient. Tahir eDjesus MD, MS [facility] [place] [facility] Referring Provider: SELF [200] Allergies [...] 08/27/2021 Encounter Status:Closed by WEIGHT, TAHIR on 10/06/21NoSamaritan North Health CenterUS VENOUS DOPPLER R Fernie 98-84-8388IZ VENOUS DOPPLER R ARMEXAMINATION: US VENOUS DOPPLER [...] Electronically authenticated by: ELIUD IRIZARRY Date: 2021-09-01 13:01[facility] [id number] ID: [id number] Author: Angel Nelson MD Service: Urology Author Type: Resident Type: Consults Filed: 08/13/2021 4:55 PM Note Text: [facility] UROLOGY CONSULT [...] Angel Nelson MD Urology Resident PGY-2 Pager: [phone] For weekend or after hours issues [place] [phone] HPI: Enio Raymond is a 30 year [...] No lower extremity edema LABS: Pending IMAGING: PendingNormalCKnox Community HospitalGlucose Glucometer (dC) [Mass/Vol] Ordered By: Segun Cho on 28-03-9458Qwhufxq [Mass/Vol]397 mg/dLKettering Health PrebleComment on above:Random Glucose Reference Range is dependent on time and content of last meal. Glucose of more than 200 mg/dL in a nonstressed, ambulatory subject supports the diagnosis of Diabetes Mellitus. Glucose Poct Glucometerson 69-58-6208Jeoszma [Mass/Vol]397 mg/dLMemorial HospitalComment on above:Result Comment: Random Glucose Reference Range is dependent on time and content of last meal. Glucose of more than 200 mg/dL in a nonstressed, ambulatory subject supports the diagnosis of Diabetes Mellitus. PERFORMED BY: [place] [address] PATHOLOGIST BODY FINISHER JOSSELYN ROSEN M.D.Performed By: #### GLULS #### Point of Care testing , scrotumon 81-73-3290RG [facility] community hospitalotLancaster [place] [address] Ultrasound Report Signed Patient: Enio Raymond MR#: [id number] : 1990 Acct:[id number] Age/Sex: 30 / M ADM Date: 08/10/21 Loc: ER Room: Type: [facility] ER Attending Dr: Ordering Provider: Segun Cho [...] Estrella Chung M.D.08/10/2021 7:04 PM Dictation Location: [address] [address] Tech: Mariana Caban Transcribed By: PAVEL 08/10/211903 Dictated By: Estrella Chung MD 08/10/211899 Signed By: 08/10/[address] Charles HospitalUS scrotumon 61-15-9829WH [facility] [place] [address] Ultrasound Report Signed Patient: Enio Raymond MR#: [id number] : 1990 Acct:[id number] Age/Sex: 30 / M ADM Date: 07/31/21 [...] Gael Aguilar M.D.08/01/2021 9:01 AM Dictation Location: [address] [address] Tech: [facility] Transcribed By: PAVEL 08/01/21900 Dictated By: Gael Aguilar DO 08/01/21 0830 Signed By: 08/01/21 0901Memorial HospitalUrinalysison 08-01-2021 Appearance (U)ClearNormalClearKettering Health PrebleComment on above: Order Comment: Name Collection Type:: Clean-Voided MidstreamPerformed By: #### UA ####[facility] [address] [place] [address] [place] Bilirubin,UrineNegativeNormmdNegativeKettering Health PrebleComment on above:Order Comment: Name Collection Type:: Clean-Voided MidstreamPerformed By: #### UA ####[facility] [address] [place] [address] USAColor (U)YellowNormalYSCCI Hospital LimaComment on above: Order Comment: Name Collection Type:: Clean-Voided MidstreamPerformed By: #### UA ####[address] [address] [place] Glucose Ql (U)>=1000HighNormPaulding County HospitalComment on above: Order Comment: Name Collection Type:: Clean-Voided MidstreamPerformed By: #### UA ####[address] [address] [place] Ketones Ql (U)TraceHighNegKettering Health – Soin Medical CenterComselect specialty hospital on above:Order Comment: Name Collection Type:: Clean-Voided MidstreamPerformed By: #### UA ####[address] [address] USALeukocyte esterase Test strip Ql (U)NegativeNounc health southeasternNegKettering Health – Soin Medical CenterComment on above:Order Comment: Name Collection Type:: Clean- Voided MidstreamPerformed By: #### UA ####[address] [address] USANitrite,UrineNegativeNormalNegativeKettering Health PrebleComment on above:Order Comment: Name Collection Type:: Clean-Voided MidstreamPerformed By: #### UA ####[address] [address] USAOccult Blood,UrineNegativeNormal NegativeKettering Health PrebleComment on above:Order Comment: Name Collection Type:: Clean-Voided MidstreamResult Comment: PERFORMED BY: [facility] [address] [id number] PATHOLOGIST BODY FINISHER JOSSELYN ROSEN M.D.Performed By: #### UA ####[address] [address] USApH (U)6.0 [pH]Normal5.0-9.0[facility] PrebleComselect specialty hospital on above:Order Comment: Name Collection Type:: Clean- Voided MidstreamPerformed By: #### UA ####[address] [address] USAProtein,UrineNegativeNormalNegKettering Health – Soin Medical CenterComment on above:Order Comment: Name Collection Type:: Clean-Voided MidstreamPerformed By: #### UA ####[facility] [place] [address] USASpecificy Brewster,Urine1.038High 1.001-1.030[facility] Health PrebleComment on above:Order Comment: Name Collection Type:: Clean-Voided MidstreamPerformed By: #### UA ####[facility] [place] [address] USAUrobilinogen,Urine NormalNormalNormPaulding County HospitalComment on above:Order Comment: Name Collection Type:: Clean-Voided MidstreamPerformed By: #### UA ####[address] [place] [address] [place] Bilirubin Test strip Ql (U)Ordered By: lOiver Diehl on 20-49-4717Dzgndjrjj Ql (U)NegativeUniversity Hospitals St. John Medical CenterColor Auto (U)Ordered By: Oliver Diehl on 19-85-6665Yarrf (U)YellowYellowKettering Health PrebleKetones Auto test strip (U) [Mass/Vol]Ordered By: Oliver Diehl on 69-96-6160Cuvdlje (U) [Mass/Vol]TraceNegKettering Health – Soin Medical Center Nitrite Test strip Ql (U)Ordered By: Oliver Diehl on 09-33-3429Gqkeacq Ql (U) NegativeNegKettering Health – Soin Medical CenterProtein Auto test strip (U) [Mass/Vol]Ordered By: Oliver Diehl on 74-29-9941Klbwqem (U) [Mass/Vol]Negative NegativeMarymount Hospitalpecific gravity Auto test strip (U) [Rel density]Ordered By: Oliver Diehl on 80-92-7638Pfspwlrn gravity (U) [Rel density]1.0381.001-1.030[facility] PrebleUrine clarity by refractometry automatedOrdered By: Oliver Diehl on 56-66-8038Kpqbsaf Refractometry automated (U)ClearClearFOhioHealth Grady Memorial HospitalUrine glucose measurement by automated test strip (mass/volume)Ordered By: Oliver Diehl on 92-14-4838Rmwljap Auto test strip (U) [Mass/Vol]>=1000 mg/dLNormal [facility] PrebleUrine hemoglobin detection by automated test stripOrdered By: Oliver Diehl on 49-06-1726Nxkdhbrzpg Auto test strip Ql (U) NegativeNegKettering Health – Soin Medical CenterUrine leukocyte esterase detection by automated test stripOrdered By: Oliver Diehl on 07-31-2021 Leukocyte esterase Auto test strip Ql (U)NegativeNegKettering Health – Soin Medical CenterUrobilinogen Auto test strip (U) [Mass/Vol]Ordered By: Oliver Diehl on 37-09-7808Ymxgearfvyix (U) [Mass/Vol]Normal mg/dLNormPaulding County HospitalpH Auto test strip (U)Ordered By: Oliver Diehl on 80-22-0795eF (U)6.0 [pH]5.0-9.0Kettering Health PrebleLon 07-25-2021L Specimen: [id number] Received: 07/25/21 Status: NIRAV Jacinto Num: [id number] Spec Type: Surgical Subm Dr: Patricio Chakraborty MD Tissues: A VAS DEFERENS - sterilization (LT) B VAS DEFERENS - sterilization (RT) Procedures: JOSH Stain/2, Gross/Micro L2/2 Patient Age/Sex Location Account Attending Physician AgataEnio dean 30/M [place] [id number] Patricio Chakraborty MD SPEC NUM: [id number] RECD: 07/25/21 STATUS: NIRAV BENNETT NUM: [id number] RACHEL: 07/25/21- [facility] DR: Patricio Chakraborty MD ENTERED: 07/25/21 [facility] DR: [facility] SPEC TYPE: Surgical DEPT: [...] in one cassette labeled B1. (PRAVEEN) Specimen: [id number] Received: 07/25/21 Status: NIRAV Bennett Num: [id number] Spec Type: Surgical Subm Dr: Patricio Chakraborty MD Tissues: A VAS DEFERENS - sterilization (LT) B VAS DEFERENS - sterilization (RT) Procedures: JOSH Stain/2, Gross/Micro L2/2 Patient: Enio Raymond [id number] (Continued) Specimen: [id number] Received: 07/25/21 (Continued) Signed (signature on file) Josselyn Rosen MD 07/28/21 1753 Specimen: [id number] Received: 07/25/21 Status: NIRAV Bennett Num: [id number] Spec Type: Surgical Subm Dr: Patricio Chakraborty MD Tissues: A VAS DEFERENS - sterilization (LT) B VAS DEFERENS - sterilization (RT) Procedures: HE Stain/2, Gross/Micro L2/2 Patient: Enio Raymond [id number] (Continued) Specimen: [id number] Received: 07/25/21 (Continued) Microscopic Description A. One glass slide with H E stained material has been examined. The microscopic findings support the above pathologic diagnosis. B. One glass slide with H E stained material has been examined. The microscopic findings support the above pathologic diagnosis. [id number] Specimen: [id number] Received: 07/25/21 Status: NIRAV Bennett Num: [id number] Spec Type: Surgical Subm Dr: Patricio Chakraborty MD Tissues: A VAS DEFERENS - sterilization (LT) B VAS DEFERENS - sterilization (RT) Procedures: HE Stain/2, Gross/Micro L2/2 Patient: Enio Raymond [id number] (Continued) Signed (signature on file) Josselyn Rosen MD 07/28/21 [facility] Quick Testingon 27-92-1532Tcnmpe NegativeNoMetaboli Other 750-0856Orafa-51 PCRon 68-99-7709LNXM-CoV-2 (COVID-19) RNA ECTOR+probe Ql (Unsp spec)Not detectedNoMetaboli Other 051-6738Aomne-38 PCRNoMetaboli Other Vital Signs Date TimeVital SignValuePerforming BjgvrwkntRugcfqcl24-17-0751 11:43-0400Blood Pressure LocationPatrick CHAKRABORTY [facility]09-18-2023 11:43-0400Diastolic blood sylmxgep39 mm[Hg]Patricio CHAKRABORTY [facility]09-18-2023 11:43-0400Heart rate80 /minPatrick CHAKRABORTY [facility]09-18-2023 11:43-0400Respiratory rate16 /minPatrick CHAKRABORTY [facility]09-18-2023 11:43-0400Systolic blood mm[Hg]Patricio CHAKRABORTY [facility]05-08-2023 14:00-0400Body pzwjeucqxfh25.7 [degF]Ronobir YURIDIA [facility]05-08-2023 14:00-0400 Diastolic blood otgwqutj15 mm[Hg]Ronobir YURIDIA [facility]05-08-2023 14:00-0400Heart rate82 /minRonobir YURIDIA [facility]05-08-2023 14:00-0400 Respiratory rate17 /minRonobir YURIDIA [address] [place], [place] 7812405-08-2023 14:00-6688PkR8% (BldA) [Mass fraction]95 %Ronobir YURIDIA [facility]05-08-2023 14:00-0400 Systolic blood ortdatas168 mm[Hg]Ronobir YURIDIA [facility]05-08-2023 12:53-0400 Hourly RoundingRonobir YURIDIA [address] [place], [place] 7812405-08-2023 12:53-0400 Promise to ReturnRonobir YURIDIA [address] [place], [place] 7812405-08-2023 11:00-0400gluc 292 mg/dLRonobir YURIDIA [address] [place], [place] 7812405-08-2023 11:00-0400 Hourly RoundingRonobir YURIDIA [address] [place], [place] 7812405-08-2023 11:00-0400 Promise to ReturnRonobir YURIDIA [address] [place], [place] 7812405-08-2023 10:00-0400 Hourly RoundingRonobir YURIDIA [address] [place], [place] 1900905-08-2023 10:00-0400 Promise to ReturnRonobir YURIDIA [address] [place], [place] 1900905-08-2023 09:29-0400 Diastolic blood idzyljxu67 mm[Hg]Ronobir YURIDIA [address] [place], [place] 1900905-08-2023 09:29-0400 Systolic blood wgseridp367 mm[Hg]Ronobir YURIDIA [address] [place], [place] 1900905-08-2023 08:00-0400Heart rate77 /minRonobir YURIDIA [address] [place], [place] 7812405-08-2023 08:00-0400Mean blood yrilbtxx70 mm[Hg]Ronobir YURIDIA [address] [place], [place] 7812405-08-2023 08:00-0400 Respiratory rate18 /minRonobir YURIDIA [address] [place], [place] 7812405-08-2023 08:00-4566KzM8% (BldA) [Mass fraction]96 %Ronobir YURIDIA [address] [place], [place] 7812405-08-2023 07:00-0400gluc 238 mg/dLRonobir YURIDIA [address] [place], [place] 1900905-07-2023 20:24-0400Heart rate85 /minRonobir YURIDIA [address]05-07-2023 20:23-0400Mean blood ccanebxf59 mm[Hg]Ronobir YURIDIA [address] [place], [place] 1900905-07-2023 20:23-0400Body sopadvntjqs26.88 [degF]Ronobir YURIDIA [address] [place], [place] 1900905-07-2023 17:00-0400Mean blood ybdkmqps38 mm[Hg]Ronobir YURIDIA [address] [place], [place] 1900905-07-2023 17:00-0400Body wydiybrvyce56.52 [degF]Ronobir YURIDIA [address] [place], [place] 1900905-07-2023 16:20-0400Mean blood mm[Hg]Ronobir YURIDIA [address]05-07-2023 12:38-0400 Respiratory rate16 /minRonobir YURIDIA [address] [place], [place] 7812405-07-2023 00:44-0400Heart gmuh003 /minRonobir YURIDIA [address] [place], [place] 7812405-07-2023 00:00-0400Mean blood caggrwds19 mm[Hg]Ronobir YURIDIA [address] [place], [place] 7812405-06-2023 23:00-0400Mean blood odqbrcyn65 mm[Hg]Ronobir YURIDIA [address]05-06-2023 20:13-0400Heart plnd031 /minRonobir YURIDIA [facility]05-06-2023 20:10-0400gluc 317 mg/dLRonobir YURIDIA [facility]05-06-2023 20:10-0400gluc Ronobir YURIDIA [facility]04-06-2023 08:45-0400Blood Pressure LocationJENNIFER CHESTER [facility]04-06-2023 08:45-0400Diastolic blood xuqlxywx69 mm[Hg]MARIANA CHESTER [facility]04-06-2023 08:45-0400Heart rate88 /minJENNIFER CHESTER [facility]04-06-2023 08:45-0400Systolic blood vytoqpsj505 mm[Hg]MARIANA CHESTER [facility]01-28-2023 07:30-0500Body hozjizfzzsw58.4 [degF]PHYSICIAN [facility]01-28-2023 07:30-0500Diastolic blood pressure 111 mm[Hg]PHYSICIAN [facility]01-28-2023 07:30-0500Heart bsin353 /minPHYSICIAN [facility] 04-04-2022 07:30-4630WnW4% (BldA) [Mass fraction]97 %PHYSICIAN [facility]01-28-2023 07:30-0500Systolic blood ofewotkx616 mm[Hg]PHYSICIAN [facility]01-27-2023 20:25-0500 Respiratory rate16 /minPHYSICIAN [facility] 04-02-2022 16:30-0500Body urcydk737.04 cmPHYSICIAN [facility]01-25-2023 19:34-0500Body .61 kgPHYSICIAN NO [facility]10-10-2022 14:10-0400Blood Pressure Location Patricio CHAKRABORTY [facility]10-10-2022 14:10-0400Diastolic blood tmuqnqyk39 mm[Hg]Patricio CHAKRABORTY [facility]10-10-2022 14:10-0400Heart rate75 /minPatrick PlaceIQ [facility]10-10-2022 14:10-0400Respiratory rate16 /minPatrick CHAKRABORTY [facility]10-10-2022 14:10-0400Systolic blood mhatjggb306 mm[Hg]Patricio CHAKRABORTY [facility]08-01-2022 11:21-0400Blood Pressure LocationPaevelina CHAKRABORTY [facility] 08-01-2022 11:21-0400Diastolic blood jchjmami96 mm[Hg] Patricio CHAKRABORTY [facility] 08-01-2022 11:21-0400Heart wsew321 /minPatrick PlaceIQ [facility] 08-01-2022 11:21-0400Respiratory rate16 /minPatrick PlaceIQ [facility] 08-01-2022 11:21-0400Systolic blood ekdnvbsf077 mm[Hg] Patricio CHAKRABORTY [facility] Trisha [id number] 17:39-0400Body qatrbu585.5 cmLisa Aichholz Work Phone: [facility]06-05-2022 17:39-0400 Body mass index (BMI) [Ratio]51 kg/m2Lisa Aichholz Work Phone: [facility]06-05-2022 17:39-0400 Body uhlpihlsajj96.5 [degF]Jackelin Aichholz Work Phone: 1(902)098-[address] [place], [place] 2120406-05-2022 17:39-0400 Body athldb329 kgLisa Aichholz Work Phone: 1(626)095-[address] [place], [place] 2120406-05-2022 17:39-0400 Diastolic blood veitykyz17 mm[Hg]Jackelin Aichholz Work Phone: [facility]06-05-2022 17:39-0400 Heart znse284 /minLisa Aichholz Work Phone: [facility]06-05-2022 17:39-0400 Respiratory rate23 /minLisa Aichholz Work Phone: [facility]06-05-2022 17:39-0400 SaO2% (BldA) [Mass fraction]96 %Jackelin Aichholz Work Phone: [phone])900-[facility]06-05-2022 17:39-0400 Systolic blood ffjyjise577 mm[Hg]Jackelin Aichholz Work Phone: 1(055)334-[address] [place], [place] 2120405-26-2022 22:13-0400 Body aqhzuqvozvg64.5 [degF]Jackelin Aichholz Work Phone: 1(182)432-[address] [place], [place] 2120405-26-2022 22:13-0400 Diastolic blood wvexclnm521 mm[Hg]Jackelin Aichholz Work Phone: [facility]05-26-2022 22:13-0400 Heart mpjk900 /minLisa Aichholz Work Phone: [facility]05-26-2022 22:13-0400 Respiratory rate22 /minLisa Aichholz Work Phone: 1(670)865-[address] [place], [place] 2120405-26-2022 22:13-0400 SaO2% (BldA) [Mass fraction]95 %Jackelin Aichholz Work Phone: [facility]05-26-2022 22:13-0400 Systolic blood sfhegmsi967 mm[Hg]Jackelin Aichholz Work Phone: 1(312)812-[address] [place], [place] 2120405-26-2022 22:12-0400 Body sdnubl264.5 cmLisa Aichholz Work Phone: 1([phone])804-[address] [place], [place] 4698405-26-2022 22:12-0400 Body mass index (BMI) [Ratio]51.7 kg/m2Lisa Aichholz Work Phone: [facility]05-26-2022 22:12-0400 Body vixesf296 kgLisa Aichholz Work Phone: [facility]01-17-2022 12:30-0500 Body ilmpvy647.5 Jerson Billingsley Other [employer] Other 01-17-2022 12:30-0500Body payoxnorfvz07 [degF]Shruthi Billingsley Other [employer] Other 01-17-2022 12:30-6401BmM7% (BldA) [Mass fraction]98 % Shruthi Billingsley Other [employer] Other 11-16-2021 11:15-0500Body quwvlj380.5 cmAmbanusha Vanegas Other [employer] Other 11-16-2021 11:15-0500Body mass index (BMI) [Ratio] 49.99 kg/f8Uovneanusha Vanegas Other [employer] Other 11-16-2021 11:15-0500Body aatqbdffkyc76.1 [degF]Bailey Vanegas Other noMetaboli Other 11-16-2021 11:15-0500Body ulkoxo247.44 kgAmbanusha Vanegas Other [employer] Other 11-16-2021 11:15-2928ElR0% (BldA) [Mass fraction]94 % Bailey Vanegas Other noMetaboli Other Encounters Encounter DateEncounter TypeCare ProviderFacilityStart: 09-85-0132ayvphscfqm Patricio CHAKRABORTYFacility:EU evueStart: 03-29-2023 End: 65-62-5689Tuzaaep encounter procedurePatricio CHAKRABORTY [facility] start: 11-23-2022 End: 93-05-2732zhnkhgqifnDepswjy R WATERSFacility:EU BellevueStart: 11-23-2022 End: 08-20-2106Opokrri encounter procedurePatricio CHAKRABORTY [facility] start: 08-17-2022 End: 07-13-0946lpvirmtlgrOlxmcac R WATERSFacility:EU BellevueStart: 08-04-2022 ambulatoryPAMELA CRAMERFacility:E2Kfela: 50-28-6492jawvcrznqsNCIITX ARJUN Facility:H9Rgnvt: 07-11-2022 End: 17-48-0160ubwpepsiumPjtbzfy R MALLICKFacility:FTMCStart: 07-11-2022 End: 99-74-4367WbhiltjfjyrKsbjxsb R YURIDIA [facility] Start: 07-07-2022 End: 77-83-3518xcfftiszqrFBMCEC CRAMERFacility:Y5Auaxq: 06-25-2022 End: 70-92-4883ctyeyycsfiBLSJXI CRAMERFacility:K3Pcgli: 35-73-6332mlxolsfpcpCP GERTRUDIS HOY .Facility:R0Autfu: 06-18-2022 End: 47-68-0573ajmtodbqqaYX GERTRUDIS HOY .Facility:B4Ukngc: 06-12-2022 End: 94-78-5316bjcvbpdvojNFMZUB LALITA .Facility:Z5Tuqql: 06-11-2022 End: 64-56-0442rikofvitjmEDTBBFTK E PERRYFacility:EU [place]uskyStart: 06-11-2022 End: 19-40-8254Qfhdqgh encounter procedureJENNIFER E CHESTER [facility] Start: 05-23-2022 End: 27-05-0488mrlkscmwmbMWYOJ PARKERFacility:O2Rabfa: 19-76-0045xfqvqooeed SHRUTHI CRAMERFacility:I8Irzjx: 04-01-2022 End: 68-29-6824Dvojmrdeki and management of inpatientAdeyemi Julio [facility]: 04-01-2022 End: 64-97-2232Yydgwzrntu and management of inpatientPHYSICIAN NO [facility] Work Phone: Start: 04-01-2022 End: 11-39-5672wqqcdlspeeNZRDQCK D KATKOFacility:H1Bhafm: 03-17-2022 End: 62-16-1355vveaeaxaiuYV GERTRUDIS HOY .Facility:G0Jypok: 02-16-2022 End: 77-09-4955yyaujkpkkjGqyokdl R WATERSFacility:FTMCStart: 02-16-2022 End: 94-84-0186Hak Drop offPatricio CHAKRABORTY [facility] Start: 02-16-2022 End: 61-10-3901zqgepbzvvuYntdcbz R WATERSFacility:EU BellevueStart: 02-16-2022 End: 70-56-5942Ltqsxao encounter procedurePatricio CHAKRABORTY [facility] start: 01-06-2022 End: 96-81-1596jfnfdkmzpeVHLCWA H FAWWADFacility:L5Vwups: 12-15-2021 End: 58-70-6378kzimmrmeddDdwroyq R WATERSFacility:EU BellevueStart: 12-15-2021 End: 45-62-7686Xjoillh encounter procedurePatricio CHAKRABORTY [facility] start: 12-07-2021 End: 88-30-2005ztevwjzivhQITTBL CRAMERFacility:A3Dcfcn: 11-13-2021 End: 33-19-8855wqbjvftvevJYDQUM CRAMERFacility:U6Piqzc: 11-06-2021 End: 78-14-9460vpcvopdytyFSSYTT CRAMERFacility:X7Acggi: 10-28-2021 End: 97-95-8029Juqqcsdvyfxcn drug monitoringProbbin Gilbert MD Work Phone: Vascular MedicineComment on above:Multiple subsegmental pulmonary emboli without acute cor pulmonale (HCC) (Primary Dx); Anticoagulation management encounterStart: 10-28-2021 End: 01-76-6841Eoekmzeymbey consultation with Halina Gilbert MD Work Phone: ccf [facility] MAINStart: 84-75-2911wuyxsunruw MATERIALS ASSISTANT JACKELIN Laracility:C1Wqvda: 10-06-2021 End: 15-07-3208Btpeblm encounter procedurePatricio CHAKRABORTY [facility] start: 10-06-2021 End: 22-92-1959mmgjboklebRODYXC H FAWWADFacility:R7Xxkak: 09-23-2021 End: 57-47-2553Nrnhsce encounter procedureChrufus Dejesus MD Work Phone: UrologyComment on above:Vasectomy status (Primary Dx) Start: 09-23-2021 End: 26-31-7631cdpdjivuwaWctxojzdxbn Weight MD Work Phone: UrologyStart: 27-52-8234Bebkckcjt encounterAlana Resendizashford Urological &Comment on above:Returning Patient's CallStart: 09-05-2021 End: 30-14-2402lmhotqyajlLZA LISA AICHHOLZFacility:C1Mtnoq: 09-02-2021 End: 38-83-0961hgdzndtdocYLBZFB H FAWWADFacility:W8Qndvj: 09-01-2021 End: 20-23-0761msoyodlsnfLJL JACKELIN Laracility:A4Crqxs: 08-13-2021 End: 60-29-2006Gvuaild encounter procedurePatricio CHAKRABORTY [facility] Start: 08-10-2021 End: 57-97-9731Urveppuee department patient visitPHYSICIAN NO FAMILY Facility[facility]: 08-10-2021 End: 37-46-0968Wwrrgjzny department patient visitLisa Hale Work Phone: [facility]-Emergency RoomStart: 08-01-2021 End: 94-12-4276Zvplftyuc department patient visitPHYSICIAN NO FAMILY Facility:[facility]: 07-31-2021 End: 66-51-6439Hgmwfighb department patient visitLisa Hale Work Phone: [facility]-Emergency RoomStart: 07-25-2021 End: 27-29-5370bwyuggbdyhWpckewz WatersFacility:[facility]: 07-25-2021 End: 10-32-8328Lxjgdaaq ReferredLisa Hale Work Phone: [facility]-Lab Main CampusStart: 03-24-2021 End: 85-51-7754wxowidvxbzMyrsiz Dymond Other [employer] Other Start: 63-37-8810Uptnfi outpatient visit 15 minutes Shruthi DymondFPG Urgent Care ClydeStart: 01-23-2021 End: 19-34-7197dtprjvhzvrLiuby Ginty Other [employer] Other Start: 87-48-4199Zsfiyyqvo encounterAmber GintyFPG Urgent Care ClydeStart: 01-21-2021 End: 64-80-9113bhaxvtmeonJulsc Ginty Other [employer] Other Start: 03-25-6703Zbpauw outpatient visit 15 minutes Bailey GintyFPG [facility] Care [facility]berto Procedures DateProcedureProcedure DetailPerforming ClinicianStart: 83-75-4878IZX screening MATERIALS ASSISTANT JACKELIN GEOFFREYComment on above:Performed By: #### PSASC #### [facility] [address] [place] [address] Dr. Travis Turk: 08-13-2021H/O: vasectomyPatrick Sobeida CHAKRABORTY Start: 40-53-8354Bqvsfaqkxq of scrotum and contentsLisa Geoffrey Work Phone: Start: 11-50-4368Ocifolreyg of scrotum and contents Jackelin Geoffrey Work Phone: Start: 17-69-9863QpuygqqyuIzomysv WATERS H/O: vasectomyStatus post vasectomy( Confirmed )Patricio CHAKRABORTY H/O: vasectomyVasectomy statusChristopher Weight Work Phone: knee joint operationNewsBreak Tooth and periodontium operationNewsBreak Plan of Treatment DateCare ActivityDetailAuthorStart: 56-80-2635XerkciepuK[facility]tering Health [facility] Start: 73-80-4108Ghbywucc to Social ServicesK[facility]tering Health [facility] Start: 81-45-3303Qvftcjex admissionMarymount Hospitaltart: 01-54-4336Tlftbqpoc vaccinationINFLUENZA (#1)[facility] Ohiotart: 07-31-2021 Echography of scrotum and contentsUS scrotumKettering Health [facility] Start: 12-40-0788QLBFFLTLZ B (1 of 3 - Risk 3-dose series)HEPATITIS B (1 of 3 - Risk 3-dose series)[facility]: 18-41-6645Uctdb microalbumin profile DTAP,TDAP,TD (1 - Tdap)[facility]: 54-68-3570BEBIOJ PCP TEAM CHRONIC DISEASE VISITANNUAL PCP TEAM CHRONIC DISEASE VISITKing's Daughters Medical Center Ohiotart: 48-61-6663Llgnmvenm B surface antibody levelLDL CHOLESTEROLMercy Health [facility] Start: 20-10-8597EAURCEULW C SCREENINGHEPATITIS C SCREENINGMercy Health [facility] Start: 63-49-9488BAH SCREENINGHIV SCREENINGKing's Daughters [facility] Center Ohiotart: comp foot exam completedDIABETIC FOOT EXAMKing's Daughters Medical Center Ohiotart: 1998 Hepatitis B screeningURINE ALBUMIN:CREATININE RATIOKing's Daughters Medical Center Ohiotart: 04-40-6529Aacqtboby C antibody, confirmatory testDILATED RETINAL EXAMKing's Daughters Medical Center Ohiotart: 81-72-3701DEZOIKZVKIJY (1 - PCV)PNEUMOCOCCAL (1 - PCV)[facility]: 70-69-7043Kdrideftns A1c/Hemoglobin.total in WdbguCNR6PMmujlmshw ClinicStart: 57-71-8237EWVBF-19 VACCINE (#1)COVID-19 VACCINE (#1)[facility]: 19-35-6196ADQNXQHWZ B (1 of 3 - 3-dose series)HEPATITIS B (1 of 3 - 3-dose series)[facility] CenterPatient EducationAden[facility] Work Phone: Patient referralAdena [facility] Work Phone: URINALYSIS, REFLEX MICROSCOPICURINALYSIS, REFLEX MICROSCOPIC Lab Routine Screening for genitourinary condition Ordered: [address] [place] [address] Work Phone: comment on above:[facility] Immunizations Immunization DateImmunizationNotesCare OilbkfhyIotgdyqs72-09-8317sdnvthe toxoid, reduced diphtheria toxoid, and acellular pertussis vaccine, adsorbedJENNIFER CHESTER [facility]05-14-2002measles, mumps and rubella virus vaccineJENNIFER CHESTER [facility]08-23-1995DTaP, unspecified formulationJENNIFER CHESTER [facility]04-19-1991Hib, unspecified formulationJENNIFER CHESTER [facility]01-11-1991Hib, unspecified formulationJENNIFER CHESTER [facility]01-11-1991measles, mumps and rubella virus vaccineJEAYDEE BRIGGS [facility] Payers DatePayer CategoryPayerPolicy ID2020Medicaid[place] MEDICAID [facility] MEDICAID [id number] 2019-Present [phone] [address] [place] [address] [id number] [place] [facility] MEDICAID [id number] 2019-Present [phone] [address] [place] [address] Medicaid [id number] 2.840.1.549291.3.57[id number] 2.16840.1.873562.3.57[id number] 2.16.840.1.675204.3.57[id number] 2.16.840.1.446238.3.57[id number] 2.16.840.1.164900.3.57[id number] 2.16.840.1.914443.3.57[id number] 2.16.840.1.844591.3.57[id number] 2.16.840.1.362372.3.57[id number] 2.16.840.1.983388.3.57[id number] 2.16.840.1.949453.3.57[id number] 2.16.840.1.427143.3.57[id number] 2.16840.1.074318.3.579.2.38242-57-9424Akvvshu0630937 2.16840.1.065061.3.579.[id number] 2.840.1.664990.3.579.2.75007-84-8037Sblczto9584173 2.840.1.370159.3.57[id number] 2.840.1.440315.3.57[id number] 2.840.1.841511.3.57[id number] 2.16840.1.507305.3.57[id number] 2.840.1.066822.3.57[id number] 2.16840.1.390006.3.57[id number] 2.16840.1.247671.3.57[id number] 2.16840.1.133334.3.579.[id number] 2.16840.1.380995.3.57[id number] 2..0.1.148333.3.579.[id number] 2..840.1.539641.3.579.[id number] 2.0.1.950291.3.579.[id number] 2.0.1.132566.3.57[id number] 2.0.1.835543.3.57[id number] 2.0.1.366845.3.579.2.727 [id number]-oco [id number]-[id number] / [id number] 2.0.1.371037.19Unknown [id number] 2.0.1.47[id number] 2..1.6[id number] 2.0.1.115114.3.579.2.531 [id number] 2.0.1.320479.3.579.2.531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Industrial [employer] [id number] Social History DateTypeDetailFacilityStart: 46-03-2315Oupssnm smoking status NHISEx-smoker (finding)[facility] End: 68-87-7118Vsfpdif of tobacco useNort Who What Wear Other Start: 51-67-7078Kzi [facility] End: 00-71-0437Hnuwijp smoking statusLight tobacco smoker (finding)[facility] Tobacco smoking statusSmokeless tobacco user within last 30 daysExec[facility] [email or web address] Start: 07-31-2021 End: 88-41-7792Iiuipsm smoking status NHISSmoker (finding)[facility]: 61-04-4103Ftlocst smoking status NHISSmokes tobacco daily [facility] CenterHistory of tobacco useCigarette SmokerKing's Daughters Medical Center Ohiotart: 13-82-6133Jfjtyqcztl smoked current (pack per day) - Reported0.5Clevelformerly [facility] Start: 08-18-2021 End: 37-74-3792Sfenlhe intakeLifetime non-drinker (finding)[facility] Start: 32-38-7423Thahwqk SDOH Alcohol Ezuqsoyid5Sarrmbprd ClinicStart: 27-47-4756Pds Assigned At BirthNot on fileKing's Daughters Medical Center Ohiotart: 08-18-2021 End: 98-78-0148Drdbjqme to SARS-CoV-2 (event)Not sureKing's Daughters Medical Center Ohiotart: 10-07-2021 End: 80-49-3503Irfbwdkk to SARS-CoV-2 (event)Unable to assessMercy Health [facility] Center Start: 97-29-8568Ztlftvw smoking statusNever smoked tobacco (finding)[facility] Goals DatePatient GoalDesired Activity/State Functional Status ChqiKtuwlyvojbLcjefhZxkvuswa65-07-4245Ljzdnrinim StatusN/AExec[facility]05-07-2023Functional StatusNoMem[facility]05-06-2023Functional StatusMem[facility]04-06-2023 Functional StatusN/A[facility] 66-91-9769Mqqayawxrf statusPatient at [facility] Work Phone: [phone]epado StatusN/AExec[facility]-10-2022Functional StatusN/A[facility]08-01-2022Functional StatusN/A [facility] Mental Status InqbWyrypovwgoBpqkpqByjboass34-47-6342Chnpgnqyq functionCognitive Status Patient at [facility] Work Phone: Clinical Notes 01-21-2021 to 11-23-2022 Note Date & [id number] Hospital Discharge instructions Patient Education 11/23/2022 12:58:10 [...] therapy. Follow these instructions at home: Take xrbd-tny-mwmapla and prescription medicines only as told by [...] provider. Document Revised: 10/24/2020 Document Reviewed: 10/24/2020 [employer] Patient Education 2022 [employer]. 11/23/2022 12:46:35 Overactive Bladder, Adult Overactive Bladder, [...] your health care provider. General instructions Take bfze-aci-ecsmyix and prescription medicines only as told by [...] provider. Document Revised: 11/11/2020 Document Reviewed: 11/11/2020 [employer] Patient Education 2022 [employer]. Follow Up Care 08/17/2022 11:49:19 With:PALMER TORREZ, Patricio Vidales, URL Address: [facility] [address], [place] [address]- [phone] When: Unknown Comments:sched brain MRI [facility] 05-08-2023 Evaluation + Plan noteExtracted from:Title: [...] 5 days [address] [place] [address]- [phone] Business (1) Additional Instructions: Call for followup appointment Hypotension, Tfcj-pm-Nyqz Urinary Tract Infection, Adult Extracted from:Title:Admission H [...] deep vein thrombosis (DVT) prophylaxis (Z79.899: Other extermination inspector (current) drug therapy) SCD, enoxaparin Orders: acetaminophen, [...] Compression Device C-Reactive Protein Cardiac Monitoring COVID-19 ([facility]) Diabetic/Calorie Control Diet Ferritin Hypoglycemia Protocol Responsive [...] Saturation PT & PTT Rapid COVID Antigen ([facility]) Saline Lock Insert Troponin 0 Hr. Troponin 3 Hr. Troponin 6 Hr. Troponin 9 Hr. UA With Cult Reflex Urine Culture Future Appointments Appointment Date:08/17/2022 10:30:00 AM Scheduled Provider:Patricio CHAKRABORTY MD Location:[facility] Appointment Type:URO Office Visit Future Scheduled Tests Laboratory* Semen Analysis Post Vasectomy 10/06/21 * Semen Analysis Post Vasectomy 10/06/21 [facility]05-08-2023 NoteFisher [facility] CenterComment on above:Result Comment: Electronically Signed By: RENALDO TORREZ, Parvin\.br\Date and Time Signed: 07/13/22 10:19 [id number] Hospital Discharge instructions Patient Education 07/13/2022 10:17:27 Hypotension, Dfcb-qb-Wcke Hypotension As your heart beats, it forces [...] up quickly after you eat. Medicines Take kxds-ftv-fxzacbi and prescription medicines only as told by [...] provider. Document Revised: 10/13/2021 Document Reviewed: 10/13/2021 [employer] Patient Education 2022 [employer]. 07/13/2022 10:17:23 Urinary Tract Infection, Adult Urinary [...] Treatment for this condition includes: Antibiotic medicine. Jetm-cje-ntbrhsy medicines to treat discomfort. Drinking enough water [...] Follow these instructions at home: Medicines Take aqpp-ang-sgikyfb and prescription medicines only as told by [...] provider. Document Revised: 10/04/2020 Document Reviewed: 10/04/2020 [employer] Patient Education 2022 [employer]. Follow Up Care 07/11/2022 20:06:03 With:SHRUTHI DÍAZ Address: [address] [place] [address] [phone] Business (1) When:07/17/2022 15:15:00 Comments:Call for followup appointment [facility]05-07-2023 [facility] CenterComment on above:Result Comment: Electronically Signed By: Wilian SHI DO\Date and Time Signed: 07/12/22 03:16 [id number] NoteCONSULTATION CONSULTATION DATE: 06/25/2022 TO: Shruthi Díaz [...] I have given him 10 pills of Peck to trial and to have available for [...] our patients to inform us about any iyzr-qnh-fjeytel medications or herbal remedies/nutritional supplements/alternative remedies. 2. [...] treatment options with their primary care provider.[facility] [id number] Hospital Discharge instructions Patient Education 06/11/2022 08:51:48 [...] fried and sweet foods. General instructions Take tqtr-zat-odzwisf and prescription medicines only as told by [...] 12/19/2009 Document Revised: 06/15/2019 Document Reviewed: 03/10/2018 [employer] Patient Education 2020 [employer]. 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 Patient was continued on his home [...] MD 04/04/221125 Signed By: <Electronically signed by Dell Kim MD> 04/04/22 1132 [facility] Work Phone: 1(748) 519-855401-27-2023 Progress note Author Dell Kim [facility] April 03, 2022 1:47pmNote Date/TimeJanuary 2022 1:47pm[place] [address] Psychiatry Progress Note Signed Patient: Enio Raymond MR#: [id number] : 1990 Acct:[id number] Age/Sex: 31 / M Adm Date: 3 Loc: Room: [address] [place] [address] Type : ADM IN Attending Dr: Dell Kmi MD Copies to: ~ Date of Service: [...] <Electronically signed by Dell Kim MD> 04/03/221346 [facility] Work Phone: 1(720) 863-176901-26-2023 History and physical note Author Dell Kim [facility] April 02, 2022 1:07pmNote Date/TimeJanuary 2022 1:03pmFort [place] [address] Psychiatry H&P Signed Patient: Enio Raymond MR#: [id number] : 1990 Acct:[id number] Age/Sex: 31 / M Adm Date: 3 Loc: Room: [address] [place] [address] Type: ADM IN Attending Dr: Dell Kim [...] issues, reported sobriety Living: With family 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 General instructions Take gisr-dvs-jttecdy and prescription medicines only as told by [...] 12/19/2009 Document Revised: 06/15/2019 Document Reviewed: 03/10/2018 [employer] Patient Education 2020 [employer]. Follow Up Care 12/15/2021 15:51:03 With:Patricio CHAKRABORTY MD, DENIS Address: [facility] [address] [place] [address]- When: Unknown [facility] 10-10-2022 Hospital Discharge instructions Patient Education [...] nerve stimulation). For women, using a medical insurance coding specialist to prevent urine leaks. This is a [...] right after experiencing incontinence. General instructions Take qpqo-sat-libqqxn and prescription medicines only as told by [...] 04/01/2005 Document Revised: 03/04/2018 Document Reviewed: 06/03/2017 [employer] Patient Education 2020 [employer]. Follow Up Care 10/06/2021 12:21:17 With:PALMER TORREZ, DENIS Valdez Address: [facility] [address] [place] [address]- [phone] When:02/23/2022 [facility] 08-25-2022 NoteHNO ID: [id number] Author: Viktor Gilbert MD Service: ? Author [...] Spent: 21-30 minutes Viktor Gilbert MD, MS, [facility] Department of Cardiovascular Medicine [address], [place] [address] Appointments: (Cardiology); (Vascular Medicine) This note was dictated using a voice recognition software. Please excuse any inadvertent typographical/grammatical/syntax errors that may have escaped the final proofread. Please don't hesitate to contact my office for any clarification.[facility]08-25-2022 History of Present illness Narrative* Viktor [...] Spent: 21-30 minutes Viktor Gilbert MD, MS, [facility] Department of Cardiovascular Medicine [address], [place] [address] Appointments: (Cardiology); (Vascular Medicine) This note was dictated using a voice recognition software. Please excuse any inadvertent typographical/grammatical/syntax errors that may have escaped the final proofread. Please don't hesitate to contact my office for any clarification. documented in this encounter[facility]08-[facility]-2022 Hospital Discharge instructions Patient Education [...] help you get to a healthyweight. Take mfad-lvj-mqoslnz and prescription medicines only as told by [...] 04/14/2006 Document Revised: 10/10/2018 Document Reviewed: 10/10/2018 [employer] Patient Education [employer] Follow Up Care 10/01/2021 14:34:21 With:PALMER TORREZ, Patricio Vidales, URL Address: [facility] [address], [place] [address]- [phone] When:Within 2 Month(s) [facility] 07-19-2022 NoteHNO ID: [id number] Author: Tahir Dejesus MD Service: ? Author Type: Physician Type: Progress Notes Filed: 10/06/2021 8:48 AM Note Text: PATIENT: Enio Raymond [id number] REFERRING MD: Self 09/23/2021 Chief Complaint Post op History of Present Illness Enio Raymond is a very pleasant 30 year old male who presents for post op check up Had recent vasectomy from [facility] urologist office with severe scrotal [...] Dr. Tahir Dejesus by Goran Nuñez, medical physics professor, on September 23, 2021 I agree with the Chief Complaint, ROS, and Past Histories independently gathered by the clinical instructional support assistant including scribe and or medical student and or MIGUEL and or resident or fellow and the remaining scribed note accurately describes my personal service to the patient. Tahir Dejesus MD, MS [facility] [place] [facility]07-19-2022 History of Present illness Narrative* Tahir Dejesus MD - 09/23/2021 4:00 PM EDT PATIENT: Enio Raymond [id number] REFERRING MD: Self 09/23/2021 Chief Complaint Post op History of Present Illness Enio Raymond is a very pleasant 30 year old male who presents for post op check up Had recent vasectomy from [facility] urologist office with severe scrotal [...] Dr. Tahir Dejesus by Goran Nuñez, medical physics professor, on September 23, 2021 I agree with the Chief Complaint, ROS, and Past Histories independently gathered by the clinical instructional support assistant including scribe and or medical student and or MIGUEL and or resident or fellow and the remaining scribed note accurately describes my personal service to the patient. Tahir Dejesus MD, MS [facility] [place] [facility] documented in this encounterMercy Health [facility]07-19-2022 NotePatient Outreach (UROLMN) ENIO RAYMOND ([id number]) 1990 M T Date Time Provider Department 09/23/21 TAHIR DEJESUS During your visit today, we recorded the following information about you: Allergies As of Date: 09/23/2021 (No Known Allergies) Date Reviewed: 09/23/2021 Reviewed by: Rell Gallegos MA - Fully Assessed Visit Diagnosis:Screening for genitourinary condition [Z13.89] Order(s):URINALYSIS, REFLEX MICROSCOPIC [[id number]] Order #: [id number]. #:[id number] Prescriptions as of 09/26/2021 - warfarin (COUMADIN) [...] Encounter Status:Closed by KATALINA BILLINGS on 09/26/21[facility] 09-10-2021 Miscellaneous Notes* Telephone Encounter - [...] answered. Alana Castle RN documented in this encounterMercy Health [facility] Center06-21-2022 History of Past illness Narrative* ProblemNoted DateResolved DateOther chest pain Last Assessment & Plan: 08/26 c/o RCW and R shoulder pain radiating to R upper arm, denies SOB. ECG and troponin series unremarkable. Resolved with IV fentanyl. 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 S/p 750cc albumin with good response PLAN: -Fluid bolus prn -Consider pressors if stops responding to fluid Mfvigzkdkyrwktkrugti55/09/202206/ Last Assessment & Plan: Trigs 1444, propofol stopped. Precedex added PLAN: -- recheck and add statin if indicated Obstructive sleep apnea/ Last Assessment & Plan: Non compliant with CPAP at home PLAN: - extubate to BiPAP today documented as of this encounter (statuses as of 09/10/2021) [facility]06-[facility] History of Past illness Narrative* ProblemNoted Date Resolved DateOther chest pain/ Last Assessment & Plan: 08/26 c/o RCW and R shoulder pain radiating to R upper arm, denies SOB. ECG and troponin series unremarkable. Resolved with IV fentanyl. 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 S/p 750cc albumin with good response PLAN: -Fluid bolus prn -Consider pressors if stops responding to fluid Juqiwuoevgeymojkoqoj84/09/202206/ Last Assessment & Plan: Trigs 1444, propofol stopped. Precedex added PLAN: -- recheck and add statin if indicated Obstructive sleep apnea Last Assessment & Plan: Non compliant with CPAP at home PLAN: - extubate to BiPAP today documented as of this encounter (statuses as of 09/26/2021) [facility]06-[facility] History of Past illness Narrative* ProblemNoted Date Resolved DateOther chest pain/ Last Assessment & Plan: 08/26 c/o RCW and R shoulder pain radiating to R upper arm, denies SOB. ECG and troponin series unremarkable. Resolved with IV fentanyl. 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 S/p 750cc albumin with good response PLAN: -Fluid bolus prn -Consider pressors if stops responding to fluid Fyfakuuuxvxllijmglyr55/09/202206 Last Assessment & Plan: Trigs 1444, propofol stopped. Precedex added PLAN: -- recheck and add statin if indicated Obstructive sleep apnea Last Assessment & Plan: Non compliant with CPAP at home PLAN: - extubate to BiPAP today documented as of this encounter (statuses as of 10/06/2021) [facility]06-[facility] History of Past illness Narrative* ProblemNoted Date Resolved DateOther chest pain Last Assessment & Plan: 08/26 c/o RCW and R shoulder pain radiating to R upper arm, denies SOB. ECG and troponin series unremarkable. Resolved with IV fentanyl. 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 S/p 750cc albumin with good response PLAN: -Fluid bolus prn -Consider pressors if stops responding to fluid Xcicscjceoqhartskuxn86/09/202206/13/2022 Last Assessment & Plan: Trigs 1444, propofol stopped. Precedex added PLAN: -- recheck and add statin if indicated Obstructive sleep apnea Last Assessment & Plan: Non compliant with CPAP at home PLAN: - extubate to BiPAP today documented as of this encounter (statuses as of 10/30/2021) [facility]06-[facility] Hospital Discharge instructions Patient Education [...] an athletic support cup for comfort. Take pqtf-gdy-ojjghkk and prescription medicines only as told by [...] 03/27/2011 Document Revised: 02/04/2018 Document Reviewed: 05/10/2017 [employer] Patient Education 2020 [employer]. Follow Up Care 08/12/2021 16:38:44 With:PALMER TORREZ, Patricio Vidales, URL Address: [facility] [address], [place] [address]- When: Unknown [facility] 01-17-2022 Evaluation note* Encounter Date Diagnosis Assessment [...] care instructions given in writting by [facility] Care At Home document. [employer] Other 11-16-2021 Evaluation note* Encounter Date Diagnosis [...] care instructions given in writting by [facility] Care At Home document [employer] Other Evaluation + Plan note No data available for this section [facility] Evaluation + Plan note Future Appointments Appointment Date:12/15/2021 01:15:00 PM Scheduled Provider:Patricio CHAKRABORTY MD Location:[facility] Appointment Type:URO Office Visit Diagnostic Tests Pending * Electrolyte Panel 10/06/21 Future Scheduled Tests Laboratory* Semen Analysis Post Vasectomy 10/06/21 * Semen Analysis Post Vasectomy 10/06/21 [facility] evaluation + Plan note Future Appointments Appointment Date:02/16/2022 01:15:00 PM Scheduled Provider:Patricio CHAKRABORTY MD Location:[facility] Appointment Type:URO Office Visit Diagnostic Tests Pending * Electrolyte Panel 12/15/21 Future Scheduled Tests Laboratory* Semen Analysis Post Vasectomy 10/06/21 * Semen Analysis Post Vasectomy 10/06/21 [facility] evaluation + Plan note Future Appointments Appointment Date:08/17/2022 10:30:00 AM Scheduled Provider:Patricio CHAKRABORTY MD Location:[facility] Appointment Type:URO Office Visit Future Scheduled Tests Laboratory* Semen Analysis Post Vasectomy 10/06/21 * Semen Analysis Post Vasectomy 10/06/21 [facility] evaluation + Plan note Future Appointments Appointment Date:03/29/2023 11:15:00 AM Scheduled Provider:Patricio CHAKRABORTY MD Location:[facility] Appointment Type:URO Office Visit Diagnostic Tests Pending * Testosterone Level Total 11/23/22 * Prolactin Level 11/23/22 [facility] evaluation noteNo assessment information available [facility] [employer] Work Phone: Evaluation noteNo InformationNort Who What Wear Other Evaluation note* Diagnosis Screening for genitourinary condition Screening for other and unspecified genitourinary condition [facility]* Diagnosis Vasectomy status- Primary documented in this encounter [facility] note* Diagnosis Multiple subsegmental pulmonary emboli without acute cor pulmonale (HCC)- Primary Anticoagulation management encounter Encounter for therapeutic drug monitoring documented in this encounter [facility] note* Diagnosis Onset Date Resolution Status Depression acute [facility] [employer] Work Phone: Hiscbae general Narrative - Reported* Type Description Date Medical History fx rt great toe Medical Historydiabetes mallitusMedical Historymood disorderSurgical History arthroscopic knee surgery [employer] Other Hospital Discharge instructions No data available for this section [facility] Additional Instructions Regular Diet No Activity RestrictionsAdena [facility] [employer] Work Phone: Progress note No data available for this section [facility] Chief Complaint and Reason for Visit [...] Personnel Name: SHRUTHI DÍAZ CNP Address: Address: [address] [place] [address] Team Status: Inactive Member Role Status Dates [...] and content) DATE CREATED AUTHOR 08/14/2021 [facility] DATE CREATED AUTHOR AUTHOR'S ORGANIZ ATION 04/04/2022 [facility] DATE CREATED AUTHOR AUTHOR'S ORGANIZ ATION 07/17/2022 [facility] DATE CREATED AUTHOR AUTHOR'S ORGANIZ ATION 09/22/2022 [facility] DATE CREATED AUTHOR AUTHOR'S ORGANIZ ATION 12/11/2022 [facility] REASON FOR VISIT (unrecogniz ed section and [...] or prosecute any alcohol or drug abuse patient.[facility] CenterIn the event this information is protected by the Federal Confidentiality of Alcohol and Drug Abuse Patient Records regulations: The Federal rules restrict any use of the information to criminally investigate or prosecute any alcohol or drug abuse patient.[facility] CenterIn the event this information is protected by the Federal Confidentiality of Alcohol and Drug Abuse Patient Records regulations: The Federal rules restrict any use of the information to criminally investigate or prosecute any alcohol or drug abuse patient.[facility] CenterIn the event this information is protected by the Federal Confidentiality of Alcohol and Drug Abuse Patient Records regulations: The Federal rules restrict any use of the information to criminally investigate or prosecute any alcohol or drug abuse patient.[facility] FOR RECORDS PERTAINING TO PATIENTS [...] BE BASED ON THE PRIMARY CLINICAL RECORDS. [facility] [employer] [facility]. provides no warranty or guarantee of the accuracy or completeness of information in this document.
--- OUTSIDE RECORDS SUMMARY | 2025-02-04 21:01 | XMS_ITS | Clinical Summary ---
Author Organization [facility] Address [address] [place] [address] Care Team Providers Care Card Writer Hand Name Role Phone Unavailable Primary Care Provider [...] 1 & 1/2 TABLETS BY MOUTH DAILY XGGVBDZO61/28/2022ctive Active Problems ProblemNoted DateDiagnosed DateNicotine use disorder, F17.ulmonary jzzohkei84/17/2022 Assessment & Plan (08/28/2021 2:40 PM EDT): [...] -- f/u blood and resp cultures Electrolyte iyovifrpc51/16/2022 Assessment & Plan (08/28/2021 4:58 PM EDT): [...] Assessment: hypophosphatemia PLAN: -- replaced Mild protein-calorie uthcckcqqnca04/15/2022 Assessment & Plan (08/28/2021 4:55 PM EDT): [...] percocet and prn fentanyl Acute postoperative respiratory gvaeqmleuduyf05/10/2022 Assessment & Plan (08/28/2021 5:00 PM EDT): [...] -F/u urology recs regarding WTE postop Golden mrvxqkii29/09/2022 Assessment & Plan (08/28/2021 4:57 PM EDT): [...] and sedated until after this isdone Depressive utjttnat95/09/2022 Assessment & Plan (08/28/2021 4:59 PM EDT): [...] and (suspected) exposure to covid-1902Acute pancreatitis 1Diabetes emyhyaaz87/04/2021 Assessment & Plan (08/28/2021 4:59 PM EDT): [...] meds when able Personal history of nicotine qktlvsrayn75/04/2021 Assessment & Plan (08/28/2021 4:53 PM EDT): [...] ppd unknown duration PLAN: Encourage cessation Morbid edbodwz8710/09/2020 Assessment & Plan (08/26/2021 1:37 PM EDT): [...] enzymes unremarkable - Resolved with IV fentanyl Pvycfoznuut03/10/202206/ Assessment & Plan (08/15/2021 12:40 PM EDT): Assessment: 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 S/p 750cc albumin with good response PLAN: -Fluid bolus prn -Consider pressors if stops responding to fluid Vmmguvaacnwflufoknxu44/09/202206/ Assessment & Plan (08/25/2021 1:10 PM EDT): [...] RecordedNational Score (1-100), lower number is lower mbcj530404/05/2022State Score (1-10), lower number is lower risk Not on file04/05/2022ata from: https://www.neighborhoodatlas.[facility].edu/. Last address used for lvufmfylsya063 [facility]04/05/2022Sex and Gender InformationValueDate RecordedSex Assigned at BirthNot on fileLegal KogKoqr4408/13/2021 3:07 PM EDT Gender IdentityNot on fileSexual OrientationNot on file Last Filed Vital Signs Vital SignReadingTime TakenCommentsBlood Ajdlgojn112/68008/29/2021 7:49 PM EDT Yyfbs66874/24/2022 7:49 PM HKDKsxczdpmeia09.9 ??C (98.5 ??F)08/29/2021 7:49 PM EDTRespiratory Glbe546508/29/2021 7:49 PM EDTOxygen Jhmyocscwc90%08/29/2021 7:49 PM EDTInhaled Oxygen Concentration--Gzuurb480.5 kg (384 lb 11.2 oz)08/29/2021 5:54 PM KCSPnwkwi746.5 cm (6' 3 )08/13/2021 3:39 PM EDTBody Mass Index48.08 08/13/2021 3:39 PM EDT Plan of Treatment Health MaintenanceDue DateLast DoneCommentsAnxiety Flzvnomlc05/08/2007Depression Uqnchjioe39/08/2007HIV Nfllewvoj94/08/2007Hepatitis C Uqkeeqrqk26/08/2007 Hepatitis B Vaccine (1 of 3 - 19+ 3-dose series)12/14/2007HPV Vaccine (1 - 3- dose SCDM series)12/14/2015DTaP,Tdap,Td Vaccine (7 - Td or Tdap)03/16/2016 03/16/2006, 10/28/1994, 06/24/1990, Additional history existsLipid Screening 4Covid-19 Vaccine (1 - 2024- season)2024Influenza Vaccine (#1) 2024 Insurance
--- OUTSIDE RECORDS SUMMARY | 2025-02-04 21:02 | XMS_ITS | Patient Health Record ---
Author Organization [facility] [place] Address [address] [place] [address] Care Team Providers Care Package Dye Stand Loader Name Role Phone Shruthi Carrero Primary Care Provider Danielle Jatinder Rock [phone] Allergies No Known Allergies Results Component Value Reference Range Notes GLYCOHEMOGLOBIN A1C Reviewed date:07/06/2024 03:47:42 PM Interpretation: Performing Lab: Notes/Report: [facility] , Glycohemoglobin A1C 6.0 4.5-6.2 % ADA RECOMMENDED LIMIT 4.0 - 6.0 ADA THERAPEUTIC TARGET < 7.0 ACTION SUGGESTED > 7.0 Estimated Average Glucose 126 Performing Lab:see noteML - [facility] LBTestosterone Reviewed date:07/13/2024 11:56:24 AM Interpretation: Performing Lab: Notes/Report: [facility] ,Tyxhbeglisch261164-748 ng/dL Adult male reference interval is based on a population of healthy nonobese males (BMI <30) between 19 and 39 years old. Eve et.al. JCEM 2017,102;6833-8390. PMID: 70023546. Performed at: - [facility] [id number] Metal Expediter: Evan Sierra PhD, Phone: [phone] Performing Lab:see lucinda - [facility] LBGLYCOHEMOGLOBIN A1C Reviewed date:01/31/2025 09:23:48 AM Interpretation: Performing Lab: Notes/Report: [facility] ,Glycohemoglobin A1C5.74.5-6.2 % ADA RECOMMENDED LIMIT 4.0 - 6.0 ADA THERAPEUTIC TARGET < 7.0 ACTION SUGGESTED > 7.0 Estimated Average Ltycqaw022Otjgrvbpml Lab:see noteML - [facility] LB Testosterone Reviewed date:01/31/2025 09:23:48 AM Interpretation: Performing Lab: Notes/Report: [facility] ,Pmmryhlutwop644284-919 ng/dL Adult male reference interval is based on a population of healthy nonobese males (BMI <30) between 19 and 39 years old. Eve et.al. JCEM 2017,102;7195-2480. PMID: 55964805. Performed at: - [address] [id number] Metal Expediter: Evan Sierra PhD, Phone: [phone] Performing Lab:see note - [facility] LBACETAMINOPHEN (Not yet reviewed by provider) Interpretation: Performing Lab: Notes/Report: [facility] ,Acetaminophen<2.010.0-30.0 ug/mLPerforming Lab:see noteML - [facility] LBCBC AUTO DIFF (Not yet reviewed by provider) Interpretation: Performing Lab: Notes/Report: [facility] ,White Blood Count5.64.0-11.0 10 3/uLRed Blood Count5.044.70-6.10 10 6/uL Wwmadjouob36.714.0-18.0 g/mBGhhguxinym70.542.0-54.0 %Mean Corpuscular Llqpkc33.2 80.0-94.0 fLMean Corpuscular Kpelnuvydl66.125.9-34.0 pgMean Corpuscular HGB Conc 35.229.9-35.2 g/dLRed Cell Distribution Width12.411.0-15.0 %Platelet Cwnbh437 150-450 10 3/uLMean Platelet Mdksug50.29.5-13.5 fLNeutrophils Percent Auto57.4 43.0-75.0 %Lymphocytes Percent Auto32.620.5-60.0 %Monocytes Percent Auto8.01.7- 12.0 %Eosinophils Percent Auto0.70.9-7.0 %Basophils Percent Auto0.90.2-2.0 % Immature Granulocytes Pct Auto0.40.0-0.5 %Neutrophils Absolute Auto3.21.4-6.5 10 3/uLLymphocytes Absolute Auto1.81.2-3.8 10 3/uLMonocytes Absolute Auto0.50.3-0.8 10 3/uLEosinophils Absolute Auto0.00.0-0.7 10 3/uLBasophils Absolute Auto0.10.0- 0.1 10 3/uLImmature Granulocytes Abs Auto0.020.00-0.03 10 3/uLPerforming Lab:see noteML - [facility] LBPROF 14(COMP METB) (Not yet reviewed by provider) Interpretation: Performing Lab: Notes/Report: [facility] ,Aumfxk126713-567 mmol/LPotassium3.83.5-5.1 mmol/TBezjcruc04340-167 mmol/LCarbon Qhphlen37.221.0-32.0 mmol/LAnion Gap18.3Odrhaml91625-605 mg/dLBlood Urea Ydybhgqy43.07.0-18.0 mg/dLCreatinine0.880.70-1.30 mg/dLEstimated GFR ( Tami>60>=60 mL/min/1.73m 2Estimated GFR (Non- Melanie>60>=60 mL/min/1.73m 2BUN Creatinine Ratio13.7Efslssn0.68.5-10.1 mg/dLBilirubin Total0.80.2-1.0 mg/dL Aspartate Amino Tmmwbndpbju6093-54 U/LAlanine Pjulfatgryanxxun8977-22 U/L Alkaline Hclqqsbvxgy04012-954 U/LTotal Protein7.76.4-8.2 g/dLAlbumin Level4.3 3.4-5.0 g/dLGlobulin3.4Albumin Globulin Ratio1.3Performing Lab:see noteML - [facility] LBSalicylate (Not yet reviewed by provider) Interpretation: Performing Lab: Notes/Report: [facility] ,Salicylate<2.8<=19.9 mg/dLPerforming Lab:see note - [facility] LB Ethanol (Not yet reviewed by provider) Interpretation: Performing Lab: Notes/Report: [facility] ,Ethanol<3NOTE: 80 mg/dl is the legal limit for a blood alcohol levelPerforming Lab:see noteML - [facility] LBECG 12 lead (Not yet reviewed by provider) Interpretation: Performing Lab: Notes/Report: Source Facility: [facility]-[address] [place] [address] [place] [address] Electrocardiograph Report Draft Patient: ENIO RAYMOND MR#: [id number] : 1990 Acct:[id number] Age/Sex: 34 / M ADM Date: Loc: ER Attending Dr: Ordering Physician: Junior Mcclellan Date of Service: 02/04/25 Procedure(s): ECG 12 lead Accession Number(s): [id number] cc: [facility] Test Date: 2025-02-04 Pat Name: ENIO RAYMOND Department: Room: - Gender: Male 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: : 1990 Requested By: [id number] Order Number: [id number] Reading MD: Measurements Intervals Wallace Rate: 96 P: 30 MA: 138 QRS: 75 QRSD: 96 T: 47 QT: 334 QTc: 387 Interpretive Statements 1100 Sinus rhythm 9110 normal ECG No previous ECG available for comparison Dictated By: Silvia Johns Signed By: DD/ 15 TD/TT: Folding Machine Tender:LIPID PROFILE Reviewed date:10/09/2024 09:37:21 AM Interpretation: Performing Lab: Notes/Report: [facility] ,Qilslhgaqmipy31<=150 mg/qFUsypqlbyxdo593<=200 mg/dLHDL Ggavdnjhmym0862-71 mg/dL > or =60 mg/dl - LOW CARDIOVASCULAR RISK <40 mg/dl - HIGH CARDIOVASCULAR RISK LDL Cholesterol Evenplwluc176.4 <100 mg/dl OPTIMAL 100-129 mg/dl NEAR OR ABOVE OPTIMAL 130-159 mg/dl BORDERLINE HIGH 160-189 mg/dl HIGH >190 mg/dl VERY HIGH VLDL DFDPGPTKNBY23.6Chol HDL Ratio3.7 3.3 - 4.4 LOW RISK 4.4 - 7.1 AVERAGE RISK 7.1 - 11.0 MODERATE RISK >11.0 HIGH RISK Performing Lab:see noteML - [facility] LBGLYCOHEMOGLOBIN A1C Reviewed date:10/09/2024 09:37:21 AM Interpretation: Performing Lab: Notes/Report: [facility] ,Glycohemoglobin A1C5.84.5-6.2 % ADA RECOMMENDED LIMIT 4.0 - 6.0 ADA THERAPEUTIC TARGET < 7.0 ACTION SUGGESTED > 7.0 Estimated Average Reyusai350Gbavzbidog Lab:see noteML - [facility] LB Testosterone Reviewed date:10/09/2024 09:36:32 AM Interpretation: Performing Lab: Notes/Report: [facility] ,Pxmyybodrhys273296-870 ng/dL Adult male reference interval is based on a population of healthy nonobese males (BMI <30) between 19 and 39 years old. Travison, et.al. JCEM 2017,102;9220-5323. PMID: 23701478. Performed at: [address] [id number] Metal Expediter: Evan Sierra PhD, Phone: [phone] Performing Lab:see note - [facility] LBTestosterone Reviewed date:04/03/2024 04:51:02 PM Interpretation: Performing Lab: Notes/Report: [facility] ,Cpjsfcwkogoh884937-749 ng/dL Adult male reference interval is based on a population of healthy nonobese males (BMI <30) between 19 and 39 years old. Travison, et.al. EM 2017,102;2770-9515. PMID: 52242689. Performed at: [address] [id number] Metal Expediter: Evan Sierra PhD, Phone: [phone] Performing Lab:see [facility] LBGLYCOHEMOGLOBIN A1C Reviewed date:04/03/2024 04:51:02 PM Interpretation: Performing Lab: Notes/Report: [facility] ,Glycohemoglobin A1C6.24.5-6.2 % ADA RECOMMENDED LIMIT 4.0 - 6.0 ADA THERAPEUTIC TARGET < 7.0 ACTION SUGGESTED > 7.0 Estimated Average Ycucnxg085Atzjwukorx Lab:see noteML - [facility] LB Reason For Referral Reason hearing testing Diagnosis 1 Change in hearing (H 91.90) Referral Organization [facility] Referring Provider First Name Shruthi Referring Provider Last Name Alise Referring Provider Speciality [facility] dorene Referred Provider Ml Walsh Referred Provider Specialty Otolaryngolo gy Referral Priority Routine Diagnosis 1 Hearing loss (H91.90 ) Referral Organization [facility] Referring Provider First Name Shruthi Referring Provider Last Name Alise Referring Provider Speciality [facility] dorene Referred Provider Specialty Otolaryngolo gy Referral Priority Routine Medications Medication SIG (Take, Route, Frequency, Duration) Notes Start Date End Date Status Sure Comfort Pen [place] 31G X 5 MM Use 1 pen [...] morning Orally Once a day; Duration: 30 5ActiveImipramine Pamoate 100 MG2 capsules Oral at HS; [...] alcohol in the p ast year? No Zrgudm2XfbvgzxcnnxiupJwukkxlsKTIKV-S (Standard) Question Answer Notes Did you have a drink containing alcohol in the p ast year? No Niqfnt4BaygntopmyoehdZfaxxgfk Problems Problem Type SNOMED Code ICD Code Onset Dates Problem Status W/U Status Risk Notes Problem Information temporarily unavailable Testi cular hypofunction (E29.1) ActiveconfirmedProblemInformation temporarily unavailableOverweight (E66.3) ActiveconfirmedProblemInformation temporarily unavailableAdjustment disorder with depressed mood (F43.21)ActiveconfirmedProblemInformation temporarily unavailablePneumonia, unspecified organism (J18.9)ActiveconfirmedProblem Information temporarily unavailableAbnormal level of hormones in specimens from other organs, systems and tissues (R89.1)ActiveconfirmedProblemInformation temporarily unavailableDisappearance and of family member (Z63.4)Active confirmedProblemInformation temporarily unavailableFatigue (R53.83)Active confirmedProblemInformation temporarily unavailableHyperlipidemia (E78.5)Active confirmedProblemInformation temporarily unavailableHTN (hypertension) (I10) ActiveconfirmedProblemInformation temporarily unavailableAnemia (D64.9)Active confirmedProblemInformation temporarily unavailableDepression (F32.9)Active confirmedProblemInformation temporarily unavailableObstructive sleep apnea (G47.33)ActiveconfirmedProblemInformation temporarily unavailableUrinary incontinence (R32)ActiveconfirmedProblemInformation temporarily unavailable Esophageal reflux (K21.9)ActiveconfirmedProblemInformation temporarily unavailableHearing loss (H91.90)ActiveconfirmedProblemInformation temporarily unavailableLumbar disc herniation (M51.26)ActiveconfirmedProblemInformation temporarily unavailableNicotine addiction (F17.200)ActiveconfirmedProblem Information temporarily unavailableHistory of pulmonary embolism (Z86.711)Active confirmedProblemInformation temporarily unavailableHemorrhoids (K64.9)Active confirmedProblemInformation temporarily unavailableLeft lumbar radiculopathy (M54.16)ActiveconfirmedProblemInformation temporarily unavailableSuicidal ideation (R45.851)ActiveconfirmedProblemInformation temporarily unavailable Hepatic steatosis (K76.0)ActiveconfirmedProblemInformation temporarily unavailableSuperficial thrombophlebitis (I80.9)ActiveconfirmedProblemInformation temporarily unavailableChange in hearing (H91.90)ActiveconfirmedProblem Information temporarily unavailableLumbar radiculopathy, acute (M54.16)Active confirmedProblemInformation temporarily unavailableH/O vasectomy (Z98.52)Active confirmedProblemInformation temporarily unavailableAdult ADHD (F90.9)Active confirmedProblemInformation temporarily unavailablePrimary hypertension (I10) ActiveconfirmedProblemInformation temporarily unavailableEncounter for observed medication taking (Z02.89)ActiveconfirmedProblemInformation temporarily unavailableClass 1 obesity (E66.9)ActiveconfirmedProblemInformation temporarily unavailableDiabetes mellitus (E11.9)ActiveconfirmedProblemInformation temporarily unavailableHeadache, unspecified (R51.9)ActiveconfirmedProblem Information temporarily unavailableOther low back pain (M54.59)Activeconfirmed Vital Signs Blood pressure diastolic 78 mm Hg 11/10/2024 Yishwr04 in11/10/2024lood pressure mm Hg11/10/20248019Emdlwb662 lbs 10/16/2024BMI34.15 kg/m210/16/2024 Encounters Encounter Location Date Provider Diagnosis [address] [address] 05/16/2024 Shruthi Carrero Depression F32.9 ; Testicular hypofunction E29.1 and Class [address] [address] 07/17/2024 Shruthi Carrero Change in hearing H91.90 ; Adult ADHD F90.9 ; Diabetes mellitus E11.9 ; Hyperlipidemia E78.5 and Testicular hypofunction E29.[address] [address] 10/16/2024 Shruthi Carrero Adult ADHD F90.9 ; Diabetes mellitus E11.9 ; Class 1 obesity E66.9 and Hyperlipidemia E78.[address] [address] 03/13/2024 Shruthi Carrero Diabetes mellitus E1 1.9 and Testicular hypofunction E29.[address] [address] 04/03/2024 Shruthi Carrero Testicular hypofunct ion E29.[address] [address] 04/04/2024 Shruthi Carrero [facility] [facility] [place] [address] 05/08/2024Pamela [facility] [facility] [place] [address]/P[facility]ela [facility] [facility] [place] [address]/Pamela CramerDiabetes mellitus E11.9B[facility] [facility] [place] [address] 07/06/2024Pamela [facility] [facility] [place] [address]/04/2024Pamela CramerTesticular hypofunction E29.1 [facility] [facility] [place] [address] 07/14/2024Pamela [facility] [place] [address]/Pamela CramerHearing loss H91.90[facility] [facility] [place] [address]/Pamela CramerAdult ADHD F90.9BHigh[facility] [facility] [place] [address]/03/2024Pamela CramerTesticular hypofunction E29.1 ; Hyperlipidemia E78.5 and Diabetes mellitus E11.9BHigh[facility] [facility] [place] [address]/06/2024Pamela [facility] [facility] [place] [address]Pamela [facility] [facility] [place] [address] 11/01/2024Pamela [facility] [facility] [place] [address]/07/2024Pamela [facility] [address] [place] [address]/12/2024[facility]Testicular hypofunction E29.1 and Diabetes mellitus E11.9BHigh[facility] [address] [place] [facility] [place] [address]/[facility] [place] [address]/07/2024 Jatinder Danielle Assessments Encounter Date Diagnosis (ICD Code) Assessment Notes Treatment Notes Treatment Clinical Notes Section Notes 05/16/2024 Testicular hypofunction (ICD-10 - E29.1) last [...] hypofunction (ICD-10 - E29.1)01/15/2025Diabetes mellitus (ICD-10 - E11.9)5Class 1 obesity (ICD-10 - E66.9) working on [...] below 65 consecutively. Reviewed with patient the fdc effects of Diabetes Mellitus on the body [...] 5Class 2 obesity (ICD-10 - E66.9) continue trulicity has lost about 100 lbs in last 2 years feeling better continue work on diet, exercise 10/16/2024Hyperlipidemia (ICD-10 - E78.5) cholesterol looks good patient stopped statin on his own 07/17/2024Hyperlipidemia (ICD-10 - E78.5) stopped taking statin no SE, just stopped will recheck lipids 3m 07/17/2024Testicular hypofunction (ICD-10 - E29.1) test WNL continue test repeat labs 3m 07/17/2024Otherget eyes checked Plan Of Treatment Pending Test Test Name Order Date Holter Test 07/17/2022 CMP (COMPLETE METABOLIC PANEL) 4 CMP (COMPLETE METABOLIC PANEL) 4 HEMOGLOBIN A1C (GLYCO) 03/13/2024 HEMOGLOBIN A1C (GLYCO) 07/15/2023 HEMOGLOBIN A1C (GLYCO) 01/15/2025 HEMOGLOBIN A1C (GLYCO) 09/23/2023 INSULIN, TOTAL 07/15/2023 LIPID PANEL (CHOL/TRIG/HDL/LDL) 07/15/19 LIPID PANEL (CHOL/TRIG/HDL/LDL) 09/23/19 CBC WITH DIFF (EXP 01/2025) 07/15/2023 PSA, PROSTATE-SPECIFIC ANTIGEN 4 TESTOSTERONE, TOTAL 07/15/2023 TESTOSTERONE, TOTAL 09/23/2023 URIC ACID 07/15/2023 XR Lumbar Spine (2-3 views) * 07/15/2023 TESTOSTERONE 07/07/2024 TESTOSTERONE 10/06/2024 ACETAMINOPHEN 02/04/2025 CBC AUTO DIFF 02/04/2025 PROF 14(COMP METB) 02/04/2025 THYROID PANEL (T4/TSH/FREE T3) 4 ECHOCARDIO M/2D COMPLETE 07/17/2022 ECG 12 lead 02/04/2025 Testosterone 01/15/2025 Testosterone 03/13/2024 Salicylate 02/04/2025 Ethanol 02/04/2025 Insurance Providers Payer Name Payer Address Payer Phone Subscriber Number Group Number Insured Name Patient Relationship to Insured Coverage Start Date Coverage End Date [employer] [place] [employer] [address] [facility] [address] [place] [address] [id number] Kelly Raymondelf - patient is the [id number] 2023 Medications Administered Medication Instructions Date of Administration Dosage Notes Kenalog-40 mgKetorolac Mtounzutbisz58/10/202360 mgOrphenadrine Citrate mgTestosterone Pmgxdtajm29/10/20240.5 mLTestosterone Cypionate 40.5 mLTestosterone Cazpsfwmo01/03/20240.5 mLTestosterone Cypionate 40.5 mL Medical (General) History Medical History History [...] 924.11 Surgical History Surgery Date(Month/Year) Wound Debridement VasectomyWisdom Teeth ExtractionKnee ArthroscopyHospitalization History Reason Date(Month/Year) [facility]- Fall/ Back Pain Mental Trtwnw40/2023Lumbar Back Pain/ Herniated Disc06/2022
[2025-02-04 22:11] LABS: Glucose Urine UA NEGATIVE (NEGATIVE)
[2025-02-04 22:17] LABS: Cast Seen? NONE SEEN #/LPF (NONE SEEN); Crystals Seen? None Seen #/HPF (None Seen); Urine Culture Indicated YES-FRMC
[2025-02-04 22:24] LABS: Cannabinoid Screen Urine POSITIVE (NEGATIVE); Methamphetamines Screen Urine NEGATIVE (NEGATIVE); Tricyclic Antidepressant Urine POSITIVE (NEGATIVE)
== END 2025-02-05 03:34 ==
PROVIDERS: Emergency Provider Student in an Organized Health Care Education/Training Program; Family Provider Family Medicine; PCP Nurse Practitioner Family
DX: F32.A Depression, unspecified (principal); R45.851 Suicidal ideations; Z79.899 Other long term (current) drug therapy; Z56.0 Unemployment, unspecified; Z59.869 Financial insecurity, unspecified; Z86.711 Personal history of pulmonary embolism; F17.290 Nicotine dependence, other tobacco product, uncomplicated
CPT/HCPCS: 36415; 80053; 80179; 80307; 80320; 80329; 81001; 85025; 87086; 93005; 99285